=== PATIENT | male | born 1935 | race Caucasian/White ===

== ENCOUNTER → 2016-10-22 | Outpatient (CLI) | payer MEDICARE ==
[2016-10-22 10:17] LABS: Basophils # (A) 0.1 k/uL (0-0.2); Basophils % (A) 1 %; CH 29.9; CHCM 33.2; Eosinophils # (A) 0.4 k/uL (0-0.7); Eosinophils % (A) 7 %; HCT 46.4 % (39.0-53.0); Luc % (Auto) 2; Lymphocytes # (A) 1.5 k/uL (1.0-4.8); Lymphocytes % (A) 26 %; MCH 29.3 pg (25.0-35.0); MCHC 32.3 g/dL (31.0-37.0); MCV 90.6 fL (80.0-100.0); Mean Platelet Volume 7.8; Monocytes # (A) 0.2 k/uL (0-1.0); Monocytes % (A) 4 %; Neutrophils # (A) 3.6 k/uL (1.3-7.7); Neutrophils % (A) 61 %; RBC 5.12 m/uL (4.30-5.90); RDW 13.7 % (11.5-15.5); WBC 5.9 k/uL (3.8-10.6); WBC (Perox) 6.01
[2016-10-22 10:31] LABS: Potassium 5.4 mmol/L (3.5-5.1)
[2016-10-22 11:53] LABS: Appearance,Urine Clear (Clear); Bilirubin,Urine Negative (Negative); Glucose,Urine (UA) 2+ (Negative); Ketones,Urine Negative (Negative); Leukocyte Esterase,Urine Negative (Negative); Nitrite,Urine Negative (Negative); Protein,Urine Negative (Negative); Specific Gravity,Urine 1.011 (1.001-1.035); UA Billing (MACRO vs. MICRO) CHEM; Urobilinogen,Urine <2.0 mg/dL (<2.0)
== END | disposition home or self-care (01) ==
LOC: LABPAT 09:54
PROVIDERS: ATTEND Urology
DX: N20.0 Calculus of kidney (principal)
CPT/HCPCS: 80051; 81003; 82565; 84520; 85025

== ENCOUNTER 2016-10-29 06:07 | Day surgery (SDC) | payer MEDICARE ==
[2016-10-26 09:10] VITALS: BMI 28.5
[~2016-10-29 06:07] MED LIST: LACTATED RINGERS 1,000 ML IV SCH; LIDOCAINE 1% 20 ML VIAL (10MG/ML) FOR IV START INTRADERMA PRN; Pre Op ABX Message 1 EACH MISC MISCELLANE ONE; fentaNYL (PF) 50 MCG/ML 2 ML AMP IV PRN
--- NOTE | 2016-10-29 07:02 | XR ---
EXAMINATION TYPE: XR KUB DATE OF EXAM: 10/29/2016 6:39 AM COMPARISON: 10/03/2016 HISTORY: Kidney stones TECHNIQUE: 2 views FINDINGS: There is no sign of intestinal obstruction or pneumoperitoneum. Fecal pattern is normal. Th ere is no sign of a mass. There is a 6 mm density over the right kidney could be a renal stone. This is probably in the lower pole right kidney. There is no sign of a mass. IMPRESSION: There is probably a right renal calculus without change compared to old exam. Nonacute ab domen.
[2016-10-29 07:18] VITALS: RESP 16; TEMP 98.1
[2016-10-29 07:28] LABS: Glucose,Whole Blood 107 mg/dL (75-99)
[2016-10-29] MEDS ORDERED: LIDOCAINE 1% INJ 10MG/ML (20 ML MDV) ONE (07:52)
[2016-10-29] MEDS ORDERED: MIDAZOLAM 2 MG/2 ML VIAL ONE (07:52)
[2016-10-29] MEDS ORDERED: fentaNYL (PF) 50 MCG/ML 2 ML AMP ONE (07:52)
[2016-10-29] MEDS ORDERED: PROPOFOL 10 MG/ML 20 ML VIAL IV ONE (07:52)
--- NOTE | 2016-10-29 08:32 | P.OP ---
Date of Procedure: 10/29/16 Preoperative Diagnosis: Right Renal Calculus Postoperative Diagnosis: Same Procedure(s) Performed: Right Extracorporeal Shockwave Lithotripsy (ESWL) Anesthesia: MAC Surgeon: Arik Bradley Estimated Blood Loss (ml): 0 IV fluids (ml): 600 Pathology: none sent Condition: stable Disposition: PACU Indications for Procedure: The patient comes for evaluation of a kdiney stone. He developed and has had intermittent right flank pain since May 2016. An ultrasound showed an 8 mm stone in the rlp calyx. His urine is clear. He will undergo right ESWL to try to rid him of the stone and the pain Operative Findings: Excellent fragmentation. Description of Procedure: The patient was taken to the operating room and placed on the Dornier Avtodoria Delta II lithotripter in the supine position. The calculus was seen on biplanar fluoroscopy. Once the patient was properly positioned and sedated, lithotripsy was performed. The energy level was gradually increased per protocol, to an energy level of 4. After 200 shocks were administered, a 2 minute pause was instituted per protocol. A total of 2000 shocks were given at a rate of 80 shocks per minute. Fluoroscopy was utilized at a minimum to ensure proper positioning and determine the treatment status. The calculus changed in appearance, consistent with fragmentation, and was no longer visible at completion of the procedure. The patient tolerated the procedure well was taken to the recovery room in stable condition. Instructions were given to strain the urine, and the patient will follow-up within one week.
[2016-10-29 08:51] LABS: Glucose,Whole Blood 96 mg/dL (75-99)
[2016-10-29 09:30] VITALS: BP 131/69; PULSE 78
[2016-10-29] MEDS ORDERED: LACTATED RINGERS 1,000 ML IV ONE (09:39)
== END 2016-10-29 10:57 | disposition home or self-care (01) ==
LOC: ORWHC2ENDO 06:07
PROVIDERS: ATTEND Urology
DX: N20.0 Calculus of kidney (principal); N40.0 Benign prostatic hyperplasia without lower urinary tract symptoms; E78.5 Hyperlipidemia, unspecified; E11.9 Type 2 diabetes mellitus without complications; I12.9 Hypertensive chronic kidney disease with stage 1 through stage 4 chronic kidney disease, or unspecified chronic kidney disease; N18.9 Chronic kidney disease, unspecified; G20 Parkinson's disease; M19.90 Unspecified osteoarthritis, unspecified site; Z79.01 Long term (current) use of anticoagulants; Z79.4 Long term (current) use of insulin; Z79.891 Long term (current) use of opiate analgesic; Z79.899 Other long term (current) drug therapy; Z88.1 Allergy status to other antibiotic agents; Z88.5 Allergy status to narcotic agent
CPT/HCPCS: 84132; 74000; 50590; J2250; J2001; J3010; J2704; 99153

== ENCOUNTER → 2016-11-02 | Outpatient (CLI) | payer MEDICARE ==
--- NOTE | 2016-11-02 09:06 | XR ---
EXAMINATION TYPE: XR KUB DATE OF EXAM: 11/02/2016 8:53 AM HISTORY: Pain Comparison: 10/29/2016 Single KUB is submitted for interpretation. Findings: Right renal calculi: Previously noted right-sided renal calculus is not well visualized on today's st udy likely related to overlying bowel content. Right ureteral calculi: 2 calculi are seen within the right hemipelvis measuring 3.6 and 6.0 mm respe ctively. Distal ureteral calculi are difficult to exclude. Left renal calculi: None Visualized. Left ureteral calculi: None Visualized. Pelvic calcifications: None Visualized. Bowel gas pattern is unremarkable. No free air. No mass effects. IMPRESSION: 1. 2 calculi are seen within the right hemipelvis measuring 3.6 and 6.0 mm respectively. Distal urete ral calculi are difficult to exclude.
== END | disposition home or self-care (01) ==
LOC: RADXRMAIN 08:37
PROVIDERS: ATTEND Urology
DX: N20.0 Calculus of kidney (principal)
CPT/HCPCS: 74000

== ENCOUNTER → 2016-12-06 | Outpatient (CLI) | payer MEDICARE ==
--- NOTE | 2016-12-06 08:47 | MR ---
EXAMINATION TYPE: MR lumbar spine wo con DATE OF EXAM: 12/06/2016 8:01 AM COMPARISON: NONE HISTORY: Low back pain TECHNIQUE: Multiplanar, multisequence images of the lumbar spine were acquired. There appears to be transitional vertebral segment with partial lumbarization of S1 suspected with ru dimentary S1-S2 disc. Prior to any scheduled for surgical intervention radiographic correlation is ad vised. T11-T12: This level is imaged in the sagittal plane only. There appears to be disc herniation with ce ntral canal stenosis. Dedicated evaluation of the thoracic spine is recommended. L1-L2: Normal disc appearance without desiccation. No herniation, protrusion or disc bulging. No ca nal stenosis is present. Foramina are patent bilaterally. L2-L3: Normal disc appearance without desiccation. No herniation, protrusion or disc bulging. No ca nal stenosis is present. Foramina are patent bilaterally. L3-L4: Mild disc desiccation noted. Spinal canal is congenitally diminutive in size. Hypertrophic dacia nges of the facet joints and hypertrophy of the ligamentum flavum as well as minimal disc bulging res ult in mild central stenosis. L4-L5: Postoperative changes of lumbar laminectomy. Severe disc desiccation noted. Posterior disc bul ging versus granulation tissue. Constriction of the thecal sac with recurrent central stenosis diffic ult to exclude. L5-S1: Laminectomy changes noted. Partial fusion L5 on S1. No evidence for central stenosis or disc h erniation. Large anterior hypertrophic spur noted. Lumbar segments are intact. No paraspinal masses are identified. AP diameter of the central canal i s congenitally diminutive in size. Conus medullaris has a normal appearance. IMPRESSION: 1. 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 Dedicated evalua tion of the thoracic spine is advised. 2. 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
== END | disposition home or self-care (01) ==
LOC: RADMRIMAIN 07:15
PROVIDERS: ATTEND Internal Medicine Geriatric Medicine
DX: M48.06 Spinal stenosis, lumbar region (principal)
CPT/HCPCS: 72148

== ENCOUNTER → 2017-01-31 | Outpatient (CLI) | payer MEDICARE ==
[2017-01-31 11:23] LABS: Appearance,Urine Clear (Clear); Bilirubin,Urine Negative (Negative); Glucose,Urine (UA) 1+ (Negative); Ketones,Urine Negative (Negative); Leukocyte Esterase,Urine Negative (Negative); Nitrite,Urine Negative (Negative); Protein,Urine Negative (Negative); UA Billing (MACRO vs. MICRO) CHEM; Urobilinogen,Urine <2.0 mg/dL (<2.0)
--- NOTE | 2017-01-31 12:22 | XR ---
EXAMINATION TYPE: XR chest 2V DATE OF EXAM: 01/31/2017 11:44 AM COMPARISON: 06/02/2016 INDICATION: Low back pain presurgical clearance TECHNIQUE: 2 view chest FINDINGS: The heart size is normal. The pulmonary vasculature is normal. Some atelectatic changes are at the left costophrenic angle. Portion of this may be chronic. IMPRESSION: 1. Atelectasis versus scarring left costophrenic angle
== END | disposition home or self-care (01) ==
LOC: RADXRMAIN 10:58
PROVIDERS: ATTEND Internal Medicine Geriatric Medicine
DX: M54.5 Low back pain (principal)
CPT/HCPCS: 71020; 81003

== ENCOUNTER → 2017-04-30 | Outpatient (CLI) | payer MEDICARE ==
--- NOTE | 2017-04-30 17:18 | CT ---
EXAMINATION TYPE: CT iac wo con DATE OF EXAM: 04/30/2017 COMPARISON: NONE HISTORY: Patient complains of left side hearing loss. Patient has history of 3 prior surgeries to th e left ear. CT DLP: 150mGycm Automated exposure control for dose reduction was used. FINDINGS: There is very little pneumatization of the left mastoid sinus. There is osteotomy at the le ft mastoid sinus posterior to the left external auditory canal. There is normal aeration of the middl e ear cavity and epitympanic recess bilaterally. The semicircular canals and the cochlea are symmetri c. Internal auditory canals are symmetric. There is no sign of cerebellopontine angle mass. Visualized p aranasal sinuses appear normal. IMPRESSION: Old osteotomy of the left mastoid sinus and left external auditory canal without change c ompared to old CT scan of the brain of 04/01/2013. There are changes on the left side consistent with some chronic mastoiditis. No abnormality seen of the middle ear.
== END | disposition home or self-care (01) ==
LOC: RADCTMAIN 16:45
PROVIDERS: ATTEND Otolaryngology
DX: H71.90 Unspecified cholesteatoma, unspecified ear (principal)
CPT/HCPCS: 70480

== ENCOUNTER → 2018-05-05 | Outpatient (CLI) | payer MEDICARE ==
[2018-05-05 09:30] LABS: Albumin 4.2 g/dL (3.5-5.0); Potassium 5.8 mmol/L (3.5-5.1); Total Bilirubin 0.7 mg/dL (0.2-1.3); Total Protein 6.9 g/dL (6.3-8.2)
[2018-05-05 09:35] LABS: Basophils # (A) 0.1 k/uL (0-0.2); Basophils % (A) 1 %; Eosinophils # (A) 0.3 k/uL (0-0.7); Eosinophils % (A) 7 %; HCT 43.6 % (39.0-53.0); Lymphocytes # (A) 1.1 k/uL (1.0-4.8); Lymphocytes % (A) 22 %; MCH 30.4 pg (25.0-35.0); MCHC 34.3 g/dL (31.0-37.0); MCV 88.5 fL (80.0-100.0); Mean Platelet Volume 7.5; Monocytes # (A) 0.3 k/uL (0-1.0); Monocytes % (A) 6 %; Neutrophils # (A) 3.2 k/uL (1.3-7.7); Neutrophils % (A) 63 %; Platelet Count 152 k/uL (150-450); RBC 4.93 m/uL (4.30-5.90); RDW 13.9 % (11.5-15.5)
--- NOTE | 2018-05-05 12:16 | XR ---
EXAMINATION TYPE: XR chest 2V DATE OF EXAM: 05/05/2018 COMPARISON: 01/31/2017 HISTORY: 82-year-old male shortness of breath TECHNIQUE: Frontal and lateral views FINDINGS: Heart normal size. Mild elongation thoracic aorta. Pulmonary vasculature within normal limits. No co nsolidation or pleural effusion. IMPRESSION: No acute cardiopulmonary process.
[2018-05-05 18:49] LABS: Hemoglobin A1C 7.5 % (4.0-6.0)
== END | disposition home or self-care (01) ==
LOC: RADXRMAIN 08:18
PROVIDERS: ATTEND Internal Medicine Geriatric Medicine
DX: R06.02 Shortness of breath (principal); I13.10 Hypertensive heart and chronic kidney disease without heart failure, with stage 1 through stage 4 chronic kidney disease, or unspecified chronic kidney disease; E13.42 Other specified diabetes mellitus with diabetic polyneuropathy; R35.0 Frequency of micturition
CPT/HCPCS: 36415; 71046; 80053; 80061; 83036; 83880; 84484; 85025

== ENCOUNTER → 2018-05-09 | Outpatient (CLI) | payer MEDICARE ==
[~2018-05-09] MED LIST changes: -LACTATED RINGERS 1,000 ML IV SCH; -LIDOCAINE 1% 20 ML VIAL (10MG/ML) FOR IV START INTRADERMA PRN; -Pre Op ABX Message 1 EACH MISC MISCELLANE ONE; +REGADENOSON 0.4 MG/5 ML SYRINGE IV ONE; -fentaNYL (PF) 50 MCG/ML 2 ML AMP IV PRN
--- NOTE | 2018-05-09 10:44 | NM ---
EXAMINATION TYPE: NM stress lexiscan cardiolite DATE OF EXAM: 05/09/2018 COMPARISON: NONE HISTORY: Chest pain, hypertension, shortness of breath, hyperlipidemia, diabetes, and family history of coronary artery disease. TECHNIQUE: After the intravenous administration of 10.17 mCi Tc 99m Sestamibi - Cardiolite resting S PECT images acquired 45 minutes post injection. The patient received 0.4mg Lexiscan, 23.5 mCi Tc 99m Sestamibi - Stress images obtained [address] injection FINDINGS: Review of stress and rest SPECT images demonstrates a fixed defect within the inferior lateral wall m inimally increasing in intensity and its inferior wall component on stress imaging. Gated analysis s hows dyskinesis in the inferior wall and otherwise wall motion with an estimated left ventricular eje ction fraction of 55 % on stress imaging. TID is upper limits of normal measuring about 1.24. IMPRESSION: 1. 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 2. Transient ischemic dilatation coefficient is upper limits of normal. This can be seen in balanced 3 vessel ischemia are cardiomyopathy. 3. Estimated left ventricular ejection fraction of 55% on stress imaging.
--- NOTE | 2018-05-09 10:44 | ECHOF ---
Referral Reason:R06.02 SOB, R07.9 Chest pain MEASUREMENTS -------- HEIGHT: 172.7 cm WEIGHT: 81.6 kg BP: IVSd: 1.5 cm (0.6 - 1.1) LVIDd: 4.1 cm (3.9 - 5.3) LVPWd: 1.5 cm (0.6 - 1.1) IVSs: 2.3 cm LVIDs: 2.9 cm LVPWs: 2.0 cm Ao Diam: 3.7 cm (2.0 - 3.7) AV Cusp: 1.7 cm (1.5 - 2.6) LA Diam: 3.4 cm (2.7 - 3.8) MV EXCURSION: 13.536 mm (> 18.000) MV EF SLOPE: 46 mm/s (70 - 150) EPSS: 1.3 cm MV E Andrae: 0.55 m/s MV DecT: 236 ms MV A Andrae: 1.00 m/s MV E/A Ratio: 0.55 RAP: 5.00 mmHg RVSP: 13.29 mmHg FINDINGS -------- Sinus rhythm. This was a technically good study. The left ventricular size is normal. There is moderate concentric left ventricular hypertrophy. O verall left ventricular systolic function is normal with, an EF between 55 - 60 %. The right ventricle is normal in size and function. The left atrium is normal in size. The right atrium is normal in size. Aortic valve is trileaflet and is mildly thickened. The mitral valve leaflets are mildly thickened. There is trace mitral regurgitation. Trace tricuspid regurgitation present. The right ventricular systolic pressure, as measured by Dopp ler, is 13.29mmHg. Pulmonic valve appears structurally normal. The aortic root size is normal. Normal inferior vena cava with normal inspiratory collapse consistent with estimated right atrial pre ssure of 5 mmHg. The pericardium is normal. CONCLUSIONS -------- 1. Sinus rhythm. 2. This was a technically good study. 3. The left ventricular size is normal. 4. There is moderate concentric left ventricular hypertrophy. 5. Overall left ventricular systolic function is normal with, an EF between 55 - 60 %. 6. The right ventricle is normal in size and function. 7. The left atrium is normal in size. 8. The right atrium is normal in size. 9. Aortic valve is trileaflet and is mildly thickened. 10. The mitral valve leaflets are mildly thickened. 11. There is trace mitral regurgitation. 12. Trace tricuspid regurgitation present. 13. The right ventricular systolic pressure, as measured by Doppler, is 13.29mmHg. 14. Pulmonic valve appears structurally normal. 15. The aortic root size is normal. 16. Normal inferior vena cava with normal inspiratory collapse consistent with estimated right atrial pressure of 5 mmHg. 17. The pericardium is normal. SQUAD BOSS: Magda Live RDCS
--- NOTE | 2018-05-09 11:10 | EST ---
EXERCISE STRESS AGE: 82 SEX: M HT: 6' WT: 215 PROTOCOL: Lexiscan Cardiolite Stress Test. HEART RATE AT REST: 70 BLOOD PRESSURE REST: 141/71 MAXIMUM HEART RATE ACHIEVED: 95 MAXIMUM BLOOD PRESSURE: 143/54 85% MPHR: 116 100% MPHR: 137 INDICATIONS: Chest pain. CLINICAL INFORMATION: Baseline EKG shows sinus rhythm, normal axis, normal intervals. Patient was given intravenous Lexiscan as per protocol. Did not have chest pain or diagnostic ST-segment depression. CONCLUSION: 1. Negative stress test by EKG criteria. 2. Cardiolite portion of the stress test will be reported separately. MMODL / IJN: [id number] /
== END | disposition home or self-care (01) ==
LOC: RADNMMAIN 07:50
PROVIDERS: ATTEND Internal Medicine Geriatric Medicine
DX: I35.8 Other nonrheumatic aortic valve disorders (principal); I05.9 Rheumatic mitral valve disease, unspecified
CPT/HCPCS: 93017; 93306; 78452; A9500; J2785

== ENCOUNTER 2018-06-03 07:59 | Day surgery (SDC) | payer MEDICARE ==
[2018-05-26 10:17] VITALS: BMI 29.8
[~2018-06-03 07:59] MED LIST changes: +ALPRAZolam 0.25 MG TAB PO PRN; +ASPIRIN 325 MG TAB PO ONE; -REGADENOSON 0.4 MG/5 ML SYRINGE IV ONE; +SODIUM CHLORIDE 0.9% 1,000 ML in EMPTY BAG 1 BAG IV ONE
[2018-06-03 08:54] LABS: Glucose,Whole Blood 122 mg/dL (75-99)
[2018-06-03] MEDS ORDERED: LIDOCAINE 1% INJ 10MG/ML (20 ML MDV) ONE (13:38)
[2018-06-03] MEDS ORDERED: VERAPAMIL 2.5 MG/ML 2 ML AMP ONE (13:38)
[2018-06-03] MEDS ORDERED: MIDAZOLAM 2 MG/2 ML VIAL ONE (13:38)
[2018-06-03] MEDS ORDERED: fentaNYL (PF) 50 MCG/ML 2 ML AMP ONE (14:09)
[2018-06-03] MEDS ORDERED: fentaNYL (PF) 50 MCG/ML 2 ML AMP IV ONE (14:11)
[2018-06-03] MEDS ORDERED: SODIUM CHLORIDE 0.9% 1,000 ML IV ONE (14:12)
[2018-06-03] MEDS ORDERED: MIDAZOLAM 2 MG/2 ML VIAL IV ONE (14:12)
[2018-06-03] MEDS ORDERED: LIDOCAINE 1% INJ 10MG/ML (20 ML MDV) SQ ONE (14:12)
[2018-06-03] MEDS ORDERED: HEPARIN SODIUM 1,000 UN/ML (10ML VL) ONE (14:16)
[2018-06-03] MEDS: VERAPAMIL SYRINGE (5 MG/10 ML) INTRAARTER ONE ×2 (14:17→14:35)
[2018-06-03] MEDS ORDERED: HEPARIN SODIUM 1,000 UN/ML (10ML VL) IV ONE (14:17)
[2018-06-03] MEDS ORDERED: IOPAMIDOL-370 100ML BTL INJ ONE (14:26)
[2018-06-03] MEDS ORDERED: RX INFO: IV CONTRAST WAS GIVEN 1 EACH MISC MISCELLANE PRN (14:52)
[2018-06-03] MEDS ORDERED: ISOSORBIDE MONONITRATE ER 30 MG TAB.ER.24H PO STA (14:56)
--- NOTE | 2018-06-03 15:03 | P.PCN ---
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 His stress test showed evidence of inferior wall [place] with malcolm- infarction ischemia. Patient's LV function is preserved. Patient is advised to have a cardiac catheterization for definitive diagnosis. Patient has moderate renal failure and was advised that cardiac catheterization may jeopardize kidney function and sometimes may result in dialysis. Patient and fully understood and accepted. CONSENT:I have discussed the risks, benefits and alternative therapies for the above-mentioned procedure and for both sedation/analgesia as well as necessary blood product administration, if indicated, as they pertain to this patient. The patient has indicated understanding and acceptance of the risks and procedures discussed. PROCEDURE: Patient was brought to the lab in a fasting state. Patient was given some IV sedation. The right wrist is infiltrated with lidocaine and right radial artery was entered using Seldinger technique. A 6-Kazakh catheter was left in place and selective coronary arteriography was performed. Patient tolerated the procedure well. TR band was applied for hemostasis. No immediate complications were noted and patient was transferred to [facility] in a stable condition Conscious Sedation: Versed 1mg Fentanyl 25 g Duration 23 minutes HEMODYNAMICS: The aortic pressure is about 110/70. Left ventricular end- diastolic pressures were not measured SELECTIVE CORONARY ARTERIOGRAPHY: LEFT MAIN: Normal length with mild distal disease with 30% luminal narrowing THE LEFT ANTERIOR DESCENDING CORONARY ARTERY:. This is a fair caliber vessel with ectatic changes and mild irregularities with areas of 30% stenosis. No critical lesions are noted THE LEFT CIRCUMFLEX AND IS CORONARY ARTERY:. This is a moderate caliber vessel giving rise good-sized OM branch. The OM branch is about 94% stenosis proximally. The mid circumflex also has about 9095% stenosis THE RIGHT CORONARY ARTERY:. This is a good caliber vessel ectatic with a diffuse plaque without any Sigmund focal lesions. The right coronary artery is a dominant vessel LEFT VENTRICULOGRAPHY: Not performed FINAL IMPRESSION:. 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 Because of patient's kidney failure, no intervention is done today. Patient will continued on hydration and his renal function will be checked tomorrow. We'll also get and renal consult. Patient also is ALLERGIC to Nickel. I will discuss with the Dr. Wells before proceeding with intervention. PROGNOSIS: Guarded
[2018-06-03 17:18] LABS: Glucose,Whole Blood 186 mg/dL (75-99)
[2018-06-03] MEDS ORDERED: FLUTICASONE 50MCG/SPRAY NASAL 16GM EA NOSTRIL PRN (17:22)
[2018-06-03] MEDS ORDERED: HYDROcodone/APAP 7.5-325MG 1 EACH TAB PO PRN (17:22)
[2018-06-03] MEDS ORDERED: CYCLOBENZAPRINE 10 MG TAB PO PRN (17:22)
[2018-06-03] MEDS: SODIUM CHLORIDE 0.9% 1,000 ML IV SCH (17:23)
[2018-06-03 17:43] VITALS: RESP 18
[2018-06-03] MEDS: CARBIDOPA-LEVODOPA 25-100 MG 1 EACH TAB PO SCH ×2 (17:59→21:07)
[2018-06-03 20:56] LABS: Glucose,Whole Blood 215 mg/dL (75-99)
[2018-06-03] MEDS: GABAPENTIN 300 MG CAP PO SCH (21:07)
[2018-06-04] MEDS: METOPROLOL TARTRATE 25 MG TAB PO SCH ×2 (00:33→08:27)
[2018-06-04 03:07] LABS: Glucose,Whole Blood 174 mg/dL (75-99)
[2018-06-04 05:52] LABS: Glucose,Whole Blood 156 mg/dL (75-99)
[2018-06-04] MEDS ORDERED: INSULIN DETEMIR 100 UNIT/ML 10 ML VIAL SQ SCH ×5 (06:25→21:00)
[2018-06-04 06:29] LABS: Calcium 8.7 mg/dL (8.4-10.2)
[2018-06-04] MEDS ORDERED: INSULIN ASPART 100 UNIT/ML 1 ML 10 ML VIAL SQ SCH (07:30)
[2018-06-04] MEDS: CARBIDOPA-LEVODOPA 25-100 MG 1 EACH TAB PO SCH (08:27)
[2018-06-04] MEDS: GABAPENTIN 300 MG CAP PO SCH (08:27)
[2018-06-04] MEDS: SODIUM CHLORIDE 0.9% 1,000 ML IV SCH (08:28)
[2018-06-04 08:54] VITALS: BP 145/74; PULSE 58; TEMP 97.9
[2018-06-04] MEDS ORDERED: FUROSEMIDE 20 MG TAB PO SCH (09:00)
[2018-06-04] MEDS ORDERED: DOCUSATE 100 MG CAP PO SCH (09:00)
[2018-06-04] MEDS ORDERED: LORATADINE 10 MG TAB PO SCH (09:00)
[2018-06-04] MEDS ORDERED: TAMSULOSIN 0.4 MG CAP.ER.24H PO SCH (09:00)
[2018-06-04] MEDS ORDERED: ASPIRIN 81 MG PO SCH (09:00)
[2018-06-04] MEDS ORDERED: FINASTERIDE 5 MG TAB PO SCH (09:00)
[2018-06-04] MEDS ORDERED: LISINOPRIL 2.5 MG TAB PO SCH (09:00)
[2018-06-04] MEDS ORDERED: ALLOPURINOL 100 MG TAB PO SCH (09:00)
[2018-06-04] MEDS ORDERED: ISOSORBIDE MONONITRATE ER 30 MG TAB.ER.24H PO SCH (11:15)
--- NOTE | 2018-06-04 14:54 | P.PN ---
Subjective Progress Note Date: 06/04/18 Discharge note This is an 83-year-old gentleman with history of hypertension, hyperlipidemia, diabetes, who was brought to the hospital by Dr. Ybarra because of symptoms of angina. He underwent a cardiac catheterization yesterday which revealed an atypical lesion involving the OM branch and the circumflex with diffuse ectasia and plaque and the rest of the vessels. Originally the plan was to place a stent in the OM branch and the circumflex. 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 This case was discussed by Dr. Ybarra and Dr. Wells, and the decision was made to maximize his medications and discharge him home today. Continue maximum medical therapy at this time. He was seen and examined this morning, he denied any chest pain or difficulty in breathing. Blood pressure 130/60 with a heart rate in the 60s, 95% on room air. Objective - Vital Signs Vital signs: Vital Signs Temp 97.9 F 06/04/18 08:00 Pulse 58 L 06/04/18 08:00 Resp 18 06/04/18 08:00 BP 145/74 06/04/18 08:00 Pulse Ox 96 06/04/18 08:00 Intake & Output 06/03/18 06/04/18 06/04/18 18:59 06:59 18:59 Intake Total 400 450 600 Balance 400 450 600 Weight 102.2 kg Intake: IV 200 450 600 Sodium Chloride 0.9% 1, 100 450 600 000 ml @ 75 mls/hr IV . [id number] [facility] Rx#:[id number] Oral 200 - Exam PHYSICAL EXAMINATION: GENERAL: 83-year-old gentleman in no acute distress at the time of my examination HEENT: Head is atraumatic, normocephalic. Pupils equal, round. Sclera anicteric. Conjunctiva are clear. Mucous membranes of the mouth are moist. Neck is supple. There is no elevated jugular venous pressure.] bruit is heard. HEART EXAMINATION: [Heart S1, S2 normal. No murmur or gallop heard.] CHEST EXAMINATION:[ Lungs are clear to auscultation and precussion. No chest wall tenderness is noted on palpation or with deep breathing.] ABDOMEN: [ Soft, nontender. Bowel sounds are heard. No organomegaly noted]. EXTREMITIES:[ 2+ peripheral pulses with no evidence of peripheral edema and no calf tenderness noted]. Right groin soft, no evidence of any hematoma. NEUROLOGIC [patient is awake, alert and oriented ?-3.] . - Labs CBC & Chem 7: 06/04/18 05:48 Labs: Abnormal Lab Results - Last 24 Hours (Table) 06/03/18 06/03/18 06/04/18 Range/Units 17:13 20:54 03:07 Chloride (98-107) mmol/L BUN (9-20) mg/dL Creatinine (0.66-1.25) mg/dL Glucose (74-99) mg/dL POC Glucose (mg/dL) 186 H 215 H 174 H (75-99) mg/dL 06/04/18 06/04/18 Range/Units 05:48 05:51 Chloride 110 H (98-107) mmol/L BUN 40 H (9-20) mg/dL Creatinine 2.00 H (0.66-1.25) mg/dL Glucose 157 H (74-99) mg/dL POC Glucose (mg/dL) 156 H (75-99) mg/dL Assessment and Plan Plan: Assessment and plan #1 symptoms suggestive of angina, status post cardiac catheterization which revealed a lesion in the circumflex and OM branch. Made at this time to medical therapy as the patient does have an ALLERGY to nickel and stents containing nickel. #2 hypertension #3 hyperlipidemia #4 diabetes Plan Patient will be discharged home today on aspirin 81 mg daily, Lipitor will be increased to 80 mg daily, Sinemet, Lasix 20 mg daily, insulin as at home, Imdur 30 mg daily, Zestril 2-1/2 mg daily, Lopressor 25 mg daily, Dr. Wagner as needed for chest pain. Follow-up appointment will be made with Dr. Ybarra in the office post discharge. We will also obtain lytes BUN and creatinine in 5 days. Creatinine today 2.0. DNP note has been reviewed, I agree with a documented findings and plan of care. Patient was seen and examined.
[2018-06-04] MEDS ORDERED: ATORVASTATIN 10 MG TAB PO SCH (17:30)
== END 2018-06-04 11:50 | disposition home or self-care (01) ==
LOC: CATHCVL 07:59 → 6SEL 14:32 → CATHCVL 06-04 11:50
PROVIDERS: ATTEND Internal Medicine Cardiovascular Disease
DX: I25.10 Atherosclerotic heart disease of native coronary artery without angina pectoris (principal); R94.39 Abnormal result of other cardiovascular function study; I10 Essential (primary) hypertension; E11.9 Type 2 diabetes mellitus without complications; E78.00 Pure hypercholesterolemia, unspecified; N19 Unspecified kidney failure; G20 Parkinson's disease; Z82.49 Family history of ischemic heart disease and other diseases of the circulatory system; Z79.4 Long term (current) use of insulin; Z79.899 Other long term (current) drug therapy; Z91.048 Other nonmedicinal substance allergy status; Z88.1 Allergy status to other antibiotic agents; Z88.5 Allergy status to narcotic agent; Z88.8 Allergy status to other drugs, medicaments and biological substances
CPT/HCPCS: 93454; 80048; C1894; C1769; S0138; J2250; J2001; J3010; J1644; Q9967

== ENCOUNTER → 2018-06-13 | Outpatient (CLI) | payer MEDICARE ==
[2018-06-13 14:03] LABS: Calcium 8.6 mg/dL (8.4-10.2); Potassium 4.6 mmol/L (3.5-5.1)
== END | disposition home or self-care (01) ==
LOC: LABWHC1 13:21
PROVIDERS: ATTEND Internal Medicine Cardiovascular Disease
DX: L24.81 Irritant contact dermatitis due to metals (principal); I25.10 Atherosclerotic heart disease of native coronary artery without angina pectoris; I10 Essential (primary) hypertension; N19 Unspecified kidney failure
CPT/HCPCS: 36415; 80048

== ENCOUNTER → 2019-01-28 | Outpatient (CLI) | payer MEDICARE ==
[2019-01-28 10:43] LABS: HCT 48.1 % (39.0-53.0); HGB 15.4 gm/dL (13.0-17.5); MCH 29.2 pg (25.0-35.0); MCHC 32.1 g/dL (31.0-37.0); Mean Platelet Volume 7.4; Platelet Count 146 k/uL (150-450); RBC 5.29 m/uL (4.30-5.90); WBC 6.3 k/uL (3.8-10.6)
[2019-01-28 14:43] LABS: Appearance,Urine Clear (Clear); Bilirubin,Urine Negative (Negative); Blood,Urine Negative (Negative); Color,Urine Yellow; Glucose,Urine (UA) Negative (Negative); Ketones,Urine Negative (Negative); Leukocyte Esterase,Urine Negative (Negative); Nitrite,Urine Negative (Negative); Protein,Urine Negative (Negative); Specific Gravity,Urine 1.013 (1.001-1.035); Urobilinogen,Urine <2.0 mg/dL (<2.0)
[2019-01-28 16:54] LABS: Parathyroid Hormone Intact 252.3 pg/mL (14.0-72.0)
[2019-01-28 17:56] LABS: Iron Saturation 34.4 (15.00-50.00)
[2019-01-28 18:05] LABS: Vitamin D 25 Hydroxy 18.9 ng/mL (30.0-100.0)
[2019-01-28 18:07] LABS: Magnesium 2.2 mg/dL (1.5-2.4)
[2019-01-28 18:08] LABS: Anion Gap 9.3 mmol/L (4.00-12.00); Calcium 9.1 mg/dL (8.7-10.3); Carbon Dioxide 23.7 mmol/L (21.6-31.8); Phosphorus 3.3 mg/dL (2.4-5.1); Potassium 4.9 mmol/L (3.5-5.5)
[2019-01-28 18:38] LABS: Uric Acid 8.7 mg/dL (3.7-8.7)
== END | disposition home or self-care (01) ==
LOC: LABWHC1 09:29
PROVIDERS: ATTEND Nurse Practitioner Family
DX: N39.0 Urinary tract infection, site not specified (principal); N17.9 Acute kidney failure, unspecified; D64.9 Anemia, unspecified; M10.9 Gout, unspecified; E55.9 Vitamin D deficiency, unspecified; N25.81 Secondary hyperparathyroidism of renal origin
CPT/HCPCS: 36415; 80048; 81003; 82306; 82728; 83540; 83550; 83735; 83970; 84100; 84550; 85027

== ENCOUNTER → 2019-02-16 | Outpatient (CLI) | payer MEDICARE ==
--- NOTE | 2019-02-17 11:48 | US ---
EXAMINATION TYPE: US kidneys/renal and bladder DATE OF EXAM: 02/16/2019 COMPARISON: NONE CLINICAL HISTORY: N17.9 Acute Kidney Injury. EXAM MEASUREMENTS: Right Kidney: 10.2 x 4.8 x 4.8 cm Left Kidney: 11.2 x 3.8 x 5.0 cm Right Kidney: lobular surface texture Left Kidney: echogenic foci measuring 3mm, stone vs vascular calcification, lobular surface texture Bladder: wnl IMPRESSION: 1. Probable nonobstructing cortical renal calcification left kidney.
== END | disposition home or self-care (01) ==
LOC: RADUSWWP 16:03
PROVIDERS: ATTEND Nurse Practitioner Family
DX: N17.9 Acute kidney failure, unspecified (principal)
CPT/HCPCS: 76770

== ENCOUNTER → 2019-05-01 | Outpatient (CLI) | payer MEDICARE ==
[2019-05-01 16:42] LABS: African American GFR (CKD) 30 (>60 ml/min/1.73 sqM); Anion Gap 12 mmol/L; Blood Urea Nitrogen 65 mg/dL (9-20); Calcium 8.9 mg/dL (8.4-10.2); Carbon Dioxide 17 mmol/L (22-30); Chloride 110 mmol/L (98-107); Glucose 67 mg/dL (74-99); Potassium 5.2 mmol/L (3.5-5.1); Sodium 139 mmol/L (137-145)
== END | disposition home or self-care (01) ==
LOC: LABWHC1 16:06
PROVIDERS: ATTEND Internal Medicine Nephrology
DX: N17.9 Acute kidney failure, unspecified (principal)
CPT/HCPCS: 36415; 80048

== ENCOUNTER → 2019-05-05 | Outpatient (CLI) | payer MEDICARE ==
[2019-05-05 18:54] LABS: Potassium 5.2 mmol/L (3.5-5.5)
== END | disposition home or self-care (01) ==
LOC: LABWHC1 14:02
PROVIDERS: ATTEND Otolaryngology
DX: E11.9 Type 2 diabetes mellitus without complications (principal); I10 Essential (primary) hypertension
CPT/HCPCS: 36415; 84132; 84295

== ENCOUNTER → 2019-05-05 | Outpatient (CLI) | payer MEDICARE ==
--- NOTE | 2019-05-05 20:06 | XR ---
EXAMINATION TYPE: XR Hip Limited LT DATE OF EXAM: 05/05/2019 CLINICAL HISTORY: Left hip pain. TECHNIQUE: AP and frogleg views of the left hip are obtained. COMPARISON: None. FINDINGS: There is no acute fracture/dislocation evident in the left hip. Mild to moderate acetabula r spurring is seen. Joint space is fairly well maintained. Some spurring near level of greater troch anter is present. The overlying soft tissue appears unremarkable. IMPRESSION: As above.
== END | disposition home or self-care (01) ==
LOC: RADXRMAIN 13:20
PROVIDERS: ATTEND Internal Medicine Geriatric Medicine
DX: M76.892 Other specified enthesopathies of left lower limb, excluding foot (principal)
CPT/HCPCS: 73501

== ENCOUNTER → 2019-05-05 | Outpatient (CLI) | payer MEDICARE ==
--- NOTE | 2019-05-05 14:29 | CT ---
EXAMINATION TYPE: CT sinus wo con DATE OF EXAM: 05/05/2019 COMPARISON: NONE HISTORY: Right sided facial pain and pressure CT DLP: 553 mGycm. Automated Exposure Control for Dose Reduction was Utilized. TECHNIQUE: CT scan of the sinuses is performed without contrast, axial images are obtained, coronal r eformatted images are also reviewed. FINDINGS: The visualized paranasal sinuses and mastoid air cells are well aerated and however there appears to be postsurgical change of the left mastoid air cells. The ostiomeatal complexes are patent. Small mid dle nasal turbinate waqar bullosa is seen on the right. Small nonobstructive Farshda cells are presen t bilaterally. Frontal recesses are patent. No significant nasal turbinate mucosal hypertrophy. Bony orbits are intact. Temporomandibular joints are symmetric and unremarkable. The maxillary spine and n tevin bone are intact. There is slight undulation of the nasal septum however it is overall midline. Evaluation of intracranial structures are suboptimal given technique however sulcal prominence and ve ntricular prominence are seen likely on the basis of age-related atrophy. Orbits appear symmetric. Ri ght maxillary molar periapical lucency is noted. Near cortical breakthrough seen on the buccal surfac e. No surrounding fluid collection. IMPRESSION: 1. The sinuses are clear and the ostiomeatal complex is patent bilaterally. 2. Nonobstructing small right middle nasal turbinate waqar bullosa and bilateral Farshad cells. 3. Right maxillary molar dental disease with near cortical breakthrough. This may account for this pa tient's right-sided facial pain. Direct visualization is recommended.
== END | disposition home or self-care (01) ==
LOC: RADCTMAIN 13:15
PROVIDERS: ATTEND Otolaryngology
DX: J32.8 Other chronic sinusitis (principal); K08.9 Disorder of teeth and supporting structures, unspecified; Z88.1 Allergy status to other antibiotic agents; Z88.6 Allergy status to analgesic agent; Z88.5 Allergy status to narcotic agent
CPT/HCPCS: 36415; 70486; 84132; 84295

== ENCOUNTER 2019-07-18 21:35 | Inpatient (IN) | payer MEDICARE ==
[2019-07-18] MEDS ORDERED: SODIUM CHLORIDE 0.9% 500 ML 500 ML IV STA (22:27)
[2019-07-18] MEDS ORDERED: ONDANSETRON 4 MG/2 ML VIAL IVP STA (22:27)
[2019-07-18] MEDS ORDERED: HYDROmorphone 0.5 MG/0.5 ML SYRINGE IVP STA (22:28)
[2019-07-18 23:13] LABS: Basophils % (A) 1 %; Eosinophils # (A) 0.7 k/uL (0-0.7); Eosinophils % (A) 8 %; HCT 41.9 % (39.0-53.0); HGB 13.7 gm/dL (13.0-17.5); Lymphocytes # (A) 1.4 k/uL (1.0-4.8); Lymphocytes % (A) 18 %; MCH 30.2 pg (25.0-35.0); MCHC 32.6 g/dL (31.0-37.0); MCV 92.5 fL (80.0-100.0); Mean Platelet Volume 7.2; Monocytes # (A) 0.4 k/uL (0-1.0); Monocytes % (A) 4 %; Neutrophils # (A) 5.5 k/uL (1.3-7.7); Neutrophils % (A) 68 %; Platelet Count 182 k/uL (150-450); RBC 4.53 m/uL (4.30-5.90); RDW 13.7 % (11.5-15.5); WBC 8.1 k/uL (3.8-10.6)
[2019-07-18 23:22] LABS: Albumin 4.3 g/dL (3.5-5.0); Potassium 5.4 mmol/L (3.5-5.1); Total Bilirubin 0.7 mg/dL (0.2-1.3); Total Protein 7.2 g/dL (6.3-8.2)
--- NOTE | 2019-07-18 23:53 | CT ---
EXAMINATION TYPE: CT abdomen pelvis wo con DATE OF EXAM: 07/18/2019 COMPARISON: None HISTORY: RLQ pain CT DLP: 1054.4 mGycm Automated exposure control for dose reduction was used. TECHNIQUE: Helical acquisition of images was performed from the lung bases through the pelvis. FINDINGS: There is some infiltrate and atelectasis at the lung bases. Heart is enlarged. There is coronary jasmyne ry calcification. Liver spleen pancreas appear normal. Bile ducts are not dilated. Stomach has normal size. There is no evidence of pancreatic mass. There is pancreatic atrophy. There is no adrenal mass. Kidneys show no hydronephrosis. There is no retroperitoneal adenopathy. Ure ters are not dilated. Bladder distends smoothly. There is 7 mm calculus in the urinary bladder on the left side. Prostate is enlarged and measures 5.8 cm. There is no inguinal hernia. Appendix appears n ormal. There is no mesenteric edema. There is no ascites or free air. There is no sign of a bowel obs truction. There is previous posterior fusion surgery at L4-5. There is lower lumbar laminectomy. There are spon dylotic changes in the lower thoracic spine and lower lumbar spine. There is no compression fracture. Bony pelvis is intact. IMPRESSION: BILATERAL LOWER LOBE PULMONARY BASILAR INFILTRATES AND ATELECTASIS. CARDIOMEGALY. NO ACUTE ABNORMALITY WITHIN THE ABDOMEN PELVIS. I DO NOT SEE A CAUSE FOR RIGHT LOWER QUADRANT PAIN.
[2019-07-19 01:42] LABS: Appearance,Urine Clear (Clear); Bilirubin,Urine Negative (Negative); Blood,Urine Negative (Negative); Color,Urine Yellow; Glucose,Urine (UA) Negative (Negative); Ketones,Urine Negative (Negative); Leukocyte Esterase,Urine Negative (Negative); Nitrite,Urine Negative (Negative); Protein,Urine Negative (Negative); Specific Gravity,Urine 1.015 (1.001-1.035); Urobilinogen,Urine <2.0 mg/dL (<2.0)
--- NOTE | 2019-07-19 01:42 | ED ---
Abdominal Pain HPI - General Source: patient Mode of arrival: wheelchair Limitations: no limitations <Fatuma Atkins - Last Filed: 07/19/19 04:02> <Brooklyn Salcedo - Last Filed: 07/19/19 06:31> - General Chief Complaint: Abdominal Pain Stated Complaint: abd pain Time Seen by Provider: 07/18/19 22:06 - History of Present Illness Initial Comments: 84-year-old male patient presents to the emergency department today for evaluation of right upper quadrant pain with radiation to the right flank. Patient states pain started for the last couple of days but has been worsening. States the pain worsens significantly with deep inspiration, laughing, or coughing. Denies any nausea or vomiting. States a couple of weeks ago he was constipated, took several stool softeners and did have large bowel movement. St ates there was a period of 7 days where he did not have a bowel movement and then started to have regular bowel movements for the last few days. Patient states he has had 2 bowel movements today. He denies any diarrhea, hematochezia, or melena. He denies any fever or chills. He denies any hematu kay, dysuria, urinary frequency, urinary urgency. States he does have chronic kidney disease and does have decreased urine output related to this. Denies any history of abdominal surgery. Patient denies any recent rash, chest pain, numbness, tingling, dizziness, weakness, headache, visual changes, or any other complaints. (Fatuma Atkins) - Related Data Home Medications Medication Instructions Recorded Confirmed Allopurinol [Zyloprim] 100 mg PO DAILY 06/02/16 07/18/19 Cyclobenzaprine [Flexeril] 10 mg PO HS PRN 06/02/16 07/18/19 Furosemide [Lasix] 20 mg PO BID 06/02/16 07/18/19 rOPINIRole HCL [Requip] 0.75 mg PO BID 06/02/16 07/18/19 Gabapentin [Neurontin] 600 mg PO BID 10/26/16 07/18/19 Hydrocodone/Acetaminophen [Lortab 1 - 2 tab PO Q6HR PRN 10/26/16 07/18/19 7.5-325 mg Tablet] Cetirizine HCl [Zyrtec] 10 mg PO DAILY 05/26/18 07/18/19 Docusate [Colace] 100 mg PO BID 05/26/18 07/18/19 Finasteride [Proscar] 5 mg PO DAILY 05/26/18 07/18/19 Insulin Aspart [NovoLOG Flexpen] 15 units SQ AC-TID 05/26/18 07/18/19 Metoprolol Tartrate [Lopressor] 25 mg PO BID 05/26/18 07/18/19 Tamsulosin HCl [Flomax] 0.4 mg PO DAILY 05/26/18 07/18/19 Albuterol Sulfate [Proair Hfa] 2 puff INHALATION RT-Q4H PRN 07/18/19 07/18/19 Aspirin 81 mg PO DAILY 07/18/19 07/18/19 Atorvastatin [Lipitor] 40 mg PO DAILY 07/18/19 07/18/19 Carbidopa-Levodopa 25-100 mg 1 tab PO TID 07/18/19 07/18/19 [Sinemet 25-100 mg] Clopidogrel [Plavix] 75 mg PO DAILY 07/18/19 07/18/19 Ergocalciferol [Vitamin D2] 50,000 unit PO Q14D 07/18/19 07/18/19 Insulin Aspart [NovoLOG Flexpen] See Protocol SQ AC-TID 07/18/19 07/18/19 Insulin Glargine,Hum.rec.anlog 65 units SQ DAILY 07/18/19 07/18/19 [Charlotte Ledesma] Previous Rx's Medication Instructions Recorded Isosorbide Mononitrate ER [Imdur] 30 mg PO DAILY #30 tab.er.24h 06/04/18 Nitroglycerin Sl Tabs [Nitrostat] 0.4 mg SUBLINGUAL Q5M PRN #25 tab 06/04/18 Allergies Allergy/AdvReac Type Severity Reaction Status Date / Time baclofen AdvReac Severe Nausea & Verified 07/18/19 22:28 Vomiting hydromorphone HCl AdvReac Nausea & Verified 07/18/19 22:28 [From Dilaudid] Vomiting morphine AdvReac Hallucinati Verified 07/18/19 22:28 ons vancomycin AdvReac Chills, Verified 07/18/19 22:28 Sweating, Did not feel well Review of Systems ROS Other: All systems not noted in ROS Statement are negative. <Fatuma Atkins M - Last Filed: 07/19/19 04:02> ROS Other: All systems not noted in ROS Statement are negative. <Brooklyn Salcedo - Last Filed: 07/19/19 06:31> ROS Statement: Those systems with pertinent positive or pertinent negative responses have been documented in the HPI. Past Medical History Past Medical History: Coronary Artery Disease (CAD), Cancer, Chest Pain / Angina, Heart Failure, Diabetes Mellitus, Hyperlipidemia, Hypertension, Osteoarthritis (OA) Additional Past Medical History / Comment(s): See Dr Ybarra's H&P. parkinson's, gout, hx basal cell carcinoma on head, melanoma lt shoulder,shortness of breath, kidney stones History of Any Multi-Drug Resistant Organisms: None Reported, MRSA Date of last positivie culture/infection: 2004 MDRO Source:: rt shoulder Past Surgical History: Back Surgery, Ear Surgery, Heart Catheterization, Orthopedic Surgery, Tonsillectomy Additional Past Surgical History / Comment(s): cody knee replacement, cody. carpal tunnel release, cody shoulder rotator cuff repair, back surgery x5, lt ear surgery x3 with replacement malleus,incus,stapes, wide excision melanoma left shoulder, I&D rt thumb,lithotripsy,cystoscopy with kidney stone retrieved,cody cataract, face and ear multiple lesion removal, oral surgery Past Anesthesia/Blood Transfusion Reactions: No Reported Reaction Additional Past Anesthesia/Blood Transfusion Reaction / Comment(s): hx vertigo Past Psychological History: No Psychological Hx Reported Smoking Status: Never smoker Past Alcohol Use History: None Reported Past Drug Use History: None Reported - Past Family History Mother Family Medical History: Diabetes Mellitus Father Family Medical History: Coronary Artery Disease (CAD), Hypertension Brother(s) Family Medical History: Coronary Artery Disease (CAD), Diabetes Mellitus, Hypertension, Neurologic Disorder Sister(s) Family Medical History: Cancer, COPD, Diabetes Mellitus, Hypertension <Fatuma Atkins - Last Filed: 07/19/19 04:02> General Exam Limitations: no limitations General appearance: alert, in no apparent distress, other (Physical well- developed, well-nourished adult male patient in no acute distress. Vital signs upon presentation are temperature 97.9F, pulse 60, respirations 17, blood pressure 122/70, pulse ox 96% on room air.) ENT exam: Present: normal exam, normal oropharynx, mucous membranes moist Respiratory exam: Present: normal lung sounds bilaterally. Absent: respiratory distress, wheezes, rales, rhonchi, stridor Cardiovascular Exam: Present: regular rate, normal rhythm, normal heart sounds. Absent: systolic murmur, diastolic murmur, rubs, gallop, clicks GI/Abdominal exam: Present: soft, tenderness (Right upper quadrant tenderness), normal bowel sounds. Absent: distended, guarding, rebound, rigid Neurological exam: Present: alert, oriented X3, CN II-XII intact Psychiatric exam: Present: normal affect, normal mood Skin exam: Present: warm, dry, intact, normal color. Absent: rash <Fatuma Atkins - Last Filed: 07/19/19 04:02> Course Vital Signs 07/18/19 07/18/19 07/18/19 21:36 22:50 23:48 Temperature 97.9 F Pulse Rate 60 67 64 Respiratory 17 18 18 Rate Blood Pressure 122/70 129/77 136/73 O2 Sat by Pulse 96 94 L 96 Oximetry 07/19/19 07/19/19 00:33 03:12 Temperature Pulse Rate 64 68 Respiratory 18 20 Rate Blood Pressure 136/73 117/74 O2 Sat by Pulse 96 93 L Oximetry Medical Decision Making - Lab Data Result diagrams: 07/18/19 22:36 07/18/19 22:36 - EKG Data -: EKG Interpreted by [facility] - Radiology Data Radiology results: report reviewed, image reviewed <Fatuma Atkins - Last Filed: 07/19/19 04:02> - Lab Data Result diagrams: 07/18/19 22:36 07/18/19 22:36 <Brooklyn Salcedo - Last Filed: 07/19/19 06:31> - Medical Decision Making 84-year-old male patient with past medical history significant for chronic renal failure, coronary artery disease, Parkinson's, melanoma, heart failure, diabetes, hyperlipidemia, hypertension presents to the emergency department today for evaluation of right upper quadrant and right upper back pain. Patient reports worsening of symptoms with deep breathing, coughing, or laughing. Physical examination did reveal mild right upper quadrant tenderness. Labs reviewed and did reveal evidence for renal failure with elevated BUN and creatinine, stable numbers. Troponin negative. EKG showed sinus rhythm. Patient did have mild improvement of symptoms with the administration of pain medication. CT abdomen and pelvis was obtained without contrast which showed no acute abnormalities. I did discuss the results and findings with my attending physician, she recommended adding d-dimer which was elevated at 1.3. Given patient's history of renal failure we are unable to perform CT so we will obtain VQ scan in the morning. He will be given a dose of lovenox until VQ results are available. I did discuss results and plan with the patient and , they are agreeable. (Fatuma Atkins) Patient care was discussed with admitting physician Dr. Gaitan agrees with plan for admission. (Brooklyn Salcedo) - Lab Data Lab Results 07/18/19 07/18/19 07/18/19 Range/Units 22:36 22:36 22:36 WBC 8.1 (3.8-10.6) k/uL RBC 4.53 (4.30-5.90) m/uL Hgb 13.7 (13.0-17.5) gm/dL Hct 41.9 (39.0-53.0) % MCV 92.5 (80.0-100.0) fL MCH 30.2 (25.0-35.0) pg MCHC 32.6 (31.0-37.0) g/dL RDW 13.7 (11.5-15.5) % Plt Count 182 (150-450) k/uL Neutrophils % 68 % Lymphocytes % 18 % Monocytes % 4 % Eosinophils % 8 % Basophils % 1 % Neutrophils # 5.5 (1.3-7.7) k/uL Lymphocytes # 1.4 (1.0-4.8) k/uL Monocytes # 0.4 (0-1.0) k/uL Eosinophils # 0.7 (0-0.7) k/uL Basophils # 0.0 (0-0.2) k/uL PT (9.0-12.0) sec INR (<1.2) APTT (22.0-30.0) sec D-Dimer (<0.60) mg/L FEU Sodium 138 (137-145) mmol/L Potassium 5.4 H (3.5-5.1) mmol/L Chloride 105 (98-107) mmol/L Carbon Dioxide 20 L (22-30) mmol/L Anion Gap 13 mmol/L BUN 52 H (9-20) mg/dL Creatinine 2.20 H (0.66-1.25) mg/dL Est GFR (CKD-EPI)AfAm 31 (>60 ml/min/1.73 sqM) Est GFR (CKD-EPI)NonAf 26 (>60 ml/min/1.73 sqM) Glucose 137 H (74-99) mg/dL Plasma Lactic Acid Eladio 1.5 (0.7-2.0) mmol/L Calcium 9.0 (8.4-10.2) mg/dL Total Bilirubin 0.7 (0.2-1.3) mg/dL AST 24 (17-59) U/L ALT 11 L (21-72) U/L Alkaline Phosphatase 134 H (38-126) U/L Total Protein 7.2 (6.3-8.2) g/dL Albumin 4.3 (3.5-5.0) g/dL Amylase 79 (30-110) U/L Lipase 164 (23-300) U/L Urine Color Urine Appearance (Clear) Urine pH (5.0-8.0) Ur Specific [place] (1.001-1.035) Urine Protein (Negative) Urine Glucose (UA) (Negative) Urine Ketones (Negative) Urine Blood (Negative) Urine Nitrite (Negative) Urine Bilirubin (Negative) Urine Urobilinogen (<2.0) mg/dL Ur Leukocyte Esterase (Negative) 07/18/19 07/19/19 Range/Units 22:36 01:10 WBC (3.8-10.6) k/uL RBC (4.30-5.90) m/uL Hgb (13.0-17.5) gm/dL Hct (39.0-53.0) % MCV (80.0-100.0) fL MCH (25.0-35.0) pg MCHC (31.0-37.0) g/dL RDW (11.5-15.5) % Plt Count (150-450) k/uL Neutrophils % % Lymphocytes % % Monocytes % % Eosinophils % % Basophils % % Neutrophils # (1.3-7.7) k/uL Lymphocytes # (1.0-4.8) k/uL Monocytes # (0-1.0) k/uL Eosinophils # (0-0.7) k/uL Basophils # (0-0.2) k/uL PT 10.4 (9.0-12.0) sec INR 1.0 (<1.2) APTT 24.2 (22.0-30.0) sec D-Dimer 1.32 H (<0.60) mg/L FEU Sodium (137-145) mmol/L Potassium (3.5-5.1) mmol/L Chloride (98-107) mmol/L Carbon Dioxide (22-30) mmol/L Anion Gap mmol/L BUN (9-20) mg/dL Creatinine (0.66-1.25) mg/dL Est GFR (CKD-EPI)AfAm (>60 ml/min/1.73 sqM) Est GFR (CKD-EPI)NonAf (>60 ml/min/1.73 sqM) Glucose (74-99) mg/dL Plasma Lactic Acid Eladio (0.7-2.0) mmol/L Calcium (8.4-10.2) mg/dL Total Bilirubin (0.2-1.3) mg/dL AST (17-59) U/L ALT (21-72) U/L Alkaline Phosphatase (38-126) U/L Total Protein (6.3-8.2) g/dL Albumin (3.5-5.0) g/dL Amylase (30-110) U/L Lipase (23-300) U/L Urine Color Yellow Urine Appearance Clear (Clear) Urine pH 5.0 (5.0-8.0) Ur Specific [place] 1.015 (1.001-1.035) Urine Protein Negative (Negative) Urine Glucose (UA) Negative (Negative) Urine Ketones Negative (Negative) Urine Blood Negative (Negative) Urine Nitrite Negative (Negative) Urine Bilirubin Negative (Negative) Urine Urobilinogen <2.0 (<2.0) mg/dL Ur Leukocyte Esterase Negative (Negative) - EKG Data EKG Comments: EKG obtained at 2237 shows sinus rhythm with occasional PVCs. Ventricular rate is 70, DE interval 186, QRS duration 96, QT 404, QTC 436. No evidence of ST elevation or depression. (Fatuma Atkins) - Radiology Data CT abdomen and pelvis without contrast are obtained. Report was reviewed in its entirety. Impression by Dr. Rivas shows bilateral lower lobe pulmonary basilar infiltrates and atelectasis. Cardiomegaly. No acute abnormality within the abdomen and pelvis. (Fatuma Atkins) Disposition Decision to Admit Reason: Admit from EC Decision Date: 07/19/19 Decision Time: 03:07 <Fatuma Atkins - Last Filed: 07/19/19 04:02> <Brooklyn Salcedo - Last Filed: 07/19/19 06:31> Clinical Impression: Pain aggravated by coughing and deep breathing, RUQ pain, Elevated d-dimer Disposition: ADMITTED IP TO THIS [facility] Condition: Serious
[2019-07-19 02:38] LABS: Partial Thromboplastin Time 24.2 sec (22.0-30.0); Prothrombin Time 10.4 sec (9.0-12.0)
[2019-07-19 02:40] LABS: D-Dimer 1.32 mg/L FEU (<0.60)
[2019-07-19] MEDS ORDERED: ENOXAPARIN 100 MG/ML SYRINGE SQ ONE (03:00)
[2019-07-19] MEDS ORDERED: NALOXONE 0.4 MG/ML 1 ML VIAL IV PRN (04:00)
[2019-07-19] MEDS ORDERED: ONDANSETRON 4 MG/2 ML VIAL IVP PRN (04:01)
[2019-07-19 04:55] VITALS: BMI 30.8
[2019-07-19] MEDS: HYDROmorphone 0.5 MG/0.5 ML SYRINGE IVP PRN ×2 (05:01→10:49)
[2019-07-19] MEDS: INSULIN ASPART (NovoLOG) 100 UNIT/ML VIAL SQ SCH ×4 (06:07→21:30)
[2019-07-19 06:15] LABS: Glucose,Whole Blood 136 mg/dL (75-99)
--- NOTE | 2019-07-19 08:43 | NM ---
EXAMINATION TYPE: NM pul vent and perfuse DATE OF EXAM: 07/19/2019 COMPARISON: NONE HISTORY: Shortness of breath TECHNIQUE: Utilizing inhalation of 68.9 mCi Tc 99m DTPA aerosol and intravenous injection of 5.3 mCi of Tc 99m MAA, ventilation and perfusion images are acquired post injection in multiple projections. FINDINGS: Normal radiotracer distribution is noted in the lungs. There is no evidence of mismatched defects. IMPRESSION: THIS EXAMINATION IS LOW PROBABILITY FOR PULMONARY EMBOLUS.
[2019-07-19] MEDS ORDERED: ALBUTEROL NEBULIZED 2.5 MG/3 ML INHALATION PRN (09:24)
[2019-07-19] MEDS ORDERED: CYCLOBENZAPRINE 10 MG TAB PO PRN (09:24)
[2019-07-19] MEDS ORDERED: HYDROcodone/APAP 7.5-325MG 1 EACH TAB PO PRN (09:24)
[2019-07-19] MEDS ORDERED: NITROGLYCERIN SL TABS 0.4 MG TAB SUBLINGUAL PRN (09:24)
[2019-07-19] MEDS: ISOSORBIDE MONONITRATE ER 30 MG TAB.ER.24H PO SCH (10:48)
[2019-07-19] MEDS: METOPROLOL TARTRATE 25 MG TAB PO SCH ×2 (10:48→21:30)
[2019-07-19] MEDS: INSULIN DETEMIR (LEVEMIR) 100 UNIT/ML SYR SQ SCH (11:01)
--- NOTE | 2019-07-19 11:37 | P.HPIM ---
History of Present Illness H&P Date: 07/19/19 Chief Complaint: Abdominal pain This is an 84-year-old male patient of Dr. 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 Originally the plan was to place a stent in the OM branch and the circumflex. 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 Patient was recommended for medical management. Patient gives history that he has had abdominal pain the right upper quadrant and right back pain for greater than 1 month that waxes and wanes but became much worse yesterday. Pain is on the right side under his rib cage. He denies any fall or injury to the area. He does not think he has any change of the pain with food intake. He denies any nausea or vomiting. He states he feels a little bloated. He feels like there is a knot inside. He denies any change in his urine. He does have a slow urinary stream but this is normal for him and he is status post 6 back surgeries. He also gives history of having diarrhea 1 week ago after taking stool softeners and then for 7 days did not have a bowel movement. He is now having small bowel movements 3 times daily. Patient came into [facility] emergency center for evaluation. He was afebrile, vital signs stable, CBC unremarkable. BUN 52 and creatinine 2.20 which seems to be his baseline, blood sugar 137, potassium 5.4, CO2 20. CAT scan of the abdomen and pelvis with contrast showed no acute abnormalities. A d-dimer was done that showed 1.3 and patient underwent a VQ scan that showed low probability. Patient was admitted to the cardiac stepdown unit. HIDA scan ordered. Review of Systems Constitutional: Denies anorexia, Denies chills, Denies fatigue, Denies fever, Denies lethargy, Denies poor appetite, Denies weakness Eyes: denies blurred vision, denies pain Ears, nose, mouth and throat: Denies dysphagia, Denies headache, Denies nasal congestion, Denies nasal discharge, Denies sore throat, Denies vertigo Cardiovascular: Denies chest pain, Denies dyspnea on exertion, Denies edema, Denies shortness of breath, Denies syncope Respiratory: Denies congestion, Denies cough, Denies cough with sputum, Denies dyspnea, Denies excessive sputum, Denies hemoptysis, Denies home oxygen, Denies wheezing Gastrointestinal: Reports abdominal pain, Denies constipation, Denies diarrhea, Denies loss of appetite, Denies nausea, Denies vomiting Genitourinary: Reports flank pain, Reports urinary hesitancy, Denies dysuria, Denies urinary frequency, Denies urinary retention Musculoskeletal: Denies frequent falls, Denies gait dysfunction, Denies muscle weakness, Denies myalgias Integumentary: Denies pruritus, Denies rash, Denies wounds Neurological: Denies change in mentation, Denies change in speech, Denies gait dysfunction, Denies numbness, Denies weakness Psychiatric: Denies anxiety, Denies depression Endocrine: Denies fatigue, Denies weight change Past Medical History Past Medical History: Coronary Artery Disease (CAD), Cancer, Chest Pain / Angina, Heart Failure, Diabetes Mellitus, Hyperlipidemia, Hypertension, Oste oarthritis (OA) Additional Past Medical History / Comment(s): See Dr Ybarra's H&P. parkinson's, gout, hx basal cell carcinoma on head, melanoma lt shoulder,shortness of breath, kidney stones History of Any Multi-Drug Resistant Organisms: None Reported, MRSA Date of last positivie culture/infection: 2004 MDRO Source:: rt shoulder Past Surgical History: Back Surgery, Ear Surgery, Heart Catheterization, Orthopedic Surgery, Tonsillectomy Additional Past Surgical History / Comment(s): cody knee replacement, cody. carpal tunnel release, cody shoulder rotator cuff repair, back surgery x5, lt ear surgery x3 with replacement malleus,incus,stapes, wide excision melanoma left shoulder, I&D rt thumb,lithotripsy,cystoscopy with kidney stone retrieved,cody cataract, face and ear multiple lesion removal, oral surgery Past Anesthesia/Blood Transfusion Reactions: No Reported Reaction Additional Past Anesthesia/Blood Transfusion Reaction / Comment(s): hx vertigo Past Psychological History: No Psychological Hx Reported Smoking Status: Never smoker Past Alcohol Use History: None Reported Past Drug Use History: None Reported - Past Family History Mother Family Medical History: Diabetes Mellitus Father Family Medical History: Coronary Artery Disease (CAD), Hypertension Brother(s) Family Medical History: Coronary Artery Disease (CAD), Diabetes Mellitus, Hypertension, Neurologic Disorder Sister(s) Family Medical History: Cancer, COPD, Diabetes Mellitus, Hypertension Medications and Allergies Home Medications Medication Instructions Recorded Confirmed Type Allopurinol [Zyloprim] 100 mg PO DAILY 06/02/16 07/18/19 History Cyclobenzaprine [Flexeril] 10 mg PO HS PRN 06/02/16 07/18/19 History Furosemide [Lasix] 20 mg PO BID 06/02/16 07/18/19 History rOPINIRole HCL [Requip] 0.75 mg PO BID 06/02/16 07/18/19 History Gabapentin [Neurontin] 600 mg PO BID 10/26/16 07/18/19 History Hydrocodone/Acetaminophen [Lortab 1 - 2 tab PO Q6HR PRN 10/26/16 07/18/19 History 7.5-325 mg Tablet] Cetirizine HCl [Zyrtec] 10 mg PO DAILY 05/26/18 07/18/19 History Docusate [Colace] 100 mg PO BID 05/26/18 07/18/19 History Finasteride [Proscar] 5 mg PO DAILY 05/26/18 07/18/19 History Insulin Aspart [NovoLOG Flexpen] 15 units SQ AC-TID 05/26/18 07/18/19 History Metoprolol Tartrate [Lopressor] 25 mg PO BID 05/26/18 07/18/19 History Tamsulosin HCl [Flomax] 0.4 mg PO DAILY 05/26/18 07/18/19 History Isosorbide Mononitrate ER [Imdur] 30 mg PO DAILY #30 tab.er.24h 06/04/18 07/18/19 Rx Nitroglycerin Sl Tabs [Nitrostat] 0.4 mg SUBLINGUAL Q5M PRN #25 tab 06/04/18 07/18/19 Rx Albuterol Sulfate [Proair Hfa] 2 puff INHALATION RT-Q4H PRN 07/18/19 07/18/19 History Aspirin 81 mg PO DAILY 07/18/19 07/18/19 History Atorvastatin [Lipitor] 40 mg PO DAILY 07/18/19 07/18/19 History Carbidopa-Levodopa 25-100 mg 1 tab PO TID 07/18/19 07/18/19 History [Sinemet 25-100 mg] Clopidogrel [Plavix] 75 mg PO DAILY 07/18/19 07/18/19 History Ergocalciferol [Vitamin D2] 50,000 unit PO Q14D 07/18/19 07/18/19 History Insulin Aspart [NovoLOG Flexpen] See Protocol SQ AC-TID 07/18/19 07/18/19 History Insulin Glargine,Hum.rec.anlog 65 units SQ DAILY 07/18/19 07/18/19 History [Charlotte Ledesma] Allergies Allergy/AdvReac Type Severity Reaction Status Date / Time baclofen AdvReac Severe Nausea & Verified 07/18/19 22:28 Vomiting hydromorphone HCl AdvReac Nausea & Verified 07/18/19 22:28 [From Dilaudid] Vomiting morphine AdvReac Hallucinati Verified 07/18/19 22:28 ons vancomycin AdvReac Chills, Verified 07/18/19 22:28 Sweating, Did not feel well Physical Exam Vitals: Vital Signs Temp Pulse Pulse Resp BP BP Pulse Ox 07/19/19 05:21 97.8 F 62 18 154/76 93 L 07/19/19 04:44 97.8 F 62 18 154/76 93 L 07/19/19 03:12 68 20 117/74 93 L 07/19/19 00:33 64 18 136/73 96 07/18/19 23:48 64 18 136/73 96 07/18/19 22:50 67 18 129/77 94 L 07/18/19 21:36 97.9 F 60 17 122/70 96 Intake and Output 07/18/19 07/19/19 07/19/19 22:59 06:59 14:59 Intake Total 610 Balance 610 Intake: IV 10 Invasive Line 1 10 Amount of Fluid Infused ( 500 ml) Oral 100 Other: Weight 102.058 kg 103.2 kg Gen: This is an 84-year-old male. Patient is sitting up in bed and appears to be comfortable. He is eating a clear liquid diet and tolerating. HEENT: Head is atraumatic, normocephalic. Pupils equal, round. Sclerae is anicteric. NECK: Supple. No JVD. No lymphadenopathy. No thyromegaly. LUNGS: Clear to auscultation. No wheezes or rhonchi. No intercostal retractions. HEART: Regular rate and rhythm. No murmur. ABDOMEN: Soft. Bowel sounds are present. No masses. No tenderness. Positive Morales sign. EXTREMITIES: No pedal edema. No calf tenderness. Dorsalis pedis +2 bilaterally. NEUROLOGICAL: Patient is awake, alert and oriented x3. Cranial nerves 2 through 12 are grossly intact. Results CBC & Chem 7: 07/18/19 22:36 07/18/19 22:36 Labs: Abnormal Lab Results - Last 24 Hours (Table) 07/18/19 07/18/19 07/19/19 Range/Units 22:36 22:36 05:59 D-Dimer 1.32 H (<0.60) mg/L FEU Potassium 5.4 H (3.5-5.1) mmol/L Carbon Dioxide 20 L (22-30) mmol/L BUN 52 H (9-20) mg/dL Creatinine 2.20 H (0.66-1.25) mg/dL Glucose 137 H (74-99) mg/dL POC Glucose (mg/dL) 136 H (75-99) mg/dL ALT 11 L (21-72) U/L Alkaline Phosphatase 134 H (38-126) U/L Thrombosis Risk Factor Assmnt - DVT/VTE Prophylaxis DVT/VTE Prophylaxis: Pharmacologic Prophylaxis ordered - Choose All That Apply Any of the Below Risk Factors Present?: Yes Each Factor Represents 1 point: Obesity (BMI >25) Other Risk Factors: Yes Each Risk Factor Represents 3 Points: Age 75 years or older Other congenital or acquired thrombophilia - If yes, enter type in comment: No Thrombosis Risk Factor Assessment Total Risk Factor Score: 4 Thrombosis Risk Factor Assessment Level: Moderate Risk Assessment and Plan Plan: 1. Right upper quadrant abdominal pain. Patient is currently on clear liquid diet. HIDA scan ordered. Transfer patient to [facility] floor. 2. Hypertension. Continue Lopressor 5 mg twice daily. 3. Hyperlipidemia. Continue atorvastatin 40 mg daily. 4. History of coronary artery disease. Continue aspirin 81 mg daily, Plavix 75 mg daily, atorvastatin, Lopressor, Imdur 30 mg daily. 5. Diabetes mellitus type 2 insulin requiring. Continue Levemir at half dose 32 units daily, hold NovoLog scheduled. Continue NovoLog scale only while patient is on clear liquid diet. 6. Chronic kidney disease stage IV. Patient is at baseline. Avoid nephrotoxic agents. 7. Parkinson's disease. Continue Sinemet one 3 times daily. 8. History of kidney stones, stable. Urinalysis shows no hematuria. 9. DVT prophylaxis. Heparin subcu. 10. GI prophylaxis. Protonix. Patient will be admitted to the hospital for a minimum of 2 night stay. Discharge plan: home Impression and plan of care have been directed as dictated by the signing physician. Missy Douglas nurse practitioner acting as scribe for signing physician.
[2019-07-19 12:07] LABS: Glucose,Whole Blood 184 mg/dL (75-99)
[2019-07-19] MEDS: CARBIDOPA-LEVODOPA 25-100 MG 1 EACH TAB PO SCH ×2 (16:01→21:30)
[2019-07-19 16:46] LABS: Glucose,Whole Blood 250 mg/dL (75-99)
[2019-07-19 20:56] LABS: Glucose,Whole Blood 202 mg/dL (75-99)
[2019-07-19] MEDS: GABAPENTIN 300 MG CAP PO SCH (21:29)
[2019-07-19] MEDS: DOCUSATE 100 MG CAP PO SCH (21:30)
[2019-07-20 06:36] LABS: Albumin 3.9 g/dL (3.5-5.0); Calcium 8.8 mg/dL (8.4-10.2); Total Protein 6.6 g/dL (6.3-8.2)
[2019-07-20] MEDS: INSULIN DETEMIR (LEVEMIR) 100 UNIT/ML SYR SQ SCH (07:22)
[2019-07-20] MEDS: INSULIN ASPART (NovoLOG) 100 UNIT/ML VIAL SQ SCH ×4 (07:22→20:52)
[2019-07-20 07:33] LABS: Glucose,Whole Blood 91 mg/dL (75-99)
[2019-07-20] MEDS: ISOSORBIDE MONONITRATE ER 30 MG TAB.ER.24H PO SCH (08:32)
[2019-07-20] MEDS: GABAPENTIN 300 MG CAP PO SCH ×2 (08:32→20:52)
[2019-07-20] MEDS: ASPIRIN 81 MG PO SCH (08:32)
[2019-07-20] MEDS: FINASTERIDE 5 MG TAB PO SCH (08:32)
[2019-07-20] MEDS: DOCUSATE 100 MG CAP PO SCH ×2 (08:32→20:52)
[2019-07-20] MEDS: METOPROLOL TARTRATE 25 MG TAB PO SCH ×2 (08:32→20:52)
[2019-07-20] MEDS: CARBIDOPA-LEVODOPA 25-100 MG 1 EACH TAB PO SCH ×3 (08:33→20:52)
[2019-07-20] MEDS: TAMSULOSIN 0.4 MG CAP.ER.24H PO SCH (08:33)
[2019-07-20] MEDS: CLOPIDOGREL 75 MG TAB PO SCH (08:33)
[2019-07-20] MEDS: ATORVASTATIN 40 MG TAB PO SCH (08:33)
[2019-07-20] MEDS: ALLOPURINOL 100 MG TAB PO SCH (08:33)
[2019-07-20] MEDS: LORATADINE 10 MG TAB PO SCH (08:33)
[2019-07-20] MEDS ORDERED: SODIUM POLYSTYRENE SULFONATE 15 GM/60 ML BOTTLE PO STA (10:44)
[2019-07-20 12:22] LABS: Glucose,Whole Blood 210 mg/dL (75-99)
--- NOTE | 2019-07-20 12:38 | P.GSCN ---
<Madiha Hernandez - Last Filed: 07/20/19 12:36> History of Present Illness Consult date: 07/20/19 Reason for Consult: GB Requesting physician: Dejan Adkins History of present illness: CHIEF COMPLAINT: GB HISTORY OF PRESENT ILLNESS: General surgery consulted to evaluate patients abdominal pain for possible gallbladder etiology. Patient examined at the bedside. He reports abdominal pain that has been intermittent over the past month. He can not relate the pain to anything specific that makes it worse over that period of time. Denies intolerance to fatty or greasy food. He reports the pain is mostly in the right lower quadrant and radiates to his back. Denies right upper quadrant or epigastric discomfort. He has history of back pain but states this pain is not the same. Patient states he was hunting on Saturday. He reports eating chicken noodle soup before leaving for hunting. While hunting, he reports eating candy bars, popcorn, and drinking pop. He reports eating these types of foods multiple times in the past without abdominal discomfort. He states he saw a deer but when he attempted to lift his bow, the pain became so severe that he decided to come to the hospital. He denies nausea or vomiting at any time over the past 4 weeks. Denies fever or chills. He reports history of constipation since having back surgery. He usually takes Miralax daily. He reports recently he did not take his Miralax for three days and became constipated so he took laxatives and did have a large amount of liquid stool. He states after that he did not have a bowel movement for approximately 7 days. He reports his last bowel movement was on Saturday. He is passing flatus. Patient denies known history of any gallbladder disease or dysfunction. PAST MEDICAL HISTORY: See list. PAST SURGICAL HISTORY: See list. SOCIAL HISTORY: No illicit drug use. REVIEW OF SYSTEMS: CONSTITUTIONAL: Denies fever or chills. HEENT: Denies blurred vision, vision changes, or eye pain. Denies hemoptysis CARDIOVASCULAR: Denies chest pain or pressure. RESPIRATORY: No shortness of breath. GASTROINTESTINAL: Refer to HPI for pertinent findings HEMATOLOGIC: Denies bleeding disorders. GENITOURINARY: Denies any blood in urine. SKIN: Denies pruitis. Denies rash. PHYSICAL EXAM: VITAL SIGNS: Reviewed. GENERAL: Well-developed in no acute distress. HEENT: No sclera icterus. Extraocular movements grossly intact. Moist buccal mucosa. Head is atraumatic, normocephalic. ABDOMEN: Soft. Nondistended. No tenderness with palpation. No peritoneal signs. NEUROLOGIC: Alert and oriented. Cranial nerves II through XII grossly intact. LABORATORY DATA: WBC 8.1. Hemoglobin 13.7. Potassium 6.0. Lactic acid 1.5. Bilirubin 1.0. AST 20. ALT 13. Alkaline phosphatase 124. Lipase 129. IMAGING: CT abdomen pelvis: No acute abnormality within the abdomen or pelvis. Gallbladder appears normal. Some stool burden noted. ASSESSMENT: 1. Right lower quadrant abdominal pain with radiation to back x 1 month inte rmittently 2. History of constipation PLAN: 1. US gallbladder and HIDA scan ordered per medicine, await results 2. Patient takes Miralax at home daily. Patient to receive lactulose today for hyperkalemia. Resume Miralax tomorrow morning to prevent constipation. 3. Diet as tolerated 4. If surgical intervention recommended for GB, will be performed outpatient as patient takes aspirin and plavix. Received dose this morning. Plavix will need to be held 5-7 days prior to surgery. Nurse practitioner note has been reviewed by physician. Signing provider agrees with the documented findings, assessment, and plan of care. Past Medical History Past Medical History: Coronary Artery Disease (CAD), Cancer, Chest Pain / Angina, Heart Failure, Diabetes Mellitus, Hyperlipidemia, Hypertension, Osteoarthritis (OA) Additional Past Medical History / Comment(s): See Dr Ybarra's H&P. park inson's, gout, hx basal cell carcinoma on head, melanoma lt shoulder,shortness of breath, kidney stones History of Any Multi-Drug Resistant Organisms: None Reported, MRSA Year Discovered:: 2004 MDRO Source:: rt shoulder Past Surgical History: Back Surgery, Ear Surgery, Heart Catheterization, Orthope dic Surgery, Tonsillectomy Additional Past Surgical History / Comment(s): cody knee replacement, cody. carpal tunnel release, cody shoulder rotator cuff repair, back surgery x5, lt ear surgery x3 with replacement malleus,incus,stapes, wide excision melanoma left shoulder, I&D rt thumb,lithotripsy,cystoscopy with kidney stone retrieved,cody cataract, face and ear multiple lesion removal, oral surgery Past Anesthesia/Blood Transfusion Reactions: No Reported Reaction Additional Past Anesthesia/Blood Transfusion Reaction / Comm: hx vertigo Past Psychological History: No Psychological Hx Reported Smoking Status: Never smoker Past Alcohol Use History: None Reported Past Drug Use History: None Reported - Past Family History Mother Family Medical History: Diabetes Mellitus Father Family Medical History: Coronary Artery Disease (CAD), Hypertension Brother(s) Family Medical History: Coronary Artery Disease (CAD), Diabetes Mellitus, Hypertension, Neurologic Disorder Sister(s) Family Medical History: Cancer, COPD, Diabetes Mellitus, Hypertension Medications and Allergies Home Medications Medication Instructions Recorded Confirmed Type Allopurinol [Zyloprim] 100 mg PO DAILY 06/02/16 07/18/19 History Cyclobenzaprine [Flexeril] 10 mg PO HS PRN 06/02/16 07/18/19 History Furosemide [Lasix] 20 mg PO BID 06/02/16 07/18/19 History rOPINIRole HCL [Requip] 0.75 mg PO BID 06/02/16 07/18/19 History Gabapentin [Neurontin] 600 mg PO BID 10/26/16 07/18/19 History Hydrocodone/Acetaminophen [Lortab 1 - 2 tab PO Q6HR PRN 10/26/16 07/18/19 History 7.5-325 mg Tablet] Cetirizine HCl [Zyrtec] 10 mg PO DAILY 05/26/18 07/18/19 History Docusate [Colace] 100 mg PO BID 05/26/18 07/18/19 History Finasteride [Proscar] 5 mg PO DAILY 05/26/18 07/18/19 History Insulin Aspart [NovoLOG Flexpen] 15 units SQ AC-TID 05/26/18 07/18/19 History Metoprolol Tartrate [Lopressor] 25 mg PO BID 05/26/18 07/18/19 History Tamsulosin HCl [Flomax] 0.4 mg PO DAILY 05/26/18 07/18/19 History Isosorbide Mononitrate ER [Imdur] 30 mg PO DAILY #30 tab.er.24h 06/04/18 07/18/19 Rx Nitroglycerin Sl Tabs [Nitrostat] 0.4 mg SUBLINGUAL Q5M PRN #25 tab 06/04/18 07/18/19 Rx Albuterol Sulfate [Proair Hfa] 2 puff INHALATION RT-Q4H PRN 07/18/19 07/18/19 History Aspirin 81 mg PO DAILY 07/18/19 07/18/19 History Atorvastatin [Lipitor] 40 mg PO DAILY 07/18/19 07/18/19 History Carbidopa-Levodopa 25-100 mg 1 tab PO TID 07/18/19 07/18/19 History [Sinemet 25-100 mg] Clopidogrel [Plavix] 75 mg PO DAILY 07/18/19 07/18/19 History Ergocalciferol [Vitamin D2] 50,000 unit PO Q14D 07/18/19 07/18/19 History Insulin Aspart [NovoLOG Flexpen] See Protocol SQ AC-TID 07/18/19 07/18/19 History Insulin Glargine,Hum.rec.anlog 65 units SQ DAILY 07/18/19 07/18/19 History [Charlotte Ledesma] Allergies Allergy/AdvReac Type Severity Reaction Status Date / Time baclofen AdvReac Severe Nausea & Verified 07/18/19 22:28 Vomiting hydromorphone HCl AdvReac Nausea & Verified 07/18/19 22:28 [From Dilaudid] Vomiting morphine AdvReac Hallucinati Verified 07/18/19 22:28 ons vancomycin AdvReac Chills, Verified 07/18/19 22:28 Sweating, Did not feel well Surgical - Exam Vital Signs Temp Pulse Resp BP Pulse Ox 97.9 F 60 17 122/70 96 07/18/19 21:36 07/18/19 21:36 07/18/19 21:36 07/18/19 21:36 07/18/19 21:36 Results - Labs 07/18/19 22:36 07/20/19 05:57 Abnormal Lab Results - Last 24 Hours (Table) 07/19/19 07/19/19 07/20/19 Range/Units 16:44 20:55 05:57 Potassium 6.0 H (3.5-5.1) mmol/L BUN 48 H (9-20) mg/dL Creatinine 2.09 H (0.66-1.25) mg/dL POC Glucose (mg/dL) 250 H 202 H (75-99) mg/dL ALT 13 L (21-72) U/L Diabetes panel 07/20/19 Range/Units 05:57 Sodium 137 (137-145) mmol/L Potassium 6.0 H (3.5-5.1) mmol/L Chloride 104 (98-107) mmol/L Carbon Dioxide 24 (22-30) mmol/L BUN 48 H (9-20) mg/dL Creatinine 2.09 H (0.66-1.25) mg/dL Glucose 86 (74-99) mg/dL Calcium 8.8 (8.4-10.2) mg/dL AST 20 (17-59) U/L ALT 13 L (21-72) U/L Alkaline Phosphatase 124 (38-126) U/L Total Protein 6.6 (6.3-8.2) g/dL Albumin 3.9 (3.5-5.0) g/dL Calcium panel 07/20/19 Range/Units 05:57 Calcium 8.8 (8.4-10.2) mg/dL Albumin 3.9 (3.5-5.0) g/dL Pituitary panel 07/20/19 Range/Units 05:57 Sodium 137 (137-145) mmol/L Potassium 6.0 H (3.5-5.1) mmol/L Chloride 104 (98-107) mmol/L Carbon Dioxide 24 (22-30) mmol/L BUN 48 H (9-20) mg/dL Creatinine 2.09 H (0.66-1.25) mg/dL Glucose 86 (74-99) mg/dL Calcium 8.8 (8.4-10.2) mg/dL Adrenal panel 07/20/19 Range/Units 05:57 Sodium 137 (137-145) mmol/L Potassium 6.0 H (3.5-5.1) mmol/L Chloride 104 (98-107) mmol/L Carbon Dioxide 24 (22-30) mmol/L BUN 48 H (9-20) mg/dL Creatinine 2.09 H (0.66-1.25) mg/dL Glucose 86 (74-99) mg/dL Calcium 8.8 (8.4-10.2) mg/dL Total Bilirubin 1.0 (0.2-1.3) mg/dL AST 20 (17-59) U/L ALT 13 L (21-72) U/L Alkaline Phosphatase 124 (38-126) U/L Total Protein 6.6 (6.3-8.2) g/dL Albumin 3.9 (3.5-5.0) g/dL <IdamalihaFredy - Last Filed: 07/20/19 14:58> History of Present Illness History of present illness: As above. Patient with right upper quadrant pain that radiates to his back. No significant tenderness on examination. Patient states pain is aggravated by movement. Will review abdominal ultrasound. HIDA scan also ordered which will be reviewed. Will follow. Surgical - Exam Vital Signs Temp Pulse Resp BP Pulse Ox 97.9 F 60 17 122/70 96 07/18/19 21:36 07/18/19 21:36 07/18/19 21:36 07/18/19 21:36 07/18/19 21:36 Results - Labs 07/18/19 22:36 07/20/19 05:57 Abnormal Lab Results - Last 24 Hours (Table) 07/19/19 07/19/19 07/19/19 Range/Units 05:37 16:44 20:55 Potassium (3.5-5.1) mmol/L BUN (9-20) mg/dL Creatinine (0.66-1.25) mg/dL POC Glucose (mg/dL) 250 H 202 H (75-99) mg/dL Hemoglobin A1c 7.3 H (4.0-6.0) % ALT (21-72) U/L 07/20/19 07/20/19 Range/Units 05:57 12:21 Potassium 6.0 H (3.5-5.1) mmol/L BUN 48 H (9-20) mg/dL Creatinine 2.09 H (0.66-1.25) mg/dL POC Glucose (mg/dL) 210 H (75-99) mg/dL Hemoglobin A1c (4.0-6.0) % ALT 13 L (21-72) U/L Diabetes panel 07/19/19 07/20/19 Range/Units 05:37 05:57 Sodium 137 (137-145) mmol/L Potassium 6.0 H (3.5-5.1) mmol/L Chloride 104 (98-107) mmol/L Carbon Dioxide 24 (22-30) mmol/L BUN 48 H (9-20) mg/dL Creatinine 2.09 H (0.66-1.25) mg/dL Glucose 86 (74-99) mg/dL Hemoglobin A1c 7.3 H (4.0-6.0) % Calcium 8.8 (8.4-10.2) mg/dL AST 20 (17-59) U/L ALT 13 L (21-72) U/L Alkaline Phosphatase 124 (38-126) U/L Total Protein 6.6 (6.3-8.2) g/dL Albumin 3.9 (3.5-5.0) g/dL Calcium panel 07/20/19 Range/Units 05:57 Calcium 8.8 (8.4-10.2) mg/dL Albumin 3.9 (3.5-5.0) g/dL Pituitary panel 07/20/19 Range/Units 05:57 Sodium 137 (137-145) mmol/L Potassium 6.0 H (3.5-5.1) mmol/L Chloride 104 (98-107) mmol/L Carbon Dioxide 24 (22-30) mmol/L BUN 48 H (9-20) mg/dL Creatinine 2.09 H (0.66-1.25) mg/dL Glucose 86 (74-99) mg/dL Calcium 8.8 (8.4-10.2) mg/dL Adrenal panel 07/20/19 Range/Units 05:57 Sodium 137 (137-145) mmol/L Potassium 6.0 H (3.5-5.1) mmol/L Chloride 104 (98-107) mmol/L Carbon Dioxide 24 (22-30) mmol/L BUN 48 H (9-20) mg/dL Creatinine 2.09 H (0.66-1.25) mg/dL Glucose 86 (74-99) mg/dL Calcium 8.8 (8.4-10.2) mg/dL Total Bilirubin 1.0 (0.2-1.3) mg/dL AST 20 (17-59) U/L ALT 13 L (21-72) U/L Alkaline Phosphatase 124 (38-126) U/L Total Protein 6.6 (6.3-8.2) g/dL Albumin 3.9 (3.5-5.0) g/dL
[2019-07-20 12:44] LABS: Hemoglobin A1C 7.3 % (4.0-6.0)
--- NOTE | 2019-07-20 13:15 | US ---
EXAMINATION TYPE: US abdomen limited DATE OF EXAM: 07/20/2019 COMPARISON: CT 2019 CLINICAL HISTORY: RUQ pain, GB disease. Intermittent RUQ pain x couple months, exam done portable. EXAM MEASUREMENTS: Liver Length: 15.8 cm Gallbladder Wall: 0.2 cm CBD: 0.5 cm Right Kidney: 10.1 x 6.0 x 5.0 cm Pancreas: obscured by overlying midline bowel gas Liver: limited visualization, scanned intercostally, visualized portions appear wnl Gallbladder: low level echoes seen within dependant portion, no shadowing stones seen, wall measures wnl Evidence for sonographic Morales's sign: yes CBD: visualized portions wnl, limited by overlying bowel gas Right Kidney: 1.1cm cystic area inferior pole IMPRESSION: 1. Biliary sludge without sonographic evidence of acute cholecystitis. HIDA scan could evaluate for c hronic cholecystitis. 2. Simple appearing right renal cyst. 3. Limited visualization of the liver, common bile duct and obscuration of the pancreas by overlying bowel gas.
--- NOTE | 2019-07-20 14:56 | P.PN ---
Subjective Progress Note Date: 07/20/19 This is an 84-year-old male patient of Dr. 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 Originally the plan was to place a stent in the OM branch and the circumflex. 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 Patient was recommended for medical management. Patient gives history that he has had abdominal pain the right upper quadrant and right back pain for greater than 1 month that waxes and wanes but became much worse yesterday. Pain is on the right side under his rib cage. He denies any fall or injury to the area. He does not think he has any change of the pain with food intake. He denies any nausea or vomiting. He states he feels a little bloated. He feels like there is a knot inside. He denies any change in his urine. He does have a slow urinary stream but this is normal for him and he is status post 6 back surgeries. He also gives history of having diarrhea 1 week ago after taking stool softeners and then for 7 days did not have a bowel movement. He is now having small bowel movements 3 times daily. Patient came into [facility] emergency center for evaluation. He was afebrile, vital signs stable, CBC unremarkable. BUN 52 and creatinine 2.20 which seems to be his baseline, blood sugar 137, potassium 5.4, CO2 20. CAT scan of the abdomen and pelvis with contrast showed no acute abnormalities. A d-dimer was done that showed 1.3 and patient underwent a VQ scan that showed low probability. Patient was admitted to the cardiac stepdown unit. HIDA scan ordered. 07/20: HIDA scan has been delayed until tomorrow. Patient states that he is feeling much improved today. His abdominal pain is lessened. He is tolerating clear liquid diet without nausea or vomiting. Abdominal ultrasound revealed biliary sludge without evidence of acute cholecystitis. HIDA scan could evaluate for chronic cholecystitis. Simple appearing right renal cyst. Limited visualization of the liver, bile duct and obscuration of the pancreas by overly ing bowel gas. Repeat lab work revealed potassium 6, BUN 14 creatinine 2.09. Kayexalate ordered and repeat potassium today at 4 PM and again repeat lab work in the morning. Consult added for Dr. Yang. Review of Systems Constitutional: Denies anorexia, Denies chills, Denies fatigue, Denies fever, Denies lethargy, Denies poor appetite, Denies weakness Eyes: denies blurred vision, denies pain Ears, nose, mouth and throat: Denies dysphagia, Denies headache, Denies nasal congestion, Denies nasal discharge, Denies sore throat, Denies vertigo Cardiovascular: Denies chest pain, Denies dyspnea on exertion, Denies edema, Denies shortness of breath, Denies syncope Respiratory: Denies congestion, Denies cough, Denies cough with sputum, Denies dyspnea, Denies excessive sputum, Denies hemoptysis, Denies home oxygen, Denies wheezing Gastrointestinal: Reports abdominal pain-improved, Denies constipation, Denies diarrhea, Denies loss of appetite, Denies nausea, Denies vomiting Genitourinary: Reports flank pain, Reports urinary hesitancy, Denies dysuria, Denies urinary frequency, Denies urinary retention Musculoskeletal: Denies frequent falls, Denies gait dysfunction, Denies muscle weakness, Denies myalgias Integumentary: Denies pruritus, Denies rash, Denies wounds Neurological: Denies change in mentation, Denies change in speech, Denies gait dysfunction, Denies numbness, Denies weakness Psychiatric: Denies anxiety, Denies depression Endocrine: Denies fatigue, Denies weight change Objective - Vital Signs Vital signs: Vital Signs Temp 98.3 F 07/20/19 11:19 Pulse 61 07/20/19 11:19 Resp 18 07/20/19 11:19 BP 111/64 07/20/19 11:19 Pulse Ox 94 L 07/20/19 11:19 Intake & Output 07/19/19 07/20/19 07/20/19 18:59 06:59 18:59 Intake Total 740 480 Output Total 500 Balance 240 480 Weight 103.4 kg Intake: IV 20 Invasive Line 1 20 Oral 720 480 Output: Urine 500 Other: Voiding Method Toilet Toilet Urinal - Exam Gen: This is an 84-year-old male. Patient is sitting up in chair and appears to be comfortable. HEENT: Head is atraumatic, normocephalic. Pupils equal, round. Sclerae is anicteric. NECK: Supple. No JVD. No lymphadenopathy. No thyromegaly. LUNGS: Clear to auscultation. No wheezes or rhonchi. No intercostal retractions. HEART: Regular rate and rhythm. No murmur. ABDOMEN: Soft. Bowel sounds are present. No masses. No tenderness. Positive Morales sign. EXTREMITIES: No pedal edema. No calf tenderness. Dorsalis pedis +2 bilaterally. NEUROLOGICAL: Patient is awake, alert and oriented x3. Cranial nerves 2 through 12 are grossly intact. - Labs CBC & Chem 7: 07/18/19 22:36 07/20/19 05:57 Labs: Abnormal Lab Results - Last 24 Hours (Table) 07/19/19 07/19/19 07/19/19 Range/Units 12:02 16:44 20:55 Potassium (3.5-5.1) mmol/L BUN (9-20) mg/dL Creatinine (0.66-1.25) mg/dL POC Glucose (mg/dL) 184 H 250 H 202 H (75-99) mg/dL ALT (21-72) U/L 07/20/19 Range/Units 05:57 Potassium 6.0 H (3.5-5.1) mmol/L BUN 48 H (9-20) mg/dL Creatinine 2.09 H (0.66-1.25) mg/dL POC Glucose (mg/dL) (75-99) mg/dL ALT 13 L (21-72) U/L Assessment and Plan Plan: 1. Right upper quadrant abdominal pain. Patient is currently on clear liquid diet. HIDA scan ordered for tomorrow. Consult with Dr. Yang. Transfer patient to [facility] floor. 2. Hypertension. Continue Lopressor 5 mg twice daily. 3. Hyperlipidemia. Continue atorvastatin 40 mg daily. 4. History of coronary artery disease. Continue aspirin 81 mg daily, Plavix 75 mg daily, atorvastatin, Lopressor, Imdur 30 mg daily. 5. Diabetes mellitus type 2 insulin requiring. Continue Levemir at half dose 32 units daily, hold NovoLog scheduled. Continue NovoLog scale only while patient is on clear liquid diet. 6. Chronic kidney disease stage IV. Patient is at baseline. Avoid nephrotoxic agents. 7. Parkinson's disease. Continue Sinemet one 3 times daily. 8. History of kidney stones, stable. Urinalysis shows no hematuria. 9. DVT prophylaxis. Heparin subcu. 10. GI prophylaxis. Protonix. Discharge plan: home Impression and plan of care have been directed as dictated by the signing physician. Missy Douglas nurse practitioner acting as scribe for signing physician.
[2019-07-20 17:20] LABS: Glucose,Whole Blood 101 mg/dL (75-99)
[2019-07-20] MEDS: HYDROmorphone 0.5 MG/0.5 ML SYRINGE IVP PRN (17:22)
[2019-07-20 20:28] LABS: Glucose,Whole Blood 186 mg/dL (75-99)
[2019-07-21 04:48] VITALS: RESP 18
[2019-07-21 05:44] VITALS: BP 117/64; PULSE 65; TEMP 97.9
[2019-07-21 07:05] LABS: Glucose,Whole Blood 114 mg/dL (75-99)
[2019-07-21] MEDS: INSULIN ASPART (NovoLOG) 100 UNIT/ML VIAL SQ SCH ×2 (07:14→12:50)
[2019-07-21] MEDS ORDERED: POLYETHYLENE GLYCOL 3350 17 GM POWD.PACK PO SCH (09:00)
[2019-07-21 10:47] LABS: Glucose,Whole Blood 124 mg/dL (75-99)
[2019-07-21] MEDS: INSULIN DETEMIR (LEVEMIR) 100 UNIT/ML SYR SQ SCH (10:47)
[2019-07-21] MEDS: FINASTERIDE 5 MG TAB PO SCH (10:48)
[2019-07-21] MEDS: ATORVASTATIN 40 MG TAB PO SCH (10:48)
[2019-07-21] MEDS: ALLOPURINOL 100 MG TAB PO SCH (10:48)
[2019-07-21] MEDS: CARBIDOPA-LEVODOPA 25-100 MG 1 EACH TAB PO SCH (10:48)
[2019-07-21] MEDS: CLOPIDOGREL 75 MG TAB PO SCH (10:48)
[2019-07-21] MEDS: METOPROLOL TARTRATE 25 MG TAB PO SCH (10:48)
[2019-07-21] MEDS: LORATADINE 10 MG TAB PO SCH (10:48)
[2019-07-21] MEDS: DOCUSATE 100 MG CAP PO SCH (10:49)
[2019-07-21] MEDS: ASPIRIN 81 MG PO SCH (10:49)
[2019-07-21] MEDS: ISOSORBIDE MONONITRATE ER 30 MG TAB.ER.24H PO SCH (10:49)
[2019-07-21] MEDS: TAMSULOSIN 0.4 MG CAP.ER.24H PO SCH (10:49)
[2019-07-21] MEDS: GABAPENTIN 300 MG CAP PO SCH (10:49)
--- NOTE | 2019-07-21 10:56 | NM ---
EXAMINATION TYPE: NM hepatobiliary w CCK DATE OF EXAM: 07/21/2019 COMPARISON: Abdominal ultrasound dated 07/20/2019 HISTORY: Right upper quadrant pain for TECHNIQUE: After the intravenous administration of 4.3 mCi Tc 99m Mebrofenin hepatobiliary scintigrap hy is performed. Immediate images post injection. FINDINGS: There is satisfactory initial accumulation of tracer by the liver. The gallbladder is visualized wit hin 26th minutes. The small bowel activity is noted within 36 minutes. At one hour CCK was administ ered, patient was injected with 2.1 mcg of Kinevac, and gallbladder ejection fraction is calculated a t 21 %, abnormally low. Therefore there is no scintigraphic evidence of cystic or common bile duct o bstruction to suggest acute cholecystitis or gallbladder dyskinesia. IMPRESSION: 1. Biliary dyskinesia. Abnormally low ejection fraction of 21%. 2. No scintigraphic evidence of acute or chronic cholecystitis.
[2019-07-21 11:27] LABS: Albumin 4.1 g/dL (3.5-5.0); Calcium 9.1 mg/dL (8.4-10.2); Total Bilirubin 1.1 mg/dL (0.2-1.3); Total Protein 7.2 g/dL (6.3-8.2)
--- NOTE | 2019-07-21 11:56 | P.PN ---
<Madiha Hernandez - Last Filed: 07/21/19 11:52> Subjective Progress Note Date: 07/21/19 CHIEF COMPLAINT: GB HISTORY OF PRESENT ILLNESS: Patient examined this morning at the bedside. He reports his back is sore from laying on the hard exam table during his HIDA scan this morning. He reports some abdominal soreness but states it is greatly improved since yesterday. He is tolerating diet. Denies nausea or vomiting. Abdominal ultrasound completed revealed biliary sludge. HIDA scan reveals ejection fraction of 21%. PHYSICAL EXAM: VITAL SIGNS: Reviewed. GENERAL: Well-developed in no acute distress. HEENT: No sclera icterus. Extraocular movements grossly intact. Moist buccal mucosa. Head is atraumatic, normocephalic. ABDOMEN: Soft. Nondistended. No tenderness with palpation. No peritoneal signs. NEUROLOGIC: Alert and oriented. Cranial nerves II through XII grossly intact. ASSESSMENT: 1. Right lower/upper quadrant abdominal pain with radiation to back x 1 month intermittently, US reveals GB sludge, HIDA scans reveals biliary dyskinesia with ejection fraction of 21% 2. History of constipation PLAN: 1. Continue diet as tolerated. Patient encouraged to follow low fat diet at discharge 2. Continue Miralax daily for constipation 3. Patient may be discharged home today from a surgical standpoint. He is to follow up with Dr. Yang outpatient. Nurse practitioner note has been reviewed by physician. Signing provider agrees with the documented findings, assessment, and plan of care. Objective - Vital Signs Vital signs: Vital Signs Temp 97.9 F 07/21/19 05:10 Pulse 65 07/21/19 05:10 Resp 18 07/21/19 05:10 BP 117/64 07/21/19 05:10 Pulse Ox 95 07/21/19 04:00 Intake & Output 07/20/19 07/21/19 07/21/19 18:59 06:59 18:59 Intake Total 780 240 Balance 780 240 Weight 101.3 kg Intake: Oral 780 240 Other: Voiding Method Toilet Urinal # Voids 1 2 - Labs CBC & Chem 7: 07/18/19 22:36 07/21/19 10:47 Labs: Abnormal Lab Results - Last 24 Hours (Table) 07/19/19 07/20/19 07/20/19 Range/Units 05:37 12:21 17:18 BUN (9-20) mg/dL Creatinine (0.66-1.25) mg/dL Glucose (74-99) mg/dL POC Glucose (mg/dL) 210 H 101 H (75-99) mg/dL Hemoglobin A1c 7.3 H (4.0-6.0) % ALT (21-72) U/L Alkaline Phosphatase (38-126) U/L 07/20/19 07/21/19 07/21/19 Range/Units 20:27 07:00 10:45 BUN (9-20) mg/dL Creatinine (0.66-1.25) mg/dL Glucose (74-99) mg/dL POC Glucose (mg/dL) 186 H 114 H 124 H (75-99) mg/dL Hemoglobin A1c (4.0-6.0) % ALT (21-72) U/L Alkaline Phosphatase (38-126) U/L 07/21/19 Range/Units 10:47 BUN 38 H (9-20) mg/dL Creatinine 1.94 H (0.66-1.25) mg/dL Glucose 129 H (74-99) mg/dL POC Glucose (mg/dL) (75-99) mg/dL Hemoglobin A1c (4.0-6.0) % ALT 17 L (21-72) U/L Alkaline Phosphatase 154 H (38-126) U/L <Fredy Yang - Last Filed: 07/21/19 17:08> Subjective As above. Patient discharge prior to my arrival today. Will follow-up in the office. Objective - Vital Signs Vital signs: Vital Signs Temp 97.9 F 07/21/19 05:10 Pulse 65 07/21/19 05:10 Resp 18 07/21/19 05:10 BP 117/64 07/21/19 05:10 Pulse Ox 95 07/21/19 04:00 Intake & Output 07/20/19 07/21/19 07/21/19 18:59 06:59 18:59 Intake Total 780 240 Balance 780 240 Weight 101.3 kg Intake: Oral 780 240 Other: Voiding Method Toilet Urinal # Voids 1 2 4 - Labs CBC & Chem 7: 07/18/19 22:36 07/21/19 10:47 Labs: Abnormal Lab Results - Last 24 Hours (Table) 1007/20/19 07/21/19 Range/Units 17:18 20:27 07:00 BUN (9-20) mg/dL Creatinine (0.66-1.25) mg/dL Glucose (74-99) mg/dL POC Glucose (mg/dL) 101 H 186 H 114 H (75-99) mg/dL ALT (21-72) U/L Alkaline Phosphatase (38-126) U/L 07/21/19 07/21/19 07/21/19 Range/Units 10:45 10:47 12:18 BUN 38 H (9-20) mg/dL Creatinine 1.94 H (0.66-1.25) mg/dL Glucose 129 H (74-99) mg/dL POC Glucose (mg/dL) 124 H 190 H (75-99) mg/dL ALT 17 L (21-72) U/L Alkaline Phosphatase 154 H (38-126) U/L
--- NOTE | 2019-07-21 12:01 | P.DS ---
Providers Date of admission: 07/19/19 03:59 Expected date of discharge: 07/21/19 Attending physician: Paula Gaitan Consults: 07/20/19 10:42 Consult Physician Routine Consulting Provider: Fredy Yang Consult Reason/Comments: GB Do you want consulting provider notified?: Yes Primary care physician: [employer] [facility] Course: This is an 84-year-old male patient of Dr. 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 Originally the plan was to place a stent in the OM branch and the circumflex. 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 Patient was recommended for medical management. Patient gives history that he has had abdominal pain the right upper quadrant and right back pain for greater than 1 month that waxes and wanes but became much worse yesterday. Pain is on the right side under his rib cage. He denies any fall or injury to the area. He does not think he has any change of the pain with food intake. He denies any nausea or vomiting. He states he feels a little bloated. He feels like there is a knot inside. He denies any change in his urine. He does have a slow urinary stream but this is normal for him and he is status post 6 back surgeries. He also gives history of having diarrhea 1 week ago after taking stool softeners and then for 7 days did not have a bowel movement. He is now having small bowel movements 3 times daily. Patient came into [facility] emergency center for evaluation. He was afebrile, vital signs stable, CBC unremarkable. BUN 52 and creatinine 2.20 which seems to be his baseline, blood sugar 137, potassium 5.4, CO2 20. CAT scan of the abdomen and pelvis with contrast showed no acute abnormalities. A d-dimer was done that showed 1.3 and patient underwent a VQ scan that showed low probability. Patient was admitted to the cardiac stepdown unit. HIDA scan ordered. 07/20: HIDA scan has been delayed until tomorrow. Patient states that he is feeling much improved today. His abdominal pain is lessened. He is tolerating clear liquid diet without nausea or vomiting. Abdominal ultrasound revealed biliary sludge without evidence of acute cholecystitis. HIDA scan could evaluate for chronic cholecystitis. Simple appearing right renal cyst. Limited visualization of the liver, bile duct and obscuration of the pancreas by overlying bowel gas. Repeat lab work revealed potassium 6, BUN 14 creatinine 2.09. Kayexalate ordered and repeat potassium today at 4 PM and again repeat lab work in the morning. Consult added for Dr. Yang. 07/21: Repeat lab work reveals BUN of 38, creatinine 1.94 and potassium of 5.0. Blood sugars running between 114 and 129. Alkaline phosphatase 154, ALT 17, AST 21. Patient underwent HIDA scan this morning which revealed biliary dyskinesia with low ejection fraction of 21%. No evidence of acute or chronic cholecystitis. The patient will be discharged home today in stable condition with plan to follow-up with Dr. Yang and Dr. Adkins. Discharge diagnoses: 1. Right upper quadrant abdominal pain secondary to biliary dyskinesia. 2. Hypertension. 3. Hyperlipidemia. 4. History of coronary artery disease. 5. Diabetes mellitus type 2 insulin requiring. 6. Chronic kidney disease stage IV. 7. Parkinson's disease. 8. History of kidney stones, stable. Discharge plan: home Impression and plan of care have been directed as dictated by the signing physician. Missy Douglas nurse practitioner acting as scribe for signing physician. Patient Condition at Discharge: Good Plan - Discharge Summary Discharge Rx Participant: No New Discharge Prescriptions: New Polyethylene Glycol 3350 [Miralax] 17 gm PO DAILY #0 powd.pack Continue rOPINIRole HCL [Requip] 0.75 mg PO BID Cyclobenzaprine [Flexeril] 10 mg PO HS PRN PRN Reason: Muscle Spasm Allopurinol [Zyloprim] 100 mg PO DAILY Furosemide [Lasix] 20 mg PO BID Gabapentin [Neurontin] 600 mg PO BID Hydrocodone/Acetaminophen [Lortab 7.5-325 mg Tablet] 1 - 2 tab PO Q6HR PRN PRN Reason: Pain Cetirizine HCl [Zyrtec] 10 mg PO DAILY Tamsulosin HCl [Flomax] 0.4 mg PO DAILY Insulin Aspart [NovoLOG Flexpen] 15 units SQ AC-TID Metoprolol Tartrate [Lopressor] 25 mg PO BID Finasteride [Proscar] 5 mg PO DAILY Docusate [Colace] 100 mg PO BID Isosorbide Mononitrate ER [Imdur] 30 mg PO DAILY #30 tab.er.24h Nitroglycerin Sl Tabs [Nitrostat] 0.4 mg SUBLINGUAL Q5M PRN #25 tab PRN Reason: Chest Pain Ergocalciferol [Vitamin D2 (DRISDOL)] 50,000 unit PO Q14D Aspirin 81 mg PO DAILY Insulin Aspart [NovoLOG Flexpen] See Protocol SQ AC-TID Clopidogrel [Plavix] 75 mg PO DAILY Albuterol Sulfate [Proair Hfa] 2 puff INHALATION RT-Q4H PRN PRN Reason: Shortness Of Breath Insulin Glargine,Hum.rec.anlog [Toujeo Solostar] 65 units SQ DAILY Atorvastatin [Lipitor] 40 mg PO DAILY Carbidopa-Levodopa 25-100 mg [Sinemet 25-100 mg] 1 tab PO TID Discharge Medication List Allopurinol [Zyloprim] 100 mg PO DAILY 06/02/16 [History] Cyclobenzaprine [Flexeril] 10 mg PO HS PRN 06/02/16 [History] Furosemide [Lasix] 20 mg PO BID 06/02/16 [History] rOPINIRole HCL [Requip] 0.75 mg PO BID 06/02/16 [History] Gabapentin [Neurontin] 600 mg PO BID 10/26/16 [History] Hydrocodone/Acetaminophen [Lortab 7.5-325 mg Tablet] 1 - 2 tab PO Q6HR PRN 10/26/16 [History] Cetirizine HCl [Zyrtec] 10 mg PO DAILY 05/26/18 [History] Docusate [Colace] 100 mg PO BID 05/26/18 [History] Finasteride [Proscar] 5 mg PO DAILY 05/26/18 [History] Insulin Aspart [NovoLOG Flexpen] 15 units SQ AC-TID 05/26/18 [History] Metoprolol Tartrate [Lopressor] 25 mg PO BID 05/26/18 [History] Tamsulosin HCl [Flomax] 0.4 mg PO DAILY 05/26/18 [History] Isosorbide Mononitrate ER [Imdur] 30 mg PO DAILY #30 tab.er.24h 06/04/18 [Rx] Nitroglycerin Sl Tabs [Nitrostat] 0.4 mg SUBLINGUAL Q5M PRN #25 tab 06/04/18 [Rx] Albuterol Sulfate [Proair Hfa] 2 puff INHALATION RT-Q4H PRN 07/18/19 [History] Aspirin 81 mg PO DAILY 07/18/19 [History] Atorvastatin [Lipitor] 40 mg PO DAILY 07/18/19 [History] Carbidopa-Levodopa 25-100 mg [Sinemet 25-100 mg] 1 tab PO TID 07/18/19 [History] Clopidogrel [Plavix] 75 mg PO DAILY 07/18/19 [History] Ergocalciferol [Vitamin D2 (DRISDOL)] 50,000 unit PO Q14D 07/18/19 [History] Insulin Aspart [NovoLOG Flexpen] See Protocol SQ AC-TID 07/18/19 [History] Insulin Glargine,Hum.rec.anlog [Toujeo Solostar] 65 units SQ DAILY 07/18/19 [History] Polyethylene Glycol 3350 [Miralax] 17 gm PO DAILY #0 powd.pack 07/21/19 [Rx] Follow up Appointment(s)/Referral(s): Fredy Yang MD [Medical Doctor] - 1 Week Dejan Adkins MD [Primary Care Provider] - 1 Week Patient Instructions/Handouts: HIDA Scan (DC) Activity/Diet/Wound Care/Special Instructions: Low fat diet. Discharge Disposition: HOME SELF-CARE
[2019-07-21 12:20] LABS: Glucose,Whole Blood 190 mg/dL (75-99)
--- NOTE | 2019-07-27 11:41 | CDI ---
Documentation Clarification Form Date: 07/27/19 From: Consuelo Kilgore Phone: If you have a question regarding this query, please contact Yulissa Bangura at [phone] between 8am and 5pm. Admit Date: 07/19/2019 3:59:00 AM Patient Name: Asher Wright Visit Number: [id number] Discharge Date: 07/21/2019 1:52:00 PM ATTENTION: The Clinical Documentation Specialists (CDI) and [facility] Coding Staff appreciate your assistance in clarifying documentation. Please respond to the clarification below the line at the bottom and electronically sign. The CDI & [facility] Coding staff will review the response and follow-up if needed. Please note: Queries are made part of the Legal Health Record. If you have any questions, please contact the author of this message via ITS. Dr. Dejan Adkins CHF is documented in the past medical history in the ED note, H&P and Consult note. History/Risk Factors: Hypertension, CAD Clinical Indicators: Chest pain VS/Pulse OX: T. 97.9, P. 60, R. 17, BP 122/70, Pulse Ox. 96% on room air BNP: Not tested Chest X Ray: Not done Treatment: PO Lasix 20 mg BID at home In your professional opinion, can you please clarify the acuity and type of CHF if known? Systolic Heart Failure: Diastolic Heart Failure: Systolic & Diastolic Heart Failure: Unable to Determine Other, please specify no heart failure MTDD
== END 2019-07-21 13:52 | disposition home or self-care (01) | DRG 445 ==
LOC: EC 21:35 → 3SCARD 07-19 03:59 → 4MS4W 07-21 05:19
PROVIDERS: ADMIT Internal Medicine; ATTEND Internal Medicine
DX: K82.8 Other specified diseases of gallbladder (principal); N18.4 Chronic kidney disease, stage 4 (severe); E11.22 Type 2 diabetes mellitus with diabetic chronic kidney disease; G20 Parkinson's disease; E87.5 Hyperkalemia; N28.1 Cyst of kidney, acquired; I12.9 Hypertensive chronic kidney disease with stage 1 through stage 4 chronic kidney disease, or unspecified chronic kidney disease; K59.00 Constipation, unspecified; E78.5 Hyperlipidemia, unspecified; I25.10 Atherosclerotic heart disease of native coronary artery without angina pectoris; M10.9 Gout, unspecified; M19.90 Unspecified osteoarthritis, unspecified site; K81.1 Chronic cholecystitis; Z79.02 Long term (current) use of antithrombotics/antiplatelets; Z79.4 Long term (current) use of insulin; Z79.82 Long term (current) use of aspirin; Z79.899 Other long term (current) drug therapy; Z96.653 Presence of artificial knee joint, bilateral; Z87.442 Personal history of urinary calculi; Z85.820 Personal history of malignant melanoma of skin; Z85.828 Personal history of other malignant neoplasm of skin; Z88.1 Allergy status to other antibiotic agents; Z88.5 Allergy status to narcotic agent; Z88.8 Allergy status to other drugs, medicaments and biological substances; Z91.048 Other nonmedicinal substance allergy status; Z98.42 Cataract extraction status, left eye; Z98.41 Cataract extraction status, right eye; Z96.1 Presence of intraocular lens; Z98.61 Coronary angioplasty status; Z86.14 Personal history of Methicillin resistant Staphylococcus aureus infection; Z82.49 Family history of ischemic heart disease and other diseases of the circulatory system; Z82.5 Family history of asthma and other chronic lower respiratory diseases; Z83.3 Family history of diabetes mellitus
CPT/HCPCS: 36415; 51701; 74176; 76705; 78227; 78582; 80053; 81003; 82150; 83036; 83605; 83690; 84132; 85025; 85379; 85610; 85730; 93005; 96361; 96372; 96374; 96375; 99285

== ENCOUNTER 2019-08-10 10:48 | Day surgery (SDC) | payer MEDICARE ==
[2019-08-06 09:05] VITALS: BMI 30.5
[~2019-08-10 10:48] MED LIST changes: -ALPRAZolam 0.25 MG TAB PO PRN; -ASPIRIN 325 MG TAB PO ONE; +DEXAMETHASONE SOD PHOSPHATE 10 MG/ML 1 ML VIAL IV ONE; +HEPARIN SODIUM,PORCINE 5,000 UNIT/ML 1 ML VIAL SQ ONE; +LACTATED RINGERS 1,000 ML IV SCH; +MIDAZOLAM 2 MG/2 ML VIAL IV PRN; +ONDANSETRON 4 MG/2 ML VIAL IVP ONE; -SODIUM CHLORIDE 0.9% 1,000 ML in EMPTY BAG 1 BAG IV ONE; +fentaNYL (PF) 50 MCG/ML 2 ML AMP IV PRN
[2019-08-10] MEDS ORDERED: LIDOCAINE 1% 20 ML VIAL (10MG/ML) FOR IV START INTRADERMA ONE (11:30)
[2019-08-10 11:33] LABS: Glucose,Whole Blood 93 mg/dL (75-99)
[2019-08-10] MEDS ORDERED: BUPIVACAINE (PF) 0.25% 30 ML VIAL SQ ONE ×2 (12:07→13:40)
[2019-08-10] MEDS ORDERED: SUCCINYLCHOLINE CHLORIDE 100 MG/5 ML SYR IV ONE (13:07)
[2019-08-10] MEDS ORDERED: NEOSTIGMINE 1 MG/ML 10 ML VIAL ONE (13:07)
[2019-08-10] MEDS ORDERED: ROCURONIUM BROMIDE 10 MG/ML 10 ML VIAL IV ONE (13:07)
[2019-08-10] MEDS ORDERED: LIDOCAINE 1% INJ 10MG/ML (20 ML MDV) ONE (13:07)
[2019-08-10] MEDS ORDERED: GLYCOPYRROLATE 0.2 MG/ML 2 ML VIAL ONE (13:07)
[2019-08-10] MEDS ORDERED: PROPOFOL 10 MG/ML 20 ML VIAL IV ONE (13:07)
[2019-08-10] MEDS ORDERED: fentaNYL (PF) 50 MCG/ML 2 ML AMP ONE (13:07)
[2019-08-10] MEDS ORDERED: LACTATED RINGERS 1,000 ML IV ONE ×2 (13:46)
[2019-08-10 14:34] VITALS: TEMP 97.2
[2019-08-10 14:58] LABS: Glucose,Whole Blood 134 mg/dL (75-99)
[2019-08-10] MEDS ORDERED: NALOXONE 0.4 MG/ML 1 ML VIAL IV PRN (14:59)
[2019-08-10] MEDS ORDERED: HYDROcodone/APAP 5-325MG 1 EACH TAB PO PRN (14:59)
--- NOTE | 2019-08-10 15:03 | P.OP ---
Date of Procedure: 08/10/19 Procedure(s) Performed: PREOPERATIVE DIAGNOSIS: Chronic cholecystitis POSTOPERATIVE DIAGNOSIS: Same PROCEDURE: Laparoscopic cholecystectomy SURGEON: Trey EBL: Minimal see anesthesia record ANESTHESIA: Gen. COMPLICATIONS: None OPERATIVE PROCEDURE: The patient was brought and placed on the operating room table in the supine position. The patient was placed under general anesthesia at that time. The abdomen was prepped and draped in the usual sterile fashion. A small vertical infraumbilical incision was made. The fascia was grasped with the Tereso forceps. The fascia was retracted anteriorly. The Veress needle was advanced into the peritoneal cavity. The saline drop test was normal. Insufflation took place up to 15 mmHg. A 5 mm optical trocar was advanced and the peritoneal cavity. 2 additional 5 mm trochars were placed in the right upper quadrant under direct visualization. A 12 mm trocar was advanced into the epigastric incision site. The gallbladder was retracted superiorly and laterally. The peritoneum overlying the infundibulum was bluntly dissected. The patient's cystic duct was visualized. The junction between the cystic duct common and hepatic duct was identified. The cystic duct was then divided after placement of 3 12 mm clips on the patient's side and one on the specimen side. The cystic artery had multiple small branches entering the posterior wall the gallbladder. These were clipped using the 12 mm clipper. The gallbladder was then removed from the liver bed using electrocautery. The gallbladder was then removed from the epigastric trocar site with an Endo Catch bag. The gallbladder fossa was irrigated with saline. There was no evidence of any bleeding or biliary drainage seen. The fascia at the 12 millimeter site was closed using a Jass-Sukumar 0 Vicryl stitch. The trochars were then removed. The skin at all 4 sites was closed using a 4-0 Monocryl stitch. Skin glue was utilized on the incision sites. At the end of this procedure the sponge and needle counts were correct. DISPOSITION: Stable to the recovery room
[2019-08-10 15:38] VITALS: RESP 16
[2019-08-10 16:45] VITALS: BP 130/78; PULSE 57
== END 2019-08-10 16:51 | disposition home or self-care (01) ==
LOC: OR 10:48
PROVIDERS: ATTEND Surgery
DX: K80.10 Calculus of gallbladder with chronic cholecystitis without obstruction (principal); I25.119 Atherosclerotic heart disease of native coronary artery with unspecified angina pectoris; I11.0 Hypertensive heart disease with heart failure; I50.9 Heart failure, unspecified; E11.9 Type 2 diabetes mellitus without complications; E78.5 Hyperlipidemia, unspecified; M19.90 Unspecified osteoarthritis, unspecified site; G20 Parkinson's disease; M10.9 Gout, unspecified; J44.9 Chronic obstructive pulmonary disease, unspecified; Z79.02 Long term (current) use of antithrombotics/antiplatelets; Z79.82 Long term (current) use of aspirin; Z79.4 Long term (current) use of insulin; Z79.891 Long term (current) use of opiate analgesic; Z79.899 Other long term (current) drug therapy; Z88.1 Allergy status to other antibiotic agents; Z88.5 Allergy status to narcotic agent; Z88.8 Allergy status to other drugs, medicaments and biological substances
CPT/HCPCS: 88304; 47562; J1644; J1100; J2710; J0690; J2405; J2001; J3010; J0330; J2704

== ENCOUNTER → 2019-09-22 | Outpatient (CLI) | payer MEDICARE ==
--- NOTE | 2019-09-23 12:50 | US ---
EXAMINATION TYPE: US kidneys/renal and bladder DATE OF EXAM: 09/22/2019 COMPARISON: NONE CLINICAL HISTORY: N18.4 CKD Stage 4. CKD stage IV EXAM MEASUREMENTS: Right Kidney: 9.2 x 4.6 x 4.1 cm Left Kidney: 10.9 x 5.0 x 4.5 cm Technical limitations due to large amount of overlying bowel content Right Kidney: no evidence of hydronephrosis Left Kidney: echogenic foci lower pole = 0.5cm Bladder: thickened wall, stones noted posterior wall = 0.6cm and 0.9cm Bilateral Jets seen: no There is no evidence for hydronephrosis at this point in time. Diminished cortical medullary differen tiation bilaterally. No nephrolithiasis is seen. No masses are identified. The urinary bladder demo nstrates diffuse wall thickening and peripheral calcifications. Bilateral ureteral jets are not seen . IMPRESSION: 1. Diffusely thickened urinary bladder wall and calculi along the posterior urinary bladder wall chelsea uring 0.6cm and 0.9cm. Correlate with urinalysis. 2. No hydronephrosis or nephrolithiasis of either kidneys. Suboptimal cortical medullary differentiat ion, sequela medical renal disease. 3. Nonobstructing 0.5 cm left renal calculus.
== END | disposition home or self-care (01) ==
LOC: RADUSWWP 16:03
PROVIDERS: ATTEND Internal Medicine Nephrology
DX: N21.0 Calculus in bladder (principal); N20.0 Calculus of kidney; N28.89 Other specified disorders of kidney and ureter; N18.4 Chronic kidney disease, stage 4 (severe); R93.41 Abnormal radiologic findings on diagnostic imaging of renal pelvis, ureter, or bladder
CPT/HCPCS: 76770

== ENCOUNTER 2019-09-30 13:01 | Day surgery (SDC) | payer MEDICARE ==
[2019-09-28 16:09] VITALS: BMI 31.0
[~2019-09-30 13:01] MED LIST changes: -DEXAMETHASONE SOD PHOSPHATE 10 MG/ML 1 ML VIAL IV ONE; -HEPARIN SODIUM,PORCINE 5,000 UNIT/ML 1 ML VIAL SQ ONE; -LACTATED RINGERS 1,000 ML IV SCH; -MIDAZOLAM 2 MG/2 ML VIAL IV PRN; -ONDANSETRON 4 MG/2 ML VIAL IVP ONE; -fentaNYL (PF) 50 MCG/ML 2 ML AMP IV PRN; +metroNIDAZOLE-NS PMX 500 MG in SALINE 1 100ML.BAG IVPB ONE
[2019-09-30 13:22] VITALS: RESP 18; TEMP 97.7
[2019-09-30 13:31] LABS: Glucose,Whole Blood 88 mg/dL (75-99)
[2019-09-30] MEDS ORDERED: LIDOCAINE 1% 20 ML VIAL (10MG/ML) FOR IV START INTRADERMA ONE (13:32)
[2019-09-30] MEDS ORDERED: LACTATED RINGERS 1,000 ML IV ONE (13:32)
[2019-09-30] MEDS ORDERED: GLYCOPYRROLATE 0.2 MG/ML 2 ML VIAL ONE (14:19)
[2019-09-30] MEDS ORDERED: ROCURONIUM BROMIDE 10 MG/ML 10 ML VIAL IV ONE (14:19)
[2019-09-30] MEDS ORDERED: SUCCINYLCHOLINE CHLORIDE 100 MG/5 ML SYR IV ONE (14:19)
[2019-09-30] MEDS ORDERED: LIDOCAINE 1% INJ 10MG/ML (20 ML MDV) ONE (14:19)
[2019-09-30] MEDS ORDERED: ePHEDrine SULFATE/0.9% NACL/PF 50 MG/5 ML SYRINGE IV ONE (14:19)
[2019-09-30] MEDS ORDERED: NEOSTIGMINE 1 MG/ML 10 ML VIAL ONE (14:19)
[2019-09-30] MEDS ORDERED: PROPOFOL 10 MG/ML 20 ML VIAL IV ONE (14:19)
[2019-09-30] MEDS ORDERED: LIDOCAINE 2%-EPI 1:100,000 20 ML VIAL SUBMUCOSAL ONE ×2 (14:48)
--- NOTE | 2019-09-30 15:17 | P.OP ---
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 The patient had the cyst biopsied and removed as as a local anesthetic in the office but upon removal of the tooth fractured the posterior maxilla due to ankylosis of the tooth to the pterygoid plates. As a local in the office this became difficult to separate the colonic tooth from the posterior maxilla that it was fractured. The tooth area was closed in the fall and observed. Patient was asymptomatic until a few weeks ago where he felt like his ear was full of fluid and he was starting to get some numbness on the side of his face. Seemed unlikely that the tooth was related to this but removal of the tooth seemed like a feasible option for treatment in effort to rule out potential infections of the sinus. The patient understood the risks of the procedure including but not limited to bleeding pain infection swelling need for additional procedures worsening of the oral antral fistula worsening of the sinus limited mouth opening possible bleeding, and agreed to proceed.. Operative Findings: none Description of Procedure: patient was taken to operating room 3 where he was prepped and draped in usual fashion for clean contaminated case after a uneventful oral intubation with the glide scope per anesthesia record. Patient then had 4 mL of 2% lidocaine with epinephrine administered in an infiltrative manner around tooth #1 and the associated structures. Bite block throat pack placed. Full-thickness flap to the buccal and exposed the bone associated with tooth #1 as well as a associated attached tissue around tooth #3 and #4. Hamular notch was then exposed and a small osteotome was placed in this area. Osteotome was malleted gently noted that there was minimal movement of the tooth so bone had reattached at least with a callus and osteotome continued approximately 3 mm in this area and then a different angle was approached to the hamular notch the curved osteotome as well. The osteotome was seated and then used to elevate the tooth and this was successful and luxated and delivering the tooth. The oral edge fistula was then approached using 3-0 chromic gut suture in a interrupted fashion. This was able to be done to achieve primary closure. Patient was then awakened and extubated taken to the recovery room in stable condition strict instructions including sinus precautions of no blowing nose andstrawsgiventothepati entpreoperatively.Patienthadstartedonantibioticspreoperativelyandtheskininstruct edtocontinueherantibioticspostoperativepainmedicationgiventothepatientaswell. Plan - Discharge Summary Discharge Rx Participant: Yes New Discharge Prescriptions: No Action rOPINIRole HCL [Requip] 0.5 mg PO TID Cyclobenzaprine [Flexeril] 10 mg PO HS Allopurinol [Zyloprim] 100 mg PO W/SUPPER Furosemide [Lasix] 20 mg PO BID Gabapentin [Neurontin] 600 mg PO BID Hydrocodone/Acetaminophen [Lortab 7.5-325 mg Tablet] 1 tab PO Q4-6H PRN PRN Reason: Pain Cetirizine HCl [Zyrtec] 10 mg PO DAILY Tamsulosin HCl [Flomax] 0.4 mg PO QAM Insulin Aspart [NovoLOG Flexpen] 12 units SQ AC-TID PRN PRN Reason: Blood Sugar - High Metoprolol Tartrate [Lopressor] 25 mg PO BID Finasteride [Proscar] 5 mg PO W/SUPPER Docusate [Colace] 100 mg PO BID Isosorbide Mononitrate ER [Imdur] 30 mg PO DAILY #30 tab.er.24h Nitroglycerin Sl Tabs [Nitrostat] 0.4 mg SUBLINGUAL Q5M PRN #25 tab PRN Reason: Chest Pain Ergocalciferol [Vitamin D2 (DRISDOL)] 50,000 unit PO Q14D Aspirin 81 mg PO DAILY Clopidogrel [Plavix] 75 mg PO DAILY Albuterol Sulfate [Proair Hfa] 2 puff INHALATION Q4-6H PRN PRN Reason: Shortness Of Breath Insulin Glargine,Hum.rec.anlog [Toujeo Solostar] 50 units SQ QAM Atorvastatin [Lipitor] 40 mg PO W/SUPPER Carbidopa-Levodopa 25-100 mg [Sinemet 25-100 mg] 1 tab PO TID Polyethylene Glycol 3350 [Miralax] 17 gm PO DAILY #0 powd.pack Lisinopril [Zestril] 2.5 mg PO HS Calcitriol [Rocaltrol] 0.25 mg PO Q7D Amoxic-Pot Clav 500-125 mg [Augmentin 500-125 mg] 1 tab PO TID Discharge Medication List Allopurinol [Zyloprim] 100 mg PO W/SUPPER 06/02/16 [History] Cyclobenzaprine [Flexeril] 10 mg PO HS 06/02/16 [History] Furosemide [Lasix] 20 mg PO BID 06/02/16 [History] rOPINIRole HCL [Requip] 0.5 mg PO TID 06/02/16 [History] Gabapentin [Neurontin] 600 mg PO BID 10/26/16 [History] Hydrocodone/Acetaminophen [Lortab 7.5-325 mg Tablet] 1 tab PO Q4-6H PRN 10/26/16 [History] Cetirizine HCl [Zyrtec] 10 mg PO DAILY 05/26/18 [History] Docusate [Colace] 100 mg PO BID 05/26/18 [History] Finasteride [Proscar] 5 mg PO W/SUPPER 05/26/18 [History] Insulin Aspart [NovoLOG Flexpen] 12 units SQ AC-TID PRN 05/26/18 [History] Metoprolol Tartrate [Lopressor] 25 mg PO BID 05/26/18 [History] Tamsulosin HCl [Flomax] 0.4 mg PO QAM 05/26/18 [History] Isosorbide Mononitrate ER [Imdur] 30 mg PO DAILY #30 tab.er.24h 06/04/18 [Rx] Nitroglycerin Sl Tabs [Nitrostat] 0.4 mg SUBLINGUAL Q5M PRN #25 tab 06/04/18 [Rx] Albuterol Sulfate [Proair Hfa] 2 puff INHALATION Q4-6H PRN 07/18/19 [History] Aspirin 81 mg PO DAILY 07/18/19 [History] Atorvastatin [Lipitor] 40 mg PO W/SUPPER 07/18/19 [History] Carbidopa-Levodopa 25-100 mg [Sinemet 25-100 mg] 1 tab PO TID 07/18/19 [History] Clopidogrel [Plavix] 75 mg PO DAILY 07/18/19 [History] Ergocalciferol [Vitamin D2 (DRISDOL)] 50,000 unit PO Q14D 07/18/19 [History] Insulin Glargine,Hum.rec.anlog [Tomaria esther Solostar] 50 units SQ QAM 07/18/19 [History] Polyethylene Glycol 3350 [Miralax] 17 gm PO DAILY #0 powd.pack 07/21/19 [Rx] Lisinopril [Zestril] 2.5 mg PO HS 08/10/19 [History] Amoxic-Pot Clav 500-125 mg [Augmentin 500-125 mg] 1 tab PO TID 09/28/19 [History] Calcitriol [Rocaltrol] 0.25 mg PO Q7D 09/28/19 [History]
[2019-09-30] MEDS ORDERED: LIDOCAINE 1% 20 ML VIAL (10MG/ML) FOR IV START INTRADERMA PRN (15:54)
[2019-09-30] MEDS ORDERED: LACTATED RINGERS 1,000 ML IV SCH (16:00)
[2019-09-30 16:17] VITALS: BP 112/64; PULSE 55
== END 2019-09-30 16:34 | disposition home or self-care (01) ==
LOC: OR 13:01
PROVIDERS: ATTEND Dentist Oral and Maxillofacial Surgery
DX: K01.1 Impacted teeth (principal); J32.0 Chronic maxillary sinusitis; K12.2 Cellulitis and abscess of mouth; S02.402 Zygomatic fracture, unspecified side; I25.119 Atherosclerotic heart disease of native coronary artery with unspecified angina pectoris; I25.2 Old myocardial infarction; I10 Essential (primary) hypertension; Z95.5 Presence of coronary angioplasty implant and graft; N40.0 Benign prostatic hyperplasia without lower urinary tract symptoms; G20 Parkinson's disease; E11.9 Type 2 diabetes mellitus without complications; Z88.5 Allergy status to narcotic agent; Z88.1 Allergy status to other antibiotic agents; Z88.8 Allergy status to other drugs, medicaments and biological substances; Z79.899 Other long term (current) drug therapy; Z79.4 Long term (current) use of insulin; Z79.02 Long term (current) use of antithrombotics/antiplatelets; Z79.82 Long term (current) use of aspirin
CPT/HCPCS: 30580; 41899; J2710; J0690; J2001; J0330; J2704

== ENCOUNTER → 2019-11-04 | Outpatient (CLI) | payer MEDICARE ==
--- NOTE | 2019-11-04 20:10 | XR ---
EXAMINATION TYPE: XR thoracic spine complete DATE OF EXAM: 11/04/2019 COMPARISON: Chest x-ray 05/05/2018 HISTORY: Back pain for many months TECHNIQUE: 3 views FINDINGS: Thoracic vertebra have normal alignment. There is anterior spurring in the mid and lower th oracic spine. There is no compression fracture. There is no thoracic or spinal mass. Posterior elemen ts are intact. IMPRESSION: Multilevel spondylotic changes. No compression fracture. No significant change compared t o old exam.
== END | disposition home or self-care (01) ==
LOC: RAD 17:14
PROVIDERS: ATTEND Internal Medicine Geriatric Medicine
DX: M47.814 Spondylosis without myelopathy or radiculopathy, thoracic region (principal)
CPT/HCPCS: 72072

== ENCOUNTER 2020-03-12 01:27 | Inpatient (IN) | payer MEDICARE ==
[2020-03-12] MEDS ORDERED: SODIUM CHLORIDE 0.9% 1,000 ML IV STA (01:39)
[2020-03-12] MEDS ORDERED: ACETAMINOPHEN TAB 500 MG TAB PO STA (01:39)
[2020-03-12 01:46] LABS: Glucose,Whole Blood 261 mg/dL (75-99)
[2020-03-12 02:04] LABS: Basophils % (A) 1 %; Eosinophils # (A) 0.2 k/uL (0-0.7); Eosinophils % (A) 2 %; HCT 41.4 % (39.0-53.0); HGB 14.1 gm/dL (13.0-17.5); Lymphocytes # (A) 0.4 k/uL (1.0-4.8); Lymphocytes % (A) 6 %; MCH 31.3 pg (25.0-35.0); MCHC 34.2 g/dL (31.0-37.0); MCV 91.6 fL (80.0-100.0); Mean Platelet Volume 7.7; Monocytes # (A) 0.3 k/uL (0-1.0); Monocytes % (A) 4 %; Neutrophils # (A) 5.9 k/uL (1.3-7.7); Neutrophils % (A) 87 %; Platelet Count 146 k/uL (150-450); RBC 4.52 m/uL (4.30-5.90); RDW 14.4 % (11.5-15.5); WBC 6.8 k/uL (3.8-10.6)
--- NOTE | 2020-03-12 02:14 | ED ---
Fever HPI - General Chief Complaint: Altered Mental Status Stated Complaint: UTI Time Seen by Provider: 03/12/20 01:29 Source: EMS, RN notes reviewed, old records reviewed Mode of arrival: EMS Limitations: no limitations - History of Present Illness Initial Comments: This is a 4-year-old male DF for evaluation patient is presented with altered mental status is a poor historian history obtained by EMS and prior charting. Patient has known UTI which he did finish antibiotic treatment coming in with fever sweating and altered mental status MD Complaint: fever, malaise, weakness -: days(s) Temperature Source: subjective Context: sick contacts, recent antibiotic use Associated Symptoms: chills, rigors, nausea, confusion Treatments Prior to Arrival: none - Related Data Home Medications Medication Instructions Recorded Confirmed Allopurinol [Zyloprim] 100 mg PO W/SUPPER 06/02/16 03/12/20 Cyclobenzaprine [Flexeril] 10 mg PO HS 06/02/16 03/12/20 rOPINIRole HCL [Requip] 0.5 mg PO BID 06/02/16 03/12/20 Cetirizine HCl [Zyrtec] 10 mg PO DAILY 05/26/18 03/12/20 Finasteride [Proscar] 5 mg PO W/SUPPER 05/26/18 03/12/20 Metoprolol Tartrate [Lopressor] 25 mg PO BID 05/26/18 03/12/20 Tamsulosin HCl [Flomax] 0.4 mg PO DAILY 05/26/18 03/12/20 Aspirin 81 mg PO DAILY 07/18/19 03/12/20 Atorvastatin [Lipitor] 40 mg PO W/SUPPER 07/18/19 03/12/20 Carbidopa-Levodopa 25-100 mg 1 tab PO TID 07/18/19 03/12/20 [Sinemet 25-100 mg] Ergocalciferol [Vitamin D2 50,000 unit PO Q14D 07/18/19 03/12/20 (DRISDOL)] Insulin Glargine,Hum.rec.anlog 50 units SQ DAILY 07/18/19 03/12/20 [Toujeo Solostar] Calcitriol [Rocaltrol] 0.25 mg PO Q7D 09/28/19 03/12/20 Previous Rx's Medication Instructions Recorded Isosorbide Mononitrate ER [Imdur] 30 mg PO DAILY #30 tab.er.24h 06/04/18 Nitroglycerin Sl Tabs [Nitrostat] 0.4 mg SUBLINGUAL Q5M PRN #25 tab 06/04/18 Polyethylene Glycol 3350 [Miralax] 17 gm PO DAILY #0 powd.pack 07/21/19 Acetaminophen Tab [Tylenol] 650 mg PO Q6HR PRN tab 03/15/20 Albuterol Inhaler [Ventolin Hfa 2 puff INHALATION Q4HR PRN puff 03/15/20 Inhaler] Ciprofloxacin HCl [Cipro] 250 mg PO DAILY 10 Days #10 tab 03/15/20 Clopidogrel [Plavix] 75 mg PO DAILY tab 03/15/20 Docusate [Colace] 100 mg PO BID cap 03/15/20 Furosemide [Lasix] 40 mg PO BID@0900,1600 tab 03/15/20 Gabapentin [Neurontin] 300 mg PO BID #6 cap 03/15/20 HYDROcodone/APAP 7.5-325MG [Dix 1 each PO Q6HR PRN #12 tab 03/15/20 7.5-325] INSULIN ASPART (NovoLOG) [NovoLOG 0 unit SQ ACHS vial 03/15/20 (formulary)] Pregabalin [Lyrica] 50 mg PO BID #6 cap 03/15/20 Sodium Bicarbonate Tab 650 mg PO BID tab 03/15/20 fentaNYL 25MCG/HR PATCH [Duragesic 1 patch TRANSDERM Q72H #1 patch 03/15/20 25MCG/HR] Allergies Allergy/AdvReac Type Severity Reaction Status Date / Time baclofen AdvReac Severe Nausea & Verified 03/12/20 09:09 Vomiting hydromorphone HCl AdvReac Nausea & Verified 03/12/20 09:09 [From Dilaudid] Vomiting morphine AdvReac Hallucinati Verified 03/12/20 09:09 ons vancomycin AdvReac Chills, Verified 03/12/20 09:09 Sweating, Did not feel well Review of Systems ROS Statement: Those systems with pertinent positive or pertinent negative responses have been documented in the HPI. ROS Other: All systems not noted in ROS Statement are negative. Past Medical History Past Medical History: Coronary Artery Disease (CAD), Cancer, Chest Pain / Angina, Diabetes Mellitus, Hyperlipidemia, Hypertension, Osteoarthritis (OA), Prostate Disorder, Renal Disease Additional Past Medical History / Comment(s): parkinson's, hx gout, hx basal cell carcinoma on head, melanoma lt shoulder, hx kidney stones, currently 2 bladder stones, hx migraines, constipation, History of Any Multi-Drug Resistant Organisms: MRSA Date of last positivie culture/infection: 2004 MDRO Source:: rt shoulder Past Surgical History: Back Surgery, Cholecystectomy, Ear Surgery, Heart Catheterization, Heart Catheterization With Stent, Joint Replacement, Orthopedic Surgery, Tonsillectomy Additional Past Surgical History / Comment(s): cody knee replacement, cody. carpal tunnel release, cody shoulder rotator cuff repair, back surgery x5, (laminectomy, laminectomy with fusion, laminectomy and partial removal of fusion x2) lumbar fusionL4,L5, lt ear surgery x3 with replacement malleus/incus/stapes, revision of tympanoplasty, wide excision melanoma left shoulder, I&D rt thumb, lith otripsy,cystoscopy with kidney stone retrieved, cody cataracts, face and left ear multiple lesion removal, oral surgery, one cardiac stent, cody knee arthroscopy, debridement of rt shoulder x 2 with partial closure of rt shoulder, Past Anesthesia/Blood Transfusion Reactions: Family History of Problems w/ Anesthesia Additional Past Anesthesia/Blood Transfusion Reaction / Comment(s): hx vertigo, brother had issues-not sure what it was Date of Last Stent Placement:: 06/2018 Past Psychological History: No Psychological Hx Reported Smoking Status: Never smoker Past Alcohol Use History: None Reported Past Drug Use History: None Reported - Past Family History Mother Family Medical History: Cancer Father Family Medical History: Coronary Artery Disease (CAD), Hypertension Brother(s) Family Medical History: Cancer Sister(s) Family Medical History: Cancer, COPD, Diabetes Mellitus, Hypertension General Exam Limitations: no limitations General appearance: alert, lethargic, in distress Head exam: Present: atraumatic, normocephalic, normal inspection Eye exam: Present: normal appearance, PERRL, EOMI. Absent: scleral icterus, conjunctival injection, periorbital swelling ENT exam: Present: normal exam, mucous membranes moist Neck exam: Present: normal inspection. Absent: tenderness, meningismus, lymphadenopathy Respiratory exam: Present: normal lung sounds bilaterally. Absent: respiratory distress, wheezes, rales, rhonchi, stridor Cardiovascular Exam: Present: normal rhythm, tachycardia, normal heart sounds. Absent: systolic murmur, diastolic murmur, rubs, gallop, clicks GI/Abdominal exam: Present: soft, normal bowel sounds. Absent: distended, tenderness, guarding, rebound, rigid Extremities exam: Present: normal inspection, full ROM, normal capillary refill. Absent: tenderness, pedal edema, joint swelling, calf tenderness Back exam: Present: normal inspection Neurological exam: Present: alert, oriented X3, CN II-XII intact Psychiatric exam: Present: normal affect, normal mood Skin exam: Present: warm, dry, intact, normal color. Absent: rash Course Vital Signs 03/12/20 03/12/20 01:28 03:04 Temperature 103 F H 100.5 F H Pulse Rate 103 H 78 Respiratory 18 18 Rate Blood Pressure 131/73 124/78 O2 Sat by Pulse 93 L 100 Oximetry - Reevaluation(s) Reevaluation #1: Medical records reviewed Patient has severe weakness symptoms worse despite medication Patient is a severe fever not feeling well Medical Decision Making - Medical Decision Making 84 male DF for evaluation of fever severe urinary tract infection is fell outpat ient treatment. Patient be admitted for IV antibiotics hemodynamic support - Lab Data Result diagrams: 03/14/20 03:47 03/16/20 07:34 Lab Results 03/12/20 03/12/20 03/12/20 Range/Units 01:42 01:43 01:43 WBC 6.8 (3.8-10.6) k/uL RBC 4.52 (4.30-5.90) m/uL Hgb 14.1 (13.0-17.5) gm/dL Hct 41.4 (39.0-53.0) % MCV 91.6 (80.0-100.0) fL MCH 31.3 (25.0-35.0) pg MCHC 34.2 (31.0-37.0) g/dL RDW 14.4 (11.5-15.5) % Plt Count 146 L (150-450) k/uL Neutrophils % 87 % Lymphocytes % 6 % Monocytes % 4 % Eosinophils % 2 % Basophils % 1 % Neutrophils # 5.9 (1.3-7.7) k/uL Lymphocytes # 0.4 L (1.0-4.8) k/uL Monocytes # 0.3 (0-1.0) k/uL Eosinophils # 0.2 (0-0.7) k/uL Basophils # 0.0 (0-0.2) k/uL PT 10.3 (9.0-12.0) sec INR 1.0 (<1.2) APTT 23.8 (22.0-30.0) sec Sodium (137-145) mmol/L Potassium (3.5-5.1) mmol/L Chloride (98-107) mmol/L Carbon Dioxide (22-30) mmol/L Anion Gap mmol/L BUN (9-20) mg/dL Creatinine (0.66-1.25) mg/dL Est GFR (CKD-EPI)AfAm (>60 ml/min/1.73 sqM) Est GFR (CKD-EPI)NonAf (>60 ml/min/1.73 sqM) Glucose (74-99) mg/dL POC Glucose (mg/dL) 261 H (75-99) mg/dL POC Glu [employer] Anjelica Whitley Lactic Ac Sepsis Rflx Plasma Lactic Acid Eladio (0.7-2.0) mmol/L Calcium (8.4-10.2) mg/dL Phosphorus (2.5-4.5) mg/dL Magnesium (1.6-2.3) mg/dL Total Bilirubin (0.2-1.3) mg/dL AST (17-59) U/L ALT (4-49) U/L Alkaline Phosphatase (38-126) U/L Creatine Kinase (55-170) U/L Troponin I (0.000-0.034) ng/mL Total Protein (6.3-8.2) g/dL Albumin (3.5-5.0) g/dL Urine Color Urine Appearance (Clear) Urine pH (5.0-8.0) Ur Specific [place] (1.001-1.035) Urine Protein (Negative) Urine Glucose (UA) (Negative) Urine Ketones (Negative) Urine Blood (Negative) Urine Nitrite (Negative) Urine Bilirubin (Negative) Urine Urobilinogen (<2.0) mg/dL Ur Leukocyte Esterase (Negative) Urine RBC (0-5) /hpf Urine WBC (0-5) /hpf Urine WBC Clumps (None) /hpf Urine Bacteria (None) /hpf Urine Mucus (None) /hpf Coronavirus (PCR) (Not Detected) 03/12/20 03/12/20 03/12/20 Range/Units 01:43 01:43 01:43 WBC (3.8-10.6) k/uL RBC (4.30-5.90) m/uL Hgb (13.0-17.5) gm/dL Hct (39.0-53.0) % MCV (80.0-100.0) fL MCH (25.0-35.0) pg MCHC (31.0-37.0) g/dL RDW (11.5-15.5) % Plt Count (150-450) k/uL Neutrophils % % Lymphocytes % % Monocytes % % Eosinophils % % Basophils % % Neutrophils # (1.3-7.7) k/uL Lymphocytes # (1.0-4.8) k/uL Monocytes # (0-1.0) k/uL Eosinophils # (0-0.7) k/uL Basophils # (0-0.2) k/uL PT (9.0-12.0) sec INR (<1.2) APTT (22.0-30.0) sec Sodium 134 L (137-145) mmol/L Potassium 6.2 H* (3.5-5.1) mmol/L Chloride 104 (98-107) mmol/L Carbon Dioxide 16 L (22-30) mmol/L Anion Gap 14 mmol/L BUN 75 H (9-20) mg/dL Creatinine 2.61 H (0.66-1.25) mg/dL Est GFR (CKD-EPI)AfAm 25 (>60 ml/min/1.73 sqM) Est GFR (CKD-EPI)NonAf 21 (>60 ml/min/1.73 sqM) Glucose 257 H (74-99) mg/dL POC Glucose (mg/dL) (75-99) mg/dL POC Glu [employer] ID Lactic Ac Sepsis Rflx Plasma Lactic Acid Eladio 2.3 H* (0.7-2.0) mmol/L Calcium 8.8 (8.4-10.2) mg/dL Phosphorus 2.7 (2.5-4.5) mg/dL Magnesium 1.8 (1.6-2.3) mg/dL Total Bilirubin 0.9 (0.2-1.3) mg/dL AST 18 (17-59) U/L ALT 10 (4-49) U/L Alkaline Phosphatase 131 H (38-126) U/L Creatine Kinase 45 L (55-170) U/L Troponin I 0.014 (0.000-0.034) ng/mL Total Protein 7.4 (6.3-8.2) g/dL Albumin 4.3 (3.5-5.0) g/dL Urine Color Urine Appearance (Clear) Urine pH (5.0-8.0) Ur Specific [place] (1.001-1.035) Urine Protein (Negative) Urine Glucose (UA) (Negative) Urine Ketones (Negative) Urine Blood (Negative) Urine Nitrite (Negative) Urine Bilirubin (Negative) Urine Urobilinogen (<2.0) mg/dL Ur Leukocyte Esterase (Negative) Urine RBC (0-5) /hpf Urine WBC (0-5) /hpf Urine WBC Clumps (None) /hpf Urine Bacteria (None) /hpf Urine Mucus (None) /hpf Coronavirus (PCR) (Not Detected) 03/12/20 03/12/20 03/12/20 Range/Units 02:12 02:16 02:26 WBC (3.8-10.6) k/uL RBC (4.30-5.90) m/uL Hgb (13.0-17.5) gm/dL Hct (39.0-53.0) % MCV (80.0-100.0) fL MCH (25.0-35.0) pg MCHC (31.0-37.0) g/dL RDW (11.5-15.5) % Plt Count (150-450) k/uL Neutrophils % % Lymphocytes % % Monocytes % % Eosinophils % % Basophils % % Neutrophils # (1.3-7.7) k/uL Lymphocytes # (1.0-4.8) k/uL Monocytes # (0-1.0) k/uL Eosinophils # (0-0.7) k/uL Basophils # (0-0.2) k/uL PT (9.0-12.0) sec INR (<1.2) APTT (22.0-30.0) sec Sodium (137-145) mmol/L Potassium (3.5-5.1) mmol/L Chloride (98-107) mmol/L Carbon Dioxide (22-30) mmol/L Anion Gap mmol/L BUN (9-20) mg/dL Creatinine (0.66-1.25) mg/dL Est GFR (CKD-EPI)AfAm (>60 ml/min/1.73 sqM) Est GFR (CKD-EPI)NonAf (>60 ml/min/1.73 sqM) Glucose (74-99) mg/dL POC Glucose (mg/dL) (75-99) mg/dL POC Glu [employer] ID Lactic Ac Sepsis Rflx Y Plasma Lactic Acid Eladio (0.7-2.0) mmol/L Calcium (8.4-10.2) mg/dL Phosphorus (2.5-4.5) mg/dL Magnesium (1.6-2.3) mg/dL Total Bilirubin (0.2-1.3) mg/dL AST (17-59) U/L ALT (4-49) U/L Alkaline Phosphatase (38-126) U/L Creatine Kinase (55-170) U/L Troponin I (0.000-0.034) ng/mL Total Protein (6.3-8.2) g/dL Albumin (3.5-5.0) g/dL Urine Color Yellow Urine Appearance Turbid (Clear) Urine pH 5.5 (5.0-8.0) Ur Specific [place] 1.017 (1.001-1.035) Urine Protein 1+ H (Negative) Urine Glucose (UA) 2+ H (Negative) Urine Ketones Negative (Negative) Urine Blood Large H (Negative) Urine Nitrite Positive (Negative) Urine Bilirubin Negative (Negative) Urine Urobilinogen <2.0 (<2.0) mg/dL Ur Leukocyte Esterase Large H (Negative) Urine RBC 179 H (0-5) /hpf Urine WBC >182 H (0-5) /hpf Urine WBC Clumps Many H (None) /hpf Urine Bacteria Many H (None) /hpf Urine Mucus Rare H (None) /hpf Coronavirus (PCR) Not Detected (Not Detected) - EKG Data -: EKG Interpreted by Me (EKG shows sinus tach 101 CT 144 QRS 102 QTC 396) - Radiology Data Radiology results: report reviewed (Chest x-rays negative for acute disease), image reviewed Disposition Clinical Impression: Altered mental status, UTI (urinary tract infection), Fever, Failure of outpatient treatment Disposition: ADMITTED IP TO THIS HOSP Condition: Good Is patient prescribed a controlled substance at d/c from ED?: No
[2020-03-12 02:20] LABS: Albumin 4.3 g/dL (3.5-5.0); Calcium 8.8 mg/dL (8.4-10.2); Magnesium 1.8 mg/dL (1.6-2.3); Phosphorus 2.7 mg/dL (2.5-4.5); Total Bilirubin 0.9 mg/dL (0.2-1.3); Total Protein 7.4 g/dL (6.3-8.2)
[2020-03-12 02:27] LABS: Potassium 6.2 mmol/L (3.5-5.1)
[2020-03-12 02:29] LABS: Partial Thromboplastin Time 23.8 sec (22.0-30.0); Prothrombin Time 10.3 sec (9.0-12.0)
--- NOTE | 2020-03-12 02:31 | XR ---
EXAMINATION TYPE: XR chest 2V DATE OF EXAM: 03/12/2020 COMPARISON: 05/05/2018 HISTORY: Weakness TECHNIQUE: 2 views FINDINGS: There is some mild linear density at the lung bases. There is poor inspiration. There is no heart failure. There are chest leads. There is no definite pleural effusion. There is no pulmonary c onsolidation. IMPRESSION: There is patchy atelectasis at the lung bases that is new compared to old exam. Normal he art.
[2020-03-12 03:07] LABS: Appearance,Urine Turbid (Clear); Bacteria,Urine Many /hpf; Bilirubin,Urine Negative (Negative); Blood,Urine Large (Negative); Color,Urine Yellow; Glucose,Urine (UA) 2+ (Negative); Ketones,Urine Negative (Negative); Leukocyte Esterase,Urine Large (Negative); Mucus,Urine Rare /hpf; Nitrite,Urine Positive (Negative); PH, Urine 5.5 (5.0-8.0); Protein,Urine 1+ (Negative); RBC,Urine 179 /hpf (0-5); Specific Gravity,Urine 1.017 (1.001-1.035); Urobilinogen,Urine <2.0 mg/dL (<2.0); WBC,Urine >182 /hpf (0-5)
[2020-03-12] MEDS ORDERED: MORPHINE SULFATE 4 MG/ML SYRINGE IVP PRN (03:25)
[2020-03-12] MEDS ORDERED: PIPERACILLIN-TAZOBACTAM 3.375 GM in SODIUM CHLORIDE 0.9% 100 ML IVPB STA (03:25)
[2020-03-12] MEDS ORDERED: LEVOFLOXACIN 750MG-D5W PMX 750 MG in DEXTROSE/WATER 1 150ML.BAG IVPB STA (03:25)
[2020-03-12] MEDS ORDERED: LEVOFLOXACIN 750MG-D5W PMX 750 MG in DEXTROSE/WATER 1 150ML.BAG IVPB SCH ×2 (03:30→04:15)
[2020-03-12] MEDS: SODIUM CHLORIDE 0.9% 1,000 ML IV SCH ×3 (03:42→18:25)
[2020-03-12] MEDS: MORPHINE SULFATE 4 MG/ML SYRINGE IVP STA ×2 (03:43→03:50)
[2020-03-12] MEDS: SODIUM CHLORIDE 0.9% 500 ML 500 ML IV SCH ×3 (03:43→05:58)
[2020-03-12 07:08] LABS: Glucose,Whole Blood 216 mg/dL (75-99)
[2020-03-12] MEDS ORDERED: SODIUM POLYSTYRENE SULFONATE 15 GM/60 ML BOTTLE PO STA (08:20)
[2020-03-12] MEDS ORDERED: NITROGLYCERIN SL TABS 0.4 MG TAB SUBLINGUAL PRN (08:28)
[2020-03-12] MEDS ORDERED: INSULIN ASPART 12 UNIT SQ PRN (08:28)
[2020-03-12] MEDS ORDERED: FUROSEMIDE 20 MG TAB PO SCH (09:00)
[2020-03-12] MEDS ORDERED: INSULIN DETEMIR (LEVEMIR) 100 UNIT/ML SYR SQ SCH (09:00)
[2020-03-12 09:14] LABS: Basophils % (A) 1 %; Eosinophils # (A) 0.1 k/uL (0-0.7); Eosinophils % (A) 1 %; HCT 41.1 % (39.0-53.0); HGB 13.6 gm/dL (13.0-17.5); Lymphocytes # (A) 0.7 k/uL (1.0-4.8); Lymphocytes % (A) 11 %; MCH 31.4 pg (25.0-35.0); MCHC 33.1 g/dL (31.0-37.0); MCV 94.7 fL (80.0-100.0); Mean Platelet Volume 7.4; Monocytes # (A) 0.2 k/uL (0-1.0); Monocytes % (A) 4 %; Neutrophils # (A) 5.3 k/uL (1.3-7.7); Neutrophils % (A) 83 %; Platelet Count 138 k/uL (150-450); RBC 4.34 m/uL (4.30-5.90); RDW 14.4 % (11.5-15.5); WBC 6.4 k/uL (3.8-10.6)
[2020-03-12 09:24] LABS: Albumin 3.8 g/dL (3.5-5.0); Calcium 7.9 mg/dL (8.4-10.2); Potassium 5.3 mmol/L (3.5-5.1); Total Bilirubin 1.1 mg/dL (0.2-1.3); Total Protein 6.8 g/dL (6.3-8.2)
[2020-03-12] MEDS: DOCUSATE 100 MG CAP PO SCH ×2 (10:20→20:46)
[2020-03-12] MEDS: ISOSORBIDE MONONITRATE ER 30 MG TAB.ER.24H PO SCH (10:20)
[2020-03-12] MEDS: GABAPENTIN 300 MG CAP PO SCH ×2 (10:21→20:50)
[2020-03-12] MEDS: TAMSULOSIN 0.4 MG CAP.ER.24H PO SCH (10:21)
[2020-03-12] MEDS: LORATADINE 10 MG TAB PO SCH (10:21)
[2020-03-12] MEDS: ASPIRIN 81 MG PO SCH (10:22)
[2020-03-12] MEDS: CLOPIDOGREL 75 MG TAB PO SCH (10:22)
[2020-03-12] MEDS: CARBIDOPA-LEVODOPA 25-100 MG 1 EACH TAB PO SCH ×3 (10:22→22:06)
[2020-03-12] MEDS: ENOXAPARIN 40 MG/0.4 ML SYRINGE SQ SCH (10:22)
[2020-03-12] MEDS: POLYETHYLENE GLYCOL 3350 17 GM POWD.PACK PO SCH (10:23)
[2020-03-12] MEDS: PIPERACILLIN-TAZOBACTAM 3.375 GM in SODIUM CHLORIDE 0.9% 100 ML IVPB SCH ×2 (10:23→20:44)
[2020-03-12] MEDS: METOPROLOL TARTRATE 25 MG TAB PO SCH ×2 (10:24→21:36)
[2020-03-12] MEDS: HYDROcodone/APAP 7.5-325MG 1 EACH TAB PO PRN (10:42)
[2020-03-12 11:17] LABS: Glucose,Whole Blood 234 mg/dL (75-99)
[2020-03-12] MEDS ORDERED: FUROSEMIDE 10 MG/ML 4 ML VIAL IV STA (11:26)
[2020-03-12] MEDS ORDERED: ACETAMINOPHEN TAB 325 MG TAB PO PRN (11:54)
--- NOTE | 2020-03-12 12:30 | XR ---
EXAMINATION TYPE: XR chest 1V portable DATE OF EXAM: 03/12/2020 CLINICAL HISTORY: Difficulty breathing and fever. TECHNIQUE: Single AP portable upright view of the chest is obtained. COMPARISON: Chest x-ray from earlier today FINDINGS: Persistent cardiomegaly with increasing central vascular congestion. Diminished inspiratio n on current study on background low lung volumes. Patchy left basilar atelectasis remains present. M etallic anchor or foreign body left humeral head level again seen. IMPRESSION: Diminished inspiration with new [id number] diffuse interstitial edema felt present on background cardiomegaly. Correlate for CHF exacerbation or developing fluid overload state.
--- NOTE | 2020-03-12 12:35 | P.GSCN ---
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 He has had multiple back issues over the years including multiple surgeries. It has left him with a very difficult gait issue as well as a hypotonic neurogenic bladder. He also has early onset Parkinson's. Patient has a known history of incomplete bladder emptying which was felt to be due to his hypotonic bladder. Over the last several weeks he has had urinary infections. He is been treated by a couple times as outpatient only to have the symptoms returned. He has had recurrent febrile infections. He came into the emergency room last night with an elevated temperature 103. His urine is infected. He was just catheterized this morning. He has about 400 mL of very purulent looking urine. There is also a history kidney stones. He had an ultrasound in September that did not show any hydronephrosis or stones. There is a question of bladder stones up. He has not had any x-rays as of late. He states he's been urinating without too much difficulty. He has some right-sided back pain. He has no testicular or scrotal discomfort. He denies incontinence hematuria. He has had the recurrent bladder infections as mentioned. Review of Systems - Constitutional Reports anorexia, Reports fever - Genitourinary Reports as per HPI - Musculoskeletal Reports leg numbness/tingling, Reports low back pain Past Medical History Past Medical History: Coronary Artery Disease (CAD), Cancer, Chest Pain / Angina, Diabetes Mellitus, Hyperlipidemia, Hypertension, Osteoarthritis (OA), Prostate Disorder, Renal Disease Additional Past Medical History / Comment(s): parkinson's, hx gout, hx basal cell carcinoma on head, melanoma lt shoulder, hx kidney stones, currently 2 bladder stones, hx migraines, constipation, History of Any Multi-Drug Resistant Organisms: MRSA Year Discovered:: 2004 MDRO Source:: rt shoulder Past Surgical History: Back Surgery, Cholecystectomy, Ear Surgery, Heart Catheterization, Heart Catheterization With Stent, Joint Replacement, Orthopedic Surgery, Tonsillectomy Additional Past Surgical History / Comment(s): cody knee replacement, cody. carpal tunnel release, cody shoulder rotator cuff repair, back surgery x5, (laminectomy, laminectomy with fusion, laminectomy and partial removal of fusion x2) lumbar fusionL4,L5, lt ear surgery x3 with replacement malleus/incus/stapes, revision of tympanoplasty, wide excision melanoma left shoulder, I&D rt thumb, lithotripsy,cystoscopy with kidney stone retrieved, cody cataracts, face and left ear multiple lesion removal, oral surgery, one cardiac stent, cody knee arthroscopy, debridement of rt shoulder x 2 with partial closure of rt shoulder, Past Anesthesia/Blood Transfusion Reactions: Family History of Problems w/ Anesthesia Additional Past Anesthesia/Blood Transfusion Reaction / Comm: hx vertigo, brother had issues-not sure what it was Date of Last Stent Placement:: 06/2018 Past Psychological History: No Psychological Hx Reported Smoking Status: Never smoker Past Alcohol Use History: None Reported Past Drug Use History: None Reported - Past Family History Mother Family Medical History: Cancer Father Family Medical History: Coronary Artery Disease (CAD), Hypertension Brother(s) Family Medical History: Cancer Sister(s) Family Medical History: Cancer, COPD, Diabetes Mellitus, Hypertension Medications and Allergies Home Medications Medication Instructions Recorded Confirmed Type Allopurinol [Zyloprim] 100 mg PO W/SUPPER 06/02/16 03/12/20 History Cyclobenzaprine [Flexeril] 10 mg PO HS 06/02/16 03/12/20 History Furosemide [Lasix] 20 mg PO BID 06/02/16 03/12/20 History rOPINIRole HCL [Requip] 0.5 mg PO BID 06/02/16 03/12/20 History Gabapentin [Neurontin] 600 mg PO BID 10/26/16 03/12/20 History Cetirizine HCl [Zyrtec] 10 mg PO DAILY 05/26/18 03/12/20 History Finasteride [Proscar] 5 mg PO W/SUPPER 05/26/18 03/12/20 History Insulin Aspart [NovoLOG Flexpen] See Protocol SQ AC-TID PRN 05/26/18 03/12/20 History Metoprolol Tartrate [Lopressor] 25 mg PO BID 05/26/18 03/12/20 History Tamsulosin HCl [Flomax] 0.4 mg PO DAILY 05/26/18 03/12/20 History Isosorbide Mononitrate ER [Imdur] 30 mg PO DAILY #30 tab.er.24h 06/04/18 03/12/20 Rx Nitroglycerin Sl Tabs [Nitrostat] 0.4 mg SUBLINGUAL Q5M PRN #25 tab 06/04/18 03/12/20 Rx Aspirin 81 mg PO DAILY 07/18/19 03/12/20 History Atorvastatin [Lipitor] 40 mg PO W/SUPPER 07/18/19 03/12/20 History Carbidopa-Levodopa 25-100 mg 1 tab PO TID 07/18/19 03/12/20 History [Sinemet 25-100 mg] Ergocalciferol [Vitamin D2 50,000 unit PO Q14D 07/18/19 03/12/20 History (DRISDOL)] Insulin Glargine,Hum.rec.anlog 50 units SQ DAILY 07/18/19 03/12/20 History [Toujeo Solostar] Polyethylene Glycol 3350 [Miralax] 17 gm PO DAILY #0 powd.pack 07/21/19 03/12/20 Rx Lisinopril [Zestril] 2.5 mg PO HS 08/10/19 03/12/20 History Calcitriol [Rocaltrol] 0.25 mg PO Q7D 09/28/19 03/12/20 History Hydrocodone/Acetaminophen [[place] 1 tab PO Q6H PRN 03/12/20 03/12/20 History 10-325] Allergies Allergy/AdvReac Type Severity Reaction Status Date / Time baclofen AdvReac Severe Nausea & Verified 03/12/20 09:09 Vomiting hydromorphone HCl AdvReac Nausea & Verified 03/12/20 09:09 [From Dilaudid] Vomiting morphine AdvReac Hallucinati Verified 03/12/20 09:09 ons vancomycin AdvReac Chills, Verified 03/12/20 09:09 Sweating, Did not feel well Surgical - Exam Vital Signs Temp Pulse Resp BP Pulse Ox 103 F H 103 H 18 131/73 93 L 03/12/20 01:28 03/12/20 01:28 03/12/20 01:28 03/12/20 01:03/12/20 01:28 - General well developed, well nourished, moderate distress - Eyes PERRL - ENT no hearing loss - Neck trachea midline - Respiratory Congested cough - Cardiovascular Rhythm: regular - Abdomen Abdomen: soft, non tender - Genitourinary Noncircumcised indwelling catheter very purulent looking urine and rectal examinations deferred normal penis with no external lesions, testicles present - Integumentary no rash, no growths - Neurologic normal sensation - Musculoskeletal normal posture - Psychiatric oriented to time, oriented to person, oriented to place, speech is normal, memory intact Results - Labs 03/12/20 08:44 03/12/20 08:44 Abnormal Lab Results - Last 24 Hours (Table) 03/12/20 03/12/20 03/12/20 Range/Units 01:42 01:43 01:43 Plt Count 146 L (150-450) k/uL Lymphocytes # 0.4 L (1.0-4.8) k/uL Sodium 134 L (137-145) mmol/L Potassium 6.2 H* (3.5-5.1) mmol/L Carbon Dioxide 16 L (22-30) mmol/L BUN 75 H (9-20) mg/dL Creatinine 2.61 H (0.66-1.25) mg/dL Glucose 257 H (74-99) mg/dL POC Glucose (mg/dL) 261 H (75-99) mg/dL Plasma Lactic Acid Eladio (0.7-2.0) mmol/L Calcium (8.4-10.2) mg/dL Alkaline Phosphatase 131 H (38-126) U/L Creatine Kinase 45 L (55-170) U/L Urine Protein (Negative) Urine Glucose (UA) (Negative) Urine Blood (Negative) Ur Leukocyte Esterase (Negative) Urine RBC (0-5) /hpf Urine WBC (0-5) /hpf Urine WBC Clumps (None) /hpf Urine Bacteria (None) /hpf Urine Mucus (None) /hpf 03/12/20 03/12/20 03/12/20 Range/Units 01:43 02:12 07:07 Plt Count (150-450) k/uL Lymphocytes # (1.0-4.8) k/uL Sodium (137-145) mmol/L Potassium (3.5-5.1) mmol/L Carbon Dioxide (22-30) mmol/L BUN (9-20) mg/dL Creatinine (0.66-1.25) mg/dL Glucose (74-99) mg/dL POC Glucose (mg/dL) 216 H (75-99) mg/dL Plasma Lactic Acid Eladio 2.3 H* (0.7-2.0) mmol/L Calcium (8.4-10.2) mg/dL Alkaline Phosphatase (38-126) U/L Creatine Kinase (55-170) U/L Urine Protein 1+ H (Negative) Urine Glucose (UA) 2+ H (Negative) Urine Blood Large H (Negative) Ur Leukocyte Esterase Large H (Negative) Urine RBC 179 H (0-5) /hpf Urine WBC >182 H (0-5) /hpf Urine WBC Clumps Many H (None) /hpf Urine Bacteria Many H (None) /hpf Urine Mucus Rare H (None) /hpf 03/12/20 03/12/20 03/12/20 Range/Units 08:44 08:44 11:15 Plt Count 138 L (150-450) k/uL Lymphocytes # 0.7 L (1.0-4.8) k/uL Sodium (137-145) mmol/L Potassium 5.3 H (3.5-5.1) mmol/L Carbon Dioxide 15 L (22-30) mmol/L BUN 70 H (9-20) mg/dL Creatinine 2.60 H (0.66-1.25) mg/dL Glucose 188 H (74-99) mg/dL POC Glucose (mg/dL) 234 H (75-99) mg/dL Plasma Lactic Acid Eladio (0.7-2.0) mmol/L Calcium 7.9 L (8.4-10.2) mg/dL Alkaline Phosphatase (38-126) U/L Creatine Kinase (55-170) U/L Urine Protein (Negative) Urine Glucose (UA) (Negative) Urine Blood (Negative) Ur Leukocyte Esterase (Negative) Urine RBC (0-5) /hpf Urine WBC (0-5) /hpf Urine WBC Clumps (None) /hpf Urine Bacteria (None) /hpf Urine Mucus (None) /hpf Microbiology - Last 24 Hours (Table) 03/12/20 02:12 Urine Culture - Preliminary Urine,Voided Diabetes panel 03/12/20 03/12/20 Range/Units 01:43 08:44 Sodium 134 L 137 (137-145) mmol/L Potassium 6.2 H* 5.3 H (3.5-5.1) mmol/L Chloride 104 107 (98-107) mmol/L Carbon Dioxide 16 L 15 L (22-30) mmol/L BUN 75 H 70 H (9-20) mg/dL Creatinine 2.61 H 2.60 H (0.66-1.25) mg/dL Glucose 257 H 188 H (74-99) mg/dL Calcium 8.8 7.9 L (8.4-10.2) mg/dL AST 18 25 (17-59) U/L ALT 10 9 (4-49) U/L Alkaline Phosphatase 131 H 117 (38-126) U/L Total Protein 7.4 6.8 (6.3-8.2) g/dL Albumin 4.3 3.8 (3.5-5.0) g/dL Calcium panel 03/12/20 03/12/20 Range/Units 01:43 08:44 Calcium 8.8 7.9 L (8.4-10.2) mg/dL Phosphorus 2.7 (2.5-4.5) mg/dL Albumin 4.3 3.8 (3.5-5.0) g/dL Pituitary panel 03/12/20 03/12/20 Range/Units 01:43 08:44 Sodium 134 L 137 (137-145) mmol/L Potassium 6.2 H* 5.3 H (3.5-5.1) mmol/L Chloride 104 107 (98-107) mmol/L Carbon Dioxide 16 L 15 L (22-30) mmol/L BUN 75 H 70 H (9-20) mg/dL Creatinine 2.61 H 2.60 H (0.66-1.25) mg/dL Glucose 257 H 188 H (74-99) mg/dL Calcium 8.8 7.9 L (8.4-10.2) mg/dL Adrenal panel 03/12/20 03/12/20 Range/Units 01:43 08:44 Sodium 134 L 137 (137-145) mmol/L Potassium 6.2 H* 5.3 H (3.5-5.1) mmol/L Chloride 104 107 (98-107) mmol/L Carbon Dioxide 16 L 15 L (22-30) mmol/L BUN 75 H 70 H (9-20) mg/dL Creatinine 2.61 H 2.60 H (0.66-1.25) mg/dL Glucose 257 H 188 H (74-99) mg/dL Calcium 8.8 7.9 L (8.4-10.2) mg/dL Total Bilirubin 0.9 1.1 (0.2-1.3) mg/dL AST 18 25 (17-59) U/L ALT 10 9 (4-49) U/L Alkaline Phosphatase 131 H 117 (38-126) U/L Total Protein 7.4 6.8 (6.3-8.2) g/dL Albumin 4.3 3.8 (3.5-5.0) g/dL Assessment and Plan Assessment: Impression: Febrile urinary tract infection. Urinary tract infection with sepsis. Neurogenic bladder with incomplete bladder emptying. History of kidney stones. Chronic renal insufficiency. Recommendations: Because of the persistence of the problem a computed tomography scan of abdomen and pelvis without contrast is appropriate to rule out stones and obstruction. Otherwise from a urologic standpoint leaving the catheter indwelling until the cultures back and the urinary tract infection is treated will be necessary. I will follow this patient with you.
[2020-03-12 13:31] LABS: Glucose,Whole Blood 231 mg/dL (75-99)
--- NOTE | 2020-03-12 13:34 | CONS ---
CONSULTATION REASON FOR CONSULT: Renal failure. 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 The patient was admitted to the hospital with complaints of shortness of breath. He also had fever. His creatinine was 2.61 mg/dL. His lactic acid was elevated. Patient received IV fluids about a liter. His serum potassium was 6.2 on admission. It is currently at 5.3. The patient denies use of any nonsteroidal anti-inflammatory agents recently. Blood pressure was also low with systolic in the 90s initially. At home patient was maintained on BHARGAVI inhibitors, although very small dose along with loop diuretics. PAST MEDICAL HISTORY: History of coronary artery disease, type 2 diabetes, hypertension, CKD stage 4 secondary to diabetic kidney disease, Parkinson's disease, osteoarthritis, history of neurogenic bladder with history of multiple urinary tract infections, nephrolithiasis. PAST SURGICAL HISTORY: Back surgery multiple times, cholecystectomy, cardiac catheterization, coronary stent placement, tonsillectomy, knee arthroplasty, carpal tunnel release, tympanoplasty, left ear surgery, shoulder surgery, cystoscopy, lithotripsy, removal of kidney stones, knee arthroscopies, shoulder surgeries. SOCIAL HISTORY: Negative for smoking, drug abuse or alcohol abuse. MEDICATIONS: Medications at home prior to admission zyloprim, Lasix, Requip, Neurontin, Zyrtec, Proscar, insulin, Lopressor, Flomax, Imdur, Nitrostat, Lipitor, aspirin, Sinemet, Drisdol, Zestril, Rocaltrol. ALLERGIES: Include BACLOFEN, MORPHINE, VANCOMYCIN, DILAUDID. PHYSICAL EXAMINATION: Patient is currently awake, comfortable, he is not in any acute distress although he is short of breath. Blood pressure was 120/66, heart rate 104 per minute, patient is febrile with a temp of 100.1. Examination of the heart S1, S2. Examination of the lungs, decreased breath sounds at bases. Abdomen is soft, nontender. Examination of lower extremities shows no significant edema. [facility] exam grossly intact. LAB: Show sodium 137, potassium 5.3, chloride 107, CO2 is 15, BUN 70, creatinine 2.6, hemoglobin 13.6 g/dL. ASSESSMENT: 1. Acute kidney injury on top of chronic kidney disease associated with underlying infection, mostly acute tubular necrosis, currently nonoliguric. Agree with Stapleton catheter placement. The patient is status post IV fluid bolus. Awaiting new chest x-ray results. Hold off on antihypertensive medications. I will add IV bicarb if the chest x-ray does not show significant congestive heart failure. 2. Fever with abnormal chest x-ray, being considered for COVID-19. 3. History of neurogenic bladder. 4. Urinary tract pyuria with history of repeated urinary tract infections. Urine culture currently pending. Maintained on empiric antibiotics. 5. Hyperkalemia associated with acute kidney injury, currently improved. Patient received a dose of Kayexalate. 6. Non-gap metabolic acidosis secondary renal failure, add oral sodium bicarb. PLAN: Maintain antibiotics. Follow up on the chest x-ray. Agree with Stapleton catheter placement. If there is evidence of CHF I will continue with his oral Lasix. Thank you for this consultation. Will continue to follow the patient with you during his hospitalization. MMODL / IJN: [id number] /
--- NOTE | 2020-03-12 13:47 | CT ---
EXAMINATION TYPE: CT abdomen pelvis wo con DATE OF EXAM: 03/12/2020 HISTORY: Stones, urine infection CT DLP: 1198.4 mGycm. Automated Exposure Control for Dose Reduction was Utilized. TECHNIQUE: CT scan of the abdomen and pelvis is performed without oral or IV contrast. COMPARISON: CT abdomen and pelvis July 18, 2019 FINDINGS: Within the limitations of a non-contrast study, the following observations are made. LUNG BASES: Persisting cardiomegaly with tiny bilateral pleural effusions and patchy bibasilar atelec tasis and/or infiltrate. Fairly severe three-vessel coronary artery calcification redemonstrated whic h is noted marked of underlying coronary artery disease. LIVER/GB: Interval cholecystectomy noted. PANCREAS: Mild to moderate generalized fat replaced atrophy again seen.. SPLEEN: No significant abnormality is seen. ADRENALS: No significant abnormality is seen. KIDNEYS: Cortical thinning and perinephric fat stranding consistent with product of chronic medical r enal disease redemonstrated. Persistent extrarenal pelvis on the right without calyceal dilatation. F oley catheter within decompressed bladder that has severe concentric wall thickening and mild surroun ding fat stranding. No definitive intraluminal calculi in the bladder. BOWEL: Normal-appearing appendix from base of cecum right lower quadrant. No suspicious small or larg e bowel dilatation. GENITAL ORGANS: Markedly enlarged prostate gland consistent with BPH. LYMPH NODES: No greater than 1cm abdominal or pelvic lymph nodes are appreciated. OSSEOUS STRUCTURES: Posterior decompression L5 level. Artificial disc material L5-S1 level. Right-marixa ed posterior fusion hardware. Multilevel spurring most prominent in the visualized thoracic spine whe re there are anterior and lateral bridging osteophytes. [id number] multilevel disc space narrow ing throughout the thoracolumbar spine. Moderate narrowing and mild to moderate spurring left greater than right hip joints. Spurring and narrowing of bilateral sacroiliac joints. OTHER: Incidental intramuscular roughly 4.8 x 1.8 cm fat density lesion likely right thigh lipoma axi al image 108 on current study. Mild calcified plaque of the aorta. IMPRESSION: Probable acute bladder infection or cystitis on background wall thickening related to out let obstruction from BPH. No intraluminal calculi in nondistended bladder on current study.
[2020-03-12] MEDS: INSULIN ASPART (NovoLOG) 100 UNIT/ML VIAL SQ SCH ×3 (14:29→21:47)
--- NOTE | 2020-03-12 14:43 | CONS ---
CONSULTATION PULMONARY/CRITICAL CARE CONSULTATION: DATE OF CONSULTATION: 03/12/2020 This is an 84-year-old gentleman who is seen in the emergency room by Dr. Coon. He was seen on March 12 at 1:27 a.m. in the morning. He apparently came in with a urinary tract infection and mental status changes as well as fever. We were asked to see him. We went over to the 5th floor [facility]. The patient was in obvious distress. He had some abdominal distention. He had urine that was full of pus. The patient apparently also was having fever. We thought it was best to move the patient to the ICU where he could be watched more carefully. He apparently does have an issue of recurrent urinary tract infections and apparently has some prostate issues that he is dealing with with Dr. Mar. Anyway, the patient had some unstable vital signs and we thought it was better that he be moved to the ICU. Dr. Coon, who saw the patient in the emergency department, admitted him with altered mental status, urinary tract infection, fever, failure of outpatient treatment, possible sepsis. The patient did have an elevated lactic acid. HOME MEDICATIONS: Reviewed. He is on Zyloprim, Flexeril, Lasix, Requip, Neurontin, Lortab, Zyrtec, Colace, Proscar, NovoLog FlexPen, Lopressor, Flomax, ProAir HFA, aspirin, Lipitor, Sinemet, Plavix, vitamin D2, insulin glargine, lisinopril, Augmentin, Rocaltrol, Imdur, nitroglycerin tablets, and MiraLAX. ALLERGIES: Include BACLOFEN, DILAUDID MORPHINE, AND VANCOMYCIN. PAST MEDICAL HISTORY: Positive for CAD, angina, diabetes mellitus, hyperlipidemia, hypertension, DJD, prostate disease, Parkinson's disease, gout, skin cancer, melanoma, history of kidney stones, bladder stone, migraine cephalgia, and constipation. The patient also has a history of MRSA infection to the right shoulder back in 2004. SURGICAL HISTORY: Include back surgery, cholecystectomy, ear surgery, heart catheterization with stent, tonsillectomy, bilateral knee replacement, bilateral carpal tunnel release, bilateral shoulder rotator cuff surgery, multiple back procedures x5 including laminectomies and fusions as well as a whole host of other procedures. In addition, as it relates to the genitourinary tract, he has had that lithotripsy and cystoscopy for stone removal. SOCIAL HISTORY: Significant in that he is a lifelong nonsmoker. Denies any alcohol or illicit drug use. FAMILY HISTORY: Positive for mother with cancer. Father with CAD and hypertension, a brother with cancer and a sister with cancer, COPD, and diabetes mellitus as well as hypertension. REVIEW OF SYSTEMS: CONSTITUTIONAL: Fever. NEUROLOGIC: Mental status changes. HEENT: Negative. CARDIOVASCULAR: Negative. PULMONARY: Negative. GI: Negative. : Purulent looking urine. RHEUMATOLOGIC: Negative. IMMUNOLOGIC: Negative. ENDOCRINOLOGIC: Negative. DERMATOLOGIC: Negative. PHYSICAL EXAMINATION: VITAL SIGNS: Current vital signs are reviewed. Temperature is 101.5 with a T-max of 103 degrees. Heart rate is anywhere from 104-128, respiratory rate 36, blood pressure 120/66, mean 84, 3 L saturation 92%. The patient does appear to be in some distress. He is mildly tachycardic and tachypneic. He does have some conversational dyspnea. HEENT: Examination is grossly unremarkable. Nasal O2 noted. NECK: Supple. Full range of motion. No adenopathy. CARDIOVASCULAR: Examination reveals tachycardia. Heart rate is regular. Heart rate about 110. LUNGS: Reveal mostly clear breath sounds. Breath sounds equal bilaterally. No distinct wheezes, rhonchi, or crackles. ABDOMEN: Mildly distended. Bowel sounds are noted. EXTREMITIES: Reveal some chronic erythema of the lower extremities. No edema or cyanosis or clubbing. SKIN: Without significant rash. NEUROLOGIC: Examination is brief but nonfocal. LABS: Reviewed. White count 6.4, hemoglobin 13.6, hematocrit 41.1, platelet count 138,000. PT/INR PTT all normal. Sodium 137, potassium 5.3, chloride is 100, CO2 is 15, anion gap 15, creatinine is 2.60. Calcium 7.9. CK 45. Urine is very suggestive of a urinary tract infection with large leukocyte esterase, large blood, nitrate positivity, many white blood cells and white blood cell clumps. A chest x-ray done today shows mild interstitial edema with cardiomegaly. A chest x-ray done earlier today shows some bibasilar atelectasis. Microbiology is currently pending or negative. Medications are reviewed. Currently, he is on a whole host of medications. In terms of antibiotics, the patient is on Zosyn. ASSESSMENT: 1. Urinary tract infection with urosepsis in a patient with chronic and recurrent acute cystitis. 2. Anion gap metabolic acidosis. 3. Acute kidney injury. 4. Thrombocytopenia. 5. Mild lactic acidemia. 6. History of coronary artery disease. 7. History of skin cancer. 8. History of melanoma. 9. Angina pectoris. 10.Diabetes mellitus. 11.Hyperlipidemia. 12.Hypertension. 13.Degenerative joint disease. 14.Benign prostatic hypertrophy. 15.Parkinson's disease. 16.History of gout. 17.History of migraine cephalgia. 18.History of chronic constipation. 19.History of kidney stone. PLAN: Currently, the patient will be transferred to the ICU. The patient will get fluid resuscitation. The patient is on good antibiotics in form of Zosyn. We will continue to follow. We hope the patient does not deteriorate. The patient has been seen by Dr. Valentin Mar. X-rays are reviewed. Additional recommendations and suggestions are forthcoming. Labs are all reviewed. We will await the urine Gram stain and culture. MMODL / IJN: [id number] / MTDD
[2020-03-12 15:01] LABS: Albumin 3.3 g/dL (3.5-5.0); Calcium 7.5 mg/dL (8.4-10.2); Total Bilirubin 1.3 mg/dL (0.2-1.3); Total Protein 6.1 g/dL (6.3-8.2)
[2020-03-12] MEDS ORDERED: SODIUM CHLORIDE 0.9% 1,000 ML IV ONE (15:03)
[2020-03-12 15:17] LABS: Potassium 6.6 mmol/L (3.5-5.1)
[2020-03-12] MEDS: FUROSEMIDE 40 MG TAB PO SCH (15:23)
--- NOTE | 2020-03-12 16:12 | P.HPIM ---
History of Present Illness H&P Date: 03/12/20 Chief Complaint: Abdominal pain fever or dysuria This is an 84-year-old male patient of Dr. 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 Originally the plan was to place a stent in the OM branch and the circumflex. 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 Gloria recently secondary to ongoing back pain, and dysuria, he has troubles of these for the past 2 months, with 2 oral antibiotics for urinary tract infection, patient gets better and then gets sick again, this is related to urinary frequency, dysuria and fever. Patient denies any nausea, patient denies any instrumentation of his prostate, he said that his Enlarged prostate, unknown PSA level, follows with Dr. Mar. Patient does not require any cutler prior to admission.. He also has chronic kidney disease, follows by Dr. Diaz. He is now admitted for acute pyelonephr itis with sepsis, IV Zosyn antibiotics, he required fluid resuscitation secondary to hypotension and lactic acidosis, he was given bolus of 500 mL in the emergency room with a subsequent rate of 130 mL an hour. Overnight one the hospital, he subsequently went into respiratory distress, chest x-ray was ordered showing pulmonary edema, patient's IV fluid was changed to KVO, as he was very tachypneic, with respiratory rate of 40, IV Lasix 40 mg 1, with 40 mg every 12 hours over the next 2 doses. Review of Systems Constitutional: Reports as per HPI, Reports anorexia, Denies chills, Denies chronic headaches, Denies chronic pain, Denies daytime sleepiness, Denies fatigue, Denies fever, Denies lethargy, Denies malaise, Denies night sweats, Denies poor appetite, Denies sweats, Denies weakness, Denies weight gain, Denies weight loss Ears, nose, mouth and throat: Reports as per HPI Cardiovascular: Reports as per HPI, Reports lightheadedness, Denies chest pain, Denies claudication, Denies decreased exercise tolerance, Denies dyspnea on exertion, Denies edema, Denies high blood pressure, Denies irregular heart beat, Denies leg edema, Denies orthopnea, Denies palpitations, Denies paroxysmal nocturnal dyspnea, Denies phlebitis, Denies rapid heart beat, Denies shortness of breath, Denies syncope Respiratory: Reports as per HPI Gastrointestinal: Reports abdominal pain, Denies as per HPI, Denies belching, Denies bloating, Denies BRBPR, Denies change in bowel habits, Denies coffee ground emesis, Denies constipation, Denies diarrhea, Denies dyspepsia, Denies early satiety, Denies excessive gas, Denies heartburn, Denies hematemesis, Denies hematochezia, Denies indigestion, Denies jaundice, Denies lactose intolerance, Denies loss of appetite, Denies melena, Denies nausea, Denies vomiting Genitourinary: Reports as per HPI, Reports dysuria, Reports urinary frequency, Reports urinary hesitancy Musculoskeletal: Reports leg numbness/tingling, Reports limitation of motion Integumentary: Reports as per HPI, Denies acne, Denies boils, Denies brittle nails, Denies change in hair/nails, Denies color changes, Denies darkening of skin, Denies depigmentation, Denies dryness, Denies foot/leg ulcers, Denies growths, Denies hirsutism, Denies lesions, Denies onychomycosis, Denies pruritus, Denies rash, Denies sores, Denies striae, Denies unusual bruising, Denies wounds Neurological: Reports as per HPI, Denies aphasia, Denies ataxia, Denies balance difficulties, Denies burning pain, Denies change in mentation, Denies change in smell/taste, Denies change in speech, Denies confusion, Denies convulsions, Denies double vision, Denies gait dysfunction, Denies head injury, Denies headaches, Denies hearing difficulties, Denies lack of coordination, Denies loss of vision, Denies memory loss, Denies migraines, Denies motor disturbance, Denies numbness, Denies paralysis, Denies paresthesias, Denies seizures, Denies sensory deficit, Denies spasticity, Denies syncope, Denies tic, Denies tingling, Denies transient paralysis, Denies tremors, Denies vertigo, Denies weakness, Denies visual changes Psychiatric: Reports as per HPI, Denies anhedonia, Denies anxiety, Denies anxiety attacks, Denies change in appetite, Denies change in libido, Denies change in sleep habits, Denies confusion, Denies depression, Denies difficulty concentrating, Denies disorientation, Denies hallucinations, Denies hopelessness, Denies hypersomnia, Denies insomnia, Denies irritability, Denies memory loss, Denies mood swings, Denies paranoia, Denies sadness/tearfulness, Denies sleep disturbances, Denies suicidal ideation Endocrine: Reports as per HPI, Denies cold intolerance, Denies deepening of the voice, Denies excessive sweating, Denies excessive thirst, Denies fatigue, Denies flushing, Denies heat intolerance, Denies high blood sugars, Denies increase in ring/shoe/hat size, Denies low blood sugars, Denies nocturia, Denies palpitations, Denies polydipsia, Denies polyphagia, Denies polyuria, Denies proptosis, Denies recent glucocorticoid use, Denies thyroid mass, Denies weight change Hematologic/Lymphatic: Reports as per HPI, Denies easy bleeding, Denies easy bruising, Denies lymphadenopathy, Denies lymphedema, Denies thrombophilia Allergic/Immunologic: Reports as per HPI, Denies allergic rhinitis, Denies anaphylaxis, Denies angioedema, Denies gluten intolerance, Denies persistent infections, Denies seasonal allergies, Denies urticaria, Denies wheezing Past Medical History Past Medical History: Coronary Artery Disease (CAD), Cancer, Chest Pain / Angina, Diabetes Mellitus, Hyperlipidemia, Hypertension, Osteoarthritis (OA), Prostate Disorder, Renal Disease Additional Past Medical History / Comment(s): parkinson's, hx gout, hx basal cell carcinoma on head, melanoma lt shoulder, hx kidney stones, currently 2 bladder stones, hx migraines, constipation, History of Any Multi-Drug Resistant Organisms: MRSA Date of last positivie culture/infection: 2004 MDRO Source:: rt shoulder Past Surgical History: Back Surgery, Cholecystectomy, Ear Surgery, Heart Catheterization, Heart Catheterization With Stent, Joint Replacement, Orthopedic Surgery, Tonsillectomy Additional Past Surgical History / Comment(s): cody knee replacement, cody. carpal tunnel release, cody shoulder rotator cuff repair, back surgery x5, (laminectomy, laminectomy with fusion, laminectomy and partial removal of fusion x2) lumbar fusionL4,L5, lt ear surgery x3 with replacement malleus/incus/stapes, revision of tympanoplasty, wide excision melanoma left shoulder, I&D rt thumb, lithotripsy,cystoscopy with kidney stone retrieved, cody cataracts, face and left ear multiple lesion removal, oral surgery, one cardiac stent, cody knee arthroscopy, debridement of rt shoulder x 2 with partial closure of rt shoulder, Past Anesthesia/Blood Transfusion Reactions: Family History of Problems w/ Anesthesia Additional Past Anesthesia/Blood Transfusion Reaction / Comment(s): hx vertigo, brother had issues-not sure what it was Date of Last Stent Placement:: 06/2018 Past Psychological History: No Psychological Hx Reported Smoking Status: Never smoker Past Alcohol Use History: None Reported Past Drug Use History: None Reported - Past Family History Mother Family Medical History: Cancer Father Family Medical History: Coronary Artery Disease (CAD), Hypertension Brother(s) Family Medical History: Cancer Sister(s) Family Medical History: Cancer, COPD, Diabetes Mellitus, Hypertension Medications and Allergies Home Medications Medication Instructions Recorded Confirmed Type Allopurinol [Zyloprim] 100 mg PO W/SUPPER 06/02/16 03/12/20 History Cyclobenzaprine [Flexeril] 10 mg PO HS 06/02/16 03/12/20 History Furosemide [Lasix] 20 mg PO BID 06/02/16 03/12/20 History rOPINIRole HCL [Requip] 0.5 mg PO BID 06/02/16 03/12/20 History Gabapentin [Neurontin] 600 mg PO BID 10/26/16 03/12/20 History Cetirizine HCl [Zyrtec] 10 mg PO DAILY 05/26/18 03/12/20 History Finasteride [Proscar] 5 mg PO W/SUPPER 05/26/18 03/12/20 History Insulin Aspart [NovoLOG Flexpen] See Protocol SQ AC-TID PRN 05/26/18 03/12/20 History Metoprolol Tartrate [Lopressor] 25 mg PO BID 05/26/18 03/12/20 History Tamsulosin HCl [Flomax] 0.4 mg PO DAILY 05/26/18 03/12/20 History Isosorbide Mononitrate ER [Imdur] 30 mg PO DAILY #30 tab.er.24h 06/04/18 03/12/20 Rx Nitroglycerin Sl Tabs [Nitrostat] 0.4 mg SUBLINGUAL Q5M PRN #25 tab 06/04/18 03/12/20 Rx Aspirin 81 mg PO DAILY 07/18/19 03/12/20 History Atorvastatin [Lipitor] 40 mg PO W/SUPPER 07/18/19 03/12/20 History Carbidopa-Levodopa 25-100 mg 1 tab PO TID 07/18/19 03/12/20 History [Sinemet 25-100 mg] Ergocalciferol [Vitamin D2 50,000 unit PO Q14D 07/18/19 03/12/20 History (DRISDOL)] Insulin Glargine,Hum.rec.anlog 50 units SQ DAILY 07/18/19 03/12/20 History [Toujeo Solostar] Polyethylene Glycol 3350 [Miralax] 17 gm PO DAILY #0 powd.pack 07/21/19 03/12/20 Rx Lisinopril [Zestril] 2.5 mg PO HS 08/10/19 03/12/20 History Calcitriol [Rocaltrol] 0.25 mg PO Q7D 09/28/19 03/12/20 History Hydrocodone/Acetaminophen [[place] 1 tab PO Q6H PRN 03/12/20 03/12/20 History 10-325] Allergies Allergy/AdvReac Type Severity Reaction Status Date / Time baclofen AdvReac Severe Nausea & Verified 03/12/20 09:09 Vomiting hydromorphone HCl AdvReac Nausea & Verified 03/12/20 09:09 [From Dilaudid] Vomiting morphine AdvReac Hallucinati Verified 03/12/20 09:09 ons vancomycin AdvReac Chills, Verified 03/12/20 09:09 Sweating, Did not feel well Physical Exam Vitals: Vital Signs Temp Pulse Pulse Resp BP BP Pulse Ox 03/12/20 11:55 101.1 F H 104 H 36 H 120/66 91 L 03/12/20 11:12 98.6 F 128 H 44 H 96/63 92 L 05/30/20 08:00 36 H 03/12/20 05:29 98.2 F 60 16 119/65 95 03/12/20 03:04 100.5 F H 78 18 124/78 100 03/12/20 01:28 103 F H 103 H 18 131/73 93 L Intake and Output 03/12/20 03/12/20 03/12/20 06:59 14:59 22:59 Output Total 200 Balance -200 Output: Urine 200 Other: Voiding Method Indwelling Catheter Weight 99.79 kg 107.2 kg - Constitutional General appearance: cooperative, no acute distress - EENT Eyes: anicteric sclerae, PERRLA, dentition normal - Neck Neck: normal ROM - Respiratory Respiratory: bilateral: CTA, negative: diminished, dullness - Cardiovascular Rhythm: regular Heart sounds: normal: S1, S2 - Gastrointestinal General gastrointestinal: normal bowel sounds, scaphoid, tenderness (Right flank) - Integumentary Edema left leg, chronic sleeve in the left leg, below the knee Integumentary: decreased turgor, normal - Musculoskeletal Musculoskeletal: gait normal, strength equal bilaterally - Psychiatric Psychiatric: A&O x's 3, appropriate affect, intact judgment & insight Results CBC & Chem 7: 03/12/20 08:44 03/12/20 08:44 Labs: Abnormal Lab Results - Last 24 Hours (Table) 03/12/20 03/12/20 03/12/20 Range/Units 01:42 01:43 01:43 Plt Count 146 L (150-450) k/uL Lymphocytes # 0.4 L (1.0-4.8) k/uL Sodium 134 L (137-145) mmol/L Potassium 6.2 H* (3.5-5.1) mmol/L Carbon Dioxide 16 L (22-30) mmol/L BUN 75 H (9-20) mg/dL Creatinine 2.61 H (0.66-1.25) mg/dL Glucose 257 H (74-99) mg/dL POC Glucose (mg/dL) 261 H (75-99) mg/dL Plasma Lactic Acid Eladio (0.7-2.0) mmol/L Calcium (8.4-10.2) mg/dL Alkaline Phosphatase 131 H (38-126) U/L Creatine Kinase 45 L (55-170) U/L Total Protein (6.3-8.2) g/dL Albumin (3.5-5.0) g/dL Urine Protein (Negative) Urine Glucose (UA) (Negative) Urine Blood (Negative) Ur Leukocyte Esterase (Negative) Urine RBC (0-5) /hpf Urine WBC (0-5) /hpf Urine WBC Clumps (None) /hpf Urine Bacteria (None) /hpf Urine Mucus (None) /hpf 03/12/20 03/12/20 03/12/20 Range/Units 01:43 02:12 02:30 Plt Count (150-450) k/uL Lymphocytes # (1.0-4.8) k/uL Sodium 132 L (137-145) mmol/L Potassium 6.6 H* (3.5-5.1) mmol/L Carbon Dioxide 17 L (22-30) mmol/L BUN 73 H (9-20) mg/dL Creatinine 2.73 H (0.66-1.25) mg/dL Glucose 217 H (74-99) mg/dL POC Glucose (mg/dL) (75-99) mg/dL Plasma Lactic Acid Eladio 2.3 H* (0.7-2.0) mmol/L Calcium 7.5 L (8.4-10.2) mg/dL Alkaline Phosphatase (38-126) U/L Creatine Kinase (55-170) U/L Total Protein 6.1 L (6.3-8.2) g/dL Albumin 3.3 L (3.5-5.0) g/dL Urine Protein 1+ H (Negative) Urine Glucose (UA) 2+ H (Negative) Urine Blood Large H (Negative) Ur Leukocyte Esterase Large H (Negative) Urine RBC 179 H (0-5) /hpf Urine WBC >182 H (0-5) /hpf Urine WBC Clumps Many H (None) /hpf Urine Bacteria Many H (None) /hpf Urine Mucus Rare H (None) /hpf 03/12/20 03/12/20 03/12/20 Range/Units 07:07 08:44 08:44 Plt Count 138 L (150-450) k/uL Lymphocytes # 0.7 L (1.0-4.8) k/uL Sodium (137-145) mmol/L Potassium 5.3 H (3.5-5.1) mmol/L Carbon Dioxide 15 L (22-30) mmol/L BUN 70 H (9-20) mg/dL Creatinine 2.60 H (0.66-1.25) mg/dL Glucose 188 H (74-99) mg/dL POC Glucose (mg/dL) 216 H (75-99) mg/dL Plasma Lactic Acid Eladio (0.7-2.0) mmol/L Calcium 7.9 L (8.4-10.2) mg/dL Alkaline Phosphatase (38-126) U/L Creatine Kinase (55-170) U/L Total Protein (6.3-8.2) g/dL Albumin (3.5-5.0) g/dL Urine Protein (Negative) Urine Glucose (UA) (Negative) Urine Blood (Negative) Ur Leukocyte Esterase (Negative) Urine RBC (0-5) /hpf Urine WBC (0-5) /hpf Urine WBC Clumps (None) /hpf Urine Bacteria (None) /hpf Urine Mucus (None) /hpf 03/12/20 03/12/20 Range/Units 11:15 13:29 Plt Count (150-450) k/uL Lymphocytes # (1.0-4.8) k/uL Sodium (137-145) mmol/L Potassium (3.5-5.1) mmol/L Carbon Dioxide (22-30) mmol/L BUN (9-20) mg/dL Creatinine (0.66-1.25) mg/dL Glucose (74-99) mg/dL POC Glucose (mg/dL) 234 H 231 H (75-99) mg/dL Plasma Lactic Acid Eladio (0.7-2.0) mmol/L Calcium (8.4-10.2) mg/dL Alkaline Phosphatase (38-126) U/L Creatine Kinase (55-170) U/L Total Protein (6.3-8.2) g/dL Albumin (3.5-5.0) g/dL Urine Protein (Negative) Urine Glucose (UA) (Negative) Urine Blood (Negative) Ur Leukocyte Esterase (Negative) Urine RBC (0-5) /hpf Urine WBC (0-5) /hpf Urine WBC Clumps (None) /hpf Urine Bacteria (None) /hpf Urine Mucus (None) /hpf Microbiology - Last 24 Hours (Table) 03/12/20 02:12 Urine Culture - Preliminary Urine,Voided Laboratory Results WBC 6.4 k/uL (3.8-10.6) 03/12/20 08:44 RBC 4.34 m/uL (4.30-5.90) 03/12/20 08:44 Hgb 13.6 gm/dL (13.0-17.5) 03/12/20 08:44 Hct 41.1 % (39.0-53.0) 03/12/20 08:44 MCV 94.7 fL (80.0-100.0) 03/12/20 08:44 MCH 31.4 pg (25.0-35.0) 03/12/20 08:44 MCHC 33.1 g/dL (31.0-37.0) 03/12/20 08:44 RDW 14.4 % (11.5-15.5) 03/12/20 08:44 Plt Count 138 k/uL (150-450) L 03/12/20 08:44 Neutrophils % 83 % 03/12/20 08:44 Lymphocytes % 11 % 03/12/20 08:44 Monocytes % 4 % 03/12/20 08:44 Eosinophils % 1 % 03/12/20 08:44 Basophils % 1 % 03/12/20 08:44 Neutrophils # 5.3 k/uL (1.3-7.7) 03/12/20 08:44 Lymphocytes # 0.7 k/uL (1.0-4.8) L 03/12/20 08:44 Monocytes # 0.2 k/uL (0-1.0) 03/12/20 08:44 Eosinophils # 0.1 k/uL (0-0.7) 03/12/20 08:44 Basophils # 0.0 k/uL (0-0.2) 03/12/20 08:44 PT 10.3 sec (9.0-12.0) 03/12/20 01:43 INR 1.0 (<1.2) 03/12/20 01:43 APTT 23.8 sec (22.0-30.0) 03/12/20 01:43 Sodium 137 mmol/L (137-145) 03/12/20 08:44 Potassium 5.3 mmol/L (3.5-5.1) H 03/12/20 08:44 Chloride 107 mmol/L (98-107) 03/12/20 08:44 Carbon Dioxide 15 mmol/L (22-30) L 03/12/20 08:44 Anion Gap 15 mmol/L 03/12/20 08:44 BUN 70 mg/dL (9-20) H 03/12/20 08:44 Creatinine 2.60 mg/dL (0.66-1.25) H 03/12/20 08:44 Est GFR (CKD-EPI)AfAm 25 (>60 ml/min/1.73 sqM) 03/12/20 08:44 Est GFR (CKD-EPI)NonAf 22 (>60 ml/min/1.73 sqM) 03/12/20 08:44 Glucose 188 mg/dL (74-99) H 03/12/20 08:44 POC Glucose (mg/dL) 231 mg/dL (75-99) H 03/12/20 13:29 POC Glu Network Support ID Fatuma Sanchez 03/12/20 13:29 Lactic Ac Sepsis Rflx Y 03/12/20 02:26 Plasma Lactic Acid Eladio 1.1 mmol/L (0.7-2.0) 03/12/20 05:44 Calcium 7.9 mg/dL (8.4-10.2) L 03/12/20 08:44 Phosphorus 2.7 mg/dL (2.5-4.5) 03/12/20 01:43 Magnesium 1.8 mg/dL (1.6-2.3) 03/12/20 01:43 Total Bilirubin 1.1 mg/dL (0.2-1.3) 03/12/20 08:44 AST 25 U/L (17-59) 03/12/20 08:44 ALT 9 U/L (4-49) 03/12/20 08:44 Alkaline Phosphatase 117 U/L (38-126) 03/12/20 08:44 Creatine Kinase 45 U/L (55-170) L 03/12/20 01:43 Troponin I 0.014 ng/mL (0.000-0.034) 03/12/20 01:43 Total Protein 6.8 g/dL (6.3-8.2) 03/12/20 08:44 Albumin 3.8 g/dL (3.5-5.0) 03/12/20 08:44 Urine Color Yellow 03/12/20 02:12 Urine Appearance Turbid (Clear) 03/12/20 02:12 Urine pH 5.5 (5.0-8.0) 03/12/20 02:[address] 1.017 (1.001-1.035) 03/12/20 02:12 Urine Protein 1+ (Negative) H 03/12/20 02:12 Urine Glucose (UA) 2+ (Negative) H 03/12/20 02:12 Urine Ketones Negative (Negative) 03/12/20 02:12 Urine Blood Large (Negative) H 03/12/20 02:12 Urine Nitrite Positive (Negative) 03/12/20 02:12 Urine Bilirubin Negative (Negative) 03/12/20 02:12 Urine Urobilinogen <2.0 mg/dL (<2.0) 03/12/20 02:12 Ur Leukocyte Esterase Large (Negative) H 03/12/20 02:12 Urine RBC 179 /hpf (0-5) H 03/12/20 02:12 Urine WBC >182 /hpf (0-5) H 03/12/20 02:12 Urine WBC Clumps Many /hpf (None) H 03/12/20 02:12 Urine Bacteria Many /hpf (None) H 03/12/20 02:12 Urine Mucus Rare /hpf (None) H 03/12/20 02:12 Thrombosis Risk Factor Assmnt - DVT/VTE Prophylaxis DVT/VTE Prophylaxis: Pharmacologic Prophylaxis ordered, Mechanical Prophylaxis ordered - Choose All That Apply Any of the Below Risk Factors Present?: Yes Each Factor Represents 1 point: Obesity (BMI >25), Sepsis (< 1month), Swollen legs (current) Each Risk Factor Represents 3 Points: Age 75 years or older Thrombosis Risk Factor Assessment Total Risk Factor Score: 6 Thrombosis Risk Factor Assessment Level: High Risk Assessment and Plan Plan: 1. Sepsis Right lower quadrant abdominal pain with pyelonephritis, acute kidney failure, failed outpatient treatments, ongoing problems for the past 2 months. Urine cultures have been sent, consult with Dr. Fiore for suspected postobstructive uropathy with urinary retention, history of kidney stones. Ultrasound of the kidneys to be done to evaluate for hydronephrosis, folic cat heter is placed by urology, patient would need infectious disease for recurrent urinary tract infections, previous cultures were noted from May 2016 showing Enterobacter erogenous it has some resistance to cefazolin and cefoxitin Augmentin Unasyn and nitrofurantoin cefuroxime. new culture and sensitivity will be done. Blood cultures, consult Dr. Esquivel secondary to recurrent chronic nature of this illness failure of 2 previous antibiotics over the past 2 months 2. Acute diastolic failure, with acute diastolic CHF exacerbation against fluid overload, patient was receiving IV fluids at 130 mL an hour for lactic acidosis, and dehydration, patient did not tolerate these fluid resuscitation, and was discontinued, patient was given IV Lasix 40 mg every 12 hours, echocardiogram, proBNP, patient was transferred to ICU secondary to acute respiratory distress, consult was made with Dr. Nichols pulmonary. Chest x-ray ordered Cutler catheter for intensive care management of I's and O's 3. Acute pyelonephritis, recurrent, suspicious bladder outlet obstruction from BPH, this would be treated with IV antibiotics, 4. BPH with lower tract symptomatology, sees Dr. Fiore as an outpatient, no p rior surgery for these unknown PSA levels, continue Flomax 0.4 mg daily 4. History of coronary artery disease. Continue aspirin 81 mg daily, Plavix 75 mg daily, atorvastatin, Lopressor, Imdur 30 mg daily. 5. Diabetes mellitus type 2 insulin requiring. Continue Lantus 50 units daily , NovoLog scale, NovoLog scheduled. Continue NovoLog scale 6. Chronic kidney disease stage IV. Patient is at baseline. Avoid nephrotoxic agents. Consult with Dr. Diaz, 7. Parkinson's disease. Continue Sinemet one 3 times daily. 8. History of kidney stones, stable. Urinalysis shows no hematuria. 9. DVT prophylaxis. Heparin subcu. 10. GI prophylaxis. Protonix. 11. Hyperlipidemia on Lipitor 40 12. hyperuricemia on allopurinol 100 mg daily 13. CAD, no current symptoms, on maintenance Lopressor and Zestril 2.5 Imdur 30, Patient will be admitted to the hospital for a minimum of 2 night stay.
--- NOTE | 2020-03-12 18:11 | P.PN ---
Progress Note - Text Progress Note Date: 03/12/20 [address] patient had a ct scan that didnt show hydro or stones. Nothing immediate urologicaly needs to be done. I will follow this patient.
[2020-03-12 18:12] LABS: Glucose,Whole Blood 123 mg/dL (75-99)
[2020-03-12] MEDS: ATORVASTATIN 40 MG TAB PO SCH (18:16)
[2020-03-12] MEDS: ALLOPURINOL 100 MG TAB PO SCH (18:17)
[2020-03-12] MEDS: FINASTERIDE 5 MG TAB PO SCH (18:20)
[2020-03-12] MEDS ORDERED: DEXTROSE 50% SYRINGE 50 ML IVP STA (20:09)
[2020-03-12] MEDS ORDERED: SODIUM CHLORIDE 0.9% 500 ML 500 ML IV ONE (20:09)
[2020-03-12] MEDS ORDERED: INSULIN REGULAR 100 UNIT/ML VIAL IV ONE (20:09)
[2020-03-12] MEDS: ALBUTEROL HFA INHALER INHALATION PRN (20:12)
[2020-03-12] MEDS ORDERED: SODIUM BICARBONATE TAB 650 MG TAB PO SCH (21:00)
[2020-03-12] MEDS: SODIUM CHLORIDE 0.45% 1,000 ML with SODIUM BICARB (1 MEQ/ML) 100 ML IV SCH ×2 (21:30)
[2020-03-12] MEDS: NOREPINEPHRINE 4 MG in SODIUM CHLORIDE 0.9% 250 ML IV SCH (21:30)
[2020-03-12] MEDS: CYCLOBENZAPRINE 5 MG TAB PO SCH (21:35)
[2020-03-12 21:47] LABS: Glucose,Whole Blood 133 mg/dL (75-99)
[2020-03-12 21:52] LABS: Hemoglobin A1C 7.6 % (4.0-6.0)
--- NOTE | 2020-03-13 00:48 | P.CONS ---
History of Present Illness - Reason for Consult Consult date: 03/12/20 sepsis Requesting physician: Misty Delarosa - Chief Complaint fever and dysuria x 1 day - History of Present Illness Patient is 84-year-old male with a past medical history significant for neurogenic bladder and history of recurrent urinary tract infection presente d to the ER with chief complaints of fever of 103 F patient seem to have problem with difficulty urination and did have some dysuria some nausea but no vomiting no chest pain shortness of breath or cough no diarrhea with these symptom the patient was evaluated by ER physician on arrival to the ER patient did have a fever of 103 F patient was tachycardic with heart rate of 103 did have a positive UA the white count was not significantly elevated patient was hypotensive requiring fluid boluses and has been admitted to ICU he was started on Zosyn infectious was consulted for further management of antibiotic therapy. Review of Systems Positive point has been mentioned in HPI rest of the systems are negative Past Medical History Past Medical History: Coronary Artery Disease (CAD), Cancer, Chest Pain / Angina, Diabetes Mellitus, Hyperlipidemia, Hypertension, Osteoarthritis (OA), Prostate Disorder, Renal Disease Additional Past Medical History / Comment(s): parkinson's, hx gout, hx basal cell carcinoma on head, melanoma lt shoulder, hx kidney stones, currently 2 bladder stones, hx migraines, constipation, History of Any Multi-Drug Resistant Organisms: MRSA Year Discovered:: 2004 MDRO Source:: rt shoulder Past Surgical History: Back Surgery, Cholecystectomy, Ear Surgery, Heart Catheterization, Heart Catheterization With Stent, Joint Replacement, Orthopedic Surgery, Tonsillectomy Additional Past Surgical History / Comment(s): cody knee replacement, cody. carpal tunnel release, cody shoulder rotator cuff repair, back surgery x5, (laminectomy, laminectomy with fusion, laminectomy and partial removal of fusion x2) lumbar fusionL4,L5, lt ear surgery x3 with replacement malleus/incus/stapes, revision of tympanoplasty, wide excision melanoma left shoulder, I&D rt thumb, lithotripsy,cystoscopy with kidney stone retrieved, cody cataracts, face and left ear multiple lesion removal, oral surgery, one cardiac stent, cody knee arthroscopy, debridement of rt shoulder x 2 with partial closure of rt shoulder, Past Anesthesia/Blood Transfusion Reactions: Family History of Problems w/ Anesthesia Additional Past Anesthesia/Blood Transfusion Reaction / Comm: hx vertigo, brother had issues-not sure what it was Date of Last Stent Placement:: 06/2018 Past Psychological History: No Psychological Hx Reported Smoking Status: Never smoker Past Alcohol Use History: None Reported Past Drug Use History: None Reported - Past Family History Mother Family Medical History: Cancer Father Family Medical History: Coronary Artery Disease (CAD), Hypertension Brother(s) Family Medical History: Cancer Sister(s) Family Medical History: Cancer, COPD, Diabetes Mellitus, Hypertension Medications and Allergies Home Medications Medication Instructions Recorded Confirmed Type Allopurinol [Zyloprim] 100 mg PO W/SUPPER 06/02/16 03/12/20 History Cyclobenzaprine [Flexeril] 10 mg PO HS 06/02/16 03/12/20 History Furosemide [Lasix] 20 mg PO BID 06/02/16 03/12/20 History rOPINIRole HCL [Requip] 0.5 mg PO BID 06/02/16 03/12/20 History Gabapentin [Neurontin] 600 mg PO BID 10/26/16 03/12/20 History Cetirizine HCl [Zyrtec] 10 mg PO DAILY 05/26/18 03/12/20 History Finasteride [Proscar] 5 mg PO W/SUPPER 05/26/18 03/12/20 History Insulin Aspart [NovoLOG Flexpen] See Protocol SQ AC-TID PRN 05/26/18 03/12/20 History Metoprolol Tartrate [Lopressor] 25 mg PO BID 05/26/18 03/12/20 History Tamsulosin HCl [Flomax] 0.4 mg PO DAILY 05/26/18 03/12/20 History Isosorbide Mononitrate ER [Imdur] 30 mg PO DAILY #30 tab.er.24h 06/04/18 03/12/20 Rx Nitroglycerin Sl Tabs [Nitrostat] 0.4 mg SUBLINGUAL Q5M PRN #25 tab 06/04/18 03/12/20 Rx Aspirin 81 mg PO DAILY 07/18/19 03/12/20 History Atorvastatin [Lipitor] 40 mg PO W/SUPPER 07/18/19 03/12/20 History Carbidopa-Levodopa 25-100 mg 1 tab PO TID 07/18/19 03/12/20 History [Sinemet 25-100 mg] Ergocalciferol [Vitamin D2 50,000 unit PO Q14D 07/18/19 03/12/20 History (DRISDOL)] Insulin Glargine,Hum.rec.anlog 50 units SQ DAILY 07/18/19 03/12/20 History [Charlotte Wanostcesar] Polyethylene Glycol 3350 [Miralax] 17 gm PO DAILY #0 powd.pack 07/21/19 03/12/20 Rx Lisinopril [Zestril] 2.5 mg PO HS 08/10/19 03/12/20 History Calcitriol [Rocaltrol] 0.25 mg PO Q7D 09/28/19 03/12/20 History Hydrocodone/Acetaminophen [[place] 1 tab PO Q6H PRN 03/12/20 03/12/20 History 10-325] Allergies Allergy/AdvReac Type Severity Reaction Status Date / Time baclofen AdvReac Severe Nausea & Verified 03/12/20 09:09 Vomiting hydromorphone HCl AdvReac Nausea & Verified 03/12/20 09:09 [From Dilaudid] Vomiting morphine AdvReac Hallucinati Verified 03/12/20 09:09 ons vancomycin AdvReac Chills, Verified 03/12/20 09:09 Sweating, Did not feel well Physical Exam Vitals: Vital Signs Temp Pulse Pulse Resp BP BP Pulse Ox 03/12/20 23:00 64 15 109/62 94 L 03/12/20 22:30 67 15 112/61 95 03/12/20 22:00 69 19 125/62 95 03/12/20 21:30 71 17 114/51 95 03/12/20 21:00 73 17 114/51 96 03/12/20 20:30 70 18 104/54 97 03/12/20 20:00 98.7 F 69 18 97/61 95 03/12/20 19:30 66 15 80/48 96 03/12/20 19:00 67 15 88/50 96 03/12/20 18:30 70 16 86/46 94 L 03/12/20 18:00 70 18 87/49 95 03/12/20 17:30 71 17 88/55 95 03/12/20 17:00 73 19 87/49 95 03/12/20 16:30 72 17 83/48 93 L 03/12/20 16:00 98.2 F 75 22 82/47 93 L 03/12/20 15:30 75 25 H 83/49 93 L 03/12/20 15:00 86 31 H 79/54 94 L 03/12/20 14:30 81 29 H 85/51 93 L 03/12/20 11:55 101.1 F H 104 H 36 H 120/66 91 L 03/12/20 11:12 98.6 F 128 H 44 H 96/63 92 L 03/12/20 08:00 36 H 03/12/20 05:29 98.2 F 60 16 119/65 95 03/12/20 03:04 100.5 F H 78 18 124/78 100 03/12/20 01:28 103 F H 103 H 18 131/73 93 L Intake and Output 03/12/20 03/12/20 03/13/20 14:59 22:59 06:59 Intake Total 1780 50 Output Total 875 100 Balance 905 -50 Intake: IV 1080 Sodium Chloride 0.9% 1, 80 000 ml @ 20 mls/hr IV . Q24H RUPERTO Rx#:[id number] Sodium Chloride 0.9% 1, 1000 000 ml @ 999 mls/hr IV . Q1H1M ONE Rx#:[id number] Intake, IV Titration 700 50 Amount Piperacillin-Tazobactam 3 100 .375 gm In Sodium Chloride 0.9% 100 ml @ 25 mls/hr IVPB Q8H RUPERTO Rx#: [id number] Sodium Chloride 0.45% 1, 100 50 000 ml @ 50 mls/hr IV . Q22H RUPERTO with Sodium Bicarb (1 Meq/ml) 100 ml Rx#:[id number] Sodium Chloride 0.9% 500 500 ml 500 ml @ 999 mls/hr IV .Q31M ONE Rx#:[id number] Output: Urine 875 100 Other: Voiding Method Indwelling Catheter Indwelling Catheter Weight 107.2 kg GENERAL DESCRIPTION: Elderly male lying in bed, no distress. No tachypnea or acc essory muscle of respiration use. HEENT: Shows Pallor , no scleral icterus. Oral mucous membrane is dry. NECK: Trachea central, no thyromegaly. LUNGS: Unlabored breathing. Clear to auscultation anteriorly. No wheeze or crackle. HEART: S1, S2, regular rate and rhythm. ABDOMEN: Soft, no tenderness , guarding or rigidity EXTREMITIES: No edema of feet. SKIN: No rash, no masses palpable. NEUROLOGICAL: The patient is awake, alert, oriented x3, mood and affect normal. Results CBC & Chem 7: 03/12/20 08:44 03/12/20 23:39 Labs: Abnormal Lab Results - Last 24 Hours (Table) 03/12/20 03/12/20 03/12/20 Range/Units 01:42 01:43 01:43 Plt Count 146 L (150-450) k/uL Lymphocytes # 0.4 L (1.0-4.8) k/uL Sodium 134 L (137-145) mmol/L Potassium 6.2 H* (3.5-5.1) mmol/L Carbon Dioxide 16 L (22-30) mmol/L BUN 75 H (9-20) mg/dL Creatinine 2.61 H (0.66-1.25) mg/dL Glucose 257 H (74-99) mg/dL POC Glucose (mg/dL) 261 H (75-99) mg/dL Hemoglobin A1c (4.0-6.0) % Plasma Lactic Acid Eladio (0.7-2.0) mmol/L Calcium (8.4-10.2) mg/dL Alkaline Phosphatase 131 H (38-126) U/L Creatine Kinase 45 L (55-170) U/L Total Protein (6.3-8.2) g/dL Albumin (3.5-5.0) g/dL Urine Protein (Negative) Urine Glucose (UA) (Negative) Urine Blood (Negative) Ur Leukocyte Esterase (Negative) Urine RBC (0-5) /hpf Urine WBC (0-5) /hpf Urine WBC Clumps (None) /hpf Urine Bacteria (None) /hpf Urine Mucus (None) /hpf 03/12/20 03/12/20 03/12/20 Range/Units 01:43 02:12 07:07 Plt Count (150-450) k/uL Lymphocytes # (1.0-4.8) k/uL Sodium (137-145) mmol/L Potassium (3.5-5.1) mmol/L Carbon Dioxide (22-30) mmol/L BUN (9-20) mg/dL Creatinine (0.66-1.25) mg/dL Glucose (74-99) mg/dL POC Glucose (mg/dL) 216 H (75-99) mg/dL Hemoglobin A1c (4.0-6.0) % Plasma Lactic Acid Eladio 2.3 H* (0.7-2.0) mmol/L Calcium (8.4-10.2) mg/dL Alkaline Phosphatase (38-126) U/L Creatine Kinase (55-170) U/L Total Protein (6.3-8.2) g/dL Albumin (3.5-5.0) g/dL Urine Protein 1+ H (Negative) Urine Glucose (UA) 2+ H (Negative) Urine Blood Large H (Negative) Ur Leukocyte Esterase Large H (Negative) Urine RBC 179 H (0-5) /hpf Urine WBC >182 H (0-5) /hpf Urine WBC Clumps Many H (None) /hpf Urine Bacteria Many H (None) /hpf Urine Mucus Rare H (None) /hpf 03/12/20 03/12/20 03/12/20 Range/Units 08:44 08:44 08:44 Plt Count 138 L (150-450) k/uL Lymphocytes # 0.7 L (1.0-4.8) k/uL Sodium (137-145) mmol/L Potassium 5.3 H (3.5-5.1) mmol/L Carbon Dioxide 15 L (22-30) mmol/L BUN 70 H (9-20) mg/dL Creatinine 2.60 H (0.66-1.25) mg/dL Glucose 188 H (74-99) mg/dL POC Glucose (mg/dL) (75-99) mg/dL Hemoglobin A1c 7.6 H (4.0-6.0) % Plasma Lactic Acid Eladio (0.7-2.0) mmol/L Calcium 7.9 L (8.4-10.2) mg/dL Alkaline Phosphatase (38-126) U/L Creatine Kinase (55-170) U/L Total Protein (6.3-8.2) g/dL Albumin (3.5-5.0) g/dL Urine Protein (Negative) Urine Glucose (UA) (Negative) Urine Blood (Negative) Ur Leukocyte Esterase (Negative) Urine RBC (0-5) /hpf Urine WBC (0-5) /hpf Urine WBC Clumps (None) /hpf Urine Bacteria (None) /hpf Urine Mucus (None) /hpf 03/12/20 03/12/20 03/12/20 Range/Units 11:15 13:29 14:30 Plt Count (150-450) k/uL Lymphocytes # (1.0-4.8) k/uL Sodium 132 L (137-145) mmol/L Potassium 6.6 H* (3.5-5.1) mmol/L Carbon Dioxide 17 L (22-30) mmol/L BUN 73 H (9-20) mg/dL Creatinine 2.73 H (0.66-1.25) mg/dL Glucose 217 H (74-99) mg/dL POC Glucose (mg/dL) 234 H 231 H (75-99) mg/dL Hemoglobin A1c (4.0-6.0) % Plasma Lactic Acid Eladio (0.7-2.0) mmol/L Calcium 7.5 L (8.4-10.2) mg/dL Alkaline Phosphatase (38-126) U/L Creatine Kinase (55-170) U/L Total Protein 6.1 L (6.3-8.2) g/dL Albumin 3.3 L (3.5-5.0) g/dL Urine Protein (Negative) Urine Glucose (UA) (Negative) Urine Blood (Negative) Ur Leukocyte Esterase (Negative) Urine RBC (0-5) /hpf Urine WBC (0-5) /hpf Urine WBC Clumps (None) /hpf Urine Bacteria (None) /hpf Urine Mucus (None) /hpf 03/12/20 03/12/20 Range/Units 18:11 21:45 Plt Count (150-450) k/uL Lymphocytes # (1.0-4.8) k/uL Sodium (137-145) mmol/L Potassium (3.5-5.1) mmol/L Carbon Dioxide (22-30) mmol/L BUN (9-20) mg/dL Creatinine (0.66-1.25) mg/dL Glucose (74-99) mg/dL POC Glucose (mg/dL) 123 H 133 H (75-99) mg/dL Hemoglobin A1c (4.0-6.0) % Plasma Lactic Acid Eladio (0.7-2.0) mmol/L Calcium (8.4-10.2) mg/dL Alkaline Phosphatase (38-126) U/L Creatine Kinase (55-170) U/L Total Protein (6.3-8.2) g/dL Albumin (3.5-5.0) g/dL Urine Protein (Negative) Urine Glucose (UA) (Negative) Urine Blood (Negative) Ur Leukocyte Esterase (Negative) Urine RBC (0-5) /hpf Urine WBC (0-5) /hpf Urine WBC Clumps (None) /hpf Urine Bacteria (None) /hpf Urine Mucus (None) /hpf Microbiology - Last 24 Hours (Table) 03/12/20 02:12 Urine Culture - Preliminary Urine,Voided Assessment and Plan Assessment: patient presented hospital with sepsis in this patient who did have a fever tachycardia hypotension source likely complicated urine tract infection this patient did have a history of for atonic bladder and recurrent UTI CT abdominal pelvis did not show any evidence of hydronephrosis the features suggestive of cystitis will need to cover for the resistant gram-negative enteric bacteria with a likely pathogen of this UTI and sepsis (1) UTI (urinary tract infection) Current Visit: Yes Status: Acute Code(s): N39.0 - URINARY TRACT INFECTION, SITE NOT SPECIFIED SNOMED Code(s): 50024349 (2) Sepsis syndrome Current Visit: No Status: Acute Code(s): SQM2582 - SNOMED Code(s): 395621109 Plan: 1-patient be continued on Zosyn 3.375 g every 24 dose has been adjusted his kidney function 2-IV fluids We will follow on clinical condition and cultures to further adjust medication if needed Thank you for this consultation we will follow the patient along with you Time with Patient: Greater than 30
[2020-03-13] MEDS ORDERED: INSULIN DETEMIR (LEVEMIR) 100 UNIT/ML SYR SQ SCH ×2 (01:02→09:00)
[2020-03-13] MEDS: PIPERACILLIN-TAZOBACTAM 3.375 GM in SODIUM CHLORIDE 0.9% 100 ML IVPB SCH ×3 (03:49→21:15)
[2020-03-13] MEDS: NOREPINEPHRINE 4 MG in SODIUM CHLORIDE 0.9% 250 ML IV SCH ×2 (03:50→20:50)
[2020-03-13 04:57] LABS: HGB 12.9 gm/dL (13.0-17.5); Hypochromasia Slight; MCH 31.6 pg (25.0-35.0); MCHC 33.1 g/dL (31.0-37.0); MCV 95.5 fL (80.0-100.0); Mean Platelet Volume 8.2; RBC 4.09 m/uL (4.30-5.90); RDW 14.7 % (11.5-15.5); WBC 7.4 k/uL (3.8-10.6)
[2020-03-13 05:29] LABS: Calcium 7.7 mg/dL (8.4-10.2)
[2020-03-13 05:30] LABS: Potassium 5.1 mmol/L (3.5-5.1)
[2020-03-13 06:30] LABS: Platelet Count 99 k/uL (150-450)
[2020-03-13 06:31] LABS: Glucose,Whole Blood 53 mg/dL (75-99)
[2020-03-13 06:42] LABS: Glucose,Whole Blood 71 mg/dL (75-99)
[2020-03-13 06:57] LABS: Glucose,Whole Blood 59 mg/dL (75-99)
[2020-03-13 06:57] LABS: Glucose,Whole Blood 62 mg/dL (75-99)
[2020-03-13 06:57] LABS: Glucose,Whole Blood 60 mg/dL (75-99)
[2020-03-13 07:18] LABS: Glucose,Whole Blood 133 mg/dL (75-99)
[2020-03-13] MEDS: INSULIN ASPART (NovoLOG) 100 UNIT/ML VIAL SQ SCH ×4 (07:19→21:14)
[2020-03-13 08:11] LABS: Glucose,Whole Blood 126 mg/dL (75-99)
[2020-03-13] MEDS: ALBUTEROL HFA INHALER INHALATION PRN ×4 (08:31→20:25)
[2020-03-13] MEDS: ISOSORBIDE MONONITRATE ER 30 MG TAB.ER.24H PO SCH (09:39)
[2020-03-13] MEDS: FUROSEMIDE 40 MG TAB PO SCH ×2 (09:39→16:00)
[2020-03-13] MEDS: CLOPIDOGREL 75 MG TAB PO SCH (09:39)
[2020-03-13] MEDS: DOCUSATE 100 MG CAP PO SCH ×2 (09:39→21:11)
[2020-03-13] MEDS: LORATADINE 10 MG TAB PO SCH (09:40)
[2020-03-13] MEDS: ASPIRIN 81 MG PO SCH (09:40)
[2020-03-13] MEDS: CARBIDOPA-LEVODOPA 25-100 MG 1 EACH TAB PO SCH ×3 (09:40→21:11)
[2020-03-13] MEDS: METOPROLOL TARTRATE 25 MG TAB PO SCH ×2 (09:41→21:11)
[2020-03-13] MEDS: ENOXAPARIN 40 MG/0.4 ML SYRINGE SQ SCH (09:42)
[2020-03-13] MEDS: GABAPENTIN 300 MG CAP PO SCH ×2 (09:42→21:11)
[2020-03-13] MEDS: POLYETHYLENE GLYCOL 3350 17 GM POWD.PACK PO SCH (09:45)
[2020-03-13] MEDS: TAMSULOSIN 0.4 MG CAP.ER.24H PO SCH (09:45)
[2020-03-13] MEDS: HYDROcodone/APAP 7.5-325MG 1 EACH TAB PO PRN ×3 (10:40→21:11)
[2020-03-13 12:25] LABS: Glucose,Whole Blood 223 mg/dL (75-99)
--- NOTE | 2020-03-13 12:50 | PN ---
PROGRESS NOTE PULMONARY/CRITICAL CARE PROGRESS NOTE: DATE OF SERVICE: 03/13/2020 This is an 84-year-old gentleman who we saw on the floor yesterday. He was admitted with a diagnosis of urinary tract infection with urosepsis. The patient appeared to be in distress yesterday. He was tachycardic and tachypneic. He had abdominal discomfort. The patient had developed an anion gap metabolic acidosis. He was showing more signs and symptoms of sepsis. For that reason, he was moved to the ICU. He seems to be doing better today. He is on room air. He is getting half-normal saline with 2 amps of bicarb at 50 mL an hour as per Nephrology. The patient does have a history of acute kidney injury, thrombocytopenia, mild lactic acidemia, CAD, skin cancer, and melanoma, among other things. PHYSICAL EXAMINATION: VITAL SIGNS: Current vital signs are reviewed. Temperature 98.4, heart rate 89, respiratory rate 20, blood pressure 143/88, mean, saturations are 95% on room air. Appears in no acute distress. HEENT: Examination is grossly unremarkable. Mucous membranes are moist. No nasal O2 noted. NECK: Supple. Full range of motion. No adenopathy. Neck veins are flat. CARDIOVASCULAR: Examination reveals regular rhythm rate. Heart rate 89. S1, S2 normal. LUNGS: Reveal mostly clear breath sounds. No wheezes, rhonchi, or crackles. ABDOMEN is distended. Bowel sounds are noted. Much less tenderness in the abdomen today. EXTREMITIES are intact. No edema. SKIN: Without rash. NEUROLOGIC: Examination is brief but nonfocal. LABS: Reviewed. Currently, white count 7.4, hemoglobin 12.9, hematocrit 39.0, platelet count 99,000. Sodium 135, potassium 5.1, chloride 109, CO2 16, anion gap is 10. BUN and creatinine is 71 and 2.78 compared to 73, 2.73 yesterday. Calcium 7.7. Urine appears to show urinary tract infection. Microbiology is now showing gram-negative bacilli in the urine, yet to be identified. CT of the abdomen and pelvis yesterday shows probable acute bladder infection or cystitis. Concern for the presence of an outlet obstruction secondary to BPH. No intraluminal calculi are noted. Chest x-ray was not done. Medications are reviewed. Currently, the patient is on Zosyn and Levaquin. Other medications are reviewed. ASSESSMENT: 1. Urinary tract infection with urosepsis in a patient with chronic and recurrent acute cystitis, caused by a gram-negative bacilli, yet to be identified. 2. Anion gap metabolic acidosis. 3. Acute kidney injury. 4. Thrombocytopenia, likely from sepsis. 5. Mild lactic acidemia. 6. History of coronary artery disease. 7. History of skin cancer. 8. History of melanoma. 9. History of angina pectoris. 10.Diabetes mellitus. 11.Hyperlipidemia. 12.Hypertension. 13.Degenerative joint disease. 14.Benign prostatic hypertrophy. 15.Parkinson's disease. 16.History of gout. 17.History of migraine cephalgia. 18.Chronic constipation. 19.History of kidney stones. PLAN: Currently, the patient is receiving a bicarb drip. His acid-base status is improved. His overall respiratory status is improved and his blood pressure is better. He certainly looks much more comfortable today than he did yesterday when we saw him on the floor. He is on good antibiotics. Additional recommendations and suggestions are forthcoming. The bacteria have not yet been identified. We will tailor the antibiotic based on the finding of bacteria in the urine. MMODL / IJN: [id number] / MTDD
--- NOTE | 2020-03-13 13:16 | P.PN ---
Subjective Progress Note Date: 03/13/20 This is an 84-year-old male patient of Dr. 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 Originally the plan was to place a stent in the OM branch and the circumflex. 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 Gloria recently secondary to ongoing back pain, and dysuria, he has troubles of these for the past 2 months, with 2 oral antibiotics for urinary tract infection, patient gets better and then gets sick again, this is related to urinary frequency, dysuria and fever. Patient denies any nausea, patient denies any instrumentation of his prostate, he said that his Enlarged prostate, unknown PSA level, follows with Dr. Mar. Patient does not require any cutler prior to admission.. He also has chronic kidney disease, follows by Dr. Diaz. He is now admitted for acute pyelonephritis with sepsis, IV Zosyn antibiotics, he required fluid resuscitation secondary to hypotension and lactic acidosis, he was given bolus of 500 mL in the emergency room with a subsequent rate of 130 mL an hour. Overnight one the hospital, he subsequently went into respiratory distress, chest x-ray was ordered showing pulmonary edema, patient's IV fluid was changed to KVO, as he was very tachypneic, with respiratory rate of 40, IV Lasix 40 mg 1, with 40 mg every 12 hours over the next 2 doses. 03/12: Patient is doing much better, has clear urine, less sediments, pain in the right side has improved, no pain in the left leg, which is chronic. Patient has no nausea no vomiting, improvement of shortness of breath, patient is stable in ICU, most likely would be transferred out of ICU to remote telemetry, chest x- ray in the morning O2 sats are stable at room air 95-98%, vitals are stable, no tachypnea. Anti-proBNP of 3700, troponins 0.014, CK 45 A1c of 7.6 Cultures ur ine are still currently pending, blood cultures are negative, patient remains on IV Zosyn Review of Systems Constitutional: Reports as per HPI, Reports anorexia, Denies chills, Denies chronic headaches, Denies chronic pain, Denies daytime sleepiness, Denies fatigue, Denies fever, Denies lethargy, Denies malaise, Denies night sweats, Denies poor appetite, Denies sweats, Denies weakness, Denies weight gain, Denies weight loss Ears, nose, mouth and throat: Reports as per HPI Cardiovascular: Reports as per HPI, Reports lightheadedness, Denies chest pain, Denies claudication, Denies decreased exercise tolerance, Denies dyspnea on exertion, Denies edema, Denies high blood pressure, Denies irregular heart beat, Denies leg edema, Denies orthopnea, Denies palpitations, Denies paroxysmal nocturnal dyspnea, Denies phlebitis, Denies rapid heart beat, Denies shortness of breath, Denies syncope Respiratory: Reports as per HPI Gastrointestinal: Reports abdominal pain, Denies as per HPI, Denies belching, Denies bloating, Denies BRBPR, Denies change in bowel habits, Denies coffee ground emesis, Denies constipation, Denies diarrhea, Denies dyspepsia, Denies early satiety, Denies excessive gas, Denies heartburn, Denies hematemesis, Denies hematochezia, Denies indigestion, Denies jaundice, Denies lactose intolerance, Denies loss of appetite, Denies melena, Denies nausea, Denies vomiting Genitourinary: Reports as per HPI, Reports dysuria, Reports urinary frequency, Reports urinary hesitancy Musculoskeletal: Reports leg numbness/tingling, Reports limitation of motion Integumentary: Reports as per HPI, Denies acne, Denies boils, Denies brittle nails, Denies change in hair/nails, Denies color changes, Denies darkening of skin, Denies depigmentation, Denies dryness, Denies foot/leg ulcers, Denies growths, Denies hirsutism, Denies lesions, Denies onychomycosis, Denies pruritus , Denies rash, Denies sores, Denies striae, Denies unusual bruising, Denies wounds Neurological: Reports as per HPI, Denies aphasia, Denies ataxia, Denies balance difficulties, Denies burning pain, Denies change in mentation, Denies change in smell/taste, Denies change in speech, Denies confusion, Denies convulsions, Denies double vision, Denies gait dysfunction, Denies head injury, Denies headaches, Denies hearing difficulties, Denies lack of coordination, Denies loss of vision, Denies memory loss, Denies migraines, Denies motor disturbance, Denies numbness, Denies paralysis, Denies paresthesias, Denies seizures, Denies sensory deficit, Denies spasticity, Denies syncope, Denies tic, Denies tingling, Denies transient paralysis, Denies tremors, Denies vertigo, Denies weakness, Denies visual changes Psychiatric: Reports as per HPI, Denies anhedonia, Denies anxiety, Denies anxiety attacks, Denies change in appetite, Denies change in libido, Denies change in sleep habits, Denies confusion, Denies depression, Denies difficulty concentrating, Denies disorientation, Denies hallucinations, Denies hopelessness, Denies hypersomnia, Denies insomnia, Denies irritability, Denies memory loss, Denies mood swings, Denies paranoia, Denies sadness/tearfulness, Denies sleep disturbances, Denies suicidal ideation Endocrine: Reports as per HPI, Denies cold intolerance, Denies deepening of the voice, Denies excessive sweating, Denies excessive thirst, Denies fatigue, Denies flushing, Denies heat intolerance, Denies high blood sugars, Denies increase in ring/shoe/hat size, Denies low blood sugars, Denies nocturia, Denies palpitations, Denies polydipsia, Denies polyphagia, Denies polyuria, Denies proptosis, Denies recent glucocorticoid use, Denies thyroid mass, Denies weight change Hematologic/Lymphatic: Reports as per HPI, Denies easy bleeding, Denies easy bruising, Denies lymphadenopathy, Denies lymphedema, Denies thrombophilia Allergic/Immunologic: Reports as per HPI, Denies allergic rhinitis, Denies anaphylaxis, Denies angioedema, Denies gluten intolerance, Denies persistent infections, Denies seasonal allergies, Denies urticaria, Denies wheezing Objective - Vital Signs Vital signs: Vital Signs Temp 98.4 F 03/13/20 08:00 Pulse 89 03/13/20 11:00 Resp 20 03/13/20 11:00 BP 143/68 03/13/20 11:00 Pulse Ox 95 03/13/20 11:00 Intake & Output 03/12/20 03/13/20 03/13/20 18:59 06:59 18:59 Intake Total 1040 1240 550 Output Total 545 1255 1125 Balance 495 15 -247 Weight 107.2 kg 109.9 kg Intake: IV 1040 40 Sodium Chloride 0.9% 1, 40 40 000 ml @ 20 mls/hr IV . Q24H RUPERTO Rx#:[id number] Sodium Chloride 0.9% 1, 1000 000 ml @ 999 mls/hr IV . Q1H1M ONE Rx#:[id number] Intake, IV Titration 1200 250 Amount Piperacillin-Tazobactam 3 200 .375 gm In Sodium Chloride 0.9% 100 ml @ 25 mls/hr IVPB Q8H RUPERTO Rx#: [id number] Sodium Chloride 0.45% 1, 500 250 000 ml @ 50 mls/hr IV . Q22H RUPERTO with Sodium Bicarb (1 Meq/ml) 100 ml Rx#:[id number] Sodium Chloride 0.9% 500 500 ml 500 ml @ 999 mls/hr IV .Q31M ONE Rx#:[id number] Oral 300 Output: Urine 545 1255 1125 Other: Voiding Method Indwelling Catheter Indwelling Catheter Indwelling Catheter - Constitutional General appearance: Present: cooperative, no acute distress, obese - EENT Eyes: Present: anicteric sclerae, EOMI, PERRLA, dentition normal, normal appearance ENT: Present: NA/AT, normal oropharynx - Respiratory Respiratory: bilateral: CTA, negative: diminished, dullness, rales, rhonchi, prolonged expiration - Cardiovascular Rhythm: regular Heart sounds: normal: S1, S2 Abnormal Heart Sounds: Absent: systolic murmur, diastolic murmur, rub, S3 Gallop, S4 Gallop, click, other - Gastrointestinal General gastrointestinal: Present: normal bowel sounds, soft - Integumentary Integumentary: Present: normal, normal turgor - Neurologic Neurologic: Present: CNII-XII intact - Musculoskeletal Musculoskeletal: Present: gait normal, strength equal bilaterally - Psychiatric Psychiatric: Present: A&O x's 3, appropriate affect - Labs CBC & Chem 7: 03/13/20 04:08 03/13/20 04:08 Labs: Abnormal Lab Results - Last 24 Hours (Table) 03/12/20 03/12/20 03/12/20 Range/Units 08:44 13:29 14:30 RBC (4.30-5.90) m/uL Hgb (13.0-17.5) gm/dL Plt Count (150-450) k/uL Sodium 132 L (137-145) mmol/L Potassium 6.6 H* (3.5-5.1) mmol/L Chloride (98-107) mmol/L Carbon Dioxide 17 L (22-30) mmol/L BUN 73 H (9-20) mg/dL Creatinine 2.73 H (0.66-1.25) mg/dL Glucose 217 H (74-99) mg/dL POC Glucose (mg/dL) 231 H (75-99) mg/dL Hemoglobin A1c 7.6 H (4.0-6.0) % Calcium 7.5 L (8.4-10.2) mg/dL Total Protein 6.1 L (6.3-8.2) g/dL Albumin 3.3 L (3.5-5.0) g/dL 03/12/20 03/12/20 03/13/20 Range/Units 18:11 21:45 04:08 RBC 4.09 L (4.30-5.90) m/uL Hgb 12.9 L (13.0-17.5) gm/dL Plt Count 99 L (150-450) k/uL Sodium (137-145) mmol/L Potassium (3.5-5.1) mmol/L Chloride (98-107) mmol/L Carbon Dioxide (22-30) mmol/L BUN (9-20) mg/dL Creatinine (0.66-1.25) mg/dL Glucose (74-99) mg/dL POC Glucose (mg/dL) 123 H 133 H (75-99) mg/dL Hemoglobin A1c (4.0-6.0) % Calcium (8.4-10.2) mg/dL Total Protein (6.3-8.2) g/dL Albumin (3.5-5.0) g/dL 03/13/20 03/13/20 03/13/20 Range/Units 04:08 06:29 06:41 RBC (4.30-5.90) m/uL Hgb (13.0-17.5) gm/dL Plt Count (150-450) k/uL Sodium 135 L (137-145) mmol/L Potassium (3.5-5.1) mmol/L Chloride 109 H (98-107) mmol/L Carbon Dioxide 16 L (22-30) mmol/L BUN 71 H (9-20) mg/dL Creatinine 2.78 H (0.66-1.25) mg/dL Glucose 73 L (74-99) mg/dL POC Glucose (mg/dL) 53 L 71 L (75-99) mg/dL Hemoglobin A1c (4.0-6.0) % Calcium 7.7 L (8.4-10.2) mg/dL Total Protein (6.3-8.2) g/dL Albumin (3.5-5.0) g/dL 03/13/20 03/13/20 03/13/20 Range/Units 06:47 06:49 06:56 RBC (4.30-5.90) m/uL Hgb (13.0-17.5) gm/dL Plt Count (150-450) k/uL Sodium (137-145) mmol/L Potassium (3.5-5.1) mmol/L Chloride (98-107) mmol/L Carbon Dioxide (22-30) mmol/L BUN (9-20) mg/dL Creatinine (0.66-1.25) mg/dL Glucose (74-99) mg/dL POC Glucose (mg/dL) 59 L 60 L 62 L (75-99) mg/dL Hemoglobin A1c (4.0-6.0) % Calcium (8.4-10.2) mg/dL Total Protein (6.3-8.2) g/dL Albumin (3.5-5.0) g/dL 03/13/20 03/13/20 03/13/20 Range/Units 07:16 08:08 12:23 RBC (4.30-5.90) m/uL Hgb (13.0-17.5) gm/dL Plt Count (150-450) k/uL Sodium (137-145) mmol/L Potassium (3.5-5.1) mmol/L Chloride (98-107) mmol/L Carbon Dioxide (22-30) mmol/L BUN (9-20) mg/dL Creatinine (0.66-1.25) mg/dL Glucose (74-99) mg/dL POC Glucose (mg/dL) 133 H 126 H 223 H (75-99) mg/dL Hemoglobin A1c (4.0-6.0) % Calcium (8.4-10.2) mg/dL Total Protein (6.3-8.2) g/dL Albumin (3.5-5.0) g/dL Microbiology - Last 24 Hours (Table) 03/12/20 02:12 Urine Culture - Preliminary Urine,Voided Gram Neg Bacilli 03/12/20 01:43 Blood Culture - Preliminary Blood No Growth after 24 hours Assessment and Plan Plan: 1. Sepsis Right lower quadrant abdominal pain with pyelonephritis, acute kidney failure, failed outpatient treatments, ongoing problems for the past 2 months. Urine cultures have been sent, consult with Dr. Fiore for suspected postobstructive uropathy with urinary retention, history of kidney stones. ct no hydronephrosis, cutler catheter is placed by urology, patient would need infectious disease for recurrent urinary tract infections, previous cultures were noted from May 2016 showing Enterobacter erogenous it has some resistance to cefazolin and cefoxitin Augmentin Unasyn and nitrofurantoin cefuroxime. new culture and sensitivity will be done. Blood cultures, consult Dr. Penn secondary to recurrent chronic nature of this illness failure of 2 previous antibiotics over the past 2 months 2. Acute diastolic failure, with acute diastolic CHF exacerbation against fluid overload, patient was receiving IV fluids at 130 mL an hour for lactic acidosis, and dehydration, patient did not tolerate these fluid resuscitation, and was discontinued, patient was given IV Lasix 40 mg every 12 hours, echocardiogram, proBNP, patient was transferred to ICU secondary to acute respiratory distress, consult was made with Dr. Nichols pulmonary. Chest x-ray ordered Cutler catheter for intensive care management of I's and O's chest x-ray for March 14 most likely to be transferred out of ICU today or tomorrow March 14 3. Acute pyelonephritis, recurrent, suspicious bladder outlet obstruction from BPH, this would be treated with IV antibiotics, 4. BPH with lower tract symptomatology, sees Dr. Fiore as an outpatient, no prior surgery for these unknown PSA levels, continue Flomax 0.4 mg daily will discontinue Zyrtec 4. History of coronary artery disease. Continue aspirin 81 mg daily, Plavix 75 mg daily, atorvastatin, Lopressor, Imdur 30 mg daily. 5. Diabetes mellitus type 2 insulin requiring uncontrolled, hemoglobin A1c 7.6, has fasting hyperglycemia at home,. Continue Lantus 50 units daily , NovoLog scale, NovoLog scheduled. Continue NovoLog scale on 531, decreased Levemir to 37 units, as the patient has diminished appetite, diet started today patient takes 12 units before meals 3 times a day when necessary at home 6. Chronic kidney disease stage IV. Patient is at baseline. Avoid nephrotoxic agents. Consult with Dr. Diaz, 7. Parkinson's disease. Continue Sinemet one 3 times daily. 8. History of kidney stones, stable. Urinalysis shows no hematuria. 9. DVT prophylaxis. Heparin subcu. 10. GI prophylaxis. Protonix. 11. Hyperlipidemia on Lipitor 40 12. hyperuricemia on allopurinol 100 mg daily 13. CAD, no current symptoms, on maintenance Lopressor and Zestril 2.5 Imdur 30, Patient will be admitted to the hospital for a minimum of 2 night stay.
--- NOTE | 2020-03-13 15:41 | PN ---
PROGRESS NOTE The patient was transferred to the ICU yesterday. He has received IV fluid boluses. Urine output had been low and blood pressure was low. However, blood pressure had stabilized and urine output has picked up now. Mentation is also improved. Respiratory status is better. The patient has been started on antibiotics. Serum creatinine is about the same as yesterday at 2.7 mg/dL. EXAMINATION: Today patient is comfortable. Blood pressure 141/90, heart rate 92 per minute, he is afebrile. Currently O2 sats are 95-96% on 2 L nasal cannula. Examination of the heart S1, S2. Examination of the lungs: Decreased breath sounds bases. Abdomen is soft, nontender, distended. Examination of lower extremities shows no significant edema. [employer]IST exam grossly intact. LABS: Show sodium 135, potassium 5.1, chloride 109, CO2 is 16, BUN 71, creatinine 2.78, hemoglobin 12.9 g/dL. ASSESSMENT: 1. Acute kidney injury, acute tubular necrosis, associated with hypotension/hypoperfusion, currently improved with better urine output although creatinine is the same as yesterday. Expect further improvement as patient is much more hemodynamically stable. 2. Urinary tract infection with sepsis, maintained on antibiotics. Urine culture growing Gram-negative bacilli. 3. Mild volume overload, currently stable. Continue with oral Lasix for now. 4. Non-gap metabolic acidosis, currently maintained on bicarb drip with 100 mEq of sodium bicarb in half-normal saline. 5. Hypotension from sepsis, now improved. 6. Lactic acidosis. 7. Hyperkalemia associated with acute kidney injury, acidosis now improved. PLAN: Continue with the bicarb drip for now. Maintain oral Lasix at current dose. Repeat labs in a.m. Continue antibiotics. MMODL / IJN: [id number] /
[2020-03-13 16:58] LABS: Glucose,Whole Blood 230 mg/dL (75-99)
[2020-03-13] MEDS: FINASTERIDE 5 MG TAB PO SCH (17:36)
[2020-03-13] MEDS: ATORVASTATIN 40 MG TAB PO SCH (17:36)
[2020-03-13] MEDS: ALLOPURINOL 100 MG TAB PO SCH (17:36)
[2020-03-13 20:58] LABS: Glucose,Whole Blood 211 mg/dL (75-99)
[2020-03-13] MEDS: SODIUM CHLORIDE 0.45% 1,000 ML with SODIUM BICARB (1 MEQ/ML) 100 ML IV SCH ×2 (21:05)
[2020-03-13] MEDS: CYCLOBENZAPRINE 5 MG TAB PO SCH (21:13)
[2020-03-14] MEDS: NOREPINEPHRINE 4 MG in SODIUM CHLORIDE 0.9% 250 ML IV SCH (01:10)
[2020-03-14] MEDS: SODIUM CHLORIDE 0.9% 1,000 ML IV SCH (01:10)
--- NOTE | 2020-03-14 01:20 | PN ---
PROGRESS NOTE DATE OF SERVICE: 03/13/2020 REASON FOR FOLLOWUP: UTI with sepsis. INTERVAL HISTORY: The patient is currently afebrile, has been breathing comfortably. Denies having any chest pain or shortness of breath or cough. No abdominal pain and no diarrhea. PHYSICAL EXAMINATION: Blood pressure is 130/63 with a pulse of 85, temperature 98.4. He is 95% on room air. General description is an elderly male lying in bed in no distress. RESPIRATORY SYSTEM: Unlabored breathing, clear to auscultation anteriorly. HEART: S1, S2. Regular rate and rhythm. ABDOMEN: Soft, no tenderness. LABS: Hemoglobin 12.9, white count 7.4, BUN of 71, creatinine 2.78. Urine with Gram- negative. DIAGNOSTIC IMPRESSION AND PLAN: Patient admitted to the hospital with sepsis versus gram-negative urinary tract infection. Abdomen and pelvis CT did show some chronic medical renal disease, but no hydronephrosis or abscess. Patient with gram-negative urinary tract infection and sepsis. Patient is covered with Zosyn to continue. Adjust antibiotic further based on clinical response and culture. Continue with supportive care. MMODL / IJN: [id number] /
[2020-03-14] MEDS: PIPERACILLIN-TAZOBACTAM 3.375 GM in SODIUM CHLORIDE 0.9% 100 ML IVPB SCH (04:47)
[2020-03-14 04:53] LABS: Basophils % (A) 0 %; Eosinophils # (A) 0.4 k/uL (0-0.7); Eosinophils % (A) 9 %; HCT 35.7 % (39.0-53.0); HGB 12.1 gm/dL (13.0-17.5); Lymphocytes # (A) 0.8 k/uL (1.0-4.8); Lymphocytes % (A) 20 %; MCH 30.9 pg (25.0-35.0); MCHC 33.8 g/dL (31.0-37.0); MCV 91.5 fL (80.0-100.0); Mean Platelet Volume 8.6; Monocytes # (A) 0.3 k/uL (0-1.0); Monocytes % (A) 8 %; Neutrophils # (A) 2.6 k/uL (1.3-7.7); Neutrophils % (A) 61 %; Platelet Count 100 k/uL (150-450); RDW 14.7 % (11.5-15.5); WBC 4.3 k/uL (3.8-10.6)
[2020-03-14 05:17] LABS: Calcium 7.7 mg/dL (8.4-10.2); Potassium 4.3 mmol/L (3.5-5.1)
[2020-03-14 06:54] LABS: Glucose,Whole Blood 92 mg/dL (75-99)
[2020-03-14] MEDS: INSULIN DETEMIR (LEVEMIR) 100 UNIT/ML SYR SQ SCH (06:55)
[2020-03-14] MEDS: INSULIN ASPART (NovoLOG) 100 UNIT/ML VIAL SQ SCH ×4 (06:55→21:04)
--- NOTE | 2020-03-14 07:22 | XR ---
EXAMINATION TYPE: XR chest 1V portable DATE OF EXAM: 03/14/2020 Comparison: 03/12/2020 Clinical History: 84-year-old male reassess CHF Findings: Heart mildly enlarged. Diffuse interstitial and perihilar density, slightly improved. Retrocardiac an d left basilar opacity persists. Impression: CHF with residual mild interstitial edema, partially improved from prior. Continued small left effusi on with adjacent atelectasis and/or consolidation.
[2020-03-14] MEDS: ALBUTEROL HFA INHALER INHALATION PRN ×3 (08:15→19:46)
[2020-03-14] MEDS: ASPIRIN 81 MG PO SCH (08:28)
[2020-03-14] MEDS: CARBIDOPA-LEVODOPA 25-100 MG 1 EACH TAB PO SCH ×3 (08:29→21:04)
[2020-03-14] MEDS: ENOXAPARIN 30 MG/0.3 ML SYRINGE SQ SCH (08:29)
[2020-03-14] MEDS: CLOPIDOGREL 75 MG TAB PO SCH (08:29)
[2020-03-14] MEDS: METOPROLOL TARTRATE 25 MG TAB PO SCH ×2 (08:29→21:05)
[2020-03-14] MEDS: DOCUSATE 100 MG CAP PO SCH ×2 (08:29→21:04)
[2020-03-14] MEDS: ISOSORBIDE MONONITRATE ER 30 MG TAB.ER.24H PO SCH (08:30)
[2020-03-14] MEDS: POLYETHYLENE GLYCOL 3350 17 GM POWD.PACK PO SCH (08:30)
[2020-03-14] MEDS: FUROSEMIDE 40 MG TAB PO SCH ×2 (08:30→16:18)
--- NOTE | 2020-03-14 09:12 | CDI ---
Documentation Clarification Form Date: 03/14/2020 08:48:48 AM From: Senia Leslie RN CCDS Admit Date: 03/12/2020 03:25:00 AM Patient Name: Asher Wright Visit Number: [id number] Discharge Date: ATTENTION: The Clinical Documentation Specialists (CDI) and [facility] Coding Staff appreciate your assistance in clarifying documentation. Please respond to the clarification below the line at the bottom and electronically sign. The CDI & [facility] Coding staff will review the response and follow-up if needed. Please note: Queries are made part of the Legal Health Record. If you have any questions, please contact the author of this message via ITS. Dr. Misty Delarosa Fever with abnormal chest x-ray, being considered for COVID 19 is documented in Nephrology consult 03/12 The COVID-19 test obtained on 03/12 was reported as Negative on 03/12. Patient history/risk factors: 84-year-old male with a history of urinary infections due to hypotonic bladder and kidney stones, Parkinsons, HTN, HLD, DM and Renal disease. Clinical Indicators: Signs and symptoms: Abdominal pain and fever 03/12 CXR: Diminished inspiration with new mild to moderate diffuse interstitial edema 03/12 Vital signs on admission: BP: 131/73, HR:103, T: 103 F, RR: 18, SpO2 93% room air 03/12 Labs: Wbc 6.8, Lymphocytes 0.4, Lactic Acid 2.3, Alk Phos 131, Creatinine Kinase 45, Treatment: 03/12 Zosyn IV Q 8 Hrs, Lasx Iv x1 followed by Po Bid In order to capture the severity of condition, please clarify the COVID-19 status: YES. COVID-19 ruled out False negative, treating for COVID-19 based on these clinical indicators: Other, please specify: (Last Form Revision: December 2019) covid ruled out MTDD
[2020-03-14] MEDS: TAMSULOSIN 0.4 MG CAP.ER.24H PO SCH (09:47)
[2020-03-14] MEDS: PREGABALIN 50 MG CAP PO SCH ×2 (09:47→21:11)
[2020-03-14] MEDS: GABAPENTIN 300 MG CAP PO SCH ×2 (09:47→21:07)
[2020-03-14] MEDS: SODIUM BICARBONATE TAB 650 MG TAB PO SCH ×2 (09:48→21:04)
--- NOTE | 2020-03-14 10:10 | CDI ---
Documentation Clarification Form Date: 03/14/2020 09:29:30 AM From: Senia Leslie RN CCDS Admit Date: 03/12/2020 03:25:00 AM Patient Name: Asher Wright Visit Number: [id number] Discharge Date: ATTENTION: The Clinical Documentation Specialists (CDI) and [facility] Coding Staff appreciate your assistance in clarifying documentation. Please respond to the clarification below the line at the bottom and electronically sign. The CDI & [facility] Coding staff will review the response and follow-up if needed. Please note: Queries are made part of the Legal Health Record. If you have any questions, please contact the author of this message via ITS. Dr. Misty Delarosa He is now admitted for acute pyelonephritis with sepsis, IV Zosyn antibiotics, he required fluid resuscitation secondary to hypotension and lactic acidosis, he was given bolus of 500 mL in the emergency room with a subsequent rate of 130 mL an hour. Is documented in the H&P 03/12 Patient history/risk factors: 84-year-old male presents to ED with urinary frequency, dysuria and fever. History of urinary tract infections for the past two months with two oral antibiotics. Medical history of Enlarged prostate, DM, HLD, HTN, Stage 4 Kidney disease and kidney stones. Clinical Indicators: Vitals: 03/12 14:30 B/P: 85/51, HR: 81, RR: 29, SpO2 93% 3L nasal cannula 15:30 BP: 83/49, HR:75, RR: 25, SpO2 93% 3L nasal cannula 17:30 BP: 88/55, HR: 71, RR: 17, SpO2 95% 3L nasal cannula Treatment: 03/12 0.9ns 2.5L bolus, 0.9ns 50cc/hr d/c 03/14, Levaquin Ivpb, Zosyn Ivpb, Norepinephrine Iv @ 20.422 mls/hr d/c 03/14 In your professional opinion, can you please specify the etiology of the hypotension if known? YES. Septic Shock Suspected or known causative organism Any associated organ failure Shock Ruled Out Other, please specify Unable to determine (Last Revision: July 2017) septic shock, cultures pending, gm neg expected MTDD
--- NOTE | 2020-03-14 10:52 | US ---
EXAMINATION TYPE: US kidneys/renal and bladder DATE OF EXAM: 03/14/2020 COMPARISON: Correlation CT 03/12/2020 and ultrasound 09/22/2019 CLINICAL HISTORY: 84-year-old male ANNMARIE, frequent UTIs, sepsis. ANNMARIE, frequent UTIs, sepsis TECHNIQUE: Multiple sonographic images of the kidneys and bladder are obtained. FINDINGS: EXAM MEASUREMENTS: Right Kidney: 9.6 x 4.6 x 4.3 cm Left Kidney: 9.9 x 5.3 x 4.2 cm Right Kidney: Extrarenal pelvis, unchanged from prior CT. No calyceal dilatation to suggest hydroneph rosis. Left Kidney: echogenic foci lower pole = 0.4cm . No hydronephrosis. Bladder: Thickened, collapsed bladder wall noted surrounding Stapleton Catheter IMPRESSION: 1. Extrarenal pelvis on the right. No hydronephrosis on either side. 2. Echogenic 4 mm focus at the left lower pole, possible tiny nonobstructive calculus. 3. Stapleton catheter in place. The bladder wall is collapsed but very thickened, possible chronic bladde r wall hypertrophy or cystitis. Clinically correlate.
--- NOTE | 2020-03-14 11:46 | P.PN ---
Subjective Progress Note Date: 03/14/20 The patient E. coli is pansensitive. He seems to be doing better. His upper tract is unremarkable. I suspect the big problem with his persistent urine infection is incomplete bladder emptying that he has as a result of his neurogenic bladder. This will have to be reevaluated as an outpatient after he heals from his infection. I'll need to be treated longer than average. At some point time he will try the catheter out however I'm in no hurry to do this. Objective - Vital Signs Vital signs: Vital Signs Temp 98.3 F 03/14/20 08:00 Pulse 83 03/14/20 08:00 Resp 25 H 03/14/20 09:00 BP 133/69 03/14/20 09:00 Pulse Ox 94 L 03/14/20 09:00 Intake & Output 03/13/20 03/14/20 03/14/20 18:59 06:59 18:59 Intake Total 1300 800 100 Output Total 2110 1845 745 Balance -810 -1045 -645 Weight 105.4 kg Intake: IV 100 200 Piperacillin-Tazobactam 3 100 200 .375 gm In Sodium Chloride 0.9% 100 ml @ 25 mls/hr IVPB Q8H RUPERTO Rx#: [id number] Intake, IV Titration 600 600 100 Amount Sodium Chloride 0.45% 1, 600 600 100 000 ml @ 50 mls/hr IV . Q22H RUPERTO with Sodium Bicarb (1 Meq/ml) 100 ml Rx#:[id number] Oral 300 Tube Feeding 300 Output: Urine 2110 1845 745 Other: Voiding Method Indwelling Catheter Indwelling Catheter Indwelling Catheter - Labs CBC & Chem 7: 03/14/20 03:47 03/14/20 03:47 Labs: Abnormal Lab Results - Last 24 Hours (Table) 03/13/20 03/13/20 03/13/20 Range/Units 12:23 16:54 20:56 RBC (4.30-5.90) m/uL Hgb (13.0-17.5) gm/dL Hct (39.0-53.0) % Plt Count (150-450) k/uL Lymphocytes # (1.0-4.8) k/uL Sodium (137-145) mmol/L Carbon Dioxide (22-30) mmol/L BUN (9-20) mg/dL Creatinine (0.66-1.25) mg/dL Glucose (74-99) mg/dL POC Glucose (mg/dL) 223 H 230 H 211 H (75-99) mg/dL Calcium (8.4-10.2) mg/dL 03/14/20 03/14/20 Range/Units 03:47 03:47 RBC 3.90 L (4.30-5.90) m/uL Hgb 12.1 L (13.0-17.5) gm/dL Hct 35.7 L (39.0-53.0) % Plt Count 100 L (150-450) k/uL Lymphocytes # 0.8 L (1.0-4.8) k/uL Sodium 133 L (137-145) mmol/L Carbon Dioxide 19 L (22-30) mmol/L BUN 63 H (9-20) mg/dL Creatinine 2.53 H (0.66-1.25) mg/dL Glucose 106 H (74-99) mg/dL POC Glucose (mg/dL) (75-99) mg/dL Calcium 7.7 L (8.4-10.2) mg/dL Microbiology - Last 24 Hours (Table) 03/12/20 02:12 Urine Culture - Final Urine,Voided Escherichia coli 03/12/20 01:43 Blood Culture - Preliminary Blood No Growth after 48 hours
[2020-03-14 12:37] LABS: Glucose,Whole Blood 141 mg/dL (75-99)
--- NOTE | 2020-03-14 12:43 | P.PN ---
Subjective Progress Note Date: 03/14/20 84-year-old male patient admitted to the intensive care unit because of a UTI and sepsis. The patient was inquired distress as the patient was tachycardic and tachypneic. He had also a component of anion gap metabolic acidosis. He was in sepsis at the time of admission. He got transferred to the intensive care unit. He received IV fluids and the patient was also covered with broad- spectrum antibiotics including IV Zosyn. The patient also required pressors which was given to him in the form of norepinephrine infusion. In terms of IV fluids, he was maintained on a bicarb infusion. Urine culture showing gram- negative bacillus and the final cultures sensitivities are not completely resulted. He tested negative for colon 19. The patient also had an acute kidney injury and subsequent workup with a CAT scan of the abdomen and pelvis done on 03/12/2020 showed evidence of bladder infections/cystitis with background wall thickening related to OBSTRUCTION from BPH. There was no intraluminal calculi noted. Urology was consulted regarding this issue and no immediate intervention was recommended based on the evaluation. The patient didn't show any hydronephrosis or renal stones. Note that the patient's creatinine continues to be elevated and the patient has an acute on top of chronic kidney disease as the patient has stage III chronic kidney failure. Urine output continues to improve. The patient today is still on a bicarb infusion. The patient is producing adequate amount of urine output. He is feeling well. Has been downgraded to telemetry, medical surgical unit. He is having pain in his lower extremities. He has chronic neuropathy. Lyrica has been added. He is also on Neurontin. He is still on a combination of [place] and morphine on estrogen basis for pain control. He is on 50 units of Levemir insulin along with a sliding scale coverage. Objective - Vital Signs Vital signs: Vital Signs Temp 98.3 F 03/14/20 08:00 Pulse 83 03/14/20 08:00 Resp 25 H 03/14/20 09:00 BP 133/69 03/14/20 09:00 Pulse Ox 94 L 03/14/20 09:00 Intake & Output 03/13/20 03/14/20 03/14/20 18:59 06:59 18:59 Intake Total 1300 800 100 Output Total 2110 6243 745 Balance -810 -1045 -645 Weight 105.4 kg Intake: IV 100 200 Piperacillin-Tazobactam 3 100 200 .375 gm In Sodium Chloride 0.9% 100 ml @ 25 mls/hr IVPB Q8H RUPERTO Rx#: [id number] Intake, IV Titration 600 600 100 Amount Sodium Chloride 0.45% 1, 600 600 100 000 ml @ 50 mls/hr IV . Q22H RUPERTO with Sodium Bicarb (1 Meq/ml) 100 ml Rx#:[id number] Oral 300 Tube Feeding 300 Output: Urine 2110 1845 745 Other: Voiding Method Indwelling Catheter Indwelling Catheter Indwelling Catheter - Exam The patient appeared well nourished and normally developed. Vital signs as documented. Head exam is unremarkable. No scleral icterus or corneal arcus noted. Neck is without jugular venous distension, thyromegaly, or carotid bruits. Carotid upstrokes are brisk bilaterally. Lungs are clear to auscultation and percussion. Cardiac exam reveals the PMI to be normally sized and situated. Rhythm is regular. First and second heart sounds normal. No murmurs, rubs or gallops. Abdominal exam reveals normal bowel sounds, no masses, no organomegaly and no aortic enlargement. Extremities are nonedematous and both femoral and pedal pulses are normal.Examination of the skin revealed no evidence of significant rashes, suspicious appearing nevi or other concerning lesions. Neurologically the patient is awake and alert and there is no focal neurological deficit at this point in time. - Labs CBC & Chem 7: 03/14/20 03:47 03/14/20 03:47 Labs: Abnormal Lab Results - Last 24 Hours (Table) 03/13/20 03/13/20 03/14/20 Range/Units 16:54 20:56 03:47 RBC 3.90 L (4.30-5.90) m/uL Hgb 12.1 L (13.0-17.5) gm/dL Hct 35.7 L (39.0-53.0) % Plt Count 100 L (150-450) k/uL Lymphocytes # 0.8 L (1.0-4.8) k/uL Sodium (137-145) mmol/L Carbon Dioxide (22-30) mmol/L BUN (9-20) mg/dL Creatinine (0.66-1.25) mg/dL Glucose (74-99) mg/dL POC Glucose (mg/dL) 230 H 211 H (75-99) mg/dL Calcium (8.4-10.2) mg/dL 03/14/20 03/14/20 Range/Units 03:47 11:53 RBC (4.30-5.90) m/uL Hgb (13.0-17.5) gm/dL Hct (39.0-53.0) % Plt Count (150-450) k/uL Lymphocytes # (1.0-4.8) k/uL Sodium 133 L (137-145) mmol/L Carbon Dioxide 19 L (22-30) mmol/L BUN 63 H (9-20) mg/dL Creatinine 2.53 H (0.66-1.25) mg/dL Glucose 106 H (74-99) mg/dL POC Glucose (mg/dL) 141 H (75-99) mg/dL Calcium 7.7 L (8.4-10.2) mg/dL Microbiology - Last 24 Hours (Table) 03/12/20 02:12 Urine Culture - Final Urine,Voided Escherichia coli 03/12/20 01:43 Blood Culture - Preliminary Blood No Growth after 48 hours Assessment and Plan Plan: 1 sepsis secondary to gram-negative bacillus. The patient had a acute cystitis with secondary sepsis/septic shock. Final cultures and sensitivities are not available although patient back in 2016 showed Enterobacter aerogenesis. The patient currently on IV Zosyn. The patient is hemodynamically stable. The patient is improving. The patient is afebrile. Awaiting final cultures and sensitivities from the urine which possibly may garment turner to be E. coli. 2 BPH with a mild component of obstructive uropathy without hydronephrosis and urology evaluated the patient without any need for surgical intervention 3 hypotension secondary to above 4 chronic stage III kidney disease 5 acute kidney injury on top of chronic renal failure secondary to above, and acute component is improving and creatinine is down to 2.5 6 BPH 7 coronary artery disease 8 Parkinson's disease 9 hyperlipidemia 10 hyperuricemia 11 diabetes mellitus currently on Levemir insulin 50 units daily in addition to a sliding scale coverage 12 non-Gap metabolic acidosis currently on bicarb infusion Plan Stop the bicarb infusion and replaced with oral bicarb 650 mEq twice a day Monitor renal function which is improving for now Awaiting final cultures and sensitivities from the urine and meanwhile the patient is on broad-spectrum antibiotics. Pain control per medicine. The patient was given Duragesic patch and addition to a combination of Neurontin and Lyrica. She is also taken [place] for pain c ontrol. He does have morphine sulfate when necessary. I did say quite aggressive combination with 3 different types of narcotics and when he to limit the use of narcotics to fentanyl and [place] for breakthrough pain for now.\ The patient has been downgraded to medical surgical unit with telemetry privileges.
--- NOTE | 2020-03-14 13:27 | P.PN ---
Subjective Progress Note Date: 03/14/20 This is an 84-year-old male patient of Dr. 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 Originally the plan was to place a stent in the OM branch and the circumflex. 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 Gloria recently secondary to ongoing back pain, and dysuria, he has troubles of these for the past 2 months, with 2 oral antibiotics for urinary tract infection, patient gets better and then gets sick again, this is related to urinary frequency, dysuria and fever. Patient denies any nausea, patient denies any instrumentation of his prostate, he said that his Enlarged prostate, unknown PSA level, follows with Dr. Mar. Patient does not require any cutler prior to admission.. He also has chronic kidney disease, follows by Dr. Diaz. He is now admitted for acute pyelonephritis with sepsis, IV Zosyn antibiotics, he required fluid resuscitation secondary to hypotension and lactic acidosis, he was given bolus of 500 mL in the emergency room with a subsequent rate of 130 mL an hour. Overnight one the hospital, he subsequently went into respiratory distress, chest x-ray was ordered showing pulmonary edema, patient's IV fluid was changed to KVO, as he was very tachypneic, with respiratory rate of 40, IV Lasix 40 mg 1, with 40 mg every 12 hours over the next 2 doses. 03/12: Patient is doing much better, has clear urine, less sediments, pain in the right side has improved, no pain in the left leg, which is chronic. Patient has no nausea no vomiting, improvement of shortness of breath, patient is stable in ICU, most likely would be transferred out of ICU to remote telemetry, chest x- ray in the morning O2 sats are stable at room air 95-98%, vitals are stable, no tachypnea. Anti-proBNP of 3700, troponins 0.014, CK 45 A1c of 7.6 Cultures uri ne are still currently pending, blood cultures are negative, patient remains on IV Zosyn 03/14: Patient complains of shooting pain in his leg which has been chronic. Will add a fentanyl patch and plan to decrease IV pain medication. We will change gabapentin to Lyrica. Incentive spirometry and ALVARO hose added. Patient will be transferred to [facility] floor. Patient has been afebrile, heart rate 83, blood pressure 118/69, pulse ox 97% on room air. Repeat blood work reveals WBC 4.3, hemoglobin 12.1, platelet count 100. Sodium 133, potassium 4.3, chloride 104, CO2 19, BUN 63 and creatinine 2.53. Capillary blood glucose running between 92 and 230. Patient is followed by Dr. Penn and continued on IV Rocephin. Urine culture is positive for pansensitive E. coli. Blood culture shows no growth after 48 hours. Renal ultrasound reveals extrarenal pelvis on the right. No hydronephrosis on either side. Echogenic 4 mm focus of the left lower pole, possibly tiny nonobstructive calculus. Cutler catheter in place. Bladder elkins collapsed but very thickened possibly chronic bladder wall hypertrophy or cystitis. Dr. Mar is evaluated and followed. Suspect that his persistent urine infection is due to incomplete bladder emptying from the neurogenic bladder and can be evaluated as an outpatient. No gallegos to remove Cutler. Objective - Vital Signs Vital signs: Vital Signs Temp 98.5 F 03/14/20 03:00 Pulse 73 03/14/20 07:00 Resp 24 03/14/20 07:00 BP 111/61 03/14/20 07:00 Pulse Ox 94 L 03/14/20 07:00 Intake & Output 03/13/20 03/14/20 03/14/20 18:59 06:59 18:59 Intake Total 1300 800 50 Output Total 9480 6785 170 Balance -810 -1045 -120 Weight 105.4 kg Intake: IV 100 200 Piperacillin-Tazobactam 3 100 200 .375 gm In Sodium Chloride 0.9% 100 ml @ 25 mls/hr IVPB Q8H RUPERTO Rx#: [id number] Intake, IV Titration 600 600 50 Amount Sodium Chloride 0.45% 1, 600 600 50 000 ml @ 50 mls/hr IV . Q22H RUPERTO with Sodium Bicarb (1 Meq/ml) 100 ml Rx#:[id number] Oral 300 Tube Feeding 300 Output: Urine 2117 6339 170 Other: Voiding Method Indwelling Catheter Indwelling Catheter - Exam Review of Systems Constitutional: No fever, no chills, no night sweats. No weight change. No weakness, fatigue or lethargy. No daytime sleepiness. EENT: No headache. No blurred vision or double vision, no loss of vision. No loss of Hearing, no ringing in the ears, no dizziness. No nasal drainage or congestion. No epistaxis. No sore throat. Lungs: No shortness of breath, cough, no sputum production. No wheezing. Cardiovascular: No chest pain, no lower extremity edema. No palpitations. No paroxysmal nocturnal dyspnea. No orthopnea. No lightheadedness or dizziness. No syncopal episodes. Abdominal: No abdominal pain. No nausea, vomiting. No diarrhea. No constipation. No bloody or tarry stools.. No loss of appetite. Genitourinary: No dysuria, increased frequency, urgency. No urinary retention. Musculoskeletal: No myalgias. No muscle weakness, no gait dysfunction, no frequent falls. No back pain. No neck pain. Reports shooting pain left leg. Integumentary: No wounds, no lesions. No rash or pruritus. No unusual bruising. No change in hair or nails. Neurologic: No aphasia. No facial droop. No change in mentation. No head injury. No headache. No paralysis. No paresthesia. Psychiatric: No depression. No anxiety. No mood swings. Endocrine: No abnormal blood sugars. No weight change. No excessive sweating or thirst. No cold intolerance. Physical examination - Constitutional General appearance: Present: cooperative, no acute distress, obese, resting in the ICU bed - EENT Eyes: Present: anicteric sclerae, EOMI, PERRLA, dentition normal, normal appearance ENT: Present: NA/AT, normal oropharynx - Respiratory Respiratory: bilateral: CTA, negative: diminished, dullness, rales, rhonchi, prolonged expiration - Cardiovascular Rhythm: regular Heart sounds: normal: S1, S2 Abnormal Heart Sounds: Absent: systolic murmur, diastolic murmur, rub, S3 Gallop, S4 Gallop, click, other - Gastrointestinal General gastrointestinal: Present: normal bowel sounds, soft - Integumentary Integumentary: Present: normal, normal turgor - Neurologic Neurologic: Present: CNII-XII intact - Musculoskeletal Musculoskeletal: Present: gait normal, strength equal bilaterally - Psychiatric Psychiatric: Present: A&O x's 3, appropriate affect - Labs CBC & Chem 7: 03/14/20 03:47 03/14/20 03:47 Labs: Abnormal Lab Results - Last 24 Hours (Table) 03/13/20 03/13/20 03/13/20 Range/Units 08:08 12:23 16:54 RBC (4.30-5.90) m/uL Hgb (13.0-17.5) gm/dL Hct (39.0-53.0) % Plt Count (150-450) k/uL Lymphocytes # (1.0-4.8) k/uL Sodium (137-145) mmol/L Carbon Dioxide (22-30) mmol/L BUN (9-20) mg/dL Creatinine (0.66-1.25) mg/dL Glucose (74-99) mg/dL POC Glucose (mg/dL) 126 H 223 H 230 H (75-99) mg/dL Calcium (8.4-10.2) mg/dL 03/13/20 03/14/20 03/14/20 Range/Units 20:56 03:47 03:47 RBC 3.90 L (4.30-5.90) m/uL Hgb 12.1 L (13.0-17.5) gm/dL Hct 35.7 L (39.0-53.0) % Plt Count 100 L (150-450) k/uL Lymphocytes # 0.8 L (1.0-4.8) k/uL Sodium 133 L (137-145) mmol/L Carbon Dioxide 19 L (22-30) mmol/L BUN 63 H (9-20) mg/dL Creatinine 2.53 H (0.66-1.25) mg/dL Glucose 106 H (74-99) mg/dL POC Glucose (mg/dL) 211 H (75-99) mg/dL Calcium 7.7 L (8.4-10.2) mg/dL Microbiology - Last 24 Hours (Table) 03/12/20 01:43 Blood Culture - Preliminary Blood No Growth after 48 hours 03/12/20 02:12 Urine Culture - Preliminary Urine,Voided Gram Neg Bacilli Assessment and Plan Plan: 1. Sepsis, septic shock secondary to acute pansensitive E. coli urinary tract infection. Consults appreciated with Dr. Mar, Dr. Penn, medical economics consultant. Patient is currently on ceftriaxone. 2. Acute fluid overload secondary to IV fluid resuscitation. Continue oral Lasix. 3. Pyelonephritis, ruled out. No hydronephrosis. 4. BPH with neurogenic bladder secondary to radiation therapy. Consult with Dr. Mar appreciated. Cutler catheter to be maintained. Continue Flomax 0.4 mg daily, Proscar 5 mg with supper.. 5. History of coronary artery disease. Continue aspirin 81 mg daily, Plavix 75 mg daily, atorvastatin, Lopressor, Imdur 30 mg daily. 6. Diabetes mellitus type 2 insulin requiring uncontrolled, hemoglobin A1c 7.6. Continue Levemir 50 units daily, NovoLog scale 7. Acute kidney injury, acute tubular necrosis secondary to hypotension hypoper fusion. Consult with Dr. Diaz appreciated. Avoid nephrotoxic agents, continue to monitor closely. 8. Non-gap metabolic acidosis. Bicarbonate drip transitioned to oral 650 mg twice daily. Consult with nephrology appreciated. 9. Lactic acidosis secondary to sepsis. 10. Hyperkalemia secondary to acute kidney injury, improved. 11. Chronic kidney disease stage IV. Consult with Dr. Diaz, 12. Chronic lower extremity neuropathy. Patient has been on gabapentin and will be tapered with decreased to 300 mg twice daily and start Lyrica 50 mg twice daily, fentanyl patch added. Continue Flexeril 10 mg at bedtime. 13. Parkinson's disease. Continue Sinemet one 3 times daily. 14. History of kidney stones, stable. Urinalysis shows no hematuria. 15. Chronic thrombocytopenia, stable. 16. DVT prophylaxis. Lovenox subcu. 17. GI prophylaxis. Protonix. 18. Hyperlipidemia on Lipitor 40 19. Hyperuricemia on allopurinol 100 mg daily 20. History of coronary artery disease. Continue aspirin 81 mg daily, Lipitor 40 mg daily, Plavix 75 mg daily, Imdur 30 mg daily, Lopressor 25 mg twice daily. 21. COVID-19 infection not present. Discharge plan: Possible subacute rehab, discharge in the next 48 hours. PT and OT consults. Impression and plan of care have been directed as dictated by the signing physician. Missy Douglas nurse practitioner acting as scribe for signing physician.
--- NOTE | 2020-03-14 15:46 | PN ---
PROGRESS NOTE Patient is seen for followup for acute kidney injury, mainly ATN, currently improving. Patient was admitted to the hospital with sepsis, lactic acidosis and UTI. His overall general condition has improved. He was hypotensive as well on initial admission. Urine output has picked up now and renal function has been improving. Patient is hemodynamically stable. He is not on any pressors currently. IV fluids have been discontinued. Patient is maintained on oral Lasix. PHYSICAL EXAMINATION: On examination today, blood pressure is 118/69, heart rate 83 per minute. He is afebrile. EXAMINATION OF THE HEART: S1 and S2. EXAMINATION OF LUNGS: Decreased breath sounds at bases. ABDOMEN: Soft, non-tender. Examination of lower extremities shows no evidence of edema. CRIMINAL INTELLIGENCE ANALYST exam is grossly intact. LABS: Labs show sodium of 133, potassium 4.3, chloride 104. CO2 is 19, BUN 63, serum creatinine 2.53, hemoglobin 12.1 g/dL. ASSESSMENT: 1. Acute kidney injury, acute tubular necrosis, currently improving. 2. Urinary tract infection with sepsis. Urine culture growing Escherichia coli. 3. Encephalopathy, metabolic, currently resolved. 4. Volume overload, now improved. 5. Lactic acidosis, improved. 6. Metabolic acidosis associated with renal failure and lactic acidosis on initial admission, maintained on oral sodium bicarb and improving. 7. Calculus on the left kidney in the lower pole, nonobstructive. 8. Chronic kidney disease with previous creatinine about 2 to 2.2 mg/dL, stage IV, secondary to nephrosclerosis and diabetic kidney disease. PLAN: Continue with oral sodium bicarb. Continue with current dose of oral Lasix. Avoid nephrotoxic agents. MMODL / IJN: [id number] /
[2020-03-14] MEDS: ALLOPURINOL 100 MG TAB PO SCH (16:18)
[2020-03-14] MEDS: ATORVASTATIN 40 MG TAB PO SCH (16:18)
[2020-03-14] MEDS: FINASTERIDE 5 MG TAB PO SCH (16:18)
[2020-03-14 16:55] LABS: Glucose,Whole Blood 134 mg/dL (75-99)
[2020-03-14 20:55] LABS: Glucose,Whole Blood 175 mg/dL (75-99)
[2020-03-14] MEDS: HYDROcodone/APAP 7.5-325MG 1 EACH TAB PO PRN (21:05)
[2020-03-14] MEDS: CYCLOBENZAPRINE 5 MG TAB PO SCH (21:08)
--- NOTE | 2020-03-14 22:43 | PN ---
PROGRESS NOTE DATE OF SERVICE: 03/14/2020 REASON FOR FOLLOWUP: E coli urinary tract infection complicated with sepsis. INTERVAL HISTORY: The patient is currently afebrile, has been breathing comfortably. The patient denies having any chest pain or shortness of breath or cough. No nausea, vomiting, abdominal pain or diarrhea. PHYSICAL EXAMINATION: Blood pressure 139/61 with a pulse of 80, temperature 98.3. He is 95% on room air. General description is an elderly male up in the chair in no distress. RESPIRATORY SYSTEM: Unlabored breathing. Clear to auscultation anteriorly. HEART: S1, S2. Regular rate and rhythm. ABDOMEN: Soft. No tenderness. LABS: Hemoglobin is 12.1, white count 4.3. BUN of 63, creatinine 2.53. Urine has been finalized with an E coli that is a sensitive pathogen. DIAGNOSTIC IMPRESSION AND PLAN: Patient with Escherichia coli urinary tract infection, admitted to hospital with sepsis. Organism is sensitive. We will discontinue Zosyn and start the patient on Rocephin 2 grams daily and monitor his clinical course closely. MMODL / IJN: [id number] /
[2020-03-15 07:15] LABS: Glucose,Whole Blood 82 mg/dL (75-99)
[2020-03-15] MEDS: INSULIN ASPART (NovoLOG) 100 UNIT/ML VIAL SQ SCH ×4 (07:16→21:32)
[2020-03-15] MEDS: ALBUTEROL HFA INHALER INHALATION PRN ×2 (07:41→11:22)
[2020-03-15] MEDS: CARBIDOPA-LEVODOPA 25-100 MG 1 EACH TAB PO SCH ×3 (08:30→21:29)
[2020-03-15] MEDS: INSULIN DETEMIR (LEVEMIR) 100 UNIT/ML SYR SQ SCH (08:30)
[2020-03-15] MEDS: CLOPIDOGREL 75 MG TAB PO SCH (08:30)
[2020-03-15] MEDS: TAMSULOSIN 0.4 MG CAP.ER.24H PO SCH (08:30)
[2020-03-15] MEDS: PREGABALIN 50 MG CAP PO SCH ×2 (08:30→21:28)
[2020-03-15] MEDS: GABAPENTIN 300 MG CAP PO SCH ×2 (08:30→21:29)
[2020-03-15] MEDS: METOPROLOL TARTRATE 25 MG TAB PO SCH ×2 (08:31→21:28)
[2020-03-15] MEDS: ASPIRIN 81 MG PO SCH (08:31)
[2020-03-15] MEDS: ISOSORBIDE MONONITRATE ER 30 MG TAB.ER.24H PO SCH (08:31)
[2020-03-15] MEDS: FUROSEMIDE 40 MG TAB PO SCH ×2 (08:31→17:32)
[2020-03-15] MEDS: PANTOPRAZOLE 40 MG TABLET PO SCH (08:31)
[2020-03-15] MEDS: SODIUM BICARBONATE TAB 650 MG TAB PO SCH (08:31)
[2020-03-15] MEDS: ENOXAPARIN 30 MG/0.3 ML SYRINGE SQ SCH (08:31)
[2020-03-15] MEDS: POLYETHYLENE GLYCOL 3350 17 GM POWD.PACK PO SCH (08:33)
[2020-03-15 08:57] LABS: Calcium 8.3 mg/dL (8.4-10.2); Potassium 4.4 mmol/L (3.5-5.1)
[2020-03-15] MEDS: DOCUSATE 100 MG CAP PO SCH ×2 (09:51→21:29)
--- NOTE | 2020-03-15 10:36 | P.DS ---
Providers Date of admission: 03/12/20 03:25 Expected date of discharge: 03/16/20 Attending physician: Dejan Adkins Consults: 03/12/20 03:51 Consult Physician Routine Consulting Provider: Chino Mar Consult Reason/Comments: known Do you want consulting provider notified?: Yes 03/12/20 11:23 Consult Physician Urgent Consulting Provider: Carmen Diaz Consult Reason/Comments: urinary retention Do you want consulting provider notified?: Yes 03/12/20 11:25 Consult Physician Routine Consulting Provider: Say Beltran Consult Reason/Comments: dyspnea Do you want consulting provider notified?: Yes 03/12/20 16:11 Consult Physician Routine Consulting Provider: Karyna Penn Consult Reason/Comments: pyelonephrisits, chronic UTI Do you want consulting provider notified?: Yes Primary care physician: [facility] Course: This is an 84-year-old male patient of Dr. 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 Originally the plan was to place a stent in the OM branch and the circumflex. 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 Gloria recently secondary to ongoing back pain, and dysuria, he has troubles of these for the past 2 months, with 2 oral antibiotics for urinary tract infection, patient gets better and then gets sick again, this is related to urinary frequency, dysuria and fever. Patient denies any nausea, patient denies any instrumentation of his prostate, he said that his Enlarged prostate, unknown PSA level, follows with Dr. Mar. Patient does not require any ctuler prior to admission.. He also has chronic kidney disease, follows by Dr. Diaz. He is now admitted for acute pyelonephritis with sepsis, IV Zosyn antibiotics, he required fluid resuscitation secondary to hypotension and lactic acidosis, he was given bolus of 500 mL in the emergency room with a subsequent rate of 130 mL an hour. [facility] the hospital, he subsequently went into respiratory distress, chest x-ray was ordered showing pulmonary edema, patient's IV fluid was changed to KVO, as he was very tachypneic, with respiratory rate of 40, IV Lasix 40 mg 1, with 40 mg every 12 hours over the next 2 doses. 03/12: Patient is doing much better, has clear urine, less sediments, pain in the right side has improved, no pain in the left leg, which is chronic. Patient has no nausea no vomiting, improvement of shortness of breath, patient is stable in ICU, most likely would be transferred out of ICU to remote telemetry, chest x- ray in the morning O2 sats are stable at room air 95-98%, vitals are stable, no tachypnea. Anti-proBNP of 3700, troponins 0.014, CK 45 A1c of 7.6 Cultures urine are still currently pending, blood cultures are negative, patient remains on IV Zosyn 03/14: Patient complains of shooting pain in his leg which has been chronic. Will add a fentanyl patch and plan to decrease IV pain medication. We will change gabapentin to Lyrica. Incentive spirometry and ALVARO hose added. [facility] Patient has been afebrile, heart rate 83, blood pressure 118/69, pulse ox 97% on room air. Repeat blood work reveals WBC 4.3, hemoglobin 12.1, platelet count 100. Sodium 133, potassium 4.3, chloride 104, CO2 19, BUN 63 and creatinine 2.53. Capillary blood glucose running between 92 and 230. Patient is followed by Dr. Penn and continued on IV Rocephin. Urine culture is positive for pansensitive E. coli. Blood culture shows no growth after 48 hours. Renal ultrasound reveals extrarenal pelvis on the right. No hydronephrosis on either side. Echogenic 4 mm focus of the left lower pole, possibly tiny nonobstructive calculus. Cutler catheter in place. Bladder elkins collapsed but very thickened possibly chronic bladder wall hypertrophy or cystitis. Dr. Mar is evaluated and followed. Suspect that his persistent urine infection is due to incomplete bladder emptying from the neurogenic bladder and can be evaluated as an outpatient. No gallegos to remove Cutler. 03/15: Patient has been afebrile, heart rate 76, blood pressure 153/80, pulse ox 93% on room air. Repeat BUN [address] Diaz has recommended continuing oral sodium bicarb and continuing oral dose of Lasix, avoid nephrotoxic agents. Patient voices no new complaints today. His left leg is not bothering him as much today. He states he has not been up and ambulating this morning. Cutler catheter remains in place and will be continued after discharge. We're currently looking at either [facility] or [facility] and possibly inpatient rehab. Social work is following. Consult with Dr. Figueroa added. Patient will be discharged once all arrangements are completed. 03/16: Patient denies any new complaints. Patient's discharge was delayed waiting for insurance authorization. He appeared was conducted with Dr. Adkins in his insurance company. Inpatient rehab was denied but authorization was given for subacute rehab. Patient was per be discharged to [facility] once all arrangements are completed. Discharge diagnoses: 1. Sepsis, septic shock secondary to acute pansensitive E. coli urinary tract infection. 2. Acute fluid overload secondary to IV fluid resuscitation. 3. Pyelonephritis, ruled out. No hydronephrosis. 4. BPH with neurogenic bladder secondary to radiation therapy. Cutler catheter to be maintained. 5. History of coronary artery disease. 6. Diabetes mellitus type 2 insulin requiring uncontrolled, hemoglobin A1c 7.6. 7. Acute kidney injury, acute tubular necrosis secondary to hypotension and hypoperfusion. 8. Non-gap metabolic acidosis. 9. Lactic acidosis secondary to sepsis. 10. Hyperkalemia secondary to acute kidney injury, improved. 11. Chronic kidney disease stage IV. 12. Chronic lower extremity neuropathy. 13. Parkinson's disease. 14. History of kidney stones, stable. 15. Chronic thrombocytopenia, stable. 16. Hyperlipidemia 17. Hyperuricemia 18. COVID-19 infection not present. Discharge plan: [facility] once arrangements are completed. Impression and plan of care have been directed as dictated by the signing physician. Missy Douglas nurse practitioner acting as scribe for signing physician. Patient Condition at Discharge: Good Plan - Discharge Summary New Discharge Prescriptions: New Docusate [Colace] 100 mg PO BID cap fentaNYL 25MCG/HR PATCH [Duragesic 25MCG/HR] 1 patch TRANSDERM Q72H #1 patch Furosemide [Lasix] 40 mg PO BID@0900,1600 tab Pregabalin [Lyrica] 50 mg PO BID #6 cap Gabapentin [Neurontin] 300 mg PO BID #6 cap HYDROcodone/APAP 7.5-325MG [[place] 7.5-325] 1 each PO Q6HR PRN #12 tab PRN Reason: Pain INSULIN ASPART (NovoLOG) [NovoLOG (formulary)] 0 unit SQ ACHS vial Clopidogrel [Plavix] 75 mg PO DAILY tab Sodium Bicarbonate Tab 650 mg PO BID tab Acetaminophen Tab [Tylenol] 650 mg PO Q6HR PRN tab PRN Reason: Fever And/ Or Pain Albuterol Inhaler [Ventolin Hfa Inhaler] 2 puff INHALATION Q4HR PRN puff PRN Reason: Shortness Of Breath Ciprofloxacin HCl [Cipro] 250 mg PO DAILY 10 Days #10 tab Continue rOPINIRole HCL [Requip] 0.5 mg PO BID Cyclobenzaprine [Flexeril] 10 mg PO HS Allopurinol [Zyloprim] 100 mg PO W/SUPPER Cetirizine HCl [Zyrtec] 10 mg PO DAILY Tamsulosin HCl [Flomax] 0.4 mg PO DAILY Metoprolol Tartrate [Lopressor] 25 mg PO BID Finasteride [Proscar] 5 mg PO W/SUPPER Isosorbide Mononitrate ER [Imdur] 30 mg PO DAILY #30 tab.er.24h Nitroglycerin Sl Tabs [Nitrostat] 0.4 mg SUBLINGUAL Q5M PRN #25 tab PRN Reason: Chest Pain Ergocalciferol [Vitamin D2 (DRISDOL)] 50,000 unit PO Q14D Aspirin 81 mg PO DAILY Insulin Glargine,Hum.rec.anlog [Toujeo Solostar] 50 units SQ DAILY Atorvastatin [Lipitor] 40 mg PO W/SUPPER Carbidopa-Levodopa 25-100 mg [Sinemet 25-100 mg] 1 tab PO TID Polyethylene Glycol 3350 [Miralax] 17 gm PO DAILY #0 powd.pack Calcitriol [Rocaltrol] 0.25 mg PO Q7D Discontinued Furosemide [Lasix] 20 mg PO BID Gabapentin [Neurontin] 600 mg PO BID Insulin Aspart [NovoLOG Flexpen] See Protocol SQ AC-TID PRN PRN Reason: Blood Sugar - High Lisinopril [Zestril] 2.5 mg PO HS Hydrocodone/Acetaminophen [[place] 10-325] 1 tab PO Q6H PRN PRN Reason: Pain Discharge Medication List Allopurinol [Zyloprim] 100 mg PO W/SUPPER 06/02/16 [History] Cyclobenzaprine [Flexeril] 10 mg PO HS 06/02/16 [History] rOPINIRole HCL [Requip] 0.5 mg PO BID 06/02/16 [History] Cetirizine HCl [Zyrtec] 10 mg PO DAILY 05/26/18 [History] Finasteride [Proscar] 5 mg PO W/SUPPER 05/26/18 [History] Metoprolol Tartrate [Lopressor] 25 mg PO BID 05/26/18 [History] Tamsulosin HCl [Flomax] 0.4 mg PO DAILY 05/26/18 [History] Isosorbide Mononitrate ER [Imdur] 30 mg PO DAILY #30 tab.er.24h 06/04/18 [Rx] Nitroglycerin Sl Tabs [Nitrostat] 0.4 mg SUBLINGUAL Q5M PRN #25 tab 06/04/18 [Rx] Aspirin 81 mg PO DAILY 07/18/19 [History] Atorvastatin [Lipitor] 40 mg PO W/SUPPER 07/18/19 [History] Carbidopa-Levodopa 25-100 mg [Sinemet 25-100 mg] 1 tab PO TID 07/18/19 [History] Ergocalciferol [Vitamin D2 (DRISDOL)] 50,000 unit PO Q14D 07/18/19 [History] Insulin Glargine,Hum.rec.anlog [Toujeo Solostar] 50 units SQ DAILY 07/18/19 [History] Polyethylene Glycol 3350 [Miralax] 17 gm PO DAILY #0 powd.pack 07/21/19 [Rx] Calcitriol [Rocaltrol] 0.25 mg PO Q7D 09/28/19 [History] Acetaminophen Tab [Tylenol] 650 mg PO Q6HR PRN tab 03/15/20 [Rx] Albuterol Inhaler [Ventolin Hfa Inhaler] 2 puff INHALATION Q4HR PRN puff 03/15/20 [Rx] Ciprofloxacin HCl [Cipro] 250 mg PO DAILY 10 Days #10 tab 03/15/20 [Rx] Clopidogrel [Plavix] 75 mg PO DAILY tab 03/15/20 [Rx] Docusate [Colace] 100 mg PO BID cap 03/15/20 [Rx] Furosemide [Lasix] 40 mg PO BID@0900,1600 tab 03/15/20 [Rx] Gabapentin [Neurontin] 300 mg PO BID #6 cap 03/15/20 [Rx] HYDROcodone/APAP 7.5-325MG [[place] 7.5-325] 1 each PO Q6HR PRN #12 tab 03/15/20 [Rx] INSULIN ASPART (NovoLOG) [NovoLOG (formulary)] 0 unit SQ ACHS vial 03/15/20 [Rx] Pregabalin [Lyrica] 50 mg PO BID #6 cap 03/15/20 [Rx] Sodium Bicarbonate Tab 650 mg PO BID tab 03/15/20 [Rx] fentaNYL 25MCG/HR PATCH [Duragesic 25MCG/HR] 1 patch TRANSDERM Q72H #1 patch 03/15/20 [Rx] Follow up Appointment(s)/Referral(s): Dejan Adkins MD [Primary Care Provider] - 1 Week Discharge Disposition: TRANSFER TO SNF/ECF
[2020-03-15 11:43] LABS: Glucose,Whole Blood 160 mg/dL (75-99)
--- NOTE | 2020-03-15 12:54 | P.PN ---
Subjective Progress Note Date: 03/15/20 Principal diagnosis: Sepsis secondary to gram-negative bacillus, E. coli urinary tract infection 84-year-old male patient admitted to the intensive care unit because of a UTI and sepsis. The patient was inquired distress as the patient was tachycardic and tachypneic. He had also a component of anion gap metabolic acidosis. He was in sepsis at the time of admission. He got transferred to the intensive care unit. He received IV fluids and the patient was also covered with broad- spectrum antibiotics including IV Zosyn. The patient also required pressors which was given to him in the form of norepinephrine infusion. In terms of IV fluids, he was maintained on a bicarb infusion. Urine culture showing gram- negative bacillus and the final cultures sensitivities are not completely resulted. He tested negative for colon 19. The patient also had an acute kidney injury and subsequent workup with a CAT scan of the abdomen and pelvis done on 03/12/2020 showed evidence of bladder infections/cystitis with background wall thickening related to OBSTRUCTION from BPH. There was no intraluminal calculi noted. Urology was consulted regarding this issue and no immediate intervention was recommended based on the evaluation. The patient didn't show any hydronephrosis or renal stones. Note that the patient's creatinine continues to be elevated and the patient has an acute on top of chronic kidney disease as the patient has stage III chronic kidney failure. Urine output continues to improve. The patient today is still on a bicarb infusion. The patient is producing adequate amount of urine output. He is feeling well. Has been downgraded to telemetry, medical surgical unit. He is having pain in his lower extremities. He has chronic neuropathy. Claude has b een added. He is also on Neurontin. He is still on a combination of [place] and morphine on estrogen basis for pain control. He is on 50 units of Levemir insulin along with a sliding scale coverage. 03/15/2020 patient seen in follow-up on general medical floor, he is awake and alert, in no acute distress, he sitting up in the recliner, still has a urinary catheter in place for urinary retention, and mild component of obstructive uropathy without hydronephrosis. He is awake and alert, in no acute distress, no altered mentation, vital signs are stable, denies any difficulty breathing. Urine culture came back positive for E. coli, patient is on Rocephin. Lung sounds reveal a few bibasilar crackles. Working on incentive spirometer. Objective - Vital Signs Vital signs: Vital Signs Temp 98.1 F 03/15/20 07:10 Pulse 75 03/15/20 08:00 Resp 16 03/15/20 08:00 BP 133/80 03/15/20 07:10 Pulse Ox 93 L 03/15/20 07:10 Intake & Output 03/14/20 03/15/20 03/15/20 18:59 06:59 18:59 Intake Total 100 0 Output Total 1620 400 Balance -1520 -400 Intake: IV 0 Sodium Chloride 0.9% 1, 0 000 ml @ 20 mls/hr IV . Q24H RUPERTO Rx#:[id number] Intake, IV Titration 100 Amount Sodium Chloride 0.45% 1, 100 000 ml @ 50 mls/hr IV . Q22H RUPERTO with Sodium Bicarb (1 Meq/ml) 100 ml Rx#:[id number] Output: Urine 1620 400 Other: Voiding Method Indwelling Catheter Indwelling Catheter - Exam GENERAL EXAM: Alert, very pleasant, 84-year-old white male, on room air with pulse ox of 90-95%, comfortable in no apparent distress. HEAD: Normocephalic/atraumatic. EYES: Normal reaction of pupils, equal size. Conjunctiva pink, sclera white. NOSE: Clear with pink turbinates. THROAT: No erythema or exudates. NECK: No masses, no JVD, no thyroid enlargement, no adenopathy. CHEST: No chest wall deformity. Symmetrical expansion. LUNGS: Equal air entry with no crackles, wheeze, rhonchi or dullness. CVS: Regular rate and rhythm, normal S1 and S2, no gallops, no murmurs, no rubs ABDOMEN: Soft, nontender. No hepatosplenomegaly, normal bowel sounds, no guarding or rigidity. EXTREMITIES: No clubbing, no edema, no cyanosis, 2+ pulses and upper and lower extremities. MUSCULOSKELETAL: Muscle strength and tone normal. SPINE: No scoliosis or deformity SKIN: No rashes CENTRAL NERVOUS SYSTEM: Alert and oriented -3. No focal deficits, tone is normal in all 4 extremities. PSYCHIATRIC: Alert and oriented -3. Appropriate affect. Intact judgment and insight. - Labs CBC & Chem 7: 03/14/20 03:47 03/15/20 08:26 Labs: Abnormal Lab Results - Last 24 Hours (Table) 03/12/20 03/14/20 03/14/20 Range/Units 08:44 16:54 20:54 BUN (9-20) mg/dL Creatinine (0.66-1.25) mg/dL POC Glucose (mg/dL) 134 H 175 H (75-99) mg/dL Calcium (8.4-10.2) mg/dL Procalcitonin 0.62 H (0.02-0.09) ng/mL 03/15/20 03/15/20 Range/Units 08:26 11:35 BUN 60 H (9-20) mg/dL Creatinine 2.51 H (0.66-1.25) mg/dL POC Glucose (mg/dL) 160 H (75-99) mg/dL Calcium 8.3 L (8.4-10.2) mg/dL Procalcitonin (0.02-0.09) ng/mL Microbiology - Last 24 Hours (Table) 03/12/20 01:43 Blood Culture - Preliminary Blood No Growth after 72 hours 03/12/20 02:12 Urine Culture - Final Urine,Voided Escherichia coli Assessment and Plan Plan: Assessment: 1 sepsis secondary to gram-negative bacillus. The patient had a acute cystitis with secondary sepsis/septic shock. Final cultures and sensitivities are not available although patient back in 2016 showed Enterobacter aerogenesis. The patient currently on IV Zosyn. The patient is hemodynamically stable. The patient is improving. The patient is afebrile. Urine culture showed E. coli 2 BPH with a mild component of obstructive uropathy without hydronephrosis and urology evaluated the patient without any need for surgical intervention 3 hypotension secondary to above 4 chronic stage III kidney disease 5 acute kidney injury on top of chronic renal failure secondary to above, and acute component is improving and creatinine is down to 2.5 6 BPH 7 coronary artery disease 8 Parkinson's disease 9 hyperlipidemia 10 hyperuricemia 11 diabetes mellitus currently on Levemir insulin 50 units daily in addition to a sliding scale coverage 12 non-Gap metabolic acidosis currently on bicarb infusion, resolved Plan: Continue current medical treatment, final urine culture showed E. coli, hemodynamically patient stable, he is currently on Rocephin, no fever or chills, acute events overnight, no difficulty breathing, discharge planning is in progress for discharge to [facility] outpatient rehab and his [place]ap[place] catheter is going to stay in place for obstructive uropathy. I performed a history & physical examination of the patient and discussed their management with my nurse practitioner, Rosalba Garza. I reviewed the nurse practitioner's note and agree with the documented findings and plan of care. Lung sounds are positive for diminished breath sounds. The findings and the impression was discussed with the patient. I attest to the documentation by the nurse practitioner. Time with Patient: Less than 30
[2020-03-15] MEDS: HYDROcodone/APAP 7.5-325MG 1 EACH TAB PO PRN (14:10)
--- NOTE | 2020-03-15 14:26 | PN ---
PROGRESS NOTE Patient is seen for followup for acute kidney injury. The patient's renal function has improved. He is doing well. PHYSICAL EXAMINATION: Blood pressure is 133/80, heart rate 76 per minute, he is afebrile. Examination of the heart S1, S2. Examination of the lungs, decreased breath sounds at the bases. Abdomen is soft, nontender. Examination of the lower extremities shows no significant edema, trace ankle edema is noted. TIPPLE OILER exam grossly intact. LABS: Show sodium 137, potassium 4.4, chloride 101, BUN 60, creatinine 2.51. ASSESSMENT: 1. Acute kidney injury ATN currently improving. 2. Sepsis from UTI, currently stable. 3. Escherichia coli urinary tract infection, maintained on antibiotics. 4. Chronic kidney disease stage 4 with previous creatinine of around 2 mg/dL secondary to nephrosclerosis and diabetic kidney disease. 5. Metabolic acidosis, now resolved. We can hold off on the sodium bicarb. 6. Volume overload maintained on oral Lasix, currently improved. Continue current dose of Lasix. PLAN: DC Stapleton catheter, DC sodium bicarb. Repeat labs in a.m. MMODL / IJN: [id number] /
--- NOTE | 2020-03-15 14:32 | PN ---
PROGRESS NOTE DATE OF SERVICE: 03/15/2020 REASON FOR FOLLOWUP: E coli, UTI infection with sepsis. INTERVAL HISTORY: The patient is currently afebrile, she is breathing comfortably. Denies having any chest pain. No shortness of breath or cough. No nausea, vomiting. No abdominal pain, no diarrhea. PHYSICAL EXAMINATION: Blood pressure 133/80 with a pulse of 75, temperature 98.1, he is 93% on room air. General description is an elderly male, up in the chair in no distress. RESPIRATORY SYSTEM: Unlabored breathing, clear to auscultation anteriorly. HEART: S1, S2. Regular rate and rhythm. ABDOMEN: Soft, no tenderness. LABS: Creatinine is 2.51. DIAGNOSTIC IMPRESSION AND PLAN: Patient with an E coli UTI infection. Overall, sensitive pathogen. Did well on Rocephin. Finish therapy with oral Cipro 500 mg twice a day for 10 days. Plan of care was discussed with the nurse practitioner for admitting team working on discharge. MMODL / IJN: [id number] /
[2020-03-15] MEDS: ALLOPURINOL 100 MG TAB PO SCH (16:47)
[2020-03-15] MEDS: FINASTERIDE 5 MG TAB PO SCH (16:47)
[2020-03-15] MEDS: ATORVASTATIN 40 MG TAB PO SCH (16:47)
[2020-03-15 16:57] LABS: Glucose,Whole Blood 220 mg/dL (75-99)
[2020-03-15 21:15] LABS: Glucose,Whole Blood 174 mg/dL (75-99)
[2020-03-15] MEDS: CYCLOBENZAPRINE 5 MG TAB PO SCH (21:36)
[2020-03-16 06:45] LABS: Glucose,Whole Blood 164 mg/dL (75-99)
[2020-03-16 08:08] VITALS: BP 125/74; PULSE 75; RESP 20; TEMP 98.8
[2020-03-16 08:15] LABS: Potassium 4.7 mmol/L (3.5-5.1)
[2020-03-16] MEDS: POLYETHYLENE GLYCOL 3350 17 GM POWD.PACK PO SCH (08:49)
[2020-03-16] MEDS: INSULIN DETEMIR (LEVEMIR) 100 UNIT/ML SYR SQ SCH (08:50)
[2020-03-16] MEDS: INSULIN ASPART (NovoLOG) 100 UNIT/ML VIAL SQ SCH ×2 (08:50→12:27)
[2020-03-16] MEDS: GABAPENTIN 300 MG CAP PO SCH (08:51)
[2020-03-16] MEDS: METOPROLOL TARTRATE 25 MG TAB PO SCH (08:51)
[2020-03-16] MEDS: ASPIRIN 81 MG PO SCH (08:51)
[2020-03-16] MEDS: ENOXAPARIN 30 MG/0.3 ML SYRINGE SQ SCH (08:51)
[2020-03-16] MEDS: FUROSEMIDE 40 MG TAB PO SCH (08:51)
[2020-03-16] MEDS: PREGABALIN 50 MG CAP PO SCH (08:51)
[2020-03-16] MEDS: PANTOPRAZOLE 40 MG TABLET PO SCH (08:52)
[2020-03-16] MEDS: DOCUSATE 100 MG CAP PO SCH (08:52)
[2020-03-16] MEDS: TAMSULOSIN 0.4 MG CAP.ER.24H PO SCH (08:52)
[2020-03-16] MEDS: CARBIDOPA-LEVODOPA 25-100 MG 1 EACH TAB PO SCH (08:52)
[2020-03-16] MEDS: ISOSORBIDE MONONITRATE ER 30 MG TAB.ER.24H PO SCH (08:52)
[2020-03-16] MEDS: CLOPIDOGREL 75 MG TAB PO SCH (08:52)
[2020-03-16] MEDS: ALBUTEROL HFA INHALER INHALATION PRN (09:26)
--- NOTE | 2020-03-16 10:19 | P.CONS ---
History of Present Illness - Chief Complaint medical debility - History of Present Illness I had the opportunity to see patient for inpatient rehab consultation with regard to medical debility. He was admitted to [facility] March 12 with UTI and sepsis. Seen in consultation by Dr. Littlejohn and Dr. Penn. CT abdomen and pelvis demonstrates pancreatic atrophy as well as renal cortical thickening. Chest x-ray with mild CHF and mild left pleural effusion. Ultrasound abdomen in bladder demonstrates left renal calculus and right extra pelvis. PT reports minimal assistance for bed mobility, transfers, gait 80 feet with standard walker and balance poor. OT reports supervision for upper dressing and minimal assistance for lower dressing, bathing, toileting and functional mobility/transfers. Previous functional history as elicited from patient: 84-year-old right-handed white male who is snf 3 floor home with . Patient can help with the cooking and laundry O wall though does most of it. Patient dependent driving, sitdown shower and gait with quad cane or a roller walker. PMD Dr. Adkins. Denies tobacco or alcohol. Family history cardiac disease and AK in father and cancer in mother. Review of Systems Review of systems: ENT: Denies sneezes or discharge. Eyes: Denies discharge or photophobia. Cardiac: Denies chest pain or palpitation. Pulmonary: Denies cough or shortness of breath. Gastrointestinal: Denies nausea, emesis, constipation, diarrhea. Genitourinary: Denies discharge or frequency. Musculoskeletal: Denies muscle or bone aches. Neurologic: at least mild generalized weakness. Endocrine: Denies shakes or sweats. Oncology: Denies cancers. Dermatologic: Denies rash, itching, pruritus. ALLERGY/immunology: Denies sneezes, rashes. Past Medical History Past Medical History: Coronary Artery Disease (CAD), Cancer, Chest Pain / Angina, Diabetes Mellitus, Hyperlipidemia, Hypertension, Osteoarthritis (OA), Prostate Disorder, Renal Disease Additional Past Medical History / Comment(s): parkinson's, hx gout, hx basal cell carcinoma on head, melanoma lt shoulder, hx kidney stones, currently 2 bladder stones, hx migraines, constipation, History of Any Multi-Drug Resistant Organisms: MRSA Year Discovered:: 2004 MDRO Source:: rt shoulder Past Surgical History: Back Surgery, Cholecystectomy, Ear Surgery, Heart Catheterization, Heart Catheterization With Stent, Joint Replacement, Orthopedic Surgery, Tonsillectomy Additional Past Surgical History / Comment(s): cody knee replacement, cody. carpal tunnel release, cody shoulder rotator cuff repair, back surgery x5, (laminectomy, laminectomy with fusion, laminectomy and partial removal of fusion x2) lumbar fusionL4,L5, lt ear surgery x3 with replacement malleus/incus/stapes, revision of tympanoplasty, wide excision melanoma left shoulder, I&D rt thumb, lithotripsy,cystoscopy with kidney stone retrieved, cody cataracts, face and left ear multiple lesion removal, oral surgery, one cardiac stent, cody knee arthroscopy, debridement of rt shoulder x 2 with partial closure of rt shoulder, Past Anesthesia/Blood Transfusion Reactions: Family History of Problems w/ Anesthesia Additional Past Anesthesia/Blood Transfusion Reaction / Comm: hx vertigo, brother had issues-not sure what it was Date of Last Stent Placement:: 06/2018 Past Psychological History: No Psychological Hx Reported Smoking Status: Never smoker Past Alcohol Use History: None Reported Past Drug Use History: None Reported - Past Family History Mother Family Medical History: Cancer Father Family Medical History: Coronary Artery Disease (CAD), Hypertension Brother(s) Family Medical History: Cancer Sister(s) Family Medical History: Cancer, COPD, Diabetes Mellitus, Hypertension Medications and Allergies Home Medications Medication Instructions Recorded Confirmed Type Allopurinol [Zyloprim] 100 mg PO W/SUPPER 06/02/16 03/12/20 History Cyclobenzaprine [Flexeril] 10 mg PO HS 06/02/16 03/12/20 History rOPINIRole HCL [Requip] 0.5 mg PO BID 06/02/16 03/12/20 History Cetirizine HCl [Zyrtec] 10 mg PO DAILY 05/26/18 03/12/20 History Finasteride [Proscar] 5 mg PO W/SUPPER 05/26/18 03/12/20 History Metoprolol Tartrate [Lopressor] 25 mg PO BID 05/26/18 03/12/20 History Tamsulosin HCl [Flomax] 0.4 mg PO DAILY 05/26/18 03/12/20 History Isosorbide Mononitrate ER [Imdur] 30 mg PO DAILY #30 tab.er.24h 06/04/18 03/12/20 Rx Nitroglycerin Sl Tabs [Nitrostat] 0.4 mg SUBLINGUAL Q5M PRN #25 tab 06/04/18 03/12/20 Rx Aspirin 81 mg PO DAILY 07/18/19 03/12/20 History Atorvastatin [Lipitor] 40 mg PO W/SUPPER 07/18/19 03/12/20 History Carbidopa-Levodopa 25-100 mg 1 tab PO TID 07/18/19 03/12/20 History [Sinemet 25-100 mg] Ergocalciferol [Vitamin D2 50,000 unit PO Q14D 07/18/19 03/12/20 History (DRISDOL)] Insulin Glargine,Hum.rec.anlog 50 units SQ DAILY 07/18/19 03/12/20 History [Toujeo Solostar] Polyethylene Glycol 3350 [Miralax] 17 gm PO DAILY #0 powd.pack 07/21/19 03/12/20 Rx Calcitriol [Rocaltrol] 0.25 mg PO Q7D 09/28/19 03/12/20 History Acetaminophen Tab [Tylenol] 650 mg PO Q6HR PRN tab 03/15/20 Rx Albuterol Inhaler [Ventolin Hfa 2 puff INHALATION Q4HR PRN puff 03/15/20 Rx Inhaler] Ciprofloxacin HCl [Cipro] 250 mg PO DAILY 10 Days #10 tab 03/15/20 Rx Clopidogrel [Plavix] 75 mg PO DAILY tab 03/15/20 Rx Docusate [Colace] 100 mg PO BID cap 03/15/20 Rx Furosemide [Lasix] 40 mg PO BID@0900,1600 tab 03/15/20 Rx Gabapentin [Neurontin] 300 mg PO BID #6 cap 03/15/20 Rx HYDROcodone/APAP 7.5-325MG [Pierson 1 each PO Q6HR PRN #12 tab 03/15/20 Rx 7.5-325] INSULIN ASPART (NovoLOG) [NovoLOG 0 unit SQ ACHS vial 03/15/20 Rx (formulary)] Pregabalin [Lyrica] 50 mg PO BID #6 cap 03/15/20 Rx Sodium Bicarbonate Tab 650 mg PO BID tab 03/15/20 Rx fentaNYL 25MCG/HR PATCH [Duragesic 1 patch TRANSDERM Q72H #1 patch 03/15/20 Rx 25MCG/HR] Allergies Allergy/AdvReac Type Severity Reaction Status Date / Time baclofen AdvReac Severe Nausea & Verified 03/12/20 09:09 Vomiting hydromorphone HCl AdvReac Nausea & Verified 03/12/20 09:09 [From Dilaudid] Vomiting morphine AdvReac Hallucinati Verified 03/12/20 09:09 ons vancomycin AdvReac Chills, Verified 03/12/20 09:09 Sweating, Did not feel well Physical Exam Vitals: Vital Signs Temp Pulse Pulse Resp BP Pulse Ox 03/16/20 07:00 98.8 F 75 20 125/74 91 L 03/16/20 01:15 98.5 F 73 112/55 95 03/15/20 20:00 98.3 F 83 18 145/77 95 03/15/20 16:00 75 73 16 03/15/20 14:03 97.8 F 73 16 124/66 95 Intake and Output 03/15/20 03/16/20 03/16/20 22:59 06:59 14:59 Intake Total 540 Output Total 1949 1849 Balance -1410 -1849 Intake: Oral 540 Output: Urine 1949 1849 Other: Voiding Method Indwelling Catheter # Bowel Movements 1 1 Skin: atrophic, intact. General: Medium build and comfortable appearance. Head: Normocephalic, atraumatic. Eyes: Symmetric. Pupils equal round. Ears: Symmetric. Hearing within normal limits. Mouth: Clear. Neck: Supple. Carotid without bruit. Cardiac: Regular rate and rhythm. Lungs: Clear anteriorly and posteriorly. Abdomen: Soft active nontender. Extremities: Normal tone. Neurological: Mental status: Alert, cooperative, pleasant. Cranial nerves: Symmetric facial tone and trapezius. Motor: Normal strength and isolation all 4 limbs. Sensation: Intact throughout. DTRs: Symmetric and equal throughout. Mobility: Stands from Radha chair without assistance but is wobbly balance. Results CBC & Chem 7: 03/14/20 03:47 03/16/20 07:34 Labs: Abnormal Lab Results - Last 24 Hours (Table) 03/15/20 03/15/20 03/15/20 Range/Units 11:35 16:49 21:14 Sodium (137-145) mmol/L BUN (9-20) mg/dL Creatinine (0.66-1.25) mg/dL Glucose (74-99) mg/dL POC Glucose (mg/dL) 160 H 220 H 174 H (75-99) mg/dL Calcium (8.4-10.2) mg/dL 03/16/20 03/16/20 Range/Units 06:43 07:34 Sodium 136 L (137-145) mmol/L BUN 66 H (9-20) mg/dL Creatinine 2.60 H (0.66-1.25) mg/dL Glucose 137 H (74-99) mg/dL POC Glucose (mg/dL) 164 H (75-99) mg/dL Calcium 8.0 L (8.4-10.2) mg/dL Microbiology - Last 24 Hours (Table) 03/12/20 01:43 Blood Culture - Preliminary Blood No Growth after 96 hours Assessment and Plan (1) UTI (urinary tract infection) Current Visit: Yes Status: Acute Code(s): N39.0 - URINARY TRACT INFECTION, SITE NOT SPECIFIED SNOMED Code(s): 42300598 Plan: impression: 1. Medical debility. 2. UTI with sepsis. 3. Hypertension. 4. osteoarthritis. 5. Coronary artery disease with history of angina. 6. Diabetes. 7. Chronic kidney disease. Comments and plan: At this time PT and OT are ongoing. Safety concerns are noted. Patient does report that he has heard from his insurance was denied inpatient rehab. Patient is anticipating SNF placement at this time and at this time appears to be a good idea as patient standing balance is quite wobbly and appears in would fall.
[2020-03-16 11:33] LABS: Glucose,Whole Blood 222 mg/dL (75-99)
--- NOTE | 2020-03-16 11:38 | P.PN ---
Subjective Progress Note Date: 03/15/20 This is an 84-year-old male patient of Dr. 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 Originally the plan was to place a stent in the OM branch and the circumflex. 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 Gloria recently secondary to ongoing back pain, and dysuria, he has troubles of these for the past 2 months, with 2 oral antibiotics for urinary tract infection, patient gets better and then gets sick again, this is related to urinary frequency, dysuria and fever. Patient denies any nausea, patient denies any instrumentation of his prostate, he said that his Enlarged prostate, unknown PSA level, follows with Dr. Mar. Patient does not require any cutler prior to admission.. He also has chronic kidney disease, follows by Dr. Diaz. He is now admitted for acute pyelonephritis with sepsis, IV Zosyn antibiotics, he required fluid resuscitation secondary to hypotension and lactic acidosis, he was given bolus of 500 mL in the emergency room with a subsequent rate of 130 mL an hour. Overnight one the hospital, he subsequently went into respiratory distress, chest x-ray was ordered showing pulmonary edema, patient's IV fluid was changed to KVO, as he was very tachypneic, with respiratory rate of 40, IV Lasix 40 mg 1, with 40 mg every 12 hours over the next 2 doses. 03/12: Patient is doing much better, has clear urine, less sediments, pain in the right side has improved, no pain in the left leg, which is chronic. Patient has no nausea no vomiting, improvement of shortness of breath, patient is stable in ICU, most likely would be transferred out of ICU to remote telemetry, chest x- ray in the morning O2 sats are stable at room air 95-98%, vitals are stable, no tachypnea. Anti-proBNP of 3700, troponins 0.014, CK 45 A1c of 7.6 Cultures uri ne are still currently pending, blood cultures are negative, patient remains on IV Zosyn 03/14: Patient complains of shooting pain in his leg which has been chronic. Will add a fentanyl patch and plan to decrease IV pain medication. We will change gabapentin to Lyrica. Incentive spirometry and ALVARO hose added. Patient will be transferred to [facility] floor. Patient has been afebrile, heart rate 83, blood pressure 118/69, pulse ox 97% on room air. Repeat blood work reveals WBC 4.3, hemoglobin 12.1, platelet count 100. Sodium 133, potassium 4.3, chloride 104, CO2 19, BUN 63 and creatinine 2.53. Capillary blood glucose running between 92 and 230. Patient is followed by Dr. Penn and continued on IV Rocephin. Urine culture is positive for pansensitive E. coli. Blood culture shows no growth after 48 hours. Renal ultrasound reveals extrarenal pelvis on the right. No hydronephrosis on either side. Echogenic 4 mm focus of the left lower pole, possibly tiny nonobstructive calculus. Cutler catheter in place. Bladder elkins collapsed but very thickened possibly chronic bladder wall hypertrophy or cystitis. Dr. Mar is evaluated and followed. Suspect that his persistent urine infection is due to incomplete bladder emptying from the neurogenic bladder and can be evaluated as an outpatient. No gallegos to remove Cutler. 03/15: Patient has been afebrile, heart rate 76, blood pressure 153/80, pulse ox 93% on room air. Repeat BUN [address] Diaz has recommended continuing oral sodium bicarb and continuing oral dose of Lasix, avoid nephrotoxic agents. Patient voices no new complaints today. His left leg is not bothering him as much today. He states he has not been up and ambulating this morning. Cutler catheter remains in place and will be continued after d ischarge. We're currently looking at either [facility] or [facility] and possibly inpatient rehab. Social work is following. Consult with Dr. Figueroa added. Patient will be discharged once all arrangements are completed. Objective - Vital Signs Vital signs: Vital Signs Temp 97.9 F 03/15/20 03:27 Pulse 75 03/15/20 03:27 Resp 19 03/15/20 03:27 BP 116/66 03/15/20 03:27 Pulse Ox 90 L 06/02/20 03:27 Intake & Output 03/14/20 03/15/20 03/15/20 18:59 06:59 18:59 Intake Total 100 0 Output Total 1620 400 Balance -1520 -400 Intake: IV 0 Sodium Chloride 0.9% 1, 0 000 ml @ 20 mls/hr IV . Q24H RUPERTO Rx#:[id number] Intake, IV Titration 100 Amount Sodium Chloride 0.45% 1, 100 000 ml @ 50 mls/hr IV . Q22H RUPERTO with Sodium Bicarb (1 Meq/ml) 100 ml Rx#:[id number] Output: Urine 1620 400 Other: Voiding Method Indwelling Catheter - Exam Review of Systems Constitutional: No fever, no chills, no night sweats. No weight change. No weakness, fatigue or lethargy. No daytime sleepiness. EENT: No headache. No blurred vision or double vision, no loss of vision. No loss of Hearing, no ringing in the ears, no dizziness. No nasal drainage or congestion. No epistaxis. No sore throat. Lungs: No shortness of breath, cough, no sputum production. No wheezing. Cardiovascular: No chest pain, no lower extremity edema. No palpitations. No p aroxysmal nocturnal dyspnea. No orthopnea. No lightheadedness or dizziness. No syncopal episodes. Abdominal: No abdominal pain. No nausea, vomiting. No diarrhea. No constipation. No bloody or tarry stools.. No loss of appetite. Genitourinary: No dysuria, increased frequency, urgency. Reports urinary retention-cutler. Musculoskeletal: No myalgias. No muscle weakness, no gait dysfunction, no frequent falls. No back pain. No neck pain. Reports shooting pain left leg. Integumentary: No wounds, no lesions. No rash or pruritus. No unusual bruising. No change in hair or nails. Neurologic: No aphasia. No facial droop. No change in mentation. No head injury. No headache. No paralysis. No paresthesia. Psychiatric: No depression. No anxiety. No mood swings. Endocrine: No abnormal blood sugars. No weight change. No excessive sweating or thirst. No cold intolerance. Physical examination - Constitutional General appearance: Present: cooperative, no acute distress, obese, resting in the ICU bed - EENT Eyes: Present: anicteric sclerae, EOMI, PERRLA, dentition normal, normal appearance ENT: Present: NA/AT, normal oropharynx - Respiratory Respiratory: bilateral: CTA, negative: diminished, dullness, rales, rhonchi, prolonged expiration - Cardiovascular Rhythm: regular Heart sounds: normal: S1, S2 Abnormal Heart Sounds: Absent: systolic murmur, diastolic murmur, rub, S3 Gallop, S4 Gallop, click, other - Gastrointestinal General gastrointestinal: Present: normal bowel sounds, soft - Integumentary Integumentary: Present: normal, normal turgor - Neurologic Neurologic: Present: CNII-XII intact - Musculoskeletal Musculoskeletal: Present: gait normal, strength equal bilaterally - Psychiatric Psychiatric: Present: A&O x's 3, appropriate affect - Labs CBC & Chem 7: 03/14/20 03:47 03/16/20 07:34 Labs: Abnormal Lab Results - Last 24 Hours (Table) 03/12/20 03/14/20 03/14/20 Range/Units 08:44 11:53 16:54 POC Glucose (mg/dL) 141 H 134 H (75-99) mg/dL Procalcitonin 0.62 H (0.02-0.09) ng/mL 03/14/20 Range/Units 20:54 POC Glucose (mg/dL) 175 H (75-99) mg/dL Procalcitonin (0.02-0.09) ng/mL Microbiology - Last 24 Hours (Table) 03/12/20 01:43 Blood Culture - Preliminary Blood No Growth after 72 hours 03/12/20 02:12 Urine Culture - Final Urine,Voided Escherichia coli Assessment and Plan Plan: 1. Sepsis, septic shock secondary to acute pansensitive E. coli urinary tract infection. Consults appreciated with Dr. Mar, Dr. Penn, intelligence chief. Patient is currently on ceftriaxone. 2. Acute fluid overload secondary to IV fluid resuscitation. Continue oral Lasix. 3. Pyelonephritis, ruled out. No hydronephrosis. 4. BPH with neurogenic bladder secondary to radiation therapy. Consult with Dr. Mar appreciated. Cutler catheter to be maintained. Continue Flomax 0.4 mg daily, Proscar 5 mg with supper.. 5. History of coronary artery disease. Continue aspirin 81 mg daily, Plavix 75 mg daily, atorvastatin, Lopressor, Imdur 30 mg daily. 6. Diabetes mellitus type 2 insulin requiring uncontrolled, hemoglobin A1c 7.6. Continue Levemir 50 units daily, NovoLog scale 7. Acute kidney injury, acute tubular necrosis secondary to hypotension hypoperfusion. Consult with Dr. Diaz appreciated. Avoid nephrotoxic agents, continue to monitor closely. 8. Non-gap metabolic acidosis. Bicarbonate drip transitioned to oral 650 mg twice daily. Consult with nephrology appreciated. 9. Lactic acidosis secondary to sepsis. 10. Hyperkalemia secondary to acute kidney injury, improved. 11. Chronic kidney disease stage IV. Consult with Dr. Diaz, 12. Chronic lower extremity neuropathy. Patient has been on gabapentin and will be tapered with decreased to 300 mg twice daily and start Lyrica 50 mg twice daily, fentanyl patch added. Continue Flexeril 10 mg at bedtime. 13. Parkinson's disease. Continue Sinemet one 3 times daily. 14. History of kidney stones, stable. Urinalysis shows no hematuria. 15. Chronic thrombocytopenia, stable. 16. DVT prophylaxis. Lovenox subcu. 17. GI prophylaxis. Protonix. 18. Hyperlipidemia on Lipitor 40 19. Hyperuricemia on allopurinol 100 mg daily 20. History of coronary artery disease. Continue aspirin 81 mg daily, Lipitor 40 mg daily, Plavix 75 mg daily, Imdur 30 mg daily, Lopressor 25 mg twice daily. 21. COVID-19 infection not present. Discharge plan: subacute rehab Impression and plan of care have been directed as dictated by the signing ph ysician. Missy Douglas nurse practitioner acting as scribe for signing physician.
--- NOTE | 2020-03-16 15:10 | PN ---
PROGRESS NOTE Patient is seen for followup for acute kidney injury. He is currently comfortable, awake. Denies any significant complaints. He is being considered for discharge to rehab. PHYSICAL EXAMINATION: On examination today, blood pressure was 125/74, heart rate 75 per minute, he is afebrile. Examination of the heart S1, S2. Examination of the lungs, bilateral breath sounds are heard. Abdomen is soft, nontender. Examination of the lower extremities shows no significant edema. REBAR FABRICATOR exam grossly intact. LABS: Show sodium 136, potassium 4.7, BUN 66, serum creatinine 2.6 mg/dL. ASSESSMENT: 1. Acute kidney injury ATN associated with sepsis, currently improved slightly. Creatinine staying 2.5-2.6 mg/dL. Previous creatinine was 2.2-2.3. 2. Urinary tract infection secondary to sepsis. Urine culture grew E coli. 3. Lactic acidosis. 4. Hypotension from sepsis, now improved. 5. 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 6. Metabolic acidosis now resolved, patient is off of sodium bicarb. 7. Volume overload, currently improved. PLAN: Decrease Lasix to 40 mg daily. Monitor volume status as outpatient. DC Stapleton catheter in rehab. MMODL / IJN: [id number] /
[2020-03-17] MEDS ORDERED: FUROSEMIDE 40 MG TAB PO SCH (09:00)
== END 2020-03-16 13:20 | DRG 871 ==
LOC: EC 01:27 → 5NMEDONC 03:25 → UNDOADMOB 03:25 → 5NMEDONC 03:25 → 2SICU 13:46 → 4SSUR 03-14 23:19
PROVIDERS: ADMIT Internal Medicine Geriatric Medicine; ATTEND Internal Medicine Geriatric Medicine
DX: A41.51 Sepsis due to Escherichia coli [E. coli] (principal); G93.41 Metabolic encephalopathy; I50.33 Acute on chronic diastolic (congestive) heart failure; N17.0 Acute kidney failure with tubular necrosis; R65.21 Severe sepsis with septic shock; E87.2 Acidosis; I13.0 Hypertensive heart and chronic kidney disease with heart failure and stage 1 through stage 4 chronic kidney disease, or unspecified chronic kidney disease; N13.8 Other obstructive and reflux uropathy; N18.4 Chronic kidney disease, stage 4 (severe); N30.00 Acute cystitis without hematuria; N31.2 Flaccid neuropathic bladder, not elsewhere classified; D69.59 Other secondary thrombocytopenia; E11.22 Type 2 diabetes mellitus with diabetic chronic kidney disease; E11.42 Type 2 diabetes mellitus with diabetic polyneuropathy; G20 Parkinson's disease; E78.5 Hyperlipidemia, unspecified; E86.0 Dehydration; E87.5 Hyperkalemia; I25.119 Atherosclerotic heart disease of native coronary artery with unspecified angina pectoris; Z79.4 Long term (current) use of insulin; Z20.828 Contact with and (suspected) exposure to other viral communicable diseases; K59.09 Other constipation; M19.90 Unspecified osteoarthritis, unspecified site; N40.1 Benign prostatic hyperplasia with lower urinary tract symptoms; G43.909 Migraine, unspecified, not intractable, without status migrainosus; M10.9 Gout, unspecified; Z79.02 Long term (current) use of antithrombotics/antiplatelets; Z79.82 Long term (current) use of aspirin; Z79.899 Other long term (current) drug therapy; Z86.14 Personal history of Methicillin resistant Staphylococcus aureus infection; Z87.440 Personal history of urinary (tract) infections; Z87.442 Personal history of urinary calculi; Z95.5 Presence of coronary angioplasty implant and graft; Z96.653 Presence of artificial knee joint, bilateral; Z90.49 Acquired absence of other specified parts of digestive tract; Z98.1 Arthrodesis status; Z85.820 Personal history of malignant melanoma of skin; Z98.42 Cataract extraction status, left eye; Z98.41 Cataract extraction status, right eye; Z88.1 Allergy status to other antibiotic agents; Z88.5 Allergy status to narcotic agent; Z88.8 Allergy status to other drugs, medicaments and biological substances; Z91.048 Other nonmedicinal substance allergy status; Z80.9 Family history of malignant neoplasm, unspecified; Z82.49 Family history of ischemic heart disease and other diseases of the circulatory system; Z82.5 Family history of asthma and other chronic lower respiratory diseases; Z83.3 Family history of diabetes mellitus
CPT/HCPCS: 36415; 71045; 71046; 74176; 76770; 80048; 80053; 81001; 82550; 83036; 83605; 83735; 83880; 84100; 84132; 84145; 84484; 85025; 85027; 85610; 85730; 87040; 87077; 87086; 87186; 93005; 94640; 96361; 96365; 99285

== ENCOUNTER → 2020-07-28 | Outpatient (CLI) | payer MEDICARE ==
--- NOTE | 2020-07-28 16:15 | XR ---
EXAMINATION TYPE: XR femur LT DATE OF EXAM: 07/28/2020 COMPARISON: None HISTORY: Pain in left femur TECHNIQUE: 2 view left femur FINDINGS: Femoral head articulates with the acetabulum. No acute fractures are evident. There is a le ft knee prosthesis present. IMPRESSION: 1. No acute osseous abnormality left femur
== END | disposition home or self-care (01) ==
LOC: RADXRMAIN 10:37
PROVIDERS: ATTEND Internal Medicine Geriatric Medicine
DX: M79.605 Pain in left leg (principal)

== ENCOUNTER 2020-08-15 11:54 | Inpatient (IN) | payer OTHER, MEDICARE ==
--- NOTE | 2020-08-15 12:57 | ED ---
General Adult HPI - General Chief complaint: Recheck/Abnormal Lab/Rx Stated complaint: altered mental status, foot pain Time Seen by Provider: 08/15/20 12:30 Source: patient, family, RN notes reviewed, old records reviewed Mode of arrival: wheelchair Limitations: altered mental status, physical limitation - History of Present Illness Initial comments: this is a 85-year-old male with a history of multiple medical issues [facility] and found have elevated potassium levels decreased renal function also he was hypotensive upon arrival here and found have low thyroid test. He apparently was recently being treated for UTI was on Bactrim he is having some hallucinations. Also rubbery legs and arms. No focal deficits however. He also did have some shortness of breath that apparently did resolve taking nitroglycerin. Currently symptom-free nausea vomiting no chest pain no other modifying factors at this time was sent in here for further evaluation - Related Data Home Medications Medication Instructions Recorded Confirmed Cyclobenzaprine [Flexeril] 10 mg PO HS 06/02/16 03/12/20 allopurinoL [Zyloprim] 100 mg PO W/SUPPER 06/02/16 03/12/20 rOPINIRole HCL [Requip] 0.5 mg PO BID 06/02/16 03/12/20 Cetirizine HCl [Zyrtec] 10 mg PO DAILY 05/26/18 03/12/20 Finasteride [Proscar] 5 mg PO W/SUPPER 05/26/18 03/12/20 Metoprolol Tartrate [Lopressor] 25 mg PO BID 05/26/18 03/12/20 Tamsulosin HCl [Flomax] 0.4 mg PO DAILY 05/26/18 03/12/20 Aspirin 81 mg PO DAILY 07/18/19 03/12/20 Atorvastatin [Lipitor] 40 mg PO W/SUPPER 07/18/19 03/12/20 Carbidopa-Levodopa 25-100 mg 1 tab PO TID 07/18/19 03/12/20 [Sinemet 25-100 mg] Ergocalciferol [Vitamin D2 50,000 unit PO Q14D 07/18/19 03/12/20 (DRISDOL)] Insulin Glargine,Hum.rec.anlog 50 units SQ DAILY 07/18/19 03/12/20 [Charlotte Ledesma] calcitrioL [Rocaltrol] 0.25 mg PO OLSON 09/28/19 08/15/20 Levothyroxine Sodium [Synthroid] 50 mcg PO DAILY 08/15/20 08/15/20 Sulfamethox-Tmp 800-160Mg [Bactrim 1 tab PO Q12HR 08/15/20 08/15/20 DS 800-160 mg] Previous Rx's Medication Instructions Recorded Isosorbide Mononitrate ER [Imdur] 30 mg PO DAILY #30 tab.er.24h 06/04/18 Nitroglycerin Sl Tabs [Nitrostat] 0.4 mg SUBLINGUAL Q5M PRN #25 tab 06/04/18 polyethylene glycoL 3350 [Miralax] 17 gm PO DAILY #0 powd.pack 07/21/19 Acetaminophen Tab [Tylenol] 650 mg PO Q6HR PRN tab 03/15/20 Albuterol Inhaler [Ventolin Hfa 2 puff INHALATION Q4HR PRN puff 03/15/20 Inhaler] Clopidogrel [Plavix] 75 mg PO DAILY tab 03/15/20 Docusate [Colace] 100 mg PO BID cap 03/15/20 Furosemide [Lasix] 40 mg PO BID@0900,1600 tab 03/15/20 HYDROcodone/APAP 7.5-325MG [[place] 1 each PO Q6HR PRN #12 tab 03/15/20 7.5-325] INSULIN ASPART (NovoLOG) [NovoLOG 0 unit SQ ACHS vial 03/15/20 (formulary)] Pregabalin [Lyrica] 50 mg PO BID #6 cap 03/15/20 Sodium Bicarbonate Tab 650 mg PO BID tab 03/15/20 fentaNYL 25MCG/HR PATCH [Duragesic 1 patch TRANSDERM Q72H #1 patch 03/15/20 25MCG/HR] Cephalexin [Keflex] 500 mg PO Q6HR 10 Days #40 cap 07/07/20 Allergies Allergy/AdvReac Type Severity Reaction Status Date / Time baclofen AdvReac Severe Nausea & Verified 08/15/20 14:24 Vomiting hydromorphone HCl AdvReac Nausea & Verified 08/15/20 14:24 [From Dilaudid] Vomiting morphine AdvReac Hallucinati Verified 08/15/20 14:24 ons vancomycin AdvReac Chills, Verified 08/15/20 14:24 Sweating, Did not feel well Review of Systems ROS Statement: Those systems with pertinent positive or pertinent negative responses have been documented in the HPI. ROS Other: All systems not noted in ROS Statement are negative. Past Medical History Past Medical History: Coronary Artery Disease (CAD), Cancer, Chest Pain / Angina, Diabetes Mellitus, Hyperlipidemia, Hypertension, Osteoarthritis (OA), Prostate Disorder, Renal Disease Additional Past Medical History / Comment(s): parkinson's, hx gout, hx basal cell carcinoma on head, melanoma lt shoulder, hx kidney stones, currently 2 bladder stones, hx migraines, constipation, History of Any Multi-Drug Resistant Organisms: None Reported, MRSA Date of last positivie culture/infection: 2004 MDRO Source:: rt shoulder Past Surgical History: Back Surgery, Cholecystectomy, Ear Surgery, Heart Catheterization, Heart Catheterization With Stent, Joint Replacement, Orthopedic Surgery, Tonsillectomy Additional Past Surgical History / Comment(s): cody knee replacement, cody. carpal tunnel release, cody shoulder rotator cuff repair, back surgery x5, (laminectomy, laminectomy with fusion, laminectomy and partial removal of fusion x2) lumbar fusionL4,L5, lt ear surgery x3 with replacement malleus/incus/stapes, revision of tympanoplasty, wide excision melanoma left shoulder, I&D rt thumb, lith otripsy,cystoscopy with kidney stone retrieved, cody cataracts, face and left ear multiple lesion removal, oral surgery, one cardiac stent, cody knee arthroscopy, debridement of rt shoulder x 2 with partial closure of rt shoulder, Past Anesthesia/Blood Transfusion Reactions: Family History of Problems w/ Anesthesia Additional Past Anesthesia/Blood Transfusion Reaction / Comment(s): hx vertigo, brother had issues-not sure what it was Date of Last Stent Placement:: 06/2018 Past Psychological History: No Psychological Hx Reported Smoking Status: Never smoker Past Alcohol Use History: None Reported Past Drug Use History: None Reported - Past Family History Mother Family Medical History: Cancer Father Family Medical History: Coronary Artery Disease (CAD), Hypertension Brother(s) Family Medical History: Cancer Sister(s) Family Medical History: Cancer, COPD, Diabetes Mellitus, Hypertension General Exam - General Exam Comments Initial Comments: this is a well-developed well-nourished awake alert oriented 3 male he is hard of hearing but does use hearing aids. Limitations: altered mental status, physical limitation General appearance: alert, in no apparent distress Head exam: Present: atraumatic, normocephalic, normal inspection Eye exam: Present: normal appearance, PERRL, EOMI. Absent: scleral icterus, conjunctival injection, periorbital swelling ENT exam: Present: normal exam, mucous membranes moist Neck exam: Present: normal inspection, full ROM, other (no stridor JVD or bruits). Absent: tenderness, meningismus, lymphadenopathy Respiratory exam: Present: decreased breath sounds. Absent: respiratory distress, wheezes, rales, rhonchi, stridor Cardiovascular Exam: Present: regular rate, normal rhythm, normal heart sounds. Absent: systolic murmur, diastolic murmur, rubs, gallop, clicks GI/Abdominal exam: Present: soft, normal bowel sounds. Absent: distended, tenderness, guarding, rebound, rigid Extremities exam: Present: normal inspection, full ROM, normal capillary refill, pedal edema (trace pedal edema). Absent: tenderness, joint swelling, calf tenderness Back exam: Present: normal inspection Neurological exam: Present: alert, oriented X3, CN II-XII intact Psychiatric exam: Present: normal affect, normal mood Skin exam: Present: warm, dry, intact, normal color. Absent: rash Course Vital Signs 08/15/20 08/15/20 12:07 15:12 Temperature 97.3 F L Pulse Rate 65 60 Respiratory 18 Rate Blood Pressure 94/59 O2 Sat by Pulse 95 Oximetry - Reevaluation(s) Reevaluation #1: 08/15/20 15:28 Reevaluation patient revealed no change in his status. Medical Decision Making - Medical Decision Making I did discuss findings with patient family as well as with Dr. Adkins and Dr. Gonzales. Patient be admitted for treatment of acute renal failure hyperkalemia. - Lab Data Result diagrams: 08/15/20 13:52 08/15/20 13:52 Lab Results 08/15/20 08/15/20 Range/Units 13:52 13:52 WBC 6.6 (3.8-10.6) k/uL RBC 3.68 L (4.30-5.90) m/uL Hgb 10.9 L (13.0-17.5) gm/dL Hct 34.4 L (39.0-53.0) % MCV 93.5 (80.0-100.0) fL MCH 29.7 (25.0-35.0) pg MCHC 31.8 (31.0-37.0) g/dL RDW 14.7 (11.5-15.5) % Plt Count 116 L (150-450) k/uL Neutrophils % 60 % Lymphocytes % 25 % Monocytes % 5 % Eosinophils % 7 % Basophils % 1 % Neutrophils # 4.0 (1.3-7.7) k/uL Lymphocytes # 1.6 (1.0-4.8) k/uL Monocytes # 0.3 (0-1.0) k/uL Eosinophils # 0.4 (0-0.7) k/uL Basophils # 0.1 (0-0.2) k/uL Sodium 133 L (137-145) mmol/L Potassium 7.5 H* (3.5-5.1) mmol/L Chloride 109 H (98-107) mmol/L Carbon Dioxide 14 L (22-30) mmol/L Anion Gap 10 mmol/L BUN 134 H* (9-20) mg/dL Creatinine 5.78 H (0.66-1.25) mg/dL Est GFR (CKD-EPI)AfAm 9 (>60 ml/min/1.73 sqM) Est GFR (CKD-EPI)NonAf 8 (>60 ml/min/1.73 sqM) Glucose 57 L (74-99) mg/dL Calcium 9.0 (8.4-10.2) mg/dL Magnesium 2.7 H (1.6-2.3) mg/dL Total Bilirubin 0.5 (0.2-1.3) mg/dL AST 21 (17-59) U/L ALT 6 (4-49) U/L Alkaline Phosphatase 94 (38-126) U/L Creatine Kinase 93 (55-170) U/L Total Protein 6.7 (6.3-8.2) g/dL Albumin 3.8 (3.5-5.0) g/dL TSH 4.590 (0.465-4.680) mIU/L - Radiology Data Radiology results: report reviewed (imaging reviewed no acute findings.), image reviewed Critical Care Time Critical Care Time: Yes Total Critical Care Time: 39 Critical Care Time: 39 minutes of critical care time which includes initial presentation with history physical labs x-rays several reevaluation the patient discussed with patient's family as well as with the admitting physician and consult.review of old charting available review the materials from the [facility]. Admission orders and documentation of the above Disposition Clinical Impression: Acute renal failure, Hyperkalemia, Dyspnea, Acidosis, metabolic Disposition: ADMITTED IP TO THIS [facility] Condition: Serious Referrals: Dejan Adkins MD [Primary Care Provider] - 1-2 days
[2020-08-15 14:13] LABS: Basophils # (A) 0.1 k/uL (0-0.2); Basophils % (A) 1 %; Eosinophils # (A) 0.4 k/uL (0-0.7); Eosinophils % (A) 7 %; HCT 34.4 % (39.0-53.0); HGB 10.9 gm/dL (13.0-17.5); Lymphocytes # (A) 1.6 k/uL (1.0-4.8); Lymphocytes % (A) 25 %; MCH 29.7 pg (25.0-35.0); MCHC 31.8 g/dL (31.0-37.0); MCV 93.5 fL (80.0-100.0); Mean Platelet Volume 9.3; Monocytes # (A) 0.3 k/uL (0-1.0); Monocytes % (A) 5 %; Neutrophils % (A) 60 %; Platelet Count 116 k/uL (150-450); RBC 3.68 m/uL (4.30-5.90); RDW 14.7 % (11.5-15.5); WBC 6.6 k/uL (3.8-10.6)
[2020-08-15 14:22] LABS: Albumin 3.8 g/dL (3.5-5.0); Magnesium 2.7 mg/dL (1.6-2.3); Total Bilirubin 0.5 mg/dL (0.2-1.3); Total Protein 6.7 g/dL (6.3-8.2)
[2020-08-15 14:34] LABS: Potassium 7.5 mmol/L (3.5-5.1)
[2020-08-15] MEDS ORDERED: ALBUTEROL NEBULIZED (CONC) 20 MG, SODIUM CHLORIDE 0.9% NEBULIZ 3 ML INHALATION ONE ×2 (14:38)
[2020-08-15] MEDS ORDERED: SODIUM POLYSTYRENE SULFONATE 15 GM/60 ML BOTTLE PO STA (14:39)
[2020-08-15] MEDS ORDERED: FUROSEMIDE 10 MG/ML 4 ML VIAL IV STA (14:39)
[2020-08-15] MEDS ORDERED: INSULIN REGULAR 100 UNIT/ML VIAL IV ONE ×3 (14:39→22:29)
[2020-08-15] MEDS ORDERED: SODIUM CHLORIDE 0.9% 1,000 ML IV STA (14:39)
[2020-08-15] MEDS ORDERED: DEXTROSE 50% SYRINGE 50 ML IVP STA ×2 (14:40→18:17)
[2020-08-15] MEDS ORDERED: CALCIUM GLUCONATE 1 GM in SODIUM CHLORIDE 0.9% 100 ML IVPB ONE (15:00)
[2020-08-15] MEDS ORDERED: ALBUTEROL NEB (CONC) 2.5 MG/0.5 ML INHALATION ONE (15:04)
[2020-08-15] MEDS ORDERED: SODIUM BICARB 8.4% 50 ML SYR (1 MEQ/ML) IV STA ×2 (15:31→18:19)
[2020-08-15] MEDS ORDERED: NALOXONE 0.4 MG/ML 1 ML VIAL IV PRN (15:36)
[2020-08-15] MEDS ORDERED: ACETAMINOPHEN TAB 325 MG TAB PO PRN ×2 (15:36→15:38)
[2020-08-15] MEDS ORDERED: ALBUTEROL NEBULIZED 2.5 MG/3 ML INHALATION PRN ×2 (15:38→17:56)
[2020-08-15] MEDS ORDERED: NITROGLYCERIN SL TABS 0.4 MG TAB SUBLINGUAL PRN (15:38)
[2020-08-15] MEDS ORDERED: HYDROcodone/APAP 7.5-325MG 1 EACH TAB PO PRN (15:38)
[2020-08-15] MEDS ORDERED: SODIUM CHLORIDE 0.9% 1,000 ML IV SCH (15:45)
[2020-08-15] MEDS: DEXTROSE 5% IN WATER 1,000 ML with SODIUM BICARB (1 MEQ/ML) 150 ML IV SCH (16:31)
[2020-08-15 16:52] LABS: D-Dimer 1.52 mg/L FEU (<0.60); INR 1.1 (<1.2); Partial Thromboplastin Time 24.6 sec (22.0-30.0); Prothrombin Time 10.9 sec (9.0-12.0)
[2020-08-15] MEDS: CARBIDOPA-LEVODOPA 25-100 MG 1 EACH TAB PO SCH ×2 (17:53→21:27)
[2020-08-15] MEDS ORDERED: HYDROcodone/APAP 10-325MG 1 EACH TAB PO PRN (17:56)
[2020-08-15 17:57] LABS: Appearance,Urine Clear (Clear); Bilirubin,Urine Negative (Negative); Blood,Urine Small (Negative); Color,Urine Yellow; Glucose,Urine (UA) Negative (Negative); Hyaline Casts,Urine 7 /lpf (0-2); Ketones,Urine Negative (Negative); Leukocyte Esterase,Urine Moderate (Negative); Mucus,Urine Rare /hpf; Nitrite,Urine Negative (Negative); Protein,Urine Negative (Negative); RBC,Urine 2 /hpf (0-5); Specific Gravity,Urine 1.011 (1.001-1.035); Urobilinogen,Urine <2.0 mg/dL (<2.0); WBC,Urine 15 /hpf (0-5)
[2020-08-15] MEDS ORDERED: CEPHALEXIN 500 MG CAP PO SCH (18:00)
[2020-08-15] MEDS: FINASTERIDE 5 MG TAB PO SCH (19:03)
[2020-08-15] MEDS: ATORVASTATIN 40 MG TAB PO SCH (19:03)
[2020-08-15] MEDS: allopurinoL 100 MG TAB PO SCH (19:03)
[2020-08-15] MEDS ORDERED: DOCUSATE 100 MG CAP PO SCH (21:00)
[2020-08-15] MEDS ORDERED: PREGABALIN 50 MG CAP PO SCH (21:00)
[2020-08-15] MEDS ORDERED: SULFAMETHOX-TMP 800-160MG 1 EACH TAB PO SCH (21:00)
[2020-08-15 21:16] LABS: Glucose,Whole Blood 235 mg/dL (75-99)
[2020-08-15] MEDS: PREGABALIN 100 MG CAP PO SCH (21:26)
[2020-08-15] MEDS: CYCLOBENZAPRINE 10 MG TAB PO SCH (21:26)
[2020-08-15] MEDS: METOPROLOL TARTRATE 25 MG TAB PO SCH (21:26)
[2020-08-15 21:27] LABS: C Reactive Protein 6.6 mg/L (<10.0)
[2020-08-15] MEDS: SODIUM BICARBONATE TAB 650 MG TAB PO SCH (21:27)
[2020-08-15] MEDS ORDERED: DEXTROSE 50% SYRINGE 50 ML IVP ONE (22:29)
--- NOTE | 2020-08-15 23:10 | P.HPIM ---
History of Present Illness H&P Date: 08/15/20 Chief Complaint: Acute kidney injury with acute kidney failure, severe hyper kalemia, metabol 85-year-old male one of my office patient with multiple medical problem was known to have history of chronic kidney disease, type 2 diabetes with multiple complication, severe lower back pain post surgery, history of gout atherosclerotic heart disease and severe BPH was known to have history of chronic pain syndrome who was in the hospital last time and [place] in 03/12/2024 sepsis with right lower quadrant pain along with pyelonephritis with acute kidney failure feel to outpatient treatment management post IV antibiotics for. 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 Patient also known to have a chronic history of atherosclerotic heart disease with diastolic congestive heart failure has been on medication with good respond the management so far. Patient has been watch for outpatient management was started for UTI on Bactrim DS had a blood work done recently showed severe hyperkalemia with acute kidney injury with BUN of 134 creatinine 5.78 with potassium of 7.5 with peak T waves on EKG test. [facility] was started on sodium bicarbonate, D50 with insulin along with axillary to bring his potassium down repeat potassium level second time down to 6.0 blood sugar was mildly elevated patient still tested positive UA for infection patient will be hospitalized started on IV antibiotic continue hydration and consult nephrology while were holding diuretics and all nephrotoxic agent to improve the kidney function also renal ultrasound will be ordered for tomorrow morning. Review of Systems CONSTITUTIONAL: Well-developed no acute respiratory distress. EYES: No icterus sclerae, no conjunctivitis. EARS, NOSE, MOUTH, THROAT, and FACE: No sore throat, lymphadenopathy, carotid bruits or deformity. RESPIRATORY: Positive shortness of breath without cough positive mild wheezes CARDIOVASCULAR: Positive PND orthopnea palpitation GASTROINTESTINAL: Positive mild abdominal discomfort with nausea no vomiting positive mild change in bowel habit with more constipation GENITOURINARY: Positive UTI with her current infection not well-managed medication, still have decrease urine output with mild changing color urine mild burning discomfort and incontinence INTEGUMENT/BREAST: Negative for any muscular injury with mild osteoarthritis.. HEMATOLOGIC/LYMPHATIC: Negative for bleed or purpura. MUSCULOSKELTAL: Negative for Myalgia or arthralgia. Positive nonhealing ulcerated infection and the right heel area NEURLOGICAL: Severe neuropathy of the lower extremity. BEHAVIORAL/PSYCH: Negative. ENDOCRINE: Negative. Past Medical History Past Medical History: Coronary Artery Disease (CAD), Cancer, Chest Pain / Angina, Diabetes Mellitus, Hyperlipidemia, Hypertension, Osteoarthritis (OA), Prostate Disorder, Renal Disease Additional Past Medical History / Comment(s): parkinson's, hx gout, hx basal cell carcinoma on head, melanoma lt shoulder, hx kidney stones, currently 2 bladder stones, hx migraines, constipation, History of Any Multi-Drug Resistant Organisms: None Reported, MRSA Date of last positivie culture/infection: 2004 MDRO Source:: rt shoulder Past Surgical History: Back Surgery, Cholecystectomy, Ear Surgery, Heart Catheterization, Heart Catheterization With Stent, Joint Replacement, Orthopedic Surgery, Tonsillectomy Additional Past Surgical History / Comment(s): cody knee replacement, cody. carpal tunnel release, cody shoulder rotator cuff repair, back surgery x5, (laminectomy, laminectomy with fusion, laminectomy and partial removal of fusion x2) lumbar fusionL4,L5, lt ear surgery x3 with replacement malleus/incus/stapes, revision of tympanoplasty, wide excision melanoma left shoulder, I&D rt thumb, lithotripsy,cystoscopy with kidney stone retrieved, cody cataracts, face and left ear multiple lesion removal, oral surgery, one cardiac stent, cody knee arthroscopy, debridement of rt shoulder x 2 with partial closure of rt shoulder, Past Anesthesia/Blood Transfusion Reactions: Family History of Problems w/ Anesthesia Additional Past Anesthesia/Blood Transfusion Reaction / Comment(s): hx vertigo, brother had issues-not sure what it was Date of Last Stent Placement:: 06/2018 Past Psychological History: No Psychological Hx Reported Smoking Status: Never smoker Past Alcohol Use History: None Reported Past Drug Use History: None Reported - Past Family History Mother Family Medical History: Cancer Father Family Medical History: Coronary Artery Disease (CAD), Hypertension Brother(s) Family Medical History: Cancer Sister(s) Family Medical History: Cancer, COPD, Diabetes Mellitus, Hypertension Medications and Allergies Home Medications Medication Instructions Recorded Confirmed Type Cyclobenzaprine [Flexeril] 10 mg PO HS 06/02/16 08/15/20 History allopurinoL [Zyloprim] 100 mg PO W/SUPPER 06/02/16 08/15/20 History Cetirizine HCl [Zyrtec] 10 mg PO DAILY 05/26/18 08/15/20 History Finasteride [Proscar] 5 mg PO W/SUPPER 05/26/18 08/15/20 History Metoprolol Tartrate [Lopressor] 25 mg PO BID-W/MEALS 05/26/18 08/15/20 History Tamsulosin HCl [Flomax] 0.4 mg PO PC-BRKFST 05/26/18 08/15/20 History Isosorbide Mononitrate ER [Imdur] 30 mg PO DAILY #30 tab.er.24h 06/04/18 08/15/20 Rx Nitroglycerin Sl Tabs [Nitrostat] 0.4 mg SUBLINGUAL Q5M PRN #25 tab 06/04/18 08/15/20 Rx Aspirin 81 mg PO DAILY 07/18/19 08/15/20 History Atorvastatin [Lipitor] 40 mg PO W/SUPPER 07/18/19 08/15/20 History Carbidopa-Levodopa 25-100 mg 1 tab PO TID 07/18/19 08/15/20 History [Sinemet 25-100 mg] Ergocalciferol [Vitamin D2 50,000 unit PO Q14D 07/18/19 08/15/20 History (DRISDOL)] Insulin Glargine,Hum.rec.anlog 40 units SQ DAILY 07/18/19 08/15/20 History [Toumaro Solostar] polyethylene glycoL 3350 [Miralax] 17 gm PO DAILY #0 powd.pack 07/21/19 08/15/20 Rx calcitrioL [Rocaltrol] 0.25 mg PO OLSON 09/28/19 08/15/20 History Furosemide [Lasix] 40 mg PO BID@0900,1600 tab 03/15/20 08/15/20 Rx Albuterol Sulfate [Proair Hfa] 2 puff INHALATION Q4H PRN 08/15/20 08/15/20 History Docusate [Colace] 100 mg PO DAILY 08/15/20 08/15/20 History Hydrocodone/Acetaminophen [[place] 1 - 2 tab PO Q46H PRN 08/15/20 08/15/20 History 10-325] INSULIN ASPART (NovoLOG) [NovoLOG See Protocol SQ AC-TID 08/15/20 08/15/20 History (formulary)] Levothyroxine Sodium [Synthroid] 50 mcg PO DAILY 08/15/20 08/15/20 History Pregabalin [Lyrica] 100 mg PO BID 08/15/20 08/15/20 History SILVER sulfADIAZINE CREAM 1 applic TOPICAL DAILY 08/15/20 08/15/20 History [Silvadene Cream] Sulfamethox-Tmp 800-160Mg [Bactrim 1 tab PO Q12HR 08/15/20 08/15/20 History DS 800-160 mg] lisinopriL [Zestril] 2.5 mg PO W/SUPPER 08/15/20 08/15/20 History rOPINIRole HCL [Requip] 1 mg PO BID 08/15/20 08/15/20 History Allergies Allergy/AdvReac Type Severity Reaction Status Date / Time baclofen AdvReac Severe Nausea & Verified 08/15/20 14:24 Vomiting hydromorphone HCl AdvReac Nausea & Verified 08/15/20 14:24 [From Dilaudid] Vomiting morphine AdvReac Hallucinati Verified 08/15/20 14:24 ons vancomycin AdvReac Chills, Verified 08/15/20 14:24 Sweating, Did not feel well Physical Exam Vitals: Vital Signs Temp Pulse Resp BP Pulse Ox 08/15/20 17:56 76 18 94 L 08/15/20 15:40 80 08/15/20 15:30 71 08/15/20 15:12 60 08/15/20 12:07 97.3 F L 65 18 94/59 95 Intake and Output 08/15/20 08/15/20 08/15/20 06:59 14:59 22:59 Other: Weight 102.058 kg General Appearance: Alert, cooperative, no distress, appears stated age. Neck HEENT: Supple, no lymphadenopathy, no thyroid enlargement, no carotid bruits. Lungs: Decreased breath sound bilaterally with fine rhonchi mild crackles in the bases with mild wheezes. Chest Wall: Decreased expansion with deep inspiration no tenderness and no deformity was found on exam, no costochondral pain or discomfort. Heart: Regular rate and rhythm, S1, S2 positive S3 positive systolic murmur. Back: Symmetric, no curvature, ROM normal, no CVA tenderness. Abdomen: Soft positive bowel sounds slight discomfort and lower abdominal region area in the flank area mostly in the left side. Extremities: Decreased breath some bilaterally specially the right side positive small area of ulcerated with infected side around the lateral side of the ankle area on the right compared to the left, slight decreased sensation with significant neuropathy bilaterally. Pulses: 2+ and symmetric. Skin: Skin color, texture, tugor normal, no rashes or lesions. Neurologic: Alert oriented x3 cranial nerves II through XII intact, no motor deficit, positive normal balance and gait. Results CBC & Chem 7: 08/15/20 13:52 08/15/20 21:24 Labs: Abnormal Lab Results - Last 24 Hours (Table) 08/15/20 08/15/20 08/15/20 Range/Units 13:52 13:52 15:22 RBC 3.68 L (4.30-5.90) m/uL Hgb 10.9 L (13.0-17.5) gm/dL Hct 34.4 L (39.0-53.0) % Plt Count 116 L (150-450) k/uL D-Dimer 1.52 H (<0.60) mg/L FEU Sodium 133 L (137-145) mmol/L Potassium 7.5 H* (3.5-5.1) mmol/L Chloride 109 H (98-107) mmol/L Carbon Dioxide 14 L (22-30) mmol/L BUN 134 H* (9-20) mg/dL Creatinine 5.78 H (0.66-1.25) mg/dL Glucose 57 L (74-99) mg/dL Magnesium 2.7 H (1.6-2.3) mg/dL Urine Blood (Negative) Ur Leukocyte Esterase (Negative) Urine WBC (0-5) /hpf Urine WBC Clumps (None) /hpf Hyaline Casts (0-2) /lpf Urine Mucus (None) /hpf 08/15/20 08/15/20 Range/Units 15:22 17:46 RBC (4.30-5.90) m/uL Hgb (13.0-17.5) gm/dL Hct (39.0-53.0) % Plt Count (150-450) k/uL D-Dimer (<0.60) mg/L FEU Sodium (137-145) mmol/L Potassium 6.1 H* (3.5-5.1) mmol/L Chloride (98-107) mmol/L Carbon Dioxide (22-30) mmol/L BUN (9-20) mg/dL Creatinine (0.66-1.25) mg/dL Glucose (74-99) mg/dL Magnesium (1.6-2.3) mg/dL Urine Blood Small H (Negative) Ur Leukocyte Esterase Moderate H (Negative) Urine WBC 15 H (0-5) /hpf Urine WBC Clumps Few H (None) /hpf Hyaline Casts 7 H (0-2) /lpf Urine Mucus Rare H (None) /hpf Thrombosis Risk Factor Assmnt - DVT/VTE Prophylaxis DVT/VTE Prophylaxis: Pharmacologic Prophylaxis ordered, Mechanical Prophylaxis ordered Assessment and Plan Assessment: 1 acute kidney injury most likely ATN and possibly secondary to medications specially Bactrim, we'll start medication continue hydration take away any nephrotoxic agent for now. Consult nephrology renal ultrasound be done as well. 2 severe hyperkalemia: Continue acute potassium management with sodium bicarbonate, D50 with insulin along with Paxil 8, continue hydration and fluid resuscitation repeat potassium every 6 hours until tomorrow morning. 3 reaction to medication most likely Bactrim DS take away the medication at this point continue hydration no need for any steroid use at this point. 4 diastolic congestive heart failure: Patient has been on medical management with furosemide 40 mg twice a day, nitro, lisinopril and metoprolol. Patient Lasix will be held for now also hold his lisinopril. Take away. 5 nonhealing ulcer with severe cellulitis of the lower extremity specially the right leg Unasyn will be use daily kidney function improved for now. 6 urine tract infection with sepsis: Continue IV antibiotics until again the urine culture is back. 7 severe neuropathy: Has been on Lyrica 100 mg twice a day. 8 atherosclerotic heart disease: Continue medical management no invasive procedure patient seen cardiology regularly. 9 Parkinson disease and tremor: Continue patient on Sinemet 3 times a day along with repeat a pro-. 10 gout: Patient remain on allopurinol 100 mg a day. 11 BPH: Continue to watch for any urinary retention patient remain on Low-Dose and Add Finasteride Has Been Seen Urology Regularly. 12 Arrhythmia with Mild Tachycardia None A. fib Base: Patient Remain on Metoprolol 25 Mg Twice a Day. 13 Hypothyroidism: Continue Levothyroxine at 50 g Daily. 14 Type 2 Diabetes on Insulin: Continue Patient on Long Acting Insulin with Please Review 14 a Daily along with NovoLog per Sliding Scales Coverage. 15 GI Prophylaxis: Patient Will Be on Pepcid 20 Mg Daily. 16 DVT Prophylaxis: Patient Will Be on Heparin Subcutaneous. CODE STATUS: Full Code. Admit Patient to the Inpatient Service for More Than 2 Night Stay.
[2020-08-15 23:43] LABS: Glucose,Whole Blood 120 mg/dL (75-99)
[2020-08-16] MEDS: AMPICILLIN-SULBACTAM 1.5 GM in SODIUM CHLORIDE 0.9% 50 ML IVPB SCH ×2 (00:01→23:34)
[2020-08-16 01:56] LABS: Glucose,Whole Blood 38 mg/dL (75-99)
[2020-08-16] MEDS ORDERED: DEXTROSE 50% SYRINGE 50 ML IVP ONE ×2 (01:56→04:12)
[2020-08-16 02:11] LABS: Glucose,Whole Blood 176 mg/dL (75-99)
[2020-08-16 02:11] LABS: ABG Base Excess -7.3 mmol/L; ABG HCO3 18 mmol/L (21-25); ABG Oxygen Saturation 95.8 % (94-97); ABG PCO2 32 mmHg (35-45); ABG PH 7.36 (7.35-7.45); ABG PO2 73 mmHg (83-108); ABG TCO2 19 mmol/L (19-24); Allen Test Performed? Yes
[2020-08-16 02:56] LABS: Potassium 5.7 mmol/L (3.5-5.1)
[2020-08-16 03:03] LABS: Glucose,Whole Blood 111 mg/dL (75-99)
[2020-08-16 04:11] LABS: Glucose,Whole Blood 78 mg/dL (75-99)
[2020-08-16] MEDS: DEXTROSE 5% IN WATER 1,000 ML with SODIUM BICARB (1 MEQ/ML) 150 ML IV SCH ×2 (04:31→15:56)
[2020-08-16] MEDS: INSULIN DETEMIR (LEVEMIR) 100 UNIT/ML SYR SQ SCH (06:01)
[2020-08-16 06:02] LABS: Glucose,Whole Blood 236 mg/dL (75-99)
[2020-08-16] MEDS: LEVOTHYROXINE 50 MCG TAB PO SCH (06:03)
[2020-08-16 08:14] LABS: Albumin 3.6 g/dL (3.5-5.0); Calcium 8.1 mg/dL (8.4-10.2); Total Bilirubin 0.6 mg/dL (0.2-1.3); Total Protein 6.2 g/dL (6.3-8.2)
[2020-08-16 08:34] LABS: Basophils % (A) 0 %; Eosinophils # (A) 0.1 k/uL (0-0.7); Eosinophils % (A) 1 %; HCT 32.8 % (39.0-53.0); HGB 10.4 gm/dL (13.0-17.5); Lymphocytes # (A) 0.6 k/uL (1.0-4.8); Lymphocytes % (A) 8 %; MCH 29.9 pg (25.0-35.0); MCHC 31.8 g/dL (31.0-37.0); MCV 94.2 fL (80.0-100.0); Monocytes # (A) 0.2 k/uL (0-1.0); Monocytes % (A) 2 %; Neutrophils # (A) 6.5 k/uL (1.3-7.7); Neutrophils % (A) 88 %; Platelet Count 106 k/uL (150-450); RBC 3.49 m/uL (4.30-5.90); RDW 14.8 % (11.5-15.5); WBC 7.4 k/uL (3.8-10.6)
[2020-08-16] MEDS: CARBIDOPA-LEVODOPA 25-100 MG 1 EACH TAB PO SCH ×3 (08:38→20:32)
[2020-08-16] MEDS: CLOPIDOGREL 75 MG TAB PO SCH (08:38)
[2020-08-16] MEDS: LORATADINE 10 MG TAB PO SCH (08:38)
[2020-08-16] MEDS: ISOSORBIDE MONONITRATE ER 30 MG TAB.ER.24H PO SCH (08:38)
[2020-08-16] MEDS: FAMOTIDINE 20 MG TAB PO SCH (08:38)
[2020-08-16] MEDS: SODIUM BICARBONATE TAB 650 MG TAB PO SCH ×2 (08:38→20:32)
[2020-08-16] MEDS: TAMSULOSIN 0.4 MG CAP.ER.24H PO SCH (08:38)
[2020-08-16] MEDS: METOPROLOL TARTRATE 25 MG TAB PO SCH ×2 (08:38→20:32)
[2020-08-16] MEDS: polyethylene glycoL 3350 17 GM POWD.PACK PO SCH (08:38)
[2020-08-16] MEDS: HEPARIN SODIUM,PORCINE 5,000 UNIT/ML 1 ML VIAL SQ SCH ×2 (08:39→20:32)
[2020-08-16] MEDS: ASPIRIN 81 MG PO SCH (08:39)
[2020-08-16] MEDS: PREGABALIN 100 MG CAP PO SCH ×2 (08:39→20:32)
--- NOTE | 2020-08-16 08:39 | P.GSCN ---
History of Present Illness Consult date: 08/16/20 History of present illness: 85 yo male with a known history of recurrent utis, neurogenic bladder due to back problems with incomplete emptying. He has had a turp in the past. He came in with hallucinations and arf on crf. He was found to have a creatinine of 5.8 His urine may have been infected. He was admitted for treatment of both issues. He has a catheter in place and is oriented this am. Review of Systems - Constitutional Reports anorexia, Reports weakness - Genitourinary Reports as per HPI Past Medical History Past Medical History: Coronary Artery Disease (CAD), Cancer, Chest Pain / Angina, Diabetes Mellitus, Hyperlipidemia, Hypertension, Osteoarthritis (OA), Prostate Disorder, Renal Disease Additional Past Medical History / Comment(s): parkinson's, hx gout, hx basal cell carcinoma on head, melanoma lt shoulder, hx kidney stones, currently 2 bladder stones, hx migraines, constipation, History of Any Multi-Drug Resistant Organisms: None Reported, MRSA Year Discovered:: 2004 MDRO Source:: rt shoulder Past Surgical History: Back Surgery, Cholecystectomy, Ear Surgery, Heart Catheterization, Heart Catheterization With Stent, Joint Replacement, Orthopedic Surgery, Tonsillectomy Additional Past Surgical History / Comment(s): cody knee replacement, cody. carpal tunnel release, cody shoulder rotator cuff repair, back surgery x5, (laminectomy, laminectomy with fusion, laminectomy and partial removal of fusion x2) lumbar fusionL4,L5, lt ear surgery x3 with replacement malleus/incus/stapes, revision of tympanoplasty, wide excision melanoma left shoulder, I&D rt thumb, lithotrips y,cystoscopy with kidney stone retrieved, cody cataracts, face and left ear multiple lesion removal, oral surgery, one cardiac stent, cody knee arthroscopy, debridement of rt shoulder x 2 with partial closure of rt shoulder, Past Anesthesia/Blood Transfusion Reactions: Family History of Problems w/ Anesthesia Additional Past Anesthesia/Blood Transfusion Reaction / Comm: hx vertigo, brother had issues-not sure what it was Date of Last Stent Placement:: 06/2018 Past Psychological History: No Psychological Hx Reported Smoking Status: Never smoker Past Alcohol Use History: None Reported Past Drug Use History: None Reported - Past Family History Mother Family Medical History: Cancer Father Family Medical History: Coronary Artery Disease (CAD), Hypertension Brother(s) Family Medical History: Cancer Sister(s) Family Medical History: Cancer, COPD, Diabetes Mellitus, Hypertension Medications and Allergies Home Medications Medication Instructions Recorded Confirmed Type Cyclobenzaprine [Flexeril] 10 mg PO HS 06/02/16 08/15/20 History allopurinoL [Zyloprim] 100 mg PO W/SUPPER 06/02/16 08/15/20 History Cetirizine HCl [Zyrtec] 10 mg PO DAILY 05/26/18 08/15/20 History Finasteride [Proscar] 5 mg PO W/SUPPER 05/26/18 08/15/20 History Metoprolol Tartrate [Lopressor] 25 mg PO BID-W/MEALS 05/26/18 08/15/20 History Tamsulosin HCl [Flomax] 0.4 mg PO PC-BRKFST 05/26/18 08/15/20 History Isosorbide Mononitrate ER [Imdur] 30 mg PO DAILY #30 tab.er.24h 06/04/18 08/15/20 Rx Nitroglycerin Sl Tabs [Nitrostat] 0.4 mg SUBLINGUAL Q5M PRN #25 tab 06/04/18 08/15/20 Rx Aspirin 81 mg PO DAILY 07/18/19 08/15/20 History Atorvastatin [Lipitor] 40 mg PO W/SUPPER 07/18/19 08/15/20 History Carbidopa-Levodopa 25-100 mg 1 tab PO TID 07/18/19 08/15/20 History [Sinemet 25-100 mg] Ergocalciferol [Vitamin D2 50,000 unit PO Q14D 07/18/19 08/15/20 History (DRISDOL)] Insulin Glargine,Hum.rec.anlog 40 units SQ DAILY 07/18/19 08/15/20 History [Toujeo Solostar] polyethylene glycoL 3350 [Miralax] 17 gm PO DAILY #0 powd.pack 07/21/19 08/15/20 Rx calcitrioL [Rocaltrol] 0.25 mg PO OLSON 09/28/19 08/15/20 History Furosemide [Lasix] 40 mg PO BID@0900,1600 tab 03/15/20 08/15/20 Rx Albuterol Sulfate [Proair Hfa] 2 puff INHALATION Q4H PRN 08/15/20 08/15/20 History Docusate [Colace] 100 mg PO DAILY 08/15/20 08/15/20 History Hydrocodone/Acetaminophen [Cornelius 1 - 2 tab PO Q46H PRN 08/15/20 08/15/20 History 10-325] INSULIN ASPART (NovoLOG) [NovoLOG See Protocol SQ AC-TID 08/15/20 08/15/20 History (formulary)] Levothyroxine Sodium [Synthroid] 50 mcg PO DAILY 08/15/20 08/15/20 History Pregabalin [Lyrica] 100 mg PO BID 08/15/20 08/15/20 History SILVER sulfADIAZINE CREAM 1 applic TOPICAL DAILY 08/15/20 08/15/20 History [Silvadene Cream] Sulfamethox-Tmp 800-160Mg [Bactrim 1 tab PO Q12HR 08/15/20 08/15/20 History DS 800-160 mg] lisinopriL [Zestril] 2.5 mg PO W/SUPPER 08/15/20 08/15/20 History rOPINIRole HCL [Requip] 1 mg PO BID 08/15/20 08/15/20 History Allergies Allergy/AdvReac Type Severity Reaction Status Date / Time baclofen AdvReac Severe Nausea & Verified 08/15/20 14:24 Vomiting hydromorphone HCl AdvReac Nausea & Verified 08/15/20 14:24 [From Dilaudid] Vomiting morphine AdvReac Hallucinati Verified 08/15/20 14:24 ons vancomycin AdvReac Chills, Verified 08/15/20 14:24 Sweating, Did not feel well Surgical - Exam Vital Signs Temp Pulse Resp BP Pulse Ox 97.3 F L 65 18 94/59 95 08/15/20 12:07 08/15/20 12:07 08/15/20 12:07 08/15/20 12:07 08/15/20 12:07 - General well developed, well nourished, no distress - Eyes PERRL - Neck no masses - Respiratory normal expansion, normal respiratory effort - Cardiovascular Rhythm: regular - Abdomen Abdomen: soft, non tender - Genitourinary indwelling catheter normal penis with no external lesions, testicles present - Integumentary no rash, no growths - Musculoskeletal normal posture - Psychiatric oriented to time, oriented to person, oriented to place, speech is normal, memory intact Results - Labs 08/15/20 13:52 08/16/20 06:53 Abnormal Lab Results - Last 24 Hours (Table) 08/15/20 08/15/20 08/15/20 Range/Units 13:25 13:52 13:52 RBC 3.68 L (4.30-5.90) m/uL Hgb 10.9 L (13.0-17.5) gm/dL Hct 34.4 L (39.0-53.0) % Plt Count 116 L (150-450) k/uL D-Dimer (<0.60) mg/L FEU ABG pCO2 (35-45) mmHg ABG pO2 (83-108) mmHg ABG HCO3 (21-25) mmol/L Sodium 133 L (137-145) mmol/L Potassium 7.5 H* (3.5-5.1) mmol/L Chloride 109 H (98-107) mmol/L Carbon Dioxide 14 L (22-30) mmol/L BUN 134 H* (9-20) mg/dL Creatinine 5.78 H (0.66-1.25) mg/dL Glucose 57 L (74-99) mg/dL POC Glucose (mg/dL) (75-99) mg/dL Calcium (8.4-10.2) mg/dL Magnesium 2.7 H (1.6-2.3) mg/dL Lactate Dehydrogenase 636 H (313-618) U/L Total Protein (6.3-8.2) g/dL Procalcitonin (0.02-0.09) ng/mL Urine Blood (Negative) Ur Leukocyte Esterase (Negative) Urine WBC (0-5) /hpf Urine WBC Clumps (None) /hpf Hyaline Casts (0-2) /lpf Urine Mucus (None) /hpf 08/15/20 08/15/20 08/15/20 Range/Units 15:22 15:22 15:22 RBC (4.30-5.90) m/uL Hgb (13.0-17.5) gm/dL Hct (39.0-53.0) % Plt Count (150-450) k/uL D-Dimer 1.52 H (<0.60) mg/L FEU ABG pCO2 (35-45) mmHg ABG pO2 (83-108) mmHg ABG HCO3 (21-25) mmol/L Sodium (137-145) mmol/L Potassium (3.5-5.1) mmol/L Chloride (98-107) mmol/L Carbon Dioxide (22-30) mmol/L BUN (9-20) mg/dL Creatinine (0.66-1.25) mg/dL Glucose (74-99) mg/dL POC Glucose (mg/dL) (75-99) mg/dL Calcium (8.4-10.2) mg/dL Magnesium (1.6-2.3) mg/dL Lactate Dehydrogenase (313-618) U/L Total Protein (6.3-8.2) g/dL Procalcitonin 0.15 H (0.02-0.09) ng/mL Urine Blood Small H (Negative) Ur Leukocyte Esterase Moderate H (Negative) Urine WBC 15 H (0-5) /hpf Urine WBC Clumps Few H (None) /hpf Hyaline Casts 7 H (0-2) /lpf Urine Mucus Rare H (None) /hpf 08/15/20 08/15/20 08/15/20 Range/Units 17:46 21:14 21:24 RBC (4.30-5.90) m/uL Hgb (13.0-17.5) gm/dL Hct (39.0-53.0) % Plt Count (150-450) k/uL D-Dimer (<0.60) mg/L FEU ABG pCO2 (35-45) mmHg ABG pO2 (83-108) mmHg ABG HCO3 (21-25) mmol/L Sodium (137-145) mmol/L Potassium 6.1 H* 6.0 H (3.5-5.1) mmol/L Chloride (98-107) mmol/L Carbon Dioxide (22-30) mmol/L BUN (9-20) mg/dL Creatinine (0.66-1.25) mg/dL Glucose (74-99) mg/dL POC Glucose (mg/dL) 235 H (75-99) mg/dL Calcium (8.4-10.2) mg/dL Magnesium (1.6-2.3) mg/dL Lactate Dehydrogenase (313-618) U/L Total Protein (6.3-8.2) g/dL Procalcitonin (0.02-0.09) ng/mL Urine Blood (Negative) Ur Leukocyte Esterase (Negative) Urine WBC (0-5) /hpf Urine WBC Clumps (None) /hpf Hyaline Casts (0-2) /lpf Urine Mucus (None) /hpf 08/15/20 08/16/20 08/16/20 Range/Units 23:41 01:55 01:59 RBC (4.30-5.90) m/uL Hgb (13.0-17.5) gm/dL Hct (39.0-53.0) % Plt Count (150-450) k/uL D-Dimer (<0.60) mg/L FEU ABG pCO2 (35-45) mmHg ABG pO2 (83-108) mmHg ABG HCO3 (21-25) mmol/L Sodium (137-145) mmol/L Potassium 5.7 H (3.5-5.1) mmol/L Chloride (98-107) mmol/L Carbon Dioxide (22-30) mmol/L BUN (9-20) mg/dL Creatinine (0.66-1.25) mg/dL Glucose 155 H (74-99) mg/dL POC Glucose (mg/dL) 120 H 38 L (75-99) mg/dL Calcium (8.4-10.2) mg/dL Magnesium (1.6-2.3) mg/dL Lactate Dehydrogenase (313-618) U/L Total Protein (6.3-8.2) g/dL Procalcitonin (0.02-0.09) ng/mL Urine Blood (Negative) Ur Leukocyte Esterase (Negative) Urine WBC (0-5) /hpf Urine WBC Clumps (None) /hpf Hyaline Casts (0-2) /lpf Urine Mucus (None) /hpf 08/16/20 08/16/20 08/16/20 Range/Units 02:06 02:09 03:01 RBC (4.30-5.90) m/uL Hgb (13.0-17.5) gm/dL Hct (39.0-53.0) % Plt Count (150-450) k/uL D-Dimer (<0.60) mg/L FEU ABG pCO2 32 L (35-45) mmHg ABG pO2 73 L (83-108) mmHg ABG HCO3 18 L (21-25) mmol/L Sodium (137-145) mmol/L Potassium (3.5-5.1) mmol/L Chloride (98-107) mmol/L Carbon Dioxide (22-30) mmol/L BUN (9-20) mg/dL Creatinine (0.66-1.25) mg/dL Glucose (74-99) mg/dL POC Glucose (mg/dL) 176 H 111 H (75-99) mg/dL Calcium (8.4-10.2) mg/dL Magnesium (1.6-2.3) mg/dL Lactate Dehydrogenase (313-618) U/L Total Protein (6.3-8.2) g/dL Procalcitonin (0.02-0.09) ng/mL Urine Blood (Negative) Ur Leukocyte Esterase (Negative) Urine WBC (0-5) /hpf Urine WBC Clumps (None) /hpf Hyaline Casts (0-2) /lpf Urine Mucus (None) /hpf 08/16/20 08/16/20 Range/Units 06:01 06:53 RBC (4.30-5.90) m/uL Hgb (13.0-17.5) gm/dL Hct (39.0-53.0) % Plt Count (150-450) k/uL D-Dimer (<0.60) mg/L FEU ABG pCO2 (35-45) mmHg ABG pO2 (83-108) mmHg ABG HCO3 (21-25) mmol/L Sodium 132 L (137-145) mmol/L Potassium (3.5-5.1) mmol/L Chloride (98-107) mmol/L Carbon Dioxide 19 L (22-30) mmol/L BUN 126 H* (9-20) mg/dL Creatinine 5.34 H (0.66-1.25) mg/dL Glucose 192 H (74-99) mg/dL POC Glucose (mg/dL) 236 H (75-99) mg/dL Calcium 8.1 L (8.4-10.2) mg/dL Magnesium (1.6-2.3) mg/dL Lactate Dehydrogenase (313-618) U/L Total Protein 6.2 L (6.3-8.2) g/dL Procalcitonin (0.02-0.09) ng/mL Urine Blood (Negative) Ur Leukocyte Esterase (Negative) Urine WBC (0-5) /hpf Urine WBC Clumps (None) /hpf Hyaline Casts (0-2) /lpf Urine Mucus (None) /hpf Microbiology - Last 24 Hours (Table) 08/15/20 15:22 Urine Culture - Preliminary Urine,Voided Diabetes panel 08/15/20 08/15/20 08/15/20 Range/Units 13:52 17:46 21:24 Sodium 133 L (137-145) mmol/L Potassium 7.5 H* 6.1 H* 6.0 H (3.5-5.1) mmol/L Chloride 109 H (98-107) mmol/L Carbon Dioxide 14 L (22-30) mmol/L BUN 134 H* (9-20) mg/dL Creatinine 5.78 H (0.66-1.25) mg/dL Glucose 57 L (74-99) mg/dL Calcium 9.0 (8.4-10.2) mg/dL AST 21 (17-59) U/L ALT 6 (4-49) U/L Alkaline Phosphatase 94 (38-126) U/L Total Protein 6.7 (6.3-8.2) g/dL Albumin 3.8 (3.5-5.0) g/dL 08/16/20 08/16/20 Range/Units 01:59 06:53 Sodium 132 L (137-145) mmol/L Potassium 5.7 H (3.5-5.1) mmol/L Chloride 100 (98-107) mmol/L Carbon Dioxide 19 L (22-30) mmol/L BUN 126 H* (9-20) mg/dL Creatinine 5.34 H (0.66-1.25) mg/dL Glucose 155 H 192 H (74-99) mg/dL Calcium 8.1 L (8.4-10.2) mg/dL AST 21 (17-59) U/L ALT 9 (4-49) U/L Alkaline Phosphatase 89 (38-126) U/L Total Protein 6.2 L (6.3-8.2) g/dL Albumin 3.6 (3.5-5.0) g/dL Thyroid panel 08/15/20 Range/Units 13:52 TSH 4.590 (0.465-4.680) mIU/L Calcium panel 08/15/20 08/16/20 Range/Units 13:52 06:53 Calcium 9.0 8.1 L (8.4-10.2) mg/dL Albumin 3.8 3.6 (3.5-5.0) g/dL Pituitary panel 08/15/20 08/15/20 08/15/20 Range/Units 13:52 17:46 21:24 Sodium 133 L (137-145) mmol/L Potassium 7.5 H* 6.1 H* 6.0 H (3.5-5.1) mmol/L Chloride 109 H (98-107) mmol/L Carbon Dioxide 14 L (22-30) mmol/L BUN 134 H* (9-20) mg/dL Creatinine 5.78 H (0.66-1.25) mg/dL Glucose 57 L (74-99) mg/dL Calcium 9.0 (8.4-10.2) mg/dL TSH 4.590 (0.465-4.680) mIU/L 08/16/20 08/16/20 Range/Units 01:59 06:53 Sodium 132 L (137-145) mmol/L Potassium 5.7 H (3.5-5.1) mmol/L Chloride 100 (98-107) mmol/L Carbon Dioxide 19 L (22-30) mmol/L BUN 126 H* (9-20) mg/dL Creatinine 5.34 H (0.66-1.25) mg/dL Glucose 155 H 192 H (74-99) mg/dL Calcium 8.1 L (8.4-10.2) mg/dL TSH (0.465-4.680) mIU/L Adrenal panel 08/15/20 08/15/20 08/15/20 Range/Units 13:52 17:46 21:24 Sodium 133 L (137-145) mmol/L Potassium 7.5 H* 6.1 H* 6.0 H (3.5-5.1) mmol/L Chloride 109 H (98-107) mmol/L Carbon Dioxide 14 L (22-30) mmol/L BUN 134 H* (9-20) mg/dL Creatinine 5.78 H (0.66-1.25) mg/dL Glucose 57 L (74-99) mg/dL Calcium 9.0 (8.4-10.2) mg/dL Total Bilirubin 0.5 (0.2-1.3) mg/dL AST 21 (17-59) U/L ALT 6 (4-49) U/L Alkaline Phosphatase 94 (38-126) U/L Total Protein 6.7 (6.3-8.2) g/dL Albumin 3.8 (3.5-5.0) g/dL 08/16/20 08/16/20 Range/Units 01:59 06:53 Sodium 132 L (137-145) mmol/L Potassium 5.7 H (3.5-5.1) mmol/L Chloride 100 (98-107) mmol/L Carbon Dioxide 19 L (22-30) mmol/L BUN 126 H* (9-20) mg/dL Creatinine 5.34 H (0.66-1.25) mg/dL Glucose 155 H 192 H (74-99) mg/dL Calcium 8.1 L (8.4-10.2) mg/dL Total Bilirubin 0.6 (0.2-1.3) mg/dL AST 21 (17-59) U/L ALT 9 (4-49) U/L Alkaline Phosphatase 89 (38-126) U/L Total Protein 6.2 L (6.3-8.2) g/dL Albumin 3.6 (3.5-5.0) g/dL Assessment and Plan Assessment: Impression: arf on crf. INcomplete bladder emptying. Plan: indwelling catheter while possible uti is clarified as well and arf is dealt with
[2020-08-16] MEDS: DOCUSATE 100 MG CAP PO SCH (08:40)
[2020-08-16 08:59] LABS: Potassium 6.7 mmol/L (3.5-5.1)
[2020-08-16] MEDS ORDERED: FUROSEMIDE 40 MG TAB PO SCH (09:00)
[2020-08-16] MEDS: ALBUTEROL HFA INHALER INHALATION PRN ×2 (09:10→14:16)
--- NOTE | 2020-08-16 09:13 | US ---
EXAMINATION TYPE: US renals and bladder DATE OF EXAM: 08/16/2020 COMPARISON: US, CT dated 03/12/2020 CLINICAL HISTORY: AKF. renal stones per patient, acute kidney failure EXAM MEASUREMENTS: Right Kidney: 9.6 x 5.9 x 4.6 cm Left Kidney: 9.8 x 4.4 x 4.5 cm Post Void Residual Volume: not assessed on inpatient with indwelling bladder catheter Right Kidney: mid sinus cyst is noted = 0.7 x 0.7 x 0.6cm Left Kidney: hyperechoic, shadowing focus noted mid lower cortex and may be renal stone vs. calcified vessel elkins. Bladder: indwelling bladder catheter is noted with thickened bladder elkins There is no evidence for hydronephrosis at this point in time. Cortical medullary differentiation is maintained, there is cortical thinning suspected bilaterally. IMPRESSION: Indeterminate echogenic focus within the cortex of the left kidney measures 7 mm in greatest dimensio n. Cortical thinning. No evident hydronephrosis.
[2020-08-16] MEDS ORDERED: DEXTROSE 50% SYRINGE 50 ML IVP STA (09:23)
[2020-08-16] MEDS ORDERED: SODIUM BICARB 8.4% 50 ML SYR (1 MEQ/ML) IV STA (09:23)
[2020-08-16] MEDS ORDERED: INSULIN REGULAR 100 UNIT/ML VIAL IV ONE (09:23)
[2020-08-16] MEDS ORDERED: CALCIUM GLUCONATE 1 GM in SODIUM CHLORIDE 0.9% 100 ML IVPB ONE (09:30)
--- NOTE | 2020-08-16 10:51 | P.PN ---
Subjective 85-year-old male one of my office patient with multiple medical problem was known to have history of chronic kidney disease, type 2 diabetes with multiple complication, severe lower back pain post surgery, history of gout atherosclerotic heart disease and severe BPH was known to have history of chronic pain syndrome who was in the hospital last time and [facility] in 03/12/2024 sepsis with right lower quadrant pain along with pyelonephritis with acute kidney failure feel to outpatient treatment management post IV antibiotics for. 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 Patient also known to have a chronic history of atherosclerotic heart disease with diastolic congestive heart failure has been on medication with good respond the management so far. Patient has been watch for outpatient management was started for UTI on Bactrim DS had a blood work done recently showed severe hyperkalemia with acute kidney injury with BUN of 134 creatinine 5.78 with potassium of 7.5 with peak T waves on EKG test. [facility] was started on sodium bicarbonate, D50 with insulin along with axillary to bring his potassium down repeat potassium level second time down to 6.0 blood sugar was mildly elevated patient still tested positive UA for infection patient will be hospitalized started on IV antibiotic continue hydration and consult nephrology while were holding diuretics and all nephrotoxic agent to improve the kidney function also renal ultrasound will be ordered for tomorrow morning. 08/16: Patient evaluated this morning. Noted to be resting in bedside chair, had complaints of mild hallucinations last night and today. Patient had a renal ultrasound this morning that showed indeterminate echogenic focus within the cortex of left kidney measuring 7 mm, cortical thinning, no hydronephrosis. Labs this morning reveal potassium 6.7 BUN 126 creatinine 5.34, kidney function and hyperkalemia did not improve from yesterday's labs. Nephrology and urology's consult appreciated. Patient will be going for a temporary dialysis catheter today with plans for urgent dialysis. Objective - Vital Signs Vital signs: Vital Signs Temp 96.7 F L 08/16/20 08:52 Pulse 83 08/16/20 08:52 Resp 18 08/16/20 08:52 BP 110/58 08/16/20 08:52 Pulse Ox 96 08/16/20 08:52 Intake & Output 08/15/20 08/16/20 08/16/20 18:59 06:59 18:59 Intake Total 1280 Output Total 745 Balance 535 Weight 102.058 kg 110.5 kg Intake: Intake, IV Titration 800 Amount Ampicillin-Sulbactam 1.5 50 gm In Sodium Chloride 0.9 % 50 ml @ 100 mls/hr IVPB Q24H RUPERTO Rx#:[id number] Dextrose 5% in Water 1, 750 000 ml @ 100 mls/hr IV . [id number] RUPERTO with Sodium Bicarb (1 Meq/ml) 150 ml Rx#:[id number] Sodium Chloride 0.9% 1, 0 000 ml @ 80 mls/hr IV . [id number] RUPERTO Rx#:[id number] Oral 480 Output: Urine 745 - Exam General Appearance: Alert, cooperative, no distress, appears stated age. Neck HEENT: Supple, no lymphadenopathy, no thyroid enlargement, no carotid bruits. Lungs: Decreased breath sound bilaterally with fine rhonchi mild crackles in the bases with mild wheezes. Chest Wall: Decreased expansion with deep inspiration no tenderness and no deformity was found on exam, no costochondral pain or discomfort. Heart: Regular rate and rhythm, S1, S2 positive S3 positive systolic murmur. Back: Symmetric, no curvature, ROM normal, no CVA tenderness. Abdomen: Soft positive bowel sounds slight discomfort and lower abdominal region area in the flank area mostly in the left side. Extremities: Decreased breath some bilaterally specially the right side positive small area of ulcerated with infected side around the lateral side of the ankle area on the right compared to the left, slight decreased sensation with significant neuropathy bilaterally. Pulses: 2+ and symmetric Skin: Skin color, texture, tugor normal, no rashes or lesions Neurologic: Alert oriented x3 cranial nerves II through XII intact, no motor deficit, positive normal balance and gait - Labs CBC & Chem 7: 08/16/20 06:53 08/16/20 06:53 Labs: Abnormal Lab Results - Last 24 Hours (Table) 08/15/20 08/15/20 08/15/20 Range/Units 13:25 13:52 13:52 RBC 3.68 L (4.30-5.90) m/uL Hgb 10.9 L (13.0-17.5) gm/dL Hct 34.4 L (39.0-53.0) % Plt Count 116 L (150-450) k/uL Lymphocytes # (1.0-4.8) k/uL D-Dimer (<0.60) mg/L FEU ABG pCO2 (35-45) mmHg ABG pO2 (83-108) mmHg ABG HCO3 (21-25) mmol/L Sodium 133 L (137-145) mmol/L Potassium 7.5 H* (3.5-5.1) mmol/L Chloride 109 H (98-107) mmol/L Carbon Dioxide 14 L (22-30) mmol/L BUN 134 H* (9-20) mg/dL Creatinine 5.78 H (0.66-1.25) mg/dL Glucose 57 L (74-99) mg/dL POC Glucose (mg/dL) (75-99) mg/dL Calcium (8.4-10.2) mg/dL Magnesium 2.7 H (1.6-2.3) mg/dL Lactate Dehydrogenase 636 H (313-618) U/L Total Protein (6.3-8.2) g/dL Procalcitonin (0.02-0.09) ng/mL Urine Blood (Negative) Ur Leukocyte Esterase (Negative) Urine WBC (0-5) /hpf Urine WBC Clumps (None) /hpf Hyaline Casts (0-2) /lpf Urine Mucus (None) /hpf 08/15/20 08/15/20 08/15/20 Range/Units 15:22 15:22 15:22 RBC (4.30-5.90) m/uL Hgb (13.0-17.5) gm/dL Hct (39.0-53.0) % Plt Count (150-450) k/uL Lymphocytes # (1.0-4.8) k/uL D-Dimer 1.52 H (<0.60) mg/L FEU ABG pCO2 (35-45) mmHg ABG pO2 (83-108) mmHg ABG HCO3 (21-25) mmol/L Sodium (137-145) mmol/L Potassium (3.5-5.1) mmol/L Chloride (98-107) mmol/L Carbon Dioxide (22-30) mmol/L BUN (9-20) mg/dL Creatinine (0.66-1.25) mg/dL Glucose (74-99) mg/dL POC Glucose (mg/dL) (75-99) mg/dL Calcium (8.4-10.2) mg/dL Magnesium (1.6-2.3) mg/dL Lactate Dehydrogenase (313-618) U/L Total Protein (6.3-8.2) g/dL Procalcitonin 0.15 H (0.02-0.09) ng/mL Urine Blood Small H (Negative) Ur Leukocyte Esterase Moderate H (Negative) Urine WBC 15 H (0-5) /hpf Urine WBC Clumps Few H (None) /hpf Hyaline Casts 7 H (0-2) /lpf Urine Mucus Rare H (None) /hpf 08/15/20 08/15/20 08/15/20 Range/Units 17:46 21:14 21:24 RBC (4.30-5.90) m/uL Hgb (13.0-17.5) gm/dL Hct (39.0-53.0) % Plt Count (150-450) k/uL Lymphocytes # (1.0-4.8) k/uL D-Dimer (<0.60) mg/L FEU ABG pCO2 (35-45) mmHg ABG pO2 (83-108) mmHg ABG HCO3 (21-25) mmol/L Sodium (137-145) mmol/L Potassium 6.1 H* 6.0 H (3.5-5.1) mmol/L Chloride (98-107) mmol/L Carbon Dioxide (22-30) mmol/L BUN (9-20) mg/dL Creatinine (0.66-1.25) mg/dL Glucose (74-99) mg/dL POC Glucose (mg/dL) 235 H (75-99) mg/dL Calcium (8.4-10.2) mg/dL Magnesium (1.6-2.3) mg/dL Lactate Dehydrogenase (313-618) U/L Total Protein (6.3-8.2) g/dL Procalcitonin (0.02-0.09) ng/mL Urine Blood (Negative) Ur Leukocyte Esterase (Negative) Urine WBC (0-5) /hpf Urine WBC Clumps (None) /hpf Hyaline Casts (0-2) /lpf Urine Mucus (None) /hpf 08/15/20 08/16/2020 Range/Units 23:41 01:55 01:59 RBC (4.30-5.90) m/uL Hgb (13.0-17.5) gm/dL Hct (39.0-53.0) % Plt Count (150-450) k/uL Lymphocytes # (1.0-4.8) k/uL D-Dimer (<0.60) mg/L FEU ABG pCO2 (35-45) mmHg ABG pO2 (83-108) mmHg ABG HCO3 (21-25) mmol/L Sodium (137-145) mmol/L Potassium 5.7 H (3.5-5.1) mmol/L Chloride (98-107) mmol/L Carbon Dioxide (22-30) mmol/L BUN (9-20) mg/dL Creatinine (0.66-1.25) mg/dL Glucose 155 H (74-99) mg/dL POC Glucose (mg/dL) 120 H 38 L (75-99) mg/dL Calcium (8.4-10.2) mg/dL Magnesium (1.6-2.3) mg/dL Lactate Dehydrogenase (313-618) U/L Total Protein (6.3-8.2) g/dL Procalcitonin (0.02-0.09) ng/mL Urine Blood (Negative) Ur Leukocyte Esterase (Negative) Urine WBC (0-5) /hpf Urine WBC Clumps (None) /hpf Hyaline Casts (0-2) /lpf Urine Mucus (None) /hpf 08/16/20 08/16/20 08/16/20 Range/Units 02:06 02:09 03:01 RBC (4.30-5.90) m/uL Hgb (13.0-17.5) gm/dL Hct (39.0-53.0) % Plt Count (150-450) k/uL Lymphocytes # (1.0-4.8) k/uL D-Dimer (<0.60) mg/L FEU ABG pCO2 32 L (35-45) mmHg ABG pO2 73 L (83-108) mmHg ABG HCO3 18 L (21-25) mmol/L Sodium (137-145) mmol/L Potassium (3.5-5.1) mmol/L Chloride (98-107) mmol/L Carbon Dioxide (22-30) mmol/L BUN (9-20) mg/dL Creatinine (0.66-1.25) mg/dL Glucose (74-99) mg/dL POC Glucose (mg/dL) 176 H 111 H (75-99) mg/dL Calcium (8.4-10.2) mg/dL Magnesium (1.6-2.3) mg/dL Lactate Dehydrogenase (313-618) U/L Total Protein (6.3-8.2) g/dL Procalcitonin (0.02-0.09) ng/mL Urine Blood (Negative) Ur Leukocyte Esterase (Negative) Urine WBC (0-5) /hpf Urine WBC Clumps (None) /hpf Hyaline Casts (0-2) /lpf Urine Mucus (None) /hpf 08/16/20 08/16/20 08/16/20 Range/Units 06:01 06:53 06:53 RBC 3.49 L (4.30-5.90) m/uL Hgb 10.4 L (13.0-17.5) gm/dL Hct 32.8 L (39.0-53.0) % Plt Count 106 L (150-450) k/uL Lymphocytes # 0.6 L (1.0-4.8) k/uL D-Dimer (<0.60) mg/L FEU ABG pCO2 (35-45) mmHg ABG pO2 (83-108) mmHg ABG HCO3 (21-25) mmol/L Sodium 132 L (137-145) mmol/L Potassium 6.7 H* (3.5-5.1) mmol/L Chloride (98-107) mmol/L Carbon Dioxide 19 L (22-30) mmol/L BUN 126 H* (9-20) mg/dL Creatinine 5.34 H (0.66-1.25) mg/dL Glucose 192 H (74-99) mg/dL POC Glucose (mg/dL) 236 H (75-99) mg/dL Calcium 8.1 L (8.4-10.2) mg/dL Magnesium (1.6-2.3) mg/dL Lactate Dehydrogenase (313-618) U/L Total Protein 6.2 L (6.3-8.2) g/dL Procalcitonin (0.02-0.09) ng/mL Urine Blood (Negative) Ur Leukocyte Esterase (Negative) Urine WBC (0-5) /hpf Urine WBC Clumps (None) /hpf Hyaline Casts (0-2) /lpf Urine Mucus (None) /hpf Microbiology - Last 24 Hours (Table) 08/15/20 15:22 Urine Culture - Preliminary Urine,Voided Assessment and Plan Plan: 1 acute kidney injury most likely ATN and possibly secondary to medications specially Bactrim, we'll start medication continue hydration take away any nephrotoxic agent for now. Consult nephrology renal ultrasound completed, will arrange for temporary dialysis catheter and urgent dialysis today. 2 severe hyperkalemia: Continue acute potassium management with sodium bicarbonate, D50 with insulin along with calcium gluconate, continue hydration and fluid resuscitation repeat potassium every 6 hours until tomorrow morning. 3 reaction to medication most likely Bactrim DS take away the medication at this point continue hydration no need for any steroid use at this point. 4 diastolic congestive heart failure: Patient has been on medical management with furosemide 40 mg twice a day, nitro, lisinopril and metoprolol. Patient Lasix will be held for now also hold his lisinopril. Take away. 5 nonhealing ulcer with severe cellulitis of the lower extremity specially the right leg Unasyn will be use daily kidney function improved for now. 6 urine tract infection with sepsis: Continue IV antibiotics until again the urine culture is back. 7 severe neuropathy: Has been on Lyrica 100 mg twice a day. 8 atherosclerotic heart disease: Continue medical management no invasive procedure patient seen cardiology regularly. 9 Parkinson disease and tremor: Continue patient on Sinemet 3 times a day along with repeat a pro-. 10 gout: Patient remain on allopurinol 100 mg a day. 11 BPH: Continue to watch for any urinary retention patient remain on Low-Dose and Add Finasteride Has Been Seen Urology Regularly. 12 Arrhythmia with Mild Tachycardia None A. fib Base: Patient Remain on Metoprolol 25 Mg Twice a Day. 13 Hypothyroidism: Continue Levothyroxine at 50 g Daily. 14 Type 2 Diabetes on Insulin: Continue Patient on Long Acting Insulin with Please Review 14 a Daily along with NovoLog per Sliding Scales Coverage. 15 GI Prophylaxis: Patient Will Be on Pepcid 20 Mg Daily. 16 DVT Prophylaxis: Patient Will Be on Heparin Subcutaneous. CODE STATUS: Full Code. The above impression and plan of care have been discussed and directed by signing physician. Maliha Esquivel nurse practitioner acting as scribe for signing physician.
[2020-08-16] MEDS ORDERED: SODIUM BICARB 8.4% 50 ML SYR (1 MEQ/ML) ONE (11:02)
--- NOTE | 2020-08-16 12:06 | CDI ---
Documentation Clarification Form Date: 08/16/2020 11:49:51 AM From: Yazmin Willson RN, CCDS Admit Date: 08/15/2020 03:36:00 PM Patient Name: Asher Wright Visit Number: [id number] ATTENTION: The Clinical Documentation Specialists (CDI) and [facility] Coding Staff appreciate your assistance in clarifying documentation. Please respond to the clarification below the line at the bottom and electronically sign. The CDI & [facility] Coding staff will review the response and follow-up if needed. Please note: Queries are made part of the Legal Health Record. If you have any questions, please contact the author of this message via ITS. Dr. Dejan Adkins CKD is documented in the H&P and progress notes and requires further specificity History/Risk Factors: CKD, Diastolic CHF, DM2, ASHD 07/07/2020 Patients Historical BUN/CR/GFR 85/2.56/22 Clinical Indicators: 111/2-08/16 Current BUN: 134/126 CR: 5.78/5.34 GFR: 808/15 H&P and 08/16 Progress note: "history of chronic kidney disease. Acute kidney injury most likely ATN and possibly secondary to medications specifically Bactrim, we'll start medication continue hydration take away any nephrotoxic agent for now." Treatment: 08/15 0.9%NS IVF Bolus 1L TX of hyperkalemia In order to capture the severity of condition, please clarify the stage of the CKD, if known: CKD Stage 1 (GFR > 90)CKD Stage 2 (GFR 60-89) CKD Stage 3 (GFR 30-59) CKD Stage 4 (GFR 15-29) xxCKD Stage 5 (GFR <15) ESRD Other, please specify Unable to determine (Last Revision: November 2019) MTDD
[2020-08-16 12:20] LABS: Glucose,Whole Blood 322 mg/dL (75-99)
--- NOTE | 2020-08-16 12:23 | CDI ---
Documentation Clarification Form Date: 08/16/2020 12:14:20 PM From: Yazmin Willson RN, CCDS Admit Date: 08/15/2020 03:36:00 PM Patient Name: Asher Wright Visit Number: [id number] ATTENTION: The Clinical Documentation Specialists (CDI) and [facility] Coding Staff appreciate your assistance in clarifying documentation. Please respond to the clarification below the line at the bottom and electronically sign. The CDI & [facility] Coding staff will review the response and follow-up if needed. Please note: Queries are made part of the Legal Health Record. If you have any questions, please contact the author of this message via ITS. Dr. Dejan Adkins Diastolic CHF is documented in the Attending H&P and Progress note and requires an acuity. History/Risk Factors: ANNMARIE with ATN on CKD, DM2, Diastolic CHF, ASHD, Hypothyroidism Clinical Indicators: 08/15-08/16 H&P and Attending Progress Note: " diastolic congestive heart failure: Patient has been on medical management with furosemide 40 mg twice a day, nitro, Lisinopril and metoprolol." 08/15 1207 Admission VS/Pulse OX: Temp 97.3, HR 65, RR 18, B/P 94/59, Spo2 95% RA BNP: not done 04/29/2018 Echocardiogram Results: EF 55-60% with moderate concentric LVH Chest X Ray: not done Treatment: 08/15 1439 Lasix 40 mg IVP x 1 10/15 1439 0.9% NS IVF Bolus 1L 08/16 090- Current Lasix 40 mg Po BID Lopressor 25 mg Po BID In your professional opinion, can you please clarify the acuity and type of CHF if known? Diastolic Heart Failure: Acute Chronic xx Acute on Chronic Unable to Determine Other, please specify (Last Revision: January 2018) MTDD
--- NOTE | 2020-08-16 12:48 | P.NPCON ---
History of Present Illness - Reason for Consult acute renal failure, chronic renal failure - History of Present Illness Reason for consultation: Acute kidney injury on chronic kidney disease History of present illness: Patient is a 85-year-old male seen in renal consultation for acute kidney injury on chronic kidney disease. Patient has chronic kidney disease stage IIIB with baseline creatinine in the range of 2-2.5. Creatinine was 5.78 on admission and is 5.34 today. Potassium level was elevated at 7.5 which was medically treated. He currently has a Stapleton catheter and is nonoliguric. Urine output about 800- 900 mL overnight. He is maintained on bicarb drip running in the 100 mL an hour. Potassium level did improve to 5.7 as of 2 AM but was up to 6.7 this morning again. No significant improvement in renal function. Acidosis improved. Bicarb level 19 this morning. He did have an episode of chest pain earlier which improved the nitro drip. Cardiology will be consulted stat to see him. Denies vomiting or diarrhea. No fever or chills. No hematuria. Oral intake has been fair. He does have long-standing history of diabetes mellitus. He was also being treated with Bactrim for UTI outpatient. He was also on lisinopril which is currently held. Blood sugars are fairly stable. Denies use of nonsteroidals. Blood pressure was low in the systolic 90s on admission but better now. He also has history of urinary retention and follows with urology outpatient. Vital signs are stable. General: The patient appeared well nourished and normally developed. HEENT: Head exam is unremarkable. Neck is without jugular venous distension. LUNGS: Breath sounds decreased. HEART: Rate and Rhythm are regular. ABDOMEN: Soft, nontender. EXTREMITITES: No edema. Past Medical History Past Medical History: Coronary Artery Disease (CAD), Cancer, Chest Pain / Angina, Diabetes Mellitus, Hyperlipidemia, Hypertension, Osteoarthritis (OA), Prostate Disorder, Renal Disease Additional Past Medical History / Comment(s): parkinson's, hx gout, hx basal cell carcinoma on head, melanoma lt shoulder, hx kidney stones, currently 2 saritha dder stones, hx migraines, constipation, History of Any Multi-Drug Resistant Organisms: None Reported, MRSA Date of last positivie culture/infection: 2004 MDRO Source:: rt shoulder Past Surgical History: Back Surgery, Cholecystectomy, Ear Surgery, Heart Catheterization, Heart Catheterization With Stent, Joint Replacement, Orthopedic Surgery, Tonsillectomy Additional Past Surgical History / Comment(s): cody knee replacement, cody. carpal tunnel release, cody shoulder rotator cuff repair, back surgery x5, (laminectomy, laminectomy with fusion, laminectomy and partial removal of fusion x2) lumbar fusionL4,L5, lt ear surgery x3 with replacement malleus/incus/stapes, revision of tympanoplasty, wide excision melanoma left shoulder, I&D rt thumb, lithotripsy,cystoscopy with kidney stone retrieved, cody cataracts, face and left ear multiple lesion removal, oral surgery, one cardiac stent, cody knee arthroscopy, debridement of rt shoulder x 2 with partial closure of rt shoulder, Past Anesthesia/Blood Transfusion Reactions: Family History of Problems w/ Anesthesia Additional Past Anesthesia/Blood Transfusion Reaction / Comment(s): hx vertigo, brother had issues-not sure what it was Date of Last Stent Placement:: 06/2018 Past Psychological History: No Psychological Hx Reported Smoking Status: Never smoker Past Alcohol Use History: None Reported Past Drug Use History: None Reported - Past Family History Mother Family Medical History: Cancer Father Family Medical History: Coronary Artery Disease (CAD), Hypertension Brother(s) Family Medical History: Cancer Sister(s) Family Medical History: Cancer, COPD, Diabetes Mellitus, Hypertension Medications and Allergies Home Medications Medication Instructions Recorded Confirmed Type Cyclobenzaprine [Flexeril] 10 mg PO HS 06/02/16 08/15/20 History allopurinoL [Zyloprim] 100 mg PO W/SUPPER 06/02/16 08/15/20 History Cetirizine HCl [Zyrtec] 10 mg PO DAILY 05/26/18 08/15/20 History Finasteride [Proscar] 5 mg PO W/SUPPER 05/26/18 08/15/20 History Metoprolol Tartrate [Lopressor] 25 mg PO BID-W/MEALS 05/26/18 08/15/20 History Tamsulosin HCl [Flomax] 0.4 mg PO PC-BRKFST 05/26/18 08/15/20 History Isosorbide Mononitrate ER [Imdur] 30 mg PO DAILY #30 tab.er.24h 06/04/18 08/15/20 Rx Nitroglycerin Sl Tabs [Nitrostat] 0.4 mg SUBLINGUAL Q5M PRN #25 tab 06/04/18 08/15/20 Rx Aspirin 81 mg PO DAILY 07/18/19 08/15/20 History Atorvastatin [Lipitor] 40 mg PO W/SUPPER 07/18/19 08/15/20 History Carbidopa-Levodopa 25-100 mg 1 tab PO TID 07/18/19 08/15/20 History [Sinemet 25-100 mg] Ergocalciferol [Vitamin D2 50,000 unit PO Q14D 07/18/19 08/15/20 History (DRISDOL)] Insulin Glargine,Hum.rec.anlog 40 units SQ DAILY 07/18/19 08/15/20 History [Toujeo Solostar] polyethylene glycoL 3350 [Miralax] 17 gm PO DAILY #0 powd.pack 07/21/19 08/15/20 Rx calcitrioL [Rocaltrol] 0.25 mg PO OLSON 09/28/19 08/15/20 History Furosemide [Lasix] 40 mg PO BID@0900,1600 tab 03/15/20 08/15/20 Rx Albuterol Sulfate [Proair Hfa] 2 puff INHALATION Q4H PRN 08/15/20 08/15/20 History Docusate [Colace] 100 mg PO DAILY 08/15/20 08/15/20 History Hydrocodone/Acetaminophen [[place] 1 - 2 tab PO Q46H PRN 08/15/20 08/15/20 History 10-325] INSULIN ASPART (NovoLOG) [NovoLOG See Protocol SQ AC-TID 08/15/20 08/15/20 History (formulary)] Levothyroxine Sodium [Synthroid] 50 mcg PO DAILY 08/15/20 08/15/20 History Pregabalin [Lyrica] 100 mg PO BID 08/15/20 08/15/20 History SILVER sulfADIAZINE CREAM 1 applic TOPICAL DAILY 08/15/20 08/15/20 History [Silvadene Cream] Sulfamethox-Tmp 800-160Mg [Bactrim 1 tab PO Q12HR 08/15/20 08/15/20 History DS 800-160 mg] lisinopriL [Zestril] 2.5 mg PO W/SUPPER 08/15/20 08/15/20 History rOPINIRole HCL [Requip] 1 mg PO BID 08/15/20 08/15/20 History Allergies Allergy/AdvReac Type Severity Reaction Status Date / Time baclofen AdvReac Severe Nausea & Verified 08/15/20 14:24 Vomiting hydromorphone HCl AdvReac Nausea & Verified 08/15/20 14:24 [From Dilaudid] Vomiting morphine AdvReac Hallucinati Verified 08/15/20 14:24 ons vancomycin AdvReac Chills, Verified 08/15/20 14:24 Sweating, Did not feel well Physical Exam Vitals: Vital Signs Temp Pulse Pulse Resp BP BP Pulse Ox 08/16/20 08:52 96.7 F L 83 18 110/58 96 08/16/20 04:39 74 18 08/16/20 03:54 74 18 08/16/20 03:53 98.3 F 74 18 108/50 95 08/16/20 02:16 95 08/16/20 00:00 68 18 106/54 95 08/15/20 20:26 96.9 F L 08/15/20 20:00 75 18 08/15/20 19:33 68 18 115/69 98 08/15/20 18:23 110/76 08/15/20 17:56 76 18 94 L 08/15/20 16:21 98.2 F 75 20 109/60 94 L 08/15/20 15:40 80 08/15/20 15:30 71 08/15/20 15:12 60 Intake and Output 08/15/20 08/16/20 08/16/20 22:59 06:59 14:59 Intake Total 1280 Output Total 745 Balance 535 Intake: Intake, IV Titration 800 Amount Ampicillin-Sulbactam 1.5 50 gm In Sodium Chloride 0.9 % 50 ml @ 100 mls/hr IVPB Q24H RUPERTO Rx#:[id number] Dextrose 5% in Water 1, 750 000 ml @ 100 mls/hr IV . [id number] RUPERTO with Sodium Bicarb (1 Meq/ml) 150 ml Rx#:[id number] Sodium Chloride 0.9% 1, 0 000 ml @ 80 mls/hr IV . [id number] RUPERTO Rx#:[id number] Oral 480 Output: Urine 745 Other: Weight 102.058 kg 110.5 kg Results - Lab Results Most recent lab results ABG pH 7.36 (7.35-7.45) 08/16/20 02:06 ABG pCO2 32 mmHg (35-45) L 08/16/20 02:06 ABG pO2 73 mmHg (83-108) L 08/16/20 02:06 ABG HCO3 18 mmol/L (21-25) L 08/16/20 02:06 ABG O2 Saturation 95.8 % (94-97) 08/16/20 02:06 Calcium 8.1 mg/dL (8.4-10.2) L 08/16/20 06:53 Magnesium 2.7 mg/dL (1.6-2.3) H 08/15/20 13:52 08/16/20 06:53 08/16/20 06:53 Assessment and Plan Plan: Assessment: 1. Acute kidney injury secondary to ATN secondary to hypotension and Bactrim. Creatinine 5.76 on admission and is 5.34 today. No evidence of urinary retention. No hydronephrosis noted on kidney ultrasound. No proteinuria on UA. 2. Hyperkalemia secondary to acute kidney injury, metabolic acidosis and Bactrim. 3. Metabolic acidosis secondary to acute kidney injury. 4. Chronic kidney disease stage III with baseline creatinine in the range of 2- 2.5 secondary to nephrosclerosis. 5. Diabetes mellitus. 6. History of urinary retention. Currently has Stapleton catheter. Urology following. Maintained on Flomax. 7. Recent UTI. Was taking Bactrim outpatient. 8. Chronic kidney disease mineral bone disease maintained on calcitriol. Plan: Maintain bicarb drip at 100 mL an hour. Hyperkalemia was again medically treated this morning with IV calcium, IV insulin with D50 as well as sodium bicarb IV push. Vascular surgery consulted for dialysis catheter placement. Plan for hemodialysis today for refractory hyperkalemia. Continue to monitor renal function and urine output. Avoid nephrotoxins. Follow up cultures. Thank you for the consultation. I will continue to follow patient with you during his hospital stay.
[2020-08-16 15:23] LABS: Ferritin 177.2 ng/mL (22.0-322.0)
--- NOTE | 2020-08-16 15:42 | P.GSCN ---
History of Present Illness History of present illness: 85-year-old gentleman history of acute chronic renal failure patient came with the sclerae 4.78 potassium of 7.5 consulted urgently placement of the dialysis catheter. Patient has history of diabetes urinary tract infection and a large prostate coronary artery disease Neck examination neck is supple no bruit appreciated Chest is clear first and second sound normal Abdomen soft nontender vascular examination femorals are not palpable Plan is placement of the dialysis catheter risk and complication discussed Past Medical History Past Medical History: Coronary Artery Disease (CAD), Cancer, Chest Pain / Angina, Diabetes Mellitus, Hyperlipidemia, Hypertension, Osteoarthritis (OA), Prostate Disorder, Renal Disease Additional Past Medical History / Comment(s): parkinson's, hx gout, hx basal cell carcinoma on head, melanoma lt shoulder, hx kidney stones, currently 2 bladder stones, hx migraines, constipation, History of Any Multi-Drug Resistant Organisms: None Reported, MRSA Year Discovered:: 2004 MDRO Source:: rt shoulder Past Surgical History: Back Surgery, Cholecystectomy, Ear Surgery, Heart Catheterization, Heart Catheterization With Stent, Joint Replacement, Orthopedic Surgery, Tonsillectomy Additional Past Surgical History / Comment(s): cody knee replacement, cody. carpal tunnel release, cody shoulder rotator cuff repair, back surgery x5, (laminectomy, laminectomy with fusion, laminectomy and partial removal of fusion x2) lumbar fusionL4,L5, lt ear surgery x3 with replacement malleus/incus/stapes, revision of tympanoplasty, wide excision melanoma left shoulder, I&D rt thumb, lithotripsy,cystoscopy with kidney stone retrieved, cody cataracts, face and left ear multiple lesion removal, oral surgery, one cardiac stent, cody knee arthroscopy, debridement of rt shoulder x 2 with partial closure of rt shoulder, Past Anesthesia/Blood Transfusion Reactions: Family History of Problems w/ Anesthesia Additional Past Anesthesia/Blood Transfusion Reaction / Comm: hx vertigo, brother had issues-not sure what it was Date of Last Stent Placement:: 06/2018 Past Psychological History: No Psychological Hx Reported Smoking Status: Never smoker Past Alcohol Use History: None Reported Past Drug Use History: None Reported - Past Family History Mother Family Medical History: Cancer Father Family Medical History: Coronary Artery Disease (CAD), Hypertension Brother(s) Family Medical History: Cancer Sister(s) Family Medical History: Cancer, COPD, Diabetes Mellitus, Hypertension Medications and Allergies Home Medications Medication Instructions Recorded Confirmed Type Cyclobenzaprine [Flexeril] 10 mg PO HS 06/02/16 08/15/20 History allopurinoL [Zyloprim] 100 mg PO W/SUPPER 06/02/16 08/15/20 History Cetirizine HCl [Zyrtec] 10 mg PO DAILY 05/26/18 08/15/20 History Finasteride [Proscar] 5 mg PO W/SUPPER 05/26/18 08/15/20 History Metoprolol Tartrate [Lopressor] 25 mg PO BID-W/MEALS 05/26/18 08/15/20 History Tamsulosin HCl [Flomax] 0.4 mg PO PC-BRKFST 05/26/18 08/15/20 History Isosorbide Mononitrate ER [Imdur] 30 mg PO DAILY #30 tab.er.24h 06/04/18 08/15/20 Rx Nitroglycerin Sl Tabs [Nitrostat] 0.4 mg SUBLINGUAL Q5M PRN #25 tab 06/04/18 08/15/20 Rx Aspirin 81 mg PO DAILY 07/18/19 08/15/20 History Atorvastatin [Lipitor] 40 mg PO W/SUPPER 07/18/19 08/15/20 History Carbidopa-Levodopa 25-100 mg 1 tab PO TID 07/18/19 08/15/20 History [Sinemet 25-100 mg] Ergocalciferol [Vitamin D2 50,000 unit PO Q14D 07/18/19 08/15/20 History (DRISDOL)] Insulin Glargine,Hum.rec.anlog 40 units SQ DAILY 07/18/19 08/15/20 History [Toujeo Solostar] polyethylene glycoL 3350 [Miralax] 17 gm PO DAILY #0 powd.pack 07/21/19 08/15/20 Rx calcitrioL [Rocaltrol] 0.25 mg PO OLSON 09/28/19 08/15/20 History Furosemide [Lasix] 40 mg PO BID@0900,1600 tab 03/15/20 08/15/20 Rx Albuterol Sulfate [Proair Hfa] 2 puff INHALATION Q4H PRN 08/15/20 08/15/20 History Docusate [Colace] 100 mg PO DAILY 08/15/20 08/15/20 History Hydrocodone/Acetaminophen [[place] 1 - 2 tab PO Q46H PRN 08/15/20 08/15/20 History 10-325] INSULIN ASPART (NovoLOG) [NovoLOG See Protocol SQ AC-TID 08/15/20 08/15/20 History (formulary)] Levothyroxine Sodium [Synthroid] 50 mcg PO DAILY 08/15/20 08/15/20 History Pregabalin [Lyrica] 100 mg PO BID 08/15/20 08/15/20 History SILVER sulfADIAZINE CREAM 1 applic TOPICAL DAILY 08/15/20 08/15/20 History [Silvadene Cream] Sulfamethox-Tmp 800-160Mg [Bactrim 1 tab PO Q12HR 08/15/20 08/15/20 History DS 800-160 mg] lisinopriL [Zestril] 2.5 mg PO W/SUPPER 08/15/20 08/15/20 History rOPINIRole HCL [Requip] 1 mg PO BID 08/15/20 08/15/20 History Allergies Allergy/AdvReac Type Severity Reaction Status Date / Time baclofen AdvReac Severe Nausea & Verified 08/15/20 14:24 Vomiting hydromorphone HCl AdvReac Nausea & Verified 08/15/20 14:24 [From Dilaudid] Vomiting morphine AdvReac Hallucinati Verified 08/15/20 14:24 ons vancomycin AdvReac Chills, Verified 08/15/20 14:24 Sweating, Did not feel well Surgical - Exam Vital Signs Temp Pulse Resp BP Pulse Ox 97.3 F L 65 18 94/59 95 08/15/20 12:07 08/15/20 12:07 08/15/20 12:07 08/15/20 12:07 08/15/20 12:07 Results - Labs 08/16/20 06:53 08/16/20 06:53 Abnormal Lab Results - Last 24 Hours (Table) 08/15/20 08/15/20 08/15/20 Range/Units 13:25 15:22 15:22 RBC (4.30-5.90) m/uL Hgb (13.0-17.5) gm/dL Hct (39.0-53.0) % Plt Count (150-450) k/uL Lymphocytes # (1.0-4.8) k/uL D-Dimer 1.52 H (<0.60) mg/L FEU ABG pCO2 (35-45) mmHg ABG pO2 (83-108) mmHg ABG HCO3 (21-25) mmol/L Sodium (137-145) mmol/L Potassium (3.5-5.1) mmol/L Carbon Dioxide (22-30) mmol/L BUN (9-20) mg/dL Creatinine (0.66-1.25) mg/dL Glucose (74-99) mg/dL POC Glucose (mg/dL) (75-99) mg/dL Calcium (8.4-10.2) mg/dL Lactate Dehydrogenase 636 H (313-618) U/L Total Protein (6.3-8.2) g/dL Procalcitonin (0.02-0.09) ng/mL Urine Blood Small H (Negative) Ur Leukocyte Esterase Moderate H (Negative) Urine WBC 15 H (0-5) /hpf Urine WBC Clumps Few H (None) /hpf Hyaline Casts 7 H (0-2) /lpf Urine Mucus Rare H (None) /hpf 08/15/20 08/15/20 08/15/20 Range/Units 15:22 17:46 21:14 RBC (4.30-5.90) m/uL Hgb (13.0-17.5) gm/dL Hct (39.0-53.0) % Plt Count (150-450) k/uL Lymphocytes # (1.0-4.8) k/uL D-Dimer (<0.60) mg/L FEU ABG pCO2 (35-45) mmHg ABG pO2 (83-108) mmHg ABG HCO3 (21-25) mmol/L Sodium (137-145) mmol/L Potassium 6.1 H* (3.5-5.1) mmol/L Carbon Dioxide (22-30) mmol/L BUN (9-20) mg/dL Creatinine (0.66-1.25) mg/dL Glucose (74-99) mg/dL POC Glucose (mg/dL) 235 H (75-99) mg/dL Calcium (8.4-10.2) mg/dL Lactate Dehydrogenase (313-618) U/L Total Protein (6.3-8.2) g/dL Procalcitonin 0.15 H (0.02-0.09) ng/mL Urine Blood (Negative) Ur Leukocyte Esterase (Negative) Urine WBC (0-5) /hpf Urine WBC Clumps (None) /hpf Hyaline Casts (0-2) /lpf Urine Mucus (None) /hpf 08/15/20 08/15/20 08/16/20 Range/Units 21:24 23:41 01:55 RBC (4.30-5.90) m/uL Hgb (13.0-17.5) gm/dL Hct (39.0-53.0) % Plt Count (150-450) k/uL Lymphocytes # (1.0-4.8) k/uL D-Dimer (<0.60) mg/L FEU ABG pCO2 (35-45) mmHg ABG pO2 (83-108) mmHg ABG HCO3 (21-25) mmol/L Sodium (137-145) mmol/L Potassium 6.0 H (3.5-5.1) mmol/L Carbon Dioxide (22-30) mmol/L BUN (9-20) mg/dL Creatinine (0.66-1.25) mg/dL Glucose (74-99) mg/dL POC Glucose (mg/dL) 120 H 38 L (75-99) mg/dL Calcium (8.4-10.2) mg/dL Lactate Dehydrogenase (313-618) U/L Total Protein (6.3-8.2) g/dL Procalcitonin (0.02-0.09) ng/mL Urine Blood (Negative) Ur Leukocyte Esterase (Negative) Urine WBC (0-5) /hpf Urine WBC Clumps (None) /hpf Hyaline Casts (0-2) /lpf Urine Mucus (None) /hpf 08/16/20 08/16/20 08/16/20 Range/Units 01:59 02:06 02:09 RBC (4.30-5.90) m/uL Hgb (13.0-17.5) gm/dL Hct (39.0-53.0) % Plt Count (150-450) k/uL Lymphocytes # (1.0-4.8) k/uL D-Dimer (<0.60) mg/L FEU ABG pCO2 32 L (35-45) mmHg ABG pO2 73 L (83-108) mmHg ABG HCO3 18 L (21-25) mmol/L Sodium (137-145) mmol/L Potassium 5.7 H (3.5-5.1) mmol/L Carbon Dioxide (22-30) mmol/L BUN (9-20) mg/dL Creatinine (0.66-1.25) mg/dL Glucose 155 H (74-99) mg/dL POC Glucose (mg/dL) 176 H (75-99) mg/dL Calcium (8.4-10.2) mg/dL Lactate Dehydrogenase (313-618) U/L Total Protein (6.3-8.2) g/dL Procalcitonin (0.02-0.09) ng/mL Urine Blood (Negative) Ur Leukocyte Esterase (Negative) Urine WBC (0-5) /hpf Urine WBC Clumps (None) /hpf Hyaline Casts (0-2) /lpf Urine Mucus (None) /hpf 08/16/20 08/16/20 08/16/20 Range/Units 03:01 06:01 06:53 RBC 3.49 L (4.30-5.90) m/uL Hgb 10.4 L (13.0-17.5) gm/dL Hct 32.8 L (39.0-53.0) % Plt Count 106 L (150-450) k/uL Lymphocytes # 0.6 L (1.0-4.8) k/uL D-Dimer (<0.60) mg/L FEU ABG pCO2 (35-45) mmHg ABG pO2 (83-108) mmHg ABG HCO3 (21-25) mmol/L Sodium (137-145) mmol/L Potassium (3.5-5.1) mmol/L Carbon Dioxide (22-30) mmol/L BUN (9-20) mg/dL Creatinine (0.66-1.25) mg/dL Glucose (74-99) mg/dL POC Glucose (mg/dL) 111 H 236 H (75-99) mg/dL Calcium (8.4-10.2) mg/dL Lactate Dehydrogenase (313-618) U/L Total Protein (6.3-8.2) g/dL Procalcitonin (0.02-0.09) ng/mL Urine Blood (Negative) Ur Leukocyte Esterase (Negative) Urine WBC (0-5) /hpf Urine WBC Clumps (None) /hpf Hyaline Casts (0-2) /lpf Urine Mucus (None) /hpf 08/16/20 08/16/20 Range/Units 06:53 12:17 RBC (4.30-5.90) m/uL Hgb (13.0-17.5) gm/dL Hct (39.0-53.0) % Plt Count (150-450) k/uL Lymphocytes # (1.0-4.8) k/uL D-Dimer (<0.60) mg/L FEU ABG pCO2 (35-45) mmHg ABG pO2 (83-108) mmHg ABG HCO3 (21-25) mmol/L Sodium 132 L (137-145) mmol/L Potassium 6.7 H* (3.5-5.1) mmol/L Carbon Dioxide 19 L (22-30) mmol/L BUN 126 H* (9-20) mg/dL Creatinine 5.34 H (0.66-1.25) mg/dL Glucose 192 H (74-99) mg/dL POC Glucose (mg/dL) 322 H (75-99) mg/dL Calcium 8.1 L (8.4-10.2) mg/dL Lactate Dehydrogenase (313-618) U/L Total Protein 6.2 L (6.3-8.2) g/dL Procalcitonin (0.02-0.09) ng/mL Urine Blood (Negative) Ur Leukocyte Esterase (Negative) Urine WBC (0-5) /hpf Urine WBC Clumps (None) /hpf Hyaline Casts (0-2) /lpf Urine Mucus (None) /hpf Microbiology - Last 24 Hours (Table) 08/15/20 15:22 Urine Culture - Preliminary Urine,Voided Diabetes panel 08/15/20 08/15/20 08/16/20 Range/Units 17:46 21:24 01:59 Sodium (137-145) mmol/L Potassium 6.1 H* 6.0 H 5.7 H (3.5-5.1) mmol/L Chloride (98-107) mmol/L Carbon Dioxide (22-30) mmol/L BUN (9-20) mg/dL Creatinine (0.66-1.25) mg/dL Glucose 155 H (74-99) mg/dL Calcium (8.4-10.2) mg/dL AST (17-59) U/L ALT (4-49) U/L Alkaline Phosphatase (38-126) U/L Total Protein (6.3-8.2) g/dL Albumin (3.5-5.0) g/dL 08/16/20 Range/Units 06:53 Sodium 132 L (137-145) mmol/L Potassium 6.7 H* (3.5-5.1) mmol/L Chloride 100 (98-107) mmol/L Carbon Dioxide 19 L (22-30) mmol/L BUN 126 H* (9-20) mg/dL Creatinine 5.34 H (0.66-1.25) mg/dL Glucose 192 H (74-99) mg/dL Calcium 8.1 L (8.4-10.2) mg/dL AST 21 (17-59) U/L ALT 9 (4-49) U/L Alkaline Phosphatase 89 (38-126) U/L Total Protein 6.2 L (6.3-8.2) g/dL Albumin 3.6 (3.5-5.0) g/dL Calcium panel 08/16/20 Range/Units 06:53 Calcium 8.1 L (8.4-10.2) mg/dL Albumin 3.6 (3.5-5.0) g/dL Pituitary panel 08/15/20 08/15/20 08/16/20 Range/Units 17:46 21:24 01:59 Sodium (137-145) mmol/L Potassium 6.1 H* 6.0 H 5.7 H (3.5-5.1) mmol/L Chloride (98-107) mmol/L Carbon Dioxide (22-30) mmol/L BUN (9-20) mg/dL Creatinine (0.66-1.25) mg/dL Glucose 155 H (74-99) mg/dL Calcium (8.4-10.2) mg/dL 08/16/20 Range/Units 06:53 Sodium 132 L (137-145) mmol/L Potassium 6.7 H* (3.5-5.1) mmol/L Chloride 100 (98-107) mmol/L Carbon Dioxide 19 L (22-30) mmol/L BUN 126 H* (9-20) mg/dL Creatinine 5.34 H (0.66-1.25) mg/dL Glucose 192 H (74-99) mg/dL Calcium 8.1 L (8.4-10.2) mg/dL Adrenal panel 08/15/20 08/15/20 08/16/20 Range/Units 17:46 21:24 01:59 Sodium (137-145) mmol/L Potassium 6.1 H* 6.0 H 5.7 H (3.5-5.1) mmol/L Chloride (98-107) mmol/L Carbon Dioxide (22-30) mmol/L BUN (9-20) mg/dL Creatinine (0.66-1.25) mg/dL Glucose 155 H (74-99) mg/dL Calcium (8.4-10.2) mg/dL Total Bilirubin (0.2-1.3) mg/dL AST (17-59) U/L ALT (4-49) U/L Alkaline Phosphatase (38-126) U/L Total Protein (6.3-8.2) g/dL Albumin (3.5-5.0) g/dL 08/16/20 Range/Units 06:53 Sodium 132 L (137-145) mmol/L Potassium 6.7 H* (3.5-5.1) mmol/L Chloride 100 (98-107) mmol/L Carbon Dioxide 19 L (22-30) mmol/L BUN 126 H* (9-20) mg/dL Creatinine 5.34 H (0.66-1.25) mg/dL Glucose 192 H (74-99) mg/dL Calcium 8.1 L (8.4-10.2) mg/dL Total Bilirubin 0.6 (0.2-1.3) mg/dL AST 21 (17-59) U/L ALT 9 (4-49) U/L Alkaline Phosphatase 89 (38-126) U/L Total Protein 6.2 L (6.3-8.2) g/dL Albumin 3.6 (3.5-5.0) g/dL
--- NOTE | 2020-08-16 15:44 | P.PCN ---
Description of Procedure: Preoperative diagnoses is acute chronic renal failure with high potassium Postop same Procedure patient was seen right groin was prepped and draped applied the standard manner 1% lidocaine for an infiltrate the right groin area. Ultrasound-guided micropuncture entry to right femoral vein and micropuncture guidewire was passed and 4-Cong[place] dilator advanced. The guidewire. After that we passed a regular guidewire without any resistance and dilator was advanced and then we placed a dialysis catheter flushed with heparin saline and Hep-Lock secured with 3-0 nylon dressing applied patient are to the procedure well
[2020-08-16] MEDS: ATORVASTATIN 40 MG TAB PO SCH (15:56)
[2020-08-16] MEDS: allopurinoL 100 MG TAB PO SCH (15:56)
[2020-08-16] MEDS: FINASTERIDE 5 MG TAB PO SCH (15:56)
[2020-08-16] MEDS ORDERED: INSULIN ASPART (NovoLOG) 100 UNIT/ML VIAL SQ ONE (16:45)
[2020-08-16 17:22] LABS: Glucose,Whole Blood 202 mg/dL (75-99)
[2020-08-16] MEDS: INSULIN ASPART (NovoLOG) 100 UNIT/ML VIAL SQ SCH ×3 (17:58→20:57)
[2020-08-16 19:02] LABS: Glucose,Whole Blood 263 mg/dL (75-99)
[2020-08-16] MEDS: CYCLOBENZAPRINE 10 MG TAB PO SCH (20:32)
[2020-08-16 20:53] LABS: Glucose,Whole Blood 299 mg/dL (75-99)
[2020-08-16 23:13] LABS: Glucose,Whole Blood 230 mg/dL (75-99)
[2020-08-17 01:18] LABS: Hepatitis B Surface Antibody Reactive (Non-Reactive); Hepatitis B Surface Antigen Non-Reactive (Non-Reactive)
[2020-08-17 02:15] LABS: Glucose,Whole Blood 130 mg/dL (75-99)
[2020-08-17] MEDS: DEXTROSE 5% IN WATER 1,000 ML with SODIUM BICARB (1 MEQ/ML) 150 ML IV SCH ×2 (03:47→09:49)
[2020-08-17] MEDS: LEVOTHYROXINE 50 MCG TAB PO SCH (06:04)
[2020-08-17 06:17] LABS: Glucose,Whole Blood 201 mg/dL (75-99)
[2020-08-17] MEDS: INSULIN ASPART (NovoLOG) 100 UNIT/ML VIAL SQ SCH ×5 (06:29→20:54)
[2020-08-17] MEDS: INSULIN DETEMIR (LEVEMIR) 100 UNIT/ML SYR SQ SCH (06:30)
--- NOTE | 2020-08-17 08:03 | P.PN ---
Subjective Progress Note Date: 08/17/20 The patient is in the hospital with acute renal failure. His urine is clear. His urine culture was negative. He is being dialyzed. I will continue to follow with you. Objective - Vital Signs Vital signs: Vital Signs Temp 98.3 F 08/17/20 04:00 Pulse 70 08/17/20 04:00 Resp 20 08/17/20 04:00 BP 134/72 08/17/20 04:00 Pulse Ox 95 08/17/20 04:00 Intake & Output 08/16/20 08/17/20 08/17/20 18:59 06:59 18:59 Intake Total 860 Output Total 1600 900 Balance -740 -900 Weight 109.5 kg Intake: Intake, IV Titration 500 Amount Calcium Gluconate 1 gm In 100 Sodium Chloride 0.9% 100 ml @ 100 mls/hr IVPB ONCE ONE Rx#:[id number] Dextrose 5% in Water 1, 400 000 ml @ 100 mls/hr IV . [id number] RUPERTO with Sodium Bicarb (1 Meq/ml) 150 ml Rx#:[id number] Oral 360 Output: Urine 1600 900 Other: # Bowel Movements 1 - Labs CBC & Chem 7: 08/16/20 06:53 08/16/20 19:50 Labs: Abnormal Lab Results - Last 24 Hours (Table) 08/16/20 08/16/20 08/16/20 Range/Units 06:53 06:53 10:51 RBC 3.49 L (4.30-5.90) m/uL Hgb 10.4 L (13.0-17.5) gm/dL Hct 32.8 L (39.0-53.0) % Plt Count 106 L (150-450) k/uL Lymphocytes # 0.6 L (1.0-4.8) k/uL Sodium 132 L (137-145) mmol/L Potassium 6.7 H* (3.5-5.1) mmol/L Carbon Dioxide 19 L (22-30) mmol/L BUN 126 H* (9-20) mg/dL Creatinine 5.34 H (0.66-1.25) mg/dL Glucose 192 H (74-99) mg/dL POC Glucose (mg/dL) (75-99) mg/dL Calcium 8.1 L (8.4-10.2) mg/dL Total Protein 6.2 L (6.3-8.2) g/dL Hep Bs Antibody Reactive A (Non-Reactive) Hep B Core Total Ab Reactive A (Non-Reactive) 08/16/20 08/16/20 08/16/20 Range/Units 12:17 17:18 19:01 RBC (4.30-5.90) m/uL Hgb (13.0-17.5) gm/dL Hct (39.0-53.0) % Plt Count (150-450) k/uL Lymphocytes # (1.0-4.8) k/uL Sodium (137-145) mmol/L Potassium (3.5-5.1) mmol/L Carbon Dioxide (22-30) mmol/L BUN (9-20) mg/dL Creatinine (0.66-1.25) mg/dL Glucose (74-99) mg/dL POC Glucose (mg/dL) 322 H 202 H 263 H (75-99) mg/dL Calcium (8.4-10.2) mg/dL Total Protein (6.3-8.2) g/dL Hep Bs Antibody (Non-Reactive) Hep B Core Total Ab (Non-Reactive) 08/16/20 08/16/20 08/16/20 Range/Units 19:50 20:52 23:01 RBC (4.30-5.90) m/uL Hgb (13.0-17.5) gm/dL Hct (39.0-53.0) % Plt Count (150-450) k/uL Lymphocytes # (1.0-4.8) k/uL Sodium (137-145) mmol/L Potassium 5.3 H (3.5-5.1) mmol/L Carbon Dioxide (22-30) mmol/L BUN (9-20) mg/dL Creatinine (0.66-1.25) mg/dL Glucose (74-99) mg/dL POC Glucose (mg/dL) 299 H 230 H (75-99) mg/dL Calcium (8.4-10.2) mg/dL Total Protein (6.3-8.2) g/dL Hep Bs Antibody (Non-Reactive) Hep B Core Total Ab (Non-Reactive) 08/17/20 08/17/20 Range/Units 02:03 06:16 RBC (4.30-5.90) m/uL Hgb (13.0-17.5) gm/dL Hct (39.0-53.0) % Plt Count (150-450) k/uL Lymphocytes # (1.0-4.8) k/uL Sodium (137-145) mmol/L Potassium (3.5-5.1) mmol/L Carbon Dioxide (22-30) mmol/L BUN (9-20) mg/dL Creatinine (0.66-1.25) mg/dL Glucose (74-99) mg/dL POC Glucose (mg/dL) 130 H 201 H (75-99) mg/dL Calcium (8.4-10.2) mg/dL Total Protein (6.3-8.2) g/dL Hep Bs Antibody (Non-Reactive) Hep B Core Total Ab (Non-Reactive) Microbiology - Last 24 Hours (Table) 08/15/20 15:22 Blood Culture - Preliminary Blood No Growth after 24 hours 08/15/20 15:22 Urine Culture - Final Urine,Voided
[2020-08-17 08:05] LABS: Calcium 8.3 mg/dL (8.4-10.2); Magnesium 2.1 mg/dL (1.6-2.3); Potassium 5.8 mmol/L (3.5-5.1)
[2020-08-17 09:07] LABS: Basophils % (A) 0 %; Eosinophils # (A) 0.1 k/uL (0-0.7); Eosinophils % (A) 1 %; HCT 33.7 % (39.0-53.0); HGB 10.7 gm/dL (13.0-17.5); Lymphocytes # (A) 0.9 k/uL (1.0-4.8); Lymphocytes % (A) 14 %; MCH 30.5 pg (25.0-35.0); MCHC 31.7 g/dL (31.0-37.0); Mean Platelet Volume 9.1; Monocytes # (A) 0.4 k/uL (0-1.0); Monocytes % (A) 6 %; Neutrophils # (A) 5.4 k/uL (1.3-7.7); Neutrophils % (A) 78 %; Platelet Count 122 k/uL (150-450); RBC 3.51 m/uL (4.30-5.90); RDW 15.4 % (11.5-15.5); WBC 6.9 k/uL (3.8-10.6)
[2020-08-17 09:08] LABS: Calcium 8.1 mg/dL (8.4-10.2); Potassium 5.1 mmol/L (3.5-5.1)
[2020-08-17] MEDS: ALBUTEROL HFA INHALER INHALATION PRN ×2 (09:26→12:46)
--- NOTE | 2020-08-17 09:54 | P.PN ---
Subjective 85-year-old male one of my office patient with multiple medical problem was known to have history of chronic kidney disease, type 2 diabetes with multiple complication, severe lower back pain post surgery, history of gout atherosclerotic heart disease and severe BPH was known to have history of chronic pain syndrome who was in the hospital last time and [facility] in 03/12/2024 sepsis with right lower quadrant pain along with pyelonephritis with acute kidney failure feel to outpatient treatment management post IV antibiotics for. 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 Patient also known to have a chronic history of atherosclerotic heart disease with diastolic congestive heart failure has been on medication with good respond the management so far. Patient has been watch for outpatient management was started for UTI on Bactrim DS had a blood work done recently showed severe hyperkalemia with acute kidney injury with BUN of 134 creatinine 5.78 with potassium of 7.5 with peak T waves on EKG test. [facility] was started on sodium bicarbonate, D50 with insulin along with axillary to bring his potassium down repeat potassium level second time down to 6.0 blood sugar was mildly elevated patient still tested positive UA for infection patient will be hospitalized started on IV antibiotic continue hydration and consult nephrology while were holding diuretics and all nephrotoxic agent to improve the kidney function also renal ultrasound will be ordered for tomorrow morning. 08/16: Patient evaluated this morning. Noted to be resting in bedside chair, had complaints of mild hallucinations last night and today. Patient had a renal ultrasound this morning that showed indeterminate echogenic focus within the cortex of left kidney measuring 7 mm, cortical thinning, no hydronephrosis. Labs this morning reveal potassium 6.7 BUN 126 creatinine 5.34, kidney function and hyperkalemia did not improve from yesterday's labs. Nephrology and urology's consult appreciated. Patient will be going for a temporary dialysis catheter today with plans for urgent dialysis. 08/17: Patient had dialysis catheter placed into the right groin yesterday and received dialysis, plans for another round of dialysis today. Repeat labs today show sodium 135, potassium 5.1, BUN 70, creatinine 3.3. Urine culture was negative, blood cultures show no growth today. Vital signs are stable he's afebrile 96.7, heart rate 71, retrograde 18, blood pressure 124/67, 91% on 2 L nasal cannula. Objective - Vital Signs Vital signs: Vital Signs Temp 96.7 F L 08/17/20 08:29 Pulse 71 08/17/20 08:29 Resp 18 08/17/20 08:29 BP 124/67 08/17/20 08:29 Pulse Ox 91 L 08/17/20 08:30 Intake & Output 08/16/20 08/17/20 08/17/20 18:59 06:59 18:59 Intake Total 860 236 Output Total 1600 900 Balance -740 -900 236 Weight 109.5 kg Intake: Intake, IV Titration 500 Amount Calcium Gluconate 1 gm In 100 Sodium Chloride 0.9% 100 ml @ 100 mls/hr IVPB ONCE ONE Rx#:[id number] Dextrose 5% in Water 1, 400 000 ml @ 100 mls/hr IV . [id number] RUPERTO with Sodium Bicarb (1 Meq/ml) 150 ml Rx#:[id number] Oral 360 236 Output: Urine 1600 900 Other: # Bowel Movements 1 - Exam General Appearance: Alert, cooperative, no distress, appears stated age Neck HEENT: Supple, no lymphadenopathy, no thyroid enlargement, no carotid bruits Lungs: Decreased breath sound bilaterally with fine rhonchi mild crackles in the bases with mild wheezes Chest Wall: Decreased expansion with deep inspiration no tenderness and no deformity was found on exam, no costochondral pain or discomfort. Heart: Regular rate and rhythm, S1, S2 positive S3 positive systolic murmur. Back: Symmetric, no curvature, ROM normal, no CVA tenderness. Abdomen: Soft positive bowel sounds slight discomfort and lower abdominal region area in the flank area mostly in the left side. Extremities: Decreased breath some bilaterally specially the right side positive small area of ulcerated with infected side around the lateral side of the ankle area on the right compared to the left, slight decreased sensation with significant neuropathy bilaterally. Pulses: 2+ and symmetric Skin: Skin color, texture, tugor normal, no rashes or lesions Neurologic: Alert oriented x3 cranial nerves II through XII intact, no motor deficit, positive normal balance and gait - Labs CBC & Chem 7: 08/17/20 08:30 08/17/20 08:30 Labs: Abnormal Lab Results - Last 24 Hours (Table) 08/16/20 08/16/20 08/16/20 Range/Units 10:51 12:17 17:18 RBC (4.30-5.90) m/uL Hgb (13.0-17.5) gm/dL Hct (39.0-53.0) % Plt Count (150-450) k/uL Lymphocytes # (1.0-4.8) k/uL Sodium (137-145) mmol/L Potassium (3.5-5.1) mmol/L Carbon Dioxide (22-30) mmol/L BUN (9-20) mg/dL Creatinine (0.66-1.25) mg/dL Glucose (74-99) mg/dL POC Glucose (mg/dL) 322 H 202 H (75-99) mg/dL Calcium (8.4-10.2) mg/dL Troponin I (0.000-0.034) ng/mL Hep Bs Antibody Reactive A (Non-Reactive) Hep B Core Total Ab Reactive A (Non-Reactive) 08/16/20 08/16/20 08/16/20 Range/Units 19:01 19:50 20:52 RBC (4.30-5.90) m/uL Hgb (13.0-17.5) gm/dL Hct (39.0-53.0) % Plt Count (150-450) k/uL Lymphocytes # (1.0-4.8) k/uL Sodium (137-145) mmol/L Potassium 5.3 H (3.5-5.1) mmol/L Carbon Dioxide (22-30) mmol/L BUN (9-20) mg/dL Creatinine (0.66-1.25) mg/dL Glucose (74-99) mg/dL POC Glucose (mg/dL) 263 H 299 H (75-99) mg/dL Calcium (8.4-10.2) mg/dL Troponin I (0.000-0.034) ng/mL Hep Bs Antibody (Non-Reactive) Hep B Core Total Ab (Non-Reactive) 08/16/20 08/17/20 08/17/20 Range/Units 23:01 02:03 06:16 RBC (4.30-5.90) m/uL Hgb (13.0-17.5) gm/dL Hct (39.0-53.0) % Plt Count (150-450) k/uL Lymphocytes # (1.0-4.8) k/uL Sodium (137-145) mmol/L Potassium (3.5-5.1) mmol/L Carbon Dioxide (22-30) mmol/L BUN (9-20) mg/dL Creatinine (0.66-1.25) mg/dL Glucose (74-99) mg/dL POC Glucose (mg/dL) 230 H 130 H 201 H (75-99) mg/dL Calcium (8.4-10.2) mg/dL Troponin I (0.000-0.034) ng/mL Hep Bs Antibody (Non-Reactive) Hep B Core Total Ab (Non-Reactive) 08/17/20 08/17/20 08/17/20 Range/Units 06:33 08:30 08:30 RBC 3.51 L (4.30-5.90) m/uL Hgb 10.7 L (13.0-17.5) gm/dL Hct 33.7 L (39.0-53.0) % Plt Count 122 L (150-450) k/uL Lymphocytes # 0.9 L (1.0-4.8) k/uL Sodium 136 L 135 L (137-145) mmol/L Potassium 5.8 H (3.5-5.1) mmol/L Carbon Dioxide 31 H (22-30) mmol/L BUN 82 H 70 H (9-20) mg/dL Creatinine 3.79 H 3.31 H (0.66-1.25) mg/dL Glucose 191 H 174 H (74-99) mg/dL POC Glucose (mg/dL) (75-99) mg/dL Calcium 8.3 L 8.1 L (8.4-10.2) mg/dL Troponin I (0.000-0.034) ng/mL Hep Bs Antibody (Non-Reactive) Hep B Core Total Ab (Non-Reactive) 08/17/20 Range/Units 08:34 RBC (4.30-5.90) m/uL Hgb (13.0-17.5) gm/dL Hct (39.0-53.0) % Plt Count (150-450) k/uL Lymphocytes # (1.0-4.8) k/uL Sodium (137-145) mmol/L Potassium (3.5-5.1) mmol/L Carbon Dioxide (22-30) mmol/L BUN (9-20) mg/dL Creatinine (0.66-1.25) mg/dL Glucose (74-99) mg/dL POC Glucose (mg/dL) (75-99) mg/dL Calcium (8.4-10.2) mg/dL Troponin I 0.070 H* (0.000-0.034) ng/mL Hep Bs Antibody (Non-Reactive) Hep B Core Total Ab (Non-Reactive) Microbiology - Last 24 Hours (Table) 08/15/20 15:22 Blood Culture - Preliminary Blood No Growth after 24 hours 08/15/20 15:22 Urine Culture - Final Urine,Voided Assessment and Plan Plan: 1 acute kidney injury most likely ATN and possibly secondary to medications specially Bactrim with chronic stage III kidney disease, we'll start medication continue hydration take away any nephrotoxic agent for now. Consult nephrology renal ultrasound completed, will arrange for temporary dialysis catheter and urgent dialysis today. 2 severe hyperkalemia: Continue acute potassium management with sodium bicarbonate, D50 with insulin along with calcium gluconate, continue hydration and fluid resuscitation repeat potassium every 6 hours until tomorrow morning. 3 reaction to medication most likely Bactrim DS take away the medication at this point continue hydration no need for any steroid use at this point. 4 acute on chronic diastolic congestive heart failure: Patient has been on medical management with furosemide 40 mg twice a day, nitro, lisinopril and metoprolol. Patient Lasix will be held for now also hold his lisinopril. 5 nonhealing ulcer with severe cellulitis of the lower extremity specially the right leg Unasyn will be use daily kidney function improved for now. 6 urine tract infection with sepsis: Continue IV antibiotics until again the urine culture is back. 7 severe neuropathy: Has been on Lyrica 100 mg twice a day. 8 atherosclerotic heart disease: Continue medical management no invasive procedure patient seen cardiology regularly. 9 Parkinson disease and tremor: Continue patient on Sinemet 3 times a day along with repeat a pro-. 10 gout: Patient remain on allopurinol 100 mg a day. 11 BPH: Continue to watch for any urinary retention patient remain on Low-Dose and Add Finasteride Has Been Seen Urology Regularly. 12 Arrhythmia with Mild Tachycardia None A. fib Base: Patient Remain on Metoprolol 25 Mg Twice a Day. 13 Hypothyroidism: Continue Levothyroxine at 50 g Daily. 14 Type 2 Diabetes on Insulin: Continue Patient on Long Acting Insulin with Please Review 14 a Daily along with NovoLog per Sliding Scales Coverage. 15 GI Prophylaxis: Patient Will Be on Pepcid 20 Mg Daily. 16 DVT Prophylaxis: Patient Will Be on Heparin Subcutaneous. CODE STATUS: Full Code. The above impression and plan of care have been discussed and directed by signing physician. Maliha Esquivel nurse practitioner acting as scribe for signing physician.
[2020-08-17] MEDS: FAMOTIDINE 20 MG TAB PO SCH (10:23)
[2020-08-17] MEDS: LORATADINE 10 MG TAB PO SCH (10:23)
[2020-08-17] MEDS: ISOSORBIDE MONONITRATE ER 30 MG TAB.ER.24H PO SCH (10:23)
[2020-08-17] MEDS: CARBIDOPA-LEVODOPA 25-100 MG 1 EACH TAB PO SCH ×3 (10:23→21:02)
[2020-08-17] MEDS: DOCUSATE 100 MG CAP PO SCH (10:23)
[2020-08-17] MEDS: TAMSULOSIN 0.4 MG CAP.ER.24H PO SCH (10:23)
[2020-08-17] MEDS: METOPROLOL TARTRATE 25 MG TAB PO SCH ×2 (10:24→21:02)
[2020-08-17] MEDS: HEPARIN SODIUM,PORCINE 5,000 UNIT/ML 1 ML VIAL SQ SCH ×2 (10:24→21:03)
[2020-08-17] MEDS: ASPIRIN 81 MG PO SCH (10:24)
[2020-08-17] MEDS: CLOPIDOGREL 75 MG TAB PO SCH (10:24)
[2020-08-17] MEDS: SODIUM BICARBONATE TAB 650 MG TAB PO SCH (10:24)
[2020-08-17] MEDS: PREGABALIN 100 MG CAP PO SCH ×2 (10:25→21:03)
[2020-08-17] MEDS: polyethylene glycoL 3350 17 GM POWD.PACK PO SCH (10:25)
--- NOTE | 2020-08-17 11:40 | P.CRDCN ---
History of Present Illness Consult date: 08/17/20 Reason for Consult (text): Chest pain Chief complaint: Weakness History of present illness: This is an 85-year-old gentleman with history of chronic kidney disease, diabetes, hypertension, hyperlipidemia, nicotine dependence, Parkinson's, hypothyroidism, who follows with Dr. Ybarra in the office. Patient also has a known history of coronary artery disease, in May 2018 the patient underwent a cardiac catheterization which revealed an atypical lesion involving the OM branch as well as the circumflex artery. Patient did not undergo intervention at that time because of renal function being elevated. He presents to the hospital on this occasion with symptoms of weakness, mild shortness of breath, [facility] found to be hypotensive. He also had outpatient lab work performed which revealed a significantly elevated potassium as well as abnormal renal function and patient was advised to come to the emergency room. While in the emergency room's transition to the cardiac un it patient did experience an episode of chest tightness which lasted about 15 minutes in duration. An EKG was performed at that time which showed a normal sinus rhythm with ST depression noted in the lateral leads. Last evening patient did have a dialysis catheter placed by Dr. Goodrich. The renal ultrasound was performed which was indeterminant, there was an echogenic focus noted in the left kidney no evidence of hydronephrosis. Blood pressure 134/70 with a heart rate is 70, 95% on 2 L of oxygen. White blood cell count 6.6, hemoglobin 10.9, platelet count 116, d-dimer 1.5, sodium 133, potassium 7.5, BUN 134 and creatinine 5.7, TSH 4.5 with a pro calcitonin of 0.15. These were admission labs, this mornings white blood cell count was 7.4, hemoglobin 10.4, platelet count 106. Sodium 132, potassium 5.3, BUN 126 and creatinine 5.3. The patient was seen and examined this morning, he still continues to feel quite weak, he does state that he feels better than he did on presentation here yesterday. He denies any chest discomfort today and his breathing is overall stable. Past Medical History Past Medical History: Coronary Artery Disease (CAD), Cancer, Chest Pain / Angina, Diabetes Mellitus, Hyperlipidemia, Hypertension, Osteoarthritis (OA), Prostate Disorder, Renal Disease Additional Past Medical History / Comment(s): parkinson's, hx gout, hx basal cell carcinoma on head, melanoma lt shoulder, hx kidney stones, currently 2 bladder stones, hx migraines, constipation, History of Any Multi-Drug Resistant Organisms: None Reported, MRSA Date of last positivie culture/infection: 2004 MDRO Source:: rt shoulder Past Surgical History: Back Surgery, Cholecystectomy, Ear Surgery, Heart Catheterization, Heart Catheterization With Stent, Joint Replacement, Orthopedic Surgery, Tonsillectomy Additional Past Surgical History / Comment(s): cody knee replacement, cody. carpal tunnel release, cody shoulder rotator cuff repair, back surgery x5, (laminectomy, laminectomy with fusion, laminectomy and partial removal of fusion x2) lumbar fusionL4,L5, lt ear surgery x3 with replacement malleus/incus/stapes, revision of tympanoplasty, wide excision melanoma left shoulder, I&D rt thumb, lithotripsy,cystoscopy with kidney stone retrieved, cody cataracts, face and left ear multiple lesion removal, oral surgery, one cardiac stent, cody knee arthroscopy, debridement of rt shoulder x 2 with partial closure of rt shoulder, Past Anesthesia/Blood Transfusion Reactions: Family History of Problems w/ Anesthesia Additional Past Anesthesia/Blood Transfusion Reaction / Comment(s): hx vertigo, brother had issues-not sure what it was Date of Last Stent Placement:: 06/2018 Past Psychological History: No Psychological Hx Reported Smoking Status: Never smoker Past Alcohol Use History: None Reported Past Drug Use History: None Reported - Past Family History Mother Family Medical History: Cancer Father Family Medical History: Coronary Artery Disease (CAD), Hypertension Brother(s) Family Medical History: Cancer Sister(s) Family Medical History: Cancer, COPD, Diabetes Mellitus, Hypertension Medications and Allergies Home Medications Medication Instructions Recorded Confirmed Type Cyclobenzaprine [Flexeril] 10 mg PO HS 06/02/16 08/15/20 History allopurinoL [Zyloprim] 100 mg PO W/SUPPER 06/02/16 08/15/20 History Cetirizine HCl [Zyrtec] 10 mg PO DAILY 05/26/18 08/15/20 History Finasteride [Proscar] 5 mg PO W/SUPPER 05/26/18 08/15/20 History Metoprolol Tartrate [Lopressor] 25 mg PO BID-W/MEALS 05/26/18 08/15/20 History Tamsulosin HCl [Flomax] 0.4 mg PO PC-BRKFST 05/26/18 08/15/20 History Isosorbide Mononitrate ER [Imdur] 30 mg PO DAILY #30 tab.er.24h 06/04/18 08/15/20 Rx Nitroglycerin Sl Tabs [Nitrostat] 0.4 mg SUBLINGUAL Q5M PRN #25 tab 06/04/18 08/15/20 Rx Aspirin 81 mg PO DAILY 07/18/19 08/15/20 History Atorvastatin [Lipitor] 40 mg PO W/SUPPER 07/18/19 08/15/20 History Carbidopa-Levodopa 25-100 mg 1 tab PO TID 07/18/19 08/15/20 History [Sinemet 25-100 mg] Ergocalciferol [Vitamin D2 50,000 unit PO Q14D 07/18/19 08/15/20 History (DRISDOL)] Insulin Glargine,Hum.rec.anlog 40 units SQ DAILY 07/18/19 08/15/20 History [Toujeo Solostar] polyethylene glycoL 3350 [Miralax] 17 gm PO DAILY #0 powd.pack 07/21/19 08/15/20 Rx calcitrioL [Rocaltrol] 0.25 mg PO OLSON 09/28/19 08/15/20 History Furosemide [Lasix] 40 mg PO BID@0900,1600 tab 03/15/20 08/15/20 Rx Albuterol Sulfate [Proair Hfa] 2 puff INHALATION Q4H PRN 08/15/20 08/15/20 History Docusate [Colace] 100 mg PO DAILY 08/15/20 08/15/20 History Hydrocodone/Acetaminophen [[place] 1 - 2 tab PO Q46H PRN 08/15/20 08/15/20 History 10-325] INSULIN ASPART (NovoLOG) [NovoLOG See Protocol SQ AC-TID 08/15/20 08/15/20 Hi story (formulary)] Levothyroxine Sodium [Synthroid] 50 mcg PO DAILY 08/15/20 08/15/20 History Pregabalin [Lyrica] 100 mg PO BID 08/15/20 08/15/20 History SILVER sulfADIAZINE CREAM 1 applic TOPICAL DAILY 08/15/20 08/15/20 History [Silvadene Cream] Sulfamethox-Tmp 800-160Mg [Bactrim 1 tab PO Q12HR 08/15/20 08/15/20 History DS 800-160 mg] lisinopriL [Zestril] 2.5 mg PO W/SUPPER 08/15/20 08/15/20 History rOPINIRole HCL [Requip] 1 mg PO BID 08/15/20 08/15/20 History Allergies Allergy/AdvReac Type Severity Reaction Status Date / Time baclofen AdvReac Severe Nausea & Verified 08/15/20 14:24 Vomiting hydromorphone HCl AdvReac Nausea & Verified 08/15/20 14:24 [From Dilaudid] Vomiting morphine AdvReac Hallucinati Verified 08/15/20 14:24 ons vancomycin AdvReac Chills, Verified 08/15/20 14:24 Sweating, Did not feel well Physical Exam Vitals: Vital Signs Temp Pulse Resp BP Pulse Ox 08/17/20 10:20 75 18 131/49 08/17/20 08:30 91 L 08/17/20 08:29 96.7 F L 71 18 124/67 89 L 08/17/20 04:00 98.3 F 70 20 134/72 95 08/17/20 03:45 75 18 08/17/20 00:00 75 18 126/62 08/16/20 20:00 88 20 08/16/20 19:38 98.5 F 88 20 116/67 94 L 08/16/20 18:11 97.6 F 20 110/65 08/16/20 16:00 97.7 F 77 18 112/54 95 08/16/20 12:00 97.0 F L 90 18 115/66 95 Intake and Output 08/16/20 08/17/20 08/17/20 22:59 06:59 14:59 Intake Total 740 236 Output Total 400 900 Balance 340 -900 236 Intake: Intake, IV Titration 500 Amount Calcium Gluconate 1 gm In 100 Sodium Chloride 0.9% 100 ml @ 100 mls/hr IVPB ONCE ONE Rx#:[id number] Dextrose 5% in Water 1, 400 000 ml @ 100 mls/hr IV . [id number] RUPERTO with Sodium Bicarb (1 Meq/ml) 150 ml Rx#:[id number] Oral 240 236 Output: Urine 400 900 Other: Voiding Method Indwelling Catheter # Bowel Movements 1 Weight 109.5 kg PHYSICAL EXAMINATION: GENERAL: 85-year-old gentleman in no acute distress at the time of my examination HEENT: Head is atraumatic, normocephalic. Pupils equal, round. Sclera anicteric. Conjunctiva are clear. Mucous membranes of the mouth are moist. Neck is supple. There is elevated jugular venous pressure. No carotid bruit is heard. HEART EXAMINATION: Heart S1-S2 a systolic murmur is heard CHEST EXAMINATION: Lungs are clear with diminished air entry to the bases bilaterally . ABDOMEN: Soft, nontender. Bowel sounds are heard. No organomegaly noted. EXTREMITIES: 2+ peripheral pulses with 2+ evidence of peripheral edema and no calf tenderness noted. NEUROLOGIC patient is awake, alert and oriented 3 . Results 08/17/20 08:30 08/17/20 08:30 Cardiac Enzymes 08/17/20 Range/Units 08:34 Troponin I 0.070 H* (0.000-0.034) ng/mL CBC 08/17/20 Range/Units 08:30 WBC 6.9 (3.8-10.6) k/uL RBC 3.51 L (4.30-5.90) m/uL Hgb 10.7 L (13.0-17.5) gm/dL Hct 33.7 L (39.0-53.0) % Plt Count 122 L (150-450) k/uL Comprehensive Metabolic Panel 08/16/20 08/17/20 08/17/20 Range/Units 19:50 06:33 08:30 Sodium 136 L 135 L (137-145) mmol/L Potassium 5.3 H 5.8 H 5.1 (3.5-5.1) mmol/L Chloride 98 98 (98-107) mmol/L Carbon Dioxide 31 H 30 (22-30) mmol/L BUN 82 H 70 H (9-20) mg/dL Creatinine 3.79 H 3.31 H (0.66-1.25) mg/dL Glucose 191 H 174 H (74-99) mg/dL Calcium 8.3 L 8.1 L (8.4-10.2) mg/dL Current Medications Generic Name Dose Route Start Last Admin Trade Name Freq PRN Reason Stop Dose Admin Acetaminophen 650 mg 08/15/20 15:36 Acetaminophen Tab 325 Mg Tab PO Q6HR PRN Mild Pain or Fever > 100.5 Hydrocodone Bitart/Acetaminophen 1 each 08/15/20 17:56 08/16/20 20:31 Hydrocodone/Apap 10-325mg 1 Each Tab PO 1 each Q4H PRN Administration Pain Albuterol Sulfate 2 puff 08/16/20 07:47 08/17/20 09:26 Albuterol Hfa Inhaler INHALATION 2 puff RT-Q4H PRN Administration Shortness Of Breath Allopurinol 100 mg 08/15/20 17:30 08/16/20 15:56 Allopurinol 100 Mg Tab PO 100 mg W/SUPPER RUPERTO Administration Aspirin 81 mg 08/16/20 09:00 08/17/20 10:24 Aspirin 81 Mg PO 81 mg DAILY RUPERTO Administration Atorvastatin Calcium 40 mg 08/15/20 17:30 08/16/20 15:56 Atorvastatin 40 Mg Tab PO 40 mg W/SUPPER RUPERTO Administration Calcitriol 0.25 mcg 08/21/20 09:00 Calcitriol 0.25 Mcg Cap PO OLSON RUPERTO Carbidopa/Levodopa 1 each 08/15/20 16:00 08/17/20 10:23 Carbidopa-Levodopa 25-100 Mg 1 Each Tab PO 1 each TID RUPERTO Administration Clopidogrel Bisulfate 75 mg 08/16/20 09:00 08/17/20 10:24 Clopidogrel 75 Mg Tab PO 75 mg DAILY RUPERTO Administration Cyclobenzaprine HCl 10 mg 08/15/20 21:00 08/16/20 20:32 Cyclobenzaprine 10 Mg Tab PO 10 mg HS RUPERTO Administration Docusate Sodium 100 mg 08/16/20 09:00 08/17/20 10:23 Docusate 100 Mg Cap PO 100 mg DAILY RUPERTO Administration Ergocalciferol 50,000 unit 08/22/20 09:00 Ergocalciferol 50,000 Unit Cap PO Q14D RUPERTO Famotidine 20 mg 08/16/20 09:00 08/17/20 10:23 Famotidine 20 Mg Tab PO 20 mg DAILY RUPERTO Administration Fentanyl 1 patch 08/16/20 09:00 08/16/20 08:39 Fentanyl 25mcg/Hr Patch TRANSDERM 1 patch Q72H RUPERTO Administration Finasteride 5 mg 08/15/20 17:30 08/16/20 15:56 Finasteride 5 Mg Tab PO 5 mg W/SUPPER RUPERTO Administration Heparin Sodium (Porcine) 5,000 unit 08/16/20 09:00 08/17/20 10:24 Heparin Sodium,Porcine 5,000 Unit/Ml 1 Ml Vial SQ 5,000 unit Q12HR RUPERTO Administration Sodium Bicarbonate 150 ml/ 1,150 mls @ 100 mls/hr 08/15/20 15:45 08/17/20 09:49 Dextrose/Water IV 100 mls/hr .[id number] RUPERTO Administration Ampicillin Sodium/Sulbactam 50 mls @ 100 mls/hr 08/15/20 23:15 08/16/20 23:34 Sodium 1.5 gm/ Sodium Chloride IVPB Not Given Q24H [facility] Insulin Aspart 0 unit 08/17/20 07:30 08/17/20 06:29 Insulin Aspart (Novolog) 100 Unit/Ml Vial SQ 2 unit ACHS [facility] Administration Protocol Insulin Detemir 50 unit 08/16/20 07:00 08/17/20 06:30 Insulin Detemir (Levemir) 100 Unit/Ml Syr SQ 50 unit DAILY@0700 [facility] Administration Isosorbide Mononitrate 30 mg 08/16/20 09:00 08/17/20 10:23 Isosorbide Mononitrate Er 30 Mg Tab.Er.24h PO 30 mg DAILY RUPERTO Administration Levothyroxine Sodium 50 mcg 08/16/20 06:30 08/17/20 06:04 Levothyroxine 50 Mcg Tab PO 50 mcg 0630 RUPERTO Administration Loratadine 10 mg 08/16/20 09:00 08/17/20 10:23 Loratadine 10 Mg Tab PO 10 mg DAILY RUPERTO Administration Metoprolol Tartrate 25 mg 08/15/20 21:00 08/17/20 10:24 Metoprolol Tartrate 25 Mg Tab PO 25 mg BID RUPERTO Administration Naloxone HCl 0.2 mg 08/15/20 15:36 Naloxone 0.4 Mg/Ml 1 Ml Vial IV Q2M PRN Opioid Reversal Nitroglycerin 0.4 mg 08/15/20 15:38 Nitroglycerin Sl Tabs 0.4 Mg Tab SUBLINGUAL Q5M PRN Chest Pain Polyethylene Glycol 17 gm 08/16/20 09:00 08/17/20 10:25 Polyethylene Glycol 3350 17 Gm Powd.Pack PO 17 gm DAILY RUPERTO Administration Pregabalin 100 mg 08/15/20 21:00 08/17/20 10:25 Pregabalin 100 Mg Cap PO 100 mg BID RUPERTO Administration Ropinirole HCl 1 mg 08/15/20 21:00 08/17/20 10:22 Ropinirole Hcl 1 Mg Tab PO 1 mg BID RUPERTO Administration Silver Sulfadiazine 1 applic 08/15/20 23:15 08/17/20 10:36 Silver Sulfadiazine 1% Cream 25 Gm Tube TOPICAL Not Given BID RUPERTO Sodium Bicarbonate 650 mg 08/15/20 21:00 08/17/20 10:24 Sodium Bicarbonate Tab 650 Mg Tab PO 650 mg BID RUPERTO Administration Tamsulosin HCl 0.4 mg 08/16/20 09:00 08/17/20 10:23 Tamsulosin 0.4 Mg Cap.Er.24h PO 0.4 mg DAILY RUPERTO Administration Intake and Output 08/16/20 08/17/20 08/17/20 22:59 06:59 14:59 Intake Total 740 236 Output Total 400 900 Balance 340 -900 236 Intake: Intake, IV Titration 500 Amount Calcium Gluconate 1 gm In 100 Sodium Chloride 0.9% 100 ml @ 100 mls/hr IVPB ONCE ONE Rx#:[id number] Dextrose 5% in Water 1, 400 000 ml @ 100 mls/hr IV . [id number] RUPERTO with Sodium Bicarb (1 Meq/ml) 150 ml Rx#:[id number] Oral 240 236 Output: Urine 400 900 Other: Voiding Method Indwelling Catheter # Bowel Movements 1 Weight 109.5 kg 08/17/20 08:30 08/17/20 08:30 EKG Interpretations (text) Initial EKG shows a normal sinus rhythm with inferior Q waves. Subsequent EKG shows a normal sinus rhythm with inferior Q waves, ST depression in the lateral leads. Assessment and Plan Plan: Assessment and plan #1 severe hyperkalemia #2 acute kidney injury, patient had been taking Bactrim at home for a UTI which could've been contributing. Dialysis catheter placed yesterday #3 congestive heart failure, diastolic acute on chronic, most recent echo performed in 2018 showed an ejection fraction of 55-60% #4 urinary tract infection with sepsis #5 coronary artery disease, patient underwent a cardiac cath in 2018 which revealed OM and circumflex disease #6 Parkinson's #7 hypothyroidism #8 diabetes #9 hypertension #10 hyperlipidemia #11 episode of chest tightness, rule out acute coronary syndrome. EKG shows a normal sinus rhythm with lateral ST depression Plan We will obtain a repeat echocardiogram with Doppler study. We will also obtain a series of troponins. Continue baby aspirin, Lipitor 40, Plavix, metoprolol. We'll also request that a chest x-ray be performed. COVID testing is pending. DNP note has been reviewed, I agree with a documented findings and plan of care. Patient was seen and examined.
[2020-08-17 11:53] LABS: Glucose,Whole Blood 219 mg/dL (75-99)
--- NOTE | 2020-08-17 12:17 | PN ---
PROGRESS NOTE Patient is seen for followup for acute kidney injury and hyperkalemia. He was dialyzed yesterday and then again today, the patient currently has good urine output. He has an indwelling Stapleton catheter. Potassium has improved to 5.1. His serum creatinine is 3.3 from about 5.7 on initial admission. Previous creatinine has been about 2.5-2.6 mg/dL. PHYSICAL EXAMINATION: Today, patient is comfortable. Blood pressure 131/49, heart rate 75 per minute, he is afebrile. Examination of the heart S1, S2. Examination of the lungs, bilateral breath sounds are heard. Abdomen is soft, nontender. Examination of the lower extremities, trace edema bilaterally. [employer] exam grossly intact. LABS: Show sodium 135, potassium 5.1, BUN 70, creatinine 3.3. Troponin 0.07, hemoglobin 10.7 g/dL. ASSESSMENT: 1. Acute kidney injury secondary to hypotension, Bactrim, currently improved. Patient has good urine output. He had a treatment of hemodialysis yesterday and getting a second treatment today. We will hold off on dialysis following this treatment as he has good urine output and continue to monitor for continued renal recovery. 2. Hyperkalemia associated with acute kidney injury, metabolic acidosis, Bactrim, currently improved post dialysis. 3. History of urine retention, currently with Stapleton catheter being followed by Urology, maintained on Flomax. 4. CKD mineral bone disorder, currently on calcitriol. 5. Chronic kidney disease stage 3. Baseline creatinine 2-2.5 mg/dL secondary to nephrosclerosis. PLAN: Hold hemodialysis in a.m. Repeat labs in a.m. DC bicarb drip. Encourage increased oral intake. MMODL / IJN: [id number] /
[2020-08-17] MEDS ORDERED: ONDANSETRON 4 MG/2 ML VIAL IVP PRN (14:09)
[2020-08-17 17:19] LABS: Glucose,Whole Blood 159 mg/dL (75-99)
[2020-08-17] MEDS: FINASTERIDE 5 MG TAB PO SCH (17:30)
[2020-08-17] MEDS: ATORVASTATIN 40 MG TAB PO SCH (17:30)
[2020-08-17] MEDS: allopurinoL 100 MG TAB PO SCH (17:30)
[2020-08-17 20:21] LABS: Glucose,Whole Blood 104 mg/dL (75-99)
[2020-08-17] MEDS: CYCLOBENZAPRINE 10 MG TAB PO SCH (21:03)
[2020-08-18] MEDS: AMPICILLIN-SULBACTAM 1.5 GM in SODIUM CHLORIDE 0.9% 50 ML IVPB SCH ×2 (00:21→21:13)
[2020-08-18 03:05] LABS: Glucose,Whole Blood 107 mg/dL (75-99)
[2020-08-18 06:06] LABS: Glucose,Whole Blood 93 mg/dL (75-99)
[2020-08-18] MEDS: LEVOTHYROXINE 50 MCG TAB PO SCH (06:54)
[2020-08-18] MEDS: INSULIN ASPART (NovoLOG) 100 UNIT/ML VIAL SQ SCH ×4 (06:54→21:25)
[2020-08-18] MEDS: INSULIN DETEMIR (LEVEMIR) 100 UNIT/ML SYR SQ SCH (06:54)
[2020-08-18] MEDS: ALBUTEROL HFA INHALER INHALATION PRN ×4 (07:25→20:44)
[2020-08-18 09:10] LABS: Basophils % (A) 0 %; Eosinophils # (A) 0.4 k/uL (0-0.7); Eosinophils % (A) 7 %; Lymphocytes # (A) 1.4 k/uL (1.0-4.8); Lymphocytes % (A) 26 %; MCH 29.7 pg (25.0-35.0); MCHC 31.3 g/dL (31.0-37.0); MCV 94.8 fL (80.0-100.0); Mean Platelet Volume 9.6; Monocytes # (A) 0.3 k/uL (0-1.0); Monocytes % (A) 6 %; Neutrophils # (A) 3.3 k/uL (1.3-7.7); Neutrophils % (A) 60 %; RBC 3.38 m/uL (4.30-5.90); RDW 14.5 % (11.5-15.5); WBC 5.5 k/uL (3.8-10.6)
[2020-08-18] MEDS: FAMOTIDINE 20 MG TAB PO SCH (09:16)
[2020-08-18] MEDS: HEPARIN SODIUM,PORCINE 5,000 UNIT/ML 1 ML VIAL SQ SCH ×2 (09:16→20:53)
[2020-08-18] MEDS: CLOPIDOGREL 75 MG TAB PO SCH (09:16)
[2020-08-18] MEDS: ISOSORBIDE MONONITRATE ER 30 MG TAB.ER.24H PO SCH (09:16)
[2020-08-18] MEDS: CARBIDOPA-LEVODOPA 25-100 MG 1 EACH TAB PO SCH ×3 (09:16→21:13)
[2020-08-18] MEDS: ASPIRIN 81 MG PO SCH (09:17)
[2020-08-18] MEDS: DOCUSATE 100 MG CAP PO SCH (09:17)
[2020-08-18] MEDS: METOPROLOL TARTRATE 25 MG TAB PO SCH ×2 (09:17→20:54)
[2020-08-18] MEDS: PREGABALIN 100 MG CAP PO SCH ×2 (09:17→20:54)
[2020-08-18] MEDS: LORATADINE 10 MG TAB PO SCH (09:17)
[2020-08-18] MEDS: polyethylene glycoL 3350 17 GM POWD.PACK PO SCH (09:17)
[2020-08-18 09:19] LABS: Albumin 3.4 g/dL (3.5-5.0); Calcium 8.3 mg/dL (8.4-10.2); Potassium 5.5 mmol/L (3.5-5.1); Total Bilirubin 0.9 mg/dL (0.2-1.3)
[2020-08-18] MEDS: TAMSULOSIN 0.4 MG CAP.ER.24H PO SCH (09:19)
--- NOTE | 2020-08-18 10:00 | ECHOF ---
Referral Reason:chest pain MEASUREMENTS -------- HEIGHT: 182.9 cm WEIGHT: 109.3 kg BP: 124/67 RVIDd: 3.6 cm (< 3.3) IVSd: 1.4 cm (0.6 - 1.1) LVIDd: 4.5 cm (3.9 - 5.3) LVPWd: 1.3 cm (0.6 - 1.1) IVSs: 1.6 cm LVIDs: 3.2 cm LVPWs: 1.7 cm LA Diam: 3.4 cm (2.7 - 3.8) LAESV Index (A-L): 26.64 ml/m Ao Diam: 3.9 cm (2.0 - 3.7) AV Cusp: 2.1 cm (1.5 - 2.6) MV EXCURSION: 19.089 mm (> 18.000) MV EF SLOPE: 77 mm/s (70 - 150) EPSS: 1.1 cm MV E Andrae: 0.94 m/s MV DecT: 212 ms MV A Andrae: 0.68 m/s MV E/A Ratio: 1.38 AV maxP.59 mmHg AV meanP.26 mmHg AR PHT: 684 ms RAP: 15.00 mmHg RVSP: 40.96 mmHg FINDINGS -------- Resting bradycardia (HR<60bpm). This was a technically adequate study. The left ventricular size is normal. There is moderate concentric left ventricular hypertrophy. O verall left ventricular systolic function is normal with, an EF between 55 - 60 %. The right ventricle is normal in size. Normal LA size by volume 22+/-6 ml/m2. The right atrium is normal in size. Interatrial and interventricular septum intact. There is mild aortic valve sclerosis. There is mild aortic regurgitation. Peak/mean gradient acro ss the Aortic Valve is 11.59mmHg / 6.26mmHg. The mitral valve is normal. Mild tricuspid regurgitation present. There is mild pulmonary hypertension. The right ventricular systolic pressure, as measured by Doppler, is 40.96mmHg. The pulmonic valve was not well visualized. The aortic root is dilated measuring 3.9cm. The inferior vena cava is dilated with poor inspiratory collapse which is consistent with estimated r ight atrial pressure of 15 mmHg. There is no pericardial effusion. CONCLUSIONS -------- 1. The left ventricular size is normal. 2. There is moderate concentric left ventricular hypertrophy. 3. Overall left ventricular systolic function is normal with, an EF between 55 - 60 %. 4. There is mild aortic valve sclerosis. 5. There is mild aortic regurgitation. 6. Peak/mean gradient across the Aortic Valve is 11.59mmHg / 6.26mmHg. 7. Mild tricuspid regurgitation present. 8. There is mild pulmonary hypertension. 9. The right ventricular systolic pressure, as measured by Doppler, is 40.96mmHg. 10. The inferior vena cava is dilated with poor inspiratory collapse which is consistent with estimat ed right atrial pressure of 15 mmHg. 11. There is no pericardial effusion. CMS EXPERT: Inna Max RDCS
[2020-08-18 11:30] LABS: Platelet Count 87 k/uL (150-450); Poikilocytosis (M) Present
--- NOTE | 2020-08-18 11:41 | P.PN ---
Subjective Progress Note Date: 08/18/20 HISTORY OF PRESENT ILLNESS 85-year-old male one of my office patient with multiple medical problem was known to have history of chronic kidney disease, type 2 diabetes with multiple complication, severe lower back pain post surgery, history of gout atherosclerotic heart disease and severe BPH was known to have history of chronic pain syndrome who was in the hospital last time and [facility] in 03/12/2024 sepsis with right lower quadrant pain along with pyelonephritis with acute kidney failure feel to outpatient treatment management post IV antibiotics for. 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 Patient also known to have a chronic history of atherosclerotic heart disease with diastolic congestive heart failure has been on medication with good respond the management so far. Patient has been watch for outpatient management was started for UTI on Bactrim DS had a blood work done recently showed severe hyperkalemia with acute kidney injury with BUN of 134 creatinine 5.78 with potassium of 7.5 with peak T waves on EKG test. [facility] was started on sodium bicarbonate, D50 with insulin along with axillary to bring his potassium down repeat potassium level second time down to 6.0 blood sugar was mildly elevated patient still tested positive UA for infection patient will be hospitalized started on IV antibiotic continue hydration and consult nephrology while were holding diuretics and all nephrotoxic agent to improve the kidney function also renal ultrasound will be ordered for tomorrow morning. 08/16: Patient evaluated this morning. Noted to be resting in bedside chair, had complaints of mild hallucinations last night and today. Patient had a renal ultrasound this morning that showed indeterminate echogenic focus within the cortex of left kidney measuring 7 mm, cortical thinning, no hydronephrosis. Labs this morning reveal potassium 6.7 BUN 126 creatinine 5.34, kidney function and hyperkalemia did not improve from yesterday's labs. Nephrology and urology's consult appreciated. Patient will be going for a temporary dialysis catheter today with plans for urgent dialysis. 08/17: Patient had dialysis catheter placed into the right groin yesterday and received dialysis, plans for another round of dialysis today. Repeat labs today show sodium 135, potassium 5.1, BUN 70, creatinine 3.3. Urine culture was negative, blood cultures show no growth today. Vital signs are stable he's afeb rile 96.7, heart rate 71, retrograde 18, blood pressure 124/67, 91% on 2 L nasal cannula. 08/18: Patient noted to have some confusion which apparently the family has passed on he has been having issues with periodic confusion. Patient does state that his shortness of breath is improving. He underwent hemodialysis yesterday. Patient has Stapleton catheter in for urinary retention followed by urology. Patient is followed by cardiology. Repeat troponins reveal 0.070 and 0.074. Echocardiogram reveals EF of 55-60% with moderate concentric left hypertrophy, mild aortic valve sclerosis, mild aortic regurgitation. Mild tricuspid regurgitation, mild pulmonary hypertension. Cardiology recommends continuing baby aspirin, Lipitor Plavix and metoprolol. Patient has been afebrile, heart rate 63, blood pressure 105/56, pulse ox 94% on 2 L nasal cannula. quality assurance monitor final is a sinus rhythm. Repeat blood work reveals WBC 5.5, hemoglobin 10. Potassium 5.5, BUN 54 and creatinine 3.25. Urine culture reveals no growth and finalized. Discharge plan is for [facility] or [facility] for tomorro w. REVIEW OF SYSTEMS Constitutional: No fever, no chills, no night sweats. No weight change. Reports weakness, reports fatigue. EENT: No headache. No nasal drainage or congestion. No epistaxis. No sore throat. Lungs: No shortness of breath, cough, no sputum production. No wheezing. Cardiovascular: No chest pain, reports lower extremity edema. No palpitations. No paroxysmal nocturnal dyspnea. No orthopnea. No lightheadedness or dizziness. No syncopal episodes. Abdominal: No abdominal pain. No nausea, vomiting. No diarrhea. No constipation. No bloody or tarry stools. No loss of appetite. Genitourinary: No dysuria, increased frequency, urgency. No urinary retention. Musculoskeletal: No myalgias. No muscle weakness, no gait dysfunction, no frequent falls. No back pain. No neck pain. Integumentary: No wounds, no lesions. No rash or pruritus. No unusual bruising. Neurologic: No aphasia. No facial droop. Noted confusion, noted change in menta tion. No head injury. No headache. Psychiatric: No depression. No anxiety. Endocrine: No abnormal blood sugars. No weight change. PHYSICAL EXAMINATION Gen: This is an 85-year-old male. He is resting in bed and appears comfortable. No acute distress. HEENT: Head is atraumatic, normocephalic. Pupils equal, round. Sclerae is anicteric. NECK: Supple. No JVD. No lymphadenopathy. No thyromegaly. LUNGS: Few scattered rhonchi. No intercostal retractions. HEART: Regular rate and rhythm. No murmur. ABDOMEN: Soft. Bowel sounds are present. No masses. No tenderness. EXTREMITIES: 1 pedal edema. No calf tenderness. Ulcer right ankle. See nursing documentation for measurements. NEUROLOGICAL: Patient is awake, alert and oriented to person only. Confusion noted.. Cranial nerves 2 through 12 are grossly intact. ASSESSMENT AND PLAN 1 acute kidney injury most likely ATN and possibly secondary to medications specially Bactrim and hypotension with chronic stage III kidney disease. Patient has been started on hemodialysis. Nephrology consult appreciated. 2 severe hyperkalemia. Recheck in the morning. 3 reaction to medication most likely Bactrim DS take away the medication at this point continue hydration no need for any steroid use at this point. 4 acute on chronic diastolic congestive heart failure:. Continue dialysis, and metoprolol. Lasix and lisinopril on hold. 5 nonhealing ulcer with severe cellulitis of the lower extremity specially the right leg. Continue Unasyn. 6 urine tract infection with sepsis: Continue IV antibiotics. 7 severe neuropathy: Has been on Lyrica 100 mg twice a day. 8 atherosclerotic heart disease: Continue medical management no invasive procedure patient seen cardiology regularly. 9 Parkinson disease and tremor: Continue patient on Sinemet 3 times a day along with repeat a pro-. 10 chronic gout: Patient remain on allopurinol 100 mg a day. 11 BPH with neurogenic bladder secondary to radiation therapy with urinary retention requiring Stapleton catheter. Urology consult appreciated. Continue Flomax 0.4 mg daily and finasteride 5 mg in the evening. 12 Arrhythmia with Mild Tachycardia. Patient Remain on Metoprolol 25 Mg Twice a Day. 13 Hypothyroidism: Continue Levothyroxine at 50 g Daily. 14 Type 2 Diabetes on Insulin: Continue Patient on Long Acting Insulin with P lease Review 14 a Daily along with NovoLog per Sliding Scales Coverage. 15 GI Prophylaxis: Patient Will Be on Pepcid 20 Mg Daily. 16 DVT Prophylaxis: Patient Will Be on Heparin Subcutaneous. CODE STATUS: NO Code. DISCHARGE PLAN [facility] or [facility] for tomorrow. Impression and plan of care have been directed as dictated by the signing physician. Missy Douglas nurse practitioner acting as scribe for signing physician. Objective - Vital Signs Vital signs: Vital Signs Temp 97.9 F 08/17/20 20:00 Pulse 72 08/18/20 04:00 Resp 18 08/18/20 04:00 BP 128/80 08/18/20 04:00 Pulse Ox 93 L 08/18/20 04:00 Intake & Output 08/17/20 08/18/20 08/18/20 18:59 06:59 18:59 Intake Total 736 Output Total 1300 400 Balance -564 -400 Weight 121 kg Intake: IV 500 Dextrose 5% in Water 1, 500 000 ml @ 100 mls/hr IV . [id number] RUPERTO with Sodium Bicarb (1 Meq/ml) 150 ml Rx#:[id number] Oral 236 Output: Urine 1300 400 Hemodialysis 0 Other: Voiding Method Indwelling Catheter Indwelling Catheter - Labs CBC & Chem 7: 08/18/20 08:29 08/18/20 08:29 Labs: Abnormal Lab Results - Last 24 Hours (Table) 08/17/20 08/17/20 08/17/20 Range/Units 08:30 08:30 08:34 RBC 3.51 L (4.30-5.90) m/uL Hgb 10.7 L (13.0-17.5) gm/dL Hct 33.7 L (39.0-53.0) % Plt Count 122 L (150-450) k/uL Lymphocytes # 0.9 L (1.0-4.8) k/uL Sodium 135 L (137-145) mmol/L BUN 70 H (9-20) mg/dL Creatinine 3.31 H (0.66-1.25) mg/dL Glucose 174 H (74-99) mg/dL POC Glucose (mg/dL) (75-99) mg/dL Calcium 8.1 L (8.4-10.2) mg/dL Troponin I 0.070 H* (0.000-0.034) ng/mL 08/17/20 08/17/20 08/17/20 Range/Units 11:35 11:51 17:18 RBC (4.30-5.90) m/uL Hgb (13.0-17.5) gm/dL Hct (39.0-53.0) % Plt Count (150-450) k/uL Lymphocytes # (1.0-4.8) k/uL Sodium (137-145) mmol/L BUN (9-20) mg/dL Creatinine (0.66-1.25) mg/dL Glucose (74-99) mg/dL POC Glucose (mg/dL) 219 H 159 H (75-99) mg/dL Calcium (8.4-10.2) mg/dL Troponin I 0.074 H* (0.000-0.034) ng/mL 08/17/20 08/18/20 Range/Units 20:19 03:03 RBC (4.30-5.90) m/uL Hgb (13.0-17.5) gm/dL Hct (39.0-53.0) % Plt Count (150-450) k/uL Lymphocytes # (1.0-4.8) k/uL Sodium (137-145) mmol/L BUN (9-20) mg/dL Creatinine (0.66-1.25) mg/dL Glucose (74-99) mg/dL POC Glucose (mg/dL) 104 H 107 H (75-99) mg/dL Calcium (8.4-10.2) mg/dL Troponin I (0.000-0.034) ng/mL Microbiology - Last 24 Hours (Table) 08/15/20 15:22 Blood Culture - Preliminary Blood No Growth after 48 hours
[2020-08-18 11:51] LABS: Glucose,Whole Blood 72 mg/dL (75-99)
--- NOTE | 2020-08-18 12:57 | P.PN ---
Subjective Progress Note Date: 08/18/20 This is an 85-year-old gentleman with history of chronic kidney disease, diabetes, hypertension, hyperlipidemia, nicotine dependence, Parkinson's, hypothyroidism, who follows with Dr. Ybarra in the office. Patient also has a known history of coronary artery disease, in May 2018 the patient underwent a cardiac catheterization which revealed an atypical lesion involving the OM branch as well as the circumflex artery. Patient did not undergo intervention at that time because of renal function being elevated. He presents to the hospital on this occasion with symptoms of weakness, mild shortness of breath, [facility] found to be hypotensive. He also had outpatient lab work performed which revealed a significantly elevated potassium as well as abnormal renal function and patient was advised to come to the emergency room. While in the emergency room's transition to the cardiac unit patient did experience an episode of chest tightness which lasted about 15 minutes in duration. An EKG was performed at that time which showed a normal sinus rhythm with ST depression noted in the lateral leads. Last evening patient did have a dialysis catheter placed by Dr. Goodrich. The renal ultrasound was performed which was indeterminant, there was an echogenic focus noted in the left kidney no evidence of hydronephrosis. Blood pressure 134/70 with a heart rate is 70, 95% on 2 L of oxygen. White blood cell count 6.6, hemoglobin 10.9, platelet count 116, d-dimer 1.5, sodium 133, potassium 7.5, BUN 134 and creatinine 5.7, TSH 4.5 with a pro calcitonin of 0.15. These were admission labs, this mornings white blood cell count was 7.4, hemoglobin 10.4, platelet count 106. Sodium 132, potassium 5.3, BUN 126 and creatinine 5.3. The patient was seen and examined this morning, he still continues to feel quite weak, he does state that he feels better than he did on presentation here yesterday. He denies any chest discomfort today and his breathing is overall stable. 08/18/2020 Patient was seen and examined this morning, continues to have some intermittent confusion, he does feel that his breathing is improved as compared to his presentation here. He did undergo dialysis yesterday. Troponins came back at 0.07,.07,.07. Echocardiogram with Doppler study revealed an ejection fraction of 55-60% with moderate concentric LVH, mild aortic sclerosis, mild aortic regurgitation, mild tricuspid regurgitation and mild pulmonary hypertension. Patient denies any episodes of chest discomfort through the night or this morning. Hemodynamically he is stable. Remaining in a normal sinus rhythm. Blood cell count 5.5, hemoglobin 10.0, platelet count 87. Sodium 139, potassium 5.5, BUN 54, creatinine 3.2. Objective - Vital Signs Vital signs: Vital Signs Temp 96.9 F L 08/18/20 08:00 Pulse 65 08/18/20 11:51 Resp 16 08/18/20 11:51 BP 117/65 08/18/20 11:51 Pulse Ox 97 08/18/20 11:51 Intake & Output 08/17/20 08/18/20 08/18/20 18:59 06:59 18:59 Intake Total 736 200 Output Total 1300 400 Balance -564 -400 200 Weight 121 kg Intake: IV 500 Dextrose 5% in Water 1, 500 000 ml @ 100 mls/hr IV . [id number] RUPERTO with Sodium Bicarb (1 Meq/ml) 150 ml Rx#:[id number] Oral 236 200 Output: Urine 1300 400 Hemodialysis 0 Other: Voiding Method Indwelling Catheter Indwelling Catheter Indwelling Catheter - Exam PHYSICAL EXAMINATION: GENERAL: 85-year-old gentleman in no acute distress at the time of my examination HEENT: Head is atraumatic, normocephalic. Pupils equal, round. Sclera anicteric. Conjunctiva are clear. Mucous membranes of the mouth are moist. Neck is supple. There is elevated jugular venous pressure. No carotid bruit is heard. HEART EXAMINATION: Heart S1-S2 a systolic murmur is heard CHEST EXAMINATION: Lungs are clear with diminished air entry to the bases bilaterally . ABDOMEN: Soft, nontender. Bowel sounds are heard. No organomegaly noted. EXTREMITIES: 2+ peripheral pulses with 2+ evidence of peripheral edema and no calf tenderness noted. NEUROLOGIC patient is awake, alert and oriented 2 . - Labs CBC & Chem 7: 08/18/20 08:29 08/18/20 08:29 Labs: Abnormal Lab Results - Last 24 Hours (Table) 08/17/20 08/17/20 08/17/20 Range/Units 11:35 17:18 20:19 RBC (4.30-5.90) m/uL Hgb (13.0-17.5) gm/dL Hct (39.0-53.0) % Plt Count (150-450) k/uL Potassium (3.5-5.1) mmol/L Carbon Dioxide (22-30) mmol/L BUN (9-20) mg/dL Creatinine (0.66-1.25) mg/dL Glucose (74-99) mg/dL POC Glucose (mg/dL) 159 H 104 H (75-99) mg/dL Calcium (8.4-10.2) mg/dL Troponin I 0.074 H* (0.000-0.034) ng/mL Total Protein (6.3-8.2) g/dL Albumin (3.5-5.0) g/dL 08/18/20 08/18/20 08/18/20 Range/Units 03:03 08:29 08:29 RBC 3.38 L (4.30-5.90) m/uL Hgb 10.0 L (13.0-17.5) gm/dL Hct 32.0 L (39.0-53.0) % Plt Count 87 L (150-450) k/uL Potassium 5.5 H (3.5-5.1) mmol/L Carbon Dioxide 35 H (22-30) mmol/L BUN 54 H (9-20) mg/dL Creatinine 3.25 H (0.66-1.25) mg/dL Glucose 72 L (74-99) mg/dL POC Glucose (mg/dL) 107 H (75-99) mg/dL Calcium 8.3 L (8.4-10.2) mg/dL Troponin I (0.000-0.034) ng/mL Total Protein 6.0 L (6.3-8.2) g/dL Albumin 3.4 L (3.5-5.0) g/dL 08/18/20 Range/Units 11:40 RBC (4.30-5.90) m/uL Hgb (13.0-17.5) gm/dL Hct (39.0-53.0) % Plt Count (150-450) k/uL Potassium (3.5-5.1) mmol/L Carbon Dioxide (22-30) mmol/L BUN (9-20) mg/dL Creatinine (0.66-1.25) mg/dL Glucose (74-99) mg/dL POC Glucose (mg/dL) 72 L (75-99) mg/dL Calcium (8.4-10.2) mg/dL Troponin I (0.000-0.034) ng/mL Total Protein (6.3-8.2) g/dL Albumin (3.5-5.0) g/dL Microbiology - Last 24 Hours (Table) 08/15/20 15:22 Blood Culture - Preliminary Blood No Growth after 48 hours Assessment and Plan Plan: Assessment and plan #1 severe hyperkalemia #2 acute kidney injury, patient had been taking Bactrim at home for a UTI which could've been contributing. Dialysis catheter placed yesterday #3 congestive heart failure, diastolic acute on chronic, most recent echo performed in 2018 showed an ejection fraction of 55-60% #4 urinary tract infection with sepsis #5 coronary artery disease, patient underwent a cardiac cath in 2018 which revealed OM and circumflex disease #6 Parkinson's #7 hypothyroidism #8 diabetes #9 hypertension #10 hyperlipidemia #11 episode of chest tightness, rule out acute coronary syndrome. EKG shows a normal sinus rhythm with lateral ST depression. Troponins, did not reveal any significant rise or fall pattern, not indicative of acute coronary syndrome. Plan Radiology's perspective, we'll recommend to continue the patient on his current medications. Once stable for discharge we would recommend he follow-up in the office 2 weeks post discharge. DNP note has been reviewed, I agree with a documented findings and plan of care. Patient was seen and examined.
[2020-08-18] MEDS ORDERED: FUROSEMIDE 10 MG/ML 4 ML VIAL IV STA (15:02)
--- NOTE | 2020-08-18 15:06 | P.PN ---
Subjective Patient is seen in follow-up for acute kidney injury on chronic kidney disease. Last hemodialysis August 18. Creatinine 3.25 today. Potassium level 5.5. Urine output 700 mL overnight. He is off IV fluids. Oral intake is good. No vomiting or diarrhea. No chest pain or shortness of breath. Vital signs are stable. General: The patient appeared well nourished and normally developed. HEENT: Head exam is unremarkable. Neck is without jugular venous distension. LUNGS: Breath sounds decreased. HEART: Rate and Rhythm are regular. ABDOMEN: Soft, nontender. EXTREMITITES: No edema. Objective - Vital Signs Vital signs: Vital Signs Temp 96.9 F L 08/18/20 08:00 Pulse 65 08/18/20 11:51 Resp 16 08/18/20 11:51 BP 117/65 08/18/20 11:51 Pulse Ox 97 08/18/20 11:51 Intake & Output 08/17/20 08/18/20 08/18/20 18:59 06:59 18:59 Intake Total 736 200 Output Total 1300 400 Balance -564 -400 200 Weight 121 kg Intake: IV 500 Dextrose 5% in Water 1, 500 000 ml @ 100 mls/hr IV . [id number] RUPERTO with Sodium Bicarb (1 Meq/ml) 150 ml Rx#:[id number] Oral 236 200 Output: Urine 1300 400 Hemodialysis 0 Other: Voiding Method Indwelling Catheter Indwelling Catheter Indwelling Catheter - Labs CBC & Chem 7: 08/18/20 08:29 08/18/20 08:29 Labs: Abnormal Lab Results - Last 24 Hours (Table) 08/17/20 08/17/20 08/18/20 Range/Units 17:18 20:19 03:03 RBC (4.30-5.90) m/uL Hgb (13.0-17.5) gm/dL Hct (39.0-53.0) % Plt Count (150-450) k/uL Potassium (3.5-5.1) mmol/L Carbon Dioxide (22-30) mmol/L BUN (9-20) mg/dL Creatinine (0.66-1.25) mg/dL Glucose (74-99) mg/dL POC Glucose (mg/dL) 159 H 104 H 107 H (75-99) mg/dL Calcium (8.4-10.2) mg/dL Total Protein (6.3-8.2) g/dL Albumin (3.5-5.0) g/dL 08/18/20 08/18/20 08/18/20 Range/Units 08:29 08:29 11:40 RBC 3.38 L (4.30-5.90) m/uL Hgb 10.0 L (13.0-17.5) gm/dL Hct 32.0 L (39.0-53.0) % Plt Count 87 L (150-450) k/uL Potassium 5.5 H (3.5-5.1) mmol/L Carbon Dioxide 35 H (22-30) mmol/L BUN 54 H (9-20) mg/dL Creatinine 3.25 H (0.66-1.25) mg/dL Glucose 72 L (74-99) mg/dL POC Glucose (mg/dL) 72 L (75-99) mg/dL Calcium 8.3 L (8.4-10.2) mg/dL Total Protein 6.0 L (6.3-8.2) g/dL Albumin 3.4 L (3.5-5.0) g/dL Microbiology - Last 24 Hours (Table) 08/15/20 15:22 Blood Culture - Preliminary Blood No Growth after 48 hours Assessment and Plan Plan: Assessment: 1. Acute kidney injury secondary to ATN secondary to hypotension and Bactrim. Creatinine 5.76 on admission and is 3.25 today. No hydronephrosis noted on kidney ultrasound. No proteinuria on UA. Status post 2 treatments of hemodialysis. Last treatment on August 17. 2. Hyperkalemia secondary to acute kidney injury, metabolic acidosis and Bactrim. Improved postdialysis. 3. Metabolic acidosis secondary to acute kidney injury. Status post bicarb drip. 4. Chronic kidney disease stage III with baseline creatinine in the range of 2- 2.5 secondary to nephrosclerosis. 5. Diabetes mellitus. 6. History of urinary retention. Currently has Stapleton catheter. Urology following. Maintained on Flomax. 7. Recent UTI. Was taking Bactrim outpatient. 8. Chronic kidney disease mineral bone disease maintained on calcitriol. Plan: Remains off IV fluids. Hold hemodialysis today. Lasix 40 mg IV once today. Low potassium diet. Repeat potassium level this evening. Continue to monitor renal function and urine output. Continue to assess daily for need for renal placement therapy.
[2020-08-18] MEDS: ATORVASTATIN 40 MG TAB PO SCH (15:22)
[2020-08-18] MEDS: FINASTERIDE 5 MG TAB PO SCH (15:22)
[2020-08-18] MEDS: allopurinoL 100 MG TAB PO SCH (15:22)
[2020-08-18 16:51] LABS: Glucose,Whole Blood 87 mg/dL (75-99)
[2020-08-18 20:01] LABS: Glucose,Whole Blood 117 mg/dL (75-99)
[2020-08-18] MEDS ORDERED: SODIUM BICARB 8.4% 50 ML SYR (1 MEQ/ML) IV STA (20:19)
[2020-08-18] MEDS ORDERED: DEXTROSE 50% SYRINGE 50 ML IVP STA (20:19)
[2020-08-18] MEDS ORDERED: INSULIN REGULAR 100 UNIT/ML VIAL IV ONE (20:30)
[2020-08-18] MEDS: CYCLOBENZAPRINE 10 MG TAB PO SCH (20:54)
[2020-08-19 00:46] LABS: Calcium 8.3 mg/dL (8.4-10.2); Potassium 5.1 mmol/L (3.5-5.1)
[2020-08-19 02:54] LABS: Glucose,Whole Blood 81 mg/dL (75-99)
[2020-08-19 06:17] LABS: Glucose,Whole Blood 50 mg/dL (75-99)
[2020-08-19 06:45] LABS: Glucose,Whole Blood 57 mg/dL (75-99)
[2020-08-19] MEDS: LEVOTHYROXINE 50 MCG TAB PO SCH (06:47)
[2020-08-19] MEDS: INSULIN ASPART (NovoLOG) 100 UNIT/ML VIAL SQ SCH ×4 (06:47→22:04)
[2020-08-19 06:59] LABS: Glucose,Whole Blood 97 mg/dL (75-99)
[2020-08-19] MEDS: INSULIN DETEMIR (LEVEMIR) 100 UNIT/ML SYR SQ SCH (07:03)
[2020-08-19] MEDS: ALBUTEROL HFA INHALER INHALATION PRN ×3 (07:20→15:12)
[2020-08-19 08:53] LABS: Basophils # (A) 0.1 k/uL (0-0.2); Basophils % (A) 1 %; Eosinophils # (A) 0.5 k/uL (0-0.7); Eosinophils % (A) 8 %; HCT 34.7 % (39.0-53.0); HGB 11.1 gm/dL (13.0-17.5); Hypochromasia Slight; Lymphocytes # (A) 1.6 k/uL (1.0-4.8); Lymphocytes % (A) 24 %; MCH 30.6 pg (25.0-35.0); MCV 95.6 fL (80.0-100.0); Monocytes # (A) 0.4 k/uL (0-1.0); Monocytes % (A) 6 %; Neutrophils # (A) 3.9 k/uL (1.3-7.7); Neutrophils % (A) 59 %; Platelet Count 100 k/uL (150-450); RBC 3.63 m/uL (4.30-5.90); RDW 14.2 % (11.5-15.5); WBC 6.5 k/uL (3.8-10.6)
[2020-08-19] MEDS: LORATADINE 10 MG TAB PO SCH (08:56)
[2020-08-19] MEDS: METOPROLOL TARTRATE 25 MG TAB PO SCH ×2 (08:56→21:32)
[2020-08-19] MEDS: ISOSORBIDE MONONITRATE ER 30 MG TAB.ER.24H PO SCH (08:56)
[2020-08-19] MEDS: HEPARIN SODIUM,PORCINE 5,000 UNIT/ML 1 ML VIAL SQ SCH ×2 (08:56→21:32)
[2020-08-19] MEDS: DOCUSATE 100 MG CAP PO SCH (08:56)
[2020-08-19] MEDS: CARBIDOPA-LEVODOPA 25-100 MG 1 EACH TAB PO SCH ×3 (08:56→21:32)
[2020-08-19] MEDS: FAMOTIDINE 20 MG TAB PO SCH (08:56)
[2020-08-19] MEDS: ASPIRIN 81 MG PO SCH (08:56)
[2020-08-19] MEDS: CLOPIDOGREL 75 MG TAB PO SCH (08:56)
[2020-08-19] MEDS: PREGABALIN 100 MG CAP PO SCH ×2 (08:57→21:32)
[2020-08-19] MEDS: polyethylene glycoL 3350 17 GM POWD.PACK PO SCH (08:57)
--- NOTE | 2020-08-19 08:57 | P.DS ---
Providers Date of admission: 08/15/20 15:36 Expected date of discharge: 08/22/20 Attending physician: Dejan Adkins Consults: 08/15/20 22:28 Consult Physician Urgent Consulting Provider: Ho Gonzales Consult Reason/Comments: Renal Falure Do you want consulting provider notified?: Already Contacted 08/15/20 23:11 Consult Physician Routine Consulting Provider: Chino Mar Consult Reason/Comments: UTI with stone and recurrent infection. Do you want consulting provider notified?: Yes Consult Physician Routine Consulting Provider: Carmen Diaz Consult Reason/Comments: ANNMARIE Do you want consulting provider notified?: Yes 08/16/20 09:19 Consult Physician Urgent Consulting Provider: Jonathan Goodrich Consult Reason/Comments: temp dialysis catheter Do you want consulting provider notified?: Yes 08/16/20 11:52 Consult Physician Urgent Consulting Provider: Demetris Negro Consult Reason/Comments: chest pain, ST depression Do you want consulting provider notified?: Yes Primary care physician: Dejan Adkins [facility] Course: HISTORY OF PRESENT ILLNESS 85-year-old male one of my office patient with multiple medical problem was known to have history of chronic kidney disease, type 2 diabetes with multiple complication, severe lower back pain post surgery, history of gout atherosclerotic heart disease and severe BPH was known to have history of chronic pain syndrome who was in the hospital last time and [facility] in 03/12/2024 sepsis with right lower quadrant pain along with pyelonephritis with acute kidney failure feel to outpatient treatment management post IV antibiotics for. 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 Patient also known to have a chronic history of atherosclerotic heart disease with diastolic congestive heart failure has been on medication with good respond the management so far. Patient has been watch for outpatient management was started for UTI on Bactrim DS had a blood work done recently showed severe hyperkalemia with acute kidney injury with BUN of 134 creatinine 5.78 with potassium of 7.5 with peak T waves on EKG test. Patient was seen and evaluated the demurs department was started on sodium bicarbonate, D50 with insulin along with axillary to bring his potassium down repeat potassium level second time down to 6.0 blood sugar was mildly elevated patient still tested positive UA for infection patient will be hospitalized started on IV antibiotic continue hydration and consult nephrology while were holding diuretics and all nephrotoxic agent to improve the kidney function also renal ultrasound will be ordered for tomorrow morning. 08/16: Patient evaluated this morning. Noted to be resting in bedside chair, had complaints of mild hallucinations last night and today. Patient had a renal ultrasound this morning that showed indeterminate echogenic focus within the cortex of left kidney measuring 7 mm, cortical thinning, no hydronephrosis. Labs this morning reveal potassium 6.7 BUN 126 creatinine 5.34, kidney function and hyperkalemia did not improve from yesterday's labs. Nephrology and urology's consult appreciated. Patient will be going for a temporary dialysis catheter today with plans for urgent dialysis. 08/17: Patient had dialysis catheter placed into the right groin yesterday and received dialysis, plans for another round of dialysis today. Repeat labs today show sodium 135, potassium 5.1, BUN 70, creatinine 3.3. Urine culture was negative, blood cultures show no growth today. Vital signs are stable he's afebrile 96.7, heart rate 71, retrograde 18, blood pressure 124/67, 91% on 2 L nasal cannula. 08/18: Patient noted to have some confusion which apparently the family has passed on he has been having issues with periodic confusion. Patient does state that his shortness of breath is improving. He underwent hemodialysis yesterday. Patient has Stapleton catheter in for urinary retention followed by urology. Patient is followed by cardiology. Repeat troponins reveal 0.070 and 0.074. Echocardiogram reveals EF of 55-60% with moderate concentric left hypertrophy, mild aortic valve sclerosis, mild aortic regurgitation. Mild tricuspid regurgitation, mild pulmonary hypertension. Cardiology recommends continuing baby aspirin, Lipitor Plavix and metoprolol. Patient has been afebrile, heart rate 63, blood pressure 105/56, pulse ox 94% on 2 L nasal cannula. bus monitor is a sinus rhythm. Repeat blood work reveals WBC 5.5, hemoglobin 10. Potassium 5.5, BUN 54 and creatinine 3.25. Urine culture reveals no growth and finalized. Discharge plan is for [facility] or [facility] for tomorrow. 08/19: Patient still has some mild confusion. Potassium last night was 5.9 and he is status post dextrose and regular insulin, bicarb. Repeat lab work reveals creatinine of 2.69 potassium 5.3. He has been eating well with no nausea or vomiting. No diarrhea. He has had urine output and Stapleton were maintained in place. Dr. Gonzales is requesting the patient stay overnight and if he continues to improve, remove dialysis catheter tomorrow and plan for discharge. bus monitor has been sinus rhythm. Patient is reaching 1000 on incentive spirometry. Mental status is improved at the moment but intermittent confusion has continued. Patient is refusing to go to subacute rehab. Therapies have reevaluated patient today and he did very well with recommendations for home with homecare. Patient's is okay with him coming home and social work will set up home care with anticipation of possible discharge tomorrow. 08/20: Patient is doing slightly better still mildly confused but improved from before, his physical therapy done much better, slight increase in his potassium today patient will require to go back on dialysis. Will delay his discharge until tomorrow continue dialysis today see if his dialysis line need to be switched to right IJ. Otherwise will possibly send patient home tomorrow to keep doing dialysis as an outpatient. 08/21: Patient is still refuses to go to subacute rehab family are willing to ta ke him home his potassium was still elevated yesterday and will require hemodialysis tomorrow. Patient is very drowsy after his procedure today to move his dialysis catheter to prevent catheter in the IJ at the right side which was done today with Dr. Goodrich nephrology at seen patient and planning to do hemodialysis tomorrow morning for his discharge. 08/22: Patient had dialysis catheter changed to right IJ yesterday and he is scheduled for hemodialysis today. Plan is for discharge home and continue on long-term dialysis treatment. Repeat chest x-ray shows chronic changes only. He has been afebrile, heart rate 85, blood pressure 134/72, pulse ox 94% on room air. Patient has significant weakness and would benefit with wheelchair at home and would help him complete his ADLs and maintain independence. Plan is for him to return home with his . administrative assistant office manager is arranging for dialysis treatment outpatient. Patient will be discharged home today once all arrangements have been completed. ASSESSMENT AND PLAN 1 acute kidney injury most likely ATN and possibly secondary to medications specially Bactrim and hypotension with chronic stage III kidney disease. 2 severe hyperkalemia. 3 reaction to medication most likely Bactrim DS 4 acute on chronic diastolic congestive heart failure 5 nonhealing ulcer with severe cellulitis of the lower extremity specially the right leg. 6 urine tract infection with sepsis 7 severe neuropathy 8 atherosclerotic heart disease 9 Parkinson disease and tremor 10 chronic gout 11 BPH with neurogenic bladder secondary to radiation therapy with urinary retention requiring Stapleton catheter. 12 Arrhythmia with Mild Tachycardia. 13 Hypothyroidism 14 Type 2 Diabetes on Insulin DISCHARGE PLAN Home with [facility] home[facility] Impression and plan of care have been directed as dictated by the signing physician. Missy Douglas nurse practitioner acting as scribe for signing physician. Patient Condition at Discharge: Good Plan - Discharge Summary Discharge Rx Participant: No New Discharge Prescriptions: New fentaNYL 25MCG/HR PATCH [Duragesic 25MCG/HR] 1 patch TRANSDERM Q72H #1 patch Insulin Detemir (Levemir) [Levemir] 50 unit SQ DAILY@0700 syr INSULIN ASPART (NovoLOG) [NovoLOG (formulary)] 0 unit SQ ACHS vial Clopidogrel [Plavix] 75 mg PO DAILY tab Cefuroxime [Ceftin] 250 mg PO BID 7 Days #14 tab Furosemide [Lasix] 20 mg PO DAILY #30 tab Calcium Acetate [PhosLo] 667 mg PO BID-W/MEALS #60 tab Continue Cyclobenzaprine [Flexeril] 10 mg PO HS allopurinoL [Zyloprim] 100 mg PO W/SUPPER Cetirizine HCl [Zyrtec] 10 mg PO DAILY Tamsulosin HCl [Flomax] 0.4 mg PO PC-BRKFST Metoprolol Tartrate [Lopressor] 25 mg PO BID-W/MEALS Finasteride [Proscar] 5 mg PO W/SUPPER Isosorbide Mononitrate ER [Imdur] 30 mg PO DAILY #30 tab.er.24h Nitroglycerin Sl Tabs [Nitrostat] 0.4 mg SUBLINGUAL Q5M PRN #25 tab PRN Reason: Chest Pain Ergocalciferol [Vitamin D2 (DRISDOL)] 50,000 unit PO Q14D Aspirin 81 mg PO DAILY Atorvastatin [Lipitor] 40 mg PO W/SUPPER Carbidopa-Levodopa 25-100 mg [Sinemet 25-100 mg] 1 tab PO TID polyethylene glycoL 3350 [Miralax] 17 gm PO DAILY #0 powd.pack calcitrioL [Rocaltrol] 0.25 mg PO OLSON Levothyroxine Sodium [Synthroid] 50 mcg PO DAILY Albuterol Sulfate [Proair Hfa] 2 puff INHALATION Q4H PRN PRN Reason: Shortness Of Breath rOPINIRole HCL [Requip] 1 mg PO BID SILVER sulfADIAZINE CREAM [Silvadene Cream] 1 applic TOPICAL DAILY Docusate [Colace] 100 mg PO DAILY Pregabalin [Lyrica] 100 mg PO BID #6 cap Changed Hydrocodone/Acetaminophen [[place] 10-325] 1 - 2 tab PO Q4HR PRN #18 tab PRN Reason: Pain Discontinued Insulin Glargine,Hum.rec.anlog [Toujeo Solostar] 40 units SQ DAILY Furosemide [Lasix] 40 mg PO BID@0900,1600 tab Sulfamethox-Tmp 800-160Mg [Bactrim DS 800-160 mg] 1 tab PO Q12HR lisinopriL [Zestril] 2.5 mg PO W/SUPPER INSULIN ASPART (NovoLOG) [NovoLOG (formulary)] See Protocol SQ AC-TID Discharge Medication List Cyclobenzaprine [Flexeril] 10 mg PO HS 06/02/16 [History] allopurinoL [Zyloprim] 100 mg PO W/SUPPER 06/02/16 [History] Cetirizine HCl [Zyrtec] 10 mg PO DAILY 05/26/18 [History] Finasteride [Proscar] 5 mg PO W/SUPPER 05/26/18 [History] Metoprolol Tartrate [Lopressor] 25 mg PO BID-W/MEALS 05/26/18 [History] Tamsulosin HCl [Flomax] 0.4 mg PO PC-BRKFST 05/26/18 [History] Isosorbide Mononitrate ER [Imdur] 30 mg PO DAILY #30 tab.er.24h 06/04/18 [Rx] Nitroglycerin Sl Tabs [Nitrostat] 0.4 mg SUBLINGUAL Q5M PRN #25 tab 06/04/18 [Rx] Aspirin 81 mg PO DAILY 07/18/19 [History] Atorvastatin [Lipitor] 40 mg PO W/SUPPER 07/18/19 [History] Carbidopa-Levodopa 25-100 mg [Sinemet 25-100 mg] 1 tab PO TID 07/18/19 [History] Ergocalciferol [Vitamin D2 (DRISDOL)] 50,000 unit PO Q14D 07/18/19 [History] polyethylene glycoL 3350 [Miralax] 17 gm PO DAILY #0 powd.pack 07/21/19 [Rx] calcitrioL [Rocaltrol] 0.25 mg PO OLSON 09/28/19 [History] Albuterol Sulfate [Proair Hfa] 2 puff INHALATION Q4H PRN 08/15/20 [History] Docusate [Colace] 100 mg PO DAILY 08/15/20 [History] Levothyroxine Sodium [Synthroid] 50 mcg PO DAILY 08/15/20 [History] SILVER sulfADIAZINE CREAM [Silvadene Cream] 1 applic TOPICAL DAILY 08/15/20 [History] rOPINIRole HCL [Requip] 1 mg PO BID 08/15/20 [History] Cefuroxime [Ceftin] 250 mg PO BID 7 Days #14 tab 08/19/20 [Rx] Clopidogrel [Plavix] 75 mg PO DAILY tab 08/19/20 [Rx] Hydrocodone/Acetaminophen [[place] 10-325] 1 - 2 tab PO Q4HR PRN #18 tab 08/19/20 [Rx] INSULIN ASPART (NovoLOG) [NovoLOG (formulary)] 0 unit SQ ACHS vial 08/19/20 [Rx] Insulin Detemir (Levemir) [Levemir] 50 unit SQ DAILY@0700 syr 08/19/20 [Rx] Pregabalin [Lyrica] 100 mg PO BID #6 cap 08/19/20 [Rx] fentaNYL 25MCG/HR PATCH [Duragesic 25MCG/HR] 1 patch TRANSDERM Q72H #1 patch 08/19/20 [Rx] Calcium Acetate [PhosLo] 667 mg PO BID-W/MEALS #60 tab 08/22/20 [Rx] Furosemide [Lasix] 20 mg PO DAILY #30 tab 08/22/20 [Rx] Follow up Appointment(s)/Referral(s): Dejan Adkins MD [Primary Care Provider] - 1 Week (at [facility]) Artis Ybarra MD [STAFF PHYSICIAN] - 1 Week Ho Gonzales DO [STAFF PHYSICIAN] - 2 Weeks Discharge Disposition: HOME WITH HOME HEALTH SERVICES
[2020-08-19 09:07] LABS: Albumin 3.7 g/dL (3.5-5.0); Calcium 8.4 mg/dL (8.4-10.2); Magnesium 1.9 mg/dL (1.6-2.3); Phosphorus 5.9 mg/dL (2.5-4.5); Potassium 5.3 mmol/L (3.5-5.1); Total Bilirubin 0.8 mg/dL (0.2-1.3); Total Protein 6.6 g/dL (6.3-8.2)
[2020-08-19] MEDS: AMPICILLIN-SULBACTAM 1.5 GM in SODIUM CHLORIDE 0.9% 50 ML IVPB SCH ×2 (09:55→22:04)
[2020-08-19] MEDS: TAMSULOSIN 0.4 MG CAP.ER.24H PO SCH (09:55)
[2020-08-19 12:02] LABS: Glucose,Whole Blood 182 mg/dL (75-99)
--- NOTE | 2020-08-19 12:45 | P.PN ---
Subjective Patient is seen in follow-up for acute kidney injury on chronic kidney disease. Last hemodialysis August 17. Creatinine 3.69 today. Potassium level 5.3. Nonoliguric. He is off IV fluids. Oral intake is good. No vomiting or diarrhea. No chest pain or shortness of breath. Vital signs are stable. General: The patient appeared well nourished and normally developed. HEENT: Head exam is unremarkable. Neck is without jugular venous distension. LUNGS: Breath sounds decreased. HEART: Rate and Rhythm are regular. ABDOMEN: Soft, nontender. EXTREMITITES: Trace edema. Objective - Vital Signs Vital signs: Vital Signs Temp 97.8 F 08/19/20 11:51 Pulse 72 08/19/20 11:52 Resp 16 08/19/20 11:51 BP 140/63 08/19/20 11:51 Pulse Ox 96 08/19/20 11:51 Intake & Output 08/18/20 08/19/20 08/19/20 18:59 06:59 18:59 Intake Total 440 180 Output Total 1000 300 Balance 440 -1000 -120 Weight 120.8 kg Intake: Oral 440 180 Output: Urine 1000 300 Other: Voiding Method Indwelling Catheter Indwelling Catheter Indwelling Catheter - Labs CBC & Chem 7: 08/19/20 07:52 08/19/20 07:52 Labs: Abnormal Lab Results - Last 24 Hours (Table) 08/18/20 08/18/20 08/19/20 Range/Units 18:58 19:59 00:08 RBC (4.30-5.90) m/uL Hgb (13.0-17.5) gm/dL Hct (39.0-53.0) % Plt Count (150-450) k/uL Potassium 5.9 H (3.5-5.1) mmol/L Carbon Dioxide (22-30) mmol/L BUN 64 H (9-20) mg/dL Creatinine 3.80 H (0.66-1.25) mg/dL Glucose (74-99) mg/dL POC Glucose (mg/dL) 117 H (75-99) mg/dL Calcium 8.3 L (8.4-10.2) mg/dL Phosphorus (2.5-4.5) mg/dL 08/19/20 08/19/20 08/19/20 Range/Units 06:12 06:34 07:52 RBC 3.63 L (4.30-5.90) m/uL Hgb 11.1 L (13.0-17.5) gm/dL Hct 34.7 L (39.0-53.0) % Plt Count 100 L (150-450) k/uL Potassium (3.5-5.1) mmol/L Carbon Dioxide (22-30) mmol/L BUN (9-20) mg/dL Creatinine (0.66-1.25) mg/dL Glucose (74-99) mg/dL POC Glucose (mg/dL) 50 L 57 L (75-99) mg/dL Calcium (8.4-10.2) mg/dL Phosphorus (2.5-4.5) mg/dL 08/19/20 08/19/20 Range/Units 07:52 11:59 RBC (4.30-5.90) m/uL Hgb (13.0-17.5) gm/dL Hct (39.0-53.0) % Plt Count (150-450) k/uL Potassium 5.3 H (3.5-5.1) mmol/L Carbon Dioxide 31 H (22-30) mmol/L BUN 65 H (9-20) mg/dL Creatinine 3.69 H (0.66-1.25) mg/dL Glucose 147 H (74-99) mg/dL POC Glucose (mg/dL) 182 H (75-99) mg/dL Calcium (8.4-10.2) mg/dL Phosphorus 5.9 H (2.5-4.5) mg/dL Microbiology - Last 24 Hours (Table) 08/15/20 15:22 Blood Culture - Preliminary Blood No Growth after 72 hours Assessment and Plan Plan: Assessment: 1. Acute kidney injury secondary to ATN secondary to hypotension and Bactrim. Creatinine 5.76 on admission and is 3.69 today. No hydronephrosis noted on kidney ultrasound. No proteinuria on UA. Status post 2 treatments of hemodialysis. Last treatment on August 17. 2. Hyperkalemia secondary to acute kidney injury, metabolic acidosis and Bactrim. Improved postdialysis. 3. Metabolic acidosis secondary to acute kidney injury. Status post bicarb drip. 4. Chronic kidney disease stage III with baseline creatinine in the range of 2- 2.5 secondary to nephrosclerosis. 5. Diabetes mellitus. 6. History of urinary retention. Currently has Stapleton catheter. Urology following. Maintained on Flomax. 7. Recent UTI. Was taking Bactrim outpatient. 8. Chronic kidney disease mineral bone disease maintained on calcitriol. Phosphorus 5.9. Plan: Remains off IV fluids. Hold hemodialysis again today. Low potassium diet. Add PhosLo with meals. Add Lasix 20 mg once daily Repeat potassium level this evening. Continue to monitor renal function and urine output. Continue to assess daily for need for renal placement therapy. If renal function stable and potassium normal, can discontinue dialysis catheter and monitor closely outpatient.
[2020-08-19] MEDS: FUROSEMIDE 20 MG TAB PO SCH (12:57)
--- NOTE | 2020-08-19 13:01 | P.PN ---
Subjective Progress Note Date: 08/19/20 HISTORY OF PRESENT ILLNESS 85-year-old male one of my office patient with multiple medical problem was known to have history of chronic kidney disease, type 2 diabetes with multiple complication, severe lower back pain post surgery, history of gout atherosclerotic heart disease and severe BPH was known to have history of chronic pain syndrome who was in the hospital last time and [facility] in 03/12/2024 sepsis with right lower quadrant pain along with pyelonephritis with acute kidney failure feel to outpatient treatment management post IV antibiotics for. 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 Patient also known to have a chronic history of atherosclerotic heart disease with diastolic congestive heart failure has been on medication with good respond the management so far. Patient has been watch for outpatient management was started for UTI on Bactrim DS had a blood work done recently showed severe hyperkalemia with acute kidney injury with BUN of 134 creatinine 5.78 with potassium of 7.5 with peak T waves on EKG test. [facility] started on sodium bicarbonate, D50 with insulin along with axillary to bring his potassium down repeat potassium level second time down to 6.0 blood sugar was mildly elevated patient still tested positive UA for infection patient will be hospitalized started on IV antibiotic continue hydration and consult nephrology while were holding diuretics and all nephrotoxic agent to improve the kidney function also renal ultrasound will be ordered for tomorrow morning. 08/16: Patient evaluated this morning. Noted to be resting in bedside chair, had complaints of mild hallucinations last night and today. Patient had a renal ultrasound this morning that showed indeterminate echogenic focus within the cortex of left kidney measuring 7 mm, cortical thinning, no hydronephrosis. Labs this morning reveal potassium 6.7 BUN 126 creatinine 5.34, kidney function and hyperkalemia did not improve from yesterday's labs. Nephrology and urology's consult appreciated. Patient will be going for a temporary dialysis catheter today with plans for urgent dialysis. 08/17: Patient had dialysis catheter placed into the right groin yesterday and received dialysis, plans for another round of dialysis today. Repeat labs today show sodium 135, potassium 5.1, BUN 70, creatinine 3.3. Urine culture was negative, blood cultures show no growth today. Vital signs are stable he's afeb rile 96.7, heart rate 71, retrograde 18, blood pressure 124/67, 91% on 2 L nasal cannula. 08/18: Patient noted to have some confusion which apparently the family has passed on he has been having issues with periodic confusion. Patient does state that his shortness of breath is improving. He underwent hemodialysis yesterday. Patient has Stapleton catheter in for urinary retention followed by urology. Patient is followed by cardiology. Repeat troponins reveal 0.070 and 0.074. Echocardiogram reveals EF of 55-60% with moderate concentric left hypertrophy, mild aortic valve sclerosis, mild aortic regurgitation. Mild tricuspid regurgitation, mild pulmonary hypertension. Cardiology recommends continuing baby aspirin, Lipitor Plavix and metoprolol. Patient has been afebrile, heart rate 63, blood pressure 105/56, pulse ox 94% on 2 L nasal cannula. surveillance system monitor is a sinus rhythm. Repeat blood work reveals WBC 5.5, hemoglobin 10. Potassium 5.5, BUN 54 and creatinine 3.25. Urine culture reveals no growth and finalized. Discharge plan is for [facility] or [facility] for tomorro w. 08/19: Patient still has some mild confusion. Potassium last night was 5.9 and he is status post dextrose and regular insulin, bicarb. Repeat lab work reveals creatinine of 2.69 potassium 5.3. He has been eating well with no nausea or vomiting. No diarrhea. He has had urine output and Stapleton were maintained in place. Dr. Gonzales is requesting the patient stay overnight and if he continues to improve, remove dialysis catheter tomorrow and plan for discharge. surveillance system monitor has been sinus rhythm. Patient is reaching 1000 on incentive spirometry. Mental status is improved at the moment but intermittent confusion has continued. Patient is refusing to go to subacute rehab. Therapies have reevaluated patient today and he did very well with recommendations for home with homecare. Patient's is okay with him coming home and social work will set up home care with anticipation of possible discharge tomorrow. REVIEW OF SYSTEMS Constitutional: No fever, no chills, no night sweats. No weight change. Reports weakness, reports fatigue. EENT: No headache. No nasal drainage or congestion. Lungs: No shortness of breath, cough, no sputum production. No wheezing. Cardiovascular: No chest pain, reports lower extremity edema. No palpitations. No paroxysmal nocturnal dyspnea. No orthopnea. No lightheadedness or dizziness. No syncopal episodes. Abdominal: No abdominal pain. No nausea, vomiting. No diarrhea. No constipation. No bloody or tarry stools. No loss of appetite. Genitourinary: No dysuria, increased frequency, urgency. No urinary retention. Musculoskeletal: No myalgias. No muscle weakness, no gait dysfunction, no frequent falls. No back pain. No neck pain. Integumentary: No wounds, no lesions. No rash or pruritus. No unusual bruising. Neurologic: No aphasia. No facial droop. Noted confusion, noted change in mentation. No head injury. No headache. Psychiatric: No depression. No anxiety. Endocrine: No abnormal blood sugars. No weight change. PHYSICAL EXAMINATION Gen: This is an 85-year-old male. He is resting in bed and appears comfortable. No acute distress. HEENT: Head is atraumatic, normocephalic. Pupils equal, round. Sclerae is anicteric. NECK: Supple. No JVD. No lymphadenopathy. No thyromegaly. LUNGS: Few scattered rhonchi. No intercostal retractions. HEART: Regular rate and rhythm. No murmur. ABDOMEN: Soft. Bowel sounds are present. No masses. No tenderness. EXTREMITIES: 1 pedal edema. No calf tenderness. Ulcer right ankle. See nursing documentation for measurements. NEUROLOGICAL: Patient is awake, alert and oriented to person and place. Cranial nerves 2 through 12 are grossly intact. ASSESSMENT AND PLAN 1 acute kidney injury most likely ATN and possibly secondary to medications specially Bactrim and hypotension with chronic stage III kidney disease. Patient has been started on hemodialysis. Nephrology consult appreciated. Monitor overnight and patient may have hemodialysis catheter removed tomorrow if improving. 2 severe hyperkalemia. Recheck in the morning. 3 reaction to medication most likely Bactrim DS take away the medication at this point continue hydration no need for any steroid use at this point. 4 acute on chronic diastolic congestive heart failure:. Continue dialysis, and metoprolol. Lasix and lisinopril on hold. 5 nonhealing ulcer with severe cellulitis of the lower extremity specially the right leg. Continue Unasyn. 6 urine tract infection with sepsis: Continue IV antibiotics. 7 severe neuropathy: Has been on Lyrica 100 mg twice a day. 8 atherosclerotic heart disease: Continue medical management no invasive procedure patient seen cardiology regularly. 9 Parkinson disease and tremor: Continue patient on Sinemet 3 times a day along with repeat a pro-. 10 chronic gout: Patient remain on allopurinol 100 mg a day. 11 BPH with neurogenic bladder secondary to radiation therapy with urinary retention requiring Stapleton catheter. Urology consult appreciated. Continue Flom ax 0.4 mg daily and finasteride 5 mg in the evening. 12 Arrhythmia with Mild Tachycardia. Patient Remain on Metoprolol 25 Mg Twice a Day. 13 Hypothyroidism: Continue Levothyroxine at 50 g Daily. 14 Type 2 Diabetes on Insulin: Continue Patient on Long Acting Insulin with Please Review 14 a Daily along with NovoLog per Sliding Scales Coverage. 15 GI Prophylaxis: Patient Will Be on Pepcid 20 Mg Daily. 16 DVT Prophylaxis: Patient Will Be on Heparin Subcutaneous. CODE STATUS: NO Code. DISCHARGE PLAN Home with home care on Saturday. Impression and plan of care have been directed as dictated by the signing physician. Missy Douglas nurse practitioner acting as scribe for signing physician. Objective - Vital Signs Vital signs: Vital Signs Temp 97.8 F 08/19/20 11:51 Pulse 72 08/19/20 11:52 Resp 16 08/19/20 11:51 BP 140/63 08/19/20 11:51 Pulse Ox 96 08/19/20 11:51 Intake & Output 08/18/20 08/19/20 08/19/20 18:59 06:59 18:59 Intake Total 440 180 Output Total 1000 300 Balance 440 -1000 -120 Weight 120.8 kg Intake: Oral 440 180 Output: Urine 1000 300 Other: Voiding Method Indwelling Catheter Indwelling Catheter Indwelling Catheter - Labs CBC & Chem 7: 08/19/20 07:52 08/19/20 07:52 Labs: Abnormal Lab Results - Last 24 Hours (Table) 08/18/20 08/18/20 08/19/20 Range/Units 18:58 19:59 00:08 RBC (4.30-5.90) m/uL Hgb (13.0-17.5) gm/dL Hct (39.0-53.0) % Plt Count (150-450) k/uL Potassium 5.9 H (3.5-5.1) mmol/L Carbon Dioxide (22-30) mmol/L BUN 64 H (9-20) mg/dL Creatinine 3.80 H (0.66-1.25) mg/dL Glucose (74-99) mg/dL POC Glucose (mg/dL) 117 H (75-99) mg/dL Calcium 8.3 L (8.4-10.2) mg/dL Phosphorus (2.5-4.5) mg/dL 08/19/20 08/19/20 08/19/20 Range/Units 06:12 06:34 07:52 RBC 3.63 L (4.30-5.90) m/uL Hgb 11.1 L (13.0-17.5) gm/dL Hct 34.7 L (39.0-53.0) % Plt Count 100 L (150-450) k/uL Potassium (3.5-5.1) mmol/L Carbon Dioxide (22-30) mmol/L BUN (9-20) mg/dL Creatinine (0.66-1.25) mg/dL Glucose (74-99) mg/dL POC Glucose (mg/dL) 50 L 57 L (75-99) mg/dL Calcium (8.4-10.2) mg/dL Phosphorus (2.5-4.5) mg/dL 08/19/20 08/19/20 Range/Units 07:52 11:59 RBC (4.30-5.90) m/uL Hgb (13.0-17.5) gm/dL Hct (39.0-53.0) % Plt Count (150-450) k/uL Potassium 5.3 H (3.5-5.1) mmol/L Carbon Dioxide 31 H (22-30) mmol/L BUN 65 H (9-20) mg/dL Creatinine 3.69 H (0.66-1.25) mg/dL Glucose 147 H (74-99) mg/dL POC Glucose (mg/dL) 182 H (75-99) mg/dL Calcium (8.4-10.2) mg/dL Phosphorus 5.9 H (2.5-4.5) mg/dL Microbiology - Last 24 Hours (Table) 08/15/20 15:22 Blood Culture - Preliminary Blood No Growth after 72 hours
--- NOTE | 2020-08-19 14:54 | P.PN ---
Subjective Progress Note Date: 08/19/20 HISTORY OF PRESENT ILLNESS: Patient examined this morning. He is sitting up in the chair. He denies chest pain or pressure. Denies shortness of breath. PHYSICAL EXAM: VITAL SIGNS: Reviewed. GENERAL: Well-developed in no acute distress. NECK: Supple. No JVD or thyromegaly LUNGS: Respirations even and unlabored. Lungs essentially clear to auscultation bilaterally. HEART: Regular rate and rhythm. S1 and S2 heard. EXTREMITIES: Normal range of motion. No clubbing or cyanosis. Peripheral pulses intact. No lower extremity edema ASSESSMENT: #1 severe hyperkalemia #2 acute kidney injury, patient had been taking Bactrim at home for a UTI which could've been contributing. Dialysis catheter placed yesterday #3 congestive heart failure, diastolic acute on chronic, most recent echo performed in 2018 showed an ejection fraction of 55-60% #4 urinary tract infection with sepsis #5 coronary artery disease, patient underwent a cardiac cath in 2018 which revealed OM and circumflex disease #6 Parkinson's #7 hypothyroidism #8 diabetes #9 hypertension #10 hyperlipidemia #11 episode of chest tightness, rule out acute coronary syndrome. EKG shows a normal sinus rhythm with lateral ST depression. Troponins, did not reveal any significant rise or fall pattern, not indicative of acute coronary syndrome. PLAN: Continue current cardiac medications Continue hemodialysis per nephrology. Lasix remains on hold. Patient may be discharged from a cardiac perspective. He is to follow up outpatient with Dr. Ybarra. We will sign off. Please reconsult if needed. Nurse practitioner note has been reviewed by physician. Signing provider agrees with the documented findings, assessment, and plan of care. Objective - Vital Signs Vital signs: Vital Signs Temp 97.8 F 08/19/20 11:51 Pulse 72 08/19/20 11:52 Resp 16 08/19/20 11:51 BP 140/63 08/19/20 11:51 Pulse Ox 96 08/19/20 11:51 Intake & Output 08/18/20 08/19/20 08/19/20 18:59 06:59 18:59 Intake Total 440 360 Output Total 1000 925 Balance 440 -1000 -565 Weight 120.8 kg Intake: Oral 440 360 Output: Urine 1000 925 Other: Voiding Method Indwelling Catheter Indwelling Catheter Indwelling Catheter - Labs CBC & Chem 7: 08/19/20 07:52 08/19/20 07:52 Labs: Abnormal Lab Results - Last 24 Hours (Table) 08/18/20 08/18/20 08/19/20 Range/Units 18:58 19:59 00:08 RBC (4.30-5.90) m/uL Hgb (13.0-17.5) gm/dL Hct (39.0-53.0) % Plt Count (150-450) k/uL Potassium 5.9 H (3.5-5.1) mmol/L Carbon Dioxide (22-30) mmol/L BUN 64 H (9-20) mg/dL Creatinine 3.80 H (0.66-1.25) mg/dL Glucose (74-99) mg/dL POC Glucose (mg/dL) 117 H (75-99) mg/dL Calcium 8.3 L (8.4-10.2) mg/dL Phosphorus (2.5-4.5) mg/dL 08/19/20 08/19/20 08/19/20 Range/Units 06:12 06:34 07:52 RBC 3.63 L (4.30-5.90) m/uL Hgb 11.1 L (13.0-17.5) gm/dL Hct 34.7 L (39.0-53.0) % Plt Count 100 L (150-450) k/uL Potassium (3.5-5.1) mmol/L Carbon Dioxide (22-30) mmol/L BUN (9-20) mg/dL Creatinine (0.66-1.25) mg/dL Glucose (74-99) mg/dL POC Glucose (mg/dL) 50 L 57 L (75-99) mg/dL Calcium (8.4-10.2) mg/dL Phosphorus (2.5-4.5) mg/dL 08/19/20 08/19/20 Range/Units 07:52 11:59 RBC (4.30-5.90) m/uL Hgb (13.0-17.5) gm/dL Hct (39.0-53.0) % Plt Count (150-450) k/uL Potassium 5.3 H (3.5-5.1) mmol/L Carbon Dioxide 31 H (22-30) mmol/L BUN 65 H (9-20) mg/dL Creatinine 3.69 H (0.66-1.25) mg/dL Glucose 147 H (74-99) mg/dL POC Glucose (mg/dL) 182 H (75-99) mg/dL Calcium (8.4-10.2) mg/dL Phosphorus 5.9 H (2.5-4.5) mg/dL Microbiology - Last 24 Hours (Table) 08/15/20 15:22 Blood Culture - Preliminary Blood No Growth after 72 hours
[2020-08-19 17:02] LABS: Glucose,Whole Blood 145 mg/dL (75-99)
[2020-08-19] MEDS: allopurinoL 100 MG TAB PO SCH (17:33)
[2020-08-19] MEDS: ATORVASTATIN 40 MG TAB PO SCH (17:33)
[2020-08-19] MEDS: CALCIUM ACETATE 667 MG TAB PO SCH (17:33)
[2020-08-19] MEDS: FINASTERIDE 5 MG TAB PO SCH (17:33)
[2020-08-19 19:55] LABS: Glucose,Whole Blood 186 mg/dL (75-99)
[2020-08-19] MEDS ORDERED: INSULIN REGULAR 100 UNIT/ML VIAL IV ONE ×2 (20:30→20:31)
[2020-08-19] MEDS ORDERED: SODIUM BICARB 8.4% 50 ML SYR (1 MEQ/ML) IV STA (20:34)
[2020-08-19] MEDS ORDERED: DEXTROSE 50% SYRINGE 50 ML IVP STA (20:35)
[2020-08-19 21:03] LABS: Glucose,Whole Blood 192 mg/dL (75-99)
[2020-08-19] MEDS: CYCLOBENZAPRINE 10 MG TAB PO SCH (21:32)
[2020-08-20] MEDS ORDERED: INSULIN REGULAR 100 UNIT/ML VIAL IV ONE ×2 (01:03→19:06)
[2020-08-20] MEDS ORDERED: DEXTROSE 50% SYRINGE 50 ML IVP STA (01:03)
[2020-08-20 02:09] LABS: Glucose,Whole Blood 57 mg/dL (75-99)
[2020-08-20] MEDS ORDERED: DEXTROSE 50% SYRINGE 50 ML IVP ONE ×2 (02:22→19:06)
[2020-08-20 02:32] LABS: Glucose,Whole Blood 41 mg/dL (75-99)
[2020-08-20 02:36] LABS: Glucose,Whole Blood 142 mg/dL (75-99)
[2020-08-20 07:01] LABS: Glucose,Whole Blood 74 mg/dL (75-99)
[2020-08-20] MEDS: INSULIN ASPART (NovoLOG) 100 UNIT/ML VIAL SQ SCH ×4 (07:02→19:56)
[2020-08-20] MEDS: CALCIUM ACETATE 667 MG TAB PO SCH ×2 (07:03→17:28)
[2020-08-20] MEDS: INSULIN DETEMIR (LEVEMIR) 100 UNIT/ML SYR SQ SCH (07:03)
[2020-08-20] MEDS: LEVOTHYROXINE 50 MCG TAB PO SCH (07:03)
[2020-08-20] MEDS: ALBUTEROL HFA INHALER INHALATION PRN (07:59)
[2020-08-20 08:02] LABS: Basophils % (A) 1 %; Eosinophils # (A) 0.4 k/uL (0-0.7); Eosinophils % (A) 8 %; HCT 32.1 % (39.0-53.0); HGB 10.1 gm/dL (13.0-17.5); Lymphocytes # (A) 1.3 k/uL (1.0-4.8); Lymphocytes % (A) 24 %; MCH 30.1 pg (25.0-35.0); MCHC 31.4 g/dL (31.0-37.0); Mean Platelet Volume 9.3; Monocytes # (A) 0.3 k/uL (0-1.0); Monocytes % (A) 7 %; Neutrophils % (A) 58 %; RBC 3.35 m/uL (4.30-5.90); RDW 14.3 % (11.5-15.5); WBC 5.2 k/uL (3.8-10.6)
[2020-08-20 08:18] LABS: Albumin 3.2 g/dL (3.5-5.0); Calcium 8.3 mg/dL (8.4-10.2); Potassium 5.7 mmol/L (3.5-5.1); Total Bilirubin 0.9 mg/dL (0.2-1.3); Total Protein 5.9 g/dL (6.3-8.2)
[2020-08-20] MEDS ORDERED: LACTULOSE 20 GM/30 ML CUP PO ONE (08:22)
[2020-08-20] MEDS ORDERED: LACTULOSE 20 GM/30 ML CUP PO PRN (08:23)
[2020-08-20] MEDS ORDERED: FUROSEMIDE 10 MG/ML 4 ML VIAL IV STA (08:50)
[2020-08-20] MEDS: FUROSEMIDE 20 MG TAB PO SCH (08:50)
--- NOTE | 2020-08-20 09:57 | P.PN ---
Subjective Progress Note Date: 08/20/20 Principal diagnosis: Acute kidney failure, ATN, severe hyperkalemia, reaction to Bactrim DS, chronic diastolic heart failure, nonhealing ulcer with severe colitis of the lower extr emity especially the right leg, UTI, obstructive uropathy and Parkinson disease 85-year-old male one of my office patient with multiple medical problem was known to have history of chronic kidney disease, type 2 diabetes with multiple complication, severe lower back pain post surgery, history of gout atherosclerotic heart disease and severe BPH was known to have history of chronic pain syndrome who was in the hospital last time and [facility] in 03/12/2024 sepsis with right lower quadrant pain along with pyelonephritis with acute kidney failure feel to outpatient treatment management post IV antibiotics for. 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 Patient also known to have a chronic history of atherosclerotic heart disease with diastolic congestive heart failure has been on medication with good respond the management so far. Patient has been watch for outpatient management was started for UTI on Bactrim DS had a blood work done recently showed severe hyperkalemia with acute kidney injury with BUN of 134 creatinine 5.78 with potassium of 7.5 with peak T waves on EKG test. Patient was seen and evaluated the demurs department was started on sodium bicarbonate, D50 with insulin along with axillary to bring his potassium down repeat potassium level second time down to 6.0 blood sugar was mildly elevated patient still tested positive UA for infection patient will be hospitalized started on IV antibiotic continue hydration and consult nephrology while were holding diuretics and all nephrotoxic agent to improve the kidney function also renal ultrasound will be ordered for tomorrow morning. 08/16: Patient evaluated this morning. Noted to be resting in bedside chair, had complaints of mild hallucinations last night and today. Patient had a renal ultrasound this morning that showed indeterminate echogenic focus within the cortex of left kidney measuring 7 mm, cortical thinning, no hydronephrosis. Labs this morning reveal potassium 6.7 BUN 126 creatinine 5.34, kidney function and hyperkalemia did not improve from yesterday's labs. Nephrology and urology's consult appreciated. Patient will be going for a temporary dialysis catheter today with plans for urgent dialysis. 08/17: Patient had dialysis catheter placed into the right groin yesterday and r eceived dialysis, plans for another round of dialysis today. Repeat labs today show sodium 135, potassium 5.1, BUN 70, creatinine 3.3. Urine culture was negative, blood cultures show no growth today. Vital signs are stable he's afebrile 96.7, heart rate 71, retrograde 18, blood pressure 124/67, 91% on 2 L nasal cannula. 08/18: Patient noted to have some confusion which apparently the family has passed on he has been having issues with periodic confusion. Patient does state that his shortness of breath is improving. He underwent hemodialysis yesterday. Patient has Stapleton catheter in for urinary retention followed by urology. Patient is followed by cardiology. Repeat troponins reveal 0.070 and 0.074. Echocardiogram reveals EF of 55-60% with moderate concentric left hypertrophy, mild aortic valve sclerosis, mild aortic regurgitation. Mild tricuspid regurgitation, mild pulmonary hypertension. Cardiology recommends continuing baby aspirin, Lipitor Plavix and metoprolol. Patient has been afebrile, heart rate 63, blood pressure 105/56, pulse ox 94% on 2 L nasal cannula. Cardiac mon itor is a sinus rhythm. Repeat blood work reveals WBC 5.5, hemoglobin 10. Potassium 5.5, BUN 54 and creatinine 3.25. Urine culture reveals no growth and finalized. Discharge plan is for [facility] or [facility] for tomorrow. 08/19: Patient still has some mild confusion. Potassium last night was 5.9 and he is status post dextrose and regular insulin, bicarb. Repeat lab work reveals creatinine of 2.69 potassium 5.3. He has been eating well with no nausea or vomiting. No diarrhea. He has had urine output and Stapleton were maintained in place. Dr. Gonzales is requesting the patient stay overnight and if he continues to improve, remove dialysis catheter tomorrow and plan for discharge. 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 Patient is reaching 1000 on incentive spirometry. Mental status is improved at the moment but intermittent confusion has continued. Patient is refusing to go to subacute rehab. Therapies have reevaluated patient today and he did very well with recommendations for home with homecare. Patient's is okay with him coming home and social work will set up home care with anticipation of possible discharge tomorrow. 08/20: Patient is doing slightly better still mildly confused but improved from before, his physical therapy done much better, slight increase in his potassium today patient will require to go back on dialysis. Will delay his discharge until tomorrow continue dialysis today see if his dialysis line need to be switched to right IJ. Otherwise will possibly send patient home tomorrow to keep doing dialysis as an outpatient. Objective - Vital Signs Vital signs: Vital Signs Temp 98.8 F 08/20/20 08:00 Pulse 80 08/20/20 08:00 Resp 16 08/20/20 08:00 BP 140/64 08/20/20 08:00 Pulse Ox 93 L 08/20/20 08:00 Intake & Output 08/19/20 08/20/20 08/20/20 18:59 06:59 18:59 Intake Total 720 180 Output Total 1250 350 Balance -530 -350 180 Weight 105.8 kg Intake: Oral 720 180 Output: Urine 1250 350 Other: Voiding Method Indwelling Catheter - Exam REVIEW OF SYSTEMS Constitutional: No fever, no chills, no night sweats. No weight change. Repo rts weakness, reports fatigue. EENT: No headache. No nasal drainage or congestion. Lungs: No shortness of breath, cough, no sputum production. No wheezing. Cardiovascular: No chest pain, reports lower extremity edema. No palpitations. No paroxysmal nocturnal dyspnea. No orthopnea. No lightheadedness or dizziness. No syncopal episodes. Abdominal: No abdominal pain. No nausea, vomiting. No diarrhea. No constipation. No bloody or tarry stools. No loss of appetite. Genitourinary: No dysuria, increased frequency, urgency. No urinary retention. Musculoskeletal: No myalgias. No muscle weakness, no gait dysfunction, no frequent falls. No back pain. No neck pain. Integumentary: No wounds, no lesions. No rash or pruritus. No unusual bruising. Neurologic: No aphasia. No facial droop. Noted confusion, noted change in mentation. No head injury. No headache. Psychiatric: No depression. No anxiety. Endocrine: No abnormal blood sugars. No weight change. PHYSICAL EXAMINATION Gen: This is an 85-year-old male. He is resting in bed and appears comfortable. No acute distress. HEENT: Head is atraumatic, normocephalic. Pupils equal, round. Sclerae is anicteric. NECK: Supple. No JVD. No lymphadenopathy. No thyromegaly. LUNGS: Few scattered rhonchi. No intercostal retractions. HEART: Regular rate and rhythm. No murmur. ABDOMEN: Soft. Bowel sounds are present. No masses. No tenderness. EXTREMITIES: 1 pedal edema. No calf tenderness. Ulcer right ankle. See nursing documentation for measurements. NEUROLOGICAL: Patient is awake, alert and oriented to person and place. Cranial nerves 2 through 12 are grossly intact. - Labs CBC & Chem 7: 08/20/20 06:39 08/20/20 06:39 Labs: Abnormal Lab Results - Last 24 Hours (Table) 08/19/20 08/19/20 08/19/20 Range/Units 11:59 17:00 17:56 RBC (4.30-5.90) m/uL Hgb (13.0-17.5) gm/dL Hct (39.0-53.0) % Plt Count (150-450) k/uL Potassium 5.9 H (3.5-5.1) mmol/L Carbon Dioxide (22-30) mmol/L BUN (9-20) mg/dL Creatinine (0.66-1.25) mg/dL POC Glucose (mg/dL) 182 H 145 H (75-99) mg/dL Calcium (8.4-10.2) mg/dL Total Protein (6.3-8.2) g/dL Albumin (3.5-5.0) g/dL 08/19/20 08/19/20 08/20/20 Range/Units 19:54 21:01 00:03 RBC (4.30-5.90) m/uL Hgb (13.0-17.5) gm/dL Hct (39.0-53.0) % Plt Count (150-450) k/uL Potassium 5.7 H (3.5-5.1) mmol/L Carbon Dioxide (22-30) mmol/L BUN (9-20) mg/dL Creatinine (0.66-1.25) mg/dL POC Glucose (mg/dL) 186 H 192 H (75-99) mg/dL Calcium (8.4-10.2) mg/dL Total Protein (6.3-8.2) g/dL Albumin (3.5-5.0) g/dL 08/20/20 08/20/20 08/20/20 Range/Units 02:06 02:20 02:35 RBC (4.30-5.90) m/uL Hgb (13.0-17.5) gm/dL Hct (39.0-53.0) % Plt Count (150-450) k/uL Potassium (3.5-5.1) mmol/L Carbon Dioxide (22-30) mmol/L BUN (9-20) mg/dL Creatinine (0.66-1.25) mg/dL POC Glucose (mg/dL) 57 L 41 L 142 H (75-99) mg/dL Calcium (8.4-10.2) mg/dL Total Protein (6.3-8.2) g/dL Albumin (3.5-5.0) g/dL 08/20/20 08/20/20 08/20/20 Range/Units 06:39 06:39 07:00 RBC 3.35 L (4.30-5.90) m/uL Hgb 10.1 L (13.0-17.5) gm/dL Hct 32.1 L (39.0-53.0) % Plt Count 90 L (150-450) k/uL Potassium 5.7 H (3.5-5.1) mmol/L Carbon Dioxide 31 H (22-30) mmol/L BUN 64 H (9-20) mg/dL Creatinine 3.59 H (0.66-1.25) mg/dL POC Glucose (mg/dL) 74 L (75-99) mg/dL Calcium 8.3 L (8.4-10.2) mg/dL Total Protein 5.9 L (6.3-8.2) g/dL Albumin 3.2 L (3.5-5.0) g/dL Microbiology - Last 24 Hours (Table) 08/15/20 15:22 Blood Culture - Preliminary Blood No Growth after 96 hours Assessment and Plan Assessment: 1 acute kidney injury most likely ATN and possibly secondary to medications specially Bactrim, we'll start medication continue hydration take away any nephrotoxic agent for now. Consult nephrology renal ultrasound be done as well. 2 severe hyperkalemia: Patient will be going for dialysis today. 3 reaction to medication most likely Bactrim DS take away the medication at this point continue hydration no need for any steroid use at this point. 4 diastolic congestive heart failure: Patient has been on medical management with furosemide 40 mg twice a day, nitro, lisinopril and metoprolol. Patient Lasix will be held for now also hold his lisinopril. Take away. 5 nonhealing ulcer with severe cellulitis of the lower extremity specially the right leg Unasyn will be use daily kidney function improved for now. 6 urine tract infection with sepsis: Continue IV antibiotics until again the urine culture is back. 7 severe neuropathy: Has been on Lyrica 100 mg twice a day. 8 atherosclerotic heart disease: Continue medical management no invasive procedure patient seen cardiology regularly. 9 Parkinson disease and tremor: Continue patient on Sinemet 3 times a day along with repeat a pro-. 10 gout: Patient remain on allopurinol 100 mg a day. 11 BPH: Continue to watch for any urinary retention patient remain on Low-Dose and Add Finasteride Has Been Seen Urology Regularly. 12 Arrhythmia with Mild Tachycardia None A. fib Base: Patient Remain on Metoprolol 25 Mg Twice a Day. 13 Hypothyroidism: Continue Levothyroxine at 50 g Daily. 14 Type 2 Diabetes on Insulin: Continue Patient on Long Acting Insulin with Please Review 14 a Daily along with NovoLog per Sliding Scales Coverage. Patient still mildly hyperkalemic see if need to switch his dialysis line to IJ in the right side the femoral and prepare for discharge home tomorrow.
[2020-08-20] MEDS: ISOSORBIDE MONONITRATE ER 30 MG TAB.ER.24H PO SCH (10:30)
[2020-08-20] MEDS: FAMOTIDINE 20 MG TAB PO SCH (10:30)
[2020-08-20] MEDS: AMPICILLIN-SULBACTAM 1.5 GM in SODIUM CHLORIDE 0.9% 50 ML IVPB SCH ×2 (10:30→20:58)
[2020-08-20] MEDS: ASPIRIN 81 MG PO SCH (10:30)
[2020-08-20] MEDS: DOCUSATE 100 MG CAP PO SCH (10:30)
[2020-08-20] MEDS: polyethylene glycoL 3350 17 GM POWD.PACK PO SCH (10:30)
[2020-08-20] MEDS: TAMSULOSIN 0.4 MG CAP.ER.24H PO SCH (10:31)
[2020-08-20] MEDS: HEPARIN SODIUM,PORCINE 5,000 UNIT/ML 1 ML VIAL SQ SCH ×2 (10:31→20:59)
[2020-08-20] MEDS: METOPROLOL TARTRATE 25 MG TAB PO SCH ×2 (10:31→20:58)
[2020-08-20] MEDS: PREGABALIN 100 MG CAP PO SCH ×2 (10:31→20:58)
[2020-08-20] MEDS: CARBIDOPA-LEVODOPA 25-100 MG 1 EACH TAB PO SCH ×3 (10:31→20:58)
[2020-08-20] MEDS: LORATADINE 10 MG TAB PO SCH (10:31)
[2020-08-20] MEDS: CLOPIDOGREL 75 MG TAB PO SCH (10:31)
[2020-08-20 12:16] LABS: Glucose,Whole Blood 215 mg/dL (75-99)
[2020-08-20 12:32] LABS: Platelet Count 90 k/uL (150-450); Poikilocytosis (M) Present
--- NOTE | 2020-08-20 14:47 | PN ---
PROGRESS NOTE ( ) acute kidney injury and hyperkalemia. Patient's serum potassium has been staying elevated at about 5.5-5.9 mEq/L. He has received two treatments of hemodialysis and his creatinine has been about 3.5-3.8 mg/dL. The patient's last dialysis was on 08/17/2020. This morning when I discussed with the patient he stated that he did not want to continue with long-term renal replacement therapy at this point. However, it appears that upon further discussion with his family, he would like to continue with dialysis if indicated. At the patient urine output, he has an indwelling Stapleton catheter with 24 hour urine output at about 1600 mL. The serum potassium has been treated with insulin and D50. Patient has constipation for which he will be started on lactulose. PHYSICAL EXAMINATION: On examination today, blood pressure was 136/64, heart rate 80 per minute, he is afebrile. Examination of the heart S1, S2. Examination of the lungs, bilateral breath sounds are heard. Abdomen is soft, nontender. Examination of lower extremities shows no significant edema. 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 LABS: Show sodium 138, potassium 5.7, chloride 102, CO2 is 31, BUN 64, creatinine 3.59, calcium 8.3, albumin 3.2, hemoglobin 10.1. ASSESSMENT: 1. Acute kidney injury secondary to acute tubular necrosis from hypotension and Bactrim, currently improved. Serum creatinine staying at about 3.8-3.5 mg per dL. No need for dialysis as renal function is currently stable. If patient's potassium is not controlled over the weekend and he remains hyperkalemic, we will need to place an IJ PermCath and start long-term dialysis with chair time. 2. Hyperkalemia associated with chronic kidney disease. Serum potassium is still on the high side. The patient is maintained on low-potassium diet. His blood sugars are not elevated. His acidosis is corrected as well. There is constipation which may be contributing to the hyperkalemia and treatment has been started for that. 3. Chronic kidney disease stage 3, baseline 2-2.5 secondary to nephrosclerosis. 4. History of urine retention currently with indwelling Stapleton catheter. 5. Status post Bactrim for recent urinary tract infection. 6. Chronic kidney disease mineral bone disorder ,maintained on calcitriol and PhosLo. PLAN: Lasix 40 mg IV x1. Repeat potassium this evening. Hold dialysis for the weekend unless potassium is significantly elevated. If the patient needs to continue with renal replacement therapy, we will have an IJ catheter placed on Saturday. ROYAL / BRON: [id number] /
[2020-08-20 17:18] LABS: Glucose,Whole Blood 172 mg/dL (75-99)
[2020-08-20] MEDS: FINASTERIDE 5 MG TAB PO SCH (17:28)
[2020-08-20] MEDS: allopurinoL 100 MG TAB PO SCH (17:28)
[2020-08-20] MEDS: ATORVASTATIN 40 MG TAB PO SCH (17:29)
[2020-08-20 20:15] LABS: Glucose,Whole Blood 150 mg/dL (75-99)
[2020-08-20] MEDS: CYCLOBENZAPRINE 10 MG TAB PO SCH (20:58)
[2020-08-20 23:02] LABS: Glucose,Whole Blood 108 mg/dL (75-99)
[2020-08-21 01:10] LABS: Calcium 8.5 mg/dL (8.4-10.2); Potassium 5.6 mmol/L (3.5-5.1)
[2020-08-21 03:05] LABS: Glucose,Whole Blood 147 mg/dL (75-99)
[2020-08-21] MEDS: INSULIN ASPART (NovoLOG) 100 UNIT/ML VIAL SQ SCH ×4 (06:32→21:08)
[2020-08-21] MEDS: LEVOTHYROXINE 50 MCG TAB PO SCH ×2 (06:32→11:07)
[2020-08-21] MEDS: INSULIN DETEMIR (LEVEMIR) 100 UNIT/ML SYR SQ SCH (06:32)
[2020-08-21] MEDS: CALCIUM ACETATE 667 MG TAB PO SCH ×2 (06:32→17:22)
[2020-08-21 06:44] LABS: Glucose,Whole Blood 116 mg/dL (75-99)
[2020-08-21] MEDS ORDERED: IV FLUID CONTINUATION 500 ML IV ONE (07:46)
[2020-08-21] MEDS ORDERED: LIDOCAINE 1% INJ 10MG/ML (20 ML MDV) SQ ONE (08:03)
[2020-08-21] MEDS ORDERED: MIDAZOLAM 2 MG/2 ML VIAL IV ONE (08:04)
[2020-08-21] MEDS ORDERED: HEPARIN SODIUM 1,000 UN/ML (10ML VL) MISCELLANE ONE (08:20)
--- NOTE | 2020-08-21 08:33 | P.PCN ---
Description of Procedure: Diagnoses is acute chronic renal failure Post same Ultrasound-guided 23 same dialysis catheter placed right jugular approach #2 is removal of dialysis catheter right femoral approach sedation 23 minutes Patient brought to the Co Op Yovani of the neck and chest was prepped and draped applied in sterile manner 1% lidocaine for infected neck area and with IV sedation micropuncture introducer right jugular vein and micropuncture guidewire was passed. Then we passed a 4-Japanese dilator. The guidewire micropuncture was removed and regular guidewire was passed which was parked at the inferior vena cava.tunel was created and 23 same dialysis catheter brought to the neck incision site after that dilator across on the top of guidewire under fluoroscopy control and sheath was advanced on the top of guidewire through the sheath we placed 23 same dialysis catheter sheath was removed tip of the catheter superior vena cava and an atrium junction flush with heparin saline and Hep-Lock incision was closed was closed with Vicryl and nylon. Right groin was prepped and draped temporary catheter was removed pressure held patient prior the procedure well
--- NOTE | 2020-08-21 09:31 | IR ---
Fluoroscopy History: IR cvc insert central tunneled 2.8 brie seconds of fluoroscopic time and 1 films are submitted for .
--- NOTE | 2020-08-21 09:37 | XR ---
EXAMINATION TYPE: XR chest 1V DATE OF EXAM: 08/21/2020 HISTORY: Shortness of breath. COMPARISON: 03/14/2020 TECHNIQUE: Single view of the chest is submitted. FINDINGS: Demonstrated are scattered senescent parenchymal change. Right IJ central venous line is in place. N o evidence for pneumothorax. Distal tip overlies the SVC. There is no evidence for focal infiltrate. The heart is stable. Hilar and mediastinal structures are within normal limits. Degenerative changes are seen of the dorsal spine. IMPRESSION: 1. Chronic changes without evidence for acute pulmonary disease.
[2020-08-21] MEDS ORDERED: DESMOPRESSIN ACETATE IV ONE (10:51)
[2020-08-21] MEDS ORDERED: SODIUM CHLORIDE 0.9% IV ONE (10:51)
[2020-08-21] MEDS: HEPARIN SODIUM,PORCINE 5,000 UNIT/ML 1 ML VIAL SQ SCH ×2 (11:01→21:21)
[2020-08-21] MEDS: FUROSEMIDE 20 MG TAB PO SCH (11:05)
[2020-08-21] MEDS: CARBIDOPA-LEVODOPA 25-100 MG 1 EACH TAB PO SCH ×3 (11:05→21:08)
[2020-08-21] MEDS: FAMOTIDINE 20 MG TAB PO SCH (11:05)
[2020-08-21] MEDS: ASPIRIN 81 MG PO SCH (11:05)
[2020-08-21] MEDS: ISOSORBIDE MONONITRATE ER 30 MG TAB.ER.24H PO SCH (11:06)
[2020-08-21] MEDS: TAMSULOSIN 0.4 MG CAP.ER.24H PO SCH (11:06)
[2020-08-21] MEDS: METOPROLOL TARTRATE 25 MG TAB PO SCH ×2 (11:06→21:08)
[2020-08-21] MEDS: PREGABALIN 100 MG CAP PO SCH ×2 (11:06→21:08)
[2020-08-21] MEDS: LORATADINE 10 MG TAB PO SCH (11:06)
[2020-08-21 12:01] VITALS: BMI 31.1
[2020-08-21] MEDS: ALBUTEROL HFA INHALER INHALATION PRN (12:17)
[2020-08-21 12:23] LABS: Glucose,Whole Blood 134 mg/dL (75-99)
--- NOTE | 2020-08-21 12:23 | P.PN ---
Subjective Progress Note Date: 08/21/20 Principal diagnosis: Acute kidney failure, ATN, severe hyperkalemia, reaction to Bactrim DS, chronic diastolic heart failure, nonhealing ulcer with severe colitis of the lower extr emity especially the right leg, UTI, obstructive uropathy and Parkinson disease, patient went for procedure for permanent dialysis catheter in the IJ Dr. Goodrich. 85-year-old male one of my office patient with multiple medical problem was known to have history of chronic kidney disease, type 2 diabetes with multiple complication, severe lower back pain post surgery, history of gout atherosclerotic heart disease and severe BPH was known to have history of chronic pain syndrome who was in the hospital last time and [facility] in 03/12/2024 sepsis with right lower quadrant pain along with pyelonephritis with acute kidney failure feel to outpatient treatment management post IV antibiotics for. 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 Patient also known to have a chronic history of atherosclerotic heart disease with diastolic congestive heart failure has been on medication with good respond the management so far. Patient has been watch for outpatient management was started for UTI on Bactrim DS had a blood work done recently showed severe hyperkalemia with acute kidney injury with BUN of 134 creatinine 5.78 with potassium of 7.5 with peak T waves on EKG test. Patient was seen and evaluated the demurs department was started on sodium bicarbonate, D50 with insulin along with axillary to bring his potassium down repeat potassium level second time down to 6.0 blood sugar was mildly elevated patient still tested positive UA for infection patient will be hospitalized started on IV antibiotic continue hydration and consult nephrology while were holding diuretics and all nephrotoxic agent to improve the kidney function also renal ultrasound will be ordered for tomorrow morning. 08/16: Patient evaluated this morning. Noted to be resting in bedside chair, had complaints of mild hallucinations last night and today. Patient had a renal ultrasound this morning that showed indeterminate echogenic focus within the cortex of left kidney measuring 7 mm, cortical thinning, no hydronephrosis. Labs this morning reveal potassium 6.7 BUN 126 creatinine 5.34, kidney function and hyperkalemia did not improve from yesterday's labs. Nephrology and urology's consult appreciated. Patient will be going for a temporary dialysis catheter today with plans for urgent dialysis. 08/17: Patient had dialysis catheter placed into the right groin yesterday and received dialysis, plans for another round of dialysis today. Repeat labs today show sodium 135, potassium 5.1, BUN 70, creatinine 3.3. Urine culture was negative, blood cultures show no growth today. Vital signs are stable he's afebrile 96.7, heart rate 71, retrograde 18, blood pressure 124/67, 91% on 2 L nasal cannula. 08/18: Patient noted to have some confusion which apparently the family has passed on he has been having issues with periodic confusion. Patient does state that his shortness of breath is improving. He underwent hemodialysis yesterday. Patient has Stapleton catheter in for urinary retention followed by urology. Patient is followed by cardiology. Repeat troponins reveal 0.070 and 0.074. Ech ocardiogram reveals EF of 55-60% with moderate concentric left hypertrophy, mild aortic valve sclerosis, mild aortic regurgitation. Mild tricuspid regurgitation, mild pulmonary hypertension. Cardiology recommends continuing baby aspirin, Lipitor Plavix and metoprolol. Patient has been afebrile, heart rate 63, blood pressure 105/56, pulse ox 94% on 2 L nasal cannula. gambling monitor is a sinus rhythm. Repeat blood work reveals WBC 5.5, hemoglobin 10. Potassium 5.5, BUN 54 and creatinine 3.25. Urine culture reveals no growth and finalized. Discharge plan is for [facility] or [facility] for tomorrow. 08/19: Patient still has some mild confusion. Potassium last night was 5.9 and he is status post dextrose and regular insulin, bicarb. Repeat lab work reveals creatinine of 2.69 potassium 5.3. He has been eating well with no nausea or vomiting. No diarrhea. He has had urine output and Stapleton were maintained in place. Dr. Gonzales is requesting the patient stay overnight and if he continues to improve, remove dialysis catheter tomorrow and plan for discharge. gambling monitor has been sinus rhythm. Patient is reaching 1000 on incentive spirometry. Mental status is improved at the moment but intermittent confusion has continued. Patient is refusing to go to subacute rehab. Therapies have reevaluated patient today and he did very well with recommendations for home w ith homecare. Patient's is okay with him coming home and social work will set up home care with anticipation of possible discharge tomorrow. 08/20: Patient is doing slightly better still mildly confused but improved from before, his physical therapy done much better, slight increase in his potassium today patient will require to go back on dialysis. Will delay his discharge until tomorrow continue dialysis today see if his dialysis line need to be switched to right IJ. Otherwise will possibly send patient home tomorrow to keep doing dialysis as an outpatient. 08/21: Patient is still refuses to go to subacute rehab family are willing to take him home his potassium was still elevated yesterday and will require hemodialysis tomorrow. Patient is very drowsy after his procedure today to move his dialysis catheter to prevent catheter in the IJ at the right side which was done today with Dr. Goodrich nephrology at seen patient and planning to do hemodialysis tomorrow morning for his discharge. Objective - Vital Signs Vital signs: Vital Signs Temp 97.1 F L 08/21/20 11:02 Pulse 61 08/21/20 11:02 Resp 16 08/21/20 11:02 BP 111/65 08/21/20 11:02 Pulse Ox 95 08/21/20 11:02 Intake & Output 08/20/20 08/21/20 08/21/20 18:59 06:59 18:59 Intake Total 600 50 Output Total 1400 Balance -800 50 Weight 104.2 kg 104.2 kg Intake: IV 50 Oral 600 Output: Urine 1400 Other: Voiding Method Indwelling Catheter # Voids 1 2 # Bowel Movements 1 - Exam REVIEW OF SYSTEMS Constitutional: No fever, no chills, no night sweats. No weight change. Reports weakness, reports fatigue. EENT: No headache. No nasal drainage or congestion. Lungs: No shortness of breath, cough, no sputum production. No wheezing. Cardiovascular: No chest pain, reports lower extremity edema. No palpitations. No paroxysmal nocturnal dyspnea. No orthopnea. No lightheadedness or dizziness. No syncopal episodes. Abdominal: No abdominal pain. No nausea, vomiting. No diarrhea. No constipation. No bloody or tarry stools. No loss of appetite. Genitourinary: No dysuria, increased frequency, urgency. No urinary retention. Musculoskeletal: No myalgias. No muscle weakness, no gait dysfunction, no frequent falls. No back pain. No neck pain. Integumentary: No wounds, no lesions. No rash or pruritus. No unusual bruising. Neurologic: No aphasia. No facial droop. Noted confusion, noted change in mentation. No head injury. No headache. Psychiatric: No depression. No anxiety. Endocrine: No abnormal blood sugars. No weight change. PHYSICAL EXAMINATION Gen: This is an 85-year-old male. He is resting in bed and appears comfortable. No acute distress. HEENT: Head is atraumatic, normocephalic. Pupils equal, round. Sclerae is anicteric. Permanent dialysis catheter in the right IJ area. NECK: Supple. No JVD. No lymphadenopathy. No thyromegaly. LUNGS: Few scattered rhonchi. No intercostal retractions. HEART: Regular rate and rhythm. No murmur. ABDOMEN: Soft. Bowel sounds are present. No masses. No tenderness. EXTREMITIES: 1 pedal edema. No calf tenderness. Ulcer right ankle. See nursing documentation for measurements. NEUROLOGICAL: Patient is awake, alert and oriented to person and place. Cranial nerves 2 through 12 are grossly intact. - Labs CBC & Chem 7: 08/20/20 06:39 08/21/20 00:25 Labs: Abnormal Lab Results - Last 24 Hours (Table) 08/20/20 08/20/20 08/20/20 Range/Units 06:39 17:17 17:59 RBC 3.35 L (4.30-5.90) m/uL Hgb 10.1 L (13.0-17.5) gm/dL Hct 32.1 L (39.0-53.0) % Plt Count 90 L (150-450) k/uL Sodium (137-145) mmol/L Potassium 6.0 H (3.5-5.1) mmol/L BUN (9-20) mg/dL Creatinine (0.66-1.25) mg/dL Glucose (74-99) mg/dL POC Glucose (mg/dL) 172 H (75-99) mg/dL 08/20/20 08/20/20 08/21/20 Range/Units 20:12 23:00 00:25 RBC (4.30-5.90) m/uL Hgb (13.0-17.5) gm/dL Hct (39.0-53.0) % Plt Count (150-450) k/uL Sodium 136 L (137-145) mmol/L Potassium 5.6 H (3.5-5.1) mmol/L BUN 65 H (9-20) mg/dL Creatinine 3.66 H (0.66-1.25) mg/dL Glucose 130 H (74-99) mg/dL POC Glucose (mg/dL) 150 H 108 H (75-99) mg/dL 08/21/20 08/21/20 Range/Units 03:03 06:43 RBC (4.30-5.90) m/uL Hgb (13.0-17.5) gm/dL Hct (39.0-53.0) % Plt Count (150-450) k/uL Sodium (137-145) mmol/L Potassium (3.5-5.1) mmol/L BUN (9-20) mg/dL Creatinine (0.66-1.25) mg/dL Glucose (74-99) mg/dL POC Glucose (mg/dL) 147 H 116 H (75-99) mg/dL Microbiology - Last 24 Hours (Table) 08/15/20 15:22 Blood Culture - Preliminary Blood No Growth after 120 hours Assessment and Plan Assessment: 1 acute kidney injury most likely ATN and possibly secondary to medications specially Bactrim, we'll start medication continue hydration take away any nephrotoxic agent for now. Consult nephrology renal ultrasound be done as well. 2 severe hyperkalemia: Patient is doing much better with dialysis so far. 3 reaction to medication most likely Bactrim DS take away the medication at this point continue hydration no need for any steroid use at this point. 4 diastolic congestive heart failure: Patient has been on medical management with furosemide 40 mg twice a day, nitro, lisinopril and metoprolol. Patient Lasix will be held for now also hold his lisinopril. Take away. 5 nonhealing ulcer with severe cellulitis of the lower extremity specially the right leg Unasyn will be use daily kidney function improved for now. 6 urine tract infection with sepsis: Continue IV antibiotics until again the urine culture is back. 7 severe neuropathy: Has been on Lyrica 100 mg twice a day. 8 atherosclerotic heart disease: Continue medical management no invasive procedure patient seen cardiology regularly. 9 Parkinson disease and tremor: Continue patient on Sinemet 3 times a day along with repeat a pro-. 10 gout: Patient remain on allopurinol 100 mg a day. 11 BPH: Continue to watch for any urinary retention patient remain on Low-Dose and Add Finasteride Has Been Seen Urology Regularly. 12 Arrhythmia with Mild Tachycardia None A. fib Base: Patient Remain on Metoprolol 25 Mg Twice a Day. 13 Hypothyroidism: Continue Levothyroxine at 50 g Daily. 14 Type 2 Diabetes on Insulin: Continue Patient on Long Acting Insulin with Please Review 14 a Daily along with NovoLog per Sliding Scales Coverage. Hemodialysis catheter was changed to prominent in the right IJ with Dr. Goodrich patient will have hemodialysis tomorrow and hopefully discharge home to do hemodialysis as an outpatient treatment 3 times a week
[2020-08-21] MEDS: AMPICILLIN-SULBACTAM 1.5 GM in SODIUM CHLORIDE 0.9% 50 ML IVPB SCH ×2 (13:11→21:07)
[2020-08-21 16:58] LABS: Glucose,Whole Blood 215 mg/dL (75-99)
[2020-08-21] MEDS: allopurinoL 100 MG TAB PO SCH (17:21)
[2020-08-21] MEDS: polyethylene glycoL 3350 17 GM POWD.PACK PO SCH (17:21)
[2020-08-21] MEDS: DOCUSATE 100 MG CAP PO SCH (17:21)
[2020-08-21] MEDS: CLOPIDOGREL 75 MG TAB PO SCH (17:21)
[2020-08-21] MEDS: FINASTERIDE 5 MG TAB PO SCH (17:22)
[2020-08-21] MEDS: ATORVASTATIN 40 MG TAB PO SCH (17:22)
[2020-08-21 20:00] LABS: Glucose,Whole Blood 213 mg/dL (75-99)
[2020-08-21] MEDS: CYCLOBENZAPRINE 10 MG TAB PO SCH (21:08)
[2020-08-22 02:06] LABS: Glucose,Whole Blood 188 mg/dL (75-99)
[2020-08-22] MEDS: CALCIUM ACETATE 667 MG TAB PO SCH ×2 (06:53→17:55)
[2020-08-22] MEDS: INSULIN ASPART (NovoLOG) 100 UNIT/ML VIAL SQ SCH ×4 (06:53→22:42)
[2020-08-22] MEDS: LEVOTHYROXINE 50 MCG TAB PO SCH (06:53)
[2020-08-22] MEDS: INSULIN DETEMIR (LEVEMIR) 100 UNIT/ML SYR SQ SCH (06:53)
[2020-08-22 07:11] LABS: Glucose,Whole Blood 191 mg/dL (75-99)
[2020-08-22] MEDS: polyethylene glycoL 3350 17 GM POWD.PACK PO SCH (08:33)
[2020-08-22] MEDS: PREGABALIN 100 MG CAP PO SCH ×2 (08:37→22:42)
[2020-08-22] MEDS: CARBIDOPA-LEVODOPA 25-100 MG 1 EACH TAB PO SCH ×3 (08:37→22:42)
[2020-08-22] MEDS: FAMOTIDINE 20 MG TAB PO SCH (08:37)
[2020-08-22] MEDS: AMPICILLIN-SULBACTAM 1.5 GM in SODIUM CHLORIDE 0.9% 50 ML IVPB SCH ×2 (08:45→22:24)
[2020-08-22] MEDS ORDERED: ERGOCALCIFEROL 50,000 UNIT CAP PO SCH (09:00)
[2020-08-22 09:39] LABS: Potassium 5.7 mmol/L (3.5-5.1)
[2020-08-22 09:40] LABS: Albumin 3.7 g/dL (3.5-5.0); Calcium 9.1 mg/dL (8.4-10.2); Total Protein 6.5 g/dL (6.3-8.2)
[2020-08-22 09:50] LABS: Basophils # (A) 0.1 k/uL (0-0.2); Basophils % (A) 1 %; Eosinophils # (A) 0.4 k/uL (0-0.7); Eosinophils % (A) 9 %; HCT 30.6 % (39.0-53.0); HGB 9.8 gm/dL (13.0-17.5); Lymphocytes # (A) 0.9 k/uL (1.0-4.8); Lymphocytes % (A) 20 %; MCHC 32.1 g/dL (31.0-37.0); MCV 93.7 fL (80.0-100.0); Monocytes # (A) 0.3 k/uL (0-1.0); Monocytes % (A) 7 %; Neutrophils # (A) 2.6 k/uL (1.3-7.7); Neutrophils % (A) 59 %; RBC 3.27 m/uL (4.30-5.90); RDW 14.1 % (11.5-15.5); WBC 4.5 k/uL (3.8-10.6)
[2020-08-22 09:51] LABS: Platelet Count 93 k/uL (150-450)
[2020-08-22 12:23] LABS: Glucose,Whole Blood 130 mg/dL (75-99)
[2020-08-22] MEDS: HEPARIN SODIUM,PORCINE 5,000 UNIT/ML 1 ML VIAL SQ SCH ×2 (12:23→22:25)
--- NOTE | 2020-08-22 15:01 | PN ---
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 The patient had discussed with the family and he has decided to proceed with dialysis. He did have a dialysis catheter placed yesterday and he is scheduled for hemodialysis today. grove worker has been: Contacted regarding outpatient chair time outpatient placement and chair time. This morning patient denies any significant complaints. He is comfortable, awake, not in any acute distress. Some bleeding was noted from his PermCath. Blood pressure was 134/72, heart rate 85 per minute patient is afebrile examination of the heart S1, S2. Examination of lungs, bilateral breath sounds are heard abdomen is soft, nontender. Examination of lower extremities shows trace edema bilaterally [employer] WORK[employer] exam grossly intact. LABS: Show sodium 139, potassium 5.7, chloride 105, BUN 68, creatinine 3.96, hemoglobin 9.8 g/dL. ASSESSMENT: 1. 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 Currently being seen by discharge planning and arrangements being made for outpatient dialysis in chair time. 2. Hyperkalemia associated with advanced CKD. Expect improvement with dialysis. 3. Hypertension. 4. Anemia of chronic disease. 5. Status post UTI. 6. CKD mineral bone disorder maintained on calcitriol on PhosLo Hemodialysis today and proceed with outpatient dialysis treatments. The patient states he wants to try it for some time now. MMODL / IJN: [id number] /
[2020-08-22 16:59] LABS: Glucose,Whole Blood 163 mg/dL (75-99)
[2020-08-22] MEDS: METOPROLOL TARTRATE 25 MG TAB PO SCH ×2 (17:45→22:42)
[2020-08-22] MEDS: FUROSEMIDE 20 MG TAB PO SCH (17:45)
[2020-08-22] MEDS: ASPIRIN 81 MG PO SCH (17:46)
[2020-08-22] MEDS: DOCUSATE 100 MG CAP PO SCH (17:46)
[2020-08-22 21:03] LABS: Glucose,Whole Blood 133 mg/dL (75-99)
[2020-08-22] MEDS: CYCLOBENZAPRINE 10 MG TAB PO SCH (22:25)
[2020-08-22] MEDS: LORATADINE 10 MG TAB PO SCH (22:25)
[2020-08-22] MEDS: ATORVASTATIN 40 MG TAB PO SCH (22:25)
[2020-08-22] MEDS: CLOPIDOGREL 75 MG TAB PO SCH (22:25)
[2020-08-22] MEDS: ISOSORBIDE MONONITRATE ER 30 MG TAB.ER.24H PO SCH (22:25)
[2020-08-22] MEDS: TAMSULOSIN 0.4 MG CAP.ER.24H PO SCH (22:25)
[2020-08-22] MEDS: allopurinoL 100 MG TAB PO SCH (22:26)
[2020-08-22] MEDS: FINASTERIDE 5 MG TAB PO SCH (22:26)
[2020-08-23 02:39] LABS: Glucose,Whole Blood 178 mg/dL (75-99)
[2020-08-23 06:32] LABS: Glucose,Whole Blood 161 mg/dL (75-99)
[2020-08-23] MEDS: INSULIN DETEMIR (LEVEMIR) 100 UNIT/ML SYR SQ SCH (07:07)
[2020-08-23] MEDS: INSULIN ASPART (NovoLOG) 100 UNIT/ML VIAL SQ SCH (07:07)
[2020-08-23] MEDS: LEVOTHYROXINE 50 MCG TAB PO SCH (07:07)
[2020-08-23] MEDS: CALCIUM ACETATE 667 MG TAB PO SCH (07:07)
[2020-08-23] MEDS: ALBUTEROL HFA INHALER INHALATION PRN (09:00)
[2020-08-23] MEDS: polyethylene glycoL 3350 17 GM POWD.PACK PO SCH (09:33)
[2020-08-23] MEDS: HEPARIN SODIUM,PORCINE 5,000 UNIT/ML 1 ML VIAL SQ SCH (09:33)
[2020-08-23] MEDS: AMPICILLIN-SULBACTAM 1.5 GM in SODIUM CHLORIDE 0.9% 50 ML IVPB SCH (09:33)
[2020-08-23] MEDS: CARBIDOPA-LEVODOPA 25-100 MG 1 EACH TAB PO SCH (09:34)
[2020-08-23] MEDS: METOPROLOL TARTRATE 25 MG TAB PO SCH (09:34)
[2020-08-23] MEDS: ASPIRIN 81 MG PO SCH (09:34)
[2020-08-23] MEDS: CLOPIDOGREL 75 MG TAB PO SCH (09:34)
[2020-08-23] MEDS: TAMSULOSIN 0.4 MG CAP.ER.24H PO SCH (09:34)
[2020-08-23] MEDS: FAMOTIDINE 20 MG TAB PO SCH (09:34)
[2020-08-23] MEDS: PREGABALIN 100 MG CAP PO SCH (09:34)
[2020-08-23] MEDS: LORATADINE 10 MG TAB PO SCH (09:34)
[2020-08-23] MEDS: FUROSEMIDE 20 MG TAB PO SCH (09:34)
[2020-08-23] MEDS: ISOSORBIDE MONONITRATE ER 30 MG TAB.ER.24H PO SCH (09:35)
[2020-08-23] MEDS: DOCUSATE 100 MG CAP PO SCH (09:35)
[2020-08-23 10:28] VITALS: BP 117/57; PULSE 73; RESP 18; TEMP 98.2
[2020-08-23 10:34] LABS: Calcium 8.3 mg/dL (8.4-10.2)
[2020-08-23 10:35] LABS: Potassium 5.3 mmol/L (3.5-5.1)
--- NOTE | 2020-08-23 12:20 | P.PN ---
Subjective Progress Note Date: 08/22/20 HISTORY OF PRESENT ILLNESS 85-year-old male one of my office patient with multiple medical problem was known to have history of chronic kidney disease, type 2 diabetes with multiple complication, severe lower back pain post surgery, history of gout atherosclerotic heart disease and severe BPH was known to have history of chronic pain syndrome who was in the hospital last time and [facility] in 03/12/2024 sepsis with right lower quadrant pain along with pyelonephritis with acute kidney failure feel to outpatient treatment management post IV antibiotics for. 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 Patient also known to have a chronic history of atherosclerotic heart disease with diastolic congestive heart failure has been on medication with good respond the management so far. Patient has been watch for outpatient management was started for UTI on Bactrim DS had a blood work done recently showed severe hyperkalemia with acute kidney injury with BUN of 134 creatinine 5.78 with potassium of 7.5 with peak T waves on EKG test. [facility] started on sodium bicarbonate, D50 with insulin along with axillary to bring his potassium down repeat potassium level second time down to 6.0 blood sugar was mildly elevated patient still tested positive UA for infection patient will be hospitalized started on IV antibiotic continue hydration and consult nephrology while were holding diuretics and all nephrotoxic agent to improve the kidney function also renal ultrasound will be ordered for tomorrow morning. 08/16: Patient evaluated this morning. Noted to be resting in bedside chair, had complaints of mild hallucinations last night and today. Patient had a renal ultrasound this morning that showed indeterminate echogenic focus within the cortex of left kidney measuring 7 mm, cortical thinning, no hydronephrosis. Labs this morning reveal potassium 6.7 BUN 126 creatinine 5.34, kidney function and hyperkalemia did not improve from yesterday's labs. Nephrology and urology's consult appreciated. Patient will be going for a temporary dialysis catheter today with plans for urgent dialysis. 08/17: Patient had dialysis catheter placed into the right groin yesterday and received dialysis, plans for another round of dialysis today. Repeat labs today show sodium 135, potassium 5.1, BUN 70, creatinine 3.3. Urine culture was negative, blood cultures show no growth today. Vital signs are stable he's afeb rile 96.7, heart rate 71, retrograde 18, blood pressure 124/67, 91% on 2 L nasal cannula. 08/18: Patient noted to have some confusion which apparently the family has passed on he has been having issues with periodic confusion. Patient does state that his shortness of breath is improving. He underwent hemodialysis yesterday. Patient has Stapleton catheter in for urinary retention followed by urology. Patient is followed by cardiology. Repeat troponins reveal 0.070 and 0.074. Echocardiogram reveals EF of 55-60% with moderate concentric left hypertrophy, mild aortic valve sclerosis, mild aortic regurgitation. Mild tricuspid regurgitation, mild pulmonary hypertension. Cardiology recommends continuing baby aspirin, Lipitor Plavix and metoprolol. Patient has been afebrile, heart rate 63, blood pressure 105/56, pulse ox 94% on 2 L nasal cannula. bus monitor is a sinus rhythm. Repeat blood work reveals WBC 5.5, hemoglobin 10. Potassium 5.5, BUN 54 and creatinine 3.25. Urine culture reveals no growth and finalized. Discharge plan is for [facility] or [facility] for tomorro w. 08/19: Patient still has some mild confusion. Potassium last night was 5.9 and he is status post dextrose and regular insulin, bicarb. Repeat lab work reveals creatinine of 2.69 potassium 5.3. He has been eating well with no nausea or vomiting. No diarrhea. He has had urine output and Stapleton were maintained in place. Dr. Gonzales is requesting the patient stay overnight and if he continues to improve, remove dialysis catheter tomorrow and plan for discharge. bus monitor has been sinus rhythm. Patient is reaching 1000 on incentive spirometry. Mental status is improved at the moment but intermittent confusion has continued. Patient is refusing to go to subacute rehab. Therapies have reevaluated patient today and he did very well with recommendations for home with homecare. Patient's is okay with him coming home and social work will set up home care with anticipation of possible discharge tomorrow. 08/20: Patient is doing slightly better still mildly confused but improved from before, his physical therapy done much better, slight increase in his potassium today patient will require to go back on dialysis. Will delay his discharge until tomorrow continue dialysis today see if his dialysis line need to be switched to right IJ. Otherwise will possibly send patient home tomorrow to keep doing dialysis as an outpatient. 08/21: Patient is still refuses to go to subacute rehab family are willing to take him home his potassium was still elevated yesterday and will require hemodialysis tomorrow. Patient is very drowsy after his procedure today to move his dialysis catheter to prevent catheter in the IJ at the right side which was done today with Dr. Goodrich nephrology at seen patient and planning to do hemodialysis tomorrow morning for his discharge. 08/22: Patient had dialysis catheter changed to right IJ yesterday and he is scheduled for hemodialysis today. Plan is for discharge home and continue on long-term dialysis treatment. Repeat chest x-ray shows chronic changes only. He has been afebrile, heart rate 85, blood pressure 134/72, pulse ox 94% on room air. Patient has significant weakness and would benefit with wheelchair at home and would help him complete his ADLs and maintain independence. Plan is for him to return home with his . solar sales manager is arranging for dialysis treatment outpatient. Patient will be discharged home today once all arrangements have been completed. Due to hemodialysis performed very late, patient's discharge was held until the next morning. REVIEW OF SYSTEMS Constitutional: No fever, no chills, no night sweats. No weight change. EENT: No headache. No nasal drainage or congestion. Lungs: No shortness of breath, cough, no sputum production. No wheezing. Cardiovascular: No chest pain, reports lower extremity edema. No palpitations. No lightheadedness or dizziness. No syncopal episodes. Abdominal: No abdominal pain. No nausea, vomiting. No diarrhea. No consti pation. No bloody or tarry stools. No loss of appetite. Genitourinary: No dysuria, increased frequency, urgency. No urinary retention. Musculoskeletal: No myalgias. No muscle weakness, no gait dysfunction, no frequent falls. No back pain. No neck pain. Integumentary: No wounds, no lesions. No rash or pruritus. No unusual bruising. Neurologic: No aphasia. No facial droop. Noted confusion, noted change in mentation. No head injury. No headache. Psychiatric: No depression. No anxiety. Endocrine: No abnormal blood sugars. PHYSICAL EXAMINATION Gen: This is an 85-year-old male. He is resting in bed and appears comfortable. HEENT: Head is atraumatic, normocephalic. Pupils equal, round. Sclerae is anicteric. NECK: Supple. No JVD. No lymphadenopathy. No thyromegaly. LUNGS: Few scattered rhonchi. No intercostal retractions. HEART: Regular rate and rhythm. No murmur. ABDOMEN: Soft. Bowel sounds are present. No masses. No tenderness. EXTREMITIES: 1 pedal edema. No calf tenderness. Ulcer right ankle. NEUROLOGICAL: Patient is awake, alert and oriented to person and place. Cranial nerves 2 through 12 are grossly intact. ASSESSMENT AND PLAN 1 acute kidney injury most likely ATN and possibly secondary to medications specially Bactrim and hypotension with chronic stage III kidney disease. Continue HD per nephrology. 2 severe hyperkalemia. Recheck in the morning. 3 reaction to medication most likely Bactrim DS take away the medication at this point continue hydration no need for any steroid use at this point. 4 acute on chronic diastolic congestive heart failure:. Continue dialysis, and metoprolol. Lasix and lisinopril on hold. 5 nonhealing ulcer with severe cellulitis of the lower extremity specially the right leg. Continue Unasyn. 6 urine tract infection with sepsis: Continue IV antibiotics. 7 severe neuropathy: Has been on Lyrica 100 mg twice a day. 8 atherosclerotic heart disease: Continue medical management no invasive procedure patient seen cardiology regularly. 9 Parkinson disease and tremor: Continue patient on Sinemet 3 times a day along with repeat a pro-. 10 chronic gout: Patient remain on allopurinol 100 mg a day. 11 BPH with neurogenic bladder secondary to radiation therapy with urinary retention requiring Stapleton catheter. Urology consult appreciated. Continue Flomax 0.4 mg daily and finasteride 5 mg in the evening. 12 Arrhythmia with Mild Tachycardia. Patient Remain on Metoprolol 25 Mg Twice a Day. 13 Hypothyroidism: Continue Levothyroxine at 50 g Daily. 14 Type 2 Diabetes on Insulin: Continue Patient on Long Acting Insulin with Please Review 14 a Daily along with NovoLog per Sliding Scales Coverage. 15 GI Prophylaxis: Patient Will Be on Pepcid 20 Mg Daily. 16 DVT Prophylaxis: Patient Will Be on Heparin Subcutaneous. CODE STATUS: NO Code. DISCHARGE PLAN Home with home care on Saturday. Impression and plan of care have been directed as dictated by the signing physician. Missy Douglas nurse practitioner acting as scribe for signing physician. Objective - Vital Signs Vital signs: Vital Signs Temp 98.3 F 08/23/20 04:00 Pulse 65 08/23/20 04:00 Resp 15 08/23/20 04:00 BP 93/54 08/23/20 04:00 Pulse Ox 91 L 08/23/20 04:00 Intake & Output 08/22/20 08/23/20 08/23/20 18:59 06:59 18:59 Intake Total 580 Output Total 500 0 Balance 80 0 Weight 91 kg Intake: Intake, IV Titration 100 Amount Ampicillin-Sulbactam 1.5 100 gm In Sodium Chloride 0.9 % 50 ml @ 100 mls/hr IVPB Q12HR [facility] Rx#:[id number] Oral 480 Output: Urine 500 Hemodialysis 0 Other: Voiding Method Indwelling Catheter # Voids 1 1 # Bowel Movements 2 - Labs CBC & Chem 7: 08/22/20 08:50 08/23/20 09:51 Labs: Abnormal Lab Results - Last 24 Hours (Table) 08/22/20 08/22/20 08/22/20 Range/Units 08:50 08:50 12:21 RBC 3.27 L (4.30-5.90) m/uL Hgb 9.8 L (13.0-17.5) gm/dL Hct 30.6 L (39.0-53.0) % Plt Count 93 L (150-450) k/uL Lymphocytes # 0.9 L (1.0-4.8) k/uL Potassium 5.7 H (3.5-5.1) mmol/L BUN 68 H (9-20) mg/dL Creatinine 3.96 H (0.66-1.25) mg/dL Glucose 191 H (74-99) mg/dL POC Glucose (mg/dL) 130 H (75-99) mg/dL 08/22/20 08/22/20 08/23/20 Range/Units 16:57 21:02 02:38 RBC (4.30-5.90) m/uL Hgb (13.0-17.5) gm/dL Hct (39.0-53.0) % Plt Count (150-450) k/uL Lymphocytes # (1.0-4.8) k/uL Potassium (3.5-5.1) mmol/L BUN (9-20) mg/dL Creatinine (0.66-1.25) mg/dL Glucose (74-99) mg/dL POC Glucose (mg/dL) 163 H 133 H 178 H (75-99) mg/dL 08/23/20 Range/Units 06:31 RBC (4.30-5.90) m/uL Hgb (13.0-17.5) gm/dL Hct (39.0-53.0) % Plt Count (150-450) k/uL Lymphocytes # (1.0-4.8) k/uL Potassium (3.5-5.1) mmol/L BUN (9-20) mg/dL Creatinine (0.66-1.25) mg/dL Glucose (74-99) mg/dL POC Glucose (mg/dL) 161 H (75-99) mg/dL
--- NOTE | 2020-08-23 15:13 | PN ---
PROGRESS NOTE Patient is seen for followup for CKD and recently started dialysis on this admission. Patient was dialyzed yesterday. He has an IJ PermCath. Plans are for discharge today and follow up as outpatient for hemodialysis on a Saturday, Saturday, Saturday schedule. PHYSICAL EXAMINATION: On examination today, blood pressure 117/57, heart rate 73 per minute, he is afebrile. Examination of the heart S1, S2. Examination of the lungs, bilateral breath sounds are heard. Abdomen is soft, nontender. Examination of the lower extremities shows no significant edema. [employer] exam grossly intact. LABS: Show sodium 134, potassium 5.3, chloride 103, CO2 is 21, BUN 42, creatinine 2.75. ASSESSMENT: 1. End-stage renal disease, started dialysis this admission. Continue Saturday, Saturday, Saturday schedule as outpatient. 2. Hyperkalemia, expect improvement with ongoing renal replacement therapy. 3. CKD mineral bone disorder. 4. Status post urinary tract infection. 5. Hypertension associated with CKD, currently controlled. PLAN: Patient can be discharged. Follow up as outpatient for hemodialysis tomorrow. MMODL / IJN: [id number] /
== END 2020-08-23 12:14 | disposition home health service (06) | DRG 673 ==
LOC: EC 11:54 → 3SCARD 15:36
PROVIDERS: ADMIT Internal Medicine Geriatric Medicine; ATTEND Internal Medicine Geriatric Medicine
PROC: 02HV33Z Insertion of Infusion Device into Superior Vena Cava, Percutaneous Approach (ICD-10-PCS; principal; 2020-08-21 08:00)
PROC: 0JH63XZ Insertion of Tunneled Vascular Access Device into Chest Subcutaneous Tissue and Fascia, Percutaneous Approach (ICD-10-PCS; principal; 2020-08-21 08:00)
DX: N17.0 Acute kidney failure with tubular necrosis (principal); A41.9 Sepsis, unspecified organism; I50.33 Acute on chronic diastolic (congestive) heart failure; E87.2 Acidosis; I13.2 Hypertensive heart and chronic kidney disease with heart failure and with stage 5 chronic kidney disease, or end stage renal disease; N39.0 Urinary tract infection, site not specified; L03.115 Cellulitis of right lower limb; L97.919 Non-pressure chronic ulcer of unspecified part of right lower leg with unspecified severity; N18.6 End stage renal disease; E03.9 Hypothyroidism, unspecified; D63.1 Anemia in chronic kidney disease; E78.5 Hyperlipidemia, unspecified; E87.5 Hyperkalemia; G20 Parkinson's disease; G62.9 Polyneuropathy, unspecified; G89.4 Chronic pain syndrome; Z20.828 Contact with and (suspected) exposure to other viral communicable diseases; E11.22 Type 2 diabetes mellitus with diabetic chronic kidney disease; I25.10 Atherosclerotic heart disease of native coronary artery without angina pectoris; I27.20 Pulmonary hypertension, unspecified; M19.90 Unspecified osteoarthritis, unspecified site; N40.1 Benign prostatic hyperplasia with lower urinary tract symptoms; E83.89 Other disorders of mineral metabolism; M1A.9XX0 Chronic gout, unspecified, without tophus (tophi); K59.00 Constipation, unspecified; E11.622 Type 2 diabetes mellitus with other skin ulcer; N31.9 Neuromuscular dysfunction of bladder, unspecified; I70.0 Atherosclerosis of aorta; Y84.2 Radiological procedure and radiotherapy as the cause of abnormal reaction of the patient, or of later complication, without mention of misadventure at the time of the procedure; R00.0 Tachycardia, unspecified; I48.91 Unspecified atrial fibrillation; R33.8 Other retention of urine; I08.2 Rheumatic disorders of both aortic and tricuspid valves; Z96.653 Presence of artificial knee joint, bilateral; Z99.2 Dependence on renal dialysis; Z95.5 Presence of coronary angioplasty implant and graft; Z87.891 Personal history of nicotine dependence; Z87.442 Personal history of urinary calculi; Z87.440 Personal history of urinary (tract) infections; Z85.820 Personal history of malignant melanoma of skin; Z83.3 Family history of diabetes mellitus; Z82.5 Family history of asthma and other chronic lower respiratory diseases; Z82.49 Family history of ischemic heart disease and other diseases of the circulatory system; Z79.899 Other long term (current) drug therapy; Z79.890 Hormone replacement therapy; Z79.82 Long term (current) use of aspirin; Z79.4 Long term (current) use of insulin; Z79.02 Long term (current) use of antithrombotics/antiplatelets; Z88.1 Allergy status to other antibiotic agents; Z88.5 Allergy status to narcotic agent; Z88.8 Allergy status to other drugs, medicaments and biological substances; Z86.14 Personal history of Methicillin resistant Staphylococcus aureus infection; Z90.49 Acquired absence of other specified parts of digestive tract; Z90.89 Acquired absence of other organs; Z98.890 Other specified postprocedural states; Z98.1 Arthrodesis status; Z80.0 Family history of malignant neoplasm of digestive organs
CPT/HCPCS: 36415; 36558; 36600; 71045; 76770; 76937; 77001; 80048; 80053; 81001; 82550; 82728; 82805; 82947; 83605; 83615; 83735; 84100; 84132; 84145; 84443; 84484; 85025; 85379; 85610; 85730; 86140; 86704; 86706; 87040; 87086; 87340; 90935; 93005; 93306; 94640; 94644; 96365; 96366; 96368; 96375; 96376; 99291

== ENCOUNTER → 2021-05-23 | Outpatient (CLI) | payer MEDICARE, OTHER ==
[~2021-05-23] MED LIST changes: +IODINE/POTASS IOD (LUGOLS) BOTTLE TOPICAL ONE; -metroNIDAZOLE-NS PMX 500 MG in SALINE 1 100ML.BAG IVPB ONE
--- NOTE | 2021-05-25 08:50 | NM ---
EXAMINATION TYPE: NM DatScan Brain SPECT DATE OF EXAM: 05/23/2021 COMPARISON: NONE HISTORY: Tremors TECHNIQUE: 10 drops of Lugol's solution was administered 1 hour prior to injection as a thyroid bloc violette agent. After the administration of 4.44 mCi I-123 Ioflupane DaTscan. Images obtained 3 hours p ost injection. SPECT images of the brain were acquired with axial and coronal reconstructions. FINDINGS: The axial SPECT images demonstrate increased background activity and reduced activity withi n the bilateral striata. IMPRESSION: Abnormal appearance highly suggestive of idiopathic Parkinson's disease or Parkinsonian s yndrome.
== END | disposition home or self-care (01) ==
LOC: RADNMMAIN 10:46
PROVIDERS: ATTEND Psychiatry & Neurology Neurology
DX: R25.1 Tremor, unspecified (principal)
CPT/HCPCS: 78803; A9584

== ENCOUNTER 2022-12-19 13:54 | Inpatient (IN) | payer MEDICARE ==
--- NOTE | 2022-12-19 14:16 | ED ---
Altered Mental Status HPI - General Chief Complaint: Altered Mental Status Stated Complaint: Lethargy Time Seen by Provider: 12/19/22 14:02 Source: EMS Mode of arrival: EMS - History of Present Illness Initial Comments: This 87-year-old male presents from dialysis after he apparently was not acting normal per his . He apparently has been sleeping more. He's been moving ve ry slow. He slept through his entire dialysis which is abnormal for him. He is confused as well. He is denying any chest pain, shortness breath, abdominal pain, fevers, chills, cough. He apparently just started a new muscle relaxer just yesterday. He only makes sporadic urine as he is on dialysis Saturday, Saturday, and Saturday. He denies any other complaints or modifying factors. Patient does answers questions well but history is questionable due to possible altered mental status. He does relate that he has some memory problems. is not present upon initial examination. Additional history is obtained per nurse. later does present and relates that he just started the baclofen for the first time yesterday. She feels as though his symptoms are likely related to this. He had taken at one time previously and it caused him to vomit. She will not give him this medication anymore. She also states that he has a chronic cough which is unchanged other than the production. She states that he is now producing a yellow to greenish type of production over the past several days. On reevaluation he is much more alert and she states that he appears much improved. She states that it took him 45 minutes to get ready this morning and he was very weak. He previously was on Flexeril and this seemed to work well for him so is hoping that he can go back on Flexeril. - Related Data Home Medications Medication Instructions Recorded Confirmed allopurinoL [Zyloprim] 100 mg PO HS 06/02/16 12/19/22 Cetirizine HCl [Zyrtec] 10 mg PO DAILY 05/26/18 12/19/22 Finasteride [Proscar] 5 mg PO HS 05/26/18 12/19/22 Tamsulosin HCl [Flomax] 0.4 mg PO PC-[id number] 05/26/18 12/19/22 Aspirin 81 mg PO DAILY 07/18/19 12/19/22 Atorvastatin [Lipitor] 40 mg PO HS 07/18/19 12/19/22 Carbidopa-Levodopa 25-100 mg 1 tab PO TID 07/18/19 12/19/22 [Sinemet 25-100 mg] Albuterol Sulfate [Proair Hfa] 2 puff INHALATION RT-Q4H PRN 08/15/20 12/19/22 Levothyroxine Sodium [Synthroid] 50 mcg PO HS 08/15/20 12/19/22 Insulin Aspart [NovoLOG Flexpen] 5 units SQ AC-TID 01/14/22 12/19/22 Insulin Glargine,Hum.rec.anlog 30 units SQ DAILY 01/14/22 12/19/22 [Toujeo Solostar] Isosorbide Mononitrate ER [Imdur] 30 mg PO SUTUTHSA 01/14/22 12/19/22 Lactulose [Constulose] 30 ml PO DAILY 01/14/22 12/19/22 Midodrine HCl [ProAmatine] 10 mg PO MOWEFR@0900,2100 01/14/22 12/19/22 Nephro-Paulo 0.8mg 1 cap PO DAILY 01/14/22 12/19/22 Pregabalin [Lyrica] 100 mg PO AC-BID 01/14/22 12/19/22 Sevelamer Carbonate 2,400 mg PO TID 01/14/22 12/19/22 polyethylene glycoL 3350 [Miralax] 17 gm PO DAILY 01/14/22 12/19/22 Baclofen 5 mg PO BID@0900,1500 PRN 12/19/22 12/19/22 Baclofen 10 mg PO HS PRN 12/19/22 12/19/22 Calcium Acetate [PhosLo] 667 mg PO TID 12/19/22 12/19/22 Melatonin 3 mg PO HS 12/19/22 12/19/22 Previous Rx's Medication Instructions Recorded Nitroglycerin Sl Tabs [Nitrostat] 0.4 mg SUBLINGUAL Q5M PRN #25 tab 06/04/18 Hydrocodone/Acetaminophen [Dewart 1 - 2 tab PO Q4HR PRN #18 tab 08/19/20 10-325] Metoprolol Tartrate [Lopressor] 12.5 mg PO SUTUTHSA@0900 #0 01/19/22 Metoprolol Tartrate [Lopressor] 12.5 mg PO TONNY@2100 #0 01/19/22 Allergies Allergy/AdvReac Type Severity Reaction Status Date / Time cephalexin [From Keflex] Allergy Itching Verified 12/19/22 15:42 sulfamethoxazole Allergy Itching Verified 12/19/22 15:42 [From Bactrim] trimethoprim [From Bactrim] Allergy Itching Verified 12/19/22 15:42 baclofen AdvReac Severe Nausea & Verified 12/19/22 15:42 Vomiting fentanyl AdvReac Hallucinati Verified 12/19/22 15:42 ons hydromorphone HCl AdvReac Nausea & Verified 12/19/22 15:42 [From Dilaudid] Vomiting morphine AdvReac Hallucinati Verified 12/19/22 15:42 ons vancomycin AdvReac Chills, Verified 12/19/22 15:42 Sweating, Did not feel well Review of Systems ROS Statement: Those systems with pertinent positive or pertinent negative responses have been documented in the HPI. ROS Other: All systems not noted in ROS Statement are negative. Past Medical History Past Medical History: Coronary Artery Disease (CAD), Cancer, Chest Pain / Angina, Diabetes Mellitus, Hyperlipidemia, Hypertension, Osteoarthritis (OA), Prostate Disorder, Renal Disease Additional Past Medical History / Comment(s): parkinson's, hx gout, hx basal cell carcinoma on head, melanoma lt shoulder, hx kidney stones, hx migraines, constipation, dialysis started august 2020 on mon,wed,saturday schedule, fistula in left arm december 2020. History of Any Multi-Drug Resistant Organisms: None Reported, MRSA Date of last positivie culture/infection: 2004 MDRO Source:: rt shoulder Past Surgical History: Back Surgery, Cholecystectomy, Ear Surgery, Heart Catheterization, Heart Catheterization With Stent, Joint Replacement, Orthopedic Surgery, Tonsillectomy Additional Past Surgical History / Comment(s): cody knee replacement, cody. carpal tunnel release, cody shoulder rotator cuff repair, back surgery x5, (laminectomy, laminectomy with fusion, laminectomy and partial removal of fusion x2) lumbar fusionL4,L5, lt ear surgery x3 with replacement malleus/incus/stapes, revision of tympanoplasty, wide excision melanoma left shoulder, I&D rt thumb, l ithotripsy,cystoscopy with kidney stone retrieved, cody cataracts, face and left ear multiple lesion removal, oral surgery, one cardiac stent, cody knee arthroscopy, debridement of rt shoulder x 2 with partial closure of rt shoulder, Past Anesthesia/Blood Transfusion Reactions: Family History of Problems w/ Anesthesia Additional Past Anesthesia/Blood Transfusion Reaction / Comment(s): hx vertigo, brother had issues-not sure what it was Date of Last Stent Placement:: 06/2018 Past Psychological History: No Psychological Hx Reported Smoking Status: Never smoker Past Alcohol Use History: None Reported Past Drug Use History: None Reported - Past Family History Mother Family Medical History: Cancer Father Family Medical History: Coronary Artery Disease (CAD), Hypertension Brother(s) Family Medical History: Cancer Sister(s) Family Medical History: Cancer, COPD, Diabetes Mellitus, Hypertension General Exam - General Exam Comments Initial Comments: GENERAL: The patient is well nourished and well hydrated. VITAL SIGNS: Heart rate, blood pressure, respiratory rate reviewed as recorded in nurse's notes. EYES: Pupils are round and reactive. Extraocular movements are intact. No conjunctival / lid redness or swelling. ENT: No external evidence of injury, swelling, or ecchymosis. Airway is patent. Throat is clear. NECK: Nontender. No swelling or evidence of injury. No subcutaneous emphysema. Trachea is midline. No thyroid mass. HEART: Regular rate and rhythm. Good peripheral pulses. LUNGS/CHEST: Breath sounds clear and equal bilaterally. No rales, rhonchi, or wheezes. No ecchymosis, subcutaneous emphysema, or tenderness. ABDOMEN: Abdomen soft without tenderness. No palpable masses or organomegaly. No peritoneal signs. No abdominal wall swelling or ecchymosis. EXTREMITIES: No extremity tenderness. Normal muscle tone and function. No thoracolumbar tenderness. He does have a brace to his left leg. NEUROLOGIC: Sensation is grossly intact. Cranial nerve exam reveals face is symmetrical, tongue is midline, speech is clear. SKIN: No abrasions or ecchymosis is noted. No induration or masses noted. PSYCHIATRIC: Alert and pleasant. He is not oriented. There is no outward signs of anxiety, psychosis, or depression. Course Vital Signs 12/19/22 13:56 Temperature 98.1 F Pulse Rate 70 Respiratory 16 Rate Blood Pressure 129/69 O2 Sat by Pulse 98 Oximetry Medical Decision Making - Medical Decision Making EKG is interpreted by myself and does show a normal sinus rhythm with associated left bundle branch block with heart rate of 68. This does show some flattened T waves in aVL. The MA intervals 207, QS duration is 142, and the QTC intervals 445. Was pt. sent in by a medical professional or institution (RANGEL Sharif, SEED ANALYST, urgent care, hospital, or assisted...) When possible be specific @ -Patient was sent over from dialysis center due to decreased mental status. Did you speak to anyone other than the patient for history (EMS, parent, family, police, friend...)? What history was obtained from this source @ -History is obtained from patient and also his who is a good historian. Did you review nursing and triage notes (agree or disagree)? Why? @ -I reviewed and agree with nursing and triage notes Were old charts reviewed (outside hosp., previous admission, EMS record, old EKG, old radiological studies, urgent care reports/EKG's, assisted records)? Report findings @ -Old records were reviewed to obtain additional past medical history. Differential Diagnosis (chest pain, altered mental status, abdominal pain women, abdominal pain men, vaginal bleeding, weakness, fever, dyspnea, syncope, headache, dizziness, GI bleed, back pain, seizure, CVA, palpatations, mental hea lth, musculoskeletal)? @ -Altered mental status, elevated CO2, hyperammonia anemia, infection, pneumonia, bronchitis, kidney failure EKG interpreted by me (3pts min.). @ -As above X-rays interpreted by me (1pt min.). @ -X-rays were interpreted by myself as well as radiologist and does show some increased parenchymal changes possibly infectious in nature. CT interpreted by me (1pt min.). @ -CT was interpreted by radiologist and does not show any acute process. U/S interpreted by me (1pt. min.). @ -None done What testing was considered but not performed or refused? (CT, X-rays, U/S, labs)? Why? @ -None What meds were considered but not given or refused? Why? @ -None Did you discuss the management of the patient with other professionals (professionals i.e. RANGEL Sharif, SEED ANALYST, lab, RT, psych nurse, health care social worker, scraper burrer, teacher, senior loan officer, field nurse case manager)? Give summary @ -Case is discussed with internal medicine who is agreeable with admission. Was smoking cessation discussed for >3mins.? @ -No Was critical care preformed (if so, how long)? @ -No Were there social determinants of health that impacted care today? How? (Homelessness, low income, unemployed, alcoholism, drug addiction, transportation, low edu. Level, literacy, decrease access to med. care, longterm, rehab)? @ -No Was there de-escalation of care discussed even if they declined (Discuss DNR or withdrawal of care, Hospice)? DNR status @ -No What co-morbidities impacted this encounter? (DM, HTN, Smoking, COPD, CAD, Cancer, CVA, ARF, Chemo, Hep., AIDS, mental health diagnosis, sleep apnea, morbid obesity)? @ -Diabetes, end-stage renal failure Was patient admitted / discharged? Hospital course, mention meds given and route, prescriptions, significant lab abnormalities, going to OR and other pertinent info. @ -The patient was seen and examined. IV is established. Diagnostics are reviewed. Laboratory does show evidence of his chronic renal failure. There is slight decrease in chloride and slight increase in CO2. His x-ray is suspicious for pneumonia. does notice yellowish greenish production with cough as well. He is placed on the Levaquin for suspected pneumonia. It is also felt as though his mental status changes potentially could be related to the baclofen and they're instructed to avoid utilizing this medication in the future. It also is felt as though he would benefit from admission to the hospital for at least one day for IV antibiotics and monitoring. He apparently was very weak and it is felt as though he would need to improve in regards to his friends before being discharged home. Internal medicine is agreeable with admission. Undiagnosed new problem with uncertain prognosis? @ -No Drug Therapy requiring intensive monitoring for toxicity (Heparin, Nitro, Insulin, Cardizem)? @ -No Were any procedures done? @ -No Diagnosis/symptom? @ -Altered mental statusresolved, weakness, pneumonia, medication interaction Acute, or Chronic, or Acute on Chronic? @ -Acute Uncomplicated (without systemic symptoms) or Complicated (systemic symptoms)? @ -Uncomplicated Side effects of treatment? @ -No Exacerbation, Progression, or Severe Exacerbation? @ -No Poses a threat to life or bodily function? How? (Chest pain, [place], [place], pneumonia, PE, COPD, DKA, ARF, appy, cholecystitis, CVA, Diverticulitis, Homicidal, Suicidal, threat to staff... and all critical care pts) @ -No - Lab Data Result diagrams: 12/19/22 14:15 12/19/22 14:15 Lab Results 12/19/22 12/19/22 12/19/22 Range/Units 14:15 14:15 14:15 WBC 5.3 (3.8-10.6) k/uL RBC 3.86 L (4.30-5.90) m/uL Hgb 13.0 (13.0-17.5) gm/dL Hct 35.9 L (39.0-53.0) % MCV 93.1 (80.0-100.0) fL MCH 33.7 (25.0-35.0) pg MCHC 36.2 (31.0-37.0) g/dL RDW 13.4 (11.5-15.5) % Plt Count 108 L (150-450) k/uL MPV 9.3 Neutrophils % 63 % Lymphocytes % 25 % Monocytes % 5 % Eosinophils % 4 % Basophils % 1 % Neutrophils # 3.4 (1.3-7.7) k/uL Lymphocytes # 1.3 (1.0-4.8) k/uL Monocytes # 0.2 (0-1.0) k/uL Eosinophils # 0.2 (0-0.7) k/uL Basophils # 0.1 (0-0.2) k/uL PT 10.5 (9.0-12.0) sec INR 1.0 (<1.2) APTT 22.3 (22.0-30.0) sec Sodium 138 (137-145) mmol/L Potassium 4.4 (3.5-5.1) mmol/L Chloride 93 L (98-107) mmol/L Carbon Dioxide 31 H (22-30) mmol/L Anion Gap 14 mmol/L BUN 22 H (9-20) mg/dL Creatinine 3.02 H (0.66-1.25) mg/dL Est GFR (CKD-EPI)AfAm 20 (>60 ml/min/1.73 sqM) Est GFR (CKD-EPI)NonAf 18 (>60 ml/min/1.73 sqM) Glucose 161 H (74-99) mg/dL POC Glucose (mg/dL) (70-110) mg/dL POC Glu Materials Management Clerk ID Calcium 9.0 (8.4-10.2) mg/dL Total Bilirubin 1.0 (0.2-1.3) mg/dL AST 36 (17-59) U/L ALT 15 (4-49) U/L Alkaline Phosphatase 104 (38-126) U/L Ammonia (<30) umol/L Troponin I (0.000-0.034) ng/mL Total Protein 8.4 H (6.3-8.2) g/dL Albumin 5.0 (3.5-5.0) g/dL 12/19/22 12/19/22 12/19/22 Range/Units 14:15 14:15 14:44 WBC (3.8-10.6) k/uL RBC (4.30-5.90) m/uL Hgb (13.0-17.5) gm/dL Hct (39.0-53.0) % MCV (80.0-100.0) fL MCH (25.0-35.0) pg MCHC (31.0-37.0) g/dL RDW (11.5-15.5) % Plt Count (150-450) k/uL MPV Neutrophils % % Lymphocytes % % Monocytes % % Eosinophils % % Basophils % % Neutrophils # (1.3-7.7) k/uL Lymphocytes # (1.0-4.8) k/uL Monocytes # (0-1.0) k/uL Eosinophils # (0-0.7) k/uL Basophils # (0-0.2) k/uL PT (9.0-12.0) sec INR (<1.2) APTT (22.0-30.0) sec Sodium (137-145) mmol/L Potassium (3.5-5.1) mmol/L Chloride (98-107) mmol/L Carbon Dioxide (22-30) mmol/L Anion Gap mmol/L BUN (9-20) mg/dL Creatinine (0.66-1.25) mg/dL Est GFR (CKD-EPI)AfAm (>60 ml/min/1.73 sqM) Est GFR (CKD-EPI)NonAf (>60 ml/min/1.73 sqM) Glucose (74-99) mg/dL POC Glucose (mg/dL) 160 H (70-110) mg/dL POC Glu Materials Management Clerk ID Chi Zabala Calcium (8.4-10.2) mg/dL Total Bilirubin (0.2-1.3) mg/dL AST (17-59) U/L ALT (4-49) U/L Alkaline Phosphatase (38-126) U/L Ammonia <9 (<30) umol/L Troponin I 0.014 (0.000-0.034) ng/mL Total Protein (6.3-8.2) g/dL Albumin (3.5-5.0) g/dL Disposition Clinical Impression: Altered mental status, Weakness, Medication side effect, Pneumonia, End stage renal failure on dialysis Disposition: ADMITTED IP TO THIS [facility] Condition: Fair Is patient prescribed a controlled substance at d/c from ED?: No Time of Disposition: 16:50 Decision Date: 12/19/22 Decision Time: 16:50
[2022-12-19 14:46] LABS: Glucose,Whole Blood 160 mg/dL (70-110)
[2022-12-19 14:52] LABS: Basophils # (A) 0.1 k/uL (0-0.2); Basophils % (A) 1 %; Eosinophils # (A) 0.2 k/uL (0-0.7); Eosinophils % (A) 4 %; HCT 35.9 % (39.0-53.0); Lymphocytes # (A) 1.3 k/uL (1.0-4.8); Lymphocytes % (A) 25 %; MCH 33.7 pg (25.0-35.0); MCHC 36.2 g/dL (31.0-37.0); MCV 93.1 fL (80.0-100.0); Mean Platelet Volume 9.3; Monocytes # (A) 0.2 k/uL (0-1.0); Monocytes % (A) 5 %; Neutrophils # (A) 3.4 k/uL (1.3-7.7); Neutrophils % (A) 63 %; Platelet Count 108 k/uL (150-450); RBC 3.86 m/uL (4.30-5.90); RDW 13.4 % (11.5-15.5); WBC 5.3 k/uL (3.8-10.6)
[2022-12-19 14:59] LABS: Total Protein 8.4 g/dL (6.3-8.2)
[2022-12-19 15:02] LABS: Partial Thromboplastin Time 22.3 sec (22.0-30.0); Prothrombin Time 10.5 sec (9.0-12.0)
[2022-12-19 15:03] LABS: Potassium 4.4 mmol/L (3.5-5.1)
--- NOTE | 2022-12-19 15:19 | XR ---
EXAMINATION TYPE: XR chest 1V portable DATE OF EXAM: 12/19/2022 COMPARISON: 08/21/2020. HISTORY: Acute mental status with lethargic. TECHNIQUE: Single frontal view of the chest is obtained. FINDINGS: There is patchy parenchymal changes seen throughout the mid and lower lungs bilaterally wh ich may be inflammatory or infectious. The cardiac silhouette is mildly enlarged. IMPRESSION: 1. Patchy parenchymal changes throughout the mid to lower lungs bilaterally may be inflammatory or in fectious. A component of edema would not be excluded. 2. Mild cardiomegaly.
--- NOTE | 2022-12-19 16:22 | CT ---
EXAMINATION TYPE: CT brain wo con DATE OF EXAM: 12/19/2022 COMPARISON: 04/01/2013. HISTORY: Altered mental status. CT DLP: 1123.4 mGycm Automated exposure control for dose reduction was used. FINDINGS: There is no acute intracranial hemorrhage, mass, mass effect, midline shift, extra-axial fluid collec tion or hydrocephalus. The mares-white distinction is intact without evidence of an acute major vessel infarct. The visualized paranasal sinuses and mastoid air cells are clear. IMPRESSION: NO ACUTE INTRACRANIAL PROCESS.
[2022-12-19] MEDS ORDERED: LEVOFLOXACIN 500MG-D5W PMX 500 MG in DEXTROSE/WATER 1 100ML.BAG IVPB STA (16:46)
[2022-12-19] MEDS ORDERED: ACETAMINOPHEN TAB 325 MG TAB PO PRN (16:51)
[2022-12-19] MEDS ORDERED: ONDANSETRON 4 MG/2 ML VIAL IVP PRN (16:51)
[2022-12-19] MEDS ORDERED: ALBUTEROL HFA INHALER INHALATION PRN (16:53)
[2022-12-19] MEDS ORDERED: NITROGLYCERIN SL TABS 0.4 MG TAB SUBLINGUAL PRN (16:53)
[2022-12-19] MEDS: INSULIN ASPART (NovoLOG) 100 UNIT/ML VIAL SQ SCH (18:35)
[2022-12-19 18:36] LABS: Glucose,Whole Blood 173 mg/dL (70-110)
[2022-12-19] MEDS: SEVELAMER 800 MG TAB PO SCH (18:36)
[2022-12-19] MEDS: PREGABALIN 100 MG CAP PO SCH (18:36)
[2022-12-19] MEDS: CALCIUM ACETATE 667 MG TAB PO SCH (18:36)
[2022-12-19] MEDS: HYDROcodone/APAP 10-325MG 1 EACH TAB PO PRN ×2 (18:38→23:59)
[2022-12-19] MEDS: MIDODRINE 5 MG TAB PO SCH (21:38)
[2022-12-19] MEDS: CARBIDOPA-LEVODOPA 25-100 MG 1 EACH TAB PO SCH (21:44)
[2022-12-19] MEDS: LEVOTHYROXINE 50 MCG TAB PO SCH (21:44)
[2022-12-19] MEDS: MELATONIN 3 MG TABLET PO SCH (21:45)
[2022-12-19] MEDS: ATORVASTATIN 40 MG TAB PO SCH (21:45)
[2022-12-19] MEDS: FINASTERIDE 5 MG TAB PO SCH (21:45)
[2022-12-19] MEDS: allopurinoL 100 MG TAB PO SCH (21:45)
--- NOTE | 2022-12-19 22:28 | P.HPIM ---
History of Present Illness this is a pleasant 87 yo M with past medical history of Coronary Artery Disease status post stent, Diabetes Mellitus, Hyperlipidemia, Hypertension, Osteoarthritis, parkinson's, hx gout, hx kidney stones, hx migraines, constipation, dialysis started august 2020 on sat,sat,saturday schedule, fistula in left arm december 2020. Status post back surgery with laminectomy and fusion of the lumbar spine Presents because of drowsiness patient was sent from hemodialysis to the hospital. Information was taken from the patient and at bedside. Patient is awake and alert but slightly drowsy, he is improved since admission as per . He slept all the day. He knew he is in the emergency room, he couldn't tell its 8 of 2022 but he could not tell tomorrow or the name of the president. As per patient so he is PCP Dr. Gloria because of his concern of leg pain and numbness Dr. Gloria's which is very Baclofen and he took the first dose yesterday, thinks is due to medication effect. Patient has been complaining of from low back pain and shooting pain in his left leg. Becoming difficult for him to wake up and he could not get out of his bed after he took the medication when his picked him up from hemodialysis he was lightheaded and nervous. However he denies any headache weakness or numbness, no chest pain or dyspnea, no diarrhea or vomiting or abdominal pain, no urinary complaints. No fever. Patient has history of left foot drop and he has 5 back surgeries, his surgeon is Dr. Landa. At baseline patient uses a walker. He is not a smoker no alcohol no illicit drugs. Patient currently is afebrile and rest of vitals are stable as unremarkable CBC, INR, creatinine 3.0. Glucose controlled. Electrolytes and liver enzymes are within the reference range. Ammonia less than 9. Pulmonary negative. 3 viruses are negative including influenza, RSV and covid CT of the brain no ac [place] process. CT of the brain no acute process Review of Systems Review of systems CONSTITUTIONAL: No fever, no malaise, no fatigue. HEENT: No recent visual problems or hearing problems. Denied any sore throat. CARDIOVASCULAR: No orthopnea, PND, no palpitations, no syncope. PULMONARY: No shortness of breath, no cough, no hemoptysis. GASTROINTESTINAL: No diarrhea, no nausea, no vomiting, no abdominal pain. Normoactive bowel sounds. NEUROLOGICAL: No headaches, no weakness, no numbness. HEMATOLOGICAL: Denies any bleeding or petechiae. GENITOURINARY: Denies any burning micturition, frequency, or urgency. MUSCULOSKELETAL/RHEUMATOLOGICAL: Denies any joint pain, swelling, or any muscle pain. ENDOCRINE: Denies any polyuria or polydipsia. Past Medical History Past Medical History: Coronary Artery Disease (CAD), Cancer, Chest Pain / Angina, Diabetes Mellitus, Hyperlipidemia, Hypertension, Osteoarthritis (OA), Prostate Disorder, Renal Disease Additional Past Medical History / Comment(s): parkinson's, hx gout, hx basal cell carcinoma on head, melanoma lt shoulder, hx kidney stones, hx migraines, constipation, dialysis started august 2020 on sat,sat,saturday schedule, fistula in left arm december 2020. History of Any Multi-Drug Resistant Organisms: None Reported, MRSA Date of last positivie culture/infection: 2004 MDRO Source:: rt shoulder Past Surgical History: Back Surgery, Cholecystectomy, Ear Surgery, Heart Catheterization, Heart Catheterization With Stent, Joint Replacement, Orthopedic Surgery, Tonsillectomy Additional Past Surgical History / Comment(s): cody knee replacement, cody. carpal tunnel release, cody shoulder rotator cuff repair, back surgery x5, (laminectomy, laminectomy with fusion, laminectomy and partial removal of fusion x2) lumbar fusionL4,L5, lt ear surgery x3 with replacement malleus/incus/stapes, revision of tympanoplasty, wide excision melanoma left shoulder, I&D rt thumb, lithotripsy,cystoscopy with kidney stone retrieved, cody cataracts, face and left ear multiple lesion removal, oral surgery, one cardiac stent, cody knee arthroscopy, debridement of rt shoulder x 2 with partial closure of rt shoulder, Past Anesthesia/Blood Transfusion Reactions: Family History of Problems w/ Anesthesia Additional Past Anesthesia/Blood Transfusion Reaction / Comment(s): hx vertigo, brother had issues-not sure what it was Date of Last Stent Placement:: 06/2018 Past Psychological History: No Psychological Hx Reported Smoking Status: Never smoker Past Alcohol Use History: None Reported Past Drug Use History: None Reported - Past Family History Mother Family Medical History: Cancer Father Family Medical History: Coronary Artery Disease (CAD), Hypertension Brother(s) Family Medical History: Cancer Sister(s) Family Medical History: Cancer, COPD, Diabetes Mellitus, Hypertension Medications and Allergies Home Medications Medication Instructions Recorded Confirmed Type allopurinoL [Zyloprim] 100 mg PO HS 06/02/16 12/19/22 History Cetirizine HCl [Zyrtec] 10 mg PO DAILY 05/26/18 12/19/22 History Finasteride [Proscar] 5 mg PO HS 05/26/18 12/19/22 History Tamsulosin HCl [Flomax] 0.4 mg PO PC-BRKFST 05/26/18 12/19/22 History Nitroglycerin Sl Tabs [Nitrostat] 0.4 mg SUBLINGUAL Q5M PRN #25 tab 06/04/18 12/19/22 Rx Aspirin 81 mg PO DAILY 07/18/19 12/19/22 History Atorvastatin [Lipitor] 40 mg PO HS 07/18/19 12/19/22 History Carbidopa-Levodopa 25-100 mg 1 tab PO TID 07/18/19 12/19/22 History [Sinemet 25-100 mg] Albuterol Sulfate [Proair Hfa] 2 puff INHALATION RT-Q4H PRN 08/15/20 12/19/22 History Levothyroxine Sodium [Synthroid] 50 mcg PO HS 08/15/20 12/19/22 History Hydrocodone/Acetaminophen [[place] 1 - 2 tab PO Q4HR PRN #18 tab 08/19/20 12/19/22 Rx 10-325] Insulin Aspart [NovoLOG Flexpen] 5 units SQ AC-TID 01/14/22 12/19/22 History Insulin Glargine,Hum.rec.anlog 30 units SQ DAILY 01/14/22 12/19/22 History [[place] Solostar] Isosorbide Mononitrate ER [Imdur] 30 mg PO SUTUTHSA 01/14/22 12/19/22 History Lactulose [Constulose] 30 ml PO DAILY 01/14/22 12/19/22 History Midodrine HCl [ProAmatine] 10 mg PO MOWEFR@0900,2100 01/14/22 12/19/22 History Nephro-Paulo 0.8mg 1 cap PO DAILY 01/14/22 12/19/22 History Pregabalin [Lyrica] 100 mg PO AC-BID 01/14/22 12/19/22 History Sevelamer Carbonate 2,400 mg PO TID 01/14/22 12/19/22 History polyethylene glycoL 3350 [Miralax] 17 gm PO DAILY 01/14/22 12/19/22 History Metoprolol Tartrate [Lopressor] 12.5 mg PO SUTUTHSA@0900 #0 01/19/22 12/19/22 Rx Metoprolol Tartrate [Lopressor] 12.5 mg PO SUTUTHSA@2100 #0 01/19/22 12/19/22 Rx Baclofen 5 mg PO BID@0900,1500 PRN 12/19/22 12/19/22 History Baclofen 10 mg PO HS PRN 12/19/22 12/19/22 History Calcium Acetate [PhosLo] 667 mg PO TID 12/19/22 12/19/22 History Melatonin 3 mg PO HS 12/19/22 12/19/22 History Allergies Allergy/AdvReac Type Severity Reaction Status Date / Time cephalexin [From Keflex] Allergy Itching Verified 12/19/22 15:42 sulfamethoxazole Allergy Itching Verified 12/19/22 15:42 [From Bactrim] trimethoprim [From Bactrim] Allergy Itching Verified 12/19/22 15:42 baclofen AdvReac Severe Nausea & Verified 12/19/22 15:42 Vomiting fentanyl AdvReac Hallucinati Verified 12/19/22 15:42 ons hydromorphone HCl AdvReac Nausea & Verified 12/19/22 15:42 [From Dilaudid] Vomiting morphine AdvReac Hallucinati Verified 12/19/22 15:42 ons vancomycin AdvReac Chills, Verified 12/19/22 15:42 Sweating, Did not feel well Physical Exam Vitals: Vital Signs Temp Pulse Resp BP Pulse Ox 12/19/22 13:56 98.1 F 70 16 129/69 98 Intake and Output 12/19/22 12/19/22 12/19/22 06:59 14:59 22:59 Other: Weight 90.718 kg -GENERAL: The patient is alert and oriented x1-2 partial, not in any acute distress. Well developed, well nourished. Generally weak HEENT: Pupils are round and equally reacting to light. EOMI. No scleral icterus. No conjunctival pallor. Normocephalic, atraumatic. No pharyngeal erythema. No thyromegaly. CARDIOVASCULAR: S1 and S2 present. No murmurs, rubs, or gallops. PULMONARY: Chest is clear to auscultation, no wheezing or crackles. ABDOMEN: Soft, nontender, nondistended, normoactive bowel sounds. No palpable organomegaly. MUSCULOSKELETAL: No joint swelling or deformity. EXTREMITIES: No cyanosis, clubbing, or pedal edema. NEUROLOGICAL: Gross neurological examination did not reveal any focal deficits. SKIN: No rashes. no petechiae. Results CBC & Chem 7: 12/19/22 14:15 12/19/22 14:15 Labs: Abnormal Lab Results - Last 24 Hours (Table) 12/19/22 12/19/22 12/19/22 Range/Units 14:15 14:15 14:44 RBC 3.86 L (4.30-5.90) m/uL Hct 35.9 L (39.0-53.0) % Plt Count 108 L (150-450) k/uL Chloride 93 L (98-107) mmol/L Carbon Dioxide 31 H (22-30) mmol/L BUN 22 H (9-20) mg/dL Creatinine 3.02 H (0.66-1.25) mg/dL Glucose 161 H (74-99) mg/dL POC Glucose (mg/dL) 160 H (70-110) mg/dL Total Protein 8.4 H (6.3-8.2) g/dL Assessment and Plan Assessment: Altered mental status secondary to metabolic/toxic encephalopathy Ongoing back pain Hypertension Hyperlipidemia Diabetes mellitus End-stage renal disease on hemodialysis History of gout Plan: hold baclofen Add lidocaine patch Monitor mentation closely, currently improved and we will keep monitoring Continue with hemodialysis per nephrology Check hemoglobin A1c Check vitamin B12 and TSH Labs and medication were reviewed.. Continue same treatment. Continue with symptomatic treatment. Resume home medication. Monitor labs and vitals. DVT and GI prophylaxis. Further recommendations as per clinical course of the patient DVT prophylaxis: Subcutaneous heparin GI Prophylaxis: Pepcid PT/OT: Pending Prognosis is guarded
[2022-12-20] MEDS: HYDROcodone/APAP 10-325MG 1 EACH TAB PO PRN (05:11)
[2022-12-20 05:40] LABS: Glucose,Whole Blood 209 mg/dL (70-110)
[2022-12-20] MEDS: INSULIN DETEMIR (LEVEMIR) 100 UNIT/ML SYR SQ SCH (07:46)
[2022-12-20] MEDS: INSULIN ASPART (NovoLOG) 100 UNIT/ML VIAL SQ SCH ×3 (07:47→17:15)
[2022-12-20] MEDS: ISOSORBIDE MONONITRATE ER 30 MG TAB.ER.24H PO SCH (07:47)
[2022-12-20] MEDS: METOPROLOL TARTRATE 12.5 MG TAB PO SCH ×2 (07:48→22:25)
[2022-12-20] MEDS: PREGABALIN 100 MG CAP PO SCH ×2 (07:48→17:15)
[2022-12-20] MEDS: CARBIDOPA-LEVODOPA 25-100 MG 1 EACH TAB PO SCH ×3 (07:48→22:24)
[2022-12-20] MEDS: ASPIRIN 81 MG PO SCH (07:48)
[2022-12-20] MEDS: CALCIUM ACETATE 667 MG TAB PO SCH ×3 (07:49→17:15)
[2022-12-20] MEDS: LORATADINE 10 MG TAB PO SCH (07:49)
[2022-12-20] MEDS: SEVELAMER 800 MG TAB PO SCH ×3 (07:49→17:15)
[2022-12-20] MEDS: TAMSULOSIN 0.4 MG CAP.ER.24H PO SCH (07:49)
[2022-12-20] MEDS: ENOXAPARIN 30 MG/0.3 ML SYRINGE SQ SCH (07:49)
[2022-12-20] MEDS: LACTULOSE 20 GM/30 ML CUP PO SCH (07:50)
[2022-12-20] MEDS: polyethylene glycoL 3350 17 GM POWD.PACK PO SCH (07:50)
[2022-12-20] MEDS: FOLIC ACID-VIT B COMPLEX-VIT C 1 CAP PO SCH (07:51)
[2022-12-20] MEDS ORDERED: IOPAMIDOL CONTRAST (ORAL USE) VIAL PO PRN (08:43)
[2022-12-20] MEDS ORDERED: PANTOPRAZOLE 40 MG/10 ML VIAL IV SCH (09:00)
[2022-12-20] MEDS ORDERED: ENOXAPARIN 40 MG/0.4 ML SYRINGE SQ SCH (09:00)
--- NOTE | 2022-12-20 10:00 | P.NPCON ---
History of Present Illness - Reason for Consult end stage renal disease - History of Present Illness Reason for consultation: End-stage renal disease History of present illness: Patient is a 87-year-old male seen in renal consultation for end-stage renal disease. He is maintained on hemodialysis on Saturday schedule. Patient completed his hemodialysis treatment yesterday at his outpatient center. Patient presented to the hospital due to lethargy and weakness. is present at bedside who states that patient took baclofen for the first time Saturday night and has been progressively getting weaker and more lethargic. She states prior to baclofen he was taking Flexeril but was having a hard time getting it filled. She states he is starting to wake up more. Patient does respond to commands. He denies any chest pain or shortness of breath. He is on room air. Blood pressure stable. Brain CT showed no acute intracranial process. No fever or chills. No vomiting or diarrhea. Vital signs are stable. General: No acute distress. HEENT: Head exam is unremarkable. LUNGS: No audible rhonchi or wheezes. HEART: Rate and Rhythm are regular. ABDOMEN: No distention. Nontender. EXTREMITITES: No clubbing, cyanosis, or edema. Past Medical History Past Medical History: Coronary Artery Disease (CAD), Cancer, Chest Pain / Angina, Diabetes Mellitus, Hyperlipidemia, Hypertension, Osteoarthritis (OA), Prostate Disorder, Renal Disease Additional Past Medical History / Comment(s): parkinson's, hx gout, hx basal ce ll carcinoma on head, melanoma lt shoulder, hx kidney stones, hx migraines, constipation, dialysis started august 2020 on sat,sat,saturday schedule, fistula in left arm december 2020. History of Any Multi-Drug Resistant Organisms: None Reported, MRSA Date of last positivie culture/infection: 2004 MDRO Source:: rt shoulder Past Surgical History: Back Surgery, Cholecystectomy, Ear Surgery, Heart Cathet erization, Heart Catheterization With Stent, Joint Replacement, Orthopedic Surgery, Tonsillectomy Additional Past Surgical History / Comment(s): cody knee replacement, cody. carpal tunnel release, cody shoulder rotator cuff repair, back surgery x5, (laminectomy, laminectomy with fusion, laminectomy and partial removal of fusion x2) lumbar fusionL4,L5, lt ear surgery x3 with replacement malleus/incus/stapes, revision of tympanoplasty, wide excision melanoma left shoulder, I&D rt thumb, lithotripsy,cystoscopy with kidney stone retrieved, cody cataracts, face and left ear multiple lesion removal, oral surgery, one cardiac stent, cody knee arthroscopy, debridement of rt shoulder x 2 with partial closure of rt shoulder, Past Anesthesia/Blood Transfusion Reactions: Family History of Problems w/ Anesthesia Additional Past Anesthesia/Blood Transfusion Reaction / Comment(s): hx vertigo, brother had issues-not sure what it was Date of Last Stent Placement:: 06/2018 Past Psychological History: No Psychological Hx Reported Smoking Status: Never smoker Past Alcohol Use History: None Reported Past Drug Use History: None Reported - Past Family History Mother Family Medical History: Cancer Father Family Medical History: Coronary Artery Disease (CAD), Hypertension Brother(s) Family Medical History: Cancer Sister(s) Family Medical History: Cancer, COPD, Diabetes Mellitus, Hypertension Medications and Allergies Home Medications Medication Instructions Recorded Confirmed Type allopurinoL [Zyloprim] 100 mg PO HS 06/02/16 12/19/22 History Cetirizine HCl [Zyrtec] 10 mg PO DAILY 05/26/18 12/19/22 History Finasteride [Proscar] 5 mg PO HS 05/26/18 12/19/22 History Tamsulosin HCl [Flomax] 0.4 mg PO PC-BRKFST 05/26/18 12/19/22 History Nitroglycerin Sl Tabs [Nitrostat] 0.4 mg SUBLINGUAL Q5M PRN #25 tab 06/04/18 12/19/22 Rx Aspirin 81 mg PO DAILY 07/18/19 12/19/22 History Atorvastatin [Lipitor] 40 mg PO HS 07/18/19 12/19/22 History Carbidopa-Levodopa 25-100 mg 1 tab PO TID 07/18/19 12/19/22 History [Sinemet 25-100 mg] Albuterol Sulfate [Proair Hfa] 2 puff INHALATION RT-Q4H PRN 08/15/20 12/19/22 History Levothyroxine Sodium [Synthroid] 50 mcg PO HS 08/15/20 12/19/22 History Hydrocodone/Acetaminophen [[place] 1 - 2 tab PO Q4HR PRN #18 tab 08/19/20 12/19/22 Rx 10-325] Insulin Aspart [NovoLOG Flexpen] 5 units SQ AC-TID 01/14/22 12/19/22 History Insulin Glargine,Hum.rec.anlog 30 units SQ DAILY 01/14/22 12/19/22 History [[place] Wanostcesar] Isosorbide Mononitrate ER [Imdur] 30 mg PO SUTUTHSA 01/14/22 12/19/22 History Lactulose [Constulose] 30 ml PO DAILY 01/14/22 12/19/22 History Midodrine HCl [ProAmatine] 10 mg PO MOWEFR@0900,2100 01/14/22 12/19/22 History Nephro-Paulo 0.8mg 1 cap PO DAILY 01/14/22 12/19/22 History Pregabalin [Lyrica] 100 mg PO AC-BID 01/14/22 12/19/22 History Sevelamer Carbonate 2,400 mg PO TID 01/14/22 12/19/22 History polyethylene glycoL 3350 [Miralax] 17 gm PO DAILY 01/14/22 12/19/22 History Metoprolol Tartrate [Lopressor] 12.5 mg PO SUTUTHSA@0900 #0 01/19/22 12/19/22 Rx Metoprolol Tartrate [Lopressor] 12.5 mg PO SUTUTHSA@2100 #0 01/19/22 12/19/22 Rx Baclofen 5 mg PO BID@0900,1500 PRN 12/19/22 12/19/22 History Baclofen 10 mg PO HS PRN 12/19/22 12/19/22 History Calcium Acetate [PhosLo] 667 mg PO TID 12/19/22 12/19/22 History Melatonin 3 mg PO HS 12/19/22 12/19/22 History Allergies Allergy/AdvReac Type Severity Reaction Status Date / Time cephalexin [From Keflex] Allergy Itching Verified 12/19/22 15:42 sulfamethoxazole Allergy Itching Verified 12/19/22 15:42 [From Bactrim] trimethoprim [From Bactrim] Allergy Itching Verified 12/19/22 15:42 baclofen AdvReac Severe Nausea & Verified 12/19/22 15:42 Vomiting fentanyl AdvReac Hallucinati Verified 12/19/22 15:42 ons hydromorphone HCl AdvReac Nausea & Verified 12/19/22 15:42 [From Dilaudid] Vomiting morphine AdvReac Hallucinati Verified 12/19/22 15:42 ons vancomycin AdvReac Chills, Verified 12/19/22 15:42 Sweating, Did not feel well Physical Exam Vitals: Vital Signs Temp Pulse Pulse Resp BP BP Pulse Ox 12/20/22 06:54 97.5 F L 61 16 126/68 92 L 12/20/22 02:00 98.4 F 60 17 112/55 97 12/19/22 20:00 98.0 F 70 68 17 126/60 144/66 94 L 12/19/22 16:56 97.0 F L 73 18 140/64 95 12/19/22 13:56 98.1 F 70 16 129/69 98 Intake and Output 12/19/22 12/20/22 12/20/22 22:59 06:59 14:59 Output Total 281 Balance -281 Output: Post Void Residual 281 Other: Voiding Method Urinal # Voids 0 Weight 90.718 kg Results - Lab Results Most recent lab results Calcium 9.0 mg/dL (8.4-10.2) 12/19/22 14:15 12/19/22 14:15 12/19/22 14:15 Assessment and Plan Plan: Assessment: 1. End-stage renal disease maintained on hemodialysis on a Saturday schedule. 2. Altered mental status. Possibly related to baclofen. CT of the head negative. 3. 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 4. Diabetes mellitus. Plan: Hemodialysis tomorrow. Avoid baclofen. Follow-up CT of the abdomen and pelvis. Thank you for the consultation. I will continue to follow the patient with you during his hospital stay.
--- NOTE | 2022-12-20 11:20 | CT ---
EXAMINATION TYPE: CT abdomen pelvis wo con DATE OF EXAM: 12/20/2022 COMPARISON: 01/13/2022 HISTORY: abd pain, vomiting CT DLP: 1609.9 mGycm Automated exposure control for dose reduction was used. TECHNIQUE: Helical acquisition of images was performed from the lung bases through the pelvis. FINDINGS: LUNG BASES: Subsegmental consolidation at the lung bases. Coronary artery calcification and cardiomeg verónica noted. Favor atelectasis at the lung bases.. LIVER/GB: Postcholecystectomy changes seen. There may be very mild intrahepatic biliary ductal dilati on compatible with postsurgical findings. PANCREAS: Mild atrophic change of the pancreas SPLEEN: No significant abnormality is seen. ADRENALS: No significant abnormality is seen. KIDNEYS: Kidneys are diminutive in size and no evidence of hydronephrosis or nephrolithiasis. FREE AIR: No free air is visualized ADENOPATHY: None visualized URINARY BLADDER: No significant abnormality is seen. OSSEOUS STRUCTURES: There is postsurgical change involving the lower lumbar spine. Additional multil evel hypertrophic and severe degenerative disc disease. BOWEL: Bowel gas pattern is nonspecific with no obstruction. There is extensive retained fecal debri s throughout the rectum compatible with constipation. Degree of fecal impaction of the rectum not exc luded. OTHER: No sizable free fluid. Prostate gland is enlarged. Vascular phleboliths seen in the pelvis. Ao rta normal caliber with atherosclerotic changes. 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 IMPRESSION: 1. Nonspecific abdominal gas pattern with no obstruction. Correlate for constipation. There may be a mild degree of fecal impaction within the rectum. 2. Postcholecystectomy changes. 3. Bibasilar atelectasis favored over pneumonia 4. Dense coronary artery calcification and cardiomegaly correlate clinically. 5. Prostate hypertrophy. 6. Diminutive kidneys correlate for chronic medical renal disease. 7. 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
[2022-12-20 11:34] LABS: Glucose,Whole Blood 244 mg/dL (70-110)
--- NOTE | 2022-12-20 12:19 | P.PN ---
Subjective this is a pleasant 87 yo M with past medical history of Coronary Artery Disease status post stent, Diabetes Mellitus, Hyperlipidemia, Hypertension, Osteoarthritis, parkinson's, hx gout, hx kidney stones, hx migraines, cons tipation, dialysis started august 2020 on sat,sat,saturday schedule, fistula in left arm december 2020. Status post back surgery with laminectomy and fusion of the lumbar spine Presents because of drowsiness patient was sent from hemodialysis to the hospital. Information was taken from the patient and at bedside. Patient is awake and alert but slightly drowsy, he is improved since admission as per . He slept all the day. He knew he is in the emergency room, he couldn't tell its 2022 but he could not tell tomorrow or the name of the president. As per patient so he is PCP Dr. Gloria because of his concern of leg pain and numbness Dr. Gloria's which is very Baclofen and he took the first dose yesterday, thinks is due to medication effect. Patient has been complaining of from low back pain and shooting pain in his left leg. Becoming difficult for him to wake up and he could not get out of his bed after he took the medication when his picked him up from hemodialysis he was lightheaded and nervous. However he denies any headache weakness or numbness, no chest pain or dyspnea, no diarrhea or vomiting or abdominal pain, no urinary complaints. No fever. Patient has history of left foot drop and he has 5 back surgeries, his surgeon is Dr. Landa. At baseline patient uses a walker. He is not a smoker no alcohol no illicit drugs. Patient currently is afebrile and rest of vitals are stable as unremarkable CBC, INR, creatinine 3.0. Glucose controlled. Electrolytes and liver enzymes are within the reference range. Ammonia less than 9. Pulmonary negative. 3 viruses are negative including influenza, RSV and covid CT of the brain no acute process. CT of the brain no acute process 12/20/2022 patient mentation is improving, he knows in the hospital the date of the name of the president. He looks some malaise though as he was complaining of from significant nausea this morning with periumbilical pain and tenderness. Patient states he didn't have a bowel movement for [address] of the abdomen and pelvis with oral contrast obtained showing nonspecific gas pattern of the colon and possible fecal impaction. Discussed with staff he going to order fecal and about. Zofran is ordered for him. Hemoglobin A1c 8.2 which is not significantly bad for him given his age and comorbidities. His vitamin B12 to 704. He is going to get hemodialysis tomorrow Possible discharge in 2448 hrs. Over Objective - Vital Signs Vital signs: Vital Signs Temp 97.5 F L 12/20/22 06:54 Pulse 61 12/20/22 06:54 Resp 16 12/20/22 06:54 BP 126/68 12/20/22 06:54 Pulse Ox 92 L 12/20/22 06:54 FiO2 Intake & Output 12/19/22 12/20/22 12/20/22 18:59 06:59 18:59 Output Total 281 Balance -281 Weight 90.718 kg 90.718 kg Output: Post Void Residual 281 Other: Voiding Method Urinal # Voids 0 - Exam -GENERAL: The patient is alert and oriented x1-2 partial, not in any acute distress. Well developed, well nourished. Generally weak HEENT: Pupils are round and equally reacting to light. EOMI. No scleral icterus. No conjunctival pallor. Normocephalic, atraumatic. No pharyngeal erythema. No thyromegaly. CARDIOVASCULAR: S1 and S2 present. No murmurs, rubs, or gallops. PULMONARY: Chest is clear to auscultation, no wheezing or crackles. ABDOMEN: Soft, nontender, nondistended, normoactive bowel sounds. No palpable organomegaly. MUSCULOSKELETAL: No joint swelling or deformity. EXTREMITIES: No cyanosis, clubbing, or pedal edema. NEUROLOGICAL: Gross neurological examination did not reveal any focal deficits. SKIN: No rashes. no petechiae. - Labs CBC & Chem 7: 12/19/22 14:15 12/19/22 14:15 Labs: Abnormal Lab Results - Last 24 Hours (Table) 12/19/22 12/19/22 12/19/22 Range/Units 14:15 14:15 14:15 RBC 3.86 L (4.30-5.90) m/uL Hct 35.9 L (39.0-53.0) % Plt Count 108 L (150-450) k/uL Chloride 93 L (98-107) mmol/L Carbon Dioxide 31 H (22-30) mmol/L BUN 22 H (9-20) mg/dL Creatinine 3.02 H (0.66-1.25) mg/dL Glucose 161 H (74-99) mg/dL POC Glucose (mg/dL) (70-110) mg/dL Hemoglobin A1c 8.2 H (0.0-6.0) % Total Protein 8.4 H (6.3-8.2) g/dL 12/19/22 12/19/22 12/20/22 Range/Units 14:44 18:34 05:38 RBC (4.30-5.90) m/uL Hct (39.0-53.0) % Plt Count (150-450) k/uL Chloride (98-107) mmol/L Carbon Dioxide (22-30) mmol/L BUN (9-20) mg/dL Creatinine (0.66-1.25) mg/dL Glucose (74-99) mg/dL POC Glucose (mg/dL) 160 H 173 H 209 H (70-110) mg/dL Hemoglobin A1c (0.0-6.0) % Total Protein (6.3-8.2) g/dL 12/20/22 Range/Units 11:33 RBC (4.30-5.90) m/uL Hct (39.0-53.0) % Plt Count (150-450) k/uL Chloride (98-107) mmol/L Carbon Dioxide (22-30) mmol/L BUN (9-20) mg/dL Creatinine (0.66-1.25) mg/dL Glucose (74-99) mg/dL POC Glucose (mg/dL) 244 H (70-110) mg/dL Hemoglobin A1c (0.0-6.0) % Total Protein (6.3-8.2) g/dL Assessment and Plan Assessment: Altered mental status secondary to metabolic/toxic encephalopathy. Improved Discussed with the staff to give enema 1 we will start Colace Ongoing back pain Hypertension Hyperlipidemia Diabetes mellitus End-stage renal disease on hemodialysis History of gout Plan: hold baclofen Add lidocaine patch Monitor mentation closely, currently improved and we will keep monitoring Continue with hemodialysis per nephrology Check hemoglobin A1c Check vitamin B12 and TSH Labs and medication were reviewed.. Continue same treatment. Continue with symptomatic treatment. Resume home medication. Monitor labs and vitals. DVT and GI prophylaxis. Further recommendations as per clinical course of the patient DVT prophylaxis: Subcutaneous Lovenox GI Prophylaxis: ppi Prognosis is guarded
[2022-12-20] MEDS: DOCUSATE 100 MG CAP PO SCH ×2 (12:26→22:25)
[2022-12-20 14:47] LABS: Appearance,Urine Clear (Clear); Bilirubin,Urine Negative (Negative); Blood,Urine Moderate (Negative); Color,Urine Yellow; Glucose,Urine (UA) 1+ (Negative); Ketones,Urine Negative (Negative); Leukocyte Esterase,Urine Moderate (Negative); Nitrite,Urine Negative (Negative); PH, Urine 5.5 (5.0-8.0); Protein,Urine 2+ (Negative); RBC,Urine 6 /hpf (0-5); Specific Gravity,Urine 1.018 (1.001-1.035); Squamous Epithelial Cell,Urine <1 /hpf (0-4); Urobilinogen,Urine <2.0 mg/dL (<2.0); WBC,Urine 19 /hpf (0-5)
[2022-12-20 20:57] LABS: Glucose,Whole Blood 212 mg/dL (70-110)
[2022-12-20] MEDS: FINASTERIDE 5 MG TAB PO SCH (22:24)
[2022-12-20] MEDS: LEVOTHYROXINE 50 MCG TAB PO SCH (22:24)
[2022-12-20] MEDS: MELATONIN 3 MG TABLET PO SCH (22:24)
[2022-12-20] MEDS: allopurinoL 100 MG TAB PO SCH (22:24)
[2022-12-20] MEDS: ATORVASTATIN 40 MG TAB PO SCH (22:25)
[2022-12-21 05:58] LABS: Glucose,Whole Blood 170 mg/dL (70-110)
[2022-12-21] MEDS: INSULIN ASPART (NovoLOG) 100 UNIT/ML VIAL SQ SCH ×3 (06:55→17:25)
[2022-12-21] MEDS: SEVELAMER 800 MG TAB PO SCH ×3 (06:55→17:25)
[2022-12-21] MEDS: INSULIN DETEMIR (LEVEMIR) 100 UNIT/ML SYR SQ SCH (06:55)
[2022-12-21] MEDS: CALCIUM ACETATE 667 MG TAB PO SCH ×3 (06:55→17:25)
[2022-12-21] MEDS: PANTOPRAZOLE 40 MG TABLET PO SCH (06:56)
[2022-12-21] MEDS: PREGABALIN 100 MG CAP PO SCH ×2 (06:56→17:24)
[2022-12-21] MEDS: LACTULOSE 20 GM/30 ML CUP PO SCH ×4 (08:32→22:38)
[2022-12-21] MEDS: polyethylene glycoL 3350 17 GM POWD.PACK PO SCH (08:32)
[2022-12-21] MEDS: ASPIRIN 81 MG PO SCH (08:32)
[2022-12-21] MEDS: ENOXAPARIN 30 MG/0.3 ML SYRINGE SQ SCH (08:32)
[2022-12-21] MEDS: TAMSULOSIN 0.4 MG CAP.ER.24H PO SCH (08:33)
[2022-12-21] MEDS: FOLIC ACID-VIT B COMPLEX-VIT C 1 CAP PO SCH (08:33)
[2022-12-21] MEDS: DOCUSATE 100 MG CAP PO SCH ×2 (08:33→22:33)
[2022-12-21] MEDS: CARBIDOPA-LEVODOPA 25-100 MG 1 EACH TAB PO SCH ×3 (08:33→22:33)
[2022-12-21] MEDS: MIDODRINE 5 MG TAB PO SCH ×2 (08:33→22:34)
[2022-12-21] MEDS: LORATADINE 10 MG TAB PO SCH (08:33)
[2022-12-21] MEDS: LIDOCAINE 5% PATCH TOPICAL SCH (09:00)
[2022-12-21] MEDS ORDERED: LACTULOSE 20 GM/30 ML CUP PO SCH (09:00)
[2022-12-21] MEDS ORDERED: LACTULOSE 20 GM/30 ML CUP PO ONE (09:00)
[2022-12-21 10:04] LABS: Appearance,Urine Turbid (Clear); Bacteria,Urine Occasional /hpf; Bilirubin,Urine Negative (Negative); Blood,Urine Large (Negative); Color,Urine Light Red; Glucose,Urine (UA) Negative (Negative); Ketones,Urine Negative (Negative); Leukocyte Esterase,Urine Large (Negative); Mucus,Urine Few /hpf; Nitrite,Urine Negative (Negative); Protein,Urine 2+ (Negative); RBC,Urine >182 /hpf (0-5); Squamous Epithelial Cell,Urine 13 /hpf (0-4); Urobilinogen,Urine <2.0 mg/dL (<2.0); WBC,Urine >182 /hpf (0-5)
--- NOTE | 2022-12-21 10:23 | P.PN ---
Subjective Patient is seen in follow-up for end-stage renal disease. Tolerating dialysis well. Mentation improved. No active complaints. present at bedside. Vital signs are stable. General: No acute distress. HEENT: Head exam is unremarkable. LUNGS: No audible rhonchi or wheezes. HEART: Rate and Rhythm are regular. ABDOMEN: Nontender. EXTREMITITES: No edema. Objective - Vital Signs Vital signs: Vital Signs Temp 98.4 F 12/21/22 07:09 Pulse 65 12/21/22 07:09 Resp 17 12/21/22 07:09 BP 97/41 12/21/22 07:09 Pulse Ox 94 L 12/21/22 07:09 FiO2 Intake & Output 12/20/22 12/21/22 12/21/22 18:59 06:59 18:59 Intake Total 540 Output Total 1174 200 150 Balance -634 -200 -150 Intake: Oral 540 Output: Urine 425 200 150 Post Void Residual 749 Other: Voiding Method Indwelling Catheter Indwelling Catheter - Labs CBC & Chem 7: 12/19/22 14:15 12/19/22 14:15 Labs: Abnormal Lab Results - Last 24 Hours (Table) 12/19/22 12/20/22 12/20/22 Range/Units 14:15 11:33 20:56 POC Glucose (mg/dL) 244 H 212 H (70-110) mg/dL Urine Protein 2+ H (Negative) Urine Glucose (UA) 1+ H (Negative) Urine Blood Moderate H (Negative) Ur Leukocyte Esterase Moderate H (Negative) Urine RBC 6 H (0-5) /hpf Urine WBC 19 H (0-5) /hpf Urine WBC Clumps (None) /hpf Ur Squamous Epith Cells (0-4) /hpf Urine Bacteria (None) /hpf Urine Mucus (None) /hpf 12/21/22 12/21/22 Range/Units 05:57 09:05 POC Glucose (mg/dL) 170 H (70-110) mg/dL Urine Protein 2+ H (Negative) Urine Glucose (UA) (Negative) Urine Blood Large H (Negative) Ur Leukocyte Esterase Large H (Negative) Urine RBC >182 H (0-5) /hpf Urine WBC >182 H (0-5) /hpf Urine WBC Clumps Many H (None) /hpf Ur Squamous Epith Cells 13 H (0-4) /hpf Urine Bacteria Occasional H (None) /hpf Urine Mucus Few H (None) /hpf Microbiology - Last 24 Hours (Table) 12/19/22 14:15 Urine Culture - Preliminary Urine,Voided 12/19/22 14:15 Blood Culture - Preliminary Blood No Growth after 24 hours Assessment and Plan Plan: Assessment: 1. End-stage renal disease maintained on hemodialysis on a Saturday schedule. 2. Altered mental status. Possibly related to baclofen. CT of the head negative. Improved. 3. 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 4. Diabetes mellitus. Plan: Currently seen while undergoing hemodialysis. Next treatment on Saturday. Avoid baclofen.
[2022-12-21] MEDS: CAPSAICIN 0.025% CREAM 60 GM TUBE TOPICAL SCH ×4 (10:25→22:38)
[2022-12-21 11:13] LABS: Glucose,Whole Blood 258 mg/dL (70-110)
[2022-12-21 11:14] LABS: Glucose,Whole Blood 203 mg/dL (70-110)
--- NOTE | 2022-12-21 15:21 | US ---
EXAMINATION TYPE: US venous doppler duplex LE LT DATE OF EXAM: 12/21/2022 3:15 PM COMPARISON: NONE CLINICAL HISTORY: 87-year-old male Left leg pain SIDE PERFORMED: left TECHNIQUE: The lower extremity deep venous system is examined utilizing real time linear array sonog nancy with graded compression, doppler sonography and color-flow sonography. FINDINGS: VESSELS IMAGED: Common Femoral Vein Deep Femoral Vein Greater Saphenous Vein * Femoral Vein Popliteal Vein Small Saphenous Vein * Proximal Calf Veins (* superficial vessels) Left Leg: No evidence of acute DVT as visualized IMPRESSION: No evidence for DVT within the left lower extremity imaged from the groin to the upper calf.
[2022-12-21 16:29] LABS: Glucose,Whole Blood 226 mg/dL (70-110)
[2022-12-21 20:55] LABS: Glucose,Whole Blood 228 mg/dL (70-110)
--- NOTE | 2022-12-21 21:40 | P.PN ---
Subjective this is a pleasant 87 yo M with past medical history of Coronary Artery Disease status post stent, Diabetes Mellitus, Hyperlipidemia, Hypertension, Osteoarthritis, parkinson's, hx gout, hx kidney stones, hx migraines, cons tipation, dialysis started august 2020 on sat,sat,saturday schedule, fistula in left arm december 2020. Status post back surgery with laminectomy and fusion of the lumbar spine Presents because of drowsiness patient was sent from hemodialysis to the hospital. Information was taken from the patient and at bedside. Patient is awake and alert but slightly drowsy, he is improved since admission as per . He slept all the day. He knew he is in the emergency room, he couldn't tell its 2022 but he could not tell tomorrow or the name of the president. As per patient so he is PCP Dr. Gloria because of his concern of leg pain and numbness Dr. Gloria's which is very Baclofen and he took the first dose yesterday, thinks is due to medication effect. Patient has been complaining of from low back pain and shooting pain in his left leg. Becoming difficult for him to wake up and he could not get out of his bed after he took the medication when his picked him up from hemodialysis he was lightheaded and nervous. However he denies any headache weakness or numbness, no chest pain or dyspnea, no diarrhea or vomiting or abdominal pain, no urinary complaints. No fever. Patient has history of left foot drop and he has 5 back surgeries, his surgeon is Dr. Landa. At baseline patient uses a walker. He is not a smoker no alcohol no illicit drugs. Patient currently is afebrile and rest of vitals are stable as unremarkable CBC, INR, creatinine 3.0. Glucose controlled. Electrolytes and liver enzymes are within the reference range. Ammonia less than 9. Pulmonary negative. 3 viruses are negative including influenza, RSV and covid CT of the brain no acute process. CT of the brain no acute process 12/20/2022 patient mentation is improving, he knows in the hospital the date of the name of the president. He looks some malaise though as he was complaining of from significant nausea this morning with periumbilical pain and tenderness. Patient states he didn't have a bowel movement for [address] of the abdomen and pelvis with oral contrast obtained showing nonspecific gas pattern of the colon and possible fecal impaction. Discussed with staff he going to order fecal and about. Zofran is ordered for him. Hemoglobin A1c 8.2 which is not significantly bad for him given his age and comorbidities. His vitamin B12 to 704. He is going to get hemodialysis tomorrow Possible discharge in 2448 hrs. 12/21/2022 Patient mentation improved However he still feels generally weak, he was complaining also from left leg pain today different than his sciatic pain therefore we ordered an ultrasound which was negative for DVT, his pain responded to local treatment of rubbing with ointment cream of capsacin, We discontinued Stapleton catheter today and his bladder scan is 106, however repeat urine sample was very suspicious of infection before we started the patient on ceftriaxone and send urine culture. Because of this we held his discharge today and we are going to start antibiotics and monitor him until the culture is back most likely patient has signs symptoms of UTI with metabolic encephalopathy causing him delirium with mentation up and down. Also patient underwent hemodialysis today he still has constipation despite enema, he was placed on Colace and lactulose most likely secondary to his narcotics for his chronic low back pain Regarding his low back pain and patient were instructed to follow up with me in clinic upon discharge and the contact information for Dr. Zuñiga are provided for them and they are in agreement as well Plan of care discussed with at bedside and patient and both they are in agreement Active Medications Generic Name Dose Route Start Last Admin Trade Name Freq PRN Reason Stop Dose Admin Acetaminophen 650 mg 12/19/22 16:51 12/20/22 22:22 Acetaminophen Tab 325 Mg Tab PO 650 mg Q6HR PRN Administration Mild Pain or Fever > 100.5 Hydrocodone Bitart/Acetaminophen 1 each 12/19/22 16:53 12/20/22 05:11 Hydrocodone/Apap 10-325mg 1 Each Tab PO 1 each Q4HR PRN Administration Moderate to Severe Pain (4-10) Albuterol Sulfate 2 puff 12/19/22 16:53 Albuterol Hfa Inhaler INHALATION RT-Q4H PRN Shortness Of Breath Allopurinol 100 mg 12/19/22 21:00 12/20/22 22:24 Allopurinol 100 Mg Tab PO 100 mg HS RUPERTO Administration Aspirin 81 mg 12/20/22 09:00 12/21/22 08:32 Aspirin 81 Mg PO 81 mg DAILY RUPERTO Administration Atorvastatin Calcium 40 mg 12/19/22 21:00 12/20/22 22:25 Atorvastatin 40 Mg Tab PO 40 mg HS RUPERTO Administration Calcium Acetate 667 mg 12/19/22 17:30 12/21/22 17:25 Calcium Acetate 667 Mg Tab PO 667 mg TID-W/MEALS RUPRETO Administration Capsaicin 1 applic 12/21/22 09:00 12/21/22 17:21 Capsaicin 0.025% Cream 60 Gm Tube TOPICAL 1 applic QID [facility] Administration Protocol Carbidopa/Levodopa 1 each 12/19/22 22:00 12/21/22 15:10 Carbidopa-Levodopa 25-100 Mg 1 Each Tab PO 1 each TID [facility] Administration Docusate Sodium 100 mg 12/20/22 12:30 12/21/22 08:33 Docusate 100 Mg Cap PO 12/23/22 12:31 100 mg BID RUPERTO Administration Enoxaparin Sodium 30 mg 12/20/22 09:00 12/21/22 08:32 Enoxaparin 30 Mg/0.3 Ml Syringe SQ 30 mg DAILY RUPERTO Administration Finasteride 5 mg 12/19/22 21:00 12/20/22 22:24 Finasteride 5 Mg Tab PO 5 mg HS [facility] Administration Ceftriaxone Sodium 1 gm/ 50 mls @ 100 mls/hr 12/21/22 18:00 12/21/22 17:42 Sodium Chloride IVPB 100 mls/hr Q12HR [facility] Administration Protocol Insulin Aspart 5 unit 12/19/22 17:30 12/21/22 17:25 Insulin Aspart (Novolog) 100 Unit/Ml Vial SQ 5 unit AC-TID RUPERTO Administration Insulin Detemir 30 unit 12/20/22 07:00 12/21/22 06:55 Insulin Detemir (Levemir) 100 Unit/Ml Syr SQ 30 unit DAILY@0700 [facility] Administration Isosorbide Mononitrate 30 mg 12/20/22 09:00 12/20/22 07:47 Isosorbide Mononitrate Er 30 Mg Tab.Er.24h PO 30 mg SUTUTHSA [facility] Administration Lactulose 30 gm 12/21/22 13:00 12/21/22 17:21 Lactulose 20 Gm/30 Ml Cup PO Not Given QID [facility] Levothyroxine Sodium 50 mcg 12/19/22 21:00 12/20/22 22:24 Levothyroxine 50 Mcg Tab PO 50 mcg HS RUPERTO Administration Lidocaine 2 patch 12/21/22 09:00 12/21/22 09:00 Lidocaine 5% Patch TOPICAL 2 patch DAILY RUPERTO Administration Protocol Loratadine 10 mg 12/20/22 09:00 12/21/22 08:33 Loratadine 10 Mg Tab PO 10 mg DAILY RUPERTO Administration Melatonin 3 mg 12/19/22 21:00 12/20/22 22:24 Melatonin 3 Mg Tablet PO 3 mg HS RUPERTO Administration Metoprolol Tartrate 12.5 mg 12/20/22 09:00 12/20/22 07:48 Metoprolol Tartrate 12.5 Mg Tab PO 12.5 mg SUTUTHSA@0900 RUPERTO Administration Metoprolol Tartrate 12.5 mg 12/20/22 21:00 12/20/22 22:25 Metoprolol Tartrate 12.5 Mg Tab PO 12.5 mg SUTUTHSA@2100 RUPERTO Administration Midodrine 10 mg 12/19/22 21:00 12/21/22 08:33 Midodrine 5 Mg Tab PO 10 mg MOWEFR@0900,2100 RUPERTO Administration Multivit/Ca Carb/B Cmplx/FA/Prenat 1 each 12/20/22 09:00 12/21/22 08:33 Folic Acid-Vit B Complex-Vit C 1 Cap PO 1 each DAILY RUPERTO Administration Nitroglycerin 0.4 mg 12/19/22 16:53 Nitroglycerin Sl Tabs 0.4 Mg Tab SUBLINGUAL Q5M PRN Chest Pain Ondansetron HCl 4 mg 12/19/22 16:51 12/20/22 02:36 Ondansetron 4 Mg/2 Ml Vial IVP 4 mg Q8HR PRN Administration Nausea And Vomiting Pantoprazole Sodium 40 mg 12/21/22 07:30 12/21/22 06:56 Pantoprazole 40 Mg Tablet PO 40 mg AC-BRKFST RUPERTO Administration Polyethylene Glycol 17 gm 12/20/22 09:00 12/21/22 08:32 Polyethylene Glycol 3350 17 Gm Powd.Pack PO 17 gm DAILY RUPERTO Administration Pregabalin 100 mg 12/19/22 17:30 12/21/22 17:24 Pregabalin 100 Mg Cap PO 100 mg AC-BID RUPERTO Administration Sevelamer Carbonate 2,400 mg 12/19/22 17:30 12/21/22 17:25 Sevelamer 800 Mg Tab PO 2,400 mg TID-W/MEALS RUPERTO Administration Tamsulosin HCl 0.4 mg 12/20/22 08:30 12/21/22 08:33 Tamsulosin 0.4 Mg Cap.Er.24h PO 0.4 mg PC-BRKFST RUPERTO Administration Objective - Vital Signs Vital signs: Vital Signs Temp 98.5 F 12/21/22 19:00 Pulse 72 12/21/22 19:00 Resp 16 12/21/22 19:00 BP 96/62 12/21/22 19:00 Pulse Ox 94 L 12/21/22 19:00 FiO2 Intake & Output 12/21/22 12/21/22 12/22/22 06:59 18:59 06:59 Intake Total 400 Output Total 200 2550 Balance -200 -2150 Intake: Hemodialysis 400 Output: Urine 200 150 Hemodialysis 2400 Other: Voiding Method Indwelling Catheter Indwelling Catheter # Bowel Movements 1 - Exam -GENERAL: The patient is alert and oriented x1-2 partial, not in any acute distress. Well developed, well nourished. Generally weak HEENT: Pupils are round and equally reacting to light. EOMI. No scleral icterus. No conjunctival pallor. Normocephalic, atraumatic. No pharyngeal erythema. No thyromegaly. CARDIOVASCULAR: S1 and S2 present. No murmurs, rubs, or gallops. PULMONARY: Chest is clear to auscultation, no wheezing or crackles. ABDOMEN: Soft, nontender, nondistended, normoactive bowel sounds. No palpable organomegaly. MUSCULOSKELETAL: No joint swelling or deformity. EXTREMITIES: No cyanosis, clubbing, or pedal edema. NEUROLOGICAL: Gross neurological examination did not reveal any focal deficits. SKIN: No rashes. no petechiae. - Labs CBC & Chem 7: 12/19/22 14:15 12/19/22 14:15 Labs: Abnormal Lab Results - Last 24 Hours (Table) 12/20/22 12/21/22 12/21/22 Range/Units 16:57 05:57 09:05 POC Glucose (mg/dL) 258 H 170 H (70-110) mg/dL Urine Protein 2+ H (Negative) Urine Blood Large H (Negative) Ur Leukocyte Esterase Large H (Negative) Urine RBC >182 H (0-5) /hpf Urine WBC >182 H (0-5) /hpf Urine WBC Clumps Many H (None) /hpf Ur Squamous Epith Cells 13 H (0-4) /hpf Urine Bacteria Occasional H (None) /hpf Urine Mucus Few H (None) /hpf 12/21/22 12/21/22 12/21/22 Range/Units 11:12 16:27 20:53 POC Glucose (mg/dL) 203 H 226 H 228 H (70-110) mg/dL Urine Protein (Negative) Urine Blood (Negative) Ur Leukocyte Esterase (Negative) Urine RBC (0-5) /hpf Urine WBC (0-5) /hpf Urine WBC Clumps (None) /hpf Ur Squamous Epith Cells (0-4) /hpf Urine Bacteria (None) /hpf Urine Mucus (None) /hpf Microbiology - Last 24 Hours (Table) 12/19/22 14:15 Blood Culture - Preliminary Blood No Growth after 48 hours 12/19/22 14:15 Urine Culture - Preliminary Urine,Voided Assessment and Plan Assessment: Highly suspicious for urinary tract infection Altered mental status secondary to metabolic/toxic encephalopathy. Improved Constipation Ongoing back pain, acute on chronic Hypertension Hyperlipidemia Diabetes mellitus End-stage renal disease on hemodialysis History of gout Plan: Continue ceftriaxone follow-up urine culture hold baclofen Add lidocaine patch for back pain Continue with Colace and lactulose Continue with hemodialysis per nephrology Labs and medication were reviewed.. Continue same treatment. Continue with symptomatic treatment. Resume home medication. Monitor labs and vitals. DVT and GI prophylaxis. Further recommendations as per clinical course of the patient DVT prophylaxis: Subcutaneous Lovenox GI Prophylaxis: ppi Prognosis is guarded
[2022-12-21] MEDS: FINASTERIDE 5 MG TAB PO SCH (22:33)
[2022-12-21] MEDS: MELATONIN 3 MG TABLET PO SCH (22:33)
[2022-12-21] MEDS: LEVOTHYROXINE 50 MCG TAB PO SCH (22:33)
[2022-12-21] MEDS: allopurinoL 100 MG TAB PO SCH (22:33)
[2022-12-21] MEDS: ATORVASTATIN 40 MG TAB PO SCH (22:34)
[2022-12-22 03:34] VITALS: RESP 17
[2022-12-22 06:30] LABS: Glucose,Whole Blood 198 mg/dL (70-110)
[2022-12-22] MEDS: PANTOPRAZOLE 40 MG TABLET PO SCH (06:39)
[2022-12-22] MEDS: PREGABALIN 100 MG CAP PO SCH ×2 (06:39→16:57)
[2022-12-22] MEDS: INSULIN DETEMIR (LEVEMIR) 100 UNIT/ML SYR SQ SCH (06:39)
[2022-12-22] MEDS: SEVELAMER 800 MG TAB PO SCH ×3 (06:39→17:30)
[2022-12-22] MEDS: CALCIUM ACETATE 667 MG TAB PO SCH ×3 (06:39→16:57)
[2022-12-22] MEDS: INSULIN ASPART (NovoLOG) 100 UNIT/ML VIAL SQ SCH ×3 (06:40→16:57)
[2022-12-22] MEDS: METOPROLOL TARTRATE 12.5 MG TAB PO SCH ×2 (08:21→21:18)
[2022-12-22] MEDS: ENOXAPARIN 30 MG/0.3 ML SYRINGE SQ SCH (08:30)
[2022-12-22] MEDS: polyethylene glycoL 3350 17 GM POWD.PACK PO SCH (08:30)
[2022-12-22] MEDS: LACTULOSE 20 GM/30 ML CUP PO SCH ×4 (08:32→21:17)
[2022-12-22] MEDS: TAMSULOSIN 0.4 MG CAP.ER.24H PO SCH (08:34)
[2022-12-22] MEDS: ASPIRIN 81 MG PO SCH (08:34)
[2022-12-22] MEDS: LORATADINE 10 MG TAB PO SCH (08:35)
[2022-12-22] MEDS: DOCUSATE 100 MG CAP PO SCH ×2 (08:35→21:18)
[2022-12-22] MEDS: CARBIDOPA-LEVODOPA 25-100 MG 1 EACH TAB PO SCH ×3 (08:35→21:18)
[2022-12-22] MEDS: LIDOCAINE 5% PATCH TOPICAL SCH (08:36)
[2022-12-22] MEDS: ISOSORBIDE MONONITRATE ER 30 MG TAB.ER.24H PO SCH (08:39)
[2022-12-22] MEDS: FOLIC ACID-VIT B COMPLEX-VIT C 1 CAP PO SCH (08:40)
--- NOTE | 2022-12-22 10:07 | P.PN ---
Subjective Principal diagnosis: An 87-year-old male is known to us with ESRD on dialysis Saturday. He was admitted with confusion after taking baclofen which was discontinued. He was dialyzed yesterday and states he very well and back to normal. He walks usually with a walker Past history significant for coronary artery disease diabetes. Additionally there is some concern for urinary tract infection although he has no symptoms of the same. Urinalysis on admission showed 2+ protein and moderate blood, microscopy was significant for 6 RBCs and 19 WBCs. Urine cultures are negative. 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 Objective - Vital Signs Vital signs: Vital Signs Temp 97.9 F 12/22/22 07:24 Pulse 66 12/22/22 07:24 Resp 17 12/22/22 07:24 BP 93/60 12/22/22 07:24 Pulse Ox 96 12/22/22 07:24 FiO2 Intake & Output 12/21/22 12/22/22 12/22/22 18:59 06:59 18:59 Intake Total 400 Output Total 2550 Balance -2150 Intake: Hemodialysis 400 Output: Urine 150 Hemodialysis 2400 Other: Voiding Method Indwelling Catheter Toilet # Voids 2 # Bowel Movements 1 On examination is awake alert oriented Comfortable sitting in a chair No JVP neck is supple no facial asymmetry Lungs clear to auscultation good air entry bilaterally Heart sounds unremarkable Abdomen soft nontender no suprapubic or renal angle tenderness Extremity exam was no edema Neurologically awake alert oriented but has generalized weakness - Labs CBC & Chem 7: 12/19/22 14:15 12/19/22 14:15 Labs: Abnormal Lab Results - Last 24 Hours (Table) 12/20/22 12/21/22 12/21/22 Range/Units 16:57 09:05 11:12 POC Glucose (mg/dL) 258 H 203 H (70-110) mg/dL Urine Protein 2+ H (Negative) Urine Blood Large H (Negative) Ur Leukocyte Esterase Large H (Negative) Urine RBC >182 H (0-5) /hpf Urine WBC >182 H (0-5) /hpf Urine WBC Clumps Many H (None) /hpf Ur Squamous Epith Cells 13 H (0-4) /hpf Urine Bacteria Occasional H (None) /hpf Urine Mucus Few H (None) /hpf 12/21/22 12/21/22 12/22/22 Range/Units 16:27 20:53 06:29 POC Glucose (mg/dL) 226 H 228 H 198 H (70-110) mg/dL Urine Protein (Negative) Urine Blood (Negative) Ur Leukocyte Esterase (Negative) Urine RBC (0-5) /hpf Urine WBC (0-5) /hpf Urine WBC Clumps (None) /hpf Ur Squamous Epith Cells (0-4) /hpf Urine Bacteria (None) /hpf Urine Mucus (None) /hpf Microbiology - Last 24 Hours (Table) 12/19/22 14:15 Urine Culture - Final Urine,Voided 12/19/22 14:15 Blood Culture - Preliminary Blood No Growth after 48 hours Assessment and Plan Assessment: Impression 1. End-stage renal failure on dialysis Saturday stable 2. Admitted with confusion likely secondary to baclofen. Off of it is doing very well. 3. Possible UTI although cultures are negative so far. He has hematuria and bacteriuria, asymptomatic. Currently on ceftriaxone 1 g every 12. No evidence of any malignancy based on computed tomography scan of the abdomen and pelvis. Likely from prostatism. Recommendation 1. Patient may be discharged on oral antibiotics, although the urine cultures are negative but are not sure of the timing of the antibiotics and timing of the urine culture. 2. We'll continue to follow.
[2022-12-22 11:18] LABS: Glucose,Whole Blood 339 mg/dL (70-110)
--- NOTE | 2022-12-22 13:56 | P.PN ---
Subjective this is a pleasant 87 yo M with past medical history of Coronary Artery Disease status post stent, Diabetes Mellitus, Hyperlipidemia, Hypertension, Osteoarthritis, parkinson's, hx gout, hx kidney stones, hx migraines, cons tipation, dialysis started august 2020 on sat,sat,saturday schedule, fistula in left arm december 2020. Status post back surgery with laminectomy and fusion of the lumbar spine Presents because of drowsiness patient was sent from hemodialysis to the hospital. Information was taken from the patient and at bedside. Patient is awake and alert but slightly drowsy, he is improved since admission as per . He slept all the day. He knew he is in the emergency room, he couldn't tell its 2022 but he could not tell tomorrow or the name of the president. As per patient so he is PCP Dr. Gloria because of his concern of leg pain and numbness Dr. Gloria's which is very Baclofen and he took the first dose yesterday, thinks is due to medication effect. Patient has been complaining of from low back pain and shooting pain in his left leg. Becoming difficult for him to wake up and he could not get out of his bed after he took the medication when his picked him up from hemodialysis he was lightheaded and nervous. However he denies any headache weakness or numbness, no chest pain or dyspnea, no diarrhea or vomiting or abdominal pain, no urinary complaints. No fever. Patient has history of left foot drop and he has 5 back surgeries, his surgeon is Dr. Landa. At baseline patient uses a walker. He is not a smoker no alcohol no illicit drugs. Patient currently is afebrile and rest of vitals are stable as unremarkable CBC, INR, creatinine 3.0. Glucose controlled. Electrolytes and liver enzymes are within the reference range. Ammonia less than 9. Pulmonary negative. 3 viruses are negative including influenza, RSV and covid CT of the brain no acute process. CT of the brain no acute process 12/20/2022 patient mentation is improving, he knows in the hospital the date of the name of the president. He looks some malaise though as he was complaining of from significant nausea this morning with periumbilical pain and tenderness. Patient states he didn't have a bowel movement for [address] of the abdomen and pelvis with oral contrast obtained showing nonspecific gas pattern of the colon and possible fecal impaction. Discussed with staff he going to order fecal and about. Zofran is ordered for him. Hemoglobin A1c 8.2 which is not significantly bad for him given his age and comorbidities. His vitamin B12 to 704. He is going to get hemodialysis tomorrow Possible discharge in 2448 hrs. 12/21/2022 Patient mentation improved However he still feels generally weak, he was complaining also from left leg pain today different than his sciatic pain therefore we ordered an ultrasound which was negative for DVT, his pain responded to local treatment of rubbing with ointment cream of capsacin, We discontinued Stapleton catheter today and his bladder scan is 106, however repeat urine sample was very suspicious of infection before we started the patient on ceftriaxone and send urine culture. Because of this we held his discharge today and we are going to start antibiotics and monitor him until the culture is back most likely patient has signs symptoms of UTI with metabolic encephalopathy causing him delirium with mentation up and down. Also patient underwent hemodialysis today he still has constipation despite enema, he was placed on Colace and lactulose most likely secondary to his narcotics for his chronic low back pain Regarding his low back pain and patient were instructed to follow up with me in clinic upon discharge and the contact information for Dr. Zuñiga are provided for them and they are in agreement as well Plan of care discussed with at bedside and patient and both they are in agreement 12/22/2021 Patient symptoms are improving. He has bowel movement yesterday. His mentation is back to normal. He feels better than when he came in. And his insulin is high after this which has Levemir 25 units and increase his NovoLog 10 units with meals. His repeat bladder scan showed no retention. Urine analysis is suspicious for infection. We have cultures first one is negative, the second culture with significantly abnormal urine analysis is still pending. In the meantime hemiparesis. Patient and at Bedside and Agree to Patient with His Urine Culture Is Finalized. Also his back pain is controlled with lidocaine patch Objective - Vital Signs Vital signs: Vital Signs Temp 97.9 F 12/22/22 07:24 Pulse 66 12/22/22 07:24 Resp 17 12/22/22 07:24 BP 93/60 12/22/22 07:24 Pulse Ox 96 12/22/22 07:24 FiO2 Intake & Output 12/21/22 12/22/22 12/22/22 18:59 06:59 18:59 Intake Total 400 Output Total 2550 Balance -2150 Intake: Hemodialysis 400 Output: Urine 150 Hemodialysis 2400 Other: Voiding Method Indwelling Catheter Toilet # Voids 2 # Bowel Movements 1 - Exam -GENERAL: The patient is alert and oriented x1-2 partial, not in any acute distress. Well developed, well nourished. Generally weak HEENT: Pupils are round and equally reacting to light. EOMI. No scleral icterus. No conjunctival pallor. Normocephalic, atraumatic. No pharyngeal erythema. No thyromegaly. CARDIOVASCULAR: S1 and S2 present. No murmurs, rubs, or gallops. PULMONARY: Chest is clear to auscultation, no wheezing or crackles. ABDOMEN: Soft, nontender, nondistended, normoactive bowel sounds. No palpable organomegaly. MUSCULOSKELETAL: No joint swelling or deformity. EXTREMITIES: No cyanosis, clubbing, or pedal edema. NEUROLOGICAL: Gross neurological examination did not reveal any focal deficits. SKIN: No rashes. no petechiae. - Labs CBC & Chem 7: 12/19/22 14:15 12/19/22 14:15 Labs: Abnormal Lab Results - Last 24 Hours (Table) 12/21/22 12/21/22 12/22/22 Range/Units 16:27 20:53 06:29 POC Glucose (mg/dL) 226 H 228 H 198 H (70-110) mg/dL 12/22/22 Range/Units 11:17 POC Glucose (mg/dL) 339 H (70-110) mg/dL Microbiology - Last 24 Hours (Table) 12/21/22 09:05 Urine Culture - Preliminary Urine,Voided 12/19/22 14:15 Urine Culture - Final Urine,Voided 12/19/22 14:15 Blood Culture - Preliminary Blood No Growth after 48 hours Assessment and Plan Assessment: Urine analysis Highly suspicious for urinary tract infection Altered mental status secondary to metabolic/toxic encephalopathy. Improved Constipation, resolved Ongoing back pain, acute on chronic Hypertension Hyperlipidemia Diabetes mellitus End-stage renal disease on hemodialysis History of gout Plan: Continue ceftriaxone follow-up urine culture hold baclofen Add lidocaine patch for back pain Continue with Colace and lactulose Continue with hemodialysis per nephrology Labs and medication were reviewed.. Continue same treatment. Continue with symptomatic treatment. Resume home medication. Monitor labs and vitals. DVT and GI prophylaxis. Further recommendations as per clinical course of the patient DVT prophylaxis: Subcutaneous Lovenox GI Prophylaxis: ppi Prognosis is guarded
[2022-12-22] MEDS: CAPSAICIN 0.025% CREAM 60 GM TUBE TOPICAL SCH ×4 (15:17→23:23)
[2022-12-22 16:15] LABS: Glucose,Whole Blood 255 mg/dL (70-110)
[2022-12-22] MEDS: LINAGLIPTIN 5 MG TABLET PO SCH (17:30)
[2022-12-22] MEDS: allopurinoL 100 MG TAB PO SCH (21:18)
[2022-12-22] MEDS: MELATONIN 3 MG TABLET PO SCH (21:18)
[2022-12-22] MEDS: ATORVASTATIN 40 MG TAB PO SCH (21:18)
[2022-12-22] MEDS: LEVOTHYROXINE 50 MCG TAB PO SCH (21:18)
[2022-12-22] MEDS: FINASTERIDE 5 MG TAB PO SCH (21:18)
[2022-12-22 21:21] LABS: Glucose,Whole Blood 136 mg/dL (70-110)
[2022-12-23 06:39] LABS: Glucose,Whole Blood 134 mg/dL (70-110)
[2022-12-23] MEDS: INSULIN DETEMIR (LEVEMIR) 100 UNIT/ML SYR SQ SCH (06:57)
[2022-12-23] MEDS: INSULIN ASPART (NovoLOG) 100 UNIT/ML VIAL SQ SCH ×2 (06:58→11:45)
[2022-12-23] MEDS: SEVELAMER 800 MG TAB PO SCH ×2 (06:58→11:45)
[2022-12-23] MEDS: CALCIUM ACETATE 667 MG TAB PO SCH ×2 (06:59→11:45)
[2022-12-23] MEDS: PANTOPRAZOLE 40 MG TABLET PO SCH (06:59)
[2022-12-23] MEDS: PREGABALIN 100 MG CAP PO SCH (06:59)
[2022-12-23 07:35] VITALS: BP 99/51; PULSE 70; TEMP 97.7
[2022-12-23] MEDS: LIDOCAINE 5% PATCH TOPICAL SCH (08:13)
[2022-12-23] MEDS: FOLIC ACID-VIT B COMPLEX-VIT C 1 CAP PO SCH (08:14)
[2022-12-23] MEDS: TAMSULOSIN 0.4 MG CAP.ER.24H PO SCH (08:14)
[2022-12-23] MEDS: ENOXAPARIN 30 MG/0.3 ML SYRINGE SQ SCH (08:14)
[2022-12-23] MEDS: LINAGLIPTIN 5 MG TABLET PO SCH (08:14)
[2022-12-23] MEDS: METOPROLOL TARTRATE 12.5 MG TAB PO SCH ×2 (08:15→10:09)
[2022-12-23] MEDS: polyethylene glycoL 3350 17 GM POWD.PACK PO SCH (08:15)
[2022-12-23] MEDS: LORATADINE 10 MG TAB PO SCH (08:15)
[2022-12-23] MEDS: ASPIRIN 81 MG PO SCH (08:15)
[2022-12-23] MEDS: CARBIDOPA-LEVODOPA 25-100 MG 1 EACH TAB PO SCH (08:15)
[2022-12-23] MEDS: ISOSORBIDE MONONITRATE ER 30 MG TAB.ER.24H PO SCH (08:18)
--- NOTE | 2022-12-23 10:05 | P.PN ---
Subjective Progress Note Date: 12/23/22 Principal diagnosis: An 87-year-old male is known to us with ESRD on dialysis Saturday. He was admitted with confusion after taking baclofen which was discontinued. He states he very well and back to normal. He walks usually with a walker. He denies any complaints at all this morning Blood cultures and urine cultures are negative Past history significant for coronary artery disease diabetes. 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 Mild tremor - Labs CBC & Chem 7: 12/19/22 14:15 12/19/22 14:15 Labs: Abnormal Lab Results - Last 24 Hours (Table) 12/22/22 12/22/22 12/22/22 Range/Units 11:17 16:14 21:20 POC Glucose (mg/dL) 339 H 255 H 136 H (70-110) mg/dL 12/23/22 Range/Units 06:38 POC Glucose (mg/dL) 134 H (70-110) mg/dL Microbiology - Last 24 Hours (Table) 12/21/22 09:05 Urine Culture - Final Urine,Voided 12/19/22 14:15 Blood Culture - Preliminary Blood No Growth after 72 hours Assessment and Plan Assessment: Impression 1. End-stage renal failure on dialysis Saturday stable 2. Admitted with confusion likely secondary to baclofen. Off of it is doing very well. 3. Possible UTI although cultures are negative so far. He has hematuria and bacteriuria, asymptomatic. Currently on ceftriaxone 1 g every 12. No evidence of any malignancy based on computed tomography scan of the abdomen and pelvis. Likely from prostatism. Both urine and blood cultures are negative Recommendation 1. Schedule for dialysis tomorrow if he is not discharged 2. We'll continue to follow.
[2022-12-23] MEDS: CAPSAICIN 0.025% CREAM 60 GM TUBE TOPICAL SCH ×2 (10:09→11:46)
[2022-12-23] MEDS: LACTULOSE 20 GM/30 ML CUP PO SCH ×2 (10:09→11:46)
[2022-12-23] MEDS: DOCUSATE 100 MG CAP PO SCH (10:10)
[2022-12-23 11:21] LABS: Glucose,Whole Blood 165 mg/dL (70-110)
--- NOTE | 2022-12-25 12:15 | P.DS ---
Providers Date of admission: 12/20/22 10:55 Attending physician: Dieudonne Pineda MD Consults: 12/19/22 16:51 Consult Physician Routine Consulting Provider: Ho Gonzales Consult Reason/Comments: ESRF Do you want consulting provider notified?: Yes Primary care physician: Dejan Jed [facility] Course: Diagnoses: Urine analysis Highly suspicious for urinary tract infection Altered mental status secondary to metabolic/toxic encephalopathy.and secondary to backofen which is improved Constipation, resolved Ongoing back pain, acute on chronic Hypertension Hyperlipidemia Diabetes mellitus End-stage renal disease on hemodialysis History of gout Hospital course: this is a pleasant 87 yo M with past medical history of Coronary Artery Disease status post stent, Diabetes Mellitus, Hyperlipidemia, Hypertension, Osteoarthritis, parkinson's, hx gout, hx kidney stones, hx migraines, constipation, dialysis started august 2020 on sat,sat,saturday schedule, fistula in left arm december 2020. Status post back surgery with laminectomy and fusion of the lumbar spine Presents because of drowsiness patient was sent from hemodialysis to the hospital. Patient altered mental status was secondary to baclofen which is discontinued and patient and instructed to avoid it and the [place] and secondary to acute urinary tract infection which is treated, patient finishes treatment of antibiotics upon discharge and back to baseline and no more urinary symptoms and patient does not need antibiotics upon discharge Also his back pain is improved with lidocaine patches and his constipation improved with Colace, sugar is better controlled after changing his Levemir 30 units down to 25 units and adjusted NovoLog 5 units to 10 units with meals. His urinary retention is also improved with the treatment of the UTI, we will check bladder scan was low compared to high number on presentation. And again he does not need antibiotics upon discharge. Other than that patient feels ready to go home today. agree with that at bedside, also I talked to the to monitor his sugar and if run on the low side then she might decrease the NovoLog 10 units with meals and 28 or 7 and she verbalized understanding and acceptance. Manager Cost on the case for hemodialysis Problems and management plan were discussed with the patient and he verbalized understanding and acceptance Patient was found stable and can be discharged home in guarded prognosis however he needs follow-up as an outpatient. Patient was instructed to follow up with PCP Dr. Gloria within one week and patient agrees. Patient also will follow up with his hemodialysis center and bathhouse attendant Physical exam Gen: patient is a AAOx3, no distress CVS: S1-S2, RRR, no murmur Lungs: B/L CTA, no wheezing Abdomen: soft, no distention, no tenderness, positive bowel sounds Extremity: no leg edema or induration Time spent more than 35 minutes Patient Condition at Discharge: Fair Plan - Discharge Summary Discharge Rx Participant: Yes New Discharge Prescriptions: New Docusate [Colace] 100 mg PO BID #60 cap Lidocaine 5% Patch [Lidoderm 5% Patch] 2 patch TOPICAL DAILY #10 patch Linagliptin [Tradjenta] 5 mg PO DAILY #30 tab Capsaicin Cream [Trixaicin Cream] 1 applic TOPICAL QID #1 each Continue allopurinoL [Zyloprim] 100 mg PO HS Cetirizine HCl [Zyrtec] 10 mg PO DAILY Tamsulosin HCl [Flomax] 0.4 mg PO PC-BRKFST Finasteride [Proscar] 5 mg PO HS Nitroglycerin Sl Tabs [Nitrostat] 0.4 mg SUBLINGUAL Q5M PRN #25 tab PRN Reason: Chest Pain Aspirin 81 mg PO DAILY Atorvastatin [Lipitor] 40 mg PO HS Carbidopa-Levodopa 25-100 mg [Sinemet 25-100 mg] 1 tab PO TID Levothyroxine Sodium [Synthroid] 50 mcg PO HS Albuterol Sulfate [Proair Hfa] 2 puff INHALATION RT-Q4H PRN PRN Reason: Shortness Of Breath Hydrocodone/Acetaminophen [[place] 10-325] 1 - 2 tab PO Q4HR PRN #18 tab PRN Reason: Pain Midodrine HCl [ProAmatine] 10 mg PO MOWEFR@0900,2100 Sevelamer Carbonate 2,400 mg PO TID polyethylene glycoL 3350 [Miralax] 17 gm PO DAILY Isosorbide Mononitrate ER [Imdur] 30 mg PO SUTUTHSA Metoprolol Tartrate [Lopressor] 12.5 mg PO SUTUTHSA@0900 #0 Metoprolol Tartrate [Lopressor] 12.5 mg PO SUTUTHSA@2100 #0 Melatonin 3 mg PO HS Lactulose [Constulose] 30 ml PO DAILY Nephro-Paulo 0.8mg 1 cap PO DAILY Pregabalin [Lyrica] 100 mg PO AC-BID Calcium Acetate [PhosLo] 667 mg PO TID Changed Insulin Aspart [NovoLOG Flexpen] 10 units SQ AC-TID #10 ml Insulin Glargine,Hum.rec.anlog [Toujeo Solostar] 25 units SQ DAILY #10 ml Discontinued Baclofen 5 mg PO BID@0900,1500 PRN PRN Reason: Muscle Spasm Baclofen 10 mg PO HS PRN PRN Reason: Muscle Spasm Discharge Medication List allopurinoL [Zyloprim] 100 mg PO HS 06/02/16 [History] Cetirizine HCl [Zyrtec] 10 mg PO DAILY 05/26/18 [History] Finasteride [Proscar] 5 mg PO HS 05/26/18 [History] Tamsulosin HCl [Flomax] 0.4 mg PO PC-BRKFST 05/26/18 [History] Nitroglycerin Sl Tabs [Nitrostat] 0.4 mg SUBLINGUAL Q5M PRN #25 tab 06/04/18 [Rx] Aspirin 81 mg PO DAILY 07/18/19 [History] Atorvastatin [Lipitor] 40 mg PO HS 07/18/19 [History] Carbidopa-Levodopa 25-100 mg [Sinemet 25-100 mg] 1 tab PO TID 07/18/19 [History] Albuterol Sulfate [Proair Hfa] 2 puff INHALATION RT-Q4H PRN 08/15/20 [History] Levothyroxine Sodium [Synthroid] 50 mcg PO HS 08/15/20 [History] Hydrocodone/Acetaminophen [[place] 10-325] 1 - 2 tab PO Q4HR PRN #18 tab 08/19/20 [Rx] Isosorbide Mononitrate ER [Imdur] 30 mg PO SUTUTHSA 01/14/22 [History] Lactulose [Constulose] 30 ml PO DAILY 01/14/22 [History] Midodrine HCl [ProAmatine] 10 mg PO MOWEFR@0900,2100 01/14/22 [History] Nephro-Paulo 0.8mg 1 cap PO DAILY 01/14/22 [History] Pregabalin [Lyrica] 100 mg PO AC-BID 01/14/22 [History] Sevelamer Carbonate 2,400 mg PO TID 01/14/22 [History] polyethylene glycoL 3350 [Miralax] 17 gm PO DAILY 01/14/22 [History] Metoprolol Tartrate [Lopressor] 12.5 mg PO SUTUTHSA@0900 #0 01/19/22 [Rx] Metoprolol Tartrate [Lopressor] 12.5 mg PO SUTUTHSA@2100 #0 01/19/22 [Rx] Calcium Acetate [PhosLo] 667 mg PO TID 12/19/22 [History] Melatonin 3 mg PO HS 12/19/22 [History] Capsaicin Cream [Trixaicin Cream] 1 applic TOPICAL QID #1 each 12/23/22 [Rx] Docusate [Colace] 100 mg PO BID #60 cap 12/23/22 [Rx] Insulin Aspart [NovoLOG Flexpen] 10 units SQ AC-TID #10 ml 12/23/22 [Rx] Insulin Glargine,Hum.rec.anlog [Toujeo Solostar] 25 units SQ DAILY #10 ml 12/23/22 [Rx] Lidocaine 5% Patch [Lidoderm 5% Patch] 2 patch TOPICAL DAILY #10 patch 12/23/22 [Rx] Linagliptin [Tradjenta] 5 mg PO DAILY #30 tab 12/23/22 [Rx] Follow up Appointment(s)/Referral(s): Dejan Adkins MD [Primary Care Provider] - 1-2 days Ho Gonzales DO [STAFF PHYSICIAN] - 1 Week Patient Instructions/Handouts: Weakness (DC) Activity/Diet/Wound Care/Special Instructions: renal diet activity is restricted till you see your doctor Check your glucose 4 times a day before each meal and at bedtime, keep the res ults in a log book and bring it to your doctor on your appointment date If you have glucose less than 70 or more than 400 and call 911 and come to emergency room Discharge Disposition: HOME WITH HOME HEALTH SERVICES
== END 2022-12-23 14:25 | disposition home health service (06) | DRG 689 ==
LOC: EC 13:54 → 5NMEDONC 16:56 → 4SSUR 18:24 → OBSVTOIN 12-20 10:55
PROVIDERS: ADMIT Internal Medicine; ATTEND Internal Medicine
PROC: 5A1D70Z Performance of Urinary Filtration, Intermittent, Less than 6 Hours Per Day (ICD-10-PCS; principal; 2022-12-20)
DX: N39.0 Urinary tract infection, site not specified (principal); G92.8 Other toxic encephalopathy; N18.6 End stage renal disease; I12.0 Hypertensive chronic kidney disease with stage 5 chronic kidney disease or end stage renal disease; G81.90 Hemiplegia, unspecified affecting unspecified side; F05 Delirium due to known physiological condition; R53.83 Other fatigue; T42.8X5A Adverse effect of antiparkinsonism drugs and other central muscle-tone depressants, initial encounter; Y92.009 Unspecified place in unspecified non-institutional (private) residence as the place of occurrence of the external cause; Z99.2 Dependence on renal dialysis; E11.22 Type 2 diabetes mellitus with diabetic chronic kidney disease; E78.5 Hyperlipidemia, unspecified; G89.29 Other chronic pain; K59.00 Constipation, unspecified; X58.XXXA Exposure to other specified factors, initial encounter; M10.9 Gout, unspecified; Z87.440 Personal history of urinary (tract) infections; M19.90 Unspecified osteoarthritis, unspecified site; Z98.1 Arthrodesis status; Z20.822 Contact with and (suspected) exposure to COVID-19; G20 Parkinson's disease; I25.10 Atherosclerotic heart disease of native coronary artery without angina pectoris; I44.7 Left bundle-branch block, unspecified; I70.0 Atherosclerosis of aorta; K59.03 Drug induced constipation; M89.8X9 Other specified disorders of bone, unspecified site; M54.40 Lumbago with sciatica, unspecified side; N40.0 Benign prostatic hyperplasia without lower urinary tract symptoms; Z79.82 Long term (current) use of aspirin; Z79.890 Hormone replacement therapy; Z82.49 Family history of ischemic heart disease and other diseases of the circulatory system; Z85.820 Personal history of malignant melanoma of skin; Z87.442 Personal history of urinary calculi; Z95.5 Presence of coronary angioplasty implant and graft; Z96.653 Presence of artificial knee joint, bilateral; Z98.42 Cataract extraction status, left eye; Z98.41 Cataract extraction status, right eye; Z90.49 Acquired absence of other specified parts of digestive tract; Z88.1 Allergy status to other antibiotic agents; Z88.2 Allergy status to sulfonamides; Z88.8 Allergy status to other drugs, medicaments and biological substances; Z79.899 Other long term (current) drug therapy; Z79.4 Long term (current) use of insulin; E88.2 Lipomatosis, not elsewhere classified; M21.372 Foot drop, left foot; Z88.5 Allergy status to narcotic agent; Z86.14 Personal history of Methicillin resistant Staphylococcus aureus infection
CPT/HCPCS: 36415; 70450; 71045; 74176; 80053; 81001; 82140; 82607; 83036; 84484; 85025; 85610; 85730; 87040; 87086; 87636; 90935; 93005; 96365; 96366; 96375; 99285

== ENCOUNTER 2023-01-31 10:19 | Day surgery (SDC) | payer MEDICARE ==
[2023-01-28 11:39] VITALS: BMI 27.1
[~2023-01-31 10:19] MED LIST changes: -IODINE/POTASS IOD (LUGOLS) BOTTLE TOPICAL ONE; +SODIUM CHLORIDE 0.9% 1,000 ML in EMPTY BAG 1 BAG IV ONE
[2023-01-31] MEDS ORDERED: SODIUM CHLORIDE 0.9% 1,000 ML IV ONE (10:35)
[2023-01-31 10:50] LABS: Glucose,Whole Blood 154 mg/dL (70-110)
[2023-01-31 10:52] VITALS: TEMP 98.2
[2023-01-31 11:08] LABS: Basophils # (A) 0.1 k/uL (0-0.2); Basophils % (A) 1 %; Eosinophils # (A) 0.4 k/uL (0-0.7); Eosinophils % (A) 5 %; HCT 34.2 % (39.0-53.0); HGB 11.8 gm/dL (13.0-17.5); Lymphocytes # (A) 1.7 k/uL (1.0-4.8); Lymphocytes % (A) 22 %; MCH 32.9 pg (25.0-35.0); MCHC 34.6 g/dL (31.0-37.0); MCV 94.9 fL (80.0-100.0); Mean Platelet Volume 9.2; Monocytes # (A) 0.4 k/uL (0-1.0); Monocytes % (A) 6 %; Neutrophils # (A) 5.1 k/uL (1.3-7.7); Neutrophils % (A) 66 %; Platelet Count 147 k/uL (150-450); RBC 3.61 m/uL (4.30-5.90); RDW 12.9 % (11.5-15.5); WBC 7.7 k/uL (3.8-10.6)
[2023-01-31 11:17] LABS: Calcium 8.8 mg/dL (8.4-10.2)
[2023-01-31] MEDS ORDERED: LIDOCAINE 1% INJ 10MG/ML (5 ML VIAL-PF) SQ ONE (12:35)
[2023-01-31] MEDS ORDERED: MIDAZOLAM 2 MG/2 ML VIAL IV ONE (12:39)
[2023-01-31] MEDS ORDERED: IOPAMIDOL-370 100ML BTL INJ ONE (13:05)
[2023-01-31 13:20] VITALS: RESP 16
--- NOTE | 2023-01-31 13:28 | P.OP ---
Date of Procedure: 01/31/23 Preoperative Diagnosis: Stenosis left upper extremity AV fistula. Postoperative Diagnosis: Same. Procedure(s) Performed: 1: Ultrasound-guided cannulation left upper extremity AV fistula. 2: Left upper extremity AV fistulogram. 3: Balloon dilation left upper extremity AV fistula. Implants: None. 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 Because of this the patient is offered fistulogram with intent of percutaneous intervention. The procedure, benefits and risks were discussed with the patient in great detail. All questions were answered to patient's satisfaction. Description of Procedure: Patient brought to the special procedure suite. The left upper extremity sterilely prepped and draped in usual manner. Ultrasound was utilized to identify the upper humeral portion of the AV fistula. 1% Xylocaine was utilized for local anesthesia of the tissues overlying this area. Through this anesthetized area with the aid of ultrasound a multipurpose needle was utilized to cannulate the fistula. Once cannulated a guidewire was advanced through the needle. The needle was withdrawn and a 6-Romanian sheath was placed. Fistulogram was performed with the aid of a comfy catheter. This demonstrated a hemodynamically severe stenosis at the apex of the fistula as it took off from the arterial anastomotic line. This area was crossed with a guidewire and balloon dilated first with a 5 mm drug eluding balloon and finally by 6 and a 7 mm balloon catheter. Completion cystogram demonstrated good response with less than 20% residual stenosis noted. With the above findings noted the sheath was withdrawn and the puncture wound was closed with Prolene suture. Proper dressing was applied. Patient tolerated the procedure well and was taken to the outpatient area in satisfactory and stable condition. Plan - Discharge Summary Discharge Rx Participant: No New Discharge Prescriptions: No Action allopurinoL [Zyloprim] 100 mg PO HS Cetirizine HCl [Zyrtec] 10 mg PO DAILY Tamsulosin HCl [Flomax] 0.4 mg PO PC-BRKFST Finasteride [Proscar] 5 mg PO HS Nitroglycerin Sl Tabs [Nitrostat] 0.4 mg SUBLINGUAL Q5M PRN #25 tab PRN Reason: Chest Pain Aspirin 81 mg PO DAILY Atorvastatin [Lipitor] 40 mg PO HS Carbidopa-Levodopa 25-100 mg [Sinemet 25-100 mg] 1 tab PO TID Levothyroxine Sodium [Synthroid] 50 mcg PO HS Albuterol Sulfate [Proair Hfa] 2 puff INHALATION RT-Q4H PRN PRN Reason: Shortness Of Breath Midodrine HCl [ProAmatine] 10 mg PO MOWEFR@0900,2100 Sevelamer Carbonate 2,400 mg PO TID Isosorbide Mononitrate ER [Imdur] 30 mg PO SUTUTHSA oxyCODONE HCL/ACETAMINOPHEN [oxyCODONE HCL/ACETAMINOPHEN 10-300] 1 tab PO Q6H PRN PRN Reason: Pain Metoprolol Tartrate [Lopressor] 25 mg PO SUTUTHSA Lactulose [Constulose] 30 ml PO DAILY Pregabalin [Lyrica] 100 mg PO BID Insulin Glargine,Hum.rec.anlog [Toujeo Solostar] 30 units SQ QAM Insulin Aspart [NovoLOG Flexpen] 5 units SQ AC-TID Discharge Medication List allopurinoL [Zyloprim] 100 mg PO HS 06/02/16 [History] Cetirizine HCl [Zyrtec] 10 mg PO DAILY 05/26/18 [History] Finasteride [Proscar] 5 mg PO HS 05/26/18 [History] Tamsulosin HCl [Flomax] 0.4 mg PO PC-BRKFST 05/26/18 [History] Nitroglycerin Sl Tabs [Nitrostat] 0.4 mg SUBLINGUAL Q5M PRN #25 tab 06/04/18 [Rx] Aspirin 81 mg PO DAILY 07/18/19 [History] Atorvastatin [Lipitor] 40 mg PO HS 07/18/19 [History] Carbidopa-Levodopa 25-100 mg [Sinemet 25-100 mg] 1 tab PO TID 07/18/19 [History] Albuterol Sulfate [Proair Hfa] 2 puff INHALATION RT-Q4H PRN 08/15/20 [History] Levothyroxine Sodium [Synthroid] 50 mcg PO HS 11/02/20 [History] Isosorbide Mononitrate ER [Imdur] 30 mg PO SUTUTHSA 01/14/22 [History] Lactulose [Constulose] 30 ml PO DAILY 01/14/22 [History] Midodrine HCl [ProAmatine] 10 mg PO MOWEFR@0900,2100 01/14/22 [History] Pregabalin [Lyrica] 100 mg PO BID 01/14/22 [History] Sevelamer Carbonate 2,400 mg PO TID 01/14/22 [History] Insulin Aspart [NovoLOG Flexpen] 5 units SQ AC-TID 01/28/23 [History] Insulin Glargine,Hum.rec.anlog [Toujeo Solostar] 30 units SQ QAM 01/28/23 [History] Metoprolol Tartrate [[facility]ressor] [facility] 01/28/23 [History] oxyCODONE HCL/ACETAMINOPHEN [oxyCODONE HCL/ACETAMINOPHEN 10-300] 1 tab PO Q6H PRN 01/28/23 [History] Follow up Appointment(s)/Referral(s): Asher Alanis DO [Doctor of Osteopathic Medicine] - As Needed () Patient Instructions/Handouts: Fistulogram (DC)
[2023-01-31 13:43] VITALS: BP 144/67; PULSE 63
--- NOTE | 2023-01-31 16:53 | IR ---
EXAMINATION TYPE: IR angio upper extremity LT DATE OF EXAM: 01/31/2023 CLINICAL HISTORY: Failed dialysis TECHNIQUE: Fluoroscopy. COMPARISON: None. FINDINGS: Fluoroscopic guidance was provided during left upper extremity fistulogram procedure perfo rmed by Dr. Alanis. A total of 2 minutes 12 seconds of fluoroscopic time was utilized during the procedure and 195 spot images was acquired. Please refer to procedure note for further details. IMPRESSION: As Above. TOTAL DAP = 1.3936 Gy x cm2
== END 2023-01-31 13:50 | disposition home or self-care (01) ==
LOC: CATHCVL 10:19
PROVIDERS: ATTEND Surgery
DX: T82.858A Stenosis of other vascular prosthetic devices, implants and grafts, initial encounter (principal)
CPT/HCPCS: 36902; 80048; 85025; C1894; C1769 ×3; C1725 ×2; C2623; J2250; J2001; Q9967

== ENCOUNTER 2023-11-28 00:43 | Inpatient (IN) | payer MEDICARE ==
[2023-11-28] MEDS: NITROGLYCERIN SL TABS 0.4 MG TAB SUBLINGUAL STA (01:10)
[2023-11-28 01:16] LABS: Basophils # (A) 0.1 k/uL (0-0.2); Basophils % (A) 1 %; Eosinophils # (A) 0.4 k/uL (0-0.7); Eosinophils % (A) 6 %; HCT 32.1 % (39.0-53.0); HGB 11.9 gm/dL (13.0-17.5); Lymphocytes # (A) 1.3 k/uL (1.0-4.8); Lymphocytes % (A) 21 %; MCH 34.1 pg (25.0-35.0); MCHC 37.2 g/dL (31.0-37.0); MCV 91.8 fL (80.0-100.0); Mean Platelet Volume 9.8; Monocytes # (A) 0.4 k/uL (0-1.0); Monocytes % (A) 6 %; Neutrophils # (A) 4.2 k/uL (1.3-7.7); Neutrophils % (A) 65 %; Platelet Count 114 k/uL (150-450); RDW 13.8 % (11.5-15.5); WBC 6.4 k/uL (3.8-10.6)
[2023-11-28 01:32] LABS: INR 0.9 (<1.2); Partial Thromboplastin Time 23.5 sec (22.0-30.0); Prothrombin Time 10.5 sec (10.0-12.5)
[2023-11-28 01:37] LABS: ALT 11 U/L (4-49); African American GFR (CKD) 12 (>60 ml/min/1.73 sqM); Anion Gap 11 mmol/L; Blood Urea Nitrogen 47 mg/dL (9-20); Calcium 8.4 mg/dL (8.4-10.2); Carbon Dioxide 26 mmol/L (22-30); Chloride 98 mmol/L (98-107); Glucose 261 mg/dL (74-99); Non-African American GFR(CKD) 10 (>60 ml/min/1.73 sqM); Sodium 135 mmol/L (137-145); Total Bilirubin 0.8 mg/dL (0.2-1.3)
[2023-11-28 01:45] LABS: NT-Pro-B-Type Natriuretic Pept 5410 pg/mL
[2023-11-28 01:54] LABS: Magnesium 2.1 mg/dL (1.6-2.3); Potassium 4.5 mmol/L (3.5-5.1)
[2023-11-28 01:55] LABS: AST 38 U/L (17-59); Albumin 4.2 g/dL (3.5-5.0); Alkaline Phosphatase 127 U/L (38-126); Total Protein 6.9 g/dL (6.3-8.2)
[2023-11-28] MEDS: NITROGLYCERIN OINT 1 INCH/GM PACKET TOPICAL SCH (01:55)
[2023-11-28] MEDS ORDERED: NALOXONE 0.4 MG/ML 1 ML VIAL IV PRN (02:02)
[2023-11-28] MEDS ORDERED: ONDANSETRON 4 MG/2 ML VIAL IVP PRN (02:02)
--- NOTE | 2023-11-28 02:02 | XR ---
EXAM: XR Chest, 2 Views CLINICAL HISTORY: ITS.REASON XR Reason: Chest Pain TECHNIQUE: Frontal and lateral views of the chest. COMPARISON: No relevant prior studies available. IMPRESSION: Cardiomegaly. Mild left basilar opacity
--- NOTE | 2023-11-28 02:06 | ED ---
General Adult HPI - General Chief complaint: Chest Pain Stated complaint: CHEST PAIN Time Seen by Provider: 11/28/23 00:44 Source: patient, family, RN notes reviewed, old records reviewed Mode of arrival: EMS Limitations: no limitations - History of Present Illness Initial comments: Patient is an 88-year-old male who presents emergency department complaining of chest pain. Has a history of ESRD on hemodialysis Saturday who had dialysis today. He has a history of CAD with a stent. Has a history of diabetes. Has a history of angina. States that this evening at approximately 10 PM he was having some chest pain with mild numbness of the left arm. Chest pain was across his entire chest. Denies any diaphoresis, nausea, vomiting with it. Denies any radiation of the pain specifically to his left arm. States he took 2 nitro at home which somewhat improved the pain but did not completely work. Received additional nitro from EMS and pain is currently a 3 out of 10. Presents for further evaluation at this time. Is not normally on oxygen. Denies shortness of breath. Has no other acute complaints. States he does not make urine. - Related Data Home Medications Medication Instructions Recorded Confirmed allopurinoL [Zyloprim] 100 mg PO HS 06/02/16 01/31/23 Cetirizine HCl [Zyrtec] 10 mg PO DAILY 05/26/18 01/31/23 Finasteride [Proscar] 5 mg PO HS 05/26/18 01/31/23 Tamsulosin HCl [Flomax] 0.4 mg PO PC-[id number] 05/26/18 01/31/23 Aspirin 81 mg PO DAILY 07/18/19 01/31/23 Atorvastatin [Lipitor] 40 mg PO HS 07/18/19 01/31/23 Carbidopa-Levodopa 25-100 mg 1 tab PO TID 07/18/19 01/31/23 [Sinemet 25-100 mg] Albuterol Sulfate [Proair Hfa] 2 puff INHALATION RT-Q4H PRN 08/15/20 01/28/23 Levothyroxine Sodium [Synthroid] 50 mcg PO HS 08/15/20 01/31/23 Isosorbide Mononitrate ER [Imdur] 30 mg PO SUTUTHSA 01/14/22 01/31/23 Lactulose [Constulose] 30 ml PO DAILY 01/14/22 01/31/23 Midodrine HCl [ProAmatine] 10 mg PO MOWEFR@0900,2100 01/14/22 01/31/23 Pregabalin [Lyrica] 100 mg PO BID 01/14/22 01/31/23 Sevelamer Carbonate 2,400 mg PO TID 01/14/22 01/31/23 Insulin Aspart [NovoLOG Flexpen] 5 units SQ AC-TID 01/28/23 01/31/23 Insulin Glargine,Hum.rec.anlog 30 units SQ QAM 01/28/23 01/31/23 [Toujeo Solostar] Metoprolol Tartrate [Lopressor] 25 mg PO SUTUTHSA 01/28/23 01/31/23 oxyCODONE HCL/ACETAMINOPHEN 1 tab PO Q6H PRN 01/28/23 01/31/23 [oxyCODONE HCL/ACETAMINOPHEN 10-300] Previous Rx's Medication Instructions Recorded Nitroglycerin Sl Tabs [Nitrostat] 0.4 mg SUBLINGUAL Q5M PRN #25 tab 06/04/18 Allergies Allergy/AdvReac Type Severity Reaction Status Date / Time cephalexin [From Keflex] Allergy Itching Verified 01/28/23 11:28 sulfamethoxazole Allergy Itching Verified 01/28/23 11:28 [From Bactrim] trimethoprim [From Bactrim] Allergy Itching Verified 01/28/23 11:28 baclofen AdvReac Severe Nausea & Verified 01/28/23 11:28 Vomiting fentanyl AdvReac Hallucinati Verified 01/28/23 11:28 ons hydromorphone HCl AdvReac Nausea & Verified 01/28/23 11:28 [From Dilaudid] Vomiting morphine AdvReac Hallucinati Verified 01/28/23 11:28 ons vancomycin AdvReac Chills, Verified 01/28/23 11:28 Sweating, Did not feel well Review of Systems ROS Statement: Those systems with pertinent positive or pertinent negative responses have been documented in the HPI. Review of Systems: CONST: Denies fever EYES: Denies blurry vision ENT: Denies nasal congestion C/V: Endorses chest pain RESP: Denies shortness of breath GI: Denies abdominal pain : Denies dysuria SKIN: Denies rash. MSK: Denies joint pain. NEURO: Denies headache ROS Other: All systems not noted in ROS Statement are negative. Past Medical History Past Medical History: Coronary Artery Disease (CAD), Cancer, Chest Pain / Angina, Diabetes Mellitus, Hyperlipidemia, Hypertension, Osteoarthritis (OA), Prostate Disorder, Renal Disease Additional Past Medical History / Comment(s): parkinson's, hx gout, hx basal cell carcinoma on head, melanoma lt shoulder, hx kidney stones, hx migraines, constipation, dialysis started august 2020 on sat,sat,saturday schedule, fistula in left arm december 2020. History of Any Multi-Drug Resistant Organisms: None Reported, MRSA Date of last positivie culture/infection: 2004 MDRO Source:: rt shoulder Past Surgical History: Back Surgery, Cholecystectomy, Ear Surgery, Heart Catheterization, Heart Catheterization With Stent, Joint Replacement, Orthopedic Surgery, Tonsillectomy Additional Past Surgical History / Comment(s): cody knee replacement, cody. carpal tunnel release, cody shoulder rotator cuff repair, back surgery x5, (laminectomy, laminectomy with fusion, laminectomy and partial removal of fusion x2) lumbar fusionL4,L5, lt ear surgery x3 with replacement malleus/incus/stapes, revision of tympanoplasty, wide excision melanoma left shoulder, I&D rt thumb, lithotripsy,cystoscopy with kidney stone retrieved, cody cataracts, face and left ear multiple lesion removal, oral surgery, one cardiac stent, cody knee arthroscopy, debridement of rt shoulder x 2 with partial closure of rt shoulder, Past Anesthesia/Blood Transfusion Reactions: Family History of Problems w/ Anesthesia Additional Past Anesthesia/Blood Transfusion Reaction / Comment(s): hx vertigo, brother had issues-not sure what it was Date of Last Stent Placement:: 06/2018 Past Psychological History: No Psychological Hx Reported Smoking Status: Never smoker Past Alcohol Use History: None Reported Past Drug Use History: None Reported - Past Family History Mother Family Medical History: Cancer Father Family Medical History: Coronary Artery Disease (CAD), Hypertension Brother(s) Family Medical History: Cancer Sister(s) Family Medical History: Cancer, COPD, Diabetes Mellitus, Hypertension General Exam - General Exam Comments Initial Comments: General: Appears in no acute distress. HEAD: Normal with no signs of head trauma. EYES: PERRLA, EOMI, conjunctiva normal, no discharge. ENT: Hearing grossly intact, normal oropharynx. RESPIRATORY: Coarse breath sounds bilaterally. Mild hypoxia on room air to 89 to 90%. C/V: Regular rate and rhythm. S1 and S2 auscultated, mild pitting edema bilatera lly and symmetrical, peripheral pulses 2+ and intact throughout left upper extremity AV fistula has palpable thrill and audible bruit. ABD: Abd is soft, nontender, nondistended EXT: Normal range of motion, no obvious deformity SKIN: No rashes or lesions observed on exposed skin. NEURO: Alert and oriented x 4. Limitations: no limitations Course Vital Signs 11/28/23 11/28/23 11/28/23 00:44 01:21 04:00 Temperature 97.4 F L Pulse Rate 86 76 63 Respiratory 18 16 16 Rate Blood Pressure 108/57 92/50 97/41 O2 Sat by Pulse 90 L 90 L 96 Oximetry Medical Decision Making - Medical Decision Making Was pt. sent in by a medical professional or institution (, PA, SPEECH LANGUAGE SPECIALIST, urgent care, hospital, or fpc...) When possible be specific @ -No Did you speak to anyone other than the patient for history (EMS, parent, family, police, friend...)? What history was obtained from this source @ -No Did you review nursing and triage notes (agree or disagree)? Why? @ -I reviewed and agree with nursing and triage notes Were old charts reviewed (outside hosp., previous admission, EMS record, old EKG, old radiological studies, urgent care reports/EKG's, fpc records)? Report findings @ -Old charts reviewed Differential Diagnosis (chest pain, altered mental status, abdominal pain women, abdominal pain men, vaginal bleeding, weakness, fever, dyspnea, syncope, headache, dizziness, GI bleed, back pain, seizure, CVA, palpatations, mental health, musculoskeletal)? @ -Differential Chest Pain: Stable Angina, Unstable Angina, STEMI, NSTEMI Aortic Dissection, Pneumothorax, Musculoskeletal, Esophageal Spasm GERD, Cholecystitis, Pancreatitis, Zoster, this is not meant to be an all-inclusive list. EKG interpreted by me (3pts min.). @ -As above X-rays interpreted by me (1pt min.). @ -Chest x-ray reveals bilateral pulmonary vascular congestion. Radiology reading a possible left basilar opacity however this does seem to be chronic when compared with prior chest x-rays and I do not believe patient has an infection at this time. CT interpreted by me (1pt min.). @ -None done U/S interpreted by me (1pt. min.). @ -None done What testing was considered but not performed or refused? (CT, X-rays, U/S, labs)? Why? @ -None What meds were considered but not given or refused? Why? @ -None Did you discuss the management of the patient with other professionals (professionals i.e. DrRabia, PA, SPEECH LANGUAGE SPECIALIST, lab, RT, psych nurse, manager social media, elevator examiner and adjuster, teacher, school resource officer, casey saw operator)? Give summary @ -I discussed with Dr. Adkins who accepted the admission. Was smoking cessation discussed for >3mins.? @ -No Was critical care preformed (if so, how long)? @ -Yes, 35 minutes Were there social determinants of health that impacted care today? How? (Homelessness, low income, unemployed, alcoholism, drug addiction, transportation, low edu. Level, literacy, decrease access to med. care, detention, rehab)? @ -No Was there de-escalation of care discussed even if they declined (Discuss DNR or withdrawal of care, Hospice)? DNR status @ -No What co-morbidities impacted this encounter? (DM, HTN, Smoking, COPD, CAD, Cancer, CVA, ARF, Chemo, Hep., AIDS, mental health diagnosis, sleep apnea, morbid obesity)? @ -None Was patient admitted / discharged? Hospital course, mention meds given and route, prescriptions, significant lab abnormalities, going to OR and other pertinent info. @ -Based on the patient's presentation and physical exam, patient presents complaining of chest pain. Patient also found to be mildly hypoxic. Placed on 2 L nasal cannula which seems to improve it. Received dialysis today. Presents for further evaluation. Cardiopulmonary workup will be obtained. Patient already received 324 mg of aspirin from EMS. We will administer an additional nitroglycerin tablet. Additional nitro tablet resolved the patient's chest pain. He was placed on Nitropaste. EKG shows chronic left bundle branch block but no signs of acute ischemia. Chest x-ray shows bilateral pulmonary vascular congestion. Patient has an elevated BUN and creatinine in the setting of CKD. Electrolytes within acceptable limits. Troponin is indeterminate. BNP is elevated to 5400. I discussed the results with the patient. I believe he is likely mildly volume overloaded. In the setting of chest pain. Currently pain-free. Still requiring 2 L of oxygen. Would like to admit the patient. Nephrology will be consulted to evaluate need for dialysis considering patient no longer produces urine and appears mildly volume overloaded. Cardiology will be consulted for the chest pain. Patient was in agreement this plan. I spoke with the admitting physician Dr. Adkins who accepted the admission. Undiagnosed new problem with uncertain prognosis? @ -No Drug Therapy requiring intensive monitoring for toxicity (Heparin, Nitro, Insulin, Cardizem)? @ -No Were any procedures done? @ -No Diagnosis/symptom? @ -Chest pain, acute hypoxia likely secondary to volume overload in the setting of ESRD on hemodialysis Acute, or Chronic, or Acute on Chronic? @ -Acute Uncomplicated (without systemic symptoms) or Complicated (systemic symptoms)? @ -Complicated Side effects of treatment? @ -No Exacerbation, Progression, or Severe Exacerbation? @ -No Poses a threat to life or bodily function? How? (Chest pain, [place], ND, pneumonia, PE, COPD, DKA, ARF, appy, cholecystitis, CVA, Diverticulitis, Homicidal, Suicidal, threat to staff... and all critical care pts) @ -Yes - Lab Data Result diagrams: 11/28/23 01:07 11/28/23 01:07 Lab Results 11/28/23 11/28/23 11/28/23 Range/Units 01:07 01:07 01:07 WBC 6.4 (3.8-10.6) k/uL RBC 3.50 L (4.30-5.90) m/uL Hgb 11.9 L (13.0-17.5) gm/dL Hct 32.1 L (39.0-53.0) % MCV 91.8 (80.0-100.0) fL MCH 34.1 (25.0-35.0) pg MCHC 37.2 H (31.0-37.0) g/dL RDW 13.8 (11.5-15.5) % Plt Count 114 L (150-450) k/uL MPV 9.8 Neutrophils % 65 % Lymphocytes % 21 % Monocytes % 6 % Eosinophils % 6 % Basophils % 1 % Neutrophils # 4.2 (1.3-7.7) k/uL Lymphocytes # 1.3 (1.0-4.8) k/uL Monocytes # 0.4 (0-1.0) k/uL Eosinophils # 0.4 (0-0.7) k/uL Basophils # 0.1 (0-0.2) k/uL PT 10.5 (10.0-12.5) sec INR 0.9 (<1.2) APTT 23.5 (22.0-30.0) sec Sodium 135 L (137-145) mmol/L Potassium 4.5 (3.5-5.1) mmol/L Chloride 98 (98-107) mmol/L Carbon Dioxide 26 (22-30) mmol/L Anion Gap 11 mmol/L BUN 47 H (9-20) mg/dL Creatinine 4.73 H (0.66-1.25) mg/dL Est GFR (CKD-EPI)AfAm 12 (>60 ml/min/1.73 sqM) Est GFR (CKD-EPI)NonAf 10 (>60 ml/min/1.73 sqM) Glucose 261 H (74-99) mg/dL Calcium 8.4 (8.4-10.2) mg/dL Magnesium 2.1 (1.6-2.3) mg/dL Total Bilirubin 0.8 (0.2-1.3) mg/dL AST 38 (17-59) U/L ALT 11 (4-49) U/L Alkaline Phosphatase 127 H (38-126) U/L Troponin I (0.000-0.034) ng/mL NT-Pro-B Natriuret Pep 5410 pg/mL Total Protein 6.9 (6.3-8.2) g/dL Albumin 4.2 (3.5-5.0) g/dL 11/28/23 Range/Units 01:07 WBC (3.8-10.6) k/uL RBC (4.30-5.90) m/uL Hgb (13.0-17.5) gm/dL Hct (39.0-53.0) % MCV (80.0-100.0) fL MCH (25.0-35.0) pg MCHC (31.0-37.0) g/dL RDW (11.5-15.5) % Plt Count (150-450) k/uL MPV Neutrophils % % Lymphocytes % % Monocytes % % Eosinophils % % Basophils % % Neutrophils # (1.3-7.7) k/uL Lymphocytes # (1.0-4.8) k/uL Monocytes # (0-1.0) k/uL Eosinophils # (0-0.7) k/uL Basophils # (0-0.2) k/uL PT (10.0-12.5) sec INR (<1.2) APTT (22.0-30.0) sec Sodium (137-145) mmol/L Potassium (3.5-5.1) mmol/L Chloride (98-107) mmol/L Carbon Dioxide (22-30) mmol/L Anion Gap mmol/L BUN (9-20) mg/dL Creatinine (0.66-1.25) mg/dL Est GFR (CKD-EPI)AfAm (>60 ml/min/1.73 sqM) Est GFR (CKD-EPI)NonAf (>60 ml/min/1.73 sqM) Glucose (74-99) mg/dL Calcium (8.4-10.2) mg/dL Magnesium (1.6-2.3) mg/dL Total Bilirubin (0.2-1.3) mg/dL AST (17-59) U/L ALT (4-49) U/L Alkaline Phosphatase (38-126) U/L Troponin I 0.025 (0.000-0.034) ng/mL NT-Pro-B Natriuret Pep pg/mL Total Protein (6.3-8.2) g/dL Albumin (3.5-5.0) g/dL - EKG Data -: EKG Interpreted by Me EKG Comments: 12-lead Electrocardiogram Interpretation Note EKG was reviewed and interpreted by myself. 12-lead ECG performed at 00 4 5 is interpreted by me as revealing normal sinus rhythm with left bundle branch block which is chronic at a rate of 85 beats per minute. [place] is leftward deviated. [place] interval is 241 ms, QRS duration is 147 ms, QTc is 459 ms.. There were no ST or T wave abnormalities to suggest myocardial ischemia or injury. R wave progression across the precordium was satisfactory. By my interpretation this EKG is non-diagnostic for acute ischemia. Critical Care Time Critical Care Time: Yes Critical Care Time: 35 Disposition Clinical Impression: Chest pain, Hypoxia, ESRD (end stage renal disease) on dialysis Disposition: ADMITTED IP TO THIS HOSP Condition: Stable Time of Disposition: 02:01
[2023-11-28] MEDS: HEPARIN SODIUM 1,000 UN/ML (10ML VL) IV ONE (08:15)
[2023-11-28] MEDS: HEPARIN SOD,PORK IN 0.45% NACL 25,000 UNIT in 0.45% NACL 1 250ML.BAG IV SCH (08:16)
[2023-11-28] MEDS: ASPIRIN 81 MG PO SCH (08:17)
[2023-11-28] MEDS: MIDODRINE 5 MG TAB PO SCH ×2 (08:17→17:41)
[2023-11-28] MEDS ORDERED: HEPARIN SODIUM,PORCINE 5,000 UNIT/ML 1 ML VIAL SQ SCH (09:00)
[2023-11-28 09:17] LABS: Partial Thromboplastin Time 22.8 sec (22.0-30.0); Prothrombin Time 10.8 sec (10.0-12.5)
[2023-11-28 09:24] LABS: Basophils # (A) 0.1 k/uL (0-0.2); Basophils % (A) 1 %; Eosinophils # (A) 0.3 k/uL (0-0.7); Eosinophils % (A) 5 %; HCT 32.1 % (39.0-53.0); HGB 10.8 gm/dL (13.0-17.5); Lymphocytes # (A) 1.2 k/uL (1.0-4.8); Lymphocytes % (A) 17 %; MCH 31.6 pg (25.0-35.0); MCHC 33.6 g/dL (31.0-37.0); Mean Platelet Volume 10.5; Monocytes # (A) 0.4 k/uL (0-1.0); Monocytes % (A) 6 %; Neutrophils # (A) 4.9 k/uL (1.3-7.7); Neutrophils % (A) 70 %; RBC 3.42 m/uL (4.30-5.90); RDW 13.3 % (11.5-15.5)
--- NOTE | 2023-11-28 10:05 | P.HPIM ---
History of Present Illness H&P Date: 11/28/23 HISTORY OF PRESENT ILLNESS 88-year-old male one of my office patient with multiple medical problem was known to have history of chronic kidney disease with end-stage renal disease on hemodialysis 3 times a week, type 2 diabetes with multiple complication, lower back pain post surgery with history of dropping foot has use brace on regular basis, history of gout, history of atherosclerotic heart disease with cardiomyopathy, history of severe BPH, history of chronic pain syndrome has been on narcotic with hydrocodone and fentanyl. History of sepsis in the past along with pyelonephritis. History of chronic arthritis, history of chronic anemia, history of chronic neuropathy. He was seen in the office recently was doing well apparently developed to have slight worsening shortness of breath with chest tightness and pressure for the last 24 hours his symptoms have improved some with nitroglycerin. He developed worsening angina last night around 10:00 symptoms were severe with chest pressure and numbness radiate to his left arm did not have any nausea or vomiting developed mild palpitation mild cold sweat he took 2 nitroglycerin which brought his chest pain slightly only end up calling 911 and had more nitro on the way to the hospital ended up coming to the hospital. Was seen and evaluated in the emergency department His laboratory value shows troponin to be very low his BNP was 5400 EKG showed sinus rhythm with first-degree AV block with slight change in V2 V3 and anteriorly as well. Chest x-ray showed acquired with congestion and fluid overload. Patient be hospitalized to be seen cardiology and probably an echocardiogram to be done she came troponin x 3 will be done as well. Also patient will be seen nephrology for probably urgent cathryn lysis today that he is slightly with fluid overload might have created more trouble with his heart failure causing him to have slight pressure or pain angina. REVIEW OF SYSTEMS Constitutional: No fever, no chills, no night sweats. No weight change. No weakness, fatigue or lethargy. No daytime sleepiness. EENT: No headache. No blurred vision or double vision, no loss of vision. No loss of Hearing, no ringing in the ears, no dizziness. No nasal drainage or congestion. No epistaxis. No sore throat. Lungs: Slight shortness of breath with cough wheezes no sputum production. Cardiovascular: Positive PND orthopnea palpitations positive angina mild li ghtheadedness with chest pain and pressure slight shortness of breath.. Abdominal: No abdominal pain but nausea without vomiting vomiting no diarrhea positive constipation no tarry stool but positive lack of appetite. Genitourinary: End-stage renal disease on hemodialysis, patient had recurrent UTI and recurrent urinary retention. Musculoskeletal: No myalgias. No muscle weakness, no gait dysfunction, no frequent falls. No back pain. No neck pain. Integumentary: No wounds, no lesions. No rash or pruritus. No unusual bruising. No change in hair or nails. Neurologic: No aphasia. No facial droop. No change in mentation. No head injury. No headache. No paralysis. Positive dropping foot on the left side Psychiatric: No depression. No anxiety. No mood swings. Endocrine: No abnormal blood sugars. No weight change. No excessive sweating or thirst. No cold intolerance. SOCIAL HISTORY Patient does not smoke, no code abuse, no marijuana use, is and lives with his . Patient is going to dialysis 3 times a week, he is a brace on his like for dropping foot especially the left side, walk with a cane and walker. FAMILY HISTORY Patient has 2 children both had MD in the past. Patient had 10 siblings 3 still living with history of CAD, 7 past from coronary artery disease and cancer. His mother age 86 from uterine cancer, father age 59 from MD. PHYSICAL EXAMINATION Gen: This is elderly well-developed laying in bed does not look in any respiratory distress. HEENT: Head is atraumatic, normocephalic. Pupils equal, round. Sclerae is anicteric. NECK: Supple. No JVD. No lymphadenopathy. No thyromegaly. LUNGS: Decreased breath some relative fine rhonchi no crackles or wheezes. HEART: Regular rate and rhythm. S1, S2, positive JVD and positive systolic murmur. ABDOMEN: No abdominal pain or tenderness no rebound or rigidity. EXTREMITIES: No pedal edema. No calf tenderness. NEUROLOGICAL: Patient is awake, alert and oriented x3. Cranial nerves 2 through 12 are grossly intact. Positive dropping foot in the left side. ASSESSMENT AND PLAN 1. Chest pain and angina: Most likely related by fluid overload with history of atherosclerotic heart disease and significant cardiomyopathy, patient will be hospitalized seen by cardiology and CT with troponin will be done echocardiogram watch symptoms carefully and still plan to do hemodialysis to reduce the tension on his heart failure and probably that would help his angina. 2 fluid overload and congestive heart failure: Hemodialysis Resume his meds including his diuretics patient is not making any urine at this point which would not be a major help. 3 cardiomyopathy: Patient will be continue on current diuretics and readjust his medication accordingly has been doing very well with dialysis this last year hardly required to be hospitalized or seen in the emergency room. 4 diastolic congestive heart failure: Patient has been on medical management with furosemide 40 mg twice a day, nitro, lisinopril and metoprolol. Patient Lasix will be held for now also hold his lisinopril. Take away. 5 type 2 diabetes: Resume his insulin with Accu-Cheks sliding scale coverage his last A1c has been around 7. 6 Parkinson disease: Has been doing very well on Carbidopa-levodopa which we will resume his medication. 7 severe neuropathy: Has been on Lyrica 100 mg twice a day. 8 atherosclerotic heart disease: Continue medical management no invasive procedure patient seen cardiology regularly. 9 Parkinson disease and tremor: Continue patient on Sinemet 3 times a day along with repeat a pro-. 10 gout: Patient remain on allopurinol 100 mg a day. 11 BPH: Continue to watch for any urinary retention patient remain on Low-Dose and Add Finasteride Has Been Seen Urology Regularly. 12 Arrhythmia with Mild Tachycardia None A. fib Base: Patient Remain on Metoprolol 25 Mg Twice a Day. 13 GI prophylaxis: Continue patient on pantoprazole. 14 DVT prophylaxis: Knee-high ALVARO hose and early mobilization. CODE STATUS: Full code. Patient will be admitted to the hospital for a minimum of 2 night stay. Past Medical History Past Medical History: Coronary Artery Disease (CAD), Cancer, Chest Pain / Angina, Diabetes Mellitus, Hyperlipidemia, Hypertension, Osteoarthritis (OA), Prostate Disorder, Renal Disease Additional Past Medical History / Comment(s): parkinson's, hx gout, hx basal cell carcinoma on head, melanoma lt shoulder, hx kidney stones, hx migraines, constipation, dialysis started august 2020 on sat,sat,saturday schedule, fistula in left arm december 2020. History of Any Multi-Drug Resistant Organisms: None Reported, MRSA Date of last positivie culture/infection: 2004 MDRO Source:: rt shoulder Past Surgical History: Back Surgery, Cholecystectomy, Ear Surgery, Heart Catheterization, Heart Catheterization With Stent, Joint Replacement, Orthopedic Surgery, Tonsillectomy Additional Past Surgical History / Comment(s): ocdy knee replacement, cody. carpal tunnel release, cody shoulder rotator cuff repair, back surgery x5, (laminectomy, laminectomy with fusion, laminectomy and partial removal of fusion x2) lumbar fusionL4,L5, lt ear surgery x3 with replacement malleus/incus/stapes, revision of tympanoplasty, wide excision melanoma left shoulder, I&D rt thumb, l ithotripsy,cystoscopy with kidney stone retrieved, cody cataracts, face and left ear multiple lesion removal, oral surgery, one cardiac stent, cody knee arthroscopy, debridement of rt shoulder x 2 with partial closure of rt shoulder, Past Anesthesia/Blood Transfusion Reactions: Family History of Problems w/ Anesthesia Additional Past Anesthesia/Blood Transfusion Reaction / Comment(s): hx vertigo, brother had issues-not sure what it was Date of Last Stent Placement:: 06/2018 Past Psychological History: No Psychological Hx Reported Smoking Status: Never smoker Past Alcohol Use History: None Reported Past Drug Use History: None Reported - Past Family History Mother Family Medical History: Cancer Father Family Medical History: Coronary Artery Disease (CAD), Hypertension Brother(s) Family Medical History: Cancer Sister(s) Family Medical History: Cancer, COPD, Diabetes Mellitus, Hypertension Medications and Allergies Home Medications Medication Instructions Recorded Confirmed Type allopurinoL [Zyloprim] 100 mg PO HS 06/02/16 01/31/23 History Cetirizine HCl [Zyrtec] 10 mg PO DAILY 05/26/18 01/31/23 History Finasteride [Proscar] 5 mg PO HS 05/26/18 01/31/23 History Tamsulosin HCl [Flomax] 0.4 mg PO PC-BRKFST 05/26/18 01/31/23 History Nitroglycerin Sl Tabs [Nitrostat] 0.4 mg SUBLINGUAL Q5M PRN #25 tab 06/04/18 01/28/23 Rx Aspirin 81 mg PO DAILY 07/18/19 01/31/23 History Atorvastatin [Lipitor] 40 mg PO HS 07/18/19 01/31/23 History Carbidopa-Levodopa 25-100 mg 1 tab PO TID 07/18/19 01/31/23 History [Sinemet 25-100 mg] Albuterol Sulfate [Proair Hfa] 2 puff INHALATION RT-Q4H PRN 08/15/20 01/28/23 History Levothyroxine Sodium [Synthroid] 50 mcg PO HS 08/15/20 01/31/23 History Isosorbide Mononitrate ER [Imdur] 30 mg PO SUTUTHSA 01/14/22 01/31/23 History Lactulose [Constulose] 30 ml PO DAILY 01/14/22 01/31/23 History Midodrine HCl [ProAmatine] 10 mg PO MOWEFR@0900,2100 01/14/22 01/31/23 History Pregabalin [Lyrica] 100 mg PO BID 01/14/22 01/31/23 History Sevelamer Carbonate 2,400 mg PO TID 01/14/22 01/31/23 History Insulin Aspart [NovoLOG Flexpen] 5 units SQ AC-TID 01/28/23 01/31/23 History Insulin Glargine,Hum.rec.anlog 30 units SQ QAM 01/28/23 01/31/23 History [Charlotte Ledesma] Metoprolol Tartrate [Lopressor] 25 mg PO SUTUTHSA 01/28/23 01/31/23 History oxyCODONE HCL/ACETAMINOPHEN 1 tab PO Q6H PRN 01/28/23 01/31/23 History [oxyCODONE HCL/ACETAMINOPHEN 10-300] Allergies Allergy/AdvReac Type Severity Reaction Status Date / Time cephalexin [From Keflex] Allergy Itching Verified 01/28/23 11:28 sulfamethoxazole Allergy Itching Verified 01/28/23 11:28 [From Bactrim] trimethoprim [From Bactrim] Allergy Itching Verified 01/28/23 11:28 baclofen AdvReac Severe Nausea & Verified 01/28/23 11:28 Vomiting fentanyl AdvReac Hallucinati Verified 01/28/23 11:28 ons hydromorphone HCl AdvReac Nausea & Verified 01/28/23 11:28 [From Dilaudid] Vomiting morphine AdvReac Hallucinati Verified 01/28/23 11:28 ons vancomycin AdvReac Chills, Verified 01/28/23 11:28 Sweating, Did not feel well Physical Exam Vitals: Vital Signs Temp Pulse Resp BP Pulse Ox 11/28/23 04:00 63 16 97/41 96 11/28/23 01:21 76 16 92/50 90 L 11/28/23 00:44 97.4 F L 86 18 108/57 90 L Intake and Output 11/27/23 11/27/23 11/28/23 14:59 22:59 06:59 Other: Weight 97.522 kg Results CBC & Chem 7: 11/28/23 01:07 11/28/23 01:07 Labs: Abnormal Lab Results - Last 24 Hours (Table) 11/28/23 11/28/23 Range/Units 01:07 01:07 RBC 3.50 L (4.30-5.90) m/uL Hgb 11.9 L (13.0-17.5) gm/dL Hct 32.1 L (39.0-53.0) % MCHC 37.2 H (31.0-37.0) g/dL Plt Count 114 L (150-450) k/uL Sodium 135 L (137-145) mmol/L BUN 47 H (9-20) mg/dL Creatinine 4.73 H (0.66-1.25) mg/dL Glucose 261 H (74-99) mg/dL Alkaline Phosphatase 127 H (38-126) U/L
[2023-11-28 10:07] LABS: Platelet Count 99 k/uL (150-450)
--- NOTE | 2023-11-28 10:29 | P.CRDCN ---
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 He has a past medical history of end-stage renal disease on hemodialysis Saturday, hypertension, hyperlipidemia, coronary artery disease. Patient states he had previous stenting done on his heart in [place]. We have been asked to evaluate the patient for chest pain. Patient presented to hospital due to chest pain that started last evening around 10 PM along with numbness in the left arm. Pain was across the upper anterior chest. No nausea or vomiting. Patient took 2 nitroglycerin at home with some end of the pain. No shortness of breath. Patient is seen today in the emergency center waiting for a bed on the cardiac stepdown unit. EKG sinus rhythm with left bundle branch block. Chest x-ray: Mild left basilar opacity. WBC 7, hemoglobin 10.8, platelet count 114. INR 1. Troponin 0.025, 0.06, 0.106. Sodium 135, potassium 4.5, BUN 47 creatinine 4.73. Blood sugar 261. Magnesium 2.1, alkaline phosphatase 127 otherwise liver function test are normal Home cardiac medications: Aspirin 81 mg daily, atorvastatin 40 mg daily, Lopressor 25 mg Saturday twice daily, Nitrostat as needed, patient also on levothyroxine 50 mcg at bedtime Echocardiogram performed 08/17/2020 revealed moderate concentric left hypertrophy, EF 55-60, mild aortic valve sclerosis, mild aortic regurgitation. Mild tricuspid regurgitation, mild pulm hypertension. Review Of Systems: At the time of my exam: CONSTITUTIONAL: Denies fever or chills. HEENT: Denies blurred vision, vision changes, or eye pain. Denies hemoptysis CARDIOVASCULAR: Denies chest pain. Denies orthopnea. Denies PND. Denies palpitations RESPIRATORY: Denies shortness of breath. GASTROINTESTINAL: Denies abdominal pain. Denies nausea or vomiting. HEMATOLOGIC: Denies bleeding disorders. GENITOURINARY: Denies any blood in urine. SKIN: Denies pruitis. Denies rash. Physical examination: Gen: This is an 88-year-old male in no acute distress. VS: reviewed blood pressure 86/45, heart rate 64. HEENT: Head is atraumatic, normocephalic. Pupils equal, round. Sclerae is anicteric. NECK: Supple. No JVD. LUNGS: Clear to auscultation. No wheezes or rhonchi. No intercostal retractions. HEART: Regular rate and rhythm. 4/6 systolic ejection murmur parasternal area. ABDOMEN: Soft No tenderness. EXTREMITIES: No pedal edema. No calf tenderness. NEUROLOGICAL: Patient is awake, alert and oriented x3. Assessment: Non-ST elevated myocardial infarction History of coronary artery disease with previous stenting End-stage renal disease on hemodialysis Hyperlipidemia Hypertension, currently hypotensive Remote history of tobacco use Plan: Resume patient's home cardiac medications: Aspirin, atorvastatin Hold blood pressure medications due to hypotension Schedule patient for cardiac catheterization tomorrow with Dr. Jose Negro Start patient on midodrine 5 mg 3 times daily Obtain 2-D echocardiogram and Doppler study to assess cardiac structure and function Further recommendations to follow based upon clinical course Thank you kindly for this consultation. Nurse practitioner note has been reviewed, I agree with documented findings and plan of care. Patient was seen and examined. Past Medical History Past Medical History: Coronary Artery Disease (CAD), Cancer, Chest Pain / Angina, Diabetes Mellitus, Hyperlipidemia, Hypertension, Osteoarthritis (OA), Prostate Disorder, Renal Disease Additional Past Medical History / Comment(s): parkinson's, hx gout, hx basal cell carcinoma on head, melanoma lt shoulder, hx kidney stones, hx migraines, constipation, dialysis started august 2020 on sat,sat,saturday schedule, fistula in left arm december 2020. History of Any Multi-Drug Resistant Organisms: None Reported, MRSA Date of last positivie culture/infection: 2004 MDRO Source:: rt shoulder Past Surgical History: Back Surgery, Cholecystectomy, Ear Surgery, Heart Catheterization, Heart Catheterization With Stent, Joint Replacement, Orthopedic Surgery, Tonsillectomy Additional Past Surgical History / Comment(s): cody knee replacement, cody. carpal tunnel release, cody shoulder rotator cuff repair, back surgery x5, (laminectomy, laminectomy with fusion, laminectomy and partial removal of fusion x2) lumbar fusionL4,L5, lt ear surgery x3 with replacement malleus/incus/stapes, revision of tympanoplasty, wide excision melanoma left shoulder, I&D rt thumb, lithotripsy,cystoscopy with kidney stone retrieved, cody cataracts, face and left ear multiple lesion removal, oral surgery, one cardiac stent, cody knee arthroscopy, debridement of rt shoulder x 2 with partial closure of rt shoulder, Past Anesthesia/Blood Transfusion Reactions: Family History of Problems w/ Anesthesia Additional Past Anesthesia/Blood Transfusion Reaction / Comment(s): hx vertigo, brother had issues-not sure what it was Date of Last Stent Placement:: 06/2018 Past Psychological History: No Psychological Hx Reported Smoking Status: Never smoker Past Alcohol Use History: None Reported Past Drug Use History: None Reported - Past Family History Mother Family Medical History: Cancer Father Family Medical History: Coronary Artery Disease (CAD), Hypertension Brother(s) Family Medical History: Cancer Sister(s) Family Medical History: Cancer, COPD, Diabetes Mellitus, Hypertension Medications and Allergies Home Medications Medication Instructions Recorded Confirmed Type allopurinoL [Zyloprim] 100 mg PO HS 06/02/16 11/28/23 History Cetirizine HCl [Zyrtec] 10 mg PO DAILY 05/26/18 11/28/23 History Finasteride [Proscar] 5 mg PO HS 05/26/18 11/28/23 History Tamsulosin HCl [Flomax] 0.4 mg PO PC-BRKFST 05/26/18 11/28/23 History Nitroglycerin Sl Tabs [Nitrostat] 0.4 mg SUBLINGUAL Q5M PRN #25 tab 06/04/18 11/28/23 Rx Aspirin 81 mg PO DAILY 07/18/19 11/28/23 History Atorvastatin [Lipitor] 40 mg PO HS 07/18/19 11/28/23 History Carbidopa-Levodopa 25-100 mg 1 tab PO QID 07/18/19 11/28/23 History [Sinemet 25-100 mg] Albuterol Sulfate [Proair Hfa] 2 puff INHALATION RT-Q4H PRN 08/15/20 11/28/23 History Levothyroxine Sodium [Synthroid] 50 mcg PO HS 08/15/20 11/28/23 History Isosorbide Mononitrate ER [Imdur] 30 mg PO SUTUTHSA 01/14/22 11/28/23 History Lactulose [Constulose] 30 ml PO DAILY 01/14/22 11/28/23 History Midodrine HCl [ProAmatine] 10 mg PO TID 01/14/22 11/28/23 History Pregabalin [Lyrica] 100 mg PO BID 01/14/22 11/28/23 History Sevelamer Carbonate 2,400 mg PO TID-W/MEALS 01/14/22 11/28/23 History Insulin Aspart [NovoLOG Flexpen] 5 units SQ AC-TID 01/28/23 11/28/23 History Insulin Glargine,Hum.rec.anlog 25 units SQ DAILY 01/28/23 11/28/23 History [Toujeo Solostar] Metoprolol Tartrate [Lopressor] 25 mg PO SUTUTHSA@0900,2100 01/28/23 11/28/23 History Calcium Acetate [Phoslo] 1,334 mg PO DAILY PRN 11/28/23 11/28/23 History Calcium Acetate [Phoslo] 667 mg PO TID-W/MEALS 11/28/23 11/28/23 History Cyclobenzaprine [Flexeril] 10 mg PO DAILY PRN 11/28/23 11/28/23 History Folic Acid/Vit B Complex and C 0.8 mg PO W/SUPPER 11/28/23 11/28/23 History [Nephro-Paulo Tablet] HYDROcodone/APAP 10-325MG [Melvin 1 tab PO Q4HR PRN 11/28/23 11/28/23 History 10-325] Insulin Aspart [NovoLOG Flexpen] See Protocol SQ AC-TID 11/28/23 11/28/23 History Melatonin 3 mg PO HS 11/28/23 11/28/23 History polyethylene glycoL 3350 [Miralax] 17 gm PO DAILY 11/28/23 11/28/23 History Allergies Allergy/AdvReac Type Severity Reaction Status Date / Time cephalexin [From Keflex] Allergy Itching Verified 11/28/23 08:38 sulfamethoxazole Allergy Itching Verified 11/28/23 08:38 [From Bactrim] trimethoprim [From Bactrim] Allergy Itching Verified 11/28/23 08:38 baclofen AdvReac Severe Nausea & Verified 11/28/23 08:38 Vomiting fentanyl AdvReac Hallucinati Verified 11/28/23 08:38 ons hydromorphone HCl AdvReac Nausea & Verified 11/28/23 08:38 [From Dilaudid] Vomiting morphine AdvReac Hallucinati Verified 11/28/23 08:38 ons vancomycin AdvReac Chills, Verified 11/28/23 08:38 Sweating, Did not feel well Physical Exam Vitals: Vital Signs Temp Pulse Resp BP Pulse Ox 11/28/23 06:00 62 16 92/47 99 11/28/23 04:00 63 16 97/41 96 11/28/23 01:21 76 16 92/50 90 L 11/28/23 00:44 97.4 F L 86 18 108/57 90 L Intake and Output 11/27/23 11/28/23 11/28/23 22:59 06:59 14:59 Other: Weight 97.522 kg Results 11/28/23 08:12 11/28/23 01:07 Cardiac Enzymes 11/28/23 11/28/23 11/28/23 Range/Units 01:07 01:07 03:47 AST 38 (17-59) U/L Troponin I 0.025 0.060 H* (0.000-0.034) ng/mL 11/28/23 Range/Units 06:40 AST (17-59) U/L Troponin I 0.106 H* (0.000-0.034) ng/mL Coagulation 11/28/23 Range/Units 01:07 PT 10.5 (10.0-12.5) sec APTT 23.5 (22.0-30.0) sec CBC 11/28/23 Range/Units 01:07 WBC 6.4 (3.8-10.6) k/uL RBC 3.50 L (4.30-5.90) m/uL Hgb 11.9 L (13.0-17.5) gm/dL Hct 32.1 L (39.0-53.0) % Plt Count 114 L (150-450) k/uL Comprehensive Metabolic Panel 11/28/23 Range/Units 01:07 Sodium 135 L (137-145) mmol/L Potassium 4.5 (3.5-5.1) mmol/L Chloride 98 (98-107) mmol/L Carbon Dioxide 26 (22-30) mmol/L BUN 47 H (9-20) mg/dL Creatinine 4.73 H (0.66-1.25) mg/dL Glucose 261 H (74-99) mg/dL Calcium 8.4 (8.4-10.2) mg/dL AST 38 (17-59) U/L ALT 11 (4-49) U/L Alkaline Phosphatase 127 H (38-126) U/L Total Protein 6.9 (6.3-8.2) g/dL Albumin 4.2 (3.5-5.0) g/dL Current Medications Generic Name Dose Route Start Last Admin Trade Name Freq PRN Reason Stop Dose Admin Heparin Sodium (Porcine) 5,000 unit 11/28/23 09:00 Heparin Sodium,Porcine 5,000 Unit/Ml 1 Ml Vial SQ Q12HR RUPERTO Naloxone HCl 0.2 mg 11/28/23 02:02 Naloxone 0.4 Mg/Ml 1 Ml Vial IV Q2M PRN Opioid Reversal Nitroglycerin 0.5 inch 11/28/23 01:30 11/28/23 01:55 Nitroglycerin Oint 1 Inch/Gm Packet TOPICAL 0.5 inch Q8HR RUPERTO Administration Ondansetron HCl 4 mg 11/28/23 02:02 Ondansetron 4 Mg/2 Ml Vial IVP Q8HR PRN Nausea And Vomiting Intake and Output 11/27/23 11/28/23 11/28/23 22:59 06:59 14:59 Other: Weight 97.522 kg 11/28/23 01:07 11/28/23 01:07
--- NOTE | 2023-11-28 11:22 | P.NPCON ---
History of Present Illness - Reason for Consult end stage renal disease - History of Present Illness Reason for consultation: End-stage renal disease History of present illness: Patient is 88-year-old male seen in renal consultation for end-stage renal disease. He is maintained on hemodialysis on Saturday schedule. Patient completed hemodialysis on Saturday. Patient states he developed chest pain around 2 AM. Subsequently his brought him to the hospital for further evaluation. Patient does have history of coronary artery disease with prior cardiac stent. He denies shortness of breath. No fever or chills. No vomiting or diarrhea. No cough. Currently on heparin drip. Cardiology consulted. Hemodynamically stable. Vital signs are stable. Blood pressure on the lower side. General: No acute distress. HEENT: Head exam is unremarkable. On nasal cannula. LUNGS: No audible rhonchi or wheezes. HEART: Rate and Rhythm are regular. ABDOMEN: Nontender. EXTREMITITES: No edema. Past Medical History Past Medical History: Coronary Artery Disease (CAD), Cancer, Chest Pain / Angina, Diabetes Mellitus, Hyperlipidemia, Hypertension, Osteoarthritis (OA), Prostate Disorder, Renal Disease Additional Past Medical History / Comment(s): parkinson's, hx gout, hx basal cell carcinoma on head, melanoma lt shoulder, hx kidney stones, hx migraines, constipation, dialysis started august 2020 on sat,sat,saturday schedule, fistula in left arm december 2020. History of Any Multi-Drug Resistant Organisms: None Reported, MRSA Date of last positivie culture/infection: 2004 MDRO Source:: rt shoulder Past Surgical History: Back Surgery, Cholecystectomy, Ear Surgery, Heart Catheterization, Heart Catheterization With Stent, Joint Replacement, Orthopedic Surgery, Tonsillectomy Additional Past Surgical History / Comment(s): cody knee replacement, cody. carpal tunnel release, cody shoulder rotator cuff repair, back surgery x5, (laminectomy, laminectomy with fusion, laminectomy and partial removal of fusion x2) lumbar fusionL4,L5, lt ear surgery x3 with replacement malleus/incus/stapes, revision of tympanoplasty, wide excision melanoma left shoulder, I&D rt thumb, lithotripsy,cystoscopy with kidney stone retrieved, cody cataracts, face and left ear multiple lesion removal, oral surgery, one cardiac stent, cody knee arthroscopy, debridement of rt shoulder x 2 with partial closure of rt shoulder, Past Anesthesia/Blood Transfusion Reactions: Family History of Problems w/ Anesthesia Additional Past Anesthesia/Blood Transfusion Reaction / Comment(s): hx vertigo, brother had issues-not sure what it was Date of Last Stent Placement:: 06/2018 Past Psychological History: No Psychological Hx Reported Smoking Status: Never smoker Past Alcohol Use History: None Reported Past Drug Use History: None Reported - Past Family History Mother Family Medical History: Cancer Father Family Medical History: Coronary Artery Disease (CAD), Hypertension Brother(s) Family Medical History: Cancer Sister(s) Family Medical History: Cancer, COPD, Diabetes Mellitus, Hypertension Medications and Allergies Home Medications Medication Instructions Recorded Confirmed Type allopurinoL [Zyloprim] 100 mg PO HS 06/02/16 11/28/23 History Cetirizine HCl [Zyrtec] 10 mg PO DAILY 05/26/18 11/28/23 History Finasteride [Proscar] 5 mg PO HS 05/26/18 11/28/23 History Tamsulosin HCl [Flomax] 0.4 mg PO PC-BRKFST 05/26/18 11/28/23 History Nitroglycerin Sl Tabs [Nitrostat] 0.4 mg SUBLINGUAL Q5M PRN #25 tab 06/04/18 11/28/23 Rx Aspirin 81 mg PO DAILY 07/18/19 11/28/23 History Atorvastatin [Lipitor] 40 mg PO HS 07/18/19 11/28/23 History Carbidopa-Levodopa 25-100 mg 1 tab PO QID 07/18/19 11/28/23 History [Sinemet 25-100 mg] Albuterol Sulfate [Proair Hfa] 2 puff INHALATION RT-Q4H PRN 08/15/20 11/28/23 History Levothyroxine Sodium [Synthroid] 50 mcg PO HS 08/15/20 11/28/23 History Isosorbide Mononitrate ER [Imdur] 30 mg PO SUTUTHSA 01/14/22 11/28/23 History Lactulose [Constulose] 30 ml PO DAILY 01/14/22 11/28/23 History Midodrine HCl [ProAmatine] 10 mg PO TID 01/14/22 11/28/23 History Pregabalin [Lyrica] 100 mg PO BID 01/14/22 11/28/23 History Sevelamer Carbonate 2,400 mg PO TID-W/MEALS 01/14/22 11/28/23 History Insulin Aspart [NovoLOG Flexpen] 5 units SQ AC-TID 01/28/23 11/28/23 History Insulin Glargine,Hum.rec.anlog 25 units SQ DAILY 01/28/23 11/28/23 History [Tousammy Solostar] Metoprolol Tartrate [Lopressor] 25 mg PO SUTUTHSA@0900,2100 01/28/23 11/28/23 History Calcium Acetate [Phoslo] 1,334 mg PO DAILY PRN 11/28/23 11/28/23 History Calcium Acetate [Phoslo] 667 mg PO TID-W/MEALS 11/28/23 11/28/23 History Cyclobenzaprine [Flexeril] 10 mg PO DAILY PRN 11/28/23 11/28/23 History Folic Acid/Vit B Complex and C 0.8 mg PO W/SUPPER 11/28/23 11/28/23 History [Nephro-Paulo Tablet] HYDROcodone/APAP 10-325MG [[place] 1 tab PO Q4HR PRN 11/28/23 11/28/23 History 10-325] Insulin Aspart [NovoLOG Flexpen] See Protocol SQ AC-TID 11/28/23 11/28/23 History Melatonin 3 mg PO HS 11/28/23 11/28/23 History polyethylene glycoL 3350 [Miralax] 17 gm PO DAILY 11/28/23 11/28/23 History Allergies Allergy/AdvReac Type Severity Reaction Status Date / Time cephalexin [From Keflex] Allergy Itching Verified 11/28/23 08:38 sulfamethoxazole Allergy Itching Verified 11/28/23 08:38 [From Bactrim] trimethoprim [From Bactrim] Allergy Itching Verified 11/28/23 08:38 baclofen AdvReac Severe Nausea & Verified 11/28/23 08:38 Vomiting fentanyl AdvReac Hallucinati Verified 11/28/23 08:38 ons hydromorphone HCl AdvReac Nausea & Verified 11/28/23 08:38 [From Dilaudid] Vomiting morphine AdvReac Hallucinati Verified 11/28/23 08:38 ons vancomycin AdvReac Chills, Verified 11/28/23 08:38 Sweating, Did not feel well Physical Exam Vitals: Vital Signs Temp Pulse Resp BP Pulse Ox 11/28/23 07:54 64 18 86/45 95 11/28/23 06:00 62 16 92/47 99 11/28/23 04:00 63 16 97/41 96 11/28/23 01:21 76 16 92/50 90 L 11/28/23 00:44 97.4 F L 86 18 108/57 90 L Intake and Output 11/27/23 11/28/23 11/28/23 22:59 06:59 14:59 Other: Weight 97.522 kg Results - Lab Results Most recent lab results Calcium 8.4 mg/dL (8.4-10.2) 11/28/23 01:07 Magnesium 2.1 mg/dL (1.6-2.3) 11/28/23 01:07 11/28/23 08:12 11/28/23 01:07 Assessment and Plan Plan: Assessment: 1. End-stage renal disease maintained on hemodialysis on Saturday schedule. 2. Coronary artery disease with prior cardiac stent. 3. Chest pain. On heparin drip. Cardiology following. 4. Chronic kidney disease mineral bone disease. 5. Hypotension maintained on midodrine. 6. Diabetes mellitus. Plan: Hemodialysis tomorrow. Check phosphorus level. Resume Renvela with meals. Follow-up echocardiogram. Thank you for the consultation. I will continue to follow the patient with you during his hospital stay.
[2023-11-28] MEDS: SEVELAMER 800 MG TAB PO SCH ×2 (11:46→18:41)
[2023-11-28] MEDS ORDERED: NITROGLYCERIN SL TABS 0.4 MG TAB SUBLINGUAL PRN (16:11)
[2023-11-28] MEDS ORDERED: ALBUTEROL NEBULIZED 2.5 MG/3 ML INHALATION PRN (16:11)
[2023-11-28] MEDS ORDERED: CALCIUM ACETATE 667 MG TAB PO PRN (16:11)
[2023-11-28] MEDS ORDERED: DEXTROSE 50% SYRINGE 50 ML IVP PRN ×2 (16:58)
[2023-11-28] MEDS ORDERED: NON FORMULARY DRUG (Insulin Aspart [Novolog Flexpen] 100 UNIT/ML Insuln.Pen) SQ SCH (17:30)
[2023-11-28] MEDS: ISOSORBIDE MONONITRATE ER 30 MG TAB.ER.24H PO SCH (17:34)
[2023-11-28] MEDS: CARBIDOPA-LEVODOPA 25-100 MG 1 EACH TAB PO SCH (17:35)
[2023-11-28] MEDS: CALCIUM ACETATE 667 MG TAB PO SCH (17:35)
[2023-11-28] MEDS: HYDROcodone/APAP 10-325MG 1 EACH TAB PO PRN (17:36)
[2023-11-28 17:43] LABS: Glucose,Whole Blood 168 mg/dL (70-110)
[2023-11-28] MEDS: INSULIN ASPART (NovoLOG) 100 UNIT/ML VIAL SQ SCH ×2 (17:43→17:46)
[2023-11-28] MEDS: HEPARIN SODIUM 1,000 UN/ML (10ML VL) IV PRN (18:23)
[2023-11-28] MEDS: FOLIC ACID-VIT B COMPLEX-VIT C 1 CAP PO SCH (18:41)
[2023-11-28] MEDS: LEVOTHYROXINE 50 MCG TAB PO SCH (20:45)
[2023-11-28] MEDS: MELATONIN 3 MG TABLET PO SCH (20:45)
[2023-11-28] MEDS: ATORVASTATIN 80 MG TAB PO SCH (20:45)
[2023-11-28] MEDS: PREGABALIN 100 MG CAP PO SCH (20:45)
[2023-11-28] MEDS: METOPROLOL TARTRATE 25 MG TAB PO SCH (20:45)
[2023-11-28] MEDS: FINASTERIDE 5 MG TAB PO SCH (20:52)
[2023-11-28] MEDS: allopurinoL 100 MG TAB PO SCH (20:52)
[2023-11-28] MEDS ORDERED: ATORVASTATIN 40 MG TAB PO SCH (21:00)
[2023-11-29] MEDS: CYCLOBENZAPRINE 10 MG TAB PO PRN (05:41)
[2023-11-29 07:52] LABS: Glucose,Whole Blood 162 mg/dL (70-110)
[2023-11-29] MEDS ORDERED: ASPIRIN 81 MG PO SCH (09:00)
[2023-11-29] MEDS: ISOSORBIDE MONONITRATE ER 30 MG TAB.ER.24H PO SCH (09:01)
[2023-11-29] MEDS: CLOPIDOGREL 75 MG TAB PO SCH (09:01)
[2023-11-29] MEDS: LORATADINE 10 MG TAB PO SCH (09:01)
[2023-11-29] MEDS: polyethylene glycoL 3350 17 GM POWD.PACK PO SCH (09:02)
[2023-11-29] MEDS: LACTULOSE 20 GM/30 ML CUP PO SCH (09:02)
--- NOTE | 2023-11-29 09:25 | P.PN ---
Subjective Progress Note Date: 11/29/23 Consult reason: chest pain History of present illness: History of present illness: This is an 88-year-old male who follows with a screed person out of the [place] area but has not seen his screed person in a long time. He has a past medical history of end-stage renal disease on hemodialysis Saturday, hypertension, hyperlipidemia, coronary artery disease. Patient states he had previous stenting done on his heart in [place]. We have been asked to evaluate the patient for chest pain. Patient presented to hospital due to chest pain that started last evening around 10 PM along with numbness in the left arm. Pain was across the upper anterior chest. No nausea or vomiting. Patient took 2 nitroglycerin at home with some end of the pain. No shortness of breath. Patient is seen today in the emergency center waiting for a bed on the cardiac stepdown unit. EKG sinus rhythm with left bundle branch block. Chest x-ray: Mild left basilar opacity. WBC 7, hemoglobin 10.8, platelet count 114. INR 1. Troponin 0.025, 0.06, 0.106. Sodium 135, potassium 4.5, BUN 47 creatinine 4.73. Blood sugar 261. Magnesium 2.1, alkaline phosphatase 127 otherwise liver function test are normal Home cardiac medications: Aspirin 81 mg daily, atorvastatin 40 mg daily, Lopressor 25 mg Saturday twice daily, Nitrostat as needed, patient also on levothyroxine 50 mcg at bedtime Echocardiogram performed 08/17/2020 revealed moderate concentric left hypertrophy, EF 55-60, mild aortic valve sclerosis, mild aortic regurgitation. Mild tricuspid regurgitation, mild pulm hypertension. 11/29 Patient is seen today in the emergency center waiting for bed on the cardiac stepdown unit. Patient has no complaints of chest pain. Blood pressures been on the lower side 89/50-107/55, heart rate 65, pulse ox 96%. Echocardiogram is pending. He is scheduled for hemodialysis today. He has been maintained on heparin drip. Discussed with the patient and his option of cardiac catheterization and weight pros and cons, patient and his decided that they would like medical management at this time. Physical examination: Gen: This is an 88-year-old male in no acute distress. VS: reviewed HEENT: Head is atraumatic, normocephalic. Pupils equal, round. Sclerae is anicteric. NECK: Supple. No JVD. LUNGS: Clear to auscultation. No wheezes or rhonchi. No intercostal retractions. HEART: Regular rate and rhythm. 4/6 systolic ejection murmur parasternal area. ABDOMEN: Soft No tenderness. EXTREMITIES: No pedal edema. No calf tenderness. NEUROLOGICAL: Patient is awake, alert and oriented x3. Assessment: Non-ST elevated myocardial infarction History of coronary artery disease with previous stenting End-stage renal disease on hemodialysis Hyperlipidemia Hypertension, currently hypotensive Remote history of tobacco use Plan: Continue patient's home cardiac medications: Aspirin, atorvastatin Hold blood pressure medications due to hypotension No plan for cardiac catheterization Continue patient on midodrine 5 mg 3 times daily Obtain 2-D echocardiogram and Doppler study to assess cardiac structure and function Start patient on Plavix 75 mg daily, Imdur 30 mg daily and continue aspirin and Lipitor Continue heparin drip for another 24 hours Nurse practitioner note has been reviewed, I agree with documented findings and plan of care. Patient was seen and examined. Objective - Vital Signs Vital signs: Vital Signs Temp 97.4 F L 11/28/23 00:44 Pulse 65 11/29/23 06:48 Resp 16 11/29/23 06:48 BP 89/50 11/29/23 06:48 Pulse Ox 96 11/29/23 05:00 FiO2 Intake & Output 11/28/23 11/29/23 11/29/23 18:59 06:59 18:59 Intake Total 100.63 124.929 Balance 100.63 124.929 Intake: Intake, IV Titration 100.63 124.929 Amount Heparin Sod,Pork in 0.45% 100.63 124.929 NaCl 25,000 unit In 0.45 % NaCl 1 250ml.bag @ 10.2 UNITS/KG/HR 9.947 mls/hr IV .Q24H [facility] Rx#: [id number] - Labs CBC & Chem 7: 11/28/23 08:12 11/28/23 01:07 Labs: Abnormal Lab Results - Last 24 Hours (Table) 11/28/23 11/28/23 11/28/23 Range/Units 06:40 08:12 14:13 RBC 3.42 L (4.30-5.90) m/uL Hgb 10.8 L (13.0-17.5) gm/dL Hct 32.1 L (39.0-53.0) % Plt Count 99 L (150-450) k/uL APTT 40.2 H (22.0-30.0) sec POC Glucose (mg/dL) (70-110) mg/dL Phosphorus (2.5-4.5) mg/dL Troponin I 0.106 H* (0.000-0.034) ng/mL 11/28/23 11/28/23 11/29/23 Range/Units 14:13 17:41 00:01 RBC (4.30-5.90) m/uL Hgb (13.0-17.5) gm/dL Hct (39.0-53.0) % Plt Count (150-450) k/uL APTT 54.5 H (22.0-30.0) sec POC Glucose (mg/dL) 168 H (70-110) mg/dL Phosphorus 4.6 H (2.5-4.5) mg/dL Troponin I (0.000-0.034) ng/mL
[2023-11-29 10:15] LABS: Glucose,Whole Blood 143 mg/dL (70-110)
[2023-11-29] MEDS: TAMSULOSIN 0.4 MG CAP.ER.24H PO SCH (10:25)
[2023-11-29] MEDS: INSULIN DETEMIR (LEVEMIR) 100 UNIT/ML SYR SQ SCH (10:25)
[2023-11-29 10:36] LABS: Basophils # (A) 0.1 k/uL (0-0.2); Basophils % (A) 1 %; Eosinophils # (A) 0.4 k/uL (0-0.7); Eosinophils % (A) 5 %; HCT 32.5 % (39.0-53.0); HGB 10.9 gm/dL (13.0-17.5); Lymphocytes # (A) 1.4 k/uL (1.0-4.8); Lymphocytes % (A) 17 %; MCH 31.1 pg (25.0-35.0); MCHC 33.5 g/dL (31.0-37.0); MCV 92.9 fL (80.0-100.0); Mean Platelet Volume 10.2; Monocytes # (A) 0.4 k/uL (0-1.0); Monocytes % (A) 5 %; Neutrophils # (A) 5.6 k/uL (1.3-7.7); Neutrophils % (A) 71 %; Platelet Count 105 k/uL (150-450); RDW 13.9 % (11.5-15.5); WBC 7.9 k/uL (3.8-10.6)
[2023-11-29 10:45] LABS: Prothrombin Time 11.4 sec (10.0-12.5)
--- NOTE | 2023-11-29 11:05 | P.PN ---
Subjective Progress Note Date: 11/29/23 HISTORY OF PRESENT ILLNESS 88-year-old male one of my office patient with multiple medical problem was known to have history of chronic kidney disease with end-stage renal disease on hemodialysis 3 times a week, type 2 diabetes with multiple complication, lower back pain post surgery with history of dropping foot has use brace on regular basis, history of gout, history of atherosclerotic heart disease with cardiomyopathy, history of severe BPH, history of chronic pain syndrome has been on narcotic with hydrocodone and fentanyl. History of sepsis in the past along with pyelonephritis. History of chronic arthritis, history of chronic anemia, history of chronic neuropathy. He was seen in the office recently was doing well apparently developed to have slight worsening shortness of breath with chest tightness and pressure for the last 24 hours his symptoms have improved some with nitroglycerin. He developed worsening angina last night around 10:00 symptoms were severe with chest pressure and numbness radiate to his left arm did not have any nausea or vomiting developed mild palpitation mild cold sweat he took 2 nitroglycerin which brought his chest pain slightly only end up calling 911 and had more nitro on the way to the hospital ended up coming to the hospital. Was seen and evaluated in the emergency department His laboratory value shows troponin to be very low his BNP was 5400 EKG showed sinus rhythm with first-degree AV block with slight change in V2 V3 and anteriorly as well. Chest x-ray showed acquired with congestion and fluid overload. Patient be hospitalized to be seen cardiology and probably an echocardiogram to be done she came troponin x 3 will be done as well. Also patient will be seen nephrology for probably urgent dialysis today that he is slightly with fluid overload might have created more trouble with his heart failure causing him to have slight pressure or pain angina. 11/29/2023: Apparently patient and his 's rehabilitation services counselor heart cath today decided to continue medical management, he had 1 troponin level came back elevated and cardiology were planning to do heart cath at this point to see if there is any blockage require angioplasty and stent to be done while he is in the hospital with a plan at this point to change for medical management only. Since he canceled the heart cath cardiology decided to keep patient on heparin drip for 1 more day till tomorrow probably done another lab and troponin if he is doing well after his dialysis with no further anginal symptoms and no change or challenge with his lab can be discharged hopefully tomorrow. REVIEW OF SYSTEMS Constitutional: No fever, no chills, no night sweats. No weight change. No weakness, fatigue or lethargy. No daytime sleepiness. EENT: No headache. No blurred vision or double vision, no loss of vision. No loss of Hearing, no ringing in the ears, no dizziness. No nasal drainage or congestion. No epistaxis. No sore throat. Lungs: Slight shortness of breath with cough wheezes no sputum production. Cardiovascular: Positive PND orthopnea palpitations positive angina mild lightheadedness with chest pain and pressure slight shortness of breath.. Abdominal: No abdominal pain but nausea without vomiting vomiting no diarrhea positive constipation no tarry stool but positive lack of appetite. Genitourinary: End-stage renal disease on hemodialysis, patient had recurrent UTI and recurrent urinary retention. Musculoskeletal: No myalgias. No muscle weakness, no gait dysfunction, no frequent falls. No back pain. No neck pain. Integumentary: No wounds, no lesions. No rash or pruritus. No unusual bruising. No change in hair or nails. Neurologic: No aphasia. No facial droop. No change in mentation. No head injury. No headache. No paralysis. Positive dropping foot on the left side Psychiatric: No depression. No anxiety. No mood swings. Endocrine: No abnormal blood sugars. No weight change. No excessive sweating or thirst. No cold intolerance. PHYSICAL EXAMINATION Gen: This is elderly well-developed laying in bed does not look in any respiratory distress. HEENT: Head is atraumatic, normocephalic. Pupils equal, round. Sclerae is anicteric. NECK: Supple. No JVD. No lymphadenopathy. No thyromegaly. LUNGS: Decreased breath some relative fine rhonchi no crackles or wheezes. HEART: Regular rate and rhythm. S1, S2, positive JVD and positive systolic murmur. ABDOMEN: No abdominal pain or tenderness no rebound or rigidity. EXTREMITIES: No pedal edema. No calf tenderness. NEUROLOGICAL: Patient is awake, alert and oriented x3. Cranial nerves 2 through 12 are grossly intact. Positive dropping foot in the left side. ASSESSMENT AND PLAN 1. Chest pain and angina: With elevated troponin and his complaint of chest pain this is more like unstable angina patient be going for heart cath today to decide if he has any blockage require any attention. 2 fluid overload and congestive heart failure: Hemodialysis Resume his meds including his diuretics patient is not making any urine at this point which would not be a major help. 3 cardiomyopathy: Patient will be continue on current diuretics and readjust his medication accordingly has been doing very well with dialysis this last year hardly required to be hospitalized or seen in the emergency room. 4 diastolic congestive heart failure: Patient has been on medical management with furosemide 40 mg twice a day, nitro, lisinopril and metoprolol. Patient Lasix will be held for now also hold his lisinopril. Take away. 5 type 2 diabetes: Resume his insulin with Accu-Cheks sliding scale coverage his last A1c has been around 7. 6 Parkinson disease: Has been doing very well on Carbidopa-levodopa which we will resume his medication. 7 severe neuropathy: Has been on Lyrica 100 mg twice a day. 8 atherosclerotic heart disease: Continue medical management no invasive procedure patient seen cardiology regularly. 9 Parkinson disease and tremor: Continue patient on Sinemet 3 times a day along with repeat a pro-. 10 gout: Patient remain on allopurinol 100 mg a day. 11 BPH: Continue to watch for any urinary retention patient remain on Low-Dose and Add Finasteride Has Been Seen Urology Regularly. 12 Arrhythmia with Mild Tachycardia None A. fib Base: Patient Remain on Metoprolol 25 Mg Twice a Day. Planning: He cancel heart catheter today he is going to finish his dialysis today but will continue heparin drip for the reminder of the day tomorrow morning repeat labs again with troponin and CMP if he is doing well by tomorrow with no further complaint of anginal chest pain patient can be discharged safe home to go back on his regular schedule for outpatient hemodialysis. Objective - Vital Signs Vital signs: Vital Signs Temp 97.4 F L 11/28/23 00:44 Pulse 64 11/29/23 05:00 Resp 16 11/29/23 05:00 BP 99/52 11/29/23 05:00 Pulse Ox 96 11/29/23 05:00 FiO2 Intake & Output 11/28/23 11/28/23 11/29/23 06:59 18:59 06:59 Intake Total 100.63 124.929 Balance 100.63 124.929 Weight 97.522 kg Intake: Intake, IV Titration 100.63 124.929 Amount Heparin Sod,Pork in 0.45% 100.63 124.929 NaCl 25,000 unit In 0.45 % NaCl 1 250ml.bag @ 10.2 UNITS/KG/HR 9.947 mls/hr IV .Q24H [facility] Rx#: [id number] - Labs CBC & Chem 7: 11/29/23 09:38 11/28/23 01:07 Labs: Abnormal Lab Results - Last 24 Hours (Table) 11/28/23 11/28/23 11/28/23 Range/Units 03:47 06:40 08:12 RBC 3.42 L (4.30-5.90) m/uL Hgb 10.8 L (13.0-17.5) gm/dL Hct 32.1 L (39.0-53.0) % Plt Count 99 L (150-450) k/uL APTT (22.0-30.0) sec POC Glucose (mg/dL) (70-110) mg/dL Phosphorus (2.5-4.5) mg/dL Troponin I 0.060 H* 0.106 H* (0.000-0.034) ng/mL 11/28/23 11/28/23 11/28/23 Range/Units 14:13 14:13 17:41 RBC (4.30-5.90) m/uL Hgb (13.0-17.5) gm/dL Hct (39.0-53.0) % Plt Count (150-450) k/uL APTT 40.2 H (22.0-30.0) sec POC Glucose (mg/dL) 168 H (70-110) mg/dL Phosphorus 4.6 H (2.5-4.5) mg/dL Troponin I (0.000-0.034) ng/mL 11/29/23 Range/Units 00:01 RBC (4.30-5.90) m/uL Hgb (13.0-17.5) gm/dL Hct (39.0-53.0) % Plt Count (150-450) k/uL APTT 54.5 H (22.0-30.0) sec POC Glucose (mg/dL) (70-110) mg/dL Phosphorus (2.5-4.5) mg/dL Troponin I (0.000-0.034) ng/mL
[2023-11-29 11:16] LABS: ALT 7 U/L (4-49); AST 23 U/L (17-59); African American GFR (CKD) 13 (>60 ml/min/1.73 sqM); Albumin 3.9 g/dL (3.5-5.0); Alkaline Phosphatase 98 U/L (38-126); Anion Gap 10 mmol/L; Blood Urea Nitrogen 36 mg/dL (9-20); Calcium 8.6 mg/dL (8.4-10.2); Carbon Dioxide 27 mmol/L (22-30); Chloride 98 mmol/L (98-107); Glucose 131 mg/dL (74-99); Non-African American GFR(CKD) 12 (>60 ml/min/1.73 sqM); Potassium 3.8 mmol/L (3.5-5.1); Sodium 135 mmol/L (137-145); Total Bilirubin 0.7 mg/dL (0.2-1.3); Total Protein 6.7 g/dL (6.3-8.2)
--- NOTE | 2023-11-29 12:07 | P.PN ---
Subjective Patient is seen in follow-up for end-stage renal disease. He is maintained on hemodialysis on Saturday schedule. Tolerating dialysis well. Remains on heparin drip. No chest pain. Vital signs are stable. General: No acute distress. HEENT: Head exam is unremarkable. On nasal cannula. LUNGS: No audible rhonchi or wheezes. HEART: Rate and Rhythm are regular. ABDOMEN: Nontender. EXTREMITITES: No edema. Objective - Vital Signs Vital signs: Vital Signs Temp 98.1 F 11/29/23 08:55 Pulse 66 11/29/23 11:57 Resp 18 11/29/23 11:57 BP 91/63 11/29/23 11:57 Pulse Ox 96 11/29/23 11:57 FiO2 Intake & Output 11/28/23 11/29/23 11/29/23 18:59 06:59 18:59 Intake Total 100.63 124.929 Balance 100.63 124.929 Intake: Intake, IV Titration 100.63 124.929 Amount Heparin Sod,Pork in 0.45% 100.63 124.929 NaCl 25,000 unit In 0.45 % NaCl 1 250ml.bag @ 10.2 UNITS/KG/HR 9.947 mls/hr IV .Q24H [facility] Rx#: [id number] - Labs CBC & Chem 7: 11/29/23 09:38 11/29/23 09:38 Labs: Abnormal Lab Results - Last 24 Hours (Table) 11/28/23 11/28/23 11/28/23 Range/Units 14:13 14:13 17:41 RBC (4.30-5.90) m/uL Hgb (13.0-17.5) gm/dL Hct (39.0-53.0) % Plt Count (150-450) k/uL APTT 40.2 H (22.0-30.0) sec Sodium (137-145) mmol/L BUN (9-20) mg/dL Creatinine (0.66-1.25) mg/dL Glucose (74-99) mg/dL POC Glucose (mg/dL) 168 H (70-110) mg/dL Phosphorus 4.6 H (2.5-4.5) mg/dL 11/29/23 11/29/23 11/29/23 Range/Units 00:01 07:50 09:38 RBC 3.50 L (4.30-5.90) m/uL Hgb 10.9 L (13.0-17.5) gm/dL Hct 32.5 L (39.0-53.0) % Plt Count 105 L (150-450) k/uL APTT 54.5 H (22.0-30.0) sec Sodium (137-145) mmol/L BUN (9-20) mg/dL Creatinine (0.66-1.25) mg/dL Glucose (74-99) mg/dL POC Glucose (mg/dL) 162 H (70-110) mg/dL Phosphorus (2.5-4.5) mg/dL 11/29/23 11/29/23 Range/Units 09:38 10:13 RBC (4.30-5.90) m/uL Hgb (13.0-17.5) gm/dL Hct (39.0-53.0) % Plt Count (150-450) k/uL APTT (22.0-30.0) sec Sodium 135 L (137-145) mmol/L BUN 36 H (9-20) mg/dL Creatinine 4.24 H (0.66-1.25) mg/dL Glucose 131 H (74-99) mg/dL POC Glucose (mg/dL) 143 H (70-110) mg/dL Phosphorus (2.5-4.5) mg/dL Assessment and Plan Plan: Assessment: 1. End-stage renal disease maintained on hemodialysis on Saturday schedule. 2. Coronary artery disease with prior cardiac stent. 3. Chest pain. On heparin drip. Cardiology following. No plans for cardiac catheterization. 4. Chronic kidney disease mineral bone disease. On Renvela. Phosphorus level 4.6 dated November 28, 2023. 5. Hypotension maintained on midodrine. 6. Diabetes mellitus. Plan: Currently seen while undergoing hemodialysis. Next treatment on Saturday. Follow-up echocardiogram.
[2023-11-29 12:22] LABS: Glucose,Whole Blood 121 mg/dL (70-110)
[2023-11-29 16:36] LABS: Glucose,Whole Blood 158 mg/dL (70-110)
--- NOTE | 2023-11-29 16:55 | CA ---
Transthoracic Echo Report Name: Asher Wright Age: 88 Gender: M : 1935 Exam Date: 11/29/2023 07:34 Exam Location: [facility] Ht (in): 70 Wt (lb): 215 Ordering Physician: Missy Douglas Attending/Referring Phys: [id number], Stella Last Sorter Vishnu Millan RDCS Procedure CPT: Indications: LVH Cardiac Hx: Technical Quality: Fair Contrast 1: Total Dose (mL): Contrast 2: Total Dose (mL): MEASUREMENTS (Male / Female) Normal Values 2D ECHO LV Diastolic Diameter PLAX 5.4 cm 4.2 - 5.9 / 3.9 - 5.3 cm LV Systolic Diameter PLAX 4.3 cm IVS Diastolic Thickness 0.8 cm 0.6 - 1.0 / 0.6 - 0.9 cm LVPW Diastolic Thickness 1.0 cm 0.6 - 1.0 / 0.6 - 0.9 cm LV Relative Wall Thickness 0.3 Aortic Root Diameter 3.7 cm LA Systolic Diameter LX 4.5 cm 3.0 - 4.0 / 2.7 - 3.8 cm DOPPLER AV Peak Velocity 248.9 cm/s AV Peak Gradient 24.8 mmHg AV Mean Velocity 170.6 cm/s AV Mean Gradient 13.8 mmHg AV Velocity Time Integral 56.1 cm LVOT Peak Velocity 54.4 cm/s LVOT Peak Gradient 1.2 mmHg LVOT Velocity Time Integral 12.4 cm MR Peak Velocity 359.5 cm/s MR Peak Gradient 51.7 mmHg Mitral E Point Velocity 91.4 cm/s Mitral A Point Velocity 58.5 cm/s Mitral E to A Ratio 1.6 MV Deceleration Time 174.6 ms MV E' Velocity 12.3 cm/s Mitral E to MV E' Ratio 7.4 TR Peak Velocity 255.7 cm/s TR Peak Gradient 26.2 mmHg PV Peak Velocity 61.9 cm/s PV Peak Gradient 1.5 mmHg FINDINGS Left Ventricle Left ventricular ejection fraction is estimated at 50-55 %. Moderate concentric left ventricular hypertrophy. Right Ventricle Normal right ventricular size and function. Right Atrium Normal right atrial size. Left Atrium Mildly increased left atrial diameter. Mitral Valve Mild mitral regurgitation. Aortic Valve Mild aortic stenosis with a peak gradient of 25 mmHg and a mean gradient of 14 mmHg. Tricuspid Valve Mild tricuspid regurgitation. Pulmonic Valve Pulmonic valve not well visualized. Pericardium Normal pericardium. Aorta Normal size aortic root and proximal ascending aorta. CONCLUSIONS Previous echo recorded on 08/17/2020. Moderate increased left ventricular wall thickness Left ventricular ejection fraction 50-55% Mild mitral regurgitation Mild aortic stenosis Mild tricuspid regurgitation Previewed by: Dr. Kane Francisco DO (Electronically Signed) Final Date: 29 November 2023 16:54
[2023-11-29 19:59] LABS: Glucose,Whole Blood 173 mg/dL (70-110)
[2023-11-30 06:54] LABS: Glucose,Whole Blood 166 mg/dL (70-110)
[2023-11-30 08:32] VITALS: BP 115/56; PULSE 79; RESP 17; TEMP 97.9
--- NOTE | 2023-11-30 09:32 | P.PN ---
Subjective Progress Note Date: 11/30/23 Consult reason: chest pain History of present illness: History of present illness: This is an 88-year-old male who follows with a technologies division chair out of the [place] area but has not seen his technologies division chair in a long time. He has a past medical history of end-stage renal disease on hemodialysis Saturday, hypertension, hyperlipidemia, coronary artery disease. Patient states he had previous stenting done on his heart in [place]. We have been asked to evaluate the patient for chest pain. Patient presented to hospital due to chest pain that started last evening around 10 PM along with numbness in the left arm. Pain was across the upper anterior chest. No nausea or vomiting. Patient took 2 nitroglycerin at home with some end of the pain. No shortness of breath. Patient is seen today in the emergency center waiting for a bed on the cardiac stepdown unit. EKG sinus rhythm with left bundle branch block. Chest x-ray: Mild left basilar opacity. WBC 7, hemoglobin 10.8, platelet count 114. INR 1. Troponin 0.025, 0.06, 0.106. Sodium 135, potassium 4.5, BUN 47 creatinine 4.73. Blood sugar 261. Magnesium 2.1, alkaline phosphatase 127 otherwise liver function test are normal Home cardiac medications: Aspirin 81 mg daily, atorvastatin 40 mg daily, Lopressor 25 mg Saturday twice daily, Nitrostat as needed, patient also on levothyroxine 50 mcg at bedtime Echocardiogram performed 08/17/2020 revealed moderate concentric left hypertrophy, EF 55-60, mild aortic valve sclerosis, mild aortic regurgitation. Mild tricuspid regurgitation, mild pulm hypertension. 11/29 Patient is seen today in the emergency center waiting for bed on the cardiac stepdown unit. Patient has no complaints of chest pain. Blood pressures been on the lower side 89/50-107/55, heart rate 65, pulse ox 96%. Echocardiogram is pending. He is scheduled for hemodialysis today. He has been maintained on heparin drip. Discussed with the patient and his option of cardiac catheterization and weight pros and cons, patient and his decided that they would like medical management at this time. 11/30 Patient is scheduled for discharge home today. He denies having any chest pain or shortness of breath. He is on IV heparin drip which will be discontinued today. Blood pressure 115/56, heart rate 79, pulse ox 97% on room air. Physical examination: Gen: This is an 88-year-old male in no acute distress. VS: reviewed HEENT: Head is atraumatic, normocephalic. Pupils equal, round. Sclerae is anicteric. NECK: Supple. No JVD. LUNGS: Clear to auscultation. No wheezes or rhonchi. No intercostal retractio ns. HEART: Regular rate and rhythm. 4/6 systolic ejection murmur parasternal area. ABDOMEN: Soft No tenderness. EXTREMITIES: No pedal edema. No calf tenderness. NEUROLOGICAL: Patient is awake, alert and oriented x3. Assessment: Non-ST elevated myocardial infarction History of coronary artery disease with previous stenting End-stage renal disease on hemodialysis Hyperlipidemia Hypertension, currently hypotensive Remote history of tobacco use Plan: Continue patient's home cardiac medications Continue the addition of Plavix 75 mg daily, Imdur 30 mg daily and continue aspirin and Lipitor Patient cleared from cardiology for discharge May follow-up with Dr. Jose Negro in the office in 2 weeks. Nurse practitioner note has been reviewed, I agree with documented findings and plan of care. Patient was seen and examined. Objective - Vital Signs Vital signs: Vital Signs Temp 97.9 F 11/30/23 08:29 Pulse 79 11/30/23 08:29 Resp 17 11/30/23 08:29 BP 115/56 11/30/23 08:29 Pulse Ox 97 11/30/23 08:29 FiO2 Intake & Output 11/29/23 11/30/23 11/30/23 18:59 06:59 18:59 Intake Total 610 908 Output Total 1000 Balance -390 908 Weight 97.522 kg 102.9 kg Intake: Intake, IV Titration 250 Amount Heparin Sod,Pork in 0.45% 250 NaCl 25,000 unit In 0.45 % NaCl 1 250ml.bag @ 10.2 UNITS/KG/HR 9.947 mls/hr IV .Q24H RUPERTO Rx#: [id number] Oral 110 658 Hemodialysis 500 Output: Hemodialysis 1000 Other: Voiding Method Toilet Toilet Urinal Urinal - Labs CBC & Chem 7: 11/29/23 09:38 11/29/23 09:38 Labs: Abnormal Lab Results - Last 24 Hours (Table) 11/29/23 11/29/23 11/29/23 Range/Units 09:38 09:38 10:13 RBC 3.50 L (4.30-5.90) m/uL Hgb 10.9 L (13.0-17.5) gm/dL Hct 32.5 L (39.0-53.0) % Plt Count 105 L (150-450) k/uL APTT (22.0-30.0) sec Sodium 135 L (137-145) mmol/L BUN 36 H (9-20) mg/dL Creatinine 4.24 H (0.66-1.25) mg/dL Glucose 131 H (74-99) mg/dL POC Glucose (mg/dL) 143 H (70-110) mg/dL 11/29/23 11/29/23 11/29/23 Range/Units 12:20 16:34 19:58 RBC (4.30-5.90) m/uL Hgb (13.0-17.5) gm/dL Hct (39.0-53.0) % Plt Count (150-450) k/uL APTT (22.0-30.0) sec Sodium (137-145) mmol/L BUN (9-20) mg/dL Creatinine (0.66-1.25) mg/dL Glucose (74-99) mg/dL POC Glucose (mg/dL) 121 H 158 H 173 H (70-110) mg/dL 11/30/23 11/30/23 Range/Units 06:53 07:33 RBC (4.30-5.90) m/uL Hgb (13.0-17.5) gm/dL Hct (39.0-53.0) % Plt Count (150-450) k/uL APTT 47.4 H (22.0-30.0) sec Sodium (137-145) mmol/L BUN (9-20) mg/dL Creatinine (0.66-1.25) mg/dL Glucose (74-99) mg/dL POC Glucose (mg/dL) 166 H (70-110) mg/dL
[2023-11-30 11:33] LABS: Glucose,Whole Blood 248 mg/dL (70-110)
--- NOTE | 2023-11-30 18:27 | P.DS ---
Providers Date of admission: 11/28/23 02:05 Attending physician: Dejan Adkins Consults: 11/28/23 02:02 Consult Physician Routine Consulting Provider: [facility] Consult Reason/Comments: chest pain Do you want consulting provider notified?: Yes Consult Physician Routine Consulting Provider: Ho Gonzales Consult Reason/Comments: esrd on hd, pulmonary vascular congestion, possible dialysis Do you want consulting provider notified?: Yes Primary care physician: [facility] Course: HISTORY OF PRESENT ILLNESS 88-year-old male one of my office patient with multiple medical problem was known to have history of chronic kidney disease with end-stage renal disease on hemodialysis 3 times a week, type 2 diabetes with multiple complication, lower back pain post surgery with history of dropping foot has use brace on regular basis, history of gout, history of atherosclerotic heart disease with cardiomyopathy, history of severe BPH, history of chronic pain syndrome has been on narcotic with hydrocodone and fentanyl. History of sepsis in the past along with pyelonephritis. History of chronic arthritis, history of chronic anemia, history of chronic neuropathy. He was seen in the office recently was doing well apparently developed to have slight worsening shortness of breath with chest tightness and pressure for the last 24 hours his symptoms have improved some with nitroglycerin. He developed worsening angina last night around 10:00 symptoms were severe with chest pressure and numbness radiate to his left arm did not have any nausea or vomitin g developed mild palpitation mild cold sweat he took 2 nitroglycerin which brought his chest pain slightly only end up calling 911 and had more nitro on the way to the hospital ended up coming to the hospital. Was seen and evaluated in the emergency department His laboratory value shows troponin to be very low his BNP was 5400 EKG showed sinus rhythm with first-degree AV block with slight change in V2 V3 and anteriorly as well. Chest x-ray showed acquired with congestion and fluid overload. Patient be hospitalized to be seen cardiology and probably an echocardiogram to be done she came troponin x 3 will be done as well. Also patient will be seen nephrology for probably urgent dialysis today that he is slightly with fluid overload might have created more trouble with his heart failure causing him to have slight pressure or pain angina. 11/29/2023: Apparently patient and his 's world travel counselor heart cath today decided to continue medical management, he had 1 troponin level came back elevated and cardiology were planning to do heart cath at this point to see if there is any blockage require angioplasty and stent to be done while he is in the hospital with a plan at this point to change for medical management only. Since he canceled the heart cath cardiology decided to keep patient on heparin drip for 1 more day till tomorrow probably done another lab and troponin if he is doing well after his dialysis with no further anginal symptoms and no change or challenge with his lab can be discharged hopefully tomorrow. 11-30-2023: Patient is doing much better no further chest pain or angina at this point, his heparin drip was stopped and agree with cardiology to let him go home continue isosorbide mononitrate, added Plavix and titrate his atorvastatin up to 80 mg daily. Patient will be seen [facility] and will be back to be seen in our office in the next week. REVIEW OF SYSTEMS Constitutional: No fever, no chills, no night sweats. No weight change. No weakness, fatigue or lethargy. No daytime sleepiness. EENT: No headache. No blurred vision or double vision, no loss of vision. No loss of Hearing, no ringing in the ears, no dizziness. No nasal drainage or congestion. No epistaxis. No sore throat. Lungs: Slight shortness of breath with cough wheezes no sputum production. Cardiovascular: Positive PND orthopnea palpitations positive angina mild lightheadedness with chest pain and pressure slight shortness of breath.. Abdominal: No abdominal pain but nausea without vomiting vomiting no diarrhea positive constipation no tarry stool but positive lack of appetite. Genitourinary: End-stage renal disease on hemodialysis, patient had recurrent UTI and recurrent urinary retention. Musculoskeletal: No myalgias. No muscle weakness, no gait dysfunction, no frequent falls. No back pain. No neck pain. Integumentary: No wounds, no lesions. No rash or pruritus. No unusual bruising. No change in hair or nails. Neurologic: No aphasia. No facial droop. No change in mentation. No head injury. No headache. No paralysis. Positive dropping foot on the left side Psychiatric: No depression. No anxiety. No mood swings. Endocrine: No abnormal blood sugars. No weight change. No excessive sweating or thirst. No cold intolerance. PHYSICAL EXAMINATION Gen: This is elderly well-developed laying in bed does not look in any respiratory distress. HEENT: Head is atraumatic, normocephalic. Pupils equal, round. Sclerae is anicteric. NECK: Supple. No JVD. No lymphadenopathy. No thyromegaly. LUNGS: Decreased breath some relative fine rhonchi no crackles or wheezes. HEART: Regular rate and rhythm. S1, S2, positive JVD and positive systolic murmur. ABDOMEN: No abdominal pain or tenderness no rebound or rigidity. EXTREMITIES: No pedal edema. No calf tenderness. NEUROLOGICAL: Patient is awake, alert and oriented x3. Cranial nerves 2 through 12 are grossly intact. Positive dropping foot in the left side. ASSESSMENT AND PLAN 1. Chest pain and angina: With elevated troponin and his complaint of chest pain this is more like unstable angina patient be going for heart cath today to decide if he has any blockage require any attention. 2 fluid overload and congestive heart failure: Hemodialysis Resume his meds including his diuretics patient is not making any urine at this point which would not be a major help. 3 cardiomyopathy: Patient will be continue on current diuretics and readjust his medication accordingly has been doing very well with dialysis this last year hardly required to be hospitalized or seen in the emergency room. 4 diastolic congestive heart failure: Patient has been on medical management with furosemide 40 mg twice a day, nitro, lisinopril and metoprolol. Patient Lasix will be held for now also hold his lisinopril. Take away. 5 type 2 diabetes: Resume his insulin with Accu-Cheks sliding scale coverage his last A1c has been around 7. 6 Parkinson disease: Has been doing very well on Carbidopa-levodopa which we will resume his medication. 7 severe neuropathy: Has been on Lyrica 100 mg twice a day. 8 atherosclerotic heart disease: Continue medical management no invasive procedure patient seen cardiology regularly. 9 Parkinson disease and tremor: Continue patient on Sinemet 3 times a day along with repeat a pro-. 10 gout: Patient remain on allopurinol 100 mg a day. 11 BPH: Continue to watch for any urinary retention patient remain on Low-Dose and Add Finasteride Has Been Seen Urology Regularly. 12 Arrhythmia with Mild Tachycardia None A. fib Base: Patient Remain on Metoprolol 25 Mg Twice a Day. Hospital course: Patient has done very well he refused to go for heart cath worry about a complication wants to try medical management, after being For few days on heparin and adding Plavix patient is chest pain-free he is remain on isosorbide mononitrate which will be continued on. Also dialysis was done and plan patient will resume his outpatient dialysis schedule. Patient be discharged home to follow-up in the office in the next few days and follow-up with cardiology. Patient Condition at Discharge: Stable Plan - Discharge Summary New Discharge Prescriptions: New Atorvastatin [Lipitor] 80 mg PO HS #90 tab Clopidogrel [Plavix] 75 mg PO DAILY #90 tab Continue allopurinoL [Zyloprim] 100 mg PO HS Cetirizine HCl [Zyrtec] 10 mg PO DAILY Tamsulosin HCl [Flomax] 0.4 mg PO PC-BRKFST Finasteride [Proscar] 5 mg PO HS Nitroglycerin Sl Tabs [Nitrostat] 0.4 mg SUBLINGUAL Q5M PRN #25 tab PRN Reason: Chest Pain Aspirin 81 mg PO DAILY Carbidopa-Levodopa 25-100 mg [Sinemet 25-100 mg] 1 tab PO QID Levothyroxine Sodium [Synthroid] 50 mcg PO HS Albuterol Sulfate [Proair Hfa] 2 puff INHALATION RT-Q4H PRN PRN Reason: Shortness Of Breath Midodrine HCl [ProAmatine] 10 mg PO TID Sevelamer Carbonate 2,400 mg PO TID-W/MEALS Isosorbide Mononitrate ER [Imdur] 30 mg PO SUTUTHSA Metoprolol Tartrate [Lopressor] 25 mg PO SUTUTHSA@0900,2100 Melatonin 3 mg PO HS Insulin Aspart [NovoLOG Flexpen] See Protocol SQ AC-TID Folic Acid/Vit B Complex and C [Nephro-Paulo Tablet] 0.8 mg PO W/SUPPER Calcium Acetate [PhosLo] 1,334 mg PO DAILY PRN PRN Reason: W/SNACKS Lactulose [Constulose] 30 ml PO DAILY Pregabalin [Lyrica] 100 mg PO BID Insulin Glargine,Hum.rec.anlog [Toujeo Solostar] 25 units SQ DAILY Insulin Aspart [NovoLOG Flexpen] 5 units SQ AC-TID polyethylene glycoL 3350 [Miralax] 17 gm PO DAILY HYDROcodone/APAP 10-325MG [Oxbow 10-325] 1 tab PO Q4HR PRN PRN Reason: Pain Cyclobenzaprine [Flexeril] 10 mg PO DAILY PRN PRN Reason: SHOOTING LEG PAIN Calcium Acetate [PhosLo] 667 mg PO TID-W/MEALS Discontinued Atorvastatin [Lipitor] 40 mg PO HS Discharge Medication List allopurinoL [Zyloprim] 100 mg PO HS 06/02/16 [History] Cetirizine HCl [Zyrtec] 10 mg PO DAILY 05/26/18 [History] Finasteride [Proscar] 5 mg PO HS 05/26/18 [History] Tamsulosin HCl [Flomax] 0.4 mg PO PC-BRKFST 05/26/18 [History] Nitroglycerin Sl Tabs [Nitrostat] 0.4 mg SUBLINGUAL Q5M PRN #25 tab 06/04/18 [Rx] Aspirin 81 mg PO DAILY 07/18/19 [History] Carbidopa-Levodopa 25-100 mg [Sinemet 25-100 mg] 1 tab PO QID 07/18/19 [History] Albuterol Sulfate [Proair Hfa] 2 puff INHALATION RT-Q4H PRN 08/15/20 [History] Levothyroxine Sodium [Synthroid] 50 mcg PO HS 08/15/20 [History] Isosorbide Mononitrate ER [Imdur] 30 mg PO SUTUTHSA 01/14/22 [History] Lactulose [Constulose] 30 ml PO DAILY 01/14/22 [History] Midodrine HCl [ProAmatine] 10 mg PO TID 01/14/22 [History] Pregabalin [Lyrica] 100 mg PO BID 01/14/22 [History] Sevelamer Carbonate 2,400 mg PO TID-W/MEALS 01/14/22 [History] Insulin Aspart [NovoLOG Flexpen] 5 units SQ AC-TID 01/28/23 [History] Insulin Glargine,Hum.rec.anlog [Toujeo Solostar] 25 units SQ DAILY 01/28/23 [History] Metoprolol Tartrate [Lopressor] 25 mg PO SUTUTHSA@0900,2100 01/28/23 [History] Calcium Acetate [PhosLo] 1,334 mg PO DAILY PRN 11/28/23 [History] Calcium Acetate [PhosLo] 667 mg PO TID-W/MEALS 11/28/23 [History] Cyclobenzaprine [Flexeril] 10 mg PO DAILY PRN 11/28/23 [History] Folic Acid/Vit B Complex and C [Nephro-Paulo Tablet] 0.8 mg PO W/SUPPER 11/28/23 [History] HYDROcodone/APAP 10-325MG [Oxbow 10-325] 1 tab PO Q4HR PRN 11/28/23 [History] Insulin Aspart [NovoLOG Flexpen] See Protocol SQ AC-TID 11/28/23 [History] Melatonin 3 mg PO HS 11/28/23 [History] polyethylene glycoL 3350 [Miralax] 17 gm PO DAILY 11/28/23 [History] Atorvastatin [Lipitor] 80 mg PO HS #90 tab 11/30/23 [Rx] Clopidogrel [Plavix] 75 mg PO DAILY #90 tab 11/30/23 [Rx] Follow up Appointment(s)/Referral(s): Dejan Adkins MD [Primary Care Provider] - 1-2 days (Office is closed, please call saturday for hospital follow up. ) Ho Gonzales DO [STAFF PHYSICIAN] - 1 Week (Office is closed, please call Saturday to schedule hospital follow up. ) Demetris Negro MD [STAFF PHYSICIAN] - 2 Weeks (Office is closed, please call Saturday to schedule apt. ) Patient Instructions/Handouts: Angina (DC), Hypoxemia (DC) Discharge Disposition: HOME SELF-CARE
--- NOTE | 2023-12-03 12:19 | CDI ---
Documentation Clarification Form Date: 12/03/2023 12:03:22 PM From: Verenice Ambriz Admit Date: 11/28/2023 02:05:00 AM Patient Name: Asher Wright Visit Number: [id number] Discharge Date: 11/30/2023 11:54:00 AM ATTENTION: The Clinical Documentation Specialists (CDI) and [facility] Coding Staff appreciate your assistance in clarifying documentation. Please respond to the clarification below the line at the bottom and electronically sign. The CDI & [facility] Coding staff will review the response and follow-up if needed. Please note: Queries are made part of the Legal Health Record. If you have any questions, please contact the author of this message via ITS. Dr. Dejan Adkins Conflicting documentation has been found in the medical record. As attending physician, please provide clarification. Per Cardiology "NON-ST elevated myocardial infarction" Per DCS "Chest pain and angina with elevated troponin and his complaint of CP this is more likely unstable angina." History/Risk Factors: Diastolic CHF, cardiomyopathy, ESRD on dialysis, type II DM, Parkinsons, CAD Clinical Indicators: Elevated troponins 0.060 0.106 Treatment: Nitro Heparin Please clarify which diagnosis is most appropriate: [xx ] NSTEMI [ ] Unstable angina [ ] Other (please specify) [ ] Unable to determine MTDD
== END 2023-11-30 11:54 | disposition home or self-care (01) ==
LOC: EC 00:43 → 3SCARD 02:05
PROVIDERS: ADMIT Internal Medicine Geriatric Medicine; ATTEND Internal Medicine Geriatric Medicine
PROC: 5A1D70Z Performance of Urinary Filtration, Intermittent, Less than 6 Hours Per Day (ICD-10-PCS; principal; 2023-11-29)
DX: I21.4 Non-ST elevation (NSTEMI) myocardial infarction (principal); N18.6 End stage renal disease; I13.2 Hypertensive heart and chronic kidney disease with heart failure and with stage 5 chronic kidney disease, or end stage renal disease; I42.9 Cardiomyopathy, unspecified; I50.30 Unspecified diastolic (congestive) heart failure; I25.110 Atherosclerotic heart disease of native coronary artery with unstable angina pectoris; G89.4 Chronic pain syndrome; I27.20 Pulmonary hypertension, unspecified; I08.0 Rheumatic disorders of both mitral and aortic valves; I44.7 Left bundle-branch block, unspecified; I44.0 Atrioventricular block, first degree; I48.91 Unspecified atrial fibrillation; M10.9 Gout, unspecified; E83.9 Disorder of mineral metabolism, unspecified; I95.9 Hypotension, unspecified; M19.90 Unspecified osteoarthritis, unspecified site; N40.1 Benign prostatic hyperplasia with lower urinary tract symptoms; R33.8 Other retention of urine; K59.00 Constipation, unspecified; G43.909 Migraine, unspecified, not intractable, without status migrainosus; M21.372 Foot drop, left foot; D63.1 Anemia in chronic kidney disease; Z99.2 Dependence on renal dialysis; Z79.4 Long term (current) use of insulin; Z79.891 Long term (current) use of opiate analgesic; Z79.82 Long term (current) use of aspirin; Z79.890 Hormone replacement therapy; Z79.899 Other long term (current) drug therapy; Z82.49 Family history of ischemic heart disease and other diseases of the circulatory system; Z82.5 Family history of asthma and other chronic lower respiratory diseases; Z83.3 Family history of diabetes mellitus; Z85.820 Personal history of malignant melanoma of skin; Z85.828 Personal history of other malignant neoplasm of skin; Z87.442 Personal history of urinary calculi; Z95.5 Presence of coronary angioplasty implant and graft; Z96.653 Presence of artificial knee joint, bilateral; Z87.440 Personal history of urinary (tract) infections; Z98.1 Arthrodesis status; E11.22 Type 2 diabetes mellitus with diabetic chronic kidney disease; E78.5 Hyperlipidemia, unspecified; E11.40 Type 2 diabetes mellitus with diabetic neuropathy, unspecified; Z88.5 Allergy status to narcotic agent; Z88.1 Allergy status to other antibiotic agents
CPT/HCPCS: 36415; 71046; 80053; 83735; 83880; 84100; 84484; 85025; 85610; 85730; 90935; 93005; 93306; 96365; 96366; 96375; 99291

== ENCOUNTER 2023-12-01 03:19 | Inpatient (IN) | payer MEDICARE ==
--- NOTE | 2023-12-01 03:49 | ED ---
General Adult HPI - General Chief complaint: Chest Pain Stated complaint: chest pain Time Seen by Provider: 12/01/23 03:21 Source: patient, EMS Mode of arrival: EMS - History of Present Illness Initial comments: Dictation was produced using [employer] dictation software. please excuse any grammatical, word or spelling errors. Chief Complaint: 88-year-old male just discharged yesterday presents to the ER for chest pain History of Present Illness: Patient is 88-year-old male he was admitted to the hospital 3 days ago for chest pain. He was diagnosed with NSTEMI. According to chart review patient was seen and evaluated by cardiology and plan was for medical management as stated by cardiology note. Apparently family did not want to pursue cardiac catheterization. Proximal an hour prior to arrival patient began having substernal chest pressure rating down the left arm associated diaphoresis and nausea. Taken nitroglycerin at home which improved his symptoms. Patient states that symptoms not well longer in his arm. He does still however have some mild chest pressure. Patient received aspirin by prehospital providers. The ROS documented in this emergency department record has been reviewed and confirmed by me. Those systems with pertinent positive or negative responses have been documented in the HPI. All other systems are other negative and/or noncontributory. - Related Data Home Medications Medication Instructions Recorded Confirmed allopurinoL [Zyloprim] 100 mg PO HS 06/02/16 11/28/23 Cetirizine HCl [Zyrtec] 10 mg PO DAILY 05/26/18 11/28/23 Finasteride [Proscar] 5 mg PO HS 05/26/18 11/28/23 Tamsulosin HCl [Flomax] 0.4 mg PO PC-[id number] 05/26/18 11/28/23 Aspirin 81 mg PO DAILY 07/18/19 11/28/23 Carbidopa-Levodopa 25-100 mg 1 tab PO QID 07/18/19 11/28/23 [Sinemet 25-100 mg] Albuterol Sulfate [Proair Hfa] 2 puff INHALATION RT-Q4H PRN 08/15/20 11/28/23 Levothyroxine Sodium [Synthroid] 50 mcg PO HS 08/15/20 11/28/23 Isosorbide Mononitrate ER [Imdur] 30 mg PO SUTUTHSA 01/14/22 11/28/23 Lactulose [Constulose] 30 ml PO DAILY 01/14/22 11/28/23 Midodrine HCl [ProAmatine] 10 mg PO TID 01/14/22 11/28/23 Pregabalin [Lyrica] 100 mg PO BID 01/14/22 11/28/23 Sevelamer Carbonate 2,400 mg PO TID-W/MEALS 01/14/22 11/28/23 Insulin Aspart [NovoLOG Flexpen] 5 units SQ AC-TID 01/28/23 11/28/23 Insulin Glargine,Hum.rec.anlog 25 units SQ DAILY 01/28/23 11/28/23 [Toujeo Solostar] Metoprolol Tartrate [Lopressor] 25 mg PO SUTUTHSA@0900,2100 01/28/23 11/28/23 Calcium Acetate [PhosLo] 1,334 mg PO DAILY PRN 11/28/23 11/28/23 Calcium Acetate [PhosLo] 667 mg PO TID-W/MEALS 11/28/23 11/28/23 Cyclobenzaprine [Flexeril] 10 mg PO DAILY PRN 11/28/23 11/28/23 Folic Acid/Vit B Complex and C 0.8 mg PO W/SUPPER 11/28/23 11/28/23 [Nephro-Paulo Tablet] HYDROcodone/APAP 10-325MG [[place] 1 tab PO Q4HR PRN 11/28/23 11/28/23 10-325] Insulin Aspart [NovoLOG Flexpen] See Protocol SQ AC-TID 11/28/23 11/28/23 Melatonin 3 mg PO HS 11/28/23 11/28/23 polyethylene glycoL 3350 [Miralax] 17 gm PO DAILY 11/28/23 11/28/23 Previous Rx's Medication Instructions Recorded Nitroglycerin Sl Tabs [Nitrostat] 0.4 mg SUBLINGUAL Q5M PRN #25 tab 06/04/18 Atorvastatin [Lipitor] 80 mg PO HS #90 tab 11/30/23 Clopidogrel [Plavix] 75 mg PO DAILY #90 tab 11/30/23 Allergies Allergy/AdvReac Type Severity Reaction Status Date / Time cephalexin [From Keflex] Allergy Itching Verified 11/28/23 08:38 sulfamethoxazole Allergy Itching Verified 11/28/23 08:38 [From Bactrim] trimethoprim [From Bactrim] Allergy Itching Verified 11/28/23 08:38 baclofen AdvReac Severe Nausea & Verified 11/28/23 08:38 Vomiting fentanyl AdvReac Hallucinati Verified 11/28/23 08:38 ons hydromorphone HCl AdvReac Nausea & Verified 11/28/23 08:38 [From Dilaudid] Vomiting morphine AdvReac Hallucinati Verified 11/28/23 08:38 ons vancomycin AdvReac Chills, Verified 11/28/23 08:38 Sweating, Did not feel well Review of Systems ROS Statement: Those systems with pertinent positive or pertinent negative responses have been documented in the HPI. ROS Other: All systems not noted in ROS Statement are negative. Past Medical History Past Medical History: Coronary Artery Disease (CAD), Cancer, Chest Pain / Angina, Diabetes Mellitus, Hyperlipidemia, Hypertension, Osteoarthritis (OA), Prostate Disorder, Renal Disease Additional Past Medical History / Comment(s): parkinson's, hx gout, hx basal cell carcinoma on head, melanoma lt shoulder, hx kidney stones, hx migraines, constipation, dialysis started august 2020 on mon,sat,saturday schedule, fistula in left arm december 2020. History of Any Multi-Drug Resistant Organisms: None Reported, MRSA Date of last positivie culture/infection: 2004 MDRO Source:: rt shoulder Past Surgical History: Back Surgery, Cholecystectomy, Ear Surgery, Heart Catheterization, Heart Catheterization With Stent, Joint Replacement, Orthopedic Surgery, Tonsillectomy Additional Past Surgical History / Comment(s): cody knee replacement, cody. carpal tunnel release, cody shoulder rotator cuff repair, back surgery x5, (laminectomy, laminectomy with fusion, laminectomy and partial removal of fusion x2) lumbar fusionL4,L5, lt ear surgery x3 with replacement malleus/incus/stapes, revision of tympanoplasty, wide excision melanoma left shoulder, I&D rt thumb, lithotripsy,cystoscopy with kidney stone retrieved, cody cataracts, face and left ear multiple lesion removal, oral surgery, one cardiac stent, cody knee arthroscopy, debridement of rt shoulder x 2 with partial closure of rt shoulder, Past Anesthesia/Blood Transfusion Reactions: Family History of Problems w/ Anesthesia Additional Past Anesthesia/Blood Transfusion Reaction / Comment(s): hx vertigo, brother had issues-not sure what it was Date of Last Stent Placement:: 06/2018 Past Psychological History: No Psychological Hx Reported Smoking Status: Never smoker Past Alcohol Use History: None Reported Past Drug Use History: None Reported - Past Family History Mother Family Medical History: Cancer Father Family Medical History: Coronary Artery Disease (CAD), Hypertension Brother(s) Family Medical History: Cancer Sister(s) Family Medical History: Cancer, COPD, Diabetes Mellitus, Hypertension General Exam - General Exam Comments Initial Comments: PHYSICAL EXAM: General Impression: Alert and oriented x3, not in acute distress HEENT: Normocephalic atraumatic, extra-ocular movements intact, pupils equal and reactive to light bilaterally, mucous membranes moist. Cardiovascular: Heart regular rate and rhythm Chest: Able to complete full sentences, no retractions, no tachypnea Abdomen: abdomen soft, non-tender, non-distended, no organomegaly Musculoskeletal: Pulses present and equal in all extremities, no peripheral edema Motor: no focal deficits noted Neurological: CN II-XII grossly intact, no focal motor or sensory deficits noted Skin: Intact with no visualized rashes Psych: Normal affect and mood Course Vital Signs 12/01/23 12/01/23 12/01/23 03:21 04:09 05:00 Temperature 97.4 F L Pulse Rate 93 85 91 Respiratory 19 19 18 Rate Blood Pressure 96/62 107/60 95/51 O2 Sat by Pulse 94 L 93 L Oximetry EKG Findings - EKG Comments: EKG Findings:: My EKG interpretation: Ventricular rate 93, sinus rhythm,. About 230, QRS 173, QTc 449. No [place] prolongation, no QTC prolongation, no ST or T-wave changes noted. EKG compared to November 28, 2023 showing no changes. Overall, this EKG is unremarkable Medical Decision Making - Medical Decision Making Was pt. sent in by a medical professional or institution (, PA, STATION HELPER, urgent care, hospital, or jail...) When possible be specific @ -No Did you speak to anyone other than the patient for history (EMS, parent, family, police, friend...)? What history was obtained from this source @ -No Did you review nursing and triage notes (agree or disagree)? Why? @ -I reviewed and agree with nursing and triage notes Were old charts reviewed (outside hosp., previous admission, EMS record, old EKG, old radiological studies, urgent care reports/EKG's, jail records)? Report findings @ -Discharge summary and cardiology notes from previous admission was reviewed stating that patient had diagnosis of NSTEMI with plans for medical management. Differential Diagnosis (chest pain, altered mental status, abdominal pain women, abdominal pain men, vaginal bleeding, musculoskeletal, weakness, fever, dyspnea, syncope, headache, dizziness, GI bleed, back pain, seizure, CVA, palpatations, mental health)? @ -Differential Chest Pain: Stable Angina, Unstable Angina, STEMI, NSTEMI Aortic Dissection, Pneumothorax, Musculoskeletal, Esophageal Spasm GERD, Cholecystitis, Pancreatitis, Zoster, this is not meant to be an all-inclusive list. EKG interpreted by me (3pts min.). @ -See above X-rays interpreted by me (1pt min.). @ -Chest x-ray shows no acute processes CT interpreted by me (1pt min.). @ -None done U/S interpreted by me (1pt. min.). @ -None done What testing was considered but not performed or refused? (CT, X-rays, U/S, labs)? Why? @ -None What meds were considered but not given or refused? Why? @ -None Did you discuss the management of the patient with other professionals (professionals i.e. , PA, STATION HELPER, lab, RT, psych nurse, licensed master social worker, flexographic printing machinist, teacher, chief contract officer, spring encaser)? Give summary @ -Case discussed with Dr. Negro at approximately 5:28 AM given that patient's symptoms of chest pain had returned. Repeat EKG did not show any obvious dynamic changes however patient's having active ACS sounding symptoms. Dr. Negro is aware of patient and he did not have any recommendations. Was smoking cessation discussed for >3mins.? @ -No Was critical care preformed (if so, how long)? @ -Yes, 33 minutes Were there social determinants of health that impacted care today? How? (Homelessness, low income, unemployed, alcoholism, drug addiction, transportation, low edu. Level, literacy, decrease access to med. care, fdc, rehab)? @ -No Was there de-escalation of care discussed even if they declined (Discuss DNR or withdrawal of care, Hospice)? DNR status @ -No What co-morbidities impacted this encounter? (DM, HTN, Smoking, COPD, CAD, Cancer, CVA, ARF, Chemo, Hep., AIDS, mental health diagnosis, sleep apnea, morbid obesity)? @ -None Was patient admitted / discharged? Hospital course, mention meds given and route, prescriptions, significant lab abnormalities, going to OR and other pertinent info. @ -88-year-old male presents emergency department with chief complaint of chest pain. Recently admitted and discharged for NSTEMI. Plan at discharge was to treat patient's chest pain medically as family did not want to perform cardiac catheterization according to documentation. Vital signs upon arrival are within acceptable limits. Patient 88 years old not a great candidate for cardiac catheterization given risk outweigh the benefits. laboratory evaluation obtained. CBC within acceptable limits.. Troponin is 0.08. Rest of labs within acceptable limits. Patient began complaining of worsening chest pain. Repeat EKG was obtained showing no obvious dynamic changes. Case was discussed with cardiology given that given his symptomatology he would be a candidate for urgent cardiac catheterization. Cardiology was made aware of patient. Patient started heparin started nitroglycerin drip. Admitted to hospitalist for further care. Undiagnosed new problem with uncertain prognosis? @ -No Drug Therapy requiring intensive monitoring for toxicity (Heparin, Nitro, Insulin, Cardizem)? @ -No Were any procedures done? @ -No Diagnosis/symptom? Acute, or Chronic, or Acute on Chronic? Uncomplicated (without systemic symptoms) or Complicated (systemic symptoms)? @ -Unstable angina/NSTEMI Side effects of treatment? @ -No Exacerbation, Progression, or Severe Exacerbation? @ -No Poses a threat to life or bodily function? How? (Chest pain, USA, MD, pneumonia, PE, COPD, DKA, ARF, appy, cholecystitis, CVA, Diverticulitis, Homicidal, Suicidal, threat to staff... and all critical care pts) @ -yes - Lab Data Result diagrams: 12/01/23 03:44 12/01/23 03:44 Lab Results 12/01/23 12/01/23 12/01/23 Range/Units 03:44 03:44 03:44 WBC 6.8 (3.8-10.6) k/uL RBC 3.35 L (4.30-5.90) m/uL Hgb 10.9 L (13.0-17.5) gm/dL Hct 31.2 L (39.0-53.0) % MCV 93.3 (80.0-100.0) fL MCH 32.6 (25.0-35.0) pg MCHC 35.0 (31.0-37.0) g/dL RDW 13.8 (11.5-15.5) % Plt Count 107 L (150-450) k/uL MPV 9.9 Neutrophils % 62 % Lymphocytes % 24 % Monocytes % 7 % Eosinophils % 4 % Basophils % 1 % Neutrophils # 4.2 (1.3-7.7) k/uL Lymphocytes # 1.6 (1.0-4.8) k/uL Monocytes # 0.5 (0-1.0) k/uL Eosinophils # 0.3 (0-0.7) k/uL Basophils # 0.0 (0-0.2) k/uL PT 10.7 (10.0-12.5) sec INR 1.0 (<1.2) APTT 24.0 (22.0-30.0) sec Sodium 133 L (137-145) mmol/L Potassium 4.9 (3.5-5.1) mmol/L Chloride 93 L (98-107) mmol/L Carbon Dioxide 24 (22-30) mmol/L Anion Gap 16 mmol/L BUN 55 H (9-20) mg/dL Creatinine 7.04 H* (0.66-1.25) mg/dL Est GFR (CKD-EPI)AfAm 7 (>60 ml/min/1.73 sqM) Est GFR (CKD-EPI)NonAf 6 (>60 ml/min/1.73 sqM) Glucose 215 H (74-99) mg/dL Calcium 8.8 (8.4-10.2) mg/dL Magnesium 2.3 (1.6-2.3) mg/dL Total Bilirubin 0.8 (0.2-1.3) mg/dL AST 20 (17-59) U/L ALT 8 (4-49) U/L Alkaline Phosphatase 95 (38-126) U/L Troponin I (0.000-0.034) ng/mL Total Protein 6.5 (6.3-8.2) g/dL Albumin 4.0 (3.5-5.0) g/dL 12/01/23 Range/Units 03:44 WBC (3.8-10.6) k/uL RBC (4.30-5.90) m/uL Hgb (13.0-17.5) gm/dL Hct (39.0-53.0) % MCV (80.0-100.0) fL MCH (25.0-35.0) pg MCHC (31.0-37.0) g/dL RDW (11.5-15.5) % Plt Count (150-450) k/uL MPV Neutrophils % % Lymphocytes % % Monocytes % % Eosinophils % % Basophils % % Neutrophils # (1.3-7.7) k/uL Lymphocytes # (1.0-4.8) k/uL Monocytes # (0-1.0) k/uL Eosinophils # (0-0.7) k/uL Basophils # (0-0.2) k/uL PT (10.0-12.5) sec INR (<1.2) APTT (22.0-30.0) sec Sodium (137-145) mmol/L Potassium (3.5-5.1) mmol/L Chloride (98-107) mmol/L Carbon Dioxide (22-30) mmol/L Anion Gap mmol/L BUN (9-20) mg/dL Creatinine (0.66-1.25) mg/dL Est GFR (CKD-EPI)AfAm (>60 ml/min/1.73 sqM) Est GFR (CKD-EPI)NonAf (>60 ml/min/1.73 sqM) Glucose (74-99) mg/dL Calcium (8.4-10.2) mg/dL Magnesium (1.6-2.3) mg/dL Total Bilirubin (0.2-1.3) mg/dL AST (17-59) U/L ALT (4-49) U/L Alkaline Phosphatase (38-126) U/L Troponin I 0.080 H* (0.000-0.034) ng/mL Total Protein (6.3-8.2) g/dL Albumin (3.5-5.0) g/dL Disposition Clinical Impression: Acute non-ST elevation myocardial infarction (NSTEMI) Disposition: ADMITTED IP TO THIS HOSP Condition: Critical Referrals: Dejan Adkins MD [Primary Care Provider] - 1-2 days Decision Time: 05:40
[2023-12-01 03:54] LABS: Basophils % (A) 1 %; Eosinophils # (A) 0.3 k/uL (0-0.7); Eosinophils % (A) 4 %; HCT 31.2 % (39.0-53.0); HGB 10.9 gm/dL (13.0-17.5); Lymphocytes # (A) 1.6 k/uL (1.0-4.8); Lymphocytes % (A) 24 %; MCH 32.6 pg (25.0-35.0); MCV 93.3 fL (80.0-100.0); Mean Platelet Volume 9.9; Monocytes # (A) 0.5 k/uL (0-1.0); Monocytes % (A) 7 %; Neutrophils # (A) 4.2 k/uL (1.3-7.7); Neutrophils % (A) 62 %; Platelet Count 107 k/uL (150-450); RBC 3.35 m/uL (4.30-5.90); RDW 13.8 % (11.5-15.5); WBC 6.8 k/uL (3.8-10.6)
[2023-12-01 04:06] LABS: ALT 8 U/L (4-49); AST 20 U/L (17-59); African American GFR (CKD) 7 (>60 ml/min/1.73 sqM); Alkaline Phosphatase 95 U/L (38-126); Anion Gap 16 mmol/L; Blood Urea Nitrogen 55 mg/dL (9-20); Calcium 8.8 mg/dL (8.4-10.2); Carbon Dioxide 24 mmol/L (22-30); Chloride 93 mmol/L (98-107); Glucose 215 mg/dL (74-99); Magnesium 2.3 mg/dL (1.6-2.3); Non-African American GFR(CKD) 6 (>60 ml/min/1.73 sqM); Potassium 4.9 mmol/L (3.5-5.1); Prothrombin Time 10.7 sec (10.0-12.5); Sodium 133 mmol/L (137-145); Total Bilirubin 0.8 mg/dL (0.2-1.3); Total Protein 6.5 g/dL (6.3-8.2)
--- NOTE | 2023-12-01 04:12 | XR ---
EXAM: XR Chest, 2 Views CLINICAL HISTORY: ITS.REASON XR Reason: Chest Pain TECHNIQUE: Frontal and lateral views of the chest. COMPARISON: No relevant prior studies available. IMPRESSION: Cardiomegaly. Increased interstitial markings Possible trace left effusion.
[2023-12-01 04:29] VITALS: TEMP 97.4
[2023-12-01] MEDS ORDERED: HEPARIN SODIUM 1,000 UN/ML (10ML VL) IV PRN (05:25)
[2023-12-01] MEDS: MORPHINE SULFATE 2 MG/ML SYRINGE IV STA (05:36)
[2023-12-01] MEDS: HEPARIN SOD,PORK IN 0.45% NACL 25,000 UNIT in 0.45% NACL 1 250ML.BAG IV SCH (05:41)
[2023-12-01] MEDS: HEPARIN SODIUM 1,000 UN/ML (10ML VL) IV ONE ×2 (05:43→09:10)
[2023-12-01] MEDS: SODIUM CHLORIDE 0.9% 1,000 ML IV STA (06:08)
[2023-12-01] MEDS: NALOXONE 0.4 MG/ML 1 ML VIAL IVP STA (06:18)
[2023-12-01] MEDS: NITROGLYCERIN-D5W PMX 50 MG in DEXTROSE/WATER 1 250ML.BAG IV ONE (06:48)
[2023-12-01] MEDS: IPRATROPIUM-ALBUTEROL 3 ML NEB INHALATION STA (06:55)
[2023-12-01] MEDS ORDERED: MORPHINE SULFATE 2 MG/ML SYRINGE IV STA (07:02)
--- NOTE | 2023-12-01 07:16 | ED ---
Medical Decision Making - Medical Decision Making Patient began having symptoms of chest pain and shortness of breath. His reevaluated bedside given some morphine however his blood pressure started to decrease. Was given IV fluids. Symptoms did not really improve. Case was rediscussed with cardiology regarding patient's clinical presentation. Dr. Aguirre states that he would like the patient be started on Levophed and he will come down and evaluate the patient at the bedside. Patient given a DuoNeb treatment for some mild wheezing which is likely secondary to fluid overload however at the bedside states that may be COPD. Patient states very mild improvement of his dyspnea. There is concern that patient's clinical presentation may be secondary to pulmonary embolism given shortness of breath, chest pain and hypotension. Patient sent for CT angiography of the chest. CT angiography was reviewed by me showing no saddle emboli. Dr. Negro evaluated patient will take patient to [facility] emergently. Patient will be admitted to the ICU. - Lab Data Result diagrams: 12/01/23 03:44 12/01/23 03:44 Lab Results 12/01/23 12/01/23 12/01/23 Range/Units 03:44 03:44 03:44 WBC 6.8 (3.8-10.6) k/uL RBC 3.35 L (4.30-5.90) m/uL Hgb 10.9 L (13.0-17.5) gm/dL Hct 31.2 L (39.0-53.0) % MCV 93.3 (80.0-100.0) fL MCH 32.6 (25.0-35.0) pg MCHC 35.0 (31.0-37.0) g/dL RDW 13.8 (11.5-15.5) % Plt Count 107 L (150-450) k/uL MPV 9.9 Neutrophils % 62 % Lymphocytes % 24 % Monocytes % 7 % Eosinophils % 4 % Basophils % 1 % Neutrophils # 4.2 (1.3-7.7) k/uL Lymphocytes # 1.6 (1.0-4.8) k/uL Monocytes # 0.5 (0-1.0) k/uL Eosinophils # 0.3 (0-0.7) k/uL Basophils # 0.0 (0-0.2) k/uL PT 10.7 (10.0-12.5) sec INR 1.0 (<1.2) APTT 24.0 (22.0-30.0) sec Sodium 133 L (137-145) mmol/L Potassium 4.9 (3.5-5.1) mmol/L Chloride 93 L (98-107) mmol/L Carbon Dioxide 24 (22-30) mmol/L Anion Gap 16 mmol/L BUN 55 H (9-20) mg/dL Creatinine 7.04 H* (0.66-1.25) mg/dL Est GFR (CKD-EPI)AfAm 7 (>60 ml/min/1.73 sqM) Est GFR (CKD-EPI)NonAf 6 (>60 ml/min/1.73 sqM) Glucose 215 H (74-99) mg/dL Calcium 8.8 (8.4-10.2) mg/dL Magnesium 2.3 (1.6-2.3) mg/dL Total Bilirubin 0.8 (0.2-1.3) mg/dL AST 20 (17-59) U/L ALT 8 (4-49) U/L Alkaline Phosphatase 95 (38-126) U/L Troponin I (0.000-0.034) ng/mL Total Protein 6.5 (6.3-8.2) g/dL Albumin 4.0 (3.5-5.0) g/dL 12/01/23 Range/Units 03:44 WBC (3.8-10.6) k/uL RBC (4.30-5.90) m/uL Hgb (13.0-17.5) gm/dL Hct (39.0-53.0) % MCV (80.0-100.0) fL MCH (25.0-35.0) pg MCHC (31.0-37.0) g/dL RDW (11.5-15.5) % Plt Count (150-450) k/uL MPV Neutrophils % % Lymphocytes % % Monocytes % % Eosinophils % % Basophils % % Neutrophils # (1.3-7.7) k/uL Lymphocytes # (1.0-4.8) k/uL Monocytes # (0-1.0) k/uL Eosinophils # (0-0.7) k/uL Basophils # (0-0.2) k/uL PT (10.0-12.5) sec INR (<1.2) APTT (22.0-30.0) sec Sodium (137-145) mmol/L Potassium (3.5-5.1) mmol/L Chloride (98-107) mmol/L Carbon Dioxide (22-30) mmol/L Anion Gap mmol/L BUN (9-20) mg/dL Creatinine (0.66-1.25) mg/dL Est GFR (CKD-EPI)AfAm (>60 ml/min/1.73 sqM) Est GFR (CKD-EPI)NonAf (>60 ml/min/1.73 sqM) Glucose (74-99) mg/dL Calcium (8.4-10.2) mg/dL Magnesium (1.6-2.3) mg/dL Total Bilirubin (0.2-1.3) mg/dL AST (17-59) U/L ALT (4-49) U/L Alkaline Phosphatase (38-126) U/L Troponin I 0.080 H* (0.000-0.034) ng/mL Total Protein (6.3-8.2) g/dL Albumin (3.5-5.0) g/dL Disposition Clinical Impression: Acute non-ST elevation myocardial infarction (NSTEMI) Disposition: ADMITTED IP TO THIS HOSP Condition: Critical
[2023-12-01] MEDS: ACETAMINOPHEN IV (For NPO) 1,000 MG in EMPTY BAG 1 BAG IVPB STA (07:26)
[2023-12-01] MEDS: NOREPINEPHRINE 4 MG in SODIUM CHLORIDE 0.9% 250 ML IV ONE (07:29)
--- NOTE | 2023-12-01 07:43 | CT ---
EXAMINATION TYPE: CT angio chest CT DLP: 691.4 mGycm, Automated exposure control for dose reduction was used. DATE OF EXAM: 12/01/2023 7:27 AM COMPARISON: None CLINICAL INDICATION:Male, 88 years old with history of sob; SOB, chest pain TECHNIQUE/CONTRAST: CTA scan of the thorax is performed with IV Contrast, patient injected with 100 mL of Isovue 370, MIP images are created and reviewed these are created on a separate workstation.. FINDINGS: Pulmonary Artery: There is no evidence for a filling defect within the pulmonary vasculature to sugge st acute pulmonary embolism. The pulmonary artery is of normal size. Lungs/Pleura: Interlobular septal thickening. Trace bilateral pleural effusions. No evidence of focal consolidation, pleural effusion or pneumothorax. Airway: Large airways are patent. Heart: Heart is enlarged for size. There is coronary artery atherosclerosis and aortic valve leaflet calcifications. Vasculature: No evidence of aortic aneurysm. Mediastinum: No gross evidence of adenopathy. Musculoskeletal: Moderate degenerative disc disease changes are present throughout the thoracolumbar spine. Soft Tissues: Unremarkable. Lower neck: No significant findings. Upper Abdomen: No significant findings. IMPRESSION: 1. No evidence of pulmonary embolism. 2. Cardiomegaly with right lateral pleural effusions and pulmonary vascular congestion correlate for congestive heart failure. 3. Moderate coronary artery atherosclerosis. 4. Moderate aortic valve leaflet calcifications.
[2023-12-01 08:03] VITALS: RESP 22
[2023-12-01] MEDS ORDERED: LIDOCAINE 1% INJ 10MG/ML (20 ML MDV) ONE (08:11)
[2023-12-01] MEDS ORDERED: HEPARIN SODIUM 1,000 UN/ML (10ML VL) ONE (08:11)
[2023-12-01] MEDS ORDERED: VERAPAMIL 2.5 MG/ML 2 ML AMP ONE (08:11)
[2023-12-01] MEDS: SODIUM CHLORIDE 0.9% 1,000 ML IV ONE ×2 (08:17→08:47)
[2023-12-01] MEDS: SODIUM CHLORIDE 0.9% IV ONE (08:17)
[2023-12-01] MEDS: NOREPINEPHRINE IV ONE (08:17)
--- NOTE | 2023-12-01 08:37 | CONS ---
CONSULTATION CHIEF COMPLAINT: Chest pain. HISTORY OF PRESENT ILLNESS: Mr. Wright is an 88-year-old gentleman with history of end-stage renal disease, on hemodialysis; coronary artery disease, status post prior angioplasty; who was discharged home yesterday following his recent admission to hospital with acute coronary syndrome. He has history of hypertension, dyslipidemia, and CAD, came into hospital with chest pain and left arm pain. He was advised to undergo cardiac catheterization, but opted to be managed medically and was discharged home yesterday in stable condition. He had an echocardiogram on the that showed normal LV systolic function with mild aortic stenosis. He came back last night complaining of chest pain. It is 8/10 intensity, precordial, and radiated down his arm. He is now agreeable to undergoing cardiac catheterization. He is hypotensive and is currently on Levophed for the same. Because of his hypotension, we have difficulty in giving him nitrates or beta-blockers to treat him medically. Understanding risks and benefits, he wishes to proceed with the cath. His EKG shows sinus rhythm with left bundle-branch block. His troponin is slightly elevated. PAST MEDICAL HISTORY: Significant for end-stage renal disease, on hemodialysis; hypertension; dyslipidemia; and diabetes. CURRENT MEDICATIONS: Include; 1. Zyloprim. 2. Flomax. 3. Midodrine. 4. Lopressor. 5. Synthroid. 6. Imdur. 7. Insulin. 8. [place]. 9. Flexeril. 10.Plavix. 11.Zyrtec. 12.Sinemet. 13.Lipitor. 14.Aspirin. 15.ProAir. ALLERGIES: There are multiple drug allergies, they are charted. FAMILY HISTORY: Negative for premature coronary artery disease. SOCIAL HISTORY: Negative for smoking, EtOH abuse, or drug abuse. REVIEW OF SYSTEMS: HEENT: Unremarkable. CARDIAC: As described above. RESPIRATORY: As described above. GI: Negative. GENITOURINARY: Negative. ALLERGY/IMMUNOLOGY: Negative. SKIN: Negative. MUSCULOSKELETAL: Significant for arthritis. PSYCHOSOCIAL: Negative. DERM: Negative. CONSTITUTIONAL: Negative. ONCOLOGICAL: Negative. PHYSICAL EXAMINATION: GENERAL: He is comfortable at rest, hypotensive, has an AV fistula over the left arm. CHEST: Reveals good air entry bilaterally. HEART: Reveals first and second heart sounds. An ejection systolic murmur in the aortic area. ABDOMEN: Soft. EXTREMITIES: Reveal bilateral 1+ pitting edema. ASSESSMENT AND PLAN: 1. Acute [id number] elevation myocardial infarction. 2. Hypotension. 3. End-stage renal disease, on hemodialysis. 4. Coronary artery disease, status post prior angioplasty. PLAN: The patient will undergo cardiac catheterization for further evaluation. MMERNESTINAL / BRON: [id number] /
[2023-12-01] MEDS: LIDOCAINE 1% INJ 10MG/ML (30 ML VIAL-PF) SQ ONE (08:38)
[2023-12-01] MEDS: LIDOCAINE 1% INJ 10MG/ML (20 ML MDV) SQ ONE (08:38)
[2023-12-01] MEDS ORDERED: TICAGRELOR 90 MG TAB ONE (09:03)
[2023-12-01 09:04] VITALS: BP 93/49; PULSE 70
[2023-12-01] MEDS: TICAGRELOR 90 MG TAB PO ONE (09:10)
[2023-12-01] MEDS: MIDAZOLAM 2 MG/2 ML VIAL IVP ONE (09:10)
[2023-12-01] MEDS: IOPAMIDOL-370 100ML BTL INJ ONE (09:20)
--- NOTE | 2023-12-01 09:37 | CONS ---
CONSULTATION ADDENDUM: 88-year-old gentleman who presented to hospital with [id number]-MS-[id number] elevation [place] and underwent cardiac catheterization because of persistent chest discomfort, as we could not manage medically. The patient was hypotensive, was on pressors, and had cardiogenic shock. His diagnostic cardiac catheterization revealed severe left main stenosis and occluded AV groove circ. The patient, as we were getting ready to do angioplasty, developed sudden worsening of the chest pain and had asystole. He was resuscitated. He underwent CPR for about 15 minutes following which the CPR was called off. The patient did not want to have any resuscitation measures and did not want to be intubated. I spoke to the patient's twice, and she did not want any heroic measures or intubation, and we have called off the code. MMERNESTINAL / BRON: [id number] /
--- NOTE | 2023-12-01 10:01 | CC ---
CARDIAC CATHETERIZATION REPORT INDICATION: Acute vze-TM-rpxdepd elevation GA. This is an 88-year-old gentleman with history of coronary artery disease, status post prior angioplasty of the OM branch in [place]. He has a history of nickel allergy, but had done well since that stenting, came to hospital recently with unstable angina, opted for medical therapy, went home, came back with persistent chest pain and had mild iia-GF-fbcuwoh elevation GA as the patient continued to have chest pain in spite of heparin and nitroglycerin. I advised him to undergo cardiac catheterization. He had been explained of risks, benefits, and alternatives, understood and accepted. PROCEDURE NOTE: After obtaining informed consent, left heart catheterization and coronary angiogram were performed via the right radial artery using standard Karen catheters. The patient tolerated the procedure well without any obvious immediate complications. Right radial artery access was obtained using Seldinger technique. 6-Georgian sheath was placed. Catheters and wires were floated into the ascending aorta under fluoroscopic guidance. Total sedation time was 26 minutes. I did not give any further additional sedation here in the labor contract analyst as he received sedation in the ER. The patient was given verapamil per protocol and was already on heparin drip prior to cath. FINDINGS: 1. Hemodynamics: Left ventricular end-diastolic pressure is 18 to 20 mm. There is no significant gradient across the aortic valve. 2. Left ventriculogram: Left ventriculogram is not performed. 3. Angiographic data: a.Right coronary artery: Right coronary artery appears calcified. It is a large- dominant vessel. There are [id number] collaterals. There is a moderate diffuse disease with focal stenotic lesion involving the mid RCA. Left main coronary artery appears calcified. There is a distal 80% left main stenosis of the vessel, divides into LAD and circumflex coronary artery. The previously stented segment in the OM branch appears patent. The AV groove circ appears occluded. There is a moderate disease involving the LAD. CONCLUSION: Severe distal left main stenosis, occluded atrioventricular groove circ, patent stent within the obtuse marginal branch, significant disease involving right coronary artery. PLAN: Dr. Patel, the on-call web site developer, reviewed the angiographic data and will attempt angioplasty of the left main and [place] circumflex coronary artery. The patient had already said he does not want to have bypass surgery. The patient is in cardiogenic shock and is requiring IV Levophed to maintain his blood pressures. Prognosis is guarded. The patient is critically ill. MMODL / IJN: [id number] /
--- NOTE | 2023-12-01 11:40 | P.HPIM ---
History of Present Illness H&P Date: 12/01/23 HISTORY OF PRESENT ILLNESS 88-year-old male one of my office patient with multiple medical problem was known to have history of chronic kidney disease with end-stage renal disease on hemodialysis 3 times a week, type 2 diabetes with multiple complication, lower back pain post surgery with history of dropping foot has use brace on regular basis, history of gout, history of atherosclerotic heart disease with cardiomyopathy, history of severe BPH, history of chronic pain syndrome has been on narcotic with hydrocodone and fentanyl. History of sepsis in the past along with pyelonephritis. History of chronic arthritis, history of chronic anemia, history of chronic neuropathy. He was hospitalized from 09/27 to 09/29/2024 for with recurrent chest pain and angina initially scheduled to have a heart cath to change his mind on the and decided to go on medical management only. He was kept on heparin drip isosorbide and Plavix were initiated apparently was supposed to go see Dr. Caldwell cardiology as an outpatient but the plan along if you develop any further symptoms to return to the hospital for possible need for heart cath. The patient revealed to have recurrent chest pain and angina with worsening shortness of breath with minimal exertion brought back to the emergency room by his troponin still mildly elevated he had dialysis on Saturday will be due again on Saturday rest of his membrane reading the exception of the blood sugar mildly elevated. EKG done 3 times showing left bundle branch block with slight change in the anterolateral leads and alert to have bigeminy through one of them. The patient need to be watched very bit more carefully for ventricular arrhythmia and complication that would be surprised if second troponin comes b ack to be elevated. Will admit patient to the hospital keep him n.p.o. prepare hopefully for heart cath. REVIEW OF SYSTEMS Constitutional: No fever, no chills, no night sweats. No weight change. No weakness, fatigue or lethargy. No daytime sleepiness. EENT: No headache. No blurred vision or double vision, no loss of vision. No loss of Hearing, no ringing in the ears, no dizziness. No nasal drainage or congestion. No epistaxis. No sore throat. Lungs: Slight shortness of breath with cough wheezes no sputum production. Cardiovascular: Positive PND orthopnea palpitations positive angina mild lightheadedness with chest pain and pressure slight shortness of breath.. Abdominal: No abdominal pain but nausea without vomiting vomiting no diarrhea p ositive constipation no tarry stool but positive lack of appetite. Genitourinary: End-stage renal disease on hemodialysis, patient had recurrent UTI and recurrent urinary retention. Musculoskeletal: No myalgias. No muscle weakness, no gait dysfunction, no frequent falls. No back pain. No neck pain. Integumentary: No wounds, no lesions. No rash or pruritus. No unusual bruising. No change in hair or nails. Neurologic: No aphasia. No facial droop. No change in mentation. No head injury. No headache. No paralysis. Positive dropping foot on the left side Psychiatric: No depression. No anxiety. No mood swings. Endocrine: No abnormal blood sugars. No weight change. No excessive sweating or thirst. No cold intolerance. SOCIAL HISTORY Patient does not smoke, no code abuse, no marijuana use, is and lives with his . Patient is going to dialysis 3 times a week, he is a brace on his like for dropping foot especially the left side, walk with a cane and walker. FAMILY HISTORY Patient has 2 children both had AZ in the past. Patient had 10 siblings 3 still living with history of CAD, 7 past from coronary artery disease and cancer. His mother age 86 from uterine cancer, father age 59 from [place]. PHYSICAL EXAMINATION Gen: This is elderly well-developed laying in bed does not look in any respiratory distress. HEENT: Head is atraumatic, normocephalic. Pupils equal, round. Sclerae is anicteric. NECK: Supple. No JVD. No lymphadenopathy. No thyromegaly. LUNGS: Decreased breath some relative fine rhonchi no crackles or wheezes. HEART: Regular rate and rhythm. S1, S2, positive JVD and positive systolic murmur. ABDOMEN: No abdominal pain or tenderness no rebound or rigidity. EXTREMITIES: No pedal edema. No calf tenderness. NEUROLOGICAL: Patient is awake, alert and oriented x3. Cranial nerves 2 through 12 are grossly intact. Positive dropping foot in the left side. ASSESSMENT AND PLAN: Non-ST AZ: Recurrent chest pain and angina: Start patient on heparin drip, consult cardiology and probably patient will go for heart cath while he is in the hospital this time. His echocardiogram from 16 was consistent with well- preserved ejection fraction 50-55 percentile with mild aortic stenosis, tricuspid regurgitation and mild mitral regurgitation. Otherwise no wall motion abnormality. Chest pain and angina: Patient is having recurrent symptoms most likely with her finding consistent coronary artery disease awaiting for heart cath. Recurrent shortness of breath and dyspnea: Combination of probably diastolic congestive heart failure along with fluid overload from hemodialysis. Cardiogenic shock: Patient was started on vasopressor, he is more an urgent to go to the Commodities Manager. Diastolic congestive heart failure: Patient has been on medical management with furosemide 40 mg twice a day, nitro, lisinopril and metoprolol. Patient Lasix will be held for now also hold his lisinopril. Arrhythmia with Mild Tachycardia None A. fib Base: Patient Remain on Metoprolol 25 Mg Twice a Day. Type 2 diabetes: Resume his insulin with Accu-Cheks sliding scale coverage his last A1c has been around 7. Parkinson disease: Has been doing very well on Carbidopa-levodopa which we will resume his medication. Severe neuropathy: Has been on Lyrica 100 mg twice a day. Gout: Patient remain on allopurinol 100 mg a day. BPH: Continue to watch for any urinary retention patient remain on Low-Dose and Add Finasteride Has Been Seen Urology Regularly. GI prophylaxis: Continue patient on pantoprazole. DVT prophylaxis: Knee-high ALVARO hose and early mobilization. CODE STATUS: Full code. Admit patient to the hospital for more than 2 night stay. Past Medical History Past Medical History: Coronary Artery Disease (CAD), Cancer, Chest Pain / Angina, Diabetes Mellitus, Hyperlipidemia, Hypertension, Osteoarthritis (OA), Prostate Disorder, Renal Disease Additional Past Medical History / Comment(s): parkinson's, hx gout, hx basal cell carcinoma on head, melanoma lt shoulder, hx kidney stones, hx migraines, constipation, dialysis started august 2020 on mon,sat,saturday schedule, fistula in left arm december 2020. History of Any Multi-Drug Resistant Organisms: None Reported, MRSA Date of last positivie culture/infection: 2004 MDRO Source:: rt shoulder Past Surgical History: Back Surgery, Cholecystectomy, Ear Surgery, Heart Catheterization, Heart Catheterization With Stent, Joint Replacement, Orthopedic Surgery, Tonsillectomy Additional Past Surgical History / Comment(s): cody knee replacement, cody. carpal tunnel release, cody shoulder rotator cuff repair, back surgery x5, (laminectomy, laminectomy with fusion, laminectomy and partial removal of fusion x2) lumbar fusionL4,L5, lt ear surgery x3 with replacement malleus/incus/stapes, revision of tympanoplasty, wide excision melanoma left shoulder, I&D rt thumb, lithotripsy,cystoscopy with kidney stone retrieved, cody cataracts, face and left ear multiple lesion removal, oral surgery, one cardiac stent, cody knee arthroscopy, debridement of rt shoulder x 2 with partial closure of rt shoulder, Past Anesthesia/Blood Transfusion Reactions: Family History of Problems w/ Anesthesia Additional Past Anesthesia/Blood Transfusion Reaction / Comment(s): hx vertigo, brother had issues-not sure what it was Date of Last Stent Placement:: 06/2018 Past Psychological History: No Psychological Hx Reported Smoking Status: Never smoker Past Alcohol Use History: None Reported Past Drug Use History: None Reported - Past Family History Mother Family Medical History: Cancer Father Family Medical History: Coronary Artery Disease (CAD), Hypertension Brother(s) Family Medical History: Cancer Sister(s) Family Medical History: Cancer, COPD, Diabetes Mellitus, Hypertension Medications and Allergies Home Medications Medication Instructions Recorded Confirmed Type allopurinoL [Zyloprim] 100 mg PO HS 06/02/16 12/01/23 History Cetirizine HCl [Zyrtec] 10 mg PO DAILY 05/26/18 12/01/23 History Finasteride [Proscar] 5 mg PO HS 05/26/18 12/01/23 History Tamsulosin HCl [Flomax] 0.4 mg PO PC-BRKFST 05/26/18 12/01/23 History Nitroglycerin Sl Tabs [Nitrostat] 0.4 mg SUBLINGUAL Q5M PRN #25 tab 06/04/18 12/01/23 Rx Aspirin 81 mg PO DAILY 07/18/19 12/01/23 History Carbidopa-Levodopa 25-100 mg 1 tab PO QID 07/18/19 12/01/23 History [Sinemet 25-100 mg] Albuterol Sulfate [Proair Hfa] 2 puff INHALATION RT-Q4H PRN 08/15/20 12/01/23 History Levothyroxine Sodium [Synthroid] 50 mcg PO HS 08/15/20 12/01/23 History Isosorbide Mononitrate ER [Imdur] 30 mg PO SUTUTHSA 01/14/22 12/01/23 History Lactulose [Constulose] 30 ml PO DAILY 01/14/22 12/01/23 History Midodrine HCl [ProAmatine] 10 mg PO TID 01/14/22 12/01/23 History Pregabalin [Lyrica] 100 mg PO BID 01/14/22 12/01/23 History Sevelamer Carbonate 2,400 mg PO TID-W/MEALS 01/14/22 12/01/23 History Insulin Aspart [NovoLOG Flexpen] 5 units SQ AC-TID 01/28/23 12/01/23 History Insulin Glargine,Hum.rec.anlog 25 units SQ DAILY 01/28/23 12/01/23 History [Toujeo Solostar] Metoprolol Tartrate [Lopressor] 25 mg PO SUTUTHSA@0900,2100 01/28/23 12/01/23 History Calcium Acetate [PhosLo] 1,334 mg PO DAILY PRN 11/28/23 12/01/23 History Calcium Acetate [PhosLo] 667 mg PO TID-W/MEALS 11/28/23 12/01/23 History Cyclobenzaprine [Flexeril] 10 mg PO DAILY PRN 11/28/23 12/01/23 History Folic Acid/Vit B Complex and C 0.8 mg PO W/SUPPER 11/28/23 12/01/23 History [Nephro-Paulo Tablet] HYDROcodone/APAP 10-325MG [Freedom 1 tab PO Q4HR PRN 11/28/23 12/01/23 History 10-325] Insulin Aspart [NovoLOG Flexpen] See Protocol SQ AC-TID 11/28/23 12/01/23 History Melatonin 3 mg PO HS 11/28/23 12/01/23 History polyethylene glycoL 3350 [Miralax] 17 gm PO DAILY 11/28/23 12/01/23 History Atorvastatin [Lipitor] 80 mg PO HS #90 tab 11/30/23 12/01/23 Rx Clopidogrel [Plavix] 75 mg PO DAILY #90 tab 11/30/23 12/01/23 Rx Allergies Allergy/AdvReac Type Severity Reaction Status Date / Time cephalexin [From Keflex] Allergy Itching Verified 12/01/23 10:39 sulfamethoxazole Allergy Itching Verified 12/01/23 10:39 [From Bactrim] trimethoprim [From Bactrim] Allergy Itching Verified 12/01/23 10:39 baclofen AdvReac Severe Nausea & Verified 12/01/23 10:39 Vomiting fentanyl AdvReac Hallucinati Verified 12/01/23 10:39 ons hydromorphone HCl AdvReac Nausea & Verified 12/01/23 10:39 [From Dilaudid] Vomiting morphine AdvReac Hallucinati Verified 12/01/23 10:39 ons vancomycin AdvReac Chills, Verified 12/01/23 10:39 Sweating, Did not feel well Physical Exam Vitals: Vital Signs Temp Pulse Resp BP Pulse Ox 12/01/23 06:24 70 20 80/50 99 12/01/23 06:18 17 12/01/23 06:11 77 19 94/61 96 12/01/23 05:00 91 18 95/51 93 L 12/01/23 04:09 85 19 107/60 12/01/23 03:21 97.4 F L 93 19 96/62 94 L Intake and Output 11/30/23 11/30/23 12/01/23 14:59 22:59 06:59 Other: Weight 127.006 kg Results CBC & Chem 7: 12/01/23 03:44 12/01/23 03:44 Labs: Abnormal Lab Results - Last 24 Hours (Table) 12/01/23 12/01/23 12/01/23 Range/Units 03:44 03:44 03:44 RBC 3.35 L (4.30-5.90) m/uL Hgb 10.9 L (13.0-17.5) gm/dL Hct 31.2 L (39.0-53.0) % Plt Count 107 L (150-450) k/uL Sodium 133 L (137-145) mmol/L Chloride 93 L (98-107) mmol/L BUN 55 H (9-20) mg/dL Creatinine 7.04 H* (0.66-1.25) mg/dL Glucose 215 H (74-99) mg/dL Troponin I 0.080 H* (0.000-0.034) ng/mL
--- NOTE | 2023-12-01 11:44 | P.DS ---
Providers Date of admission: 12/01/23 05:29 Attending physician: Dejan Adkins Consults: 12/01/23 05:29 Consult Physician Urgent Consulting Provider: Demetris Caldwell Consult Reason/Comments: unstable angina/nstemi Do you want consulting provider notified?: Already Contacted 12/01/23 06:42 Consult Physician Urgent Consulting Provider: Perez Bentley Consult Reason/Comments: esrd Do you want consulting provider notified?: Yes Primary care physician: Dejan Jed [facility] Course: HISTORY OF PRESENT ILLNESS 88-year-old male one of my office patient with multiple medical problem was known to have history of chronic kidney disease with end-stage renal disease on hemodialysis 3 times a week, type 2 diabetes with multiple complication, lower back pain post surgery with history of dropping foot has use brace on regular basis, history of gout, history of atherosclerotic heart disease with cardiomyopathy, history of severe BPH, history of chronic pain syndrome has been on narcotic with hydrocodone and fentanyl. History of sepsis in the past along with pyelonephritis. History of chronic arthritis, history of chronic anemia, history of chronic neuropathy. He was hospitalized from 09/27 to 09/29/2024 for with recurrent chest pain and angina initially scheduled to have a heart cath to change his mind on the and decided to go on medical management only. He was kept on heparin drip isosorbide and Plavix were initiated apparently was supposed to go see Dr. Caldwell cardiology as an outpatient but the plan along if you develop any further symptoms to return to the hospital for possible need for heart cath. The patient revealed to have recurrent chest pain and angina with worsening shortness of breath with minimal exertion brought back to the emergency room by his troponin still mildly elevated he had dialysis on Saturday will be due again on Saturday rest of his membrane reading the exception of the blood sugar mildly elevated. EKG done 3 times showing left bundle branch block with slight change in the anterolateral leads and alert to have bigeminy through one of them. The patient need to be watched very bit more carefully for ventricular ar rhythmia and complication that would be surprised if second troponin comes back to be elevated. Will admit patient to the hospital keep him n.p.o. prepare hopefully for heart cath. REVIEW OF SYSTEMS Constitutional: No fever, no chills, no night sweats. No weight change. No weakness, fatigue or lethargy. No daytime sleepiness. EENT: No headache. No blurred vision or double vision, no loss of vision. No loss of Hearing, no ringing in the ears, no dizziness. No nasal drainage or congestion. No epistaxis. No sore throat. Lungs: Slight shortness of breath with cough wheezes no sputum production. Cardiovascular: Positive PND orthopnea palpitations positive angina mild lightheadedness with chest pain and pressure slight shortness of breath.. Abdominal: No abdominal pain but nausea without vomiting vomiting no diarrhea positive constipation no tarry stool but positive lack of appetite. Genitourinary: End-stage renal disease on hemodialysis, patient had recurrent UTI and recurrent urinary retention. Musculoskeletal: No myalgias. No muscle weakness, no gait dysfunction, no frequent falls. No back pain. No neck pain. Integumentary: No wounds, no lesions. No rash or pruritus. No unusual bruising. No change in hair or nails. Neurologic: No aphasia. No facial droop. No change in mentation. No head injury. No headache. No paralysis. Positive dropping foot on the left side Psychiatric: No depression. No anxiety. No mood swings. Endocrine: No abnormal blood sugars. No weight change. No excessive sweating or thirst. No cold intolerance. SOCIAL HISTORY Patient does not smoke, no code abuse, no marijuana use, is and lives with his . Patient is going to dialysis 3 times a week, he is a brace on his like for dropping foot especially the left side, walk with a cane and walker. FAMILY HISTORY Patient has 2 children both had OH in the past. Patient had 10 siblings 3 still living with history of CAD, 7 past from coronary artery disease and cancer. His mother age 86 from uterine cancer, father age 59 from OH. PHYSICAL EXAMINATION Gen: This is elderly well-developed laying in bed does not look in any respiratory distress. HEENT: Head is atraumatic, normocephalic. Pupils equal, round. Sclerae is anicteric. NECK: Supple. No JVD. No lymphadenopathy. No thyromegaly. LUNGS: Decreased breath some relative fine rhonchi no crackles or wheezes. HEART: Regular rate and rhythm. S1, S2, positive JVD and positive systolic murmur. ABDOMEN: No abdominal pain or tenderness no rebound or rigidity. EXTREMITIES: No pedal edema. No calf tenderness. NEUROLOGICAL: Patient is awake, alert and oriented x3. Cranial nerves 2 through 12 are grossly intact. Positive dropping foot in the left side. ASSESSMENT AND PLAN: -Acute cardiogenic shock from acute OH: With severe stenosis of the LAD. Which patient ended up having severe arrhythmia and asystole and ended up dying from it. -Acute OH with severe stenosis of the LAD: Ended up going to the [facility] and finding consistent with severe stenosis of the LAD before he went for angioplasty and stent patient ended up having asystole in the past. Chest pain and Unstable angina: Patient is having recurrent symptoms most likely with her finding consistent coronary artery disease awaiting for heart cath. Recurrent shortness of breath and dyspnea: Combination of probably diastolic congestive heart failure along with fluid overload from hemodialysis. Cardiogenic shock: Patient was started on vasopressor, he is more an urgent to go to the [facility]. Diastolic congestive heart failure: Patient has been on medical management with furosemide 40 mg twice a day, nitro, lisinopril and metoprolol. Patient Lasix will be held for now also hold his lisinopril. Arrhythmia with Mild Tachycardia None A. fib Base: Patient Remain on Metoprolol 25 Mg Twice a Day. Type 2 diabetes: Resume his insulin with Accu-Cheks sliding scale coverage his last A1c has been around 7. Parkinson disease: Has been doing very well on Carbidopa-levodopa which we will resume his medication. Severe neuropathy: Has been on Lyrica 100 mg twice a day. Gout: Patient remain on allopurinol 100 mg a day. BPH: Continue to watch for any urinary retention patient remain on Low-Dose and Add Finasteride Has Been Seen Urology Regularly. Hospital course: Patient ended up going to the [facility] finding consistent with severe stenosis in the LAD, patient was in cardiogenic shock at the time and in prepare for going for angioplasty he went in asystole and arrhythmia and the wishes the and him has not to be resuscitated and not to go on mechanical ventilation. Patient passed peacefully in the [facility] from acute cardiogenic shock and acute myocardial infarction. Patient Condition at Discharge: Critical Plan - Discharge Summary New Discharge Prescriptions: No Action allopurinoL [Zyloprim] 100 mg PO HS Cetirizine HCl [Zyrtec] 10 mg PO DAILY Tamsulosin HCl [Flomax] 0.4 mg PO PC-BRKFST Finasteride [Proscar] 5 mg PO HS Nitroglycerin Sl Tabs [Nitrostat] 0.4 mg SUBLINGUAL Q5M PRN #25 tab PRN Reason: Chest Pain Aspirin 81 mg PO DAILY Carbidopa-Levodopa 25-100 mg [Sinemet 25-100 mg] 1 tab PO QID Levothyroxine Sodium [Synthroid] 50 mcg PO HS Albuterol Sulfate [Proair Hfa] 2 puff INHALATION RT-Q4H PRN PRN Reason: Shortness Of Breath Midodrine HCl [ProAmatine] 10 mg PO TID Sevelamer Carbonate 2,400 mg PO TID-W/MEALS Isosorbide Mononitrate ER [Imdur] 30 mg PO SUTUTHSA Metoprolol Tartrate [Lopressor] 25 mg PO SUTUTHSA@0900,2100 Melatonin 3 mg PO HS Insulin Aspart [NovoLOG Flexpen] See Protocol SQ AC-TID Folic Acid/Vit B Complex and C [Nephro-Paulo Tablet] 0.8 mg PO W/SUPPER Calcium Acetate [PhosLo] 1,334 mg PO DAILY PRN PRN Reason: W/SNACKS Atorvastatin [Lipitor] 80 mg PO HS #90 tab Lactulose [Constulose] 30 ml PO DAILY Pregabalin [Lyrica] 100 mg PO BID Insulin Glargine,Hum.rec.anlog [Toujeo Solostar] 25 units SQ DAILY Insulin Aspart [NovoLOG Flexpen] 5 units SQ AC-TID polyethylene glycoL 3350 [Miralax] 17 gm PO DAILY HYDROcodone/APAP 10-325MG [[place] 10-325] 1 tab PO Q4HR PRN PRN Reason: Pain Cyclobenzaprine [Flexeril] 10 mg PO DAILY PRN PRN Reason: SHOOTING LEG PAIN Calcium Acetate [PhosLo] 667 mg PO TID-W/MEALS Clopidogrel [Plavix] 75 mg PO DAILY #90 tab Discharge Medication List allopurinoL [Zyloprim] 100 mg PO HS 06/02/16 [History] Cetirizine HCl [Zyrtec] 10 mg PO DAILY 05/26/18 [History] Finasteride [Proscar] 5 mg PO HS 05/26/18 [History] Tamsulosin HCl [Flomax] 0.4 mg PO PC-BRKFST 08/13/18 [History] Nitroglycerin Sl Tabs [Nitrostat] 0.4 mg SUBLINGUAL Q5M PRN #25 tab 06/04/18 [Rx] Aspirin 81 mg PO DAILY 07/18/19 [History] Carbidopa-Levodopa 25-100 mg [Sinemet 25-100 mg] 1 tab PO QID 07/18/19 [History] Albuterol Sulfate [Proair Hfa] 2 puff INHALATION RT-Q4H PRN 08/15/20 [History] Levothyroxine Sodium [Synthroid] 50 mcg PO HS 08/15/20 [History] Isosorbide Mononitrate ER [Imdur] 30 mg PO SUTUTHSA 01/14/22 [History] Lactulose [Constulose] 30 ml PO DAILY 01/14/22 [History] Midodrine HCl [ProAmatine] 10 mg PO TID 01/14/22 [History] Pregabalin [Lyrica] 100 mg PO BID 01/14/22 [History] Sevelamer Carbonate 2,400 mg PO TID-W/MEALS 01/14/22 [History] Insulin Aspart [NovoLOG Flexpen] 5 units SQ AC-TID 01/28/23 [History] Insulin Glargine,Hum.rec.anlog [Toujeo Solostar] 25 units SQ DAILY 01/28/23 [History] Metoprolol Tartrate [Lopressor] 25 mg PO SUTUTHSA@0900,2100 01/28/23 [History] Calcium Acetate [PhosLo] 1,334 mg PO DAILY PRN 11/28/23 [History] Calcium Acetate [PhosLo] 667 mg PO TID-W/MEALS 11/28/23 [History] Cyclobenzaprine [Flexeril] 10 mg PO DAILY PRN 11/28/23 [History] Folic Acid/Vit B Complex and C [Nephro-Paulo Tablet] 0.8 mg PO W/SUPPER 11/28/23 [History] HYDROcodone/APAP 10-325MG [[place] 10-325] 1 tab PO Q4HR PRN 11/28/23 [History] Insulin Aspart [NovoLOG Flexpen] See Protocol SQ AC-TID 11/28/23 [History] Melatonin 3 mg PO HS 11/28/23 [History] polyethylene glycoL 3350 [Miralax] 17 gm PO DAILY 11/28/23 [History] Atorvastatin [Lipitor] 80 mg PO HS #90 tab 11/30/23 [Rx] Clopidogrel [Plavix] 75 mg PO DAILY #90 tab 11/30/23 [Rx] Follow up Appointment(s)/Referral(s): Dejan Adkins MD [Primary Care Provider] - 1-2 days Discharge Disposition: - Preliminary Cause of Preliminary Cause of : acute Myocardial infarction
[2023-12-02] MEDS ORDERED: ASPIRIN 325 MG TAB PO SCH (09:00)
--- NOTE | 2023-12-03 21:09 | CDI ---
Documentation Clarification Form Date: From: Pauly Navarro Phone: Admit Date: 12/01/2023 05:29:00 AM Patient Name: Asher Wright Visit Number: [id number] Discharge Date: 12/01/2023 10:30:00 AM ATTENTION: The Clinical Documentation Specialists (CDI) and [facility] Coding Staff appreciate your assistance in clarifying documentation. Please respond to the clarification below the line at the bottom and electronically sign. The CDI & [facility] Coding staff will review the response and follow-up if needed. Please note: Queries are made part of the Legal Health Record. If you have any questions, please contact the author of this message via ITS. Dr. Dejan Adkins Your patient has the documented diagnosis chronic diastolic congestive heart failure per H&P and fluid overload from hemodialysis. Additional information regarding the acuity of CHF is requested. History/Risk Factors: 88yo M, NSTEMI, ESRD, HTN, CDHF, CM, DMII Clinical Indicators: VS/Pulse OX: 93-94% Echocardiogram:from 16 was consistent with well- pEF 50-55% with mildAS, TR & MR. Otherwisenowall motion abnormality. Chest X Ray: Cardiomegaly. Increased interstitial markings. Possibletrace lefteffusion. Treatment: Patient Lasix will be held for now also hold his Lisinopril. In your professional opinion, can you please clarify the acuity of CHF if known? [ ] Chronic Diastolic Heart Failure (preserved EF) [xx ] Acute on Chronic Diastolic Heart Failure (preserved EF) [ ] Other, please specify [ ] Unable to determine (Template Last Revised: November 2020) MTDD
== END 2023-12-01 10:30 | disposition expired ==
LOC: EC 03:19 → 3SCARD 05:29 → 2SICU 07:27
PROVIDERS: ADMIT Internal Medicine Geriatric Medicine; ATTEND Internal Medicine Geriatric Medicine
PROC: 4A023N7 Measurement of Cardiac Sampling and Pressure, Left Heart, Percutaneous Approach (ICD-10-PCS; 2023-12-01)
PROC: B2111ZZ Fluoroscopy of Multiple Coronary Arteries using Low Osmolar Contrast (ICD-10-PCS; 2023-12-01)
PROC: 3E033XZ Introduction of Vasopressor into Peripheral Vein, Percutaneous Approach (ICD-10-PCS; principal; 2023-12-01 08:02)
DX: I21.4 Non-ST elevation (NSTEMI) myocardial infarction (principal); I50.33 Acute on chronic diastolic (congestive) heart failure; N18.6 End stage renal disease; I47.0 Re-entry ventricular arrhythmia; I13.2 Hypertensive heart and chronic kidney disease with heart failure and with stage 5 chronic kidney disease, or end stage renal disease; I42.9 Cardiomyopathy, unspecified; D63.1 Anemia in chronic kidney disease; Z99.2 Dependence on renal dialysis; E11.22 Type 2 diabetes mellitus with diabetic chronic kidney disease; E11.40 Type 2 diabetes mellitus with diabetic neuropathy, unspecified; I25.110 Atherosclerotic heart disease of native coronary artery with unstable angina pectoris; I08.3 Combined rheumatic disorders of mitral, aortic and tricuspid valves; R57.0 Cardiogenic shock; I48.91 Unspecified atrial fibrillation; Z79.4 Long term (current) use of insulin; G20.A1 Parkinson's disease without dyskinesia, without mention of fluctuations; I44.7 Left bundle-branch block, unspecified; M10.9 Gout, unspecified; N40.0 Benign prostatic hyperplasia without lower urinary tract symptoms; Z66 Do not resuscitate; E78.5 Hyperlipidemia, unspecified; G89.4 Chronic pain syndrome; M21.372 Foot drop, left foot; Z96.653 Presence of artificial knee joint, bilateral; Z79.82 Long term (current) use of aspirin; Z79.890 Hormone replacement therapy; Z79.02 Long term (current) use of antithrombotics/antiplatelets; Z79.899 Other long term (current) drug therapy; Z88.1 Allergy status to other antibiotic agents; Z88.5 Allergy status to narcotic agent; Z85.828 Personal history of other malignant neoplasm of skin; Z85.820 Personal history of malignant melanoma of skin; Z86.14 Personal history of Methicillin resistant Staphylococcus aureus infection; Z95.5 Presence of coronary angioplasty implant and graft; Z91.048 Other nonmedicinal substance allergy status; Z82.49 Family history of ischemic heart disease and other diseases of the circulatory system
CPT/HCPCS: 36415; 71046; 71275; 80053; 83735; 84484; 85025; 85610; 85730; 92950; 93005; 93458; 96365; 96368; 96375; 99291